=== PATIENT | female | born 1970 | race African-American/Black ===

== ENCOUNTER 2018-07-12 20:06 | Inpatient (IN) | payer MEDICAID ==
--- NOTE | 2018-07-12 20:43 | ED Physician Chart ---
ED Chief Complaint/HPI - Patient Information Date Seen:: 07/12/18 Time Seen:: 20:20 Chief Complaint:: anasarca History of Present Illness:: 47 [place]asarca diffuse swelling hx of htn ESRD ON HEMODIALYSIS mwf hx of seizure disorder multiple medical problems here for increased fluid overload and sob and hypoxia Allergies:: Allergies Allergy/AdvReac Type Severity Reaction Status Date / Time No Known Allergies Allergy Verified 07/12/18 20:15 Vitals:: Vital Signs - 8 hr 07/12/18 20:06 Temp 98.4 F HR 94 RR 18 BP 165/87 O2 Sat % 100 ED Review of Systems - Review of Systems General/Constitutional: No fever Skin: Skin lesions (cocyx lt lateral leg ulcer) Cardio Vascular: No chest pain Pulmonary: SOB GI: No vomiting, No diarrhea Endocrine: No polyuria Neurological: No syncope ED Past Medical History - Past Medical History Past Medical History: HTN, CAD, ESRD, Seizures Family Medical History - Family Member Mother History Unknown: Yes ED Physical Exam - Physical Examination Other Gen/Cons comments:: pt with eyes closed not too verbal Head: Atraumatic Other Skin comments:: decubiti coccyx and lt lower leg ulcer Respiratory: Nl effort/Exclusion Cardio Vascular: RRR Other Neuro/Psych comments:: aphasia and quadraplegianot toomany responses she is trying to look squint and squeeze rt hand ED Assessment - Assessment General Assessment: ESRD ON DIALYSIS WITH WOSENING ANASARCA SOB AND HYPOXIA REPORTED TO SAT 80'S IN [facility] HERE 100 PERCENT ON O2 ED Septic Shock - . Is Septic Shock (SBP<90, OR Lactate>4 mmol\L) present?: No - <6hrs of presentation: Vital Signs: Vital Signs - 8 hr 07/12/18 20:06 Temp 98.4 F HR 94 RR 18 BP 165/87 O2 Sat % 100 ED Reassessment (Disposition) - Reassessment Reassessment Condition:: Improved - Diagnosis Diagnosis:: ANASARCA ESRD SOB HYPOXIA - Patient Disposition Admitted to:: Telemetry Condition at Disposition:: Improved
[2018-07-12 21:10] LABS: % EOSINOPHILS 0.4 % (0.0-5.0); % LYMPHOCYTES 24.1 % (20.0-50.0); % MONOCYTES 7.2 % (2.0-10.0); % NEUTROPHILS 68.3 % (40.0-80.0); HEMATOCRIT 33.3 % (41.0-60); HEMOGLOBIN 11.2 gm/dL (12-16); MEAN CELL VOLUME 88.5 fl (81-100); MEAN CORPUSCULAR HEMOGLOBIN 29.6 pg (27.0-31.0); MEAN CORPUSCULAR HGB CONC 33.5 pg (28.0-36.0); MONOCYTE ABSOLUTE 0.6 Th/cmm (0.3-1.0); NEUTROPHILE ABSOLUTE 5.5 Th/cmm (1.8-8.0); PLATELET COUNT 143 Th/cmm (150-400); RED BLOOD COUNT 3.76 Mil/cmm (3.80-5.10); WHITE BLOOD COUNT 8.1 Th/cmm (4.8-10.8)
[2018-07-12 21:23] LABS: URINE SOURCE FOLEY PORT
[2018-07-12 21:33] LABS: ALB/GLOB RATIO 0.7 (1.0-1.8); BILIRUBIN,TOTAL 0.2 mg/dL (0.3-1.0); CALCIUM SERUM 8.7 mg/dL (8.6-10.3); CARBON DIOXIDE 26.4 mEq/L (21.0-31.0); CREATININE - SERUM 2.8 mg/dL (0.6-1.2); GFR AFRICAN-AMERICAN 23.1 ml/min (>90); GFR NON AFRICAN-AMERICAN 19.1 ml/min; POTASSIUM SERUM 4.4 mEq/L (3.5-5.1); TOTAL PROTEIN,SERUM 5.1 gm/dL (6.0-8.3)
[2018-07-12 21:34] LABS: TROP I 0.61 ng/mL (0.01-0.05)
[2018-07-12 21:42] LABS: URINE BILIRUBIN NEGATIVE (NEGATIVE); URINE BLOOD TRACE (NEGATIVE); URINE GLUCOSE (UA) NEGATIVE (NEGATIVE); URINE KETONE NEGATIVE (NEGATIVE); URINE LEUKOCYTE ESTERASE LARGE (NEGATIVE); URINE MICROSCOPIC INDICATED? YES; URINE NITRATE NEGATIVE (NEGATIVE); URINE PH 8.5 (4.6 - 8.0); URINE PROTEIN 100 mg/dL (NEGATIVE); URINE UROBILINOGEN 0.2 E.U./dL (0.2 - 1.0)
[2018-07-12 21:44] LABS: URINE CLARITY CLOUDY (CLEAR); URINE COLOR YELLOW
[2018-07-12 21:46] LABS: URINE BACTERIA MANY /hpf (NONE SEEN); URINE EPITHELIAL CELLS MODERATE /lpf (FEW); URINE WBC >100 /hpf (0-5)
[2018-07-12] MEDS ORDERED: Piperacillin Sodium/Tazobact 3.375 gm Vial IV ONE (21:49)
[2018-07-13] MEDS ORDERED: Dextrose 50% 50 mL Abboject IVP ONE (03:41)
[2018-07-13] MEDS: D5-0.45NS 1,000 ML IV SCH (04:03)
[2018-07-13] MEDS ORDERED: Dextrose 50% 50 mL Abboject IVP PRN (04:11)
[2018-07-13] MEDS ORDERED: GLUCAGON HCl 1 MG KIT IM PRN (04:11)
[2018-07-13 04:42] LABS: EOSINOPHILE ABSOLUTE 0.1 Th/cmm (0.1-0.4); HEMOGLOBIN 9.2 gm/dL (12-16); NEUTROPHILE ABSOLUTE 5.1 Th/cmm (1.8-8.0); WHITE BLOOD COUNT 7.8 Th/cmm (4.8-10.8)
[2018-07-13 04:49] LABS: % EOSINOPHILS 1.3 % (0.0-5.0); % LYMPHOCYTES 23.8 % (20.0-50.0); % MONOCYTES 9.4 % (2.0-10.0); % NEUTROPHILS 65.5 % (40.0-80.0); LYMPHOCYTE ABSOLUTE 1.9 Th/cmm (1.5-3.0); MEAN CELL VOLUME 88.1 fl (81-100); MEAN CORPUSCULAR HEMOGLOBIN 29.7 pg (27.0-31.0); MEAN CORPUSCULAR HGB CONC 33.8 pg (28.0-36.0); MEAN PLATELET VOLUME 8.1 fl; MONOCYTE ABSOLUTE 0.7 Th/cmm (0.3-1.0); PLATELET COUNT 133 Th/cmm (150-400); RED BLOOD COUNT 3.08 Mil/cmm (3.80-5.10); RED CELL DISTRIBUTION WIDTH 17.5 % (11.5-20.0)
[2018-07-13 04:53] LABS: HEMATOCRIT 27.2 % (41.0-60)
[2018-07-13 05:40] LABS: ANION GAP 8.5 (7.0-16.0); CALCIUM SERUM 8.2 mg/dL (8.6-10.3); CARBON DIOXIDE 27.8 mEq/L (21.0-31.0); CREATININE - SERUM 2.9 mg/dL (0.6-1.2); GFR AFRICAN-AMERICAN 22.2 ml/min (>90); GFR NON AFRICAN-AMERICAN 18.3 ml/min; POTASSIUM SERUM 4.3 mEq/L (3.5-5.1)
[2018-07-13] MEDS ORDERED: Piperacillin Sodium/Tazobact 2.25 gm Vial IV ONE (05:50)
[2018-07-13] MEDS: INSULIN ASPART SLIDING SCALE 100 UNITS/ML UNIT SUBQ SCH ×3 (06:09→19:09)
--- NOTE | 2018-07-13 08:37 | Diagnostic Imaging Report ---
Portable chest x-ray HISTORY: Shortness of breath The heart size appears generous. Density seen in the right lower hemithorax consistent with small to moderate right pleural effusion. IMPRESSION: 1. Findings consistent with a small to moderate right pleural effusion.
[2018-07-13] MEDS ORDERED: Albuterol/Ipratropium Neb 3 ML AERS HHN PRN (15:15)
[2018-07-13] MEDS: Docusate Sodium 100 mg/10 mL UD PO SCH (16:46)
--- NOTE | 2018-07-13 16:51 | History & Physical ---
ADMIT DATE: 07/12/2018 HISTORY OF PRESENT ILLNESS: The patient came to the Emergency Room from [facility]. Apparently, the patient was having severe facial swelling, extremity swelling, and decreased saturation. The patient was given glucagon in the ER. The patient's glucose came up with the patient known to have history of diabetes, was on insulin long acting. The patient known to have history of end-stage renal disease, on dialysis; history of hepatitis C; history of GERD, history of Parkinson; history of ____, history of seizures, and has functional quadriparesis. PHYSICAL EXAMINATION: GENERAL: The patient on examination was alert with generalized anasarca. HEAD: Normal. ENT: Normal. NECK: Supple, nontender. LUNGS: Bilateral rales. CARDIOVASCULAR SYSTEM: S1, S2 heard. ABDOMEN: Soft. CENTRAL NERVOUS SYSTEM: The patient is aphasic, quadriplegic. LABORATORY DATA: Reviewed. DIAGNOSES: Generalized anasarca, increasing renal failure, end-stage renal disease, shortness of breath, hypoxemia, history of diabetes, history of hypertension, history of anemia, quadriparesis, history of hepatitis, history of Parkinson, and history of seizures. PLAN: The patient is being admitted. We will go ahead and start on D5-1/2 at 50 mL an hour. A low insulin coverage and D50 if necessary. Nephrology will see the patient. The patient was also given antibiotics for infection, UTI. Dr. Ar Vásquez will see the patient as well. JOB# [id number]
--- NOTE | 2018-07-13 19:48 | Consultation ---
DATE OF CONSULTATION: 07/13/2018 PER REQUEST OF: Dr. Parkinson. HISTORY OF PRESENT ILLNESS: This patient was brought in from the [facility] "because of the fact some decrease in O2 saturation", how long or much more details are not known. The patient is aphasic, does not talk verbally, just looks at you. On direct questioning, she cannot tell us anything whatsoever. Most of the information is obtained from the chart. Tried to call the [facility], there is nobody on the telephone station to answer any questions at present time. TIME OF DICTATION: 7:00 p.m. The patient is a 47-year-old female black lady who is obese, whose blood pressure is 94/66, temperature 96.1, heart rate 96 per minute, respiratory rate 18 per minute, O2 saturation 100%. Neurologic examination is difficult to do because cannot communicate and does not follow any commands. Oropharynx could not be examined. Chest examination reveals reasonable air entry bilaterally. Heart sounds S1, S2 normally heard. No S3 or S4 noticed. The patient does have multiple scars and wounds on the legs. The patient also has a decubitus ulcer on the back. As per the nursing, the patient was not turned over. The patient has a dialysis catheter in the right groin. No other significant findings noticed for any other problem, but the history is significant and the pictures taken of the previous scars and injuries. History reveals the patient has hypothyroidism, chronic hypotension, Parkinson's disease. The patient is on hemodialysis, complete reasons not known with end-stage renal disease, but calculated GFR is 22%, which comes into chronic kidney disease 3. The patient also has a history of "functional quadriplegia," history of hepatitis C, hepatitis B, hiatal hernia, GERD, obesity and schizophrenia. The patient is on multiple medications, some of them may not be correct, so therefore I am not going to name the medications, but diagnosis remains same as what has been stated above. LABORATORY DATA: At present, the patient's biochemical data reveals hemoglobin 9.2 grams percent, WBC count 7.8 thousand, platelet count 133. TSH 1.21, sodium 134, potassium 4.3, chloride 102, CO2 content 27.8, anion gap 9.5, glucose 137, BUN 48 and creatinine 2.9. Calculated GFR for her is 22.2, which is pretty good. Considering that I think patient does not need dialysis today, need to evaluate and see if the BUN and creatinine goes up further and then maybe done accordingly. The fluid overload is a problem which is not so at present time. As a medication effect the patient is hypotensive. The patient may require more fluid or mineralocorticoid and need to be evaluated further. Other problems persist, which are being treated medically. Would discuss with Dr. Parkinson and need to be evaluated further. JOB# [id number]
[2018-07-13] MEDS: Atorvastatin Calcium 10 MG TAB PO SCH (21:05)
[2018-07-14] MEDS ORDERED: Albumin 25% 25gm/100mL 25 GM/100 ML BTL IV PRN
[2018-07-14] MEDS: INSULIN ASPART SLIDING SCALE 100 UNITS/ML UNIT SUBQ SCH ×5 (00:35→23:31)
[2018-07-14] MEDS: Levothyroxine 0.025 Mg Tab PO SCH (06:35)
[2018-07-14 07:49] LABS: HEMOGLOBIN 10.7 gm/dL (12-16); WHITE BLOOD COUNT 6.8 Th/cmm (4.8-10.8)
[2018-07-14 07:59] LABS: ALB/GLOB RATIO 0.6 (1.0-1.8); ALBUMIN 1.8 gm/dL (3.7-5.3); ANION GAP 13.2 (7.0-16.0); BILIRUBIN,TOTAL 0.3 mg/dL (0.3-1.0); CALCIUM SERUM 8.4 mg/dL (8.6-10.3); CARBON DIOXIDE 23.4 mEq/L (21.0-31.0); CREATININE - SERUM 3.2 mg/dL (0.6-1.2); GFR AFRICAN-AMERICAN 19.8 ml/min (>90); GFR NON AFRICAN-AMERICAN 16.4 ml/min; POTASSIUM SERUM 4.6 mEq/L (3.5-5.1); TOTAL PROTEIN,SERUM 4.9 gm/dL (6.0-8.3)
[2018-07-14 08:04] LABS: PLATELET COUNT 127 Th/cmm (150-400); RED BLOOD COUNT 3.64 Mil/cmm (3.80-5.10)
[2018-07-14 08:05] LABS: MEAN CORPUSCULAR HEMOGLOBIN 29.4 pg (27.0-31.0); MEAN CORPUSCULAR HGB CONC 33.4 pg (28.0-36.0); RED CELL DISTRIBUTION WIDTH 17.3 % (11.5-20.0)
[2018-07-14 08:24] LABS: BAND NEUTROPHILE 2 % (0-10); BASOPHIL 0 % (0-3); EOSINOPHIL 0 % (0-5); LYMPHOCYTE 26 % (20-50); MONOCYTE 10 % (2-10); NEUTROPHILS 62 % (40-80)
[2018-07-14] MEDS: Vitamin B Complex w/Vitamin C Tab PO SCH (08:27)
[2018-07-14] MEDS: Docusate Sodium 100 mg/10 mL UD PO SCH ×2 (08:27→17:33)
--- NOTE | 2018-07-14 12:04 | General Progress Note ---
Subjective - Review of Systems Service Date: 07/14/18 Subjective: awake, comfortable Objective - Results Result Diagrams: 07/14/18 05:00 07/14/18 05:00 Recent Labs: Laboratory Last Values WBC 6.8 Th/cmm (4.8-10.8) 07/14/18 05:00 RBC 3.64 Mil/cmm (3.80-5.10) L 07/14/18 05:00 Hgb 10.7 gm/dL (12-16) L 07/14/18 05:00 Hct 32.0 % (41.0-60) L 07/14/18 05:00 MCV 88.0 fl (81-100) 07/14/18 05:00 MCH 29.4 pg (27.0-31.0) 07/14/18 05:00 MCHC Differential 33.4 pg (28.0-36.0) 07/14/18 05:00 RDW 17.3 % (11.5-20.0) 07/14/18 05:00 Plt Count 127 Th/cmm (150-400) L 07/14/18 05:00 MPV 8.0 fl 07/14/18 05:00 Add Manual Diff YES 07/14/18 05:00 Neutrophils % 65.5 % (40.0-80.0) 07/13/18 04:00 Band Neutrophils % 2 % (0-10) 07/14/18 05:00 Lymphocytes % 23.8 % (20.0-50.0) 07/13/18 04:00 Monocytes % 9.4 % (2.0-10.0) 07/13/18 04:00 Eosinophils % 1.3 % (0.0-5.0) 07/13/18 04:00 Basophils % 0.0 % (0.0-2.0) 07/13/18 04:00 Neutrophils (Manual) 62 % (40-80) 07/14/18 05:00 Lymphocytes 26 % (20-50) 07/14/18 05:00 Monocytes 10 % (2-10) 07/14/18 05:00 Eosinophils 0 % (0-5) 07/14/18 05:00 Basophils 0 % (0-3) 07/14/18 05:00 Sodium 132 mEq/L (136-145) L 07/14/18 05:00 Potassium 4.6 mEq/L (3.5-5.1) 07/14/18 05:00 Chloride 100 mEq/L (98-107) 07/14/18 05:00 Carbon Dioxide 23.4 mEq/L (21.0-31.0) 07/14/18 05:00 Anion Gap 13.2 (7.0-16.0) 07/14/18 05:00 BUN 53 mg/dL (7-25) H 07/14/18 05:00 Creatinine 3.2 mg/dL (0.6-1.2) H 07/14/18 05:00 Est GFR ( Amer) 19.8 ml/min (>90) 07/14/18 05:00 Est GFR (Non-Af Amer) 16.4 ml/min 07/14/18 05:00 BUN/Creatinine Ratio 16.6 07/14/18 05:00 Glucose 163 mg/dL (70-105) H 07/14/18 05:00 POC Glucose 194 MG/DL (70 - 105) H 07/14/18 11:02 Whole Bld Lactic Acid 1.29 mmol/L (0.60-1.99) 07/12/18 20:50 Calcium 8.4 mg/dL (8.6-10.3) L 07/14/18 05:00 Total Bilirubin 0.3 mg/dL (0.3-1.0) 07/14/18 05:00 AST 14 U/L (13-39) 07/14/18 05:00 ALT 5 U/L (7-52) L 07/14/18 05:00 Alkaline Phosphatase 113 U/L (34-104) H 07/14/18 05:00 Creatine Kinase 20 U/L (30-223) L 07/12/18 20:50 Troponin I 0.49 ng/mL (0.01-0.05) H* 07/13/18 15:20 B-Natriuretic Peptide 515.0 pg/mL (5.0-100.0) H 07/13/18 04:00 Total Protein 4.9 gm/dL (6.0-8.3) L 07/14/18 05:00 Albumin 1.8 gm/dL (3.7-5.3) L 07/14/18 05:00 Globulin 3.1 gm/dL 07/14/18 05:00 Albumin/Globulin Ratio 0.6 (1.0-1.8) L 07/14/18 05:00 Triglycerides 53 mg/dL (<150) 07/13/18 04:00 Cholesterol 41 mg/dL (<200) 07/13/18 04:00 LDL Cholesterol Direct 11 mg/dL (75-193) L 07/13/18 04:00 HDL Cholesterol 24 mg/dL (23-92) 07/13/18 04:00 TSH 1.21 uIU/ml (0.34-5.60) 07/13/18 04:00 Urine Source S[place] 07/12/18 20:50 Urine Color YELLOW 07/12/18 20:50 Urine Clarity CLOUDY (CLEAR) H 07/12/18 20:50 Urine pH 8.5 (4.6 - 8.0) 07/12/18 20:50 Ur Specific [place] 1.015 (1.005-1.030) 07/12/18 20:50 Urine Protein 100 mg/dL (NEGATIVE) H 07/12/18 20:50 Urine Glucose (UA) NEGATIVE mg/dL (NEGATIVE) 07/12/18 20:50 Urine Ketones NEGATIVE mg/dL (NEGATIVE) 07/12/18 20:50 Urine Blood TRACE (NEGATIVE) 07/12/18 20:50 Urine Nitrate NEGATIVE (NEGATIVE) 07/12/18 20:50 Urine Bilirubin NEGATIVE (NEGATIVE) 07/12/18 20:50 Urine Urobilinogen 0.2 E.U./dL (0.2 - 1.0) 07/12/18 20:50 Ur Leukocyte Esterase LARGE (NEGATIVE) H 07/12/18 20:50 Urine RBC 2-5 /hpf (0-5) 07/12/18 20:50 Urine WBC >100 /hpf (0-5) H 07/12/18 20:50 Ur Epithelial Cells MODERATE /lpf (FEW) 07/12/18 20:50 Urine Bacteria MANY /hpf (NONE SEEN) H 07/12/18 20:50 Random Vancomycin 11.0 ug/mL (5.0-40.0) 07/14/18 05:00 - Physical Exam Vitals and I&O: Vital Signs Temp 96.2 F 07/14/18 11:54 Pulse 90 07/14/18 11:54 Resp 18 07/14/18 11:54 BP 130/25 07/14/18 11:54 Pulse Ox 100 07/14/18 11:54 Intake & Output 07/13/18 07/14/18 07/14/18 18:59 06:59 18:59 Intake Total 100 250 Output Total 50 Balance 100 200 Weight (lbs) 113.852 kg Intake: Intake, IV Amount 100 Piperacillin Sodium/ 100 Tazobact 2.25 gm In Sodium Chloride 0.9% 50 ml @ 100 mls/hr IV Q6H [facility] Rx#:[id number] Oral 250 Output: Urine 50 Other: # Bowel Movements 1 Stool Characteristics Soft Soft Weight Source Bedscale Active Medications: Current Medications Acetaminophen (Tylenol) 650 mg PO Q6H PRN PRN Reason: Pain or Fever >101 Stop: 09/11/18 15:14 Acetaminophen/Hydrocodone Bitart ([place] 5mg/325mg) 1 tab PO Q6H PRN PRN Reason: Pain (Severe) Stop: 09/11/18 15:14 Albuterol/Ipratropium (Duoneb Neb) 3 ml HHN Q4HRT PRN PRN Reason: Shortness of Breath or Wheeze Stop: 09/11/18 15:14 Ascorbic Acid (Vitamin C) 500 mg PO DAILY [facility] Stop: 09/12/18 08:59 Last Admin: 07/14/18 08:27 Dose: 500 mg Atorvastatin Calcium (Lipitor) 20 mg PO HS [facility] Stop: 09/11/18 20:59 Last Admin: 07/13/18 21:05 Dose: 20 mg Dextrose (D50w) 50 ml IVP PRN PRN PRN Reason: Blood Glucose less than 70 Stop: 09/11/18 04:10 Dextrose (Glutose 40%) 18.75 gm PO PRN PRN PRN Reason: Blood Glucose less than 70 Stop: 09/11/18 04:10 Docusate Sodium (Colace) 100 mg PO BID [facility] Stop: 09/11/18 16:59 Last Admin: 07/14/18 08:27 Dose: 100 mg Famotidine (Pepcid) 20 mg PO DAILY [facility] Stop: 09/12/18 08:59 Last Admin: 07/14/18 08:27 Dose: 20 mg Folic Acid (Folate) 1 mg PO DAILY [facility] Stop: 09/12/18 08:59 Last Admin: 07/14/18 08:27 Dose: 1 mg Glucagon (Glucagen) 1 mg IM PRN PRN PRN Reason: Blood Glucose less than 70 Stop: 09/11/18 04:10 Piperacillin Sod/Tazobactam (Sod 2.25 gm/ Sodium Chloride) 50 mls @ 100 mls/hr IV Q6H [facility] Stop: 09/11/18 05:59 Last Admin: 07/14/18 06:05 Dose: Not Given Dextrose/Sodium Chloride (D5-0.45ns) 1,000 mls @ 50 mls/hr IV .Q20H [facility] Stop: 09/11/18 02:29 Last Admin: 07/13/18 04:03 Dose: 50 mls/hr Insulin Aspart (Novolog Insulin Sliding Scale) 0 units SUBQ Q6HR [facility]; Protocol Stop: 09/11/18 05:59 Last Admin: 07/14/18 06:05 Dose: Not Given Levothyroxine Sodium (Synthroid) 0.025 mg PO QDAC [facility] Stop: 09/12/18 07:29 Last Admin: 07/14/18 06:35 Dose: 0.025 mg Miscellaneous (Vancomycin Iv Per Pharmacy) 1 ea MC PRN PRN PRN Reason: PROTOCOL Stop: 09/10/18 23:40 Oxcarbazepine (Trileptal) 600 mg PO BID [facility] Stop: 09/11/18 16:59 Last Admin: 07/14/18 08:27 Dose: 600 mg Risperidone (Risperdal) 2 mg PO HS [facility] Stop: 09/11/18 20:59 Last Admin: 07/13/18 21:05 Dose: 2 mg Senna (Senna) 17.2 mg PO BID [facility] Stop: 09/11/18 16:59 Last Admin: 07/14/18 08:27 Dose: 17.2 mg Sevelamer Carbonate (Renvela) 800 mg PO TIDWM [facility] Stop: 09/11/18 16:59 Last Admin: 07/14/18 08:27 Dose: 800 mg Temazepam (Restoril) 15 mg PO HS PRN; Protocol PRN Reason: Insomnia Stop: 09/11/18 15:14 Vitamin B Complex/Vit C/Folic Acid (Vitamin B Complex W/Vitamin C) 1 tab PO DAILY [facility] Stop: 09/12/18 08:59 Last Admin: 07/14/18 08:27 Dose: 1 tab Zinc Sulfate (Zinc Sulfate) 220 mg PO DAILY [facility] Stop: 09/12/18 08:59 Last Admin: 07/14/18 08:27 Dose: 220 mg General: Alert, Mild distress HEENT: Atraumatic, EOMI Neck: Supple, +2 carotid pulse wo bruit Cardiovascular: Regular rate, Normal S1, Normal S2 Lungs: Clear to auscultation Abdomen: Bowel sounds, Soft Extremities: Edema, Other (mild) Neurological: Sensation intact Skin: no Rash Psych/Mental Status: Mood NL Assessment/Plan - Assessment Assessment: ESRD on HD Hypothyroid Parkinson Ds. Fnc Quad Hep B,C GERD Left Calf ulcer Sacral Decub ulcer - Plan Plan: Lab - Result Diagrams 07/14/18 05:00 07/14/18 05:00 Current Medications Acetaminophen (Tylenol) 650 mg PO Q6H PRN PRN Reason: Pain or Fever >101 Stop: 09/11/18 15:14 Acetaminophen/Hydrocodone Bitart ([place] 5mg/325mg) 1 tab PO Q6H PRN PRN Reason: Pain (Severe) Stop: 09/11/18 15:14 Albuterol/Ipratropium (Duoneb Neb) 3 ml HHN Q4HRT PRN PRN Reason: Shortness of Breath or Wheeze Stop: 09/11/18 15:14 Ascorbic Acid (Vitamin C) 500 mg PO DAILY [facility] Stop: 09/12/18 08:59 Last Admin: 07/14/18 08:27 Dose: 500 mg Atorvastatin Calcium (Lipitor) 20 mg PO HS [facility] Stop: 09/11/18 20:59 Last Admin: 07/13/18 21:05 Dose: 20 mg Dextrose (D50w) 50 ml IVP PRN PRN PRN Reason: Blood Glucose less than 70 Stop: 09/11/18 04:10 Dextrose (Glutose 40%) 18.75 gm PO PRN PRN PRN Reason: Blood Glucose less than 70 Stop: 09/11/18 04:10 Docusate Sodium (Colace) 100 mg PO BID [facility] Stop: 09/11/18 16:59 Last Admin: 07/14/18 08:27 Dose: 100 mg Famotidine (Pepcid) 20 mg PO DAILY [facility] Stop: 09/12/18 08:59 Last Admin: 07/14/18 08:27 Dose: 20 mg Folic Acid (Folate) 1 mg PO DAILY [facility] Stop: 09/12/18 08:59 Last Admin: 07/14/18 08:27 Dose: 1 mg Glucagon (Glucagen) 1 mg IM PRN PRN PRN Reason: Blood Glucose less than 70 Stop: 09/11/18 04:10 Piperacillin Sod/Tazobactam (Sod 2.25 gm/ Sodium Chloride) 50 mls @ 100 mls/hr IV Q6H [facility] Stop: 09/11/18 05:59 Last Admin: 07/14/18 06:05 Dose: Not Given Dextrose/Sodium Chloride (D5-0.45ns) 1,000 mls @ 50 mls/hr IV .Q20H [facility] Stop: 09/11/18 02:29 Last Admin: 07/13/18 04:03 Dose: 50 mls/hr Insulin Aspart (Novolog Insulin Sliding Scale) 0 units SUBQ Q6HR [facility]; Protocol Stop: 09/11/18 05:59 Last Admin: 07/14/18 06:05 Dose: Not Given Levothyroxine Sodium (Synthroid) 0.025 mg PO QDAC [facility] Stop: 09/12/18 07:29 Last Admin: 07/14/18 06:35 Dose: 0.025 mg Miscellaneous (Vancomycin Iv Per Pharmacy) 1 ea MC PRN PRN PRN Reason: PROTOCOL Stop: 09/10/18 23:40 Oxcarbazepine (Trileptal) 600 mg PO BID [facility] Stop: 09/11/18 16:59 Last Admin: 07/14/18 08:27 Dose: 600 mg Risperidone (Risperdal) 2 mg PO HS [facility] Stop: 09/11/18 20:59 Last Admin: 07/13/18 21:05 Dose: 2 mg Senna (Senna) 17.2 mg PO BID [facility] Stop: 09/11/18 16:59 Last Admin: 07/14/18 08:27 Dose: 17.2 mg Sevelamer Carbonate (Renvela) 800 mg PO TIDWM [facility] Stop: 09/11/18 16:59 Last Admin: 07/14/18 08:27 Dose: 800 mg Temazepam (Restoril) 15 mg PO HS PRN; Protocol PRN Reason: Insomnia Stop: 09/11/18 15:14 Vitamin B Complex/Vit C/Folic Acid (Vitamin B Complex W/Vitamin C) 1 tab PO DAILY [facility] Stop: 09/12/18 08:59 Last Admin: 07/14/18 08:27 Dose: 1 tab Zinc Sulfate (Zinc Sulfate) 220 mg PO DAILY [facility] Stop: 09/12/18 08:59 Last Admin: 07/14/18 08:27 Dose: 220 mg Lab - Result Diagrams 07/14/18 05:00 07/14/18 05:00 scheduled for HD today Cr. more elevated w/ peripheral edema continue wound care Nutritional Asmnt/Malnutr-PDOC - Dietary Evaluation Malnutrition Findings (Please click <Entered> for more info): Nutritional Asmnt/Malnutrition Start: 07/13/18 13: 54 Text: Status: Complete Freq: Protocol: Document 07/13/18 13:56 MMULHERN (Rec: 07/13/18 14:10 [email or web address] [id number]) Nutritional Asmnt/Malnutrition Patient General Information Nutritional Screening Consult Diagnosis ESRD, anasarca Pertinent Medical Hx/Surgical Hx Seizure, hep C, diabetes, CAD, HTN, CVA, quadreplegia, Parkinsons, ESRD Subjective Information Consult received for "Diabetic ". Per nursing notes, patient receives hemodialysis MWF and patient is non-verbal. Patient with 2+ pitting edema. Current Diet Order/ Nutrition Support Renal diet Patient / S.O Not Indicated Pertinent Medications D50W, D5-0.45NS @50 ml/hr, Glucagon, Novolog Pertinent Labs (07/13) Na 134, BUN 48, Cr 2.9, glucose 41-137, Ca 8.2, BNP 515, albumin 2 Nutritional Hx/Data Height 1.73 m Height (Calculated Centimeters) 172.7 Current Weight (lbs) 113.852 kg Weight (Calculated Kilograms) 113.9 Weight (Calculated Grams) 501287.7 [place] Body Weight 140 % [place] Body Weight 179 Body Mass Index (BMI) 38.1 Recent Weight Change No Weight Status Morbidly Obese GI Symptoms GI Symptoms None Last BM 07/13 x 1 Difficult in: Chewing Food Allergies No Cultural/Ethnic/Yazidi Belief none indicated Usual diet at home unknown Skin Integrity/Comment: Arian 10, ulceration on sacrum, left lower leg, abrasion on L heel, scar on right leg. Current %PO Good (75-100%) Estimated Nutritional Goals BEE in Kcals: Adj wt of IBW Calories/Kcals/Kg 27-32 kcal/kg (using 76.2kg ADj wt) Kcals Calculated ~9181-4288 kcal/day Protein g/k.2-1.5 gm/kg using Adj wt Protein Calculated ~90-115 gm/day Fluid: ml Per MD due to HD Nutritional Problem 2. Problem Problem Altered nutrition related lab values related to Etiology episodes of hypoglycemia, electrolyte imbalance aeb Signs/Symptoms: Na 134, glucose 41-137, Ca 8.2 1. Problem Problem Increased nutrient needs related to Etiology hypermetabolic state, impaired skin integrity aeb Signs/Symptoms: Pt on Hemodialysis and with multiple ulcerations Intervention/Recommendation Comments 1. Continue Renal diet as tolerated by patient. No need for DM restriction at this time due to hypoglycemia. 2. Consider fluid restriction due to HD, hyponatremia and edema. 3. Consider adding Prosource 1 packet with each meal for an additional 45gm protein. Expected Outcomes/Goals Expected Outcomes/Goals Oral intake >75% of meals, weight stable or trend toward ideal body weight, nutrition related labs WNL
--- NOTE | 2018-07-14 13:34 | Consultation ---
Consult Note - Consult Note Service Date: 07/14/18 Referring Physician: Brittney Parkinson Consult Note: PHYSICIAN Consultation Note: Date of Admission: 07/12/18 Purpose of Consultation: Chief Complaint: Patient MONTEZ HERNANDEZ was admitted to [facility] with ESRD, [facility]. 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 Patient was found to be hypotensive so glucagon was given in the ER. Glucose was also given. On initial evaluation, her temperature was 98.4F and the WBC count was 8100. Urinalysis showed pyuria and bacteriuria. Vancomycin IV and Zosyn was started. ID consult was called. 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 Diagnoses TYPE 2 DIABETES MELLITUS WITHOUT COMPLICATIONS (07/12/18) PARKINSON'S DISEASE (07/12/18) QUADRIPLEGIA, UNSPECIFIED (07/12/18) ESSENTIAL (PRIMARY) HYPERTENSION (07/12/18) END STAGE RENAL DISEASE (07/12/18) HYPOXEMIA (07/12/18) WEAKNESS (07/12/18) GENERALIZED EDEMA (07/12/18) DEPENDENCE ON RENAL DIALYSIS (07/12/18) Allergies Allergy/AdvReac Type Severity Reaction Status Date / Time No Known Allergies Allergy Verified 07/12/18 20:15 Vital Signs Temp 96.2 F 07/14/18 11:54 Pulse 90 07/14/18 11:54 Resp 18 07/14/18 11:54 BP 130/25 07/14/18 11:54 Pulse Ox 100 07/14/18 11:54 Intake & Output 07/13/18 07/14/18 07/14/18 18:59 06:59 18:59 Intake Total 100 250 Output Total 50 Balance 100 200 Weight (lbs) 113.852 kg Intake: Intake, IV Amount 100 Piperacillin Sodium/ 100 Tazobact 2.25 gm In Sodium Chloride 0.9% 50 ml @ 100 mls/hr IV Q6H [facility] Rx#:[id number] Oral 250 Output: Urine 50 Other: # Bowel Movements 1 Stool Characteristics Soft Soft Weight Source Bedscale Laboratory Results - last 24 hr 07/13/18 07/13/18 07/13/18 03:36 15:20 16:29 WBC RBC Hgb Hct MCV MCH MCHC Differential RDW Plt Count MPV Add Manual Diff Band Neutrophils % Neutrophils (Manual) Lymphocytes Monocytes Eosinophils Basophils Sodium Potassium Chloride Carbon Dioxide Anion Gap BUN Creatinine Est GFR ( Amer) Est GFR (Non-Af Amer) BUN/Creatinine Ratio Glucose POC Glucose 38 L* 136 H Calcium Total Bilirubin AST ALT Alkaline Phosphatase Troponin I 0.49 H* Total Protein Albumin Globulin Albumin/Globulin Ratio Random Vancomycin 07/14/18 07/14/18 07/14/18 00:15 05:00 05:00 WBC RBC Hgb Hct MCV MCH MCHC Differential RDW Plt Count MPV Add Manual Diff Band Neutrophils % Neutrophils (Manual) Lymphocytes Monocytes Eosinophils Basophils Sodium 132 L Potassium 4.6 Chloride 100 Carbon Dioxide 23.4 Anion Gap 13.2 BUN 53 H Creatinine 3.2 H Est GFR ( Amer) 19.8 Est GFR (Non-Af Amer) 16.4 BUN/Creatinine Ratio 16.6 Glucose 163 H POC Glucose 168 H Calcium 8.4 L Total Bilirubin 0.3 AST 14 ALT 5 L Alkaline Phosphatase 113 H Troponin I Total Protein 4.9 L Albumin 1.8 L Globulin 3.1 Albumin/Globulin Ratio 0.6 L Random Vancomycin 11.0 07/14/18 07/14/18 07/14/18 05:00 06:04 11:02 WBC 6.8 RBC 3.64 L Hgb 10.7 L Hct 32.0 L MCV 88.0 MCH 29.4 MCHC Differential 33.4 RDW 17.3 Plt Count 127 L MPV 8.0 Add Manual Diff YES Band Neutrophils % 2 Neutrophils (Manual) 62 Lymphocytes 26 Monocytes 10 Eosinophils 0 Basophils 0 Sodium Potassium Chloride Carbon Dioxide Anion Gap BUN Creatinine Est GFR ( Amer) Est GFR (Non-Af Amer) BUN/Creatinine Ratio Glucose POC Glucose 149 H 194 H Calcium Total Bilirubin AST ALT Alkaline Phosphatase Troponin I Total Protein Albumin Globulin Albumin/Globulin Ratio Random Vancomycin Home Medication Medication Instructions Recorded Type Acetaminophen [Tylenol] 650 mg PO Q6HR PRN 07/12/18 History Albuterol/Ipratropium Neb [Duoneb 3 ml HHN Q4HR PRN 07/12/18 History Neb] Ascorbic Acid [Vitamin C] 500 mg PO DAILY 07/12/18 History Atorvastatin Calcium [Lipitor] 20 mg PO HS 07/12/18 History Docusate Sodium [Colace] 100 mg PO BID 07/12/18 History Famotidine 20 mg PO BID 07/12/18 History Folic Acid [Folate*] 1 mg PO DAILY 07/12/18 History Hydrocodone/Acetaminophen [Medina 1 tab PO Q6HR PRN 07/12/18 History 325 mg-5 mg*] Insulin Aspart Sliding Scale See Protocol SUBQ ACHS 07/12/18 History [NovoLOG INSULIN SLIDING SCALE] Insulin Glargine,Hum.rec.anlog 25 unit SUBQ DAILY 07/12/18 History [Lantus Solostar] Insulin Lispro [Humalog] 5 unit SUBQ TID 07/12/18 History Levothyroxine [Synthroid] 0.025 mg PO QDAC 07/12/18 History Midodrine [Proamatine] 10 mg PO BID 07/12/18 History Oxcarbazepine [Trileptal*] 600 mg PO BID 07/12/18 History Risperidone [Risperdal] 2 mg PO HS 07/12/18 History Sennosides [Senokot] 2 tab PO BID 07/12/18 History Sevelamer Carbonate [Renvela] 800 mg PO TID 07/12/18 History Temazepam [Restoril*] 15 mg PO HS PRN 07/12/18 History Vit B Comp No.3/Folic/C/Biotin 1 tab PO DAILY 07/12/18 History [Nephro-Farzad Rx Tablet] Zinc Sulfate 220 mg PO DAILY 07/12/18 History Current Medications Generic Name Dose Route Start Last Admin Trade Name Freq PRN Reason Stop Dose Admin Acetaminophen 650 mg 07/13/18 15:15 Tylenol PO 09/11/18 15:14 Q6H PRN Pain or Fever >101 Acetaminophen/Hydrocodone Bitart 1 tab 07/13/18 15:15 Medina 5mg/325mg PO 09/11/18 15:14 Q6H PRN Pain (Severe) Albuterol/Ipratropium 3 ml 07/13/18 15:15 Duoneb Neb HHN 09/11/18 15:14 Q4HRT PRN Shortness of Breath or Wheeze Ascorbic Acid 500 mg 07/14/18 09:00 07/14/18 08:27 Vitamin C PO 09/12/18 08:59 500 mg DAILY VIKTORIA Administration Atorvastatin Calcium 20 mg 07/13/18 21:00 07/13/18 21:05 Lipitor PO 09/11/18 20:59 20 mg HS VIKTORIA Administration Dextrose 50 ml 07/13/18 04:11 D50w IVP 09/11/18 04:10 PRN PRN Blood Glucose less than 70 Dextrose 18.75 gm 07/13/18 04:11 Glutose 40% PO 09/11/18 04:10 PRN PRN Blood Glucose less than 70 Docusate Sodium 100 mg 07/13/18 17:00 07/14/18 08:27 Colace PO 09/11/18 16:59 100 mg BID VIKTORIA Administration Famotidine 20 mg 07/14/18 09:00 07/14/18 08:27 Pepcid PO 09/12/18 08:59 20 mg DAILY VIKTORIA Administration Folic Acid 1 mg 07/14/18 09:00 07/14/18 08:27 Folate PO 09/12/18 08:59 1 mg DAILY VIKTORIA Administration Glucagon 1 mg 07/13/18 04:11 Glucagen IM 09/11/18 04:10 PRN PRN Blood Glucose less than 70 Heparin Sodium (Porcine) 5,000 units 07/14/18 00:00 Heparin HD 07/15/18 00:00 UD VIKTORIA Piperacillin Sod/Tazobactam 50 mls @ 100 mls/hr 07/13/18 06:00 07/14/18 13:01 Sod 2.25 gm/ Sodium Chloride IV 09/11/18 05:59 100 mls/hr Q6H VIKTORIA Administration Dextrose/Sodium Chloride 1,000 mls @ 50 mls/hr 07/13/18 02:30 07/13/18 04:03 D5-0.45ns IV 09/11/18 02:29 50 mls/hr .Q20H VIKTORIA Administration Albumin Human 25 gm in 100 mls @ 50 mls/hr 07/14/18 00:00 Albuminar 25% IV 07/14/18 23:59 UD PRN BP Support During HD Insulin Aspart 0 units 07/13/18 06:00 07/14/18 12:17 Novolog Insulin Sliding Scale SUBQ 09/11/18 05:59 Not Given Q6HR VIKTORIA Protocol Levothyroxine Sodium 0.025 mg 07/14/18 07:30 07/14/18 06:35 Synthroid PO 09/12/18 07:29 0.025 mg QDAC VIKTORIA Administration Miscellaneous 1 ea 07/12/18 23:41 Vancomycin Iv Per Pharmacy 09/10/18 23:40 PRN PRN PROTOCOL Oxcarbazepine 600 mg 07/13/18 17:00 07/14/18 08:27 Trileptal PO 09/11/18 16:59 600 mg BID VIKTORIA Administration Risperidone 2 mg 07/13/18 21:00 07/13/18 21:05 Risperdal PO 09/11/18 20:59 2 mg HS VIKTORIA Administration Senna 17.2 mg 07/13/18 17:00 07/14/18 08:27 Senna PO 09/11/18 16:59 17.2 mg BID VIKTORIA Administration Sevelamer Carbonate 800 mg 07/13/18 17:00 07/14/18 13:03 Renvela PO 09/11/18 16:59 Not Given TIDWM VIKTORIA Temazepam 15 mg 07/13/18 15:15 Restoril PO 09/11/18 15:14 HS PRN Insomnia Protocol Vitamin B Complex/Vit C/Folic Acid 1 tab 07/14/18 09:00 07/14/18 08:27 Vitamin B Complex W/Vitamin C PO 09/12/18 08:59 1 tab DAILY VIKTORIA Administration Zinc Sulfate 220 mg 07/14/18 09:00 07/14/18 08:27 Zinc Sulfate PO 09/12/18 08:59 220 mg DAILY VIKTORIA Administration Review of Systems: A 12 point ROS was reviewed with the pertinent positive and negatives noted in the HPI. General/Constitutional: No fever, no chills. Has generalized weakness. Skin: Skin lesions (cocyx lt lateral leg ulcer) Cardio Vascular: No chest pain, no palpitations. The patient is swelling of the legs and face Pulmonary: Complains of SOB, no cough GI: No vomiting, No diarrhea, no abdominal pain. patient. Endocrine: No polyuria Neurological: No syncope Social History Smoking Status Unknown if ever smoked Drug Use No Alcohol Use No Family Medical History Unknown. Physical Exam: General: Comfortable, not in acute distress. HEENT: Head: Normocytic, atraumatic. Oral cavity: Moist, pink tongue eyes: Pallor is present icterus. Pupil PERRLA. EOMI. Neck: Supple, no JVD to be. Cardio: S1 and S2 within normal limits regular rhythm no murmur or gallop. Respiratory: Vesicular sounds, no crackles. Abdominal: Soft, nontender, nondistended bowel sounds present. Genital/Urinary: Extremities: No sinus no clubbing no edema. Right-sided femoral tunneled catheter for hemodialysis Neurological: Alert, awake. Assessment: 1. Staph bacteremia. Suspect line Sepsis. 2. CK D stage V on hemodialysis 3. Hypoglycemia. 4. Diabetes mellitus type 1 with episodes of hypoglycemia. 5. Hypertension. 6. Anemia of chronic disease. 7. Coronary artery disease, 8. CHF.. 9. Anasarca Plan: Repeat blood cultures. Continue vancomycin and Zosyn. CT scan abdomen pelvis and chest. Echocardiogram. Thank you, Dr. Parkinson for involving me in taking care of this patient. Brady, Ar Vásquez M.D. [id number]
[2018-07-14] MEDS ORDERED: Heparin Sod 1,000 Units/mL 10ml HD ONE (14:35)
--- NOTE | 2018-07-14 16:28 | Consultation ---
DATE OF CONSULTATION: 07/13/[address] Parkinson. HISTORY AND PHYSICAL: This is a 47-year-old morbidly obese -[place] female patient who has expressive aphasia. The patient was brought to the Emergency Room, history available from the chart. The patient is hard to give any history. The patient has swollen legs, face and atypical chest pain. PAST MEDICAL HISTORY: Hepatitis B and C, iron deficiency anemia, diabetes mellitus type 2, diabetic CKD stage 5, end-stage renal disease, on dialysis, Parkinson's disease, seizure disorder, hypothyroid, quadriplegia. FAMILY HISTORY: Unremarkable. SOCIAL HISTORY: No history of smoking, alcohol abuse. ALLERGIES: No known allergies. PHYSICAL EXAMINATION: VITAL SIGNS: Blood pressure 150/80, pulse 70, respirations 20. HEAD: Normocephalic. No lumps or bumps. EYES: Pupils equal, reactive to light. Fundi show AV nicking, sclerae white, conjunctivae pink. NECK: Carotid 2+. Normal upstroke. JVD 10 cm above sternal angle. Thyroid not palpable. Lymph nodes not palpable. CHEST: Shows increased AP diameter. No kyphosis, scoliosis. LUNGS: Bilateral rales. Decreased breath sounds both the bases. HEART: PMI sixth intercostal space with lateral to midclavicular line. S1, S2, S3, S4, soft systolic murmur. ABDOMEN: Soft. Liver, spleen not palpable. No organomegaly. Bowel sounds active. NEUROLOGIC: Difficult to evaluate. EXTREMITIES: Peripheral pulses 2+. No pedal edema. The patient has slightly elevated BNP level, probably secondary to chronic kidney disease stage 5. PLAN: Admit the patient. We will get a BNP level, echocardiogram. Continue dialysis with ultrafiltration and IV antibiotics for urinary tract infection. JOB# [id number]
[2018-07-14] MEDS: Atorvastatin Calcium 10 MG TAB PO SCH (21:07)
[2018-07-14] MEDS: D5-0.45NS 1,000 ML IV SCH (23:19)
[2018-07-15] MEDS: Levothyroxine 0.025 Mg Tab PO SCH (06:34)
[2018-07-15] MEDS: INSULIN ASPART SLIDING SCALE 100 UNITS/ML UNIT SUBQ SCH ×3 (06:55→18:07)
[2018-07-15] MEDS: Docusate Sodium 100 mg/10 mL UD PO SCH ×2 (08:35→18:08)
--- NOTE | 2018-07-15 08:43 | Diagnostic Imaging Report ---
Exam: CT examination of chest. HISTORY sepsis. Total DLP equals 966 CTDI equals 17.5. Findings: Multiple contiguous thin section of the chest were obtained from thoracic outlet to the upper abdomen without administration of contrast material, no prior studies available comparison. The study demonstrates a normal appearance of right vessels of the neck. Adenopathy is difficult to exclude due lack of the contrast material Vascular calcification, aortic calcifications noted. There is evidence of extensive bilateral pneumonia with superimposed effusions. Bony thorax is intact. Mediastinal structures midline the heart is not enlarged. IMPRESSION: Bilateral pneumonia superimposed effusions. Clinical correlation follow-up exam might be helpful.
--- NOTE | 2018-07-15 08:48 | Diagnostic Imaging Report ---
Exam: CT examination of the pelvis. HISTORY: Sepsis. Total DLP equals 966 CTDI equals 17.5 Findings: Multiple contiguous thin section of the abdomen pelvis obtained from lower thorax to pubic symphysis without the administration of oral or intravenous contrast material therefore the study is somewhat limited. No prior studies available comparison. The study demonstrates bilateral pneumonia effusions. Right femoral catheter line terminates in superior vena cava. The liver and spleen are intact. The kidneys demonstrate multiple bilateral cysts. There is no evidence of obstructive uropathy or nephrolithiasis Aortic is calcified. The visualized pancreas is intact. The gallbladder demonstrates small calcification in the most dependent portion of gallbladder or origin the common bile duct. Clinical correlation and ultrasound examination would be helpful. No free fluid is noted. There is no evidence of diverticular disease diverticulitis. Moderate fecal content is noted throughout the colon. Rectal wall thickening is noted clinical correlation to visualization recommended. Urinary bladder is contracted with for catheter There is evidence for mild anasarca. There is no evidence of diverticular disease of diverticulitis. Bony structures demonstrate no evidence for lytic or blastic changes. IMPRESSION: Bilateral renal cysts. Cholelithiasis, question of calculus in the common bile duct, ultrasound exam may be helpful. Right femoral line terminates in superior vena cava. Rectal wall thickening clinical correlation recommended. Anasarca.
[2018-07-15] MEDS: Vitamin B Complex w/Vitamin C Tab PO SCH (09:00)
[2018-07-15] MEDS ORDERED: Probiotic Screen MC PRN (11:45)
--- NOTE | 2018-07-15 13:58 | General Progress Note ---
Subjective - Review of Systems Service Date: 07/15/18 Subjective: more awake, comfortable, verbal Objective - Results Result Diagrams: 07/14/18 05:00 07/14/18 05:00 Recent Labs: Laboratory Last Values WBC 6.8 Th/cmm (4.8-10.8) 07/14/18 05:00 RBC 3.64 Mil/cmm (3.80-5.10) L 07/14/18 05:00 Hgb 10.7 gm/dL (12-16) L 07/14/18 05:00 Hct 32.0 % (41.0-60) L 07/14/18 05:00 MCV 88.0 fl (81-100) 07/14/18 05:00 MCH 29.4 pg (27.0-31.0) 07/14/18 05:00 MCHC Differential 33.4 pg (28.0-36.0) 07/14/18 05:00 RDW 17.3 % (11.5-20.0) 07/14/18 05:00 Plt Count 127 Th/cmm (150-400) L 07/14/18 05:00 MPV 8.0 fl 07/14/18 05:00 Add Manual Diff YES 07/14/18 05:00 Neutrophils % 65.5 % (40.0-80.0) 07/13/18 04:00 Band Neutrophils % 2 % (0-10) 07/14/18 05:00 Lymphocytes % 23.8 % (20.0-50.0) 07/13/18 04:00 Monocytes % 9.4 % (2.0-10.0) 07/13/18 04:00 Eosinophils % 1.3 % (0.0-5.0) 07/13/18 04:00 Basophils % 0.0 % (0.0-2.0) 07/13/18 04:00 Neutrophils (Manual) 62 % (40-80) 07/14/18 05:00 Lymphocytes 26 % (20-50) 07/14/18 05:00 Monocytes 10 % (2-10) 07/14/18 05:00 Eosinophils 0 % (0-5) 07/14/18 05:00 Basophils 0 % (0-3) 07/14/18 05:00 Sodium 132 mEq/L (136-145) L 07/14/18 05:00 Potassium 4.6 mEq/L (3.5-5.1) 07/14/18 05:00 Chloride 100 mEq/L (98-107) 07/14/18 05:00 Carbon Dioxide 23.4 mEq/L (21.0-31.0) 07/14/18 05:00 Anion Gap 13.2 (7.0-16.0) 07/14/18 05:00 BUN 53 mg/dL (7-25) H 07/14/18 05:00 Creatinine 3.2 mg/dL (0.6-1.2) H 07/14/18 05:00 Est GFR ( Amer) 19.8 ml/min (>90) 07/14/18 05:00 Est GFR (Non-Af Amer) 16.4 ml/min 07/14/18 05:00 BUN/Creatinine Ratio 16.6 07/14/18 05:00 Glucose 163 mg/dL (70-105) H 07/14/18 05:00 POC Glucose 208 MG/DL (70 - 105) H 07/15/18 11:28 Whole Bld Lactic Acid 1.29 mmol/L (0.60-1.99) 07/12/18 20:50 Calcium 8.4 mg/dL (8.6-10.3) L 07/14/18 05:00 Total Bilirubin 0.3 mg/dL (0.3-1.0) 07/14/18 05:00 AST 14 U/L (13-39) 07/14/18 05:00 ALT 5 U/L (7-52) L 07/14/18 05:00 Alkaline Phosphatase 113 U/L (34-104) H 07/14/18 05:00 Creatine Kinase 20 U/L (30-223) L 07/12/18 20:50 Troponin I 0.49 ng/mL (0.01-0.05) H* 07/13/18 15:20 B-Natriuretic Peptide 515.0 pg/mL (5.0-100.0) H 07/13/18 04:00 Total Protein 4.9 gm/dL (6.0-8.3) L 07/14/18 05:00 Albumin 1.8 gm/dL (3.7-5.3) L 07/14/18 05:00 Globulin 3.1 gm/dL 07/14/18 05:00 Albumin/Globulin Ratio 0.6 (1.0-1.8) L 07/14/18 05:00 Triglycerides 53 mg/dL (<150) 07/13/18 04:00 Cholesterol 41 mg/dL (<200) 07/13/18 04:00 LDL Cholesterol Direct 11 mg/dL (75-193) L 07/13/18 04:00 HDL Cholesterol 24 mg/dL (23-92) 07/13/18 04:00 TSH 1.21 uIU/ml (0.34-5.60) 07/13/18 04:00 Urine Source [place] 07/12/18 20:50 Urine Color YELLOW 07/12/18 20:50 Urine Clarity CLOUDY (CLEAR) H 07/12/18 20:50 Urine pH 8.5 (4.6 - 8.0) 07/12/18 20:50 Ur Specific [place] 1.015 (1.005-1.030) 07/12/18 20:50 Urine Protein 100 mg/dL (NEGATIVE) H 07/12/18 20:50 Urine Glucose (UA) NEGATIVE mg/dL (NEGATIVE) 07/12/18 20:50 Urine Ketones NEGATIVE mg/dL (NEGATIVE) 07/12/18 20:50 Urine Blood TRACE (NEGATIVE) 07/12/18 20:50 Urine Nitrate NEGATIVE (NEGATIVE) 07/12/18 20:50 Urine Bilirubin NEGATIVE (NEGATIVE) 07/12/18 20:50 Urine Urobilinogen 0.2 E.U./dL (0.2 - 1.0) 07/12/18 20:50 Ur Leukocyte Esterase LARGE (NEGATIVE) H 07/12/18 20:50 Urine RBC 2-5 /hpf (0-5) 07/12/18 20:50 Urine WBC >100 /hpf (0-5) H 07/12/18 20:50 Ur Epithelial Cells MODERATE /lpf (FEW) 07/12/18 20:50 Urine Bacteria MANY /hpf (NONE SEEN) H 07/12/18 20:50 Random Vancomycin 20.0 ug/mL (5.0-40.0) 07/15/18 10:15 - Physical Exam Vitals and I&O: Vital Signs Temp 96.9 F 07/15/18 11:57 Pulse 99 07/15/18 11:57 Resp 18 07/15/18 11:57 BP 152/59 07/15/18 11:57 Pulse Ox 100 07/15/18 11:57 Intake & Output 07/14/18 07/15/18 07/15/18 18:59 06:59 18:59 Intake Total 350 50 50 Output Total 25 50 Balance 325 0 50 Weight (lbs) 113.852 kg 113.852 kg Intake: Intake, IV Amount 350 50 50 Piperacillin Sodium/ 100 50 50 Tazobact 2.25 gm In Sodium Chloride 0.9% 50 ml @ 100 mls/hr IV Q6H [facility] Rx#:[id number] Vancomycin HCl 1 gm In 250 Sodium Chloride 0.9% 250 ml @ 165 mls/hr IV Q1H [facility] Rx#:[id number] Output: Urine 25 50 Other: # Bowel Movements 1 1 Stool Characteristics Formed Formed Brown Brown Weight Source Estimated Bedscale Active Medications: Current Medications Acetaminophen (Tylenol) 650 mg PO Q6H PRN PRN Reason: Pain or Fever >101 Stop: 09/11/18 15:14 Acetaminophen/Hydrocodone Bitart ([place] 5mg/325mg) 1 tab PO Q6H PRN PRN Reason: Pain (Severe) Stop: 09/11/18 15:14 Albuterol/Ipratropium (Duoneb Neb) 3 ml HHN Q4HRT PRN PRN Reason: Shortness of Breath or Wheeze Stop: 09/11/18 15:14 Ascorbic Acid (Vitamin C) 500 mg PO DAILY [facility] Stop: 09/12/18 08:59 Last Admin: 07/15/18 08:33 Dose: 500 mg Atorvastatin Calcium (Lipitor) 20 mg PO [facility] Stop: 09/11/18 20:59 Last Admin: 07/14/18 21:07 Dose: 20 mg [place] Oil/Brazilian Balsam/Trypsin (Venelex) 1 appl TP DAILY [facility] Stop: 09/13/18 08:59 Dextrose (D50w) 50 ml IVP PRN PRN PRN Reason: Blood Glucose less than 70 Stop: 09/11/18 04:10 Dextrose (Glutose 40%) 18.75 gm PO PRN PRN PRN Reason: Blood Glucose less than 70 Stop: 09/11/18 04:10 Docusate Sodium (Colace) 100 mg PO BID [facility] Stop: 09/11/18 16:59 Last Admin: 07/15/18 08:35 Dose: 100 mg Famotidine (Pepcid) 20 mg PO DAILY [facility] Stop: 09/12/18 08:59 Last Admin: 07/15/18 08:33 Dose: 20 mg Folic Acid (Folate) 1 mg PO DAILY [facility] Stop: 09/12/18 08:59 Last Admin: 07/15/18 08:33 Dose: 1 mg Glucagon (Glucagen) 1 mg IM PRN PRN PRN Reason: Blood Glucose less than 70 Stop: 09/11/18 04:10 Piperacillin Sod/Tazobactam (Sod 2.25 gm/ Sodium Chloride) 50 mls @ 100 mls/hr IV Q6H [facility] Stop: 09/11/18 05:59 Last Admin: 07/15/18 11:17 Dose: 100 mls/hr Dextrose/Sodium Chloride (D5-0.45ns) 1,000 mls @ 50 mls/hr IV .Q20H [facility] Stop: 09/11/18 02:29 Last Admin: 07/14/18 23:19 Dose: 50 mls/hr Insulin Aspart (Novolog Insulin Sliding Scale) 0 units SUBQ Q6HR [facility]; Protocol Stop: 09/11/18 05:59 Last Admin: 07/15/18 12:16 Dose: 4 units Lactobacillus Rhamnosus (Culturelle 15b) 1 each PO DAILY [facility] Stop: 09/13/18 13:59 Levothyroxine Sodium (Synthroid) 0.025 mg PO QDAC [facility] Stop: 09/12/18 07:29 Last Admin: 07/15/18 06:34 Dose: 0.025 mg Miscellaneous (Vancomycin Iv Per Pharmacy) 1 ea [facility] PRN PRN PRN Reason: PROTOCOL Stop: 09/10/18 23:40 Miscellaneous (Probiotic Screen) 1 ea MC PRN PRN PRN Reason: PROTOCOL Stop: 09/13/18 11:44 Oxcarbazepine (Trileptal) 600 mg PO BID [facility] Stop: 09/11/18 16:59 Last Admin: 07/15/18 08:34 Dose: 600 mg Risperidone (Risperdal) 2 mg PO HS [facility] Stop: 09/11/18 20:59 Last Admin: 09/04/18 21:07 Dose: 2 mg Senna (Senna) 17.2 mg PO BID [facility] Stop: 09/11/18 16:59 Last Admin: 07/15/18 08:30 Dose: 17.2 mg Sevelamer Carbonate (Renvela) 800 mg PO TIDWM [facility] Stop: 09/11/18 16:59 Last Admin: 07/15/18 12:00 Dose: 800 mg Temazepam (Restoril) 15 mg PO HS PRN; Protocol PRN Reason: Insomnia Stop: 09/11/18 15:14 Vitamin B Complex/Vit C/Folic Acid (Vitamin B Complex W/Vitamin C) 1 tab PO DAILY [facility] Stop: 09/12/18 08:59 Last Admin: 07/15/18 09:00 Dose: 1 tab Zinc Sulfate (Zinc Sulfate) 220 mg PO DAILY [facility] Stop: 09/12/18 08:59 Last Admin: 07/15/18 09:00 Dose: 220 mg General: Alert, Mild distress HEENT: Atraumatic, EOMI Neck: Supple, +2 carotid pulse wo bruit Cardiovascular: Regular rate, Normal S1, Normal S2 Lungs: Other (scattered rales) Abdomen: Bowel sounds, Soft Extremities: Edema, Other (mild) Neurological: Sensation intact Skin: no Rash Psych/Mental Status: Mood NL Assessment/Plan - Assessment Assessment: ESRD on HD Hypothyroid Parkinson Ds. Fnc Quad Hep B,C GERD Left Calf ulcer Sacral Decub ulcer Cholelithiasis B/L HAP w/ effusions - Plan Plan: Lab - Result Diagrams 07/14/18 05:00 07/14/18 05:00 Current Medications Acetaminophen (Tylenol) 650 mg PO Q6H PRN PRN Reason: Pain or Fever >101 Stop: 09/11/18 15:14 Acetaminophen/Hydrocodone Bitart ([place] 5mg/325mg) 1 tab PO Q6H PRN PRN Reason: Pain (Severe) Stop: 09/11/18 15:14 Albuterol/Ipratropium (Duoneb Neb) 3 ml HHN Q4HRT PRN PRN Reason: Shortness of Breath or Wheeze Stop: 09/11/18 15:14 Ascorbic Acid (Vitamin C) 500 mg PO DAILY [facility] Stop: 09/12/18 08:59 Last Admin: 07/14/18 08:27 Dose: 500 mg Atorvastatin Calcium (Lipitor) 20 mg PO HS [facility] Stop: 09/11/18 20:59 Last Admin: 07/13/18 21:05 Dose: 20 mg Dextrose (D50w) 50 ml IVP PRN PRN PRN Reason: Blood Glucose less than 70 Stop: 09/11/18 04:10 Dextrose (Glutose 40%) 18.75 gm PO PRN PRN PRN Reason: Blood Glucose less than 70 Stop: 09/11/18 04:10 Docusate Sodium (Colace) 100 mg PO BID [facility] Stop: 09/11/18 16:59 Last Admin: 07/14/18 08:27 Dose: 100 mg Famotidine (Pepcid) 20 mg PO DAILY [facility] Stop: 09/12/18 08:59 Last Admin: 07/14/18 08:27 Dose: 20 mg Folic Acid (Folate) 1 mg PO DAILY [facility] Stop: 09/12/18 08:59 Last Admin: 07/14/18 08:27 Dose: 1 mg Glucagon (Glucagen) 1 mg IM PRN PRN PRN Reason: Blood Glucose less than 70 Stop: 09/11/18 04:10 Piperacillin Sod/Tazobactam (Sod 2.25 gm/ Sodium Chloride) 50 mls @ 100 mls/hr IV Q6H [facility] Stop: 09/11/18 05:59 Last Admin: 07/14/18 06:05 Dose: Not Given Dextrose/Sodium Chloride (D5-0.45ns) 1,000 mls @ 50 mls/hr IV .Q20H [facility] Stop: 09/11/18 02:29 Last Admin: 07/13/18 04:03 Dose: 50 mls/hr Insulin Aspart (Novolog Insulin Sliding Scale) 0 units SUBQ Q6HR [facility]; Protocol Stop: 09/11/18 05:59 Last Admin: 07/14/18 06:05 Dose: Not Given Levothyroxine Sodium (Synthroid) 0.025 mg PO QDAC [facility] Stop: 09/12/18 07:29 Last Admin: 07/14/18 06:35 Dose: 0.025 mg Miscellaneous (Vancomycin Iv Per Pharmacy) 1 ea MC PRN PRN PRN Reason: PROTOCOL Stop: 09/10/18 23:40 Oxcarbazepine (Trileptal) 600 mg PO BID [facility] Stop: 09/11/18 16:59 Last Admin: 07/14/18 08:27 Dose: 600 mg Risperidone (Risperdal) 2 mg PO HS [facility] Stop: 09/11/18 20:59 Last Admin: 07/13/18 21:05 Dose: 2 mg Senna (Senna) 17.2 mg PO BID [facility] Stop: 09/11/18 16:59 Last Admin: 07/14/18 08:27 Dose: 17.2 mg Sevelamer Carbonate (Renvela) 800 mg PO TIDWM [facility] Stop: 09/11/18 16:59 Last Admin: 07/14/18 08:27 Dose: 800 mg Temazepam (Restoril) 15 mg PO HS PRN; Protocol PRN Reason: Insomnia Stop: 09/11/18 15:14 Vitamin B Complex/Vit C/Folic Acid (Vitamin B Complex W/Vitamin C) 1 tab PO DAILY [facility] Stop: 09/12/18 08:59 Last Admin: 07/14/18 08:27 Dose: 1 tab Zinc Sulfate (Zinc Sulfate) 220 mg PO DAILY [facility] Stop: 09/12/18 08:59 Last Admin: 07/14/18 08:27 Dose: 220 mg Lab - Result Diagrams 07/14/18 05:00 07/14/18 05:00 scheduled for HD tomorrow Cr. more elevated w/ peripheral edema continue wound care Nutritional Asmnt/Malnutr-PDOC - Dietary Evaluation Malnutrition Findings (Please click <Entered> for more info): Nutritional Asmnt/Malnutrition Start: 07/13/18 13: 54 Text: Status: Complete Freq: Protocol: Document 07/13/18 13:56 ALDAIR (Rec: 07/13/18 14:10 ALDAIR NASH- [id number]) Nutritional Asmnt/Malnutrition Patient General Information Nutritional Screening Consult Diagnosis ESRD, anasarca Pertinent Medical Hx/Surgical Hx Seizure, hep C, diabetes, CAD, HTN, CVA, quadreplegia, Parkinsons, ESRD Subjective Information Consult received for "Diabetic ". Per nursing notes, patient receives hemodialysis MWF and patient is non-verbal. Patient with 2+ pitting edema. Current Diet Order/ Nutrition Support Renal diet Patient / S.O Not Indicated Pertinent Medications D50W, D5-0.45NS @50 ml/hr, Glucagon, Novolog Pertinent Labs (07/13) Na 134, BUN 48, Cr 2.9, glucose 41-137, Ca 8.2, BNP 515, albumin 2 Nutritional Hx/Data Height 1.73 m Height (Calculated Centimeters) 172.7 Current Weight (lbs) 113.852 kg Weight (Calculated Kilograms) 113.9 Weight (Calculated Grams) 129037.7 [place] Body Weight 140 % [place] Body Weight 179 Body Mass Index (BMI) 38.1 Recent Weight Change No Weight Status Morbidly Obese GI Symptoms GI Symptoms None Last BM 9/3 x 1 Difficult in: Chewing Food Allergies No Cultural/Ethnic/Mandaeism Belief none indicated Usual diet at home unknown Skin Integrity/Comment: Arian 10, ulceration on sacrum, left lower leg, abrasion on L heel, scar on right leg. Current %PO Good (75-100%) Estimated Nutritional Goals BEE in Kcals: Adj wt of IBW Calories/Kcals/Kg 27-32 kcal/kg (using 76.2kg ADj wt) Kcals Calculated ~3916-1884 kcal/day Protein g/k.2-1.5 gm/kg using Adj wt Protein Calculated ~90-115 gm/day Fluid: ml Per MD due to HD Nutritional Problem 2. Problem Problem Altered nutrition related lab values related to Etiology episodes of hypoglycemia, electrolyte imbalance aeb Signs/Symptoms: Na 134, glucose 41-137, Ca 8.2 1. Problem Problem Increased nutrient needs related to Etiology hypermetabolic state, impaired skin integrity aeb Signs/Symptoms: Pt on Hemodialysis and with multiple ulcerations Intervention/Recommendation Comments 1. Continue Renal diet as tolerated by patient. No need for DM restriction at this time due to hypoglycemia. 2. Consider fluid restriction due to HD, hyponatremia and edema. 3. Consider adding Prosource 1 packet with each meal for an additional 45gm protein. Expected Outcomes/Goals Expected Outcomes/Goals Oral intake >75% of meals, weight stable or trend toward ideal body weight, nutrition related labs WNL
[2018-07-15] MEDS: Venelex 60gm Tube TP SCH (14:00)
--- NOTE | 2018-07-15 14:26 | Cardiology ---
07/14/2018 PATIENT OF: Dr. Parkinson. M-MODE ECHOCARDIOGRAM: Mitral valve, anterior leaflet of mitral valve shows normal excursion, EF velocity. Posterior leaflet of mitral valve shows normal excursion. Left ventricular posterior wall shows increased thickness, normal excursion. Interventricular septum shows increased thickness, normal excursion, hypertrophy of the left ventricle, ejection fraction 67%. Left atrium normal. Aortic root shows normal dimension, normal excursion of aortic leaflets. CONCLUSION: Hypertrophy of the left ventricle, ejection fraction 67%. 2D ECHO: Long axis view showed normal sized left ventricle with hypertrophy of the left ventricle. Left atrium normal. Right ventricular cavity, right atrium normal. No pericardial effusion. CONCLUSION: Hypertrophy of the left ventricle, ejection fraction 67%. Doppler study showed trace mitral regurgitation, trace tricuspid regurgitation. CONCLUSION: Hypertrophy of the left ventricle, trace mitral regurgitation, trace tricuspid regurgitation, ejection fraction 67%. JOB# [id number]
--- NOTE | 2018-07-15 15:48 | General Progress Note ---
Subjective - Review of Systems Events since last encounter: awake and comfortable Objective - Results Result Diagrams: 07/14/18 05:00 07/14/18 05:00 Recent Labs: Laboratory Last Values WBC 6.8 Th/cmm (4.8-10.8) 07/14/18 05:00 RBC 3.64 Mil/cmm (3.80-5.10) L 07/14/18 05:00 Hgb 10.7 gm/dL (12-16) L 07/14/18 05:00 Hct 32.0 % (41.0-60) L 07/14/18 05:00 MCV 88.0 fl (81-100) 07/14/18 05:00 MCH 29.4 pg (27.0-31.0) 07/14/18 05:00 MCHC Differential 33.4 pg (28.0-36.0) 07/14/18 05:00 RDW 17.3 % (11.5-20.0) 07/14/18 05:00 Plt Count 127 Th/cmm (150-400) L 07/14/18 05:00 MPV 8.0 fl 07/14/18 05:00 Add Manual Diff YES 07/14/18 05:00 Neutrophils % 65.5 % (40.0-80.0) 07/13/18 04:00 Band Neutrophils % 2 % (0-10) 07/14/18 05:00 Lymphocytes % 23.8 % (20.0-50.0) 07/13/18 04:00 Monocytes % 9.4 % (2.0-10.0) 07/13/18 04:00 Eosinophils % 1.3 % (0.0-5.0) 07/13/18 04:00 Basophils % 0.0 % (0.0-2.0) 07/13/18 04:00 Neutrophils (Manual) 62 % (40-80) 07/14/18 05:00 Lymphocytes 26 % (20-50) 07/14/18 05:00 Monocytes 10 % (2-10) 07/14/18 05:00 Eosinophils 0 % (0-5) 07/14/18 05:00 Basophils 0 % (0-3) 07/14/18 05:00 Sodium 132 mEq/L (136-145) L 07/14/18 05:00 Potassium 4.6 mEq/L (3.5-5.1) 07/14/18 05:00 Chloride 100 mEq/L (98-107) 07/14/18 05:00 Carbon Dioxide 23.4 mEq/L (21.0-31.0) 07/14/18 05:00 Anion Gap 13.2 (7.0-16.0) 07/14/18 05:00 BUN 53 mg/dL (7-25) H 07/14/18 05:00 Creatinine 3.2 mg/dL (0.6-1.2) H 07/14/18 05:00 Est GFR ( Amer) 19.8 ml/min (>90) 07/14/18 05:00 Est GFR (Non-Af Amer) 16.4 ml/min 07/14/18 05:00 BUN/Creatinine Ratio 16.6 07/14/18 05:00 Glucose 163 mg/dL (70-105) H 07/14/18 05:00 POC Glucose 208 MG/DL (70 - 105) H 07/15/18 11:28 Whole Bld Lactic Acid 1.29 mmol/L (0.60-1.99) 07/12/18 20:50 Calcium 8.4 mg/dL (8.6-10.3) L 07/14/18 05:00 Total Bilirubin 0.3 mg/dL (0.3-1.0) 07/14/18 05:00 AST 14 U/L (13-39) 07/14/18 05:00 ALT 5 U/L (7-52) L 07/14/18 05:00 Alkaline Phosphatase 113 U/L (34-104) H 07/14/18 05:00 Creatine Kinase 20 U/L (30-223) L 07/12/18 20:50 Troponin I 0.49 ng/mL (0.01-0.05) H* 07/13/18 15:20 B-Natriuretic Peptide 515.0 pg/mL (5.0-100.0) H 07/13/18 04:00 Total Protein 4.9 gm/dL (6.0-8.3) L 07/14/18 05:00 Albumin 1.8 gm/dL (3.7-5.3) L 07/14/18 05:00 Globulin 3.1 gm/dL 07/14/18 05:00 Albumin/Globulin Ratio 0.6 (1.0-1.8) L 07/14/18 05:00 Triglycerides 53 mg/dL (<150) 07/13/18 04:00 Cholesterol 41 mg/dL (<200) 07/13/18 04:00 LDL Cholesterol Direct 11 mg/dL (75-193) L 07/13/18 04:00 HDL Cholesterol 24 mg/dL (23-92) 07/13/18 04:00 TSH 1.21 uIU/ml (0.34-5.60) 07/13/18 04:00 Urine Source [place] 07/12/18 20:50 Urine Color YELLOW 07/12/18 20:50 Urine Clarity CLOUDY (CLEAR) H 07/12/18 20:50 Urine pH 8.5 (4.6 - 8.0) 07/12/18 20:50 Ur Specific [place] 1.015 (1.005-1.030) 07/12/18 20:50 Urine Protein 100 mg/dL (NEGATIVE) H 07/12/18 20:50 Urine Glucose (UA) NEGATIVE mg/dL (NEGATIVE) 07/12/18 20:50 Urine Ketones NEGATIVE mg/dL (NEGATIVE) 07/12/18 20:50 Urine Blood TRACE (NEGATIVE) 07/12/18 20:50 Urine Nitrate NEGATIVE (NEGATIVE) 07/12/18 20:50 Urine Bilirubin NEGATIVE (NEGATIVE) 07/12/18 20:50 Urine Urobilinogen 0.2 E.U./dL (0.2 - 1.0) 07/12/18 20:50 Ur Leukocyte Esterase LARGE (NEGATIVE) H 07/12/18 20:50 Urine RBC 2-5 /hpf (0-5) 07/12/18 20:50 Urine WBC >100 /hpf (0-5) H 07/12/18 20:50 Ur Epithelial Cells MODERATE /lpf (FEW) 07/12/18 20:50 Urine Bacteria MANY /hpf (NONE SEEN) H 07/12/18 20:50 Random Vancomycin 20.0 ug/mL (5.0-40.0) 07/15/18 10:15 - Physical Exam Vitals and I&O: Vital Signs Temp 96.9 F 07/15/18 11:57 Pulse 99 07/15/18 11:57 Resp 18 07/15/18 11:57 BP 152/59 07/15/18 11:57 Pulse Ox 100 07/15/18 11:57 Intake & Output 07/14/18 07/15/18 07/15/18 18:59 06:59 18:59 Intake Total 350 50 50 Output Total 25 50 Balance 325 0 50 Weight (lbs) 113.852 kg 113.852 kg Intake: Intake, IV Amount 350 50 50 Piperacillin Sodium/ 100 50 50 Tazobact 2.25 gm In Sodium Chloride 0.9% 50 ml @ 100 mls/hr IV Q6H [facility] [place] Rx#:[id number] Vancomycin HCl 1 gm In 250 Sodium Chloride 0.9% 250 ml @ 165 mls/hr IV Q1H [facility] [place] Rx#:[id number] Output: Urine 25 50 Other: # Bowel Movements 1 1 Stool Characteristics Formed Formed Brown Brown Weight Source Estimated Bedscale Active Medications: Current Medications Acetaminophen (Tylenol) 650 mg PO Q6H PRN PRN Reason: Pain or Fever >101 Stop: 09/11/18 15:14 Acetaminophen/Hydrocodone Bitart ([place] 5mg/325mg) 1 tab PO Q6H PRN PRN Reason: Pain (Severe) Stop: 09/11/18 15:14 Albuterol/Ipratropium (Duoneb Neb) 3 ml HHN Q4HRT PRN PRN Reason: Shortness of Breath or Wheeze Stop: 09/11/18 15:14 Ascorbic Acid (Vitamin C) 500 mg PO DAILY [facility] [place] Stop: 09/12/18 08:59 Last Admin: 07/15/18 08:33 Dose: 500 mg Atorvastatin Calcium (Lipitor) 20 mg PO HS [facility] [place] Stop: 09/11/18 20:59 Last Admin: 07/14/18 21:07 Dose: 20 mg [place] Oil/[place] Balsam/Trypsin (Venelex) 1 appl TP DAILY [facility] [place] Stop: 09/13/18 08:59 Dextrose (D50w) 50 ml IVP PRN PRN PRN Reason: Blood Glucose less than 70 Stop: 09/11/18 04:10 Dextrose (Glutose 40%) 18.75 gm PO PRN PRN PRN Reason: Blood Glucose less than 70 Stop: 09/11/18 04:10 Docusate Sodium (Colace) 100 mg PO BID [facility] [place] Stop: 09/11/18 16:59 Last Admin: 07/15/18 08:35 Dose: 100 mg Famotidine (Pepcid) 20 mg PO DAILY [facility] Stop: 09/12/18 08:59 Last Admin: 07/15/18 08:33 Dose: 20 mg Folic Acid (Folate) 1 mg PO DAILY [facility] Stop: 09/12/18 08:59 Last Admin: 07/15/18 08:33 Dose: 1 mg Glucagon (Glucagen) 1 mg IM PRN PRN PRN Reason: Blood Glucose less than 70 Stop: 09/11/18 04:10 Piperacillin Sod/Tazobactam (Sod 2.25 gm/ Sodium Chloride) 50 mls @ 100 mls/hr IV Q6H [facility] Stop: 09/11/18 05:59 Last Admin: 07/15/18 11:17 Dose: 100 mls/hr Dextrose/Sodium Chloride (D5-0.45ns) 1,000 mls @ 50 mls/hr IV .Q20H [facility] [place] Stop: 09/11/18 02:29 Last Admin: 07/14/18 23:19 Dose: 50 mls/hr Vancomycin HCl 1.25 gm/ Sodium (Chloride) 250 mls @ 165 mls/hr IV ONCE ONE Stop: 07/15/18 17:30 Insulin Aspart (Novolog Insulin Sliding Scale) 0 units SUBQ Q6HR [facility] [place]; Protocol Stop: 09/11/18 05:59 Last Admin: 07/15/18 12:16 Dose: 4 units Lactobacillus Rhamnosus (Culturelle 15b) 1 each PO DAILY [facility] [place] Stop: 09/13/18 13:59 Levothyroxine Sodium (Synthroid) 0.025 mg PO QDAC [facility] Stop: 09/12/18 07:29 Last Admin: 07/15/18 06:34 Dose: 0.025 mg Miscellaneous (Vancomycin Iv Per Pharmacy) 1 ea MC PRN PRN PRN Reason: PROTOCOL Stop: 09/10/18 23:40 Miscellaneous (Probiotic Screen) 1 ea MC PRN PRN PRN Reason: PROTOCOL Stop: 09/13/18 11:44 Oxcarbazepine (Trileptal) 600 mg PO BID [facility] [place] Stop: 09/11/18 16:59 Last Admin: 07/15/18 08:34 Dose: 600 mg Risperidone (Risperdal) 2 mg PO HS [facility] [place] Stop: 09/11/18 20:59 Last Admin: 07/14/18 21:07 Dose: 2 mg Senna (Senna) 17.2 mg PO BID [facility] Stop: 09/11/18 16:59 Last Admin: 07/15/18 08:30 Dose: 17.2 mg Sevelamer Carbonate (Renvela) 800 mg PO TIDWM [facility] Stop: 09/11/18 16:59 Last Admin: 07/15/18 12:00 Dose: 800 mg Temazepam (Restoril) 15 mg PO HS PRN; Protocol PRN Reason: Insomnia Stop: 09/11/18 15:14 Vitamin B Complex/Vit C/Folic Acid (Vitamin B Complex W/Vitamin C) 1 tab PO DAILY [facility] Stop: 09/12/18 08:59 Last Admin: 07/15/18 09:00 Dose: 1 tab Zinc Sulfate (Zinc Sulfate) 220 mg PO DAILY [facility] Stop: 09/12/18 08:59 Last Admin: 07/15/18 09:00 Dose: 220 mg General: Alert, Mild distress HEENT: Atraumatic, EOMI Neck: Supple, +2 carotid pulse wo bruit Cardiovascular: Regular rate, Normal S1, Normal S2 Lungs: Other (scattered rales) Abdomen: Bowel sounds, Soft Extremities: Edema, Other (mild) Neurological: Sensation intact Skin: no Rash Psych/Mental Status: Mood NL Nutritional Asmnt/Malnutr-PDOC - Dietary Evaluation Malnutrition Findings (Please click <Entered> for more info): Nutritional Asmnt/Malnutrition Start: 07/13/18 13: 54 Text: Status: Complete Freq: Protocol: Document 07/13/18 13:56 ALDAIR (Rec: 07/13/18 14:10 [id number] NASH- FNS1) Nutritional Asmnt/Malnutrition Patient General Information Nutritional Screening Consult Diagnosis ESRD, anasarca Pertinent Medical Hx/Surgical Hx Seizure, hep C, diabetes, CAD, HTN, CVA, quadreplegia, Parkinsons, ESRD Subjective Information Consult received for "Diabetic ". Per nursing notes, patient receives hemodialysis MWF and patient is non-verbal. Patient with 2+ pitting edema. Current Diet Order/ Nutrition Support Renal diet Patient / S.O Not Indicated Pertinent Medications D50W, D5-0.45NS @50 ml/hr, Glucagon, Novolog Pertinent Labs (07/13) Na 134, BUN 48, Cr 2.9, glucose 41-137, Ca 8.2, BNP 515, albumin 2 Nutritional Hx/Data Height 1.73 m Height (Calculated Centimeters) 172.7 Current Weight (lbs) 113.852 kg Weight (Calculated Kilograms) 113.9 Weight (Calculated Grams) 757798.7 [place] Body Weight 140 % [place] Body Weight 179 Body Mass Index (BMI) 38.1 Recent Weight Change No Weight Status Morbidly Obese GI Symptoms GI Symptoms None Last BM 07/13 x 1 Difficult in: Chewing Food Allergies No Cultural/Ethnic/Orthodoxy Belief none indicated Usual diet at home unknown Skin Integrity/Comment: Arian 10, ulceration on sacrum, left lower leg, abrasion on L heel, scar on right leg. Current %PO Good (75-100%) Estimated Nutritional Goals BEE in Kcals: Adj wt of IBW Calories/Kcals/Kg 27-32 kcal/kg (using 76.2kg ADj wt) Kcals Calculated ~2461-9597 kcal/day Protein g/k.2-1.5 gm/kg using Adj wt Protein Calculated ~90-115 gm/day Fluid: ml Per MD due to HD Nutritional Problem 2. Problem Problem Altered nutrition related lab values related to Etiology episodes of hypoglycemia, electrolyte imbalance aeb Signs/Symptoms: Na 134, glucose 41-137, Ca 8.2 1. Problem Problem Increased nutrient needs related to Etiology hypermetabolic state, impaired skin integrity aeb Signs/Symptoms: Pt on Hemodialysis and with multiple ulcerations Intervention/Recommendation Comments 1. Continue Renal diet as tolerated by patient. No need for DM restriction at this time due to hypoglycemia. 2. Consider fluid restriction due to HD, hyponatremia and edema. 3. Consider adding Prosource 1 packet with each meal for an additional 45gm protein. Expected Outcomes/Goals Expected Outcomes/Goals Oral intake >75% of meals, weight stable or trend toward ideal body weight, nutrition related labs WNL
--- NOTE | 2018-07-15 18:08 | Infectious Disease Prog Note ---
Infectious Disease Subjective - Review of Systems Service Date: 07/15/18 Subjective: There is no new change, no fever./ Infectious Disease Objective - Results Result Diagrams: 07/18/18 09:02 07/18/18 05:20 Recent Labs: Laboratory Last Values WBC 6.8 Th/cmm (4.8-10.8) 07/14/18 05:00 RBC 3.64 Mil/cmm (3.80-5.10) L 07/14/18 05:00 Hgb 10.7 gm/dL (12-16) L 07/14/18 05:00 Hct 32.0 % (41.0-60) L 07/14/18 05:00 MCV 88.0 fl (81-100) 07/14/18 05:00 MCH 29.4 pg (27.0-31.0) 07/14/18 05:00 MCHC Differential 33.4 pg (28.0-36.0) 07/14/18 05:00 RDW 17.3 % (11.5-20.0) 07/14/18 05:00 Plt Count 127 Th/cmm (150-400) L 07/14/18 05:00 MPV 8.0 fl 07/14/18 05:00 Add Manual Diff YES 07/14/18 05:00 Neutrophils % 65.5 % (40.0-80.0) 07/13/18 04:00 Band Neutrophils % 2 % (0-10) 07/14/18 05:00 Lymphocytes % 23.8 % (20.0-50.0) 07/13/18 04:00 Monocytes % 9.4 % (2.0-10.0) 07/13/18 04:00 Eosinophils % 1.3 % (0.0-5.0) 07/13/18 04:00 Basophils % 0.0 % (0.0-2.0) 07/13/18 04:00 Neutrophils (Manual) 62 % (40-80) 07/14/18 05:00 Lymphocytes 26 % (20-50) 07/14/18 05:00 Monocytes 10 % (2-10) 07/14/18 05:00 Eosinophils 0 % (0-5) 07/14/18 05:00 Basophils 0 % (0-3) 07/14/18 05:00 Sodium 132 mEq/L (136-145) L 07/14/18 05:00 Potassium 4.6 mEq/L (3.5-5.1) 07/14/18 05:00 Chloride 100 mEq/L (98-107) 07/14/18 05:00 Carbon Dioxide 23.4 mEq/L (21.0-31.0) 07/14/18 05:00 Anion Gap 13.2 (7.0-16.0) 07/14/18 05:00 BUN 53 mg/dL (7-25) H 07/14/18 05:00 Creatinine 3.2 mg/dL (0.6-1.2) H 07/14/18 05:00 Est GFR ( Amer) 19.8 ml/min (>90) 07/14/18 05:00 Est GFR (Non-Af Amer) 16.4 ml/min 07/14/18 05:00 BUN/Creatinine Ratio 16.6 07/14/18 05:00 Glucose 163 mg/dL (70-105) H 07/14/18 05:00 POC Glucose 118 MG/DL (70 - 105) H 07/15/18 17:58 Whole Bld Lactic Acid 1.29 mmol/L (0.60-1.99) 07/12/18 20:50 Calcium 8.4 mg/dL (8.6-10.3) L 07/14/18 05:00 Total Bilirubin 0.3 mg/dL (0.3-1.0) 07/14/18 05:00 AST 14 U/L (13-39) 07/14/18 05:00 ALT 5 U/L (7-52) L 07/14/18 05:00 Alkaline Phosphatase 113 U/L (34-104) H 07/14/18 05:00 Creatine Kinase 20 U/L (30-223) L 07/12/18 20:50 Troponin I 0.49 ng/mL (0.01-0.05) H* 07/13/18 15:20 B-Natriuretic Peptide 515.0 pg/mL (5.0-100.0) H 07/13/18 04:00 Total Protein 4.9 gm/dL (6.0-8.3) L 07/14/18 05:00 Albumin 1.8 gm/dL (3.7-5.3) L 07/14/18 05:00 Globulin 3.1 gm/dL 07/14/18 05:00 Albumin/Globulin Ratio 0.6 (1.0-1.8) L 07/14/18 05:00 Triglycerides 53 mg/dL (<150) 07/13/18 04:00 Cholesterol 41 mg/dL (<200) 07/13/18 04:00 LDL Cholesterol Direct 11 mg/dL (75-193) L 07/13/18 04:00 HDL Cholesterol 24 mg/dL (23-92) 07/13/18 04:00 TSH 1.21 uIU/ml (0.34-5.60) 07/13/18 04:00 Urine Source [place] 07/12/18 20:50 Urine Color YELLOW 07/12/18 20:50 Urine Clarity CLOUDY (CLEAR) H 07/12/18 20:50 Urine pH 8.5 (4.6 - 8.0) 07/12/18 20:50 Ur Specific [place] 1.015 (1.005-1.030) 07/12/18 20:50 Urine Protein 100 mg/dL (NEGATIVE) H 07/12/18 20:50 Urine Glucose (UA) NEGATIVE mg/dL (NEGATIVE) 07/12/18 20:50 Urine Ketones NEGATIVE mg/dL (NEGATIVE) 07/12/18 20:50 Urine Blood TRACE (NEGATIVE) 07/12/18 20:50 Urine Nitrate NEGATIVE (NEGATIVE) 07/12/18 20:50 Urine Bilirubin NEGATIVE (NEGATIVE) 07/12/18 20:50 Urine Urobilinogen 0.2 E.U./dL (0.2 - 1.0) 07/12/18 20:50 Ur Leukocyte Esterase LARGE (NEGATIVE) H 07/12/18 20:50 Urine RBC 2-5 /hpf (0-5) 07/12/18 20:50 Urine WBC >100 /hpf (0-5) H 07/12/18 20:50 Ur Epithelial Cells MODERATE /lpf (FEW) 07/12/18 20:50 Urine Bacteria MANY /hpf (NONE SEEN) H 07/12/18 20:50 Random Vancomycin 20.0 ug/mL (5.0-40.0) 07/15/18 10:15 - Physical Exam Vitals and I&O: Vital Signs Temp 97.2 F 07/15/18 16:06 Pulse 98 07/15/18 16:06 Resp 17 07/15/18 16:06 BP 134/60 07/15/18 16:06 Pulse Ox 98 07/15/18 16:06 Intake & Output 07/14/18 07/15/18 07/15/18 18:59 06:59 18:59 Intake Total 350 50 100 Output Total 25 50 Balance 325 0 100 Weight (lbs) 113.852 kg 113.852 kg Intake: Intake, IV Amount 350 50 100 Piperacillin Sodium/ 100 50 100 Tazobact 2.25 gm In Sodium Chloride 0.9% 50 ml @ 100 mls/hr IV Q6H [facility] Rx#:[id number] Vancomycin HCl 1 gm In 250 Sodium Chloride 0.9% 250 ml @ 165 mls/hr IV Q1H [facility] Rx#:[id number] Output: Urine 25 50 Other: # Bowel Movements 1 1 Stool Characteristics Formed Formed Brown Brown Weight Source Estimated Bedscale Active Medications: Current Medications Acetaminophen (Tylenol) 650 mg PO Q6H PRN PRN Reason: Pain or Fever >101 Stop: 09/11/18 15:14 Acetaminophen/Hydrocodone Bitart ([place] 5mg/325mg) 1 tab PO Q6H PRN PRN Reason: Pain (Severe) Stop: 09/11/18 15:14 Albuterol/Ipratropium (Duoneb Neb) 3 ml HHN Q4HRT PRN PRN Reason: Shortness of Breath or Wheeze Stop: 09/11/18 15:14 Ascorbic Acid (Vitamin C) 500 mg PO DAILY [facility] Stop: 09/12/18 08:59 Last Admin: 07/15/18 08:33 Dose: 500 mg Atorvastatin Calcium (Lipitor) 20 mg PO HS [facility] Stop: 09/11/18 20:59 Last Admin: 07/14/18 21:07 Dose: 20 mg [place] Oil/[place] Balsam/Trypsin (Venelex) 1 appl TP DAILY [facility] Stop: 09/13/18 08:59 Last Admin: 07/15/18 14:00 Dose: 1 appl Dextrose (D50w) 50 ml IVP PRN PRN PRN Reason: Blood Glucose less than 70 Stop: 09/11/18 04:10 Dextrose (Glutose 40%) 18.75 gm PO PRN PRN PRN Reason: Blood Glucose less than 70 Stop: 09/11/18 04:10 Docusate Sodium (Colace) 100 mg PO BID [facility] Stop: 09/11/18 16:59 Last Admin: 07/15/18 08:35 Dose: 100 mg Famotidine (Pepcid) 20 mg PO DAILY [facility] Stop: 09/12/18 08:59 Last Admin: 07/15/18 08:33 Dose: 20 mg Folic Acid (Folate) 1 mg PO DAILY [facility] Stop: 09/12/18 08:59 Last Admin: 07/15/18 08:33 Dose: 1 mg Glucagon (Glucagen) 1 mg IM PRN PRN PRN Reason: Blood Glucose less than 70 Stop: 09/11/18 04:10 Piperacillin Sod/Tazobactam (Sod 2.25 gm/ Sodium Chloride) 50 mls @ 100 mls/hr IV Q6H [facility] Stop: 09/11/18 05:59 Last Admin: 07/15/18 17:48 Dose: 100 mls/hr Dextrose/Sodium Chloride (D5-0.45ns) 1,000 mls @ 50 mls/hr IV .Q20H [facility] Stop: 09/11/18 02:29 Last Admin: 07/14/18 23:19 Dose: 50 mls/hr Insulin Aspart (Novolog Insulin Sliding Scale) 0 units SUBQ Q6HR [facility]; Protocol Stop: 09/11/18 05:59 Last Admin: 07/15/18 12:16 Dose: 4 units Lactobacillus Rhamnosus (Culturelle 15b) 1 each PO DAILY [facility] Stop: 09/13/18 13:59 Levothyroxine Sodium (Synthroid) 0.025 mg PO QDAC [facility] Stop: 09/12/18 07:29 Last Admin: 07/15/18 06:34 Dose: 0.025 mg Miscellaneous (Vancomycin Iv Per Pharmacy) 1 ea MC PRN PRN PRN Reason: PROTOCOL Stop: 09/10/18 23:40 Miscellaneous (Probiotic Screen) 1 ea MC PRN PRN PRN Reason: PROTOCOL Stop: 09/13/18 11:44 Oxcarbazepine (Trileptal) 600 mg PO BID [facility] Stop: 09/11/18 16:59 Last Admin: 07/15/18 17:50 Dose: 600 mg Risperidone (Risperdal) 2 mg PO HS [facility] Stop: 09/11/18 20:59 Last Admin: 07/14/18 21:07 Dose: 2 mg Senna (Senna) 17.2 mg PO BID [facility] Stop: 09/11/18 16:59 Last Admin: 07/15/18 17:49 Dose: 17.2 mg Sevelamer Carbonate (Renvela) 800 mg PO TIDWM [facility] Stop: 09/11/18 16:59 Last Admin: 07/15/18 17:49 Dose: 800 mg Temazepam (Restoril) 15 mg PO HS PRN; Protocol PRN Reason: Insomnia Stop: 09/11/18 15:14 Vitamin B Complex/Vit C/Folic Acid (Vitamin B Complex W/Vitamin C) 1 tab PO DAILY [facility] Stop: 09/12/18 08:59 Last Admin: 07/15/18 09:00 Dose: 1 tab Zinc Sulfate (Zinc Sulfate) 220 mg PO DAILY [facility] Stop: 09/12/18 08:59 Last Admin: 07/15/18 09:00 Dose: 220 mg General: no acute distress, well developed, well nourished HEENT: atraumatic, normocephalic, PERRLA Neck: supple, no thyromegaly Cardiovascular: S1S2, regular Lungs: clear to auscultation bilaterally, clear to percussion, other (decreased breath sounds.) Abdomen: soft, no tender, no distended Extremities: edema, no cyanosis, no clubbing Neurological: awake, alert, oriented Skin: other (sacral stage 4 wound. multi[l;e lower extremity wounds) Infectious Disease Assmt/Plan - Assessment Assessment: 1. UTI 2. Staph CN in blood contaminant. 3. Hypoglycemia. 4. Diabetes mellitus type 1 with episodes of hypoglycemia. 5. Hypertension. 6. Anemia of chronic disease. 7. Coronary artery disease, 8. CHF.. 9. Anasarca 10. 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 11. sacral stage 4 wound. - Plan Plan: start amikacin and dc other antibiotics. Nutritional Asmnt/Malnutr-PDOC - Dietary Evaluation Malnutrition Findings (Please click <Entered> for more info): Nutritional Asmnt/Malnutrition Start: 07/13/18 13: 54 Text: Status: Complete Freq: Protocol: Document 07/13/18 13:56 MMULHERN (Rec: 07/13/18 14:10 ALDAIR NASH- FNS1) Nutritional Asmnt/Malnutrition Patient General Information Nutritional Screening Consult Diagnosis ESRD, anasarca Pertinent Medical Hx/Surgical Hx Seizure, hep C, diabetes, CAD, HTN, CVA, quadreplegia, Parkinsons, ESRD Subjective Information Consult received for "Diabetic ". Per nursing notes, patient receives hemodialysis MWF and patient is non-verbal. Patient with 2+ pitting edema. Current Diet Order/ Nutrition Support Renal diet Patient / S.O Not Indicated Pertinent Medications D50W, D5-0.45NS @50 ml/hr, Glucagon, Novolog Pertinent Labs (07/13) Na 134, BUN 48, Cr 2.9, glucose 41-137, Ca 8.2, BNP 515, albumin 2 Nutritional Hx/Data Height 1.73 m Height (Calculated Centimeters) 172.7 Current Weight (lbs) 113.852 kg Weight (Calculated Kilograms) 113.9 Weight (Calculated Grams) 657301.7 [place] Body Weight 140 % [place] Body Weight 179 Body Mass Index (BMI) 38.1 Recent Weight Change No Weight Status Morbidly Obese GI Symptoms GI Symptoms None Last BM 07/13 x 1 Difficult in: Chewing Food Allergies No Cultural/Ethnic/Hoahaoism Belief none indicated Usual diet at home unknown Skin Integrity/Comment: Arian 10, ulceration on sacrum, left lower leg, abrasion on L heel, scar on right leg. Current %PO Good (75-100%) Estimated Nutritional Goals BEE in Kcals: Adj wt of IBW Calories/Kcals/Kg 27-32 kcal/kg (using 76.2kg ADj wt) Kcals Calculated ~2340-1328 kcal/day Protein g/k.2-1.5 gm/kg using Adj wt Protein Calculated ~90-115 gm/day Fluid: ml Per MD due to HD Nutritional Problem 2. Problem Problem Altered nutrition related lab values related to Etiology episodes of hypoglycemia, electrolyte imbalance aeb Signs/Symptoms: Na 134, glucose 41-137, Ca 8.2 1. Problem Problem Increased nutrient needs related to Etiology hypermetabolic state, impaired skin integrity aeb Signs/Symptoms: Pt on Hemodialysis and with multiple ulcerations Intervention/Recommendation Comments 1. Continue Renal diet as tolerated by patient. No need for DM restriction at this time due to hypoglycemia. 2. Consider fluid restriction due to HD, hyponatremia and edema. 3. Consider adding Prosource 1 packet with each meal for an additional 45gm protein. Expected Outcomes/Goals Expected Outcomes/Goals Oral intake >75% of meals, weight stable or trend toward ideal body weight, nutrition related labs WNL
[2018-07-15] MEDS: Lactobacillus Rhamnosus GG 15 Billion CFU CAP.SPRINK PO SCH (18:09)
[2018-07-15] MEDS ORDERED: Amikacin 250 mg/mL 2mL Vial IV ONE (20:22)
[2018-07-15] MEDS: Atorvastatin Calcium 10 MG TAB PO SCH (21:13)
[2018-07-16] MEDS: INSULIN ASPART SLIDING SCALE 100 UNITS/ML UNIT SUBQ SCH ×4 (00:17→18:06)
[2018-07-16] MEDS: D5-0.45NS 1,000 ML IV SCH ×2 (03:31→22:44)
[2018-07-16 05:36] LABS: HEMATOCRIT 30.8 % (41.0-60); HEMOGLOBIN 10.2 gm/dL (12-16); MEAN CELL VOLUME 88.6 fl (81-100); MEAN CORPUSCULAR HEMOGLOBIN 29.2 pg (27.0-31.0); MEAN PLATELET VOLUME 6.5 fl; PLATELET COUNT 82 Th/cmm (150-400); RED BLOOD COUNT 3.48 Mil/cmm (3.80-5.10); RED CELL DISTRIBUTION WIDTH 17.8 % (11.5-20.0); WHITE BLOOD COUNT 5.6 Th/cmm (4.8-10.8)
[2018-07-16 06:02] LABS: ANION GAP 11.1 (7.0-16.0); CALCIUM SERUM 8.1 mg/dL (8.6-10.3); CARBON DIOXIDE 26.3 mEq/L (21.0-31.0); CREATININE - SERUM 3.1 mg/dL (0.6-1.2); GFR AFRICAN-AMERICAN 20.5 ml/min (>90); POTASSIUM SERUM 4.4 mEq/L (3.5-5.1)
[2018-07-16] MEDS: Levothyroxine 0.025 Mg Tab PO SCH (06:39)
[2018-07-16 07:05] LABS: LYMPHOCYTE 52 % (20-50); MONOCYTE 15 % (2-10); NEUTROPHILS 33 % (40-80)
[2018-07-16 07:06] LABS: PLATELET ESTIMATE DECREASED PLATELETS (NORMAL)
[2018-07-16] MEDS: Hydrocodone/APAP 5mg/325mg Tab PO PRN ×2 (08:05→14:22)
[2018-07-16] MEDS: Lactobacillus Rhamnosus GG 15 Billion CFU CAP.SPRINK PO SCH (08:43)
[2018-07-16] MEDS: Vitamin B Complex w/Vitamin C Tab PO SCH (08:43)
[2018-07-16] MEDS: Docusate Sodium 100 mg/10 mL UD PO SCH ×2 (08:44→17:59)
[2018-07-16] MEDS: Venelex 60gm Tube TP SCH (10:35)
--- NOTE | 2018-07-16 11:46 | General Progress Note ---
Subjective - Review of Systems Events since last encounter: in no acute distress awake Objective - Results Result Diagrams: 07/16/18 04:50 07/16/18 04:50 Recent Labs: Laboratory Last Values WBC 5.6 Th/cmm (4.8-10.8) 07/16/18 04:50 RBC 3.48 Mil/cmm (3.80-5.10) L 07/16/18 04:50 Hgb 10.2 gm/dL (12-16) L 07/16/18 04:50 Hct 30.8 % (41.0-60) L 07/16/18 04:50 MCV 88.6 fl (81-100) 07/16/18 04:50 MCH 29.2 pg (27.0-31.0) 07/16/18 04:50 MCHC Differential 33.0 pg (28.0-36.0) 07/16/18 04:50 RDW 17.8 % (11.5-20.0) 07/16/18 04:50 Plt Count 82 Th/cmm (150-400) L 07/16/18 04:50 MPV 6.5 fl 07/16/18 04:50 Add Manual Diff YES 07/16/18 04:50 Neutrophils % BATH MIX OPERATOR 07/16/18 04:50 Band Neutrophils % 2 % (0-10) 07/14/18 05:00 Lymphocytes % BATH MIX OPERATOR 07/16/18 04:50 Monocytes % BATH MIX OPERATOR 07/16/18 04:50 Eosinophils % BATH MIX OPERATOR 07/16/18 04:50 Basophils % BATH MIX OPERATOR 07/16/18 04:50 Neutrophils (Manual) 33 % (40-80) L 07/16/18 04:50 Lymphocytes 52 % (20-50) H 07/16/18 04:50 Monocytes 15 % (2-10) H 07/16/18 04:50 Eosinophils 0 % (0-5) 07/14/18 05:00 Basophils 0 % (0-3) 07/14/18 05:00 Platelet Estimate DECREASED PLATELETS (NORMAL) 07/16/18 04:50 Sodium 136 mEq/L (136-145) 07/16/18 04:50 Potassium 4.4 mEq/L (3.5-5.1) 07/16/18 04:50 Chloride 103 mEq/L (98-107) 07/16/18 04:50 Carbon Dioxide 26.3 mEq/L (21.0-31.0) 07/16/18 04:50 Anion Gap 11.1 (7.0-16.0) 07/16/18 04:50 BUN 38 mg/dL (7-25) H 07/16/18 04:50 Creatinine 3.1 mg/dL (0.6-1.2) H 07/16/18 04:50 Est GFR ( Amer) 20.5 ml/min (>90) 07/16/18 04:50 Est GFR (Non-Af Amer) 17.0 ml/min 07/16/18 04:50 BUN/Creatinine Ratio 12.3 07/16/18 04:50 Glucose 107 mg/dL (70-105) H 07/16/18 04:50 POC Glucose 125 MG/DL (70 - 105) H 07/16/18 05:39 Whole Bld Lactic Acid 1.29 mmol/L (0.60-1.99) 07/12/18 20:50 Calcium 8.1 mg/dL (8.6-10.3) L 07/16/18 04:50 Total Bilirubin 0.3 mg/dL (0.3-1.0) 07/14/18 05:00 AST 14 U/L (13-39) 07/14/18 05:00 ALT 5 U/L (7-52) L 07/14/18 05:00 Alkaline Phosphatase 113 U/L (34-104) H 07/14/18 05:00 Creatine Kinase 20 U/L (30-223) L 07/12/18 20:50 Troponin I 0.49 ng/mL (0.01-0.05) H* 07/13/18 15:20 B-Natriuretic Peptide 515.0 pg/mL (5.0-100.0) H 07/13/18 04:00 Total Protein 4.9 gm/dL (6.0-8.3) L 07/14/18 05:00 Albumin 1.8 gm/dL (3.7-5.3) L 07/14/18 05:00 Globulin 3.1 gm/dL 07/14/18 05:00 Albumin/Globulin Ratio 0.6 (1.0-1.8) L 07/14/18 05:00 Triglycerides 53 mg/dL (<150) 07/13/18 04:00 Cholesterol 41 mg/dL (<200) 07/13/18 04:00 LDL Cholesterol Direct 11 mg/dL (75-193) L 07/13/18 04:00 HDL Cholesterol 24 mg/dL (23-92) 07/13/18 04:00 TSH 1.21 uIU/ml (0.34-5.60) 07/13/18 04:00 Urine Source [place] 07/12/18 20:50 Urine Color YELLOW 07/12/18 20:50 Urine Clarity CLOUDY (CLEAR) H 07/12/18 20:50 Urine pH 8.5 (4.6 - 8.0) 07/12/18 20:50 Ur Specific [place] 1.015 (1.005-1.030) 07/12/18 20:50 Urine Protein 100 mg/dL (NEGATIVE) H 07/12/18 20:50 Urine Glucose (UA) NEGATIVE mg/dL (NEGATIVE) 07/12/18 20:50 Urine Ketones NEGATIVE mg/dL (NEGATIVE) 07/12/18 20:50 Urine Blood TRACE (NEGATIVE) 07/12/18 20:50 Urine Nitrate NEGATIVE (NEGATIVE) 07/12/18 20:50 Urine Bilirubin NEGATIVE (NEGATIVE) 07/12/18 20:50 Urine Urobilinogen 0.2 E.U./dL (0.2 - 1.0) 07/12/18 20:50 Ur Leukocyte Esterase LARGE (NEGATIVE) H 07/12/18 20:50 Urine RBC 2-5 /hpf (0-5) 07/12/18 20:50 Urine WBC >100 /hpf (0-5) H 07/12/18 20:50 Ur Epithelial Cells MODERATE /lpf (FEW) 07/12/18 20:50 Urine Bacteria MANY /hpf (NONE SEEN) H 07/12/18 20:50 Random Vancomycin 29.7 ug/mL (5.0-40.0) 07/16/18 04:50 - Physical Exam Vitals and I&O: Vital Signs Temp 96.6 F 07/16/18 07:51 Pulse 103 07/16/18 07:51 Resp 18 07/16/18 07:51 BP 111/75 07/16/18 07:51 Pulse Ox 100 07/16/18 07:51 Intake & Output 07/15/18 07/16/18 07/16/18 18:59 06:59 18:59 Intake Total 150 1761 Output Total 300 Balance 150 1461 Weight (lbs) 106.866 kg Intake: Intake, IV Amount 150 1101 D5-0.45NS 1,000 ml @ 50 1000 mls/hr IV .Q20H [facility] Rx#: [id number] Piperacillin Sodium/ 150 Tazobact 2.25 gm In Sodium Chloride 0.9% 50 ml @ 100 mls/hr IV Q6H [facility] Rx#:[id number] Oral 310 Other 350 Output: Urine 300 Other: # Bowel Movements 1 Weight Source Bedscale Active Medications: Current Medications Acetaminophen (Tylenol) 650 mg PO Q6H PRN PRN Reason: Pain or Fever >101 Stop: 09/11/18 15:14 Acetaminophen/Hydrocodone Bitart ([place] 5mg/325mg) 1 tab PO Q6H PRN PRN Reason: Pain (Severe) Stop: 09/11/18 15:14 Last Admin: 07/16/18 08:05 Dose: 1 tab Albuterol/Ipratropium (Duoneb Neb) 3 ml HHN Q4HRT PRN PRN Reason: Shortness of Breath or Wheeze Stop: 09/11/18 15:14 Ascorbic Acid (Vitamin C) 500 mg PO DAILY [facility] Stop: 09/12/18 08:59 Last Admin: 07/16/18 08:43 Dose: 500 mg Atorvastatin Calcium (Lipitor) 20 mg PO HS [facility] Stop: 09/11/18 20:59 Last Admin: 07/15/18 21:13 Dose: 20 mg [place] Oil/[place] Balsam/Trypsin (Venelex) 1 appl TP DAILY [facility] Stop: 09/13/18 08:59 Last Admin: 07/16/18 10:35 Dose: 1 appl Dextrose (D50w) 50 ml IVP PRN PRN PRN Reason: Blood Glucose less than 70 Stop: 09/11/18 04:10 Dextrose (Glutose 40%) 18.75 gm PO PRN PRN PRN Reason: Blood Glucose less than 70 Stop: 09/11/18 04:10 Docusate Sodium (Colace) 100 mg PO BID [facility] Stop: 09/11/18 16:59 Last Admin: 07/16/18 08:44 Dose: 100 mg Famotidine (Pepcid) 20 mg PO DAILY [facility] Stop: 09/12/18 08:59 Last Admin: 07/16/18 08:43 Dose: 20 mg Folic Acid (Folate) 1 mg PO DAILY [facility] Stop: 09/12/18 08:59 Last Admin: 07/16/18 08:43 Dose: 1 mg Glucagon (Glucagen) 1 mg IM PRN PRN PRN Reason: Blood Glucose less than 70 Stop: 09/11/18 04:10 Dextrose/Sodium Chloride (D5-0.45ns) 1,000 mls @ 50 mls/hr IV .Q20H [facility] Stop: 09/11/18 02:29 Last Admin: 07/16/18 03:31 Dose: 50 mls/hr Amikacin Sulfate 500 mg/ (Dextrose) 102 mls @ 100 mls/hr IV ONCE ONE Stop: 07/16/18 15:01 Insulin Aspart (Novolog Insulin Sliding Scale) 0 units SUBQ Q6HR [facility]; Protocol Stop: 09/11/18 05:59 Last Admin: 07/16/18 05:45 Dose: Not Given Lactobacillus Rhamnosus (Culturelle 15b) 1 each PO DAILY [facility] Stop: 09/13/18 13:59 Last Admin: 07/16/18 08:43 Dose: 1 each Levothyroxine Sodium (Synthroid) 0.025 mg PO QDAC [facility] Stop: 09/12/18 07:29 Last Admin: 07/16/18 06:39 Dose: 0.025 mg Miscellaneous (Probiotic Screen) 1 ea PRN PRN PRN Reason: PROTOCOL Stop: 09/13/18 11:44 Miscellaneous (Amikacin Iv Per Pharmacy) 1 ea PRN PRN PRN Reason: PROTOCOL Stop: 09/13/18 18:08 Oxcarbazepine (Trileptal) 600 mg PO BID [facility] Stop: 09/11/18 16:59 Last Admin: 07/16/18 08:42 Dose: 600 mg Risperidone (Risperdal) 2 mg PO HS [facility] Stop: 09/11/18 20:59 Last Admin: 07/15/18 21:13 Dose: 2 mg Senna (Senna) 17.2 mg PO BID [facility] Stop: 09/11/18 16:59 Last Admin: 07/16/18 08:43 Dose: 17.2 mg Sevelamer Carbonate (Renvela) 800 mg PO TIDWM [facility] Stop: 09/11/18 16:59 Last Admin: 07/16/18 08:05 Dose: 800 mg Temazepam (Restoril) 15 mg PO HS PRN; Protocol PRN Reason: Insomnia Stop: 09/11/18 15:14 Vitamin B Complex/Vit C/Folic Acid (Vitamin B Complex W/Vitamin C) 1 tab PO DAILY [facility] Stop: 09/12/18 08:59 Last Admin: 07/16/18 08:43 Dose: 1 tab Zinc Sulfate (Zinc Sulfate) 220 mg PO DAILY [facility] Stop: 09/12/18 08:59 Last Admin: 07/16/18 08:43 Dose: 220 mg General: Alert, Mild distress HEENT: Atraumatic, EOMI Neck: Supple, +2 carotid pulse wo bruit Cardiovascular: Regular rate, Normal S1, Normal S2 Lungs: Other (scattered rales) Abdomen: Bowel sounds, Soft Extremities: Edema, Other (mild) Neurological: Sensation intact Skin: no Rash Psych/Mental Status: Mood NL Nutritional Asmnt/Malnutr-PDOC - Dietary Evaluation Malnutrition Findings (Please click <Entered> for more info): Nutritional Asmnt/Malnutrition Start: 07/13/18 13: 54 Text: Status: Complete Freq: Protocol: Document 07/13/18 13:56 ALDAIR (Rec: 07/13/18 14:10 ALDAIR NASH- [id number]) Nutritional Asmnt/Malnutrition Patient General Information Nutritional Screening Consult Diagnosis ESRD, anasarca Pertinent Medical Hx/Surgical Hx Seizure, hep C, diabetes, CAD, HTN, CVA, quadreplegia, Parkinsons, ESRD Subjective Information Consult received for "Diabetic ". Per nursing notes, patient receives hemodialysis MWF and patient is non-verbal. Patient with 2+ pitting edema. Current Diet Order/ Nutrition Support Renal diet Patient / S.O Not Indicated Pertinent Medications D50W, D5-0.45NS @50 ml/hr, Glucagon, Novolog Pertinent Labs (07/13) Na 134, BUN 48, Cr 2.9, glucose 41-137, Ca 8.2, BNP 515, albumin 2 Nutritional Hx/Data Height 1.73 m Height (Calculated Centimeters) 172.7 Current Weight (lbs) 113.852 kg Weight (Calculated Kilograms) 113.9 Weight (Calculated Grams) 459829.7 [place] Body Weight 140 % [place] Body Weight 179 Body Mass Index (BMI) 38.1 Recent Weight Change No Weight Status Morbidly Obese GI Symptoms GI Symptoms None Last BM 9/ x 1 Difficult in: Chewing Food Allergies No Cultural/Ethnic/Judaism Belief none indicated Usual diet at home unknown Skin Integrity/Comment: A[place] 10, ulceration on sacrum, left lower leg, abrasion on L heel, scar on right leg. Current %PO Good (75-100%) Estimated Nutritional Goals BEE in Kcals: Adj wt of IBW Calories/Kcals/Kg 27-32 kcal/kg (using 76.2kg ADj wt) Kcals Calculated ~4687-4905 kcal/day Protein g/k.2-1.5 gm/kg using Adj wt Protein Calculated ~90-115 gm/day Fluid: ml Per MD due to HD Nutritional Problem 2. Problem Problem Altered nutrition related lab values related to Etiology episodes of hypoglycemia, electrolyte imbalance aeb Signs/Symptoms: Na 134, glucose 41-137, Ca 8.2 1. Problem Problem Increased nutrient needs related to Etiology hypermetabolic state, impaired skin integrity aeb Signs/Symptoms: Pt on Hemodialysis and with multiple ulcerations Intervention/Recommendation Comments 1. Continue Renal diet as tolerated by patient. No need for DM restriction at this time due to hypoglycemia. 2. Consider fluid restriction due to HD, hyponatremia and edema. 3. Consider adding Prosource 1 packet with each meal for an additional 45gm protein. Expected Outcomes/Goals Expected Outcomes/Goals Oral intake >75% of meals, weight stable or trend toward ideal body weight, nutrition related labs WNL
[2018-07-16] MEDS ORDERED: Amikacin 500 mg in D5W 100mL (Q24HR) IV ONE (14:00)
--- NOTE | 2018-07-16 14:51 | General Progress Note ---
Subjective - Review of Systems Service Date: 07/16/18 Subjective: more awake, comfortable, verbal Objective - Results Result Diagrams: 07/16/18 04:50 07/16/18 04:50 Recent Labs: Laboratory Last Values WBC 5.6 Th/cmm (4.8-10.8) 07/16/18 04:50 RBC 3.48 Mil/cmm (3.80-5.10) L 07/16/18 04:50 Hgb 10.2 gm/dL (12-16) L 07/16/18 04:50 Hct 30.8 % (41.0-60) L 07/16/18 04:50 MCV 88.6 fl (81-100) 07/16/18 04:50 MCH 29.2 pg (27.0-31.0) 07/16/18 04:50 MCHC Differential 33.0 pg (28.0-36.0) 07/16/18 04:50 RDW 17.8 % (11.5-20.0) 07/16/18 04:50 Plt Count 82 Th/cmm (150-400) L 07/16/18 04:50 MPV 6.5 fl 07/16/18 04:50 Add Manual Diff YES 07/16/18 04:50 Neutrophils % ADMINISTRATIVE REPRESENTATIVE 07/16/18 04:50 Band Neutrophils % 2 % (0-10) 07/14/18 05:00 Lymphocytes % ADMINISTRATIVE REPRESENTATIVE 07/16/18 04:50 Monocytes % ADMINISTRATIVE REPRESENTATIVE 07/16/18 04:50 Eosinophils % ADMINISTRATIVE REPRESENTATIVE 07/16/18 04:50 Basophils % ADMINISTRATIVE REPRESENTATIVE 07/16/18 04:50 Neutrophils (Manual) 33 % (40-80) L 07/16/18 04:50 Lymphocytes 52 % (20-50) H 07/16/18 04:50 Monocytes 15 % (2-10) H 07/16/18 04:50 Eosinophils 0 % (0-5) 07/14/18 05:00 Basophils 0 % (0-3) 07/14/18 05:00 Platelet Estimate DECREASED PLATELETS (NORMAL) 07/16/18 04:50 Sodium 136 mEq/L (136-145) 07/16/18 04:50 Potassium 4.4 mEq/L (3.5-5.1) 07/16/18 04:50 Chloride 103 mEq/L (98-107) 07/16/18 04:50 Carbon Dioxide 26.3 mEq/L (21.0-31.0) 07/16/18 04:50 Anion Gap 11.1 (7.0-16.0) 07/16/18 04:50 BUN 38 mg/dL (7-25) H 07/16/18 04:50 Creatinine 3.1 mg/dL (0.6-1.2) H 07/16/18 04:50 Est GFR ( Amer) 20.5 ml/min (>90) 07/16/18 04:50 Est GFR (Non-Af Amer) 17.0 ml/min 07/16/18 04:50 BUN/Creatinine Ratio 12.3 07/16/18 04:50 Glucose 107 mg/dL (70-105) H 07/16/18 04:50 POC Glucose 174 MG/DL (70 - 105) H 07/16/18 12:01 Whole Bld Lactic Acid 1.29 mmol/L (0.60-1.99) 07/12/18 20:50 Calcium 8.1 mg/dL (8.6-10.3) L 07/16/18 04:50 Total Bilirubin 0.3 mg/dL (0.3-1.0) 07/14/18 05:00 AST 14 U/L (13-39) 07/14/18 05:00 ALT 5 U/L (7-52) L 07/14/18 05:00 Alkaline Phosphatase 113 U/L (34-104) H 07/14/18 05:00 Creatine Kinase 20 U/L (30-223) L 07/12/18 20:50 Troponin I 0.49 ng/mL (0.01-0.05) H* 07/13/18 15:20 B-Natriuretic Peptide 515.0 pg/mL (5.0-100.0) H 07/13/18 04:00 Total Protein 4.9 gm/dL (6.0-8.3) L 07/14/18 05:00 Albumin 1.8 gm/dL (3.7-5.3) L 07/14/18 05:00 Globulin 3.1 gm/dL 07/14/18 05:00 Albumin/Globulin Ratio 0.6 (1.0-1.8) L 07/14/18 05:00 Triglycerides 53 mg/dL (<150) 07/13/18 04:00 Cholesterol 41 mg/dL (<200) 07/13/18 04:00 LDL Cholesterol Direct 11 mg/dL (75-193) L 07/13/18 04:00 HDL Cholesterol 24 mg/dL (23-92) 07/13/18 04:00 TSH 1.21 uIU/ml (0.34-5.60) 07/13/18 04:00 Urine Source [place] 07/12/18 20:50 Urine Color YELLOW 07/12/18 20:50 Urine Clarity CLOUDY (CLEAR) H 07/12/18 20:50 Urine pH 8.5 (4.6 - 8.0) 07/12/18 20:50 Ur Specific [place] 1.015 (1.005-1.030) 07/12/18 20:50 Urine Protein 100 mg/dL (NEGATIVE) H 07/12/18 20:50 Urine Glucose (UA) NEGATIVE mg/dL (NEGATIVE) 07/12/18 20:50 Urine Ketones NEGATIVE mg/dL (NEGATIVE) 07/12/18 20:50 Urine Blood TRACE (NEGATIVE) 07/12/18 20:50 Urine Nitrate NEGATIVE (NEGATIVE) 07/12/18 20:50 Urine Bilirubin NEGATIVE (NEGATIVE) 07/12/18 20:50 Urine Urobilinogen 0.2 E.U./dL (0.2 - 1.0) 07/12/18 20:50 Ur Leukocyte Esterase LARGE (NEGATIVE) H 07/12/18 20:50 Urine RBC 2-5 /hpf (0-5) 07/12/18 20:50 Urine WBC >100 /hpf (0-5) H 07/12/18 20:50 Ur Epithelial Cells MODERATE /lpf (FEW) 07/12/18 20:50 Urine Bacteria MANY /hpf (NONE SEEN) H 07/12/18 20:50 Random Vancomycin 29.7 ug/mL (5.0-40.0) 07/16/18 04:50 - Physical Exam Vitals and I&O: Vital Signs Temp 96.9 F 07/16/18 12:04 Pulse 94 07/16/18 12:04 Resp 18 07/16/18 12:04 BP 114/59 07/16/18 12:04 Pulse Ox 100 07/16/18 12:04 Intake & Output 07/15/18 07/16/18 07/16/18 18:59 06:59 18:59 Intake Total 150 1761 Output Total 300 Balance 150 1461 Weight (lbs) 106.866 kg 106.503 kg Intake: Intake, IV Amount 150 1101 D5-0.45NS 1,000 ml @ 50 1000 mls/hr IV .Q20H [facility] Rx#: [id number] Piperacillin Sodium/ 150 Tazobact 2.25 gm In Sodium Chloride 0.9% 50 ml @ 100 mls/hr IV Q6H [facility] Rx#:[id number] Oral 310 Other 350 Output: Urine 300 Other: # Bowel Movements 1 Weight Source Bedscale Bedscale Active Medications: Current Medications Acetaminophen (Tylenol) 650 mg PO Q6H PRN PRN Reason: Pain or Fever >101 Stop: 09/11/18 15:14 Acetaminophen/Hydrocodone Bitart ([place] 5mg/325mg) 1 tab PO Q6H PRN PRN Reason: Pain (Severe) Stop: 09/11/18 15:14 Last Admin: 07/16/18 14:22 Dose: 1 tab Albuterol/Ipratropium (Duoneb Neb) 3 ml HHN Q4HRT PRN PRN Reason: Shortness of Breath or Wheeze Stop: 09/11/18 15:14 Ascorbic Acid (Vitamin C) 500 mg PO DAILY [facility] Stop: 09/12/18 08:59 Last Admin: 07/16/18 08:43 Dose: 500 mg Atorvastatin Calcium (Lipitor) 20 mg PO HS [facility] Stop: 09/11/18 20:59 Last Admin: 07/15/18 21:13 Dose: 20 mg [place] Oil/[place] Balsam/Trypsin (Venelex) 1 appl TP DAILY [facility] Stop: 09/13/18 08:59 Last Admin: 07/16/18 10:35 Dose: 1 appl Dextrose (D50w) 50 ml IVP PRN PRN PRN Reason: Blood Glucose less than 70 Stop: 09/11/18 04:10 Dextrose (Glutose 40%) 18.75 gm PO PRN PRN PRN Reason: Blood Glucose less than 70 Stop: 09/11/18 04:10 Docusate Sodium (Colace) 100 mg PO BID [facility] Stop: 09/11/18 16:59 Last Admin: 07/16/18 08:44 Dose: 100 mg Famotidine (Pepcid) 20 mg PO DAILY [facility] Stop: 09/12/18 08:59 Last Admin: 07/16/18 08:43 Dose: 20 mg Folic Acid (Folate) 1 mg PO DAILY [facility] Stop: 09/12/18 08:59 Last Admin: 07/16/18 08:43 Dose: 1 mg Glucagon (Glucagen) 1 mg IM PRN PRN PRN Reason: Blood Glucose less than 70 Stop: 09/11/18 04:10 Dextrose/Sodium Chloride (D5-0.45ns) 1,000 mls @ 50 mls/hr IV .Q20H [facility] Stop: 09/11/18 02:29 Last Admin: 07/16/18 03:31 Dose: 50 mls/hr Amikacin Sulfate 500 mg/ (Dextrose) 102 mls @ 100 mls/hr IV ONCE ONE Stop: 07/16/18 15:01 Last Admin: 07/16/18 13:01 Dose: 100 mls/hr Insulin Aspart (Novolog Insulin Sliding Scale) 0 units SUBQ Q6HR [facility]; Protocol Stop: 09/11/18 05:59 Last Admin: 07/16/18 05:45 Dose: Not Given Lactobacillus Rhamnosus (Culturelle 15b) 1 each PO DAILY [facility] Stop: 09/13/18 13:59 Last Admin: 07/16/18 08:43 Dose: 1 each Levothyroxine Sodium (Synthroid) 0.025 mg PO QDAC [facility] Stop: 09/12/18 07:29 Last Admin: 07/16/18 06:39 Dose: 0.025 mg Miscellaneous (Probiotic Screen) 1 ea MC PRN PRN PRN Reason: PROTOCOL Stop: 09/13/18 11:44 Miscellaneous (Amikacin Iv Per Pharmacy) 1 ea MC PRN PRN PRN Reason: PROTOCOL Stop: 09/13/18 18:08 Oxcarbazepine (Trileptal) 600 mg PO BID [facility] Stop: 09/11/18 16:59 Last Admin: 07/16/18 08:42 Dose: 600 mg Risperidone (Risperdal) 2 mg PO HS [facility] Stop: 09/11/18 20:59 Last Admin: 07/15/18 21:13 Dose: 2 mg Senna (Senna) 17.2 mg PO BID [facility] Stop: 09/11/18 16:59 Last Admin: 07/16/18 08:43 Dose: 17.2 mg Sevelamer Carbonate (Renvela) 800 mg PO TIDWM [facility] Stop: 09/11/18 16:59 Last Admin: 07/16/18 14:22 Dose: 800 mg Temazepam (Restoril) 15 mg PO HS PRN; Protocol PRN Reason: Insomnia Stop: 09/11/18 15:14 Vitamin B Complex/Vit C/Folic Acid (Vitamin B Complex W/Vitamin C) 1 tab PO DAILY [facility] Stop: 09/12/18 08:59 Last Admin: 07/16/18 08:43 Dose: 1 tab Zinc Sulfate (Zinc Sulfate) 220 mg PO DAILY [facility] Stop: 09/12/18 08:59 Last Admin: 07/16/18 08:43 Dose: 220 mg General: Alert, Mild distress HEENT: Atraumatic, EOMI Neck: Supple, +2 carotid pulse wo bruit Cardiovascular: Regular rate, Normal S1, Normal S2 Lungs: Other (scattered rales) Abdomen: Bowel sounds, Soft Extremities: Edema ((+) 2-3 edema), Other (mild) Neurological: Sensation intact Skin: no Rash Psych/Mental Status: Mood NL Assessment/Plan - Assessment Assessment: ESRD on HD Hypothyroid Parkinson Ds. Fnc Quad Hep B,C GERD Left Calf ulcer Sacral Decub ulcer Cholelithiasis B/L HAP w/ effusions Peripheral edema - Plan Plan: Lab - Result Diagrams 07/14/18 05:00 07/14/18 05:00 Current Medications Acetaminophen (Tylenol) 650 mg PO Q6H PRN PRN Reason: Pain or Fever >101 Stop: 09/11/18 15:14 Acetaminophen/Hydrocodone Bitart ([place] 5mg/325mg) 1 tab PO Q6H PRN PRN Reason: Pain (Severe) Stop: 09/11/18 15:14 Albuterol/Ipratropium (Duoneb Neb) 3 ml HHN Q4HRT PRN PRN Reason: Shortness of Breath or Wheeze Stop: 09/11/18 15:14 Ascorbic Acid (Vitamin C) 500 mg PO DAILY [facility] Stop: 09/12/18 08:59 Last Admin: 07/14/18 08:27 Dose: 500 mg Atorvastatin Calcium (Lipitor) 20 mg PO HS [facility] Stop: 09/11/18 20:59 Last Admin: 07/13/18 21:05 Dose: 20 mg Dextrose (D50w) 50 ml IVP PRN PRN PRN Reason: Blood Glucose less than 70 Stop: 09/11/18 04:10 Dextrose (Glutose 40%) 18.75 gm PO PRN PRN PRN Reason: Blood Glucose less than 70 Stop: 09/11/18 04:10 Docusate Sodium (Colace) 100 mg PO BID [facility] Stop: 09/11/18 16:59 Last Admin: 07/14/18 08:27 Dose: 100 mg Famotidine (Pepcid) 20 mg PO DAILY [facility] Stop: 09/12/18 08:59 Last Admin: 07/14/18 08:27 Dose: 20 mg Folic Acid (Folate) 1 mg PO DAILY [facility] Stop: 09/12/18 08:59 Last Admin: 07/14/18 08:27 Dose: 1 mg Glucagon (Glucagen) 1 mg IM PRN PRN PRN Reason: Blood Glucose less than 70 Stop: 09/11/18 04:10 Piperacillin Sod/Tazobactam (Sod 2.25 gm/ Sodium Chloride) 50 mls @ 100 mls/hr IV Q6H [facility] Stop: 09/11/18 05:59 Last Admin: 07/14/18 06:05 Dose: Not Given Dextrose/Sodium Chloride (D5-0.45ns) 1,000 mls @ 50 mls/hr IV .Q20H [facility] Stop: 09/11/18 02:29 Last Admin: 07/13/18 04:03 Dose: 50 mls/hr Insulin Aspart (Novolog Insulin Sliding Scale) 0 units SUBQ Q6HR [facility]; Protocol Stop: 09/11/18 05:59 Last Admin: 07/14/18 06:05 Dose: Not Given Levothyroxine Sodium (Synthroid) 0.025 mg PO QDAC [facility] Stop: 09/12/18 07:29 Last Admin: 07/14/18 06:35 Dose: 0.025 mg Miscellaneous (Vancomycin Iv Per Pharmacy) 1 ea MC PRN PRN PRN Reason: PROTOCOL Stop: 09/10/18 23:40 Oxcarbazepine (Trileptal) 600 mg PO BID [facility] Stop: 09/11/18 16:59 Last Admin: 07/14/18 08:27 Dose: 600 mg Risperidone (Risperdal) 2 mg PO HS [facility] Stop: 09/11/18 20:59 Last Admin: 07/13/18 21:05 Dose: 2 mg Senna (Senna) 17.2 mg PO BID [facility] Stop: 09/11/18 16:59 Last Admin: 07/14/18 08:27 Dose: 17.2 mg Sevelamer Carbonate (Renvela) 800 mg PO TIDWM [facility] Stop: 09/11/18 16:59 Last Admin: 07/14/18 08:27 Dose: 800 mg Temazepam (Restoril) 15 mg PO HS PRN; Protocol PRN Reason: Insomnia Stop: 09/11/18 15:14 Vitamin B Complex/Vit C/Folic Acid (Vitamin B Complex W/Vitamin C) 1 tab PO DAILY [facility] Stop: 09/12/18 08:59 Last Admin: 07/14/18 08:27 Dose: 1 tab Zinc Sulfate (Zinc Sulfate) 220 mg PO DAILY [facility] Stop: 09/12/18 08:59 Last Admin: 07/14/18 08:27 Dose: 220 mg Lab - Result Diagrams 07/14/18 05:00 07/14/18 05:00 scheduled for HD tomorrow Cr. more elevated w/ peripheral edema continue wound care Nutritional Asmnt/Malnutr-PDOC - Dietary Evaluation Malnutrition Findings (Please click <Entered> for more info): Nutritional Asmnt/Malnutrition Start: 07/13/18 13: 54 Text: Status: Complete Freq: Protocol: Document 07/13/18 13:56 ALDAIR (Rec: 07/13/18 14:10 ALDAIR NASH- [id number]) Nutritional Asmnt/Malnutrition Patient General Information Nutritional Screening Consult Diagnosis ESRD, anasarca Pertinent Medical Hx/Surgical Hx Seizure, hep C, diabetes, CAD, HTN, CVA, quadreplegia, Parkinsons, ESRD Subjective Information Consult received for "Diabetic ". Per nursing notes, patient receives hemodialysis MWF and patient is non-verbal. Patient with 2+ pitting edema. Current Diet Order/ Nutrition Support Renal diet Patient / S.O Not Indicated Pertinent Medications D50W, D5-0.45NS @50 ml/hr, Glucagon, Novolog Pertinent Labs (07/13) Na 134, BUN 48, Cr 2.9, glucose 41-137, Ca 8.2, BNP 515, albumin 2 Nutritional Hx/Data Height 1.73 m Height (Calculated Centimeters) 172.7 Current Weight (lbs) 113.852 kg Weight (Calculated Kilograms) 113.9 Weight (Calculated Grams) 450489.7 [place] Body Weight 140 % [place] Body Weight 179 Body Mass Index (BMI) 38.1 Recent Weight Change No Weight Status Morbidly Obese GI Symptoms GI Symptoms None Last BM 9/3 x 1 Difficult in: Chewing Food Allergies No Cultural/Ethnic/Mosque Belief none indicated Usual diet at home unknown Skin Integrity/Comment: Arian 10, ulceration on sacrum, left lower leg, abrasion on L heel, scar on right leg. Current %PO Good (75-100%) Estimated Nutritional Goals BEE in Kcals: Adj wt of IBW Calories/Kcals/Kg 27-32 kcal/kg (using 76.2kg ADj wt) Kcals Calculated ~5099-2378 kcal/day Protein g/k.2-1.5 gm/kg using Adj wt Protein Calculated ~90-115 gm/day Fluid: ml Per MD due to HD Nutritional Problem 2. Problem Problem Altered nutrition related lab values related to Etiology episodes of hypoglycemia, electrolyte imbalance aeb Signs/Symptoms: Na 134, glucose 41-137, Ca 8.2 1. Problem Problem Increased nutrient needs related to Etiology hypermetabolic state, impaired skin integrity aeb Signs/Symptoms: Pt on Hemodialysis and with multiple ulcerations Intervention/Recommendation Comments 1. Continue Renal diet as tolerated by patient. No need for DM restriction at this time due to hypoglycemia. 2. Consider fluid restriction due to HD, hyponatremia and edema. 3. Consider adding Prosource 1 packet with each meal for an additional 45gm protein. Expected Outcomes/Goals Expected Outcomes/Goals Oral intake >75% of meals, weight stable or trend toward ideal body weight, nutrition related labs WNL
--- NOTE | 2018-07-16 18:49 | Infectious Disease Prog Note ---
Infectious Disease Subjective - Review of Systems Service Date: 07/16/18 Events since last encounter: cc infected sacral decub esrd hpi- wound cx mrsa mdr ab ros no fevr o/e vs chaest claera bd soft ext anasarca Infectious Disease Objective - Results Result Diagrams: 07/16/18 04:50 07/16/18 04:50 Recent Labs: Laboratory Last Values WBC 5.6 Th/cmm (4.8-10.8) 07/16/18 04:50 RBC 3.48 Mil/cmm (3.80-5.10) L 07/16/18 04:50 Hgb 10.2 gm/dL (12-16) L 07/16/18 04:50 Hct 30.8 % (41.0-60) L 07/16/18 04:50 MCV 88.6 fl (81-100) 07/16/18 04:50 MCH 29.2 pg (27.0-31.0) 07/16/18 04:50 MCHC Differential 33.0 pg (28.0-36.0) 07/16/18 04:50 RDW 17.8 % (11.5-20.0) 07/16/18 04:50 Plt Count 82 Th/cmm (150-400) L 07/16/18 04:50 MPV 6.5 fl 07/16/18 04:50 Add Manual Diff YES 07/16/18 04:50 Neutrophils % ORE DIGGER 07/16/18 04:50 Band Neutrophils % 2 % (0-10) 07/14/18 05:00 Lymphocytes % ORE DIGGER 07/16/18 04:50 Monocytes % ORE DIGGER 07/16/18 04:50 Eosinophils % ORE DIGGER 07/16/18 04:50 Basophils % ORE DIGGER 07/16/18 04:50 Neutrophils (Manual) 33 % (40-80) L 07/16/18 04:50 Lymphocytes 52 % (20-50) H 07/16/18 04:50 Monocytes 15 % (2-10) H 07/16/18 04:50 Eosinophils 0 % (0-5) 07/14/18 05:00 Basophils 0 % (0-3) 07/14/18 05:00 Platelet Estimate DECREASED PLATELETS (NORMAL) 07/16/18 04:50 Sodium 136 mEq/L (136-145) 07/16/18 04:50 Potassium 4.4 mEq/L (3.5-5.1) 07/16/18 04:50 Chloride 103 mEq/L (98-107) 07/16/18 04:50 Carbon Dioxide 26.3 mEq/L (21.0-31.0) 07/16/18 04:50 Anion Gap 11.1 (7.0-16.0) 07/16/18 04:50 BUN 38 mg/dL (7-25) H 07/16/18 04:50 Creatinine 3.1 mg/dL (0.6-1.2) H 07/16/18 04:50 Est GFR ( Amer) 20.5 ml/min (>90) 07/16/18 04:50 Est GFR (Non-Af Amer) 17.0 ml/min 07/16/18 04:50 BUN/Creatinine Ratio 12.3 07/16/18 04:50 Glucose 107 mg/dL (70-105) H 07/16/18 04:50 POC Glucose 174 MG/DL (70 - 105) H 07/16/18 12:01 Whole Bld Lactic Acid 1.29 mmol/L (0.60-1.99) 07/12/18 20:50 Calcium 8.1 mg/dL (8.6-10.3) L 07/16/18 04:50 Total Bilirubin 0.3 mg/dL (0.3-1.0) 07/14/18 05:00 AST 14 U/L (13-39) 07/14/18 05:00 ALT 5 U/L (7-52) L 07/14/18 05:00 Alkaline Phosphatase 113 U/L (34-104) H 07/14/18 05:00 Creatine Kinase 20 U/L (30-223) L 07/12/18 20:50 Troponin I 0.49 ng/mL (0.01-0.05) H* 07/13/18 15:20 B-Natriuretic Peptide 515.0 pg/mL (5.0-100.0) H 07/13/18 04:00 Total Protein 4.9 gm/dL (6.0-8.3) L 07/14/18 05:00 Albumin 1.8 gm/dL (3.7-5.3) L 07/14/18 05:00 Globulin 3.1 gm/dL 07/14/18 05:00 Albumin/Globulin Ratio 0.6 (1.0-1.8) L 07/14/18 05:00 Triglycerides 53 mg/dL (<150) 07/13/18 04:00 Cholesterol 41 mg/dL (<200) 07/13/18 04:00 LDL Cholesterol Direct 11 mg/dL (75-193) L 07/13/18 04:00 HDL Cholesterol 24 mg/dL (23-92) 07/13/18 04:00 TSH 1.21 uIU/ml (0.34-5.60) 07/13/18 04:00 Urine Source [place] 07/12/18 20:50 Urine Color YELLOW 07/12/18 20:50 Urine Clarity CLOUDY (CLEAR) H 07/12/18 20:50 Urine pH 8.5 (4.6 - 8.0) 07/12/18 20:50 Ur Specific [place] 1.015 (1.005-1.030) 07/12/18 20:50 Urine Protein 100 mg/dL (NEGATIVE) H 07/12/18 20:50 Urine Glucose (UA) NEGATIVE mg/dL (NEGATIVE) 07/12/18 20:50 Urine Ketones NEGATIVE mg/dL (NEGATIVE) 07/12/18 20:50 Urine Blood TRACE (NEGATIVE) 07/12/18 20:50 Urine Nitrate NEGATIVE (NEGATIVE) 07/12/18 20:50 Urine Bilirubin NEGATIVE (NEGATIVE) 07/12/18 20:50 Urine Urobilinogen 0.2 E.U./dL (0.2 - 1.0) 07/12/18 20:50 Ur Leukocyte Esterase LARGE (NEGATIVE) H 07/12/18 20:50 Urine RBC 2-5 /hpf (0-5) 07/12/18 20:50 Urine WBC >100 /hpf (0-5) H 07/12/18 20:50 Ur Epithelial Cells MODERATE /lpf (FEW) 07/12/18 20:50 Urine Bacteria MANY /hpf (NONE SEEN) H 07/12/18 20:50 Random Vancomycin 29.7 ug/mL (5.0-40.0) 07/16/18 04:50 - Physical Exam Vitals and I&O: Vital Signs Temp 98.1 F 07/16/18 15:39 Pulse 105 09/06/18 15:39 Resp 20 07/16/18 15:39 BP 133/88 07/16/18 15:39 Pulse Ox 100 07/16/18 15:39 Intake & Output 07/15/18 07/16/18 07/16/18 18:59 06:59 18:59 Intake Total 150 1761 Output Total 300 Balance 150 1461 Weight (lbs) 106.866 kg 106.503 kg Intake: Intake, IV Amount 150 1101 D5-0.45NS 1,000 ml @ 50 1000 mls/hr IV .Q20H [facility] Rx#: [id number] Piperacillin Sodium/ 150 Tazobact 2.25 gm In Sodium Chloride 0.9% 50 ml @ 100 mls/hr IV Q6H [facility] Rx#:[id number] Oral 310 Other 350 Output: Urine 300 Other: # Bowel Movements 1 Weight Source Bedscale Bedscale Active Medications: Current Medications Acetaminophen (Tylenol) 650 mg PO Q6H PRN PRN Reason: Pain or Fever >101 Stop: 09/11/18 15:14 Acetaminophen/Hydrocodone Bitart ([place] 5mg/325mg) 1 tab PO Q6H PRN PRN Reason: Pain (Severe) Stop: 09/11/18 15:14 Last Admin: 07/16/18 14:22 Dose: 1 tab Albuterol/Ipratropium (Duoneb Neb) 3 ml HHN Q4HRT PRN PRN Reason: Shortness of Breath or Wheeze Stop: 09/11/18 15:14 Ascorbic Acid (Vitamin C) 500 mg PO DAILY [facility] Stop: 09/12/18 08:59 Last Admin: 07/16/18 08:43 Dose: 500 mg Atorvastatin Calcium (Lipitor) 20 mg PO HS [facility] Stop: 09/11/18 20:59 Last Admin: 07/15/18 21:13 Dose: 20 mg [place] Oil/[place] Balsam/Trypsin (Venelex) 1 appl TP DAILY [facility] Stop: 09/13/18 08:59 Last Admin: 07/16/18 10:35 Dose: 1 appl Dextrose (D50w) 50 ml IVP PRN PRN PRN Reason: Blood Glucose less than 70 Stop: 09/11/18 04:10 Dextrose (Glutose 40%) 18.75 gm PO PRN PRN PRN Reason: Blood Glucose less than 70 Stop: 09/11/18 04:10 Docusate Sodium (Colace) 100 mg PO BID [facility] Stop: 09/11/18 16:59 Last Admin: 07/16/18 17:59 Dose: 100 mg Famotidine (Pepcid) 20 mg PO DAILY [facility] Stop: 09/12/18 08:59 Last Admin: 07/16/18 08:43 Dose: 20 mg Folic Acid (Folate) 1 mg PO DAILY [facility] Stop: 09/12/18 08:59 Last Admin: 07/16/18 08:43 Dose: 1 mg Glucagon (Glucagen) 1 mg IM PRN PRN PRN Reason: Blood Glucose less than 70 Stop: 09/11/18 04:10 Dextrose/Sodium Chloride (D5-0.45ns) 1,000 mls @ 50 mls/hr IV .Q20H [facility] Stop: 09/11/18 02:29 Last Admin: 07/16/18 03:31 Dose: 50 mls/hr Insulin Aspart (Novolog Insulin Sliding Scale) 0 units SUBQ Q6HR [facility]; Protocol Stop: 09/11/18 05:59 Last Admin: 07/16/18 18:06 Dose: Not Given Lactobacillus Rhamnosus (Culturelle 15b) 1 each PO DAILY [facility] Stop: 09/13/18 13:59 Last Admin: 07/16/18 08:43 Dose: 1 each Levothyroxine Sodium (Synthroid) 0.025 mg PO QDAC [facility] Stop: 09/12/18 07:29 Last Admin: 07/16/18 06:39 Dose: 0.025 mg Miscellaneous (Probiotic Screen) 1 ea [facility] PRN PRN PRN Reason: PROTOCOL Stop: 09/13/18 11:44 Miscellaneous (Amikacin Iv Per Pharmacy) 1 ea [facility] PRN PRN PRN Reason: PROTOCOL Stop: 09/13/18 18:08 Miscellaneous (Vancomycin Iv Per Pharmacy) 1 ea MC PRN [facility] Stop: 09/14/18 18:59 Oxcarbazepine (Trileptal) 600 mg PO BID [facility] Stop: 09/11/18 16:59 Last Admin: 07/16/18 17:59 Dose: 600 mg Risperidone (Risperdal) 2 mg PO HS [facility] Stop: 09/11/18 20:59 Last Admin: 07/15/18 21:13 Dose: 2 mg Senna (Senna) 17.2 mg PO BID [facility] Stop: 09/11/18 16:59 Last Admin: 07/16/18 17:59 Dose: 17.2 mg Sevelamer Carbonate (Renvela) 800 mg PO TIDWM [facility] Stop: 09/11/18 16:59 Last Admin: 07/16/18 17:59 Dose: 800 mg Temazepam (Restoril) 15 mg PO HS PRN; Protocol PRN Reason: Insomnia Stop: 09/11/18 15:14 Vitamin B Complex/Vit C/Folic Acid (Vitamin B Complex W/Vitamin C) 1 tab PO DAILY [facility] Stop: 09/12/18 08:59 Last Admin: 07/16/18 08:43 Dose: 1 tab Zinc Sulfate (Zinc Sulfate) 220 mg PO DAILY [facility] Stop: 09/12/18 08:59 Last Admin: 07/16/18 08:43 Dose: 220 mg Nutritional Asmnt/Malnutr-PDOC - Dietary Evaluation Malnutrition Findings (Please click <Entered> for more info): Nutritional Asmnt/Malnutrition Start: 07/13/18 13: 54 Text: Status: Complete Freq: Protocol: Document 07/13/18 13:56 MMERIN (Rec: 07/13/18 14:10 [id number] [id number]- [id number]) Nutritional Asmnt/Malnutrition Patient General Information Nutritional Screening Consult Diagnosis ESRD, anasarca Pertinent Medical Hx/Surgical Hx Seizure, hep C, diabetes, CAD, HTN, CVA, quadreplegia, Parkinsons, ESRD Subjective Information Consult received for "Diabetic ". Per nursing notes, patient receives hemodialysis MWF and patient is non-verbal. Patient with 2+ pitting edema. Current Diet Order/ Nutrition Support Renal diet Patient / S.O Not Indicated Pertinent Medications D50W, D5-0.45NS @50 ml/hr, Glucagon, Novolog Pertinent Labs (07/13) Na 134, BUN 48, Cr 2.9, glucose 41-137, Ca 8.2, BNP 515, albumin 2 Nutritional Hx/Data Height 1.73 m Height (Calculated Centimeters) 172.7 Current Weight (lbs) 113.852 kg Weight (Calculated Kilograms) 113.9 Weight (Calculated Grams) 626952.7 [place] Body Weight 140 % [place] Body Weight 179 Body Mass Index (BMI) 38.1 Recent Weight Change No Weight Status Morbidly Obese GI Symptoms GI Symptoms None Last BM 9/ x 1 Difficult in: Chewing Food Allergies No Cultural/Ethnic/Sabianism Belief none indicated Usual diet at home unknown Skin Integrity/Comment: Arian 10, ulceration on sacrum, left lower leg, abrasion on L heel, scar on right leg. Current %PO Good (75-100%) Estimated Nutritional Goals BEE in Kcals: Adj wt of IBW Calories/Kcals/Kg 27-32 kcal/kg (using 76.2kg ADj wt) Kcals Calculated ~1528-5479 kcal/day Protein g/k.2-1.5 gm/kg using Adj wt Protein Calculated ~90-115 gm/day Fluid: ml Per MD due to HD Nutritional Problem 2. Problem Problem Altered nutrition related lab values related to Etiology episodes of hypoglycemia, electrolyte imbalance aeb Signs/Symptoms: Na 134, glucose 41-137, Ca 8.2 1. Problem Problem Increased nutrient needs related to Etiology hypermetabolic state, impaired skin integrity aeb Signs/Symptoms: Pt on Hemodialysis and with multiple ulcerations Intervention/Recommendation Comments 1. Continue Renal diet as tolerated by patient. No need for DM restriction at this time due to hypoglycemia. 2. Consider fluid restriction due to HD, hyponatremia and edema. 3. Consider adding Prosource 1 packet with each meal for an additional 45gm protein. Expected Outcomes/Goals Expected Outcomes/Goals Oral intake >75% of meals, weight stable or trend toward ideal body weight, nutrition related labs WNL
[2018-07-16] MEDS: Atorvastatin Calcium 10 MG TAB PO SCH (20:11)
[2018-07-17] MEDS: INSULIN ASPART SLIDING SCALE 100 UNITS/ML UNIT SUBQ SCH ×4 (00:21→17:33)
[2018-07-17] MEDS: Levothyroxine 0.025 Mg Tab PO SCH (06:48)
--- NOTE | 2018-07-17 07:46 | Diagnostic Imaging Report ---
CHEST X-RAY: AP view INDICATION: Pneumonia/CHF COMPARISON: 07/12/2018 FINDINGS: Persistent CHF is seen bilateral infiltrates and effusions. Mild cardiomegaly is noted. IMPRESSION: Persistent CHF with bilateral effusions and infiltrates.
[2018-07-17] MEDS: Vitamin B Complex w/Vitamin C Tab PO SCH (08:30)
[2018-07-17] MEDS: Lactobacillus Rhamnosus GG 15 Billion CFU CAP.SPRINK PO SCH (08:30)
[2018-07-17] MEDS: Docusate Sodium 100 mg/10 mL UD PO SCH ×2 (08:30→17:34)
[2018-07-17] MEDS: Venelex 60gm Tube TP SCH (08:32)
--- NOTE | 2018-07-17 14:04 | General Progress Note ---
Subjective - Review of Systems Service Date: 07/17/18 Subjective: more awake, mod SOB, verbal Objective - Results Result Diagrams: 07/16/18 04:50 07/16/18 04:50 Recent Labs: Laboratory Last Values WBC 5.6 Th/cmm (4.8-10.8) 07/16/18 04:50 RBC 3.48 Mil/cmm (3.80-5.10) L 07/16/18 04:50 Hgb 10.2 gm/dL (12-16) L 07/16/18 04:50 Hct 30.8 % (41.0-60) L 07/16/18 04:50 MCV 88.6 fl (81-100) 07/16/18 04:50 MCH 29.2 pg (27.0-31.0) 07/16/18 04:50 MCHC Differential 33.0 pg (28.0-36.0) 07/16/18 04:50 RDW 17.8 % (11.5-20.0) 07/16/18 04:50 Plt Count 82 Th/cmm (150-400) L 07/16/18 04:50 MPV 6.5 fl 07/16/18 04:50 Add Manual Diff YES 07/16/18 04:50 Neutrophils % BULK PLANT OPERATOR 07/16/18 04:50 Band Neutrophils % 2 % (0-10) 07/14/18 05:00 Lymphocytes % BULK PLANT OPERATOR 07/16/18 04:50 Monocytes % BULK PLANT OPERATOR 07/16/18 04:50 Eosinophils % BULK PLANT OPERATOR 07/16/18 04:50 Basophils % BULK PLANT OPERATOR 07/16/18 04:50 Neutrophils (Manual) 33 % (40-80) L 07/16/18 04:50 Lymphocytes 52 % (20-50) H 07/16/18 04:50 Monocytes 15 % (2-10) H 07/16/18 04:50 Eosinophils 0 % (0-5) 07/14/18 05:00 Basophils 0 % (0-3) 07/14/18 05:00 Platelet Estimate DECREASED PLATELETS (NORMAL) 07/16/18 04:50 Sodium 136 mEq/L (136-145) 07/16/18 04:50 Potassium 4.4 mEq/L (3.5-5.1) 07/16/18 04:50 Chloride 103 mEq/L (98-107) 07/16/18 04:50 Carbon Dioxide 26.3 mEq/L (21.0-31.0) 07/16/18 04:50 Anion Gap 11.1 (7.0-16.0) 07/16/18 04:50 BUN 38 mg/dL (7-25) H 07/16/18 04:50 Creatinine 3.1 mg/dL (0.6-1.2) H 07/16/18 04:50 Est GFR ( Amer) 20.5 ml/min (>90) 07/16/18 04:50 Est GFR (Non-Af Amer) 17.0 ml/min 07/16/18 04:50 BUN/Creatinine Ratio 12.3 07/16/18 04:50 Glucose 107 mg/dL (70-105) H 07/16/18 04:50 POC Glucose 169 MG/DL (70 - 105) H 07/17/18 11:32 Whole Bld Lactic Acid 1.29 mmol/L (0.60-1.99) 07/12/18 20:50 Calcium 8.1 mg/dL (8.6-10.3) L 07/16/18 04:50 Total Bilirubin 0.3 mg/dL (0.3-1.0) 07/14/18 05:00 AST 14 U/L (13-39) 07/14/18 05:00 ALT 5 U/L (7-52) L 07/14/18 05:00 Alkaline Phosphatase 113 U/L (34-104) H 07/14/18 05:00 Creatine Kinase 20 U/L (30-223) L 07/12/18 20:50 Troponin I 0.49 ng/mL (0.01-0.05) H* 07/13/18 15:20 B-Natriuretic Peptide 515.0 pg/mL (5.0-100.0) H 07/13/18 04:00 Total Protein 4.9 gm/dL (6.0-8.3) L 07/14/18 05:00 Albumin 1.8 gm/dL (3.7-5.3) L 07/14/18 05:00 Globulin 3.1 gm/dL 07/14/18 05:00 Albumin/Globulin Ratio 0.6 (1.0-1.8) L 07/14/18 05:00 Triglycerides 53 mg/dL (<150) 07/13/18 04:00 Cholesterol 41 mg/dL (<200) 07/13/18 04:00 LDL Cholesterol Direct 11 mg/dL (75-193) L 07/13/18 04:00 HDL Cholesterol 24 mg/dL (23-92) 07/13/18 04:00 TSH 1.21 uIU/ml (0.34-5.60) 07/13/18 04:00 Urine Source [place] 07/12/18 20:50 Urine Color YELLOW 07/12/18 20:50 Urine Clarity CLOUDY (CLEAR) H 07/12/18 20:50 Urine pH 8.5 (4.6 - 8.0) 07/12/18 20:50 Ur Specific [place] 1.015 (1.005-1.030) 07/12/18 20:50 Urine Protein 100 mg/dL (NEGATIVE) H 07/12/18 20:50 Urine Glucose (UA) NEGATIVE mg/dL (NEGATIVE) 07/12/18 20:50 Urine Ketones NEGATIVE mg/dL (NEGATIVE) 07/12/18 20:50 Urine Blood TRACE (NEGATIVE) 07/12/18 20:50 Urine Nitrate NEGATIVE (NEGATIVE) 07/12/18 20:50 Urine Bilirubin NEGATIVE (NEGATIVE) 07/12/18 20:50 Urine Urobilinogen 0.2 E.U./dL (0.2 - 1.0) 07/12/18 20:50 Ur Leukocyte Esterase LARGE (NEGATIVE) H 07/12/18 20:50 Urine RBC 2-5 /hpf (0-5) 07/12/18 20:50 Urine WBC >100 /hpf (0-5) H 07/12/18 20:50 Ur Epithelial Cells MODERATE /lpf (FEW) 07/12/18 20:50 Urine Bacteria MANY /hpf (NONE SEEN) H 07/12/18 20:50 Random Vancomycin 29.7 ug/mL (5.0-40.0) 07/16/18 04:50 - Physical Exam Vitals and I&O: Vital Signs Temp 97.5 F 07/17/18 11:48 Pulse 103 07/17/18 11:48 Resp 20 07/17/18 11:48 BP 148/71 07/17/18 11:48 Pulse Ox 100 07/17/18 11:48 Intake & Output 07/16/18 07/17/18 07/17/18 18:59 06:59 18:59 Intake Total 1260.833 Output Total 50 Balance 1210.833 Weight (lbs) 106.503 kg 106.594 kg Intake: Intake, IV Amount 1210.833 D5-0.45NS 1,000 ml @ 50 960.833 mls/hr IV .Q20H [facility] Rx#: [id number] Oral 50 Output: Urine 50 Other: Weight Source Bedscale Bedscale Active Medications: Current Medications Acetaminophen (Tylenol) 650 mg PO Q6H PRN PRN Reason: Pain or Fever >101 Stop: 09/11/18 15:14 Acetaminophen/Hydrocodone Bitart ([place] 5mg/325mg) 1 tab PO Q6H PRN PRN Reason: Pain (Severe) Stop: 09/11/18 15:14 Last Admin: 07/16/18 14:22 Dose: 1 tab Albuterol/Ipratropium (Duoneb Neb) 3 ml HHN Q4HRT PRN PRN Reason: Shortness of Breath or Wheeze Stop: 09/11/18 15:14 Ascorbic Acid (Vitamin C) 500 mg PO DAILY [facility] Stop: 09/12/18 08:59 Last Admin: 07/17/18 08:30 Dose: 500 mg Atorvastatin Calcium (Lipitor) 20 mg PO HS [facility] Stop: 09/11/18 20:59 Last Admin: 07/16/18 20:11 Dose: 20 mg [place] Oil/[place] Balsam/Trypsin (Venelex) 1 appl TP DAILY [facility] Stop: 09/13/18 08:59 Last Admin: 07/17/18 08:32 Dose: 1 appl Dextrose (Glutose 40%) 18.75 gm PO PRN PRN PRN Reason: Blood Glucose less than 70 Stop: 09/11/18 04:10 Docusate Sodium (Colace) 100 mg PO BID [facility] Stop: 09/11/18 16:59 Last Admin: 07/17/18 08:30 Dose: 100 mg Famotidine (Pepcid) 20 mg PO DAILY [facility] Stop: 09/12/18 08:59 Last Admin: 07/17/18 08:30 Dose: 20 mg Folic Acid (Folate) 1 mg PO DAILY [facility] Stop: 09/12/18 08:59 Last Admin: 07/17/18 08:30 Dose: 1 mg Glucagon (Glucagen) 1 mg IM PRN PRN PRN Reason: Blood Glucose less than 70 Stop: 09/11/18 04:10 Dextrose/Sodium Chloride (D5-0.45ns) 1,000 mls @ 50 mls/hr IV .Q20H [facility] Stop: 09/11/18 02:29 Last Admin: 07/16/18 22:44 Dose: 50 mls/hr Insulin Aspart (Novolog Insulin Sliding Scale) 0 units SUBQ Q6HR [facility]; Protocol Stop: 09/11/18 05:59 Last Admin: 07/17/18 12:10 Dose: 2 units Lactobacillus Rhamnosus (Culturelle 15b) 1 each PO DAILY [facility] Stop: 09/13/18 13:59 Last Admin: 07/17/18 08:30 Dose: 1 each Levothyroxine Sodium (Synthroid) 0.025 mg PO QDAC [facility] Stop: 09/12/18 07:29 Last Admin: 07/17/18 06:48 Dose: 0.025 mg Miscellaneous (Probiotic Screen) 1 ea PRN PRN PRN Reason: PROTOCOL Stop: 09/13/18 11:44 Miscellaneous (Amikacin Iv Per Pharmacy) 1 [facility] PRN PRN PRN Reason: PROTOCOL Stop: 09/13/18 18:08 Miscellaneous (Vancomycin Iv Per Pharmacy) 1 ea MC PRN [facility] Stop: 09/14/18 18:59 Oxcarbazepine (Trileptal) 600 mg PO BID [facility] Stop: 09/11/18 16:59 Last Admin: 07/17/18 08:30 Dose: 600 mg Risperidone (Risperdal) 2 mg PO HS [facility] Stop: 09/11/18 20:59 Last Admin: 07/16/18 20:11 Dose: 2 mg Senna (Senna) 17.2 mg PO BID [facility] Stop: 09/11/18 16:59 Last Admin: 07/17/18 08:30 Dose: 17.2 mg Sevelamer Carbonate (Renvela) 800 mg PO TIDWM [facility] Stop: 09/11/18 16:59 Last Admin: 07/17/18 12:10 Dose: 800 mg Temazepam (Restoril) 15 mg PO HS PRN; Protocol PRN Reason: Insomnia Stop: 09/11/18 15:14 Vitamin B Complex/Vit C/Folic Acid (Vitamin B Complex W/Vitamin C) 1 tab PO DAILY [facility] Stop: 09/12/18 08:59 Last Admin: 07/17/18 08:30 Dose: 1 tab Zinc Sulfate (Zinc Sulfate) 220 mg PO DAILY [facility] Stop: 09/12/18 08:59 Last Admin: 07/17/18 08:30 Dose: 220 mg General: Alert, Mild distress HEENT: Atraumatic, EOMI Neck: Supple, +2 carotid pulse wo bruit Cardiovascular: Regular rate, Normal S1, Normal S2 Lungs: Other (scattered rales) Abdomen: Bowel sounds, Soft Extremities: Edema ((+) 2-3 edema), Other ((+) 3 bipedal edema) Neurological: Sensation intact Skin: no Rash Psych/Mental Status: Mood NL Assessment/Plan - Assessment Assessment: ESRD on HD Hypothyroid Parkinson Ds. Fnc Quad Hep B,C GERD Left Calf ulcer Sacral Decub ulcer Cholelithiasis B/L HAP w/ effusions Peripheral edema - Plan Plan: Lab - Result Diagrams 07/14/18 05:00 07/14/18 05:00 Current Medications Acetaminophen (Tylenol) 650 mg PO Q6H PRN PRN Reason: Pain or Fever >101 Stop: 09/11/18 15:14 Acetaminophen/Hydrocodone Bitart ([place] 5mg/325mg) 1 tab PO Q6H PRN PRN Reason: Pain (Severe) Stop: 09/11/18 15:14 Albuterol/Ipratropium (Duoneb Neb) 3 ml HHN Q4HRT PRN PRN Reason: Shortness of Breath or Wheeze Stop: 09/11/18 15:14 Ascorbic Acid (Vitamin C) 500 mg PO DAILY [facility] Stop: 09/12/18 08:59 Last Admin: 07/14/18 08:27 Dose: 500 mg Atorvastatin Calcium (Lipitor) 20 mg PO HS [facility] Stop: 09/11/18 20:59 Last Admin: 07/13/18 21:05 Dose: 20 mg Dextrose (D50w) 50 ml IVP PRN PRN PRN Reason: Blood Glucose less than 70 Stop: 09/11/18 04:10 Dextrose (Glutose 40%) 18.75 gm PO PRN PRN PRN Reason: Blood Glucose less than 70 Stop: 09/11/18 04:10 Docusate Sodium (Colace) 100 mg PO BID [facility] Stop: 09/11/18 16:59 Last Admin: 07/14/18 08:27 Dose: 100 mg Famotidine (Pepcid) 20 mg PO DAILY [facility] Stop: 09/12/18 08:59 Last Admin: 07/14/18 08:27 Dose: 20 mg Folic Acid (Folate) 1 mg PO DAILY [facility] Stop: 09/12/18 08:59 Last Admin: 07/14/18 08:27 Dose: 1 mg Glucagon (Glucagen) 1 mg IM PRN PRN PRN Reason: Blood Glucose less than 70 Stop: 09/11/18 04:10 Piperacillin Sod/Tazobactam (Sod 2.25 gm/ Sodium Chloride) 50 mls @ 100 mls/hr IV Q6H [facility] Stop: 09/11/18 05:59 Last Admin: 07/14/18 06:05 Dose: Not Given Dextrose/Sodium Chloride (D5-0.45ns) 1,000 mls @ 50 mls/hr IV .Q20H [facility] Stop: 09/11/18 02:29 Last Admin: 07/13/18 04:03 Dose: 50 mls/hr Insulin Aspart (Novolog Insulin Sliding Scale) 0 units SUBQ Q6HR [facility]; Protocol Stop: 09/11/18 05:59 Last Admin: 07/14/18 06:05 Dose: Not Given Levothyroxine Sodium (Synthroid) 0.025 mg PO QDAC [facility] Stop: 09/12/18 07:29 Last Admin: 07/14/18 06:35 Dose: 0.025 mg Miscellaneous (Vancomycin Iv Per Pharmacy) 1 ea [facility] PRN PRN PRN Reason: PROTOCOL Stop: 09/10/18 23:40 Oxcarbazepine (Trileptal) 600 mg PO BID [facility] Stop: 09/11/18 16:59 Last Admin: 07/14/18 08:27 Dose: 600 mg Risperidone (Risperdal) 2 mg PO HS [facility] Stop: 09/11/18 20:59 Last Admin: 07/13/18 21:05 Dose: 2 mg Senna (Senna) 17.2 mg PO BID [facility] Stop: 09/11/18 16:59 Last Admin: 07/14/18 08:27 Dose: 17.2 mg Sevelamer Carbonate (Renvela) 800 mg PO TIDWM [facility] Stop: 09/11/18 16:59 Last Admin: 07/14/18 08:27 Dose: 800 mg Temazepam (Restoril) 15 mg PO HS PRN; Protocol PRN Reason: Insomnia Stop: 09/11/18 15:14 Vitamin B Complex/Vit C/Folic Acid (Vitamin B Complex W/Vitamin C) 1 tab PO DAILY [facility] Stop: 09/12/18 08:59 Last Admin: 07/14/18 08:27 Dose: 1 tab Zinc Sulfate (Zinc Sulfate) 220 mg PO DAILY [facility] Stop: 09/12/18 08:59 Last Admin: 07/14/18 08:27 Dose: 220 mg Lab - Result Diagrams 07/16/18 04:50 07/16/18 04:50 scheduled for HD today due to peripheral edema, persistent CHF on CXR Cr. more elevated w/ peripheral edema continue wound care Nutritional Asmnt/Malnutr-PDOC - Dietary Evaluation Malnutrition Findings (Please click <Entered> for more info): Nutritional Asmnt/Malnutrition Start: 07/13/18 13: 54 Text: Status: Complete Freq: Protocol: Document 07/13/18 13:56 MMERIN (Rec: 07/13/18 14:10 MMERIN NASH- [id number]) Nutritional Asmnt/Malnutrition Patient General Information Nutritional Screening Consult Diagnosis ESRD, anasarca Pertinent Medical Hx/Surgical Hx Seizure, hep C, diabetes, CAD, HTN, CVA, quadreplegia, Parkinsons, ESRD Subjective Information Consult received for "Diabetic ". Per nursing notes, patient receives hemodialysis MWF and patient is non-verbal. Patient with 2+ pitting edema. Current Diet Order/ Nutrition Support Renal diet Patient / S.O Not Indicated Pertinent Medications D50W, D5-0.45NS @50 ml/hr, Glucagon, Novolog Pertinent Labs (07/13) Na 134, BUN 48, Cr 2.9, glucose 41-137, Ca 8.2, BNP 515, albumin 2 Nutritional Hx/Data Height 1.73 m Height (Calculated Centimeters) 172.7 Current Weight (lbs) 113.852 kg Weight (Calculated Kilograms) 113.9 Weight (Calculated Grams) 036698.7 Talent Body Weight 140 % Talent Body Weight 179 Body Mass Index (BMI) 38.1 Recent Weight Change No Weight Status Morbidly Obese GI Symptoms GI Symptoms None Last BM 9/ x 1 Difficult in: Chewing Food Allergies No Cultural/Ethnic/Yazidi Belief none indicated Usual diet at home unknown Skin Integrity/Comment: Arian 10, ulceration on sacrum, left lower leg, abrasion on L heel, scar on right leg. Current %PO Good (75-100%) Estimated Nutritional Goals BEE in Kcals: Adj wt of IBW Calories/Kcals/Kg 27-32 kcal/kg (using 76.2kg ADj wt) Kcals Calculated ~0601-9802 kcal/day Protein g/k.2-1.5 gm/kg using Adj wt Protein Calculated ~90-115 gm/day Fluid: ml Per MD due to HD Nutritional Problem 2. Problem Problem Altered nutrition related lab values related to Etiology episodes of hypoglycemia, electrolyte imbalance aeb Signs/Symptoms: Na 134, glucose 41-137, Ca 8.2 1. Problem Problem Increased nutrient needs related to Etiology hypermetabolic state, impaired skin integrity aeb Signs/Symptoms: Pt on Hemodialysis and with multiple ulcerations Intervention/Recommendation Comments 1. Continue Renal diet as tolerated by patient. No need for DM restriction at this time due to hypoglycemia. 2. Consider fluid restriction due to HD, hyponatremia and edema. 3. Consider adding Prosource 1 packet with each meal for an additional 45gm protein. Expected Outcomes/Goals Expected Outcomes/Goals Oral intake >75% of meals, weight stable or trend toward ideal body weight, nutrition related labs WNL
[2018-07-17] MEDS: Atorvastatin Calcium 10 MG TAB PO SCH (21:53)
[2018-07-17] MEDS: D5-0.45NS 1,000 ML IV SCH (21:57)
--- NOTE | 2018-07-17 23:41 | Infectious Disease Prog Note ---
Infectious Disease Subjective - Review of Systems Service Date: 07/17/18 Subjective: There is no new change, no fever./ Infectious Disease Objective - Results Result Diagrams: 07/18/18 09:02 07/18/18 05:20 Recent Labs: Laboratory Last Values WBC 5.6 Th/cmm (4.8-10.8) 07/16/18 04:50 RBC 3.48 Mil/cmm (3.80-5.10) L 07/16/18 04:50 Hgb 10.2 gm/dL (12-16) L 07/16/18 04:50 Hct 30.8 % (41.0-60) L 07/16/18 04:50 MCV 88.6 fl (81-100) 07/16/18 04:50 MCH 29.2 pg (27.0-31.0) 07/16/18 04:50 MCHC Differential 33.0 pg (28.0-36.0) 07/16/18 04:50 RDW 17.8 % (11.5-20.0) 07/16/18 04:50 Plt Count 82 Th/cmm (150-400) L 07/16/18 04:50 MPV 6.5 fl 07/16/18 04:50 Add Manual Diff YES 07/16/18 04:50 Neutrophils % INSULATION SPRAYER 07/16/18 04:50 Band Neutrophils % 2 % (0-10) 07/14/18 05:00 Lymphocytes % INSULATION SPRAYER 07/16/18 04:50 Monocytes % INSULATION SPRAYER 07/16/18 04:50 Eosinophils % INSULATION SPRAYER 07/16/18 04:50 Basophils % INSULATION SPRAYER 07/16/18 04:50 Neutrophils (Manual) 33 % (40-80) L 07/16/18 04:50 Lymphocytes 52 % (20-50) H 07/16/18 04:50 Monocytes 15 % (2-10) H 07/16/18 04:50 Eosinophils 0 % (0-5) 07/14/18 05:00 Basophils 0 % (0-3) 07/14/18 05:00 Platelet Estimate DECREASED PLATELETS (NORMAL) 07/16/18 04:50 Sodium 136 mEq/L (136-145) 07/16/18 04:50 Potassium 4.4 mEq/L (3.5-5.1) 07/16/18 04:50 Chloride 103 mEq/L (98-107) 07/16/18 04:50 Carbon Dioxide 26.3 mEq/L (21.0-31.0) 07/16/18 04:50 Anion Gap 11.1 (7.0-16.0) 07/16/18 04:50 BUN 38 mg/dL (7-25) H 07/16/18 04:50 Creatinine 3.1 mg/dL (0.6-1.2) H 07/16/18 04:50 Est GFR ( Amer) 20.5 ml/min (>90) 07/16/18 04:50 Est GFR (Non-Af Amer) 17.0 ml/min 07/16/18 04:50 BUN/Creatinine Ratio 12.3 07/16/18 04:50 Glucose 107 mg/dL (70-105) H 07/16/18 04:50 POC Glucose 202 MG/DL (70 - 105) H 07/17/18 17:20 Whole Bld Lactic Acid 1.29 mmol/L (0.60-1.99) 07/12/18 20:50 Calcium 8.1 mg/dL (8.6-10.3) L 07/16/18 04:50 Total Bilirubin 0.3 mg/dL (0.3-1.0) 07/14/18 05:00 AST 14 U/L (13-39) 07/14/18 05:00 ALT 5 U/L (7-52) L 07/14/18 05:00 Alkaline Phosphatase 113 U/L (34-104) H 07/14/18 05:00 Creatine Kinase 20 U/L (30-223) L 07/12/18 20:50 Troponin I 0.49 ng/mL (0.01-0.05) H* 07/13/18 15:20 B-Natriuretic Peptide 515.0 pg/mL (5.0-100.0) H 07/13/18 04:00 Total Protein 4.9 gm/dL (6.0-8.3) L 07/14/18 05:00 Albumin 1.8 gm/dL (3.7-5.3) L 07/14/18 05:00 Globulin 3.1 gm/dL 07/14/18 05:00 Albumin/Globulin Ratio 0.6 (1.0-1.8) L 07/14/18 05:00 Triglycerides 53 mg/dL (<150) 07/13/18 04:00 Cholesterol 41 mg/dL (<200) 07/13/18 04:00 LDL Cholesterol Direct 11 mg/dL (75-193) L 07/13/18 04:00 HDL Cholesterol 24 mg/dL (23-92) 07/13/18 04:00 TSH 1.21 uIU/ml (0.34-5.60) 07/13/18 04:00 Urine Source [place] 07/12/18 20:50 Urine Color YELLOW 07/12/18 20:50 Urine Clarity CLOUDY (CLEAR) H 07/12/18 20:50 Urine pH 8.5 (4.6 - 8.0) 07/12/18 20:50 Ur Specific [place] 1.015 (1.005-1.030) 07/12/18 20:50 Urine Protein 100 mg/dL (NEGATIVE) H 07/12/18 20:50 Urine Glucose (UA) NEGATIVE mg/dL (NEGATIVE) 07/12/18 20:50 Urine Ketones NEGATIVE mg/dL (NEGATIVE) 07/12/18 20:50 Urine Blood TRACE (NEGATIVE) 07/12/18 20:50 Urine Nitrate NEGATIVE (NEGATIVE) 07/12/18 20:50 Urine Bilirubin NEGATIVE (NEGATIVE) 07/12/18 20:50 Urine Urobilinogen 0.2 E.U./dL (0.2 - 1.0) 07/12/18 20:50 Ur Leukocyte Esterase LARGE (NEGATIVE) H 07/12/18 20:50 Urine RBC 2-5 /hpf (0-5) 07/12/18 20:50 Urine WBC >100 /hpf (0-5) H 07/12/18 20:50 Ur Epithelial Cells MODERATE /lpf (FEW) 07/12/18 20:50 Urine Bacteria MANY /hpf (NONE SEEN) H 07/12/18 20:50 Random Vancomycin 29.7 ug/mL (5.0-40.0) 07/16/18 04:50 - Physical Exam Vitals and I&O: Vital Signs Temp 97.5 F 07/17/18 20:00 Pulse 104 07/17/18 20:00 Resp 19 07/17/18 20:00 BP 113/78 07/17/18 20:00 Pulse Ox 99 07/17/18 20:00 Intake & Output 07/17/18 07/17/18 07/18/18 06:59 18:59 06:59 Intake Total 3898.416 3401 Output Total 50 101 Balance 0240.547 8594 Weight (lbs) 106.594 kg 106.594 kg Intake: Intake, IV Amount 6139.919 6060 D5-0.45NS 1,000 ml @ 50 518.072 6418 mls/hr IV .Q20H [facility] Rx#: [id number] Oral 50 200 Output: Urine 50 100 Stool 1 Other: Weight Source Bedscale Bedscale Active Medications: Current Medications Acetaminophen (Tylenol) 650 mg PO Q6H PRN PRN Reason: Pain or Fever >101 Stop: 09/11/18 15:14 Acetaminophen/Hydrocodone Bitart ([place] 5mg/325mg) 1 tab PO Q6H PRN PRN Reason: Pain (Severe) Stop: 09/11/18 15:14 Last Admin: 07/16/18 14:22 Dose: 1 tab Albuterol/Ipratropium (Duoneb Neb) 3 ml HHN Q4HRT PRN PRN Reason: Shortness of Breath or Wheeze Stop: 09/11/18 15:14 Ascorbic Acid (Vitamin C) 500 mg PO DAILY [facility] Stop: 09/12/18 08:59 Last Admin: 07/17/18 08:30 Dose: 500 mg Atorvastatin Calcium (Lipitor) 20 mg PO HS [facility] Stop: 09/11/18 20:59 Last Admin: 07/17/18 21:53 Dose: 20 mg [place] Oil/[place] Balsam/Trypsin (Venelex) 1 appl TP DAILY [facility] Stop: 09/13/18 08:59 Last Admin: 07/17/18 08:32 Dose: 1 appl Dextrose (Glutose 40%) 18.75 gm PO PRN PRN PRN Reason: Blood Glucose less than 70 Stop: 09/11/18 04:10 Docusate Sodium (Colace) 100 mg PO BID [facility] Stop: 09/11/18 16:59 Last Admin: 07/17/18 17:34 Dose: 100 mg Famotidine (Pepcid) 20 mg PO DAILY [facility] Stop: 09/12/18 08:59 Last Admin: 07/17/18 08:30 Dose: 20 mg Folic Acid (Folate) 1 mg PO DAILY [facility] Stop: 09/12/18 08:59 Last Admin: 07/17/18 08:30 Dose: 1 mg Glucagon (Glucagen) 1 mg IM PRN PRN PRN Reason: Blood Glucose less than 70 Stop: 09/11/18 04:10 Dextrose/Sodium Chloride (D5-0.45ns) 1,000 mls @ 50 mls/hr IV .Q20H [facility] Stop: 09/11/18 02:29 Last Admin: 07/17/18 21:57 Dose: 50 mls/hr Insulin Aspart (Novolog Insulin Sliding Scale) 0 units SUBQ Q6HR [facility]; Protocol Stop: 09/11/18 05:59 Last Admin: 07/17/18 17:33 Dose: 4 units Lactobacillus Rhamnosus (Culturelle 15b) 1 each PO DAILY [facility] Stop: 09/13/18 13:59 Last Admin: 07/17/18 08:30 Dose: 1 each Levothyroxine Sodium (Synthroid) 0.025 mg PO QDAC [facility] Stop: 09/12/18 07:29 Last Admin: 07/17/18 06:48 Dose: 0.025 mg Miscellaneous (Probiotic Screen) 1 ea MC PRN PRN PRN Reason: PROTOCOL Stop: 09/13/18 11:44 Miscellaneous (Amikacin Iv Per Pharmacy) 1 ea PRN PRN PRN Reason: PROTOCOL Stop: 09/13/18 18:08 Miscellaneous (Vancomycin Iv Per Pharmacy) 1 ea MC PRN [facility] Stop: 09/14/18 18:59 Oxcarbazepine (Trileptal) 600 mg PO BID [facility] Stop: 09/11/18 16:59 Last Admin: 07/17/18 17:34 Dose: 600 mg Risperidone (Risperdal) 2 mg PO HS [facility] Stop: 09/11/18 20:59 Last Admin: 07/17/18 21:54 Dose: 2 mg Senna (Senna) 17.2 mg PO BID [facility] Stop: 09/11/18 16:59 Last Admin: 07/17/18 17:34 Dose: 17.2 mg Sevelamer Carbonate (Renvela) 800 mg PO TIDWM [facility] Stop: 09/11/18 16:59 Last Admin: 07/17/18 17:34 Dose: 800 mg Temazepam (Restoril) 15 mg PO HS PRN; Protocol PRN Reason: Insomnia Stop: 09/11/18 15:14 Vitamin B Complex/Vit C/Folic Acid (Vitamin B Complex W/Vitamin C) 1 tab PO DAILY [facility] Stop: 09/12/18 08:59 Last Admin: 07/17/18 08:30 Dose: 1 tab Zinc Sulfate (Zinc Sulfate) 220 mg PO DAILY [facility] Stop: 09/12/18 08:59 Last Admin: 07/17/18 08:30 Dose: 220 mg Infectious Disease Assmt/Plan - Assessment Assessment: 1. UTI 2. Staph CN in blood contaminant. 3. Hypoglycemia. 4. Diabetes mellitus type 1 with episodes of hypoglycemia. 5. Hypertension. 6. Anemia of chronic disease. 7. Coronary artery disease, 8. CHF.. 9. Anasarca 10. 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 11. sacral stage 4 wound - Plan Plan: start amikacin and dc other antibiotics. Nutritional Asmnt/Malnutr-PDOC - Dietary Evaluation Malnutrition Findings (Please click <Entered> for more info): Nutritional Asmnt/Malnutrition Start: 07/13/18 13: 54 Text: Status: Complete Freq: Protocol: Document 07/13/18 13:56 MMULNACHO (Rec: 07/13/18 14:10 MMULNACHO NASH- [id number]) Nutritional Asmnt/Malnutrition Patient General Information Nutritional Screening Consult Diagnosis ESRD, anasarca Pertinent Medical Hx/Surgical Hx Seizure, hep C, diabetes, CAD, HTN, CVA, quadreplegia, Parkinsons, ESRD Subjective Information Consult received for "Diabetic ". Per nursing notes, patient receives hemodialysis MWF and patient is non-verbal. Patient with 2+ pitting edema. Current Diet Order/ Nutrition Support Renal diet Patient / S.O Not Indicated Pertinent Medications D50W, D5-0.45NS @50 ml/hr, Glucagon, Novolog Pertinent Labs (07/13) Na 134, BUN 48, Cr 2.9, glucose 41-137, Ca 8.2, BNP 515, albumin 2 Nutritional Hx/Data Height 1.73 m Height (Calculated Centimeters) 172.7 Current Weight (lbs) 113.852 kg Weight (Calculated Kilograms) 113.9 Weight (Calculated Grams) 503254.7 [place] Body Weight 140 % [place] Body Weight 179 Body Mass Index (BMI) 38.1 Recent Weight Change No Weight Status Morbidly Obese GI Symptoms GI Symptoms None Last BM 9/ x 1 Difficult in: Chewing Food Allergies No Cultural/Ethnic/Gnosticist Belief none indicated Usual diet at home unknown Skin Integrity/Comment: Arian 10, ulceration on sacrum, left lower leg, abrasion on L heel, scar on right leg. Current %PO Good (75-100%) Estimated Nutritional Goals BEE in Kcals: Adj wt of IBW Calories/Kcals/Kg 27-32 kcal/kg (using 76.2kg ADj wt) Kcals Calculated ~9594-7245 kcal/day Protein g/k.2-1.5 gm/kg using Adj wt Protein Calculated ~90-115 gm/day Fluid: ml Per MD due to HD Nutritional Problem 2. Problem Problem Altered nutrition related lab values related to Etiology episodes of hypoglycemia, electrolyte imbalance aeb Signs/Symptoms: Na 134, glucose 41-137, Ca 8.2 1. Problem Problem Increased nutrient needs related to Etiology hypermetabolic state, impaired skin integrity aeb Signs/Symptoms: Pt on Hemodialysis and with multiple ulcerations Intervention/Recommendation Comments 1. Continue Renal diet as tolerated by patient. No need for DM restriction at this time due to hypoglycemia. 2. Consider fluid restriction due to HD, hyponatremia and edema. 3. Consider adding Prosource 1 packet with each meal for an additional 45gm protein. Expected Outcomes/Goals Expected Outcomes/Goals Oral intake >75% of meals, weight stable or trend toward ideal body weight, nutrition related labs WNL
[2018-07-18] MEDS: INSULIN ASPART SLIDING SCALE 100 UNITS/ML UNIT SUBQ SCH ×4 (00:11→18:12)
[2018-07-18] MEDS: Levothyroxine 0.025 Mg Tab PO SCH (06:41)
[2018-07-18 06:47] LABS: ALB/GLOB RATIO 0.6 (1.0-1.8); ALBUMIN < 1.5 gm/dL (3.7-5.3); ALKALINE PHOSPHATASE 80 U/L (34-104); ANION GAP 11.4 (7.0-16.0); BILIRUBIN,TOTAL 0.3 mg/dL (0.3-1.0); BUN - UREA NITROGEN 21 mg/dL (7-25); CALCIUM SERUM 7.6 mg/dL (8.6-10.3); CARBON DIOXIDE 22.5 mEq/L (21.0-31.0); CHLORIDE 105 mEq/L (98-107); CREATININE - SERUM 2.5 mg/dL (0.6-1.2); GFR AFRICAN-AMERICAN 26.3 ml/min (>90); GFR NON AFRICAN-AMERICAN 21.8 ml/min; GLUCOSE 199 mg/dL (70-105); POTASSIUM SERUM 3.9 mEq/L (3.5-5.1); SGOT 18 U/L (13-39); SGPT/ALT 7 U/L (7-52); SODIUM SERUM 135 mEq/L (136-145)
[2018-07-18] MEDS: Vitamin B Complex w/Vitamin C Tab PO SCH (08:42)
[2018-07-18] MEDS: Lactobacillus Rhamnosus GG 15 Billion CFU CAP.SPRINK PO SCH (08:42)
[2018-07-18] MEDS: Docusate Sodium 100 mg/10 mL UD PO SCH ×2 (08:42→17:29)
[2018-07-18 09:09] LABS: HEMOGLOBIN 9.5 gm/dL (12-16); MEAN CORPUSCULAR HEMOGLOBIN 28.8 pg (27.0-31.0); MEAN CORPUSCULAR HGB CONC 32.7 pg (28.0-36.0); MEAN PLATELET VOLUME 7.7 fl; PLATELET COUNT 75 Th/cmm (150-400); RED CELL DISTRIBUTION WIDTH 17.1 % (11.5-20.0); WHITE BLOOD COUNT 5.6 Th/cmm (4.8-10.8)
[2018-07-18 09:57] LABS: BAND NEUTROPHILE 1 % (0-10); LYMPHOCYTE 36 % (20-50); NEUTROPHILS 52 % (40-80)
[2018-07-18 09:58] LABS: BASOPHIL 0 % (0-3); EOSINOPHIL 0 % (0-5); MONOCYTE 11 % (2-10); PLATELET ESTIMATE DECREASED PLATELETS (NORMAL)
--- NOTE | 2018-07-18 10:08 | General Progress Note ---
Subjective - Review of Systems Service Date: 07/18/18 Events since last encounter: chart reviewed positive blood culture I did debridement of huge sacral decubitus ulcer on this bed bound patient at [facility] 2 weeks ago she is incontinent, aphasic, bedridden has no family who can sign consent for surgery I have recommended diverting colostomy at [facility], will need to document medical necessity by 2 MDs to proceed Objective - Results Result Diagrams: 07/18/18 09:02 07/18/18 05:20 Recent Labs: Laboratory Last Values WBC 5.6 Th/cmm (4.8-10.8) 07/18/18 09:02 RBC 3.30 Mil/cmm (3.80-5.10) L 07/18/18 09:02 Hgb 9.5 gm/dL (12-16) L 07/18/18 09:02 Hct 29.0 % (41.0-60) L 07/18/18 09:02 MCV 88.0 fl (81-100) 07/18/18 09:02 MCH 28.8 pg (27.0-31.0) 07/18/18 09:02 MCHC Differential 32.7 pg (28.0-36.0) 07/18/18 09:02 RDW 17.1 % (11.5-20.0) 07/18/18 09:02 Plt Count 75 Th/cmm (150-400) L 07/18/18 09:02 MPV 7.7 fl 07/18/18 09:02 Add Manual Diff YES 07/18/18 09:02 Neutrophils % BUSHLER 07/16/18 04:50 Band Neutrophils % 1 % (0-10) 07/18/18 09:02 Lymphocytes % BUSHLER 07/16/18 04:50 Monocytes % BUSHLER 07/16/18 04:50 Eosinophils % BUSHLER 07/16/18 04:50 Basophils % BUSHLER 07/16/18 04:50 Neutrophils (Manual) 52 % (40-80) 07/18/18 09:02 Lymphocytes 36 % (20-50) 07/18/18 09:02 Monocytes 11 % (2-10) H 07/18/18 09:02 Eosinophils 0 % (0-5) 07/18/18 09:02 Basophils 0 % (0-3) 07/18/18 09:02 Platelet Estimate DECREASED PLATELETS (NORMAL) 07/18/18 09:02 Sodium 135 mEq/L (136-145) L 07/18/18 05:20 Potassium 3.9 mEq/L (3.5-5.1) 07/18/18 05:20 Chloride 105 mEq/L (98-107) 07/18/18 05:20 Carbon Dioxide 22.5 mEq/L (21.0-31.0) 07/18/18 05:20 Anion Gap 11.4 (7.0-16.0) 07/18/18 05:20 BUN 21 mg/dL (7-25) 07/18/18 05:20 Creatinine 2.5 mg/dL (0.6-1.2) H 07/18/18 05:20 Est GFR ( Amer) 26.3 ml/min (>90) 07/18/18 05:20 Est GFR (Non-Af Amer) 21.8 ml/min 07/18/18 05:20 BUN/Creatinine Ratio 8.4 07/18/18 05:20 Glucose 199 mg/dL (70-105) H 07/18/18 05:20 POC Glucose 127 MG/DL (70 - 105) H 07/18/18 05:25 Whole Bld Lactic Acid 1.29 mmol/L (0.60-1.99) 07/12/18 20:50 Calcium 7.6 mg/dL (8.6-10.3) L 07/18/18 05:20 Total Bilirubin 0.3 mg/dL (0.3-1.0) 07/18/18 05:20 AST 18 U/L (13-39) 07/18/18 05:20 ALT 7 U/L (7-52) 07/18/18 05:20 Alkaline Phosphatase 80 U/L (34-104) 07/18/18 05:20 Creatine Kinase 20 U/L (30-223) L 07/12/18 20:50 Troponin I 0.49 ng/mL (0.01-0.05) H* 07/13/18 15:20 B-Natriuretic Peptide 515.0 pg/mL (5.0-100.0) H 07/13/18 04:00 Total Protein 4.0 gm/dL (6.0-8.3) L 07/18/18 05:20 Albumin < 1.5 gm/dL (3.7-5.3) L 07/18/18 05:20 Globulin 2.5 gm/dL 07/18/18 05:20 Albumin/Globulin Ratio 0.6 (1.0-1.8) L 07/18/18 05:20 Triglycerides 53 mg/dL (<150) 07/13/18 04:00 Cholesterol 41 mg/dL (<200) 07/13/18 04:00 LDL Cholesterol Direct 11 mg/dL (75-193) L 07/13/18 04:00 HDL Cholesterol 24 mg/dL (23-92) 07/13/18 04:00 TSH 1.21 uIU/ml (0.34-5.60) 07/13/18 04:00 Urine Source [place] 07/12/18 20:50 Urine Color YELLOW 07/12/18 20:50 Urine Clarity CLOUDY (CLEAR) H 07/12/18 20:50 Urine pH 8.5 (4.6 - 8.0) 07/12/18 20:50 Ur Specific [place] 1.015 (1.005-1.030) 07/12/18 20:50 Urine Protein 100 mg/dL (NEGATIVE) H 07/12/18 20:50 Urine Glucose (UA) NEGATIVE mg/dL (NEGATIVE) 07/12/18 20:50 Urine Ketones NEGATIVE mg/dL (NEGATIVE) 07/12/18 20:50 Urine Blood TRACE (NEGATIVE) 07/12/18 20:50 Urine Nitrate NEGATIVE (NEGATIVE) 07/12/18 20:50 Urine Bilirubin NEGATIVE (NEGATIVE) 07/12/18 20:50 Urine Urobilinogen 0.2 E.U./dL (0.2 - 1.0) 07/12/18 20:50 Ur Leukocyte Esterase LARGE (NEGATIVE) H 07/12/18 20:50 Urine RBC 2-5 /hpf (0-5) 07/12/18 20:50 Urine WBC >100 /hpf (0-5) H 07/12/18 20:50 Ur Epithelial Cells MODERATE /lpf (FEW) 07/12/18 20:50 Urine Bacteria MANY /hpf (NONE SEEN) H 07/12/18 20:50 Random Vancomycin 27.7 ug/mL (5.0-40.0) 07/18/18 09:02 - Physical Exam Vitals and I&O: Vital Signs Temp 97.1 F 07/18/18 08:00 Pulse 71 07/18/18 08:00 Resp 18 07/18/18 08:00 BP 112/80 07/18/18 08:00 Pulse Ox 99 07/18/18 08:00 Intake & Output 07/17/18 07/18/18 07/18/18 18:59 06:59 18:59 Intake Total 1200 120 Output Total 101 3700 Balance 1099 -3580 Weight (lbs) 106.594 kg 112.037 kg Intake: Intake, IV Amount 1000 D5-0.45NS 1,000 ml @ 50 1000 mls/hr IV .Q20H [facility] Rx#: [id number] Oral 200 120 Output: Urine 100 200 Stool 1 Other 3500 Other: # Bowel Movements 1 Weight Source Bedscale Bedscale Active Medications: Current Medications Acetaminophen (Tylenol) 650 mg PO Q6H PRN PRN Reason: Pain or Fever >101 Stop: 09/11/18 15:14 Acetaminophen/Hydrocodone Bitart ([place] 5mg/325mg) 1 tab PO Q6H PRN PRN Reason: Pain (Severe) Stop: 09/11/18 15:14 Last Admin: 07/16/18 14:22 Dose: 1 tab Albuterol/Ipratropium (Duoneb Neb) 3 ml HHN Q4HRT PRN PRN Reason: Shortness of Breath or Wheeze Stop: 09/11/18 15:14 Ascorbic Acid (Vitamin C) 500 mg PO DAILY [facility] Stop: 09/12/18 08:59 Last Admin: 07/18/18 08:42 Dose: 500 mg Atorvastatin Calcium (Lipitor) 20 mg PO HS [facility] Stop: 09/11/18 20:59 Last Admin: 07/17/18 21:53 Dose: 20 mg [place] Oil/[place] Balsam/Trypsin (Venelex) 1 appl TP DAILY [facility] Stop: 09/13/18 08:59 Last Admin: 07/17/18 08:32 Dose: 1 appl Dextrose (Glutose 40%) 18.75 gm PO PRN PRN PRN Reason: Blood Glucose less than 70 Stop: 09/11/18 04:10 Docusate Sodium (Colace) 100 mg PO BID [facility] Stop: 09/11/18 16:59 Last Admin: 07/18/18 08:42 Dose: 100 mg Famotidine (Pepcid) 20 mg PO DAILY [facility] Stop: 09/12/18 08:59 Last Admin: 07/18/18 08:42 Dose: 20 mg Folic Acid (Folate) 1 mg PO DAILY [facility] Stop: 09/12/18 08:59 Last Admin: 07/18/18 08:42 Dose: 1 mg Glucagon (Glucagen) 1 mg IM PRN PRN PRN Reason: Blood Glucose less than 70 Stop: 09/11/18 04:10 Dextrose/Sodium Chloride (D5-0.45ns) 1,000 mls @ 50 mls/hr IV .Q20H [facility] Stop: 09/11/18 02:29 Last Admin: 07/17/18 21:57 Dose: 50 mls/hr Amikacin Sulfate 500 mg/ (Dextrose) 102 mls @ 100 mls/hr IV 1730 [facility] Stop: 07/18/18 19:30 Insulin Aspart (Novolog Insulin Sliding Scale) 0 units SUBQ Q6HR [facility]; Protocol Stop: 09/11/18 05:59 Last Admin: 07/18/18 06:08 Dose: Not Given Lactobacillus Rhamnosus (Culturelle 15b) 1 each PO DAILY [facility] Stop: 09/13/18 13:59 Last Admin: 07/18/18 08:42 Dose: 1 each Levothyroxine Sodium (Synthroid) 0.025 mg PO QDAC [facility] Stop: 09/12/18 07:29 Last Admin: 07/18/18 06:41 Dose: 0.025 mg Miscellaneous (Probiotic Screen) 1 ea MC PRN PRN PRN Reason: PROTOCOL Stop: 09/13/18 11:44 Miscellaneous (Amikacin Iv Per Pharmacy) 1 ea MC PRN PRN PRN Reason: PROTOCOL Stop: 09/13/18 18:08 Miscellaneous (Vancomycin Iv Per Pharmacy) 1 ea MC PRN [facility] Stop: 09/14/18 18:59 Oxcarbazepine (Trileptal) 600 mg PO BID [facility] Stop: 09/11/18 16:59 Last Admin: 07/18/18 08:42 Dose: 600 mg Risperidone (Risperdal) 2 mg PO HS [facility] Stop: 09/11/18 20:59 Last Admin: 07/17/18 21:54 Dose: 2 mg Senna (Senna) 17.2 mg PO BID [facility] Stop: 09/11/18 16:59 Last Admin: 07/18/18 08:42 Dose: 17.2 mg Sevelamer Carbonate (Renvela) 800 mg PO TIDWM [facility] Stop: 09/11/18 16:59 Last Admin: 07/18/18 08:42 Dose: 800 mg Temazepam (Restoril) 15 mg PO HS PRN; Protocol PRN Reason: Insomnia Stop: 09/11/18 15:14 Vitamin B Complex/Vit C/Folic Acid (Vitamin B Complex W/Vitamin C) 1 tab PO DAILY [facility] Stop: 09/12/18 08:59 Last Admin: 07/18/18 08:42 Dose: 1 tab Zinc Sulfate (Zinc Sulfate) 220 mg PO DAILY [facility] Stop: 09/12/18 08:59 Last Admin: 07/18/18 08:42 Dose: 220 mg General: Alert, Mild distress HEENT: Atraumatic, EOMI Neck: Supple, +2 carotid pulse wo bruit Cardiovascular: Regular rate, Normal S1, Normal S2 Lungs: Other (scattered rales) Abdomen: Bowel sounds, Soft Extremities: Edema ((+) 2-3 edema), Other ((+) 3 bipedal edema) Neurological: Sensation intact Skin: no Rash Psych/Mental Status: Mood NL Nutritional Asmnt/Malnutr-PDOC - Dietary Evaluation Malnutrition Findings (Please click <Entered> for more info): Nutritional Asmnt/Malnutrition Start: 07/13/18 13: 54 Text: Status: Complete Freq: Protocol: Document 07/13/18 13:56 ALDAIR (Rec: 07/13/18 14:10 MMULNACHO NASH FN) Nutritional Asmnt/Malnutrition Patient General Information Nutritional Screening Consult Diagnosis ESRD, anasarca Pertinent Medical Hx/Surgical Hx Seizure, hep C, diabetes, CAD, HTN, CVA, quadreplegia, Parkinsons, ESRD Subjective Information Consult received for "Diabetic ". Per nursing notes, patient receives hemodialysis MWF and patient is non-verbal. Patient with 2+ pitting edema. Current Diet Order/ Nutrition Support Renal diet Patient / S.O Not Indicated Pertinent Medications D50W, D5-0.45NS @50 ml/hr, Glucagon, Novolog Pertinent Labs (07/13) Na 134, BUN 48, Cr 2.9, glucose 41-137, Ca 8.2, BNP 515, albumin 2 Nutritional Hx/Data Height 1.73 m Height (Calculated Centimeters) 172.7 Current Weight (lbs) 113.852 kg Weight (Calculated Kilograms) 113.9 Weight (Calculated Grams) 998563.7 [place] Body Weight 140 % [place] Body Weight 179 Body Mass Index (BMI) 38.1 Recent Weight Change No Weight Status Morbidly Obese GI Symptoms GI Symptoms None Last BM 9/3 x 1 Difficult in: Chewing Food Allergies No Cultural/Ethnic/Jew Belief none indicated Usual diet at home unknown Skin Integrity/Comment: Arian 10, ulceration on sacrum, left lower leg, abrasion on L heel, scar on right leg. Current %PO Good (75-100%) Estimated Nutritional Goals BEE in Kcals: Adj wt of IBW Calories/Kcals/Kg 27-32 kcal/kg (using 76.2kg ADj wt) Kcals Calculated ~9750-0231 kcal/day Protein g/k.2-1.5 gm/kg using Adj wt Protein Calculated ~90-115 gm/day Fluid: ml Per MD due to HD Nutritional Problem 2. Problem Problem Altered nutrition related lab values related to Etiology episodes of hypoglycemia, electrolyte imbalance aeb Signs/Symptoms: Na 134, glucose 41-137, Ca 8.2 1. Problem Problem Increased nutrient needs related to Etiology hypermetabolic state, impaired skin integrity aeb Signs/Symptoms: Pt on Hemodialysis and with multiple ulcerations Intervention/Recommendation Comments 1. Continue Renal diet as tolerated by patient. No need for DM restriction at this time due to hypoglycemia. 2. Consider fluid restriction due to HD, hyponatremia and edema. 3. Consider adding Prosource 1 packet with each meal for an additional 45gm protein. Expected Outcomes/Goals Expected Outcomes/Goals Oral intake >75% of meals, weight stable or trend toward ideal body weight, nutrition related labs WNL
[2018-07-18] MEDS: Venelex 60gm Tube TP SCH (13:06)
--- NOTE | 2018-07-18 14:30 | General Progress Note ---
Subjective - Review of Systems Service Date: 07/18/18 Subjective: more awake, mod SOB, verbal Objective - Results Result Diagrams: 07/18/18 09:02 07/18/18 05:20 Recent Labs: Laboratory Last Values WBC 5.6 Th/cmm (4.8-10.8) 07/18/18 09:02 RBC 3.30 Mil/cmm (3.80-5.10) L 07/18/18 09:02 Hgb 9.5 gm/dL (12-16) L 07/18/18 09:02 Hct 29.0 % (41.0-60) L 07/18/18 09:02 MCV 88.0 fl (81-100) 07/18/18 09:02 MCH 28.8 pg (27.0-31.0) 07/18/18 09:02 MCHC Differential 32.7 pg (28.0-36.0) 07/18/18 09:02 RDW 17.1 % (11.5-20.0) 07/18/18 09:02 Plt Count 75 Th/cmm (150-400) L 07/18/18 09:02 MPV 7.7 fl 07/18/18 09:02 Add Manual Diff YES 07/18/18 09:02 Neutrophils % CT SCAN TECH 07/16/18 04:50 Band Neutrophils % 1 % (0-10) 07/18/18 09:02 Lymphocytes % CT SCAN TECH 07/16/18 04:50 Monocytes % CT SCAN TECH 07/16/18 04:50 Eosinophils % CT SCAN TECH 07/16/18 04:50 Basophils % CT SCAN TECH 07/16/18 04:50 Neutrophils (Manual) 52 % (40-80) 07/18/18 09:02 Lymphocytes 36 % (20-50) 07/18/18 09:02 Monocytes 11 % (2-10) H 07/18/18 09:02 Eosinophils 0 % (0-5) 07/18/18 09:02 Basophils 0 % (0-3) 07/18/18 09:02 Platelet Estimate DECREASED PLATELETS (NORMAL) 07/18/18 09:02 Sodium 135 mEq/L (136-145) L 07/18/18 05:20 Potassium 3.9 mEq/L (3.5-5.1) 07/18/18 05:20 Chloride 105 mEq/L (98-107) 07/18/18 05:20 Carbon Dioxide 22.5 mEq/L (21.0-31.0) 07/18/18 05:20 Anion Gap 11.4 (7.0-16.0) 07/18/18 05:20 BUN 21 mg/dL (7-25) 07/18/18 05:20 Creatinine 2.5 mg/dL (0.6-1.2) H 07/18/18 05:20 Est GFR ( Amer) 26.3 ml/min (>90) 07/18/18 05:20 Est GFR (Non-Af Amer) 21.8 ml/min 07/18/18 05:20 BUN/Creatinine Ratio 8.4 07/18/18 05:20 Glucose 199 mg/dL (70-105) H 07/18/18 05:20 POC Glucose 173 MG/DL (70 - 105) H 07/18/18 11:30 Whole Bld Lactic Acid 1.29 mmol/L (0.60-1.99) 07/12/18 20:50 Calcium 7.6 mg/dL (8.6-10.3) L 07/18/18 05:20 Total Bilirubin 0.3 mg/dL (0.3-1.0) 07/18/18 05:20 AST 18 U/L (13-39) 07/18/18 05:20 ALT 7 U/L (7-52) 07/18/18 05:20 Alkaline Phosphatase 80 U/L (34-104) 07/18/18 05:20 Creatine Kinase 20 U/L (30-223) L 07/12/18 20:50 Troponin I 0.49 ng/mL (0.01-0.05) H* 07/13/18 15:20 B-Natriuretic Peptide 515.0 pg/mL (5.0-100.0) H 07/13/18 04:00 Total Protein 4.0 gm/dL (6.0-8.3) L 07/18/18 05:20 Albumin < 1.5 gm/dL (3.7-5.3) L 07/18/18 05:20 Globulin 2.5 gm/dL 07/18/18 05:20 Albumin/Globulin Ratio 0.6 (1.0-1.8) L 07/18/18 05:20 Triglycerides 53 mg/dL (<150) 07/13/18 04:00 Cholesterol 41 mg/dL (<200) 07/13/18 04:00 LDL Cholesterol Direct 11 mg/dL (75-193) L 07/13/18 04:00 HDL Cholesterol 24 mg/dL (23-92) 07/13/18 04:00 TSH 1.21 uIU/ml (0.34-5.60) 07/13/18 04:00 Urine Source [place] 07/12/18 20:50 Urine Color YELLOW 07/12/18 20:50 Urine Clarity CLOUDY (CLEAR) H 07/12/18 20:50 Urine pH 8.5 (4.6 - 8.0) 07/12/18 20:50 Ur Specific [place] 1.015 (1.005-1.030) 07/12/18 20:50 Urine Protein 100 mg/dL (NEGATIVE) H 07/12/18 20:50 Urine Glucose (UA) NEGATIVE mg/dL (NEGATIVE) 07/12/18 20:50 Urine Ketones NEGATIVE mg/dL (NEGATIVE) 07/12/18 20:50 Urine Blood TRACE (NEGATIVE) 07/12/18 20:50 Urine Nitrate NEGATIVE (NEGATIVE) 07/12/18 20:50 Urine Bilirubin NEGATIVE (NEGATIVE) 07/12/18 20:50 Urine Urobilinogen 0.2 E.U./dL (0.2 - 1.0) 07/12/18 20:50 Ur Leukocyte Esterase LARGE (NEGATIVE) H 07/12/18 20:50 Urine RBC 2-5 /hpf (0-5) 07/12/18 20:50 Urine WBC >100 /hpf (0-5) H 07/12/18 20:50 Ur Epithelial Cells MODERATE /lpf (FEW) 07/12/18 20:50 Urine Bacteria MANY /hpf (NONE SEEN) H 07/12/18 20:50 Random Vancomycin 27.7 ug/mL (5.0-40.0) 07/18/18 09:02 - Physical Exam Vitals and I&O: Vital Signs Temp 97.3 F 07/18/18 12:00 Pulse 78 07/18/18 12:00 Resp 18 07/18/18 12:00 BP 116/86 07/18/18 12:00 Pulse Ox 98 07/18/18 12:00 Intake & Output 07/17/18 07/18/18 07/18/18 18:59 06:59 18:59 Intake Total 1200 120 Output Total 101 3700 Balance 1099 -3580 Weight (lbs) 106.594 kg 112.037 kg Intake: Intake, IV Amount 1000 D5-0.45NS 1,000 ml @ 50 1000 mls/hr IV .Q20H VIKTORIA Rx#: [id number] Oral 200 120 Output: Urine 100 200 Stool 1 Other 3500 Other: # Bowel Movements 1 Weight Source Bedscale Bedscale Active Medications: Current Medications Acetaminophen (Tylenol) 650 mg PO Q6H PRN PRN Reason: Pain or Fever >101 Stop: 09/11/18 15:14 Acetaminophen/Hydrocodone Bitart ([place] 5mg/325mg) 1 tab PO Q6H PRN PRN Reason: Pain (Severe) Stop: 09/11/18 15:14 Last Admin: 07/16/18 14:22 Dose: 1 tab Albuterol/Ipratropium (Duoneb Neb) 3 ml HHN Q4HRT PRN PRN Reason: Shortness of Breath or Wheeze Stop: 09/11/18 15:14 Ascorbic Acid (Vitamin C) 500 mg PO DAILY COUNT INCLUDES THE [facility] Stop: 09/12/18 08:59 Last Admin: 07/18/18 08:42 Dose: 500 mg Atorvastatin Calcium (Lipitor) 20 mg PO HS COUNT INCLUDES THE [facility] Stop: 09/11/18 20:59 Last Admin: 07/17/18 21:53 Dose: 20 mg [place] Oil/Slovenian Balsam/Trypsin (Venelex) 1 appl TP DAILY COUNT INCLUDES THE [facility] Stop: 09/13/18 08:59 Last Admin: 07/18/18 13:06 Dose: 1 appl Dextrose (Glutose 40%) 18.75 gm PO PRN PRN PRN Reason: Blood Glucose less than 70 Stop: 09/11/18 04:10 Docusate Sodium (Colace) 100 mg PO BID COUNT INCLUDES THE [facility] Stop: 09/11/18 16:59 Last Admin: 07/18/18 08:42 Dose: 100 mg Famotidine (Pepcid) 20 mg PO DAILY VIKTORIA Stop: 09/12/18 08:59 Last Admin: 07/18/18 08:42 Dose: 20 mg Folic Acid (Folate) 1 mg PO DAILY VIKTORIA Stop: 09/12/18 08:59 Last Admin: 07/18/18 08:42 Dose: 1 mg Glucagon (Glucagen) 1 mg IM PRN PRN PRN Reason: Blood Glucose less than 70 Stop: 09/11/18 04:10 Amikacin Sulfate 500 mg/ (Dextrose) 102 mls @ 100 mls/hr IV 1730 VIKTORIA Stop: 07/18/18 19:30 Insulin Aspart (Novolog Insulin Sliding Scale) 0 units SUBQ Q6HR VIKTORIA; Protocol Stop: 09/11/18 05:59 Last Admin: 07/18/18 11:45 Dose: 2 units Lactobacillus Rhamnosus (Culturelle 15b) 1 each PO DAILY VIKTORIA Stop: 09/13/18 13:59 Last Admin: 07/18/18 08:42 Dose: 1 each Levothyroxine Sodium (Synthroid) 0.025 mg PO QDAC VIKTORIA Stop: 09/12/18 07:29 Last Admin: 07/18/18 06:41 Dose: 0.025 mg Miscellaneous (Probiotic Screen) 1 ea PRN PRN PRN Reason: PROTOCOL Stop: 09/13/18 11:44 Miscellaneous (Amikacin Iv Per Pharmacy) 1 ea PRN PRN PRN Reason: PROTOCOL Stop: 09/13/18 18:08 Miscellaneous (Vancomycin Iv Per Pharmacy) 1 ea MC PRN VIKTORIA Stop: 09/14/18 18:59 Oxcarbazepine (Trileptal) 600 mg PO BID VIKTORIA Stop: 09/11/18 16:59 Last Admin: 07/18/18 08:42 Dose: 600 mg Risperidone (Risperdal) 2 mg PO HS VIKTORIA Stop: 09/11/18 20:59 Last Admin: 07/17/18 21:54 Dose: 2 mg Senna (Senna) 17.2 mg PO BID VIKTORIA Stop: 09/11/18 16:59 Last Admin: 07/18/18 08:42 Dose: 17.2 mg Sevelamer Carbonate (Renvela) 800 mg PO TIDWM VIKTORIA Stop: 09/11/18 16:59 Last Admin: 07/18/18 13:04 Dose: 800 mg Temazepam (Restoril) 15 mg PO HS PRN; Protocol PRN Reason: Insomnia Stop: 09/11/18 15:14 Vitamin B Complex/Vit C/Folic Acid (Vitamin B Complex W/Vitamin C) 1 tab PO DAILY VIKTORIA Stop: 09/12/18 08:59 Last Admin: 07/18/18 08:42 Dose: 1 tab Warfarin Sodium (Coumadin Per Pharmacy) 1 ea MC PRN VIKTORIA; Protocol Stop: 09/16/18 14:29 Zinc Sulfate (Zinc Sulfate) 220 mg PO DAILY VIKTORIA Stop: 09/12/18 08:59 Last Admin: 07/18/18 08:42 Dose: 220 mg General: Alert, Mild distress HEENT: Atraumatic, EOMI Neck: Supple, +2 carotid pulse wo bruit Cardiovascular: Regular rate, Normal S1, Normal S2 Lungs: Other (scattered rales) Abdomen: Bowel sounds, Soft Extremities: Edema ((+) 2-3 edema), Other ((+) 3 bipedal edema) Neurological: Sensation intact Skin: no Rash Psych/Mental Status: Mood NL Assessment/Plan - Assessment Assessment: ESRD on HD Hypothyroid Parkinson Ds. Fnc Quad Hep B,C GERD Left Calf ulcer Sacral Decub ulcer Cholelithiasis B/L HAP w/ effusions Peripheral edema Left SFV DVT - Plan Plan: Lab - Result Diagrams 07/14/18 05:00 07/14/18 05:00 Current Medications Acetaminophen (Tylenol) 650 mg PO Q6H PRN PRN Reason: Pain or Fever >101 Stop: 09/11/18 15:14 Acetaminophen/Hydrocodone Bitart ([place] 5mg/325mg) 1 tab PO Q6H PRN PRN Reason: Pain (Severe) Stop: 09/11/18 15:14 Albuterol/Ipratropium (Duoneb Neb) 3 ml HHN Q4HRT PRN PRN Reason: Shortness of Breath or Wheeze Stop: 09/11/18 15:14 Ascorbic Acid (Vitamin C) 500 mg PO DAILY VIKTORIA Stop: 09/12/18 08:59 Last Admin: 07/14/18 08:27 Dose: 500 mg Atorvastatin Calcium (Lipitor) 20 mg PO HS VIKTORIA Stop: 09/11/18 20:59 Last Admin: 07/13/18 21:05 Dose: 20 mg Dextrose (D50w) 50 ml IVP PRN PRN PRN Reason: Blood Glucose less than 70 Stop: 09/11/18 04:10 Dextrose (Glutose 40%) 18.75 gm PO PRN PRN PRN Reason: Blood Glucose less than 70 Stop: 09/11/18 04:10 Docusate Sodium (Colace) 100 mg PO BID COUNT INCLUDES THE [facility] Stop: 09/11/18 16:59 Last Admin: 07/14/18 08:27 Dose: 100 mg Famotidine (Pepcid) 20 mg PO DAILY COUNT INCLUDES THE [facility] Stop: 09/12/18 08:59 Last Admin: 07/14/18 08:27 Dose: 20 mg Folic Acid (Folate) 1 mg PO DAILY COUNT INCLUDES THE [facility] Stop: 09/12/18 08:59 Last Admin: 07/14/18 08:27 Dose: 1 mg Glucagon (Glucagen) 1 mg IM PRN PRN PRN Reason: Blood Glucose less than 70 Stop: 09/11/18 04:10 Piperacillin Sod/Tazobactam (Sod 2.25 gm/ Sodium Chloride) 50 mls @ 100 mls/hr IV Q6H COUNT INCLUDES THE [facility] Stop: 09/11/18 05:59 Last Admin: 07/14/18 06:05 Dose: Not Given Dextrose/Sodium Chloride (D5-0.45ns) 1,000 mls @ 50 mls/hr IV .Q20H COUNT INCLUDES THE [facility] Stop: 09/11/18 02:29 Last Admin: 07/13/18 04:03 Dose: 50 mls/hr Insulin Aspart (Novolog Insulin Sliding Scale) 0 units SUBQ Q6HR COUNT INCLUDES THE [facility]; Protocol Stop: 09/11/18 05:59 Last Admin: 07/14/18 06:05 Dose: Not Given Levothyroxine Sodium (Synthroid) 0.025 mg PO QDAC COUNT INCLUDES THE [facility] Stop: 09/12/18 07:29 Last Admin: 07/14/18 06:35 Dose: 0.025 mg Miscellaneous (Vancomycin Iv Per Pharmacy) 1 ea MC PRN PRN PRN Reason: PROTOCOL Stop: 09/10/18 23:40 Oxcarbazepine (Trileptal) 600 mg PO BID COUNT INCLUDES THE [facility] Stop: 09/11/18 16:59 Last Admin: 07/14/18 08:27 Dose: 600 mg Risperidone (Risperdal) 2 mg PO HS COUNT INCLUDES THE [facility] Stop: 09/11/18 20:59 Last Admin: 07/13/18 21:05 Dose: 2 mg Senna (Senna) 17.2 mg PO BID COUNT INCLUDES THE [facility] Stop: 09/11/18 16:59 Last Admin: 07/14/18 08:27 Dose: 17.2 mg Sevelamer Carbonate (Renvela) 800 mg PO TIDWM VIKTORIA Stop: 09/11/18 16:59 Last Admin: 07/14/18 08:27 Dose: 800 mg Temazepam (Restoril) 15 mg PO HS PRN; Protocol PRN Reason: Insomnia Stop: 09/11/18 15:14 Vitamin B Complex/Vit C/Folic Acid (Vitamin B Complex W/Vitamin C) 1 tab PO DAILY VIKTORIA Stop: 09/12/18 08:59 Last Admin: 07/14/18 08:27 Dose: 1 tab Zinc Sulfate (Zinc Sulfate) 220 mg PO DAILY VIKTORIA Stop: 09/12/18 08:59 Last Admin: 07/14/18 08:27 Dose: 220 mg Lab - Result Diagrams 07/16/18 04:50 07/16/18 04:50 currently being dialyzed Cr. more elevated w/ peripheral edema continue wound care Pt. will need diverting colostomy due to nonheal stage 4 sacral decubitus ulcer f/u CXR start Coumadin for left leg DVT Nutritional Asmnt/Malnutr-PDOC - Dietary Evaluation Malnutrition Findings (Please click <Entered> for more info): Nutritional Asmnt/Malnutrition Start: 07/13/18 13: 54 Text: Status: Complete Freq: Protocol: Document 07/13/18 13:56 ALDAIR (Rec: 07/13/18 14:10 ALDAIR NASH- [id number]) Nutritional Asmnt/Malnutrition Patient General Information Nutritional Screening Consult Diagnosis ESRD, anasarca Pertinent Medical Hx/Surgical Hx Seizure, hep C, diabetes, CAD, HTN, CVA, quadreplegia, Parkinsons, ESRD Subjective Information Consult received for "Diabetic ". Per nursing notes, patient receives hemodialysis MWF and patient is non-verbal. Patient with 2+ pitting edema. Current Diet Order/ Nutrition Support Renal diet Patient / S.O Not Indicated Pertinent Medications D50W, D5-0.45NS @50 ml/hr, Glucagon, Novolog Pertinent Labs (07/13) Na 134, BUN 48, Cr 2.9, glucose 41-137, Ca 8.2, BNP 515, albumin 2 Nutritional Hx/Data Height 1.73 m Height (Calculated Centimeters) 172.7 Current Weight (lbs) 113.852 kg Weight (Calculated Kilograms) 113.9 Weight (Calculated Grams) 922014.7 [place] Body Weight 140 % [place] Body Weight 179 Body Mass Index (BMI) 38.1 Recent Weight Change No Weight Status Morbidly Obese GI Symptoms GI Symptoms None Last BM 9/ x 1 Difficult in: Chewing Food Allergies No Cultural/Ethnic/Denominational Belief none indicated Usual diet at home unknown Skin Integrity/Comment: Arian 10, ulceration on sacrum, left lower leg, abrasion on L heel, scar on right leg. Current %PO Good (75-100%) Estimated Nutritional Goals BEE in Kcals: Adj wt of IBW Calories/Kcals/Kg 27-32 kcal/kg (using 76.2kg ADj wt) Kcals Calculated ~7787-9962 kcal/day Protein g/k.2-1.5 gm/kg using Adj wt Protein Calculated ~90-115 gm/day Fluid: ml Per MD due to HD Nutritional Problem 2. Problem Problem Altered nutrition related lab values related to Etiology episodes of hypoglycemia, electrolyte imbalance aeb Signs/Symptoms: Na 134, glucose 41-137, Ca 8.2 1. Problem Problem Increased nutrient needs related to Etiology hypermetabolic state, impaired skin integrity aeb Signs/Symptoms: Pt on Hemodialysis and with multiple ulcerations Intervention/Recommendation Comments 1. Continue Renal diet as tolerated by patient. No need for DM restriction at this time due to hypoglycemia. 2. Consider fluid restriction due to HD, hyponatremia and edema. 3. Consider adding Prosource 1 packet with each meal for an additional 45gm protein. Expected Outcomes/Goals Expected Outcomes/Goals Oral intake >75% of meals, weight stable or trend toward ideal body weight, nutrition related labs WNL
[2018-07-18 15:50] LABS: INR 1.06 (0.5-1.4)
[2018-07-18] MEDS ORDERED: Amikacin 500 mg in D5W 100mL (Q24HR) IV SCH (17:30)
[2018-07-18] MEDS: Atorvastatin Calcium 10 MG TAB PO SCH (20:06)
--- NOTE | 2018-07-18 23:04 | Progress Notes ---
DATE: 07/18/2018 SUBJECTIVE: The patient was seen in her room. The patient is a poor historian. Otherwise, the patient appears to be in no acute distress. OBJECTIVE: VITAL SIGNS: Temperature 97.1, heart rate 71, blood pressure 112/80, respirations of 18, 99% on room air. HEENT: Head is atraumatic and normocephalic. Eyes: Bilateral conjunctivae are clear. Bilateral pupils are equally round and reactive. NECK: Supple. No JVD. CARDIOVASCULAR: S1 and S2, without murmur. PULMONARY: Clear to auscultation. GASTROINTESTINAL: Soft and nontender without guarding. Positive bowel sounds. MUSCULOSKELETAL: No clubbing. No cyanosis. There is some edema of bilateral lower extremities. ASSESSMENT: 1. Urinary tract infection. 2. End-stage renal disease. 3. Coronary artery disease. 4. Sacral decubitus ulcer. 5. Hypertension. 6. Diabetes. PLAN: We will continue current treatment. We will continue current antibiotics and we will continue dialysis as scheduled. Per her surgeon's recommendation, patient might be needing a diverting colostomy secondary to incontinence. They are also going to discontinue IV fluids. According to nurses, the patient has been eating well. Treatment plans were discussed with the patient's nurse. Treatment plans were discussed with Dr. Parkinson. JOB# [id number]
--- NOTE | 2018-07-18 23:36 | Infectious Disease Prog Note ---
Infectious Disease Subjective - Review of Systems Service Date: 07/18/18 Subjective: There is no new change, no fever./ Infectious Disease Objective - Results Result Diagrams: 07/18/18 09:02 07/18/18 05:20 Recent Labs: Laboratory Last Values WBC 5.6 Th/cmm (4.8-10.8) 07/18/18 09:02 RBC 3.30 Mil/cmm (3.80-5.10) L 07/18/18 09:02 Hgb 9.5 gm/dL (12-16) L 07/18/18 09:02 Hct 29.0 % (41.0-60) L 07/18/18 09:02 MCV 88.0 fl (81-100) 07/18/18 09:02 MCH 28.8 pg (27.0-31.0) 07/18/18 09:02 MCHC Differential 32.7 pg (28.0-36.0) 07/18/18 09:02 RDW 17.1 % (11.5-20.0) 07/18/18 09:02 Plt Count 75 Th/cmm (150-400) L 07/18/18 09:02 MPV 7.7 fl 07/18/18 09:02 Add Manual Diff YES 07/18/18 09:02 Neutrophils % [employer]LEGE OR [employer]IV[employer]ITY [employer] MEMBER 07/16/18 04:50 Band Neutrophils % 1 % (0-10) 07/18/18 09:02 Lymphocytes % COLLEGE OR [employer]IVERSITY [employer] MEMBER 07/16/18 04:50 Monocytes % COLLEGE OR [employer]IVERSITY [employer]ACULT[employer] MEMBER 07/16/18 04:50 Eosinophils % COLLEGE OR [employer]IVERSITY [employer]AC[employer] MEMBER 07/16/18 04:50 Basophils % COLLEGE OR [employer]IVERSITY [employer]AC[employer] MEMBER 07/16/18 04:50 Neutrophils (Manual) 52 % (40-80) 07/18/18 09:02 Lymphocytes 36 % (20-50) 07/18/18 09:02 Monocytes 11 % (2-10) H 07/18/18 09:02 Eosinophils 0 % (0-5) 07/18/18 09:02 Basophils 0 % (0-3) 07/18/18 09:02 Platelet Estimate DECREASED PLATELETS (NORMAL) 07/18/18 09:02 PT 11.0 SECONDS (9.5-11.5) 07/18/18 15:30 INR 1.06 (0.5-1.4) 07/18/18 15:30 Sodium 135 mEq/L (136-145) L 07/18/18 05:20 Potassium 3.9 mEq/L (3.5-5.1) 07/18/18 05:20 Chloride 105 mEq/L (98-107) 07/18/18 05:20 Carbon Dioxide 22.5 mEq/L (21.0-31.0) 07/18/18 05:20 Anion Gap 11.4 (7.0-16.0) 07/18/18 05:20 BUN 21 mg/dL (7-25) 07/18/18 05:20 Creatinine 2.5 mg/dL (0.6-1.2) H 07/18/18 05:20 Est GFR ( Amer) 26.3 ml/min (>90) 07/18/18 05:20 Est GFR (Non-Af Amer) 21.8 ml/min 07/18/18 05:20 BUN/Creatinine Ratio 8.4 07/18/18 05:20 Glucose 199 mg/dL (70-105) H 07/18/18 05:20 POC Glucose 163 MG/DL (70 - 105) H 07/18/18 17:43 Whole Bld Lactic Acid 1.29 mmol/L (0.60-1.99) 07/12/18 20:50 Calcium 7.6 mg/dL (8.6-10.3) L 07/18/18 05:20 Total Bilirubin 0.3 mg/dL (0.3-1.0) 07/18/18 05:20 AST 18 U/L (13-39) 07/18/18 05:20 ALT 7 U/L (7-52) 07/18/18 05:20 Alkaline Phosphatase 80 U/L (34-104) 07/18/18 05:20 Creatine Kinase 20 U/L (30-223) L 07/12/18 20:50 Troponin I 0.49 ng/mL (0.01-0.05) H* 07/13/18 15:20 B-Natriuretic Peptide 515.0 pg/mL (5.0-100.0) H 07/13/18 04:00 Total Protein 4.0 gm/dL (6.0-8.3) L 07/18/18 05:20 Albumin < 1.5 gm/dL (3.7-5.3) L 07/18/18 05:20 Globulin 2.5 gm/dL 07/18/18 05:20 Albumin/Globulin Ratio 0.6 (1.0-1.8) L 07/18/18 05:20 Triglycerides 53 mg/dL (<150) 07/13/18 04:00 Cholesterol 41 mg/dL (<200) 07/13/18 04:00 LDL Cholesterol Direct 11 mg/dL (75-193) L 07/13/18 04:00 HDL Cholesterol 24 mg/dL (23-92) 07/13/18 04:00 TSH 1.21 uIU/ml (0.34-5.60) 07/13/18 04:00 Urine Source [place] 07/12/18 20:50 Urine Color YELLOW 07/12/18 20:50 Urine Clarity CLOUDY (CLEAR) H 07/12/18 20:50 Urine pH 8.5 (4.6 - 8.0) 07/12/18 20:50 Ur Specific [place] 1.015 (1.005-1.030) 07/12/18 20:50 Urine Protein 100 mg/dL (NEGATIVE) H 07/12/18 20:50 Urine Glucose (UA) NEGATIVE mg/dL (NEGATIVE) 07/12/18 20:50 Urine Ketones NEGATIVE mg/dL (NEGATIVE) 07/12/18 20:50 Urine Blood TRACE (NEGATIVE) 07/12/18 20:50 Urine Nitrate NEGATIVE (NEGATIVE) 07/12/18 20:50 Urine Bilirubin NEGATIVE (NEGATIVE) 07/12/18 20:50 Urine Urobilinogen 0.2 E.U./dL (0.2 - 1.0) 07/12/18 20:50 Ur Leukocyte Esterase LARGE (NEGATIVE) H 07/12/18 20:50 Urine RBC 2-5 /hpf (0-5) 07/12/18 20:50 Urine WBC >100 /hpf (0-5) H 07/12/18 20:50 Ur Epithelial Cells MODERATE /lpf (FEW) 07/12/18 20:50 Urine Bacteria MANY /hpf (NONE SEEN) H 07/12/18 20:50 Random Vancomycin 27.7 ug/mL (5.0-40.0) 07/18/18 09:02 - Physical Exam Vitals and I&O: Vital Signs Temp 97.0 F 07/18/18 20:00 Pulse 110 07/18/18 20:00 Resp 18 07/18/18 20:00 BP 161/88 07/18/18 20:00 Pulse Ox 100 07/18/18 20:00 Intake & Output 07/18/18 07/18/18 07/19/18 06:59 18:59 06:59 Intake Total 120 500 Output Total 3700 50 Balance -3580 450 Weight (lbs) 112.037 kg 112.037 kg Intake: Oral 120 500 Output: Urine 200 50 Other 3500 Other: # Bowel Movements 1 1 Weight Source Bedscale Bedscale Active Medications: Current Medications Acetaminophen (Tylenol) 650 mg PO Q6H PRN PRN Reason: Pain or Fever >101 Stop: 09/11/18 15:14 Acetaminophen/Hydrocodone Bitart ([place] 5mg/325mg) 1 tab PO Q6H PRN PRN Reason: Pain (Severe) Stop: 09/11/18 15:14 Last Admin: 07/16/18 14:22 Dose: 1 tab Albuterol/Ipratropium (Duoneb Neb) 3 ml HHN Q4HRT PRN PRN Reason: Shortness of Breath or Wheeze Stop: 09/11/18 15:14 Ascorbic Acid (Vitamin C) 500 mg PO DAILY [facility] Stop: 09/12/18 08:59 Last Admin: 07/18/18 08:42 Dose: 500 mg Atorvastatin Calcium (Lipitor) 20 mg PO HS [facility] Stop: 09/11/18 20:59 Last Admin: 07/18/18 20:06 Dose: 20 mg [place] Oil/[place] Balsam/Trypsin (Venelex) 1 appl TP DAILY [facility] Stop: 09/13/18 08:59 Last Admin: 07/18/18 13:06 Dose: 1 appl Dextrose (Glutose 40%) 18.75 gm PO PRN PRN PRN Reason: Blood Glucose less than 70 Stop: 09/11/18 04:10 Docusate Sodium (Colace) 100 mg PO BID [facility] Stop: 09/11/18 16:59 Last Admin: 07/18/18 17:29 Dose: 100 mg Famotidine (Pepcid) 20 mg PO DAILY [facility] Stop: 09/12/18 08:59 Last Admin: 07/18/18 08:42 Dose: 20 mg Folic Acid (Folate) 1 mg PO DAILY [facility] Stop: 09/12/18 08:59 Last Admin: 07/18/18 08:42 Dose: 1 mg Glucagon (Glucagen) 1 mg IM PRN PRN PRN Reason: Blood Glucose less than 70 Stop: 09/11/18 04:10 Insulin Aspart (Novolog Insulin Sliding Scale) 0 units SUBQ Q6HR [facility]; Protocol Stop: 09/11/18 05:59 Last Admin: 07/18/18 18:12 Dose: 2 units Lactobacillus Rhamnosus (Culturelle 15b) 1 each PO DAILY [facility] Stop: 09/13/18 13:59 Last Admin: 07/18/18 08:42 Dose: 1 each Levothyroxine Sodium (Synthroid) 0.025 mg PO QDAC [facility] Stop: 09/12/18 07:29 Last Admin: 07/18/18 06:41 Dose: 0.025 mg Miscellaneous (Probiotic Screen) 1 ea PRN PRN PRN Reason: PROTOCOL Stop: 09/13/18 11:44 Miscellaneous (Amikacin Iv Per Pharmacy) 1 [facility] PRN PRN PRN Reason: PROTOCOL Stop: 09/13/18 18:08 Miscellaneous (Vancomycin Iv Per Pharmacy) 1 ea PRN [facility] Stop: 09/14/18 18:59 Oxcarbazepine (Trileptal) 600 mg PO BID [facility] Stop: 09/11/18 16:59 Last Admin: 07/18/18 17:29 Dose: 600 mg Risperidone (Risperdal) 2 mg PO HS [facility] Stop: 09/11/18 20:59 Last Admin: 07/18/18 20:06 Dose: 2 mg Senna (Senna) 17.2 mg PO BID [facility] Stop: 09/11/18 16:59 Last Admin: 07/18/18 17:29 Dose: 17.2 mg Sevelamer Carbonate (Renvela) 800 mg PO TIDWM [facility] Stop: 09/11/18 16:59 Last Admin: 07/18/18 17:29 Dose: 800 mg Temazepam (Restoril) 15 mg PO HS PRN; Protocol PRN Reason: Insomnia Stop: 09/11/18 15:14 Vitamin B Complex/Vit C/Folic Acid (Vitamin B Complex W/Vitamin C) 1 tab PO DAILY [facility] Stop: 09/12/18 08:59 Last Admin: 07/18/18 08:42 Dose: 1 tab Warfarin Sodium (Coumadin Per Pharmacy) 1 ea PRN [facility]; Protocol Stop: 09/16/18 14:29 Zinc Sulfate (Zinc Sulfate) 220 mg PO DAILY [facility] Stop: 09/12/18 08:59 Last Admin: 07/18/18 08:42 Dose: 220 mg General: no acute distress, well developed, well nourished HEENT: atraumatic, normocephalic, PERRLA, EOMI Neck: supple, no thyromegaly Cardiovascular: S1S2, regular, systolic murmur Lungs: clear to auscultation bilaterally, clear to percussion Abdomen: soft, no tender, no distended, no hepatomegaly Extremities: no cyanosis, no clubbing, no edema Neurological: awake, alert, oriented Skin: other (stage 4 sacral wound) Infectious Disease Assmt/Plan - Assessment Assessment: 1. UTI 2. Staph CN in blood contaminant. 3. Hypoglycemia. 4. Diabetes mellitus type 1 with episodes of hypoglycemia. 5. Hypertension. 6. Anemia of chronic disease. 7. Coronary artery disease, 8. CHF.. 9. Anasarca 10. 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 11. sacral stage 4 wound. - Plan Plan: Continue amikacin. wound care. Nutritional Asmnt/Malnutr-PDOC - Dietary Evaluation Malnutrition Findings (Please click <Entered> for more info): Nutritional Asmnt/Malnutrition Start: 07/13/18 13: 54 Text: Status: Complete Freq: Protocol: Document 07/13/18 13:56 ALDAIR (Rec: 07/13/18 14:10 MMERIN NASH [email or web address]) Nutritional Asmnt/Malnutrition Patient General Information Nutritional Screening Consult Diagnosis ESRD, anasarca Pertinent Medical Hx/Surgical Hx Seizure, hep C, diabetes, CAD, HTN, CVA, quadreplegia, Parkinsons, ESRD Subjective Information Consult received for "Diabetic ". Per nursing notes, patient receives hemodialysis MWF and patient is non-verbal. Patient with 2+ pitting edema. Current Diet Order/ Nutrition Support Renal diet Patient / S.O Not Indicated Pertinent Medications D50W, D5-0.45NS @50 ml/hr, Glucagon, Novolog Pertinent Labs (07/13) Na 134, BUN 48, Cr 2.9, glucose 41-137, Ca 8.2, BNP 515, albumin 2 Nutritional Hx/Data Height 1.73 m Height (Calculated Centimeters) 172.7 Current Weight (lbs) 113.852 kg Weight (Calculated Kilograms) 113.9 Weight (Calculated Grams) 230004.7 [place] Body Weight 140 % [place] Body Weight 179 Body Mass Index (BMI) 38.1 Recent Weight Change No Weight Status Morbidly Obese GI Symptoms GI Symptoms None Last BM 9/3 x 1 Difficult in: Chewing Food Allergies No Cultural/Ethnic/Mormonism Belief none indicated Usual diet at home unknown Skin Integrity/Comment: Arian 10, ulceration on sacrum, left lower leg, abrasion on L heel, scar on right leg. Current %PO Good (75-100%) Estimated Nutritional Goals BEE in Kcals: Adj wt of IBW Calories/Kcals/Kg 27-32 kcal/kg (using 76.2kg ADj wt) Kcals Calculated ~6333-2878 kcal/day Protein g/k.2-1.5 gm/kg using Adj wt Protein Calculated ~90-115 gm/day Fluid: ml Per MD due to HD Nutritional Problem 2. Problem Problem Altered nutrition related lab values related to Etiology episodes of hypoglycemia, electrolyte imbalance aeb Signs/Symptoms: Na 134, glucose 41-137, Ca 8.2 1. Problem Problem Increased nutrient needs related to Etiology hypermetabolic state, impaired skin integrity aeb Signs/Symptoms: Pt on Hemodialysis and with multiple ulcerations Intervention/Recommendation Comments 1. Continue Renal diet as tolerated by patient. No need for DM restriction at this time due to hypoglycemia. 2. Consider fluid restriction due to HD, hyponatremia and edema. 3. Consider adding Prosource 1 packet with each meal for an additional 45gm protein. Expected Outcomes/Goals Expected Outcomes/Goals Oral intake >75% of meals, weight stable or trend toward ideal body weight, nutrition related labs WNL
[2018-07-19] MEDS: INSULIN ASPART SLIDING SCALE 100 UNITS/ML UNIT SUBQ SCH ×4 (01:05→17:37)
[2018-07-19] MEDS: Levothyroxine 0.025 Mg Tab PO SCH (06:35)
[2018-07-19] MEDS ORDERED: Amikacin 500 mg in D5W 100mL (Q24HR) IV SCH (08:00)
[2018-07-19 08:23] LABS: INR 1.34 (0.5-1.4); PROTHROMBIN TIME (TEST) 13.7 SECONDS (9.5-11.5)
[2018-07-19] MEDS: Docusate Sodium 100 mg/10 mL UD PO SCH ×2 (09:02→16:45)
[2018-07-19] MEDS: Lactobacillus Rhamnosus GG 15 Billion CFU CAP.SPRINK PO SCH (09:03)
[2018-07-19] MEDS: Vitamin B Complex w/Vitamin C Tab PO SCH (09:03)
--- NOTE | 2018-07-19 09:29 | Diagnostic Imaging Report ---
Bilateral lower extremity DVT study HISTORY: Edema and pain COMPARISON: None Technique: Longitudinal and transverse sonographic images of the bilateral lower extremity veins were obtained with doppler analysis. FINDINGS: There is normal compressibility, augmentation and phasicity of the right common femoral, superficial femoral, popliteal, and posterior tibial veins. No thrombus is visualized. Exam of the left side demonstrates questionable nonocclusive thrombus however repeat assessment of the left side is limited due to limitations in body habitus and technical factors. IMPRESSION: Questionable nonocclusive thrombus within the left proximal superficial femoral vein. As exam was limited due to body habitus and technical factors, repeat assessment of the left side is recommended for further assessment.
--- NOTE | 2018-07-19 09:32 | Diagnostic Imaging Report ---
CHEST X-RAY: AP view INDICATION: CHF COMPARISON: 07/17/2018 FINDINGS: Findings of CHF are seen bilateral effusions and infiltrates. Cardiomegaly is noted. IMPRESSION: Persistent CHF with bilateral effusions and infiltrates. Cardiomegaly.
--- NOTE | 2018-07-19 09:59 | General Progress Note ---
Subjective - Review of Systems Service Date: 07/19/18 Events since last encounter: incontinent, needs diverting colostomy will need 2 MDs to certify medical necessity, Psych consult as well Objective - Results Result Diagrams: 07/18/18 09:02 07/18/18 05:20 Recent Labs: Laboratory Last Values WBC 5.6 Th/cmm (4.8-10.8) 07/18/18 09:02 RBC 3.30 Mil/cmm (3.80-5.10) L 07/18/18 09:02 Hgb 9.5 gm/dL (12-16) L 07/18/18 09:02 Hct 29.0 % (41.0-60) L 07/18/18 09:02 MCV 88.0 fl (81-100) 07/18/18 09:02 MCH 28.8 pg (27.0-31.0) 07/18/18 09:02 MCHC Differential 32.7 pg (28.0-36.0) 07/18/18 09:02 RDW 17.1 % (11.5-20.0) 07/18/18 09:02 Plt Count 75 Th/cmm (150-400) L 07/18/18 09:02 MPV 7.7 fl 07/18/18 09:02 Add Manual Diff YES 07/18/18 09:02 Neutrophils % [employer]SEMBLER 07/16/18 04:50 Band Neutrophils % 1 % (0-10) 07/18/18 09:02 Lymphocytes % [employer]SEMBLER 07/16/18 04:50 Monocytes % [employer] ASSEMBLER 07/16/18 04:50 Eosinophils % [employer] ASSEMBLER 07/16/18 04:50 Basophils % [employer] ASSEMBLER 07/16/18 04:50 Neutrophils (Manual) 52 % (40-80) 07/18/18 09:02 Lymphocytes 36 % (20-50) 07/18/18 09:02 Monocytes 11 % (2-10) H 07/18/18 09:02 Eosinophils 0 % (0-5) 07/18/18 09:02 Basophils 0 % (0-3) 07/18/18 09:02 Platelet Estimate DECREASED PLATELETS (NORMAL) 07/18/18 09:02 PT 13.7 SECONDS (9.5-11.5) H 07/19/18 05:56 INR 1.34 (0.5-1.4) 07/19/18 05:56 Sodium 135 mEq/L (136-145) L 07/18/18 05:20 Potassium 3.9 mEq/L (3.5-5.1) 07/18/18 05:20 Chloride 105 mEq/L (98-107) 07/18/18 05:20 Carbon Dioxide 22.5 mEq/L (21.0-31.0) 07/18/18 05:20 Anion Gap 11.4 (7.0-16.0) 07/18/18 05:20 BUN 21 mg/dL (7-25) 07/18/18 05:20 Creatinine 2.5 mg/dL (0.6-1.2) H 07/18/18 05:20 Est GFR ( Amer) 26.3 ml/min (>90) 07/18/18 05:20 Est GFR (Non-Af Amer) 21.8 ml/min 07/18/18 05:20 BUN/Creatinine Ratio 8.4 07/18/18 05:20 Glucose 199 mg/dL (70-105) H 07/18/18 05:20 POC Glucose 133 MG/DL (70 - 105) H 07/19/18 05:43 Whole Bld Lactic Acid 1.29 mmol/L (0.60-1.99) 07/12/18 20:50 Calcium 7.6 mg/dL (8.6-10.3) L 07/18/18 05:20 Total Bilirubin 0.3 mg/dL (0.3-1.0) 07/18/18 05:20 AST 18 U/L (13-39) 07/18/18 05:20 ALT 7 U/L (7-52) 07/18/18 05:20 Alkaline Phosphatase 80 U/L (34-104) 07/18/18 05:20 Creatine Kinase 20 U/L (30-223) L 07/12/18 20:50 Troponin I 0.49 ng/mL (0.01-0.05) H* 07/13/18 15:20 B-Natriuretic Peptide 515.0 pg/mL (5.0-100.0) H 07/13/18 04:00 Total Protein 4.0 gm/dL (6.0-8.3) L 07/18/18 05:20 Albumin < 1.5 gm/dL (3.7-5.3) L 07/18/18 05:20 Globulin 2.5 gm/dL 07/18/18 05:20 Albumin/Globulin Ratio 0.6 (1.0-1.8) L 07/18/18 05:20 Triglycerides 53 mg/dL (<150) 07/13/18 04:00 Cholesterol 41 mg/dL (<200) 07/13/18 04:00 LDL Cholesterol Direct 11 mg/dL (75-193) L 07/13/18 04:00 HDL Cholesterol 24 mg/dL (23-92) 07/13/18 04:00 TSH 1.21 uIU/ml (0.34-5.60) 07/13/18 04:00 Urine Source [place] 07/12/18 20:50 Urine Color YELLOW 07/12/18 20:50 Urine Clarity CLOUDY (CLEAR) H 07/12/18 20:50 Urine pH 8.5 (4.6 - 8.0) 07/12/18 20:50 Ur Specific [place] 1.015 (1.005-1.030) 07/12/18 20:50 Urine Protein 100 mg/dL (NEGATIVE) H 07/12/18 20:50 Urine Glucose (UA) NEGATIVE mg/dL (NEGATIVE) 07/12/18 20:50 Urine Ketones NEGATIVE mg/dL (NEGATIVE) 07/12/18 20:50 Urine Blood TRACE (NEGATIVE) 07/12/18 20:50 Urine Nitrate NEGATIVE (NEGATIVE) 07/12/18 20:50 Urine Bilirubin NEGATIVE (NEGATIVE) 07/12/18 20:50 Urine Urobilinogen 0.2 E.U./dL (0.2 - 1.0) 07/12/18 20:50 Ur Leukocyte Esterase LARGE (NEGATIVE) H 07/12/18 20:50 Urine RBC 2-5 /hpf (0-5) 07/12/18 20:50 Urine WBC >100 /hpf (0-5) H 07/12/18 20:50 Ur Epithelial Cells MODERATE /lpf (FEW) 07/12/18 20:50 Urine Bacteria MANY /hpf (NONE SEEN) H 07/12/18 20:50 Random Vancomycin 24.8 ug/mL (5.0-40.0) 07/19/18 05:56 - Physical Exam Vitals and I&O: Vital Signs Temp 97.4 F 07/19/18 07:59 Pulse 109 07/19/18 07:59 Resp 17 07/19/18 07:59 BP 138/48 07/19/18 07:59 Pulse Ox 100 07/19/18 07:59 Intake & Output 07/18/18 07/19/18 07/19/18 18:59 06:59 18:59 Intake Total 550 Output Total 50 Balance 500 Weight (lbs) 114.396 kg Intake: Oral 550 Output: Urine 50 Other: # Bowel Movements 1 Weight Source Bedscale Active Medications: Current Medications Acetaminophen (Tylenol) 650 mg PO Q6H PRN PRN Reason: Pain or Fever >101 Stop: 09/11/18 15:14 Acetaminophen/Hydrocodone Bitart ([place] 5mg/325mg) 1 tab PO Q6H PRN PRN Reason: Pain (Severe) Stop: 09/11/18 15:14 Last Admin: 07/16/18 14:22 Dose: 1 tab Albuterol/Ipratropium (Duoneb Neb) 3 ml HHN Q4HRT PRN PRN Reason: Shortness of Breath or Wheeze Stop: 09/11/18 15:14 Ascorbic Acid (Vitamin C) 500 mg PO DAILY [facility] Stop: 09/12/18 08:59 Last Admin: 07/19/18 09:03 Dose: 500 mg Atorvastatin Calcium (Lipitor) 20 mg PO HS [facility] Stop: 09/11/18 20:59 Last Admin: 07/18/18 20:06 Dose: 20 mg [place] Oil/[place] Balsam/Trypsin (Venelex) 1 appl TP DAILY [facility] Stop: 09/13/18 08:59 Last Admin: 07/18/18 13:06 Dose: 1 appl Dextrose (Glutose 40%) 18.75 gm PO PRN PRN PRN Reason: Blood Glucose less than 70 Stop: 09/11/18 04:10 Docusate Sodium (Colace) 100 mg PO BID [facility] Stop: 09/11/18 16:59 Last Admin: 07/19/18 09:02 Dose: 100 mg Famotidine (Pepcid) 20 mg PO DAILY [facility] Stop: 09/12/18 08:59 Last Admin: 07/19/18 09:03 Dose: 20 mg Folic Acid (Folate) 1 mg PO DAILY [facility] Stop: 09/12/18 08:59 Last Admin: 07/19/18 09:03 Dose: 1 mg Glucagon (Glucagen) 1 mg IM PRN PRN PRN Reason: Blood Glucose less than 70 Stop: 09/11/18 04:10 Heparin Sodium (Porcine) (Heparin) 5,000 units SUBQ Q12HR [facility] Stop: 09/17/18 20:59 Amikacin Sulfate 500 mg/ (Dextrose) 102 mls @ 100 mls/hr IV 0800 [facility] Stop: 07/19/18 12:00 Last Admin: 07/19/18 08:08 Dose: 100 mls/hr Insulin Aspart (Novolog Insulin Sliding Scale) 0 units SUBQ Q6HR [facility]; Protocol Stop: 09/11/18 05:59 Last Admin: 07/19/18 05:44 Dose: Not Given Lactobacillus Rhamnosus (Culturelle 15b) 1 each PO DAILY [facility] Stop: 09/13/18 13:59 Last Admin: 07/19/18 09:03 Dose: 1 each Levothyroxine Sodium (Synthroid) 0.025 mg PO QDAC [facility] Stop: 09/12/18 07:29 Last Admin: 07/19/18 06:35 Dose: 0.025 mg Miscellaneous (Probiotic Screen) 1 ea PRN PRN PRN Reason: PROTOCOL Stop: 09/13/18 11:44 Miscellaneous (Amikacin Iv Per Pharmacy) 1 ea PRN PRN PRN Reason: PROTOCOL Stop: 09/13/18 18:08 Miscellaneous (Vancomycin Iv Per Pharmacy) 1 ea PRN [facility] Stop: 09/14/18 18:59 Oxcarbazepine (Trileptal) 600 mg PO BID [facility] Stop: 09/11/18 16:59 Last Admin: 07/19/18 09:03 Dose: 600 mg Risperidone (Risperdal) 2 mg PO HS [facility] Stop: 09/11/18 20:59 Last Admin: 07/18/18 20:06 Dose: 2 mg Senna (Senna) 17.2 mg PO BID [facility] Stop: 09/11/18 16:59 Last Admin: 07/19/18 09:02 Dose: 17.2 mg Sevelamer Carbonate (Renvela) 800 mg PO TIDWM [facility] Stop: 09/11/18 16:59 Last Admin: 07/18/18 17:29 Dose: 800 mg Temazepam (Restoril) 15 mg PO HS PRN; Protocol PRN Reason: Insomnia Stop: 09/11/18 15:14 Vitamin B Complex/Vit C/Folic Acid (Vitamin B Complex W/Vitamin C) 1 tab PO DAILY [facility] Stop: 09/12/18 08:59 Last Admin: 07/19/18 09:03 Dose: 1 tab Warfarin Sodium (Coumadin Per Pharmacy) 1 ea PRN [facility]; Protocol Stop: 09/16/18 14:29 Warfarin Sodium (Coumadin) 5 mg PO C [facility] Stop: 07/19/18 17:00 Zinc Sulfate (Zinc Sulfate) 220 mg PO DAILY [facility] Stop: 09/12/18 08:59 Last Admin: 07/19/18 09:02 Dose: 220 mg General: Alert, Mild distress HEENT: Atraumatic, EOMI Neck: Supple, +2 carotid pulse wo bruit Cardiovascular: Regular rate, Normal S1, Normal S2 Lungs: Other (scattered rales) Abdomen: Bowel sounds, Soft Extremities: Edema ((+) 2-3 edema), Other ((+) 3 bipedal edema) Neurological: Sensation intact Skin: no Rash Psych/Mental Status: Mood NL Nutritional Asmnt/Malnutr-PDOC - Dietary Evaluation Malnutrition Findings (Please click <Entered> for more info): Nutritional Asmnt/Malnutrition Start: 07/13/18 13: 54 Text: Status: Complete Freq: Protocol: Document 07/13/18 13:56 MMULN (Rec: 07/13/18 14:10 MMULNACHO NASH- [email or web address]) Nutritional Asmnt/Malnutrition Patient General Information Nutritional Screening Consult Diagnosis ESRD, anasarca Pertinent Medical Hx/Surgical Hx Seizure, hep C, diabetes, CAD, HTN, CVA, quadreplegia, Parkinsons, ESRD Subjective Information Consult received for "Diabetic ". Per nursing notes, patient receives hemodialysis MWF and patient is non-verbal. Patient with 2+ pitting edema. Current Diet Order/ Nutrition Support Renal diet Patient / S.O Not Indicated Pertinent Medications D50W, D5-0.45NS @50 ml/hr, Glucagon, Novolog Pertinent Labs (07/13) Na 134, BUN 48, Cr 2.9, glucose 41-137, Ca 8.2, BNP 515, albumin 2 Nutritional Hx/Data Height 1.73 m Height (Calculated Centimeters) 172.7 Current Weight (lbs) 113.852 kg Weight (Calculated Kilograms) 113.9 Weight (Calculated Grams) 271770.7 [place] Body Weight 140 % [place] Body Weight 179 Body Mass Index (BMI) 38.1 Recent Weight Change No Weight Status Morbidly Obese GI Symptoms GI Symptoms None Last BM 9/3 x 1 Difficult in: Chewing Food Allergies No Cultural/Ethnic/Yarsani Belief none indicated Usual diet at home unknown Skin Integrity/Comment: Arian 10, ulceration on sacrum, left lower leg, abrasion on L heel, scar on right leg. Current %PO Good (75-100%) Estimated Nutritional Goals BEE in Kcals: Adj wt of IBW Calories/Kcals/Kg 27-32 kcal/kg (using 76.2kg ADj wt) Kcals Calculated ~0112-6476 kcal/day Protein g/k.2-1.5 gm/kg using Adj wt Protein Calculated ~90-115 gm/day Fluid: ml Per MD due to HD Nutritional Problem 2. Problem Problem Altered nutrition related lab values related to Etiology episodes of hypoglycemia, electrolyte imbalance aeb Signs/Symptoms: Na 134, glucose 41-137, Ca 8.2 1. Problem Problem Increased nutrient needs related to Etiology hypermetabolic state, impaired skin integrity aeb Signs/Symptoms: Pt on Hemodialysis and with multiple ulcerations Intervention/Recommendation Comments 1. Continue Renal diet as tolerated by patient. No need for DM restriction at this time due to hypoglycemia. 2. Consider fluid restriction due to HD, hyponatremia and edema. 3. Consider adding Prosource 1 packet with each meal for an additional 45gm protein. Expected Outcomes/Goals Expected Outcomes/Goals Oral intake >75% of meals, weight stable or trend toward ideal body weight, nutrition related labs WNL
--- NOTE | 2018-07-19 11:23 | General Progress Note ---
Subjective - Review of Systems Events since last encounter: patient in no acute distress denies pain Objective - Results Result Diagrams: 07/18/18 09:02 07/18/18 05:20 Recent Labs: Laboratory Last Values WBC 5.6 Th/cmm (4.8-10.8) 07/18/18 09:02 RBC 3.30 Mil/cmm (3.80-5.10) L 07/18/18 09:02 Hgb 9.5 gm/dL (12-16) L 07/18/18 09:02 Hct 29.0 % (41.0-60) L 07/18/18 09:02 MCV 88.0 fl (81-100) 07/18/18 09:02 MCH 28.8 pg (27.0-31.0) 07/18/18 09:02 MCHC Differential 32.7 pg (28.0-36.0) 07/18/18 09:02 RDW 17.1 % (11.5-20.0) 07/18/18 09:02 Plt Count 75 Th/cmm (150-400) L 07/18/18 09:02 MPV 7.7 fl 07/18/18 09:02 Add Manual Diff YES 07/18/18 09:02 Neutrophils % AMPHIBIOUS OPERATIONS OFFICER 07/16/18 04:50 Band Neutrophils % 1 % (0-10) 07/18/18 09:02 Lymphocytes % AMPHIBIOUS OPERATIONS OFFICER 07/16/18 04:50 Monocytes % AMPHIBIOUS OPERATIONS OFFICER 07/16/18 04:50 Eosinophils % AMPHIBIOUS OPERATIONS OFFICER 07/16/18 04:50 Basophils % AMPHIBIOUS OPERATIONS OFFICER 07/16/18 04:50 Neutrophils (Manual) 52 % (40-80) 07/18/18 09:02 Lymphocytes 36 % (20-50) 07/18/18 09:02 Monocytes 11 % (2-10) H 07/18/18 09:02 Eosinophils 0 % (0-5) 07/18/18 09:02 Basophils 0 % (0-3) 07/18/18 09:02 Platelet Estimate DECREASED PLATELETS (NORMAL) 07/18/18 09:02 PT 13.7 SECONDS (9.5-11.5) H 07/19/18 05:56 INR 1.34 (0.5-1.4) 07/19/18 05:56 Sodium 135 mEq/L (136-145) L 07/18/18 05:20 Potassium 3.9 mEq/L (3.5-5.1) 07/18/18 05:20 Chloride 105 mEq/L (98-107) 07/18/18 05:20 Carbon Dioxide 22.5 mEq/L (21.0-31.0) 07/18/18 05:20 Anion Gap 11.4 (7.0-16.0) 07/18/18 05:20 BUN 21 mg/dL (7-25) 07/18/18 05:20 Creatinine 2.5 mg/dL (0.6-1.2) H 07/18/18 05:20 Est GFR ( Amer) 26.3 ml/min (>90) 07/18/18 05:20 Est GFR (Non-Af Amer) 21.8 ml/min 07/18/18 05:20 BUN/Creatinine Ratio 8.4 07/18/18 05:20 Glucose 199 mg/dL (70-105) H 07/18/18 05:20 POC Glucose 133 MG/DL (70 - 105) H 07/19/18 05:43 Whole Bld Lactic Acid 1.29 mmol/L (0.60-1.99) 07/12/18 20:50 Calcium 7.6 mg/dL (8.6-10.3) L 07/18/18 05:20 Total Bilirubin 0.3 mg/dL (0.3-1.0) 07/18/18 05:20 AST 18 U/L (13-39) 07/18/18 05:20 ALT 7 U/L (7-52) 07/18/18 05:20 Alkaline Phosphatase 80 U/L (34-104) 07/18/18 05:20 Creatine Kinase 20 U/L (30-223) L 07/12/18 20:50 Troponin I 0.49 ng/mL (0.01-0.05) H* 07/13/18 15:20 B-Natriuretic Peptide 515.0 pg/mL (5.0-100.0) H 07/13/18 04:00 Total Protein 4.0 gm/dL (6.0-8.3) L 07/18/18 05:20 Albumin < 1.5 gm/dL (3.7-5.3) L 07/18/18 05:20 Globulin 2.5 gm/dL 07/18/18 05:20 Albumin/Globulin Ratio 0.6 (1.0-1.8) L 07/18/18 05:20 Triglycerides 53 mg/dL (<150) 07/13/18 04:00 Cholesterol 41 mg/dL (<200) 07/13/18 04:00 LDL Cholesterol Direct 11 mg/dL (75-193) L 07/13/18 04:00 HDL Cholesterol 24 mg/dL (23-92) 07/13/18 04:00 TSH 1.21 uIU/ml (0.34-5.60) 07/13/18 04:00 Urine Source [place] 07/12/18 20:50 Urine Color YELLOW 07/12/18 20:50 Urine Clarity CLOUDY (CLEAR) H 07/12/18 20:50 Urine pH 8.5 (4.6 - 8.0) 07/12/18 20:50 Ur Specific [place] 1.015 (1.005-1.030) 07/12/18 20:50 Urine Protein 100 mg/dL (NEGATIVE) H 07/12/18 20:50 Urine Glucose (UA) NEGATIVE mg/dL (NEGATIVE) 07/12/18 20:50 Urine Ketones NEGATIVE mg/dL (NEGATIVE) 07/12/18 20:50 Urine Blood TRACE (NEGATIVE) 07/12/18 20:50 Urine Nitrate NEGATIVE (NEGATIVE) 07/12/18 20:50 Urine Bilirubin NEGATIVE (NEGATIVE) 07/12/18 20:50 Urine Urobilinogen 0.2 E.U./dL (0.2 - 1.0) 07/12/18 20:50 Ur Leukocyte Esterase LARGE (NEGATIVE) H 07/12/18 20:50 Urine RBC 2-5 /hpf (0-5) 07/12/18 20:50 Urine WBC >100 /hpf (0-5) H 07/12/18 20:50 Ur Epithelial Cells MODERATE /lpf (FEW) 07/12/18 20:50 Urine Bacteria MANY /hpf (NONE SEEN) H 07/12/18 20:50 Random Vancomycin 24.8 ug/mL (5.0-40.0) 07/19/18 05:56 - Physical Exam Vitals and I&O: Vital Signs Temp 97.4 F 07/19/18 07:59 Pulse 109 07/19/18 07:59 Resp 17 07/19/18 07:59 BP 138/48 07/19/18 07:59 Pulse Ox 100 07/19/18 07:59 Intake & Output 07/18/18 07/19/18 07/19/18 18:59 06:59 18:59 Intake Total 550 Output Total 50 Balance 500 Weight (lbs) 114.396 kg Intake: Oral 550 Output: Urine 50 Other: # Bowel Movements 1 Weight Source Bedscale Active Medications: Current Medications Acetaminophen (Tylenol) 650 mg PO Q6H PRN PRN Reason: Pain or Fever >101 Stop: 09/11/18 15:14 Acetaminophen/Hydrocodone Bitart ([place] 5mg/325mg) 1 tab PO Q6H PRN PRN Reason: Pain (Severe) Stop: 09/11/18 15:14 Last Admin: 07/16/18 14:22 Dose: 1 tab Albuterol/Ipratropium (Duoneb Neb) 3 ml HHN Q4HRT PRN PRN Reason: Shortness of Breath or Wheeze Stop: 09/11/18 15:14 Ascorbic Acid (Vitamin C) 500 mg PO DAILY [facility] Stop: 09/12/18 08:59 Last Admin: 07/19/18 09:03 Dose: 500 mg Atorvastatin Calcium (Lipitor) 20 mg PO HS [facility] Stop: 09/11/18 20:59 Last Admin: 07/18/18 20:06 Dose: 20 mg [place] Oil/Syrian Balsam/Trypsin (Venelex) 1 appl TP DAILY [facility] Stop: 09/13/18 08:59 Last Admin: 07/18/18 13:06 Dose: 1 appl Dextrose (Glutose 40%) 18.75 gm PO PRN PRN PRN Reason: Blood Glucose less than 70 Stop: 09/11/18 04:10 Docusate Sodium (Colace) 100 mg PO BID [facility] Stop: 09/11/18 16:59 Last Admin: 07/19/18 09:02 Dose: 100 mg Famotidine (Pepcid) 20 mg PO DAILY [facility] Stop: 09/12/18 08:59 Last Admin: 07/19/18 09:03 Dose: 20 mg Folic Acid (Folate) 1 mg PO DAILY [facility] Stop: 09/12/18 08:59 Last Admin: 07/19/18 09:03 Dose: 1 mg Glucagon (Glucagen) 1 mg IM PRN PRN PRN Reason: Blood Glucose less than 70 Stop: 09/11/18 04:10 Heparin Sodium (Porcine) (Heparin) 5,000 units SUBQ Q12HR [facility] Stop: 09/17/18 20:59 Amikacin Sulfate 500 mg/ (Dextrose) 102 mls @ 100 mls/hr IV 0800 [facility] Stop: 07/19/18 12:00 Last Admin: 07/19/18 08:08 Dose: 100 mls/hr Insulin Aspart (Novolog Insulin Sliding Scale) 0 units SUBQ Q6HR [facility]; Protocol Stop: 09/11/18 05:59 Last Admin: 07/19/18 05:44 Dose: Not Given Lactobacillus Rhamnosus (Culturelle 15b) 1 each PO DAILY [facility] Stop: 09/13/18 13:59 Last Admin: 07/19/18 09:03 Dose: 1 each Levothyroxine Sodium (Synthroid) 0.025 mg PO QDAC [facility] Stop: 09/12/18 07:29 Last Admin: 07/19/18 06:35 Dose: 0.025 mg Miscellaneous (Probiotic Screen) 1 ea [facility] PRN PRN PRN Reason: PROTOCOL Stop: 09/13/18 11:44 Miscellaneous (Amikacin Iv Per Pharmacy) 1 ea PRN PRN PRN Reason: PROTOCOL Stop: 09/13/18 18:08 Miscellaneous (Vancomycin Iv Per Pharmacy) 1 ea [facility] PRN [facility] Stop: 09/14/18 18:59 Oxcarbazepine (Trileptal) 600 mg PO BID [facility] Stop: 09/11/18 16:59 Last Admin: 07/19/18 09:03 Dose: 600 mg Risperidone (Risperdal) 2 mg PO HS [facility] Stop: 09/11/18 20:59 Last Admin: 07/18/18 20:06 Dose: 2 mg Senna (Senna) 17.2 mg PO BID [facility] Stop: 09/11/18 16:59 Last Admin: 07/19/18 09:02 Dose: 17.2 mg Sevelamer Carbonate (Renvela) 800 mg PO TIDWM [facility] Stop: 09/11/18 16:59 Last Admin: 07/18/18 17:29 Dose: 800 mg Temazepam (Restoril) 15 mg PO HS PRN; Protocol PRN Reason: Insomnia Stop: 09/11/18 15:14 Vitamin B Complex/Vit C/Folic Acid (Vitamin B Complex W/Vitamin C) 1 tab PO DAILY [facility] Stop: 09/12/18 08:59 Last Admin: 07/19/18 09:03 Dose: 1 tab Warfarin Sodium (Coumadin Per Pharmacy) 1 [facility] PRN [facility]; Protocol Stop: 09/16/18 14:29 Warfarin Sodium (Coumadin) 5 mg PO C [facility] Stop: 07/19/18 17:00 Zinc Sulfate (Zinc Sulfate) 220 mg PO DAILY [facility] Stop: 09/12/18 08:59 Last Admin: 07/19/18 09:02 Dose: 220 mg General: Alert, Mild distress HEENT: Atraumatic, EOMI Neck: Supple, +2 carotid pulse wo bruit Cardiovascular: Regular rate, Normal S1, Normal S2 Lungs: Other (scattered rales) Abdomen: Bowel sounds, Soft Extremities: Edema ((+) 2-3 edema), Other ((+) 3 bipedal edema) Neurological: Sensation intact Skin: no Rash Psych/Mental Status: Mood NL Nutritional Asmnt/Malnutr-PDOC - Dietary Evaluation Malnutrition Findings (Please click <Entered> for more info): Nutritional Asmnt/Malnutrition Start: 07/13/18 13: 54 Text: Status: Complete Freq: Protocol: Document 07/13/18 13:56 MMERIN (Rec: 07/13/18 14:10 MMERIN NASH- [id number]) Nutritional Asmnt/Malnutrition Patient General Information Nutritional Screening Consult Diagnosis ESRD, anasarca Pertinent Medical Hx/Surgical Hx Seizure, hep C, diabetes, CAD, HTN, CVA, quadreplegia, Parkinsons, ESRD Subjective Information Consult received for "Diabetic ". Per nursing notes, patient receives hemodialysis MWF and patient is non-verbal. Patient with 2+ pitting edema. Current Diet Order/ Nutrition Support Renal diet Patient / S.O Not Indicated Pertinent Medications D50W, D5-0.45NS @50 ml/hr, Glucagon, Novolog Pertinent Labs (07/13) Na 134, BUN 48, Cr 2.9, glucose 41-137, Ca 8.2, BNP 515, albumin 2 Nutritional Hx/Data Height 1.73 m Height (Calculated Centimeters) 172.7 Current Weight (lbs) 113.852 kg Weight (Calculated Kilograms) 113.9 Weight (Calculated Grams) 339025.7 [place] Body Weight 140 % [place] Body Weight 179 Body Mass Index (BMI) 38.1 Recent Weight Change No Weight Status Morbidly Obese GI Symptoms GI Symptoms None Last BM 9/3 x 1 Difficult in: Chewing Food Allergies No Cultural/Ethnic/Jewish Belief none indicated Usual diet at home unknown Skin Integrity/Comment: Arian 10, ulceration on sacrum, left lower leg, abrasion on L heel, scar on right leg. Current %PO Good (75-100%) Estimated Nutritional Goals BEE in Kcals: Adj wt of IBW Calories/Kcals/Kg 27-32 kcal/kg (using 76.2kg ADj wt) Kcals Calculated ~1781-1893 kcal/day Protein g/k.2-1.5 gm/kg using Adj wt Protein Calculated ~90-115 gm/day Fluid: ml Per MD due to HD Nutritional Problem 2. Problem Problem Altered nutrition related lab values related to Etiology episodes of hypoglycemia, electrolyte imbalance aeb Signs/Symptoms: Na 134, glucose 41-137, Ca 8.2 1. Problem Problem Increased nutrient needs related to Etiology hypermetabolic state, impaired skin integrity aeb Signs/Symptoms: Pt on Hemodialysis and with multiple ulcerations Intervention/Recommendation Comments 1. Continue Renal diet as tolerated by patient. No need for DM restriction at this time due to hypoglycemia. 2. Consider fluid restriction due to HD, hyponatremia and edema. 3. Consider adding Prosource 1 packet with each meal for an additional 45gm protein. Expected Outcomes/Goals Expected Outcomes/Goals Oral intake >75% of meals, weight stable or trend toward ideal body weight, nutrition related labs WNL
--- NOTE | 2018-07-19 12:14 | General Progress Note ---
Subjective - Review of Systems Service Date: 07/19/18 Subjective: more awake, mod SOB, verbal Objective - Results Result Diagrams: 07/18/18 09:02 07/18/18 05:20 Recent Labs: Laboratory Last Values WBC 5.6 Th/cmm (4.8-10.8) 07/18/18 09:02 RBC 3.30 Mil/cmm (3.80-5.10) L 07/18/18 09:02 Hgb 9.5 gm/dL (12-16) L 07/18/18 09:02 Hct 29.0 % (41.0-60) L 07/18/18 09:02 MCV 88.0 fl (81-100) 07/18/18 09:02 MCH 28.8 pg (27.0-31.0) 07/18/18 09:02 MCHC Differential 32.7 pg (28.0-36.0) 07/18/18 09:02 RDW 17.1 % (11.5-20.0) 07/18/18 09:02 Plt Count 75 Th/cmm (150-400) L 07/18/18 09:02 MPV 7.7 fl 07/18/18 09:02 Add Manual Diff YES 07/18/18 09:02 Neutrophils % EXPERIMENTAL PLASTICS FABRICATOR 07/16/18 04:50 Band Neutrophils % 1 % (0-10) 07/18/18 09:02 Lymphocytes % EXPERIMENTAL PLASTICS FABRICATOR 07/16/18 04:50 Monocytes % EXPERIMENTAL PLASTICS FABRICATOR 07/16/18 04:50 Eosinophils % EXPERIMENTAL PLASTICS FABRICATOR 07/16/18 04:50 Basophils % EXPERIMENTAL PLASTICS FABRICATOR 07/16/18 04:50 Neutrophils (Manual) 52 % (40-80) 07/18/18 09:02 Lymphocytes 36 % (20-50) 07/18/18 09:02 Monocytes 11 % (2-10) H 07/18/18 09:02 Eosinophils 0 % (0-5) 07/18/18 09:02 Basophils 0 % (0-3) 07/18/18 09:02 Platelet Estimate DECREASED PLATELETS (NORMAL) 07/18/18 09:02 PT 13.7 SECONDS (9.5-11.5) H 07/19/18 05:56 INR 1.34 (0.5-1.4) 07/19/18 05:56 Sodium 135 mEq/L (136-145) L 07/18/18 05:20 Potassium 3.9 mEq/L (3.5-5.1) 07/18/18 05:20 Chloride 105 mEq/L (98-107) 07/18/18 05:20 Carbon Dioxide 22.5 mEq/L (21.0-31.0) 07/18/18 05:20 Anion Gap 11.4 (7.0-16.0) 07/18/18 05:20 BUN 21 mg/dL (7-25) 07/18/18 05:20 Creatinine 2.5 mg/dL (0.6-1.2) H 07/18/18 05:20 Est GFR ( Amer) 26.3 ml/min (>90) 07/18/18 05:20 Est GFR (Non-Af Amer) 21.8 ml/min 07/18/18 05:20 BUN/Creatinine Ratio 8.4 07/18/18 05:20 Glucose 199 mg/dL (70-105) H 07/18/18 05:20 POC Glucose 118 MG/DL (70 - 105) H 07/19/18 11:22 Whole Bld Lactic Acid 1.29 mmol/L (0.60-1.99) 07/12/18 20:50 Calcium 7.6 mg/dL (8.6-10.3) L 07/18/18 05:20 Total Bilirubin 0.3 mg/dL (0.3-1.0) 07/18/18 05:20 AST 18 U/L (13-39) 07/18/18 05:20 ALT 7 U/L (7-52) 07/18/18 05:20 Alkaline Phosphatase 80 U/L (34-104) 07/18/18 05:20 Creatine Kinase 20 U/L (30-223) L 07/12/18 20:50 Troponin I 0.49 ng/mL (0.01-0.05) H* 07/13/18 15:20 B-Natriuretic Peptide 515.0 pg/mL (5.0-100.0) H 07/13/18 04:00 Total Protein 4.0 gm/dL (6.0-8.3) L 07/18/18 05:20 Albumin < 1.5 gm/dL (3.7-5.3) L 07/18/18 05:20 Globulin 2.5 gm/dL 07/18/18 05:20 Albumin/Globulin Ratio 0.6 (1.0-1.8) L 07/18/18 05:20 Triglycerides 53 mg/dL (<150) 07/13/18 04:00 Cholesterol 41 mg/dL (<200) 07/13/18 04:00 LDL Cholesterol Direct 11 mg/dL (75-193) L 07/13/18 04:00 HDL Cholesterol 24 mg/dL (23-92) 07/13/18 04:00 TSH 1.21 uIU/ml (0.34-5.60) 07/13/18 04:00 Urine Source [place] 07/12/18 20:50 Urine Color YELLOW 07/12/18 20:50 Urine Clarity CLOUDY (CLEAR) H 07/12/18 20:50 Urine pH 8.5 (4.6 - 8.0) 07/12/18 20:50 Ur Specific [place] 1.015 (1.005-1.030) 07/12/18 20:50 Urine Protein 100 mg/dL (NEGATIVE) H 07/12/18 20:50 Urine Glucose (UA) NEGATIVE mg/dL (NEGATIVE) 07/12/18 20:50 Urine Ketones NEGATIVE mg/dL (NEGATIVE) 07/12/18 20:50 Urine Blood TRACE (NEGATIVE) 07/12/18 20:50 Urine Nitrate NEGATIVE (NEGATIVE) 07/12/18 20:50 Urine Bilirubin NEGATIVE (NEGATIVE) 07/12/18 20:50 Urine Urobilinogen 0.2 E.U./dL (0.2 - 1.0) 07/12/18 20:50 Ur Leukocyte Esterase LARGE (NEGATIVE) H 07/12/18 20:50 Urine RBC 2-5 /hpf (0-5) 07/12/18 20:50 Urine WBC >100 /hpf (0-5) H 07/12/18 20:50 Ur Epithelial Cells MODERATE /lpf (FEW) 07/12/18 20:50 Urine Bacteria MANY /hpf (NONE SEEN) H 07/12/18 20:50 Random Vancomycin 24.8 ug/mL (5.0-40.0) 07/19/18 05:56 - Physical Exam Vitals and I&O: Vital Signs Temp 97.7 F 07/19/18 11:45 Pulse 98 07/19/18 11:45 Resp 18 07/19/18 11:45 BP 134/52 07/19/18 11:45 Pulse Ox 99 07/19/18 11:45 Intake & Output 07/18/18 07/19/18 07/19/18 18:59 06:59 18:59 Intake Total 550 Output Total 50 Balance 500 Weight (lbs) 114.396 kg Intake: Oral 550 Output: Urine 50 Other: # Bowel Movements 1 Weight Source Bedscale Active Medications: Current Medications Acetaminophen (Tylenol) 650 mg PO Q6H PRN PRN Reason: Pain or Fever >101 Stop: 09/11/18 15:14 Acetaminophen/Hydrocodone Bitart ([place] 5mg/325mg) 1 tab PO Q6H PRN PRN Reason: Pain (Severe) Stop: 09/11/18 15:14 Last Admin: 07/16/18 14:22 Dose: 1 tab Albuterol/Ipratropium (Duoneb Neb) 3 ml HHN Q4HRT PRN PRN Reason: Shortness of Breath or Wheeze Stop: 09/11/18 15:14 Ascorbic Acid (Vitamin C) 500 mg PO DAILY [facility] Stop: 09/12/18 08:59 Last Admin: 07/19/18 09:03 Dose: 500 mg Atorvastatin Calcium (Lipitor) 20 mg PO HS [facility] Stop: 09/11/18 20:59 Last Admin: 07/18/18 20:06 Dose: 20 mg [place] Oil/Swedish Balsam/Trypsin (Venelex) 1 appl TP DAILY [facility] Stop: 09/13/18 08:59 Last Admin: 07/18/18 13:06 Dose: 1 appl Dextrose (Glutose 40%) 18.75 gm PO PRN PRN PRN Reason: Blood Glucose less than 70 Stop: 09/11/18 04:10 Docusate Sodium (Colace) 100 mg PO BID [facility] Stop: 09/11/18 16:59 Last Admin: 07/19/18 09:02 Dose: 100 mg Famotidine (Pepcid) 20 mg PO DAILY [facility] Stop: 09/12/18 08:59 Last Admin: 07/19/18 09:03 Dose: 20 mg Folic Acid (Folate) 1 mg PO DAILY [facility] Stop: 09/12/18 08:59 Last Admin: 07/19/18 09:03 Dose: 1 mg Glucagon (Glucagen) 1 mg IM PRN PRN PRN Reason: Blood Glucose less than 70 Stop: 09/11/18 04:10 Heparin Sodium (Porcine) (Heparin) 5,000 units SUBQ Q12HR [facility] Stop: 09/17/18 20:59 Insulin Aspart (Novolog Insulin Sliding Scale) 0 units SUBQ Q6HR [facility]; Protocol Stop: 09/11/18 05:59 Last Admin: 07/19/18 11:44 Dose: Not Given Lactobacillus Rhamnosus (Culturelle 15b) 1 each PO DAILY [facility] Stop: 09/13/18 13:59 Last Admin: 07/19/18 09:03 Dose: 1 each Levothyroxine Sodium (Synthroid) 0.025 mg PO QDAC [facility] Stop: 09/12/18 07:29 Last Admin: 07/19/18 06:35 Dose: 0.025 mg Miscellaneous (Probiotic Screen) 1 ea PRN PRN PRN Reason: PROTOCOL Stop: 09/13/18 11:44 Miscellaneous (Amikacin Iv Per Pharmacy) 1 [facility] PRN PRN PRN Reason: PROTOCOL Stop: 09/13/18 18:08 Miscellaneous (Vancomycin Iv Per Pharmacy) 1 [facility] PRN [facility] Stop: 09/14/18 18:59 Oxcarbazepine (Trileptal) 600 mg PO BID [facility] Stop: 09/11/18 16:59 Last Admin: 07/19/18 09:03 Dose: 600 mg Risperidone (Risperdal) 2 mg PO HS [facility] Stop: 09/11/18 20:59 Last Admin: 07/18/18 20:06 Dose: 2 mg Senna (Senna) 17.2 mg PO BID [facility] Stop: 09/11/18 16:59 Last Admin: 07/19/18 09:02 Dose: 17.2 mg Sevelamer Carbonate (Renvela) 800 mg PO TIDWM [facility] Stop: 09/11/18 16:59 Last Admin: 07/19/18 08:30 Dose: Not Given Temazepam (Restoril) 15 mg PO HS PRN; Protocol PRN Reason: Insomnia Stop: 09/11/18 15:14 Vitamin B Complex/Vit C/Folic Acid (Vitamin B Complex W/Vitamin C) 1 tab PO DAILY [facility] Stop: 09/12/18 08:59 Last Admin: 07/19/18 09:03 Dose: 1 tab Warfarin Sodium (Coumadin Per Pharmacy) 1 ea [facility] PRN [facility]; Protocol Stop: 09/16/18 14:29 Warfarin Sodium (Coumadin) 5 mg PO C [facility] Stop: 07/19/18 17:00 Zinc Sulfate (Zinc Sulfate) 220 mg PO DAILY [facility] Stop: 09/12/18 08:59 Last Admin: 07/19/18 09:02 Dose: 220 mg General: Alert, Mild distress HEENT: Atraumatic, EOMI Neck: Supple, +2 carotid pulse wo bruit Cardiovascular: Regular rate, Normal S1, Normal S2 Lungs: Other (scattered rales) Abdomen: Bowel sounds, Soft Extremities: Edema ((+) 2-3 edema), Other ((+) 3 bipedal edema) Neurological: Sensation intact Skin: no Rash Psych/Mental Status: Mood NL Assessment/Plan - Assessment Assessment: ESRD on HD Hypothyroid Parkinson Ds. Fnc Quad Hep B,C GERD Left Calf ulcer Sacral Decub ulcer Cholelithiasis B/L HAP w/ effusions Peripheral edema Left SFV DVT - Plan Plan: Lab - Result Diagrams 07/14/18 05:00 07/14/18 05:00 Current Medications Acetaminophen (Tylenol) 650 mg PO Q6H PRN PRN Reason: Pain or Fever >101 Stop: 09/11/18 15:14 Acetaminophen/Hydrocodone Bitart ([place] 5mg/325mg) 1 tab PO Q6H PRN PRN Reason: Pain (Severe) Stop: 09/11/18 15:14 Albuterol/Ipratropium (Duoneb Neb) 3 ml HHN Q4HRT PRN PRN Reason: Shortness of Breath or Wheeze Stop: 09/11/18 15:14 Ascorbic Acid (Vitamin C) 500 mg PO DAILY [facility] Stop: 09/12/18 08:59 Last Admin: 07/14/18 08:27 Dose: 500 mg Atorvastatin Calcium (Lipitor) 20 mg PO HS [facility] Stop: 09/11/18 20:59 Last Admin: 07/13/18 21:05 Dose: 20 mg Dextrose (D50w) 50 ml IVP PRN PRN PRN Reason: Blood Glucose less than 70 Stop: 09/11/18 04:10 Dextrose (Glutose 40%) 18.75 gm PO PRN PRN PRN Reason: Blood Glucose less than 70 Stop: 09/11/18 04:10 Docusate Sodium (Colace) 100 mg PO BID [facility] Stop: 09/11/18 16:59 Last Admin: 07/14/18 08:27 Dose: 100 mg Famotidine (Pepcid) 20 mg PO DAILY [facility] Stop: 09/12/18 08:59 Last Admin: 07/14/18 08:27 Dose: 20 mg Folic Acid (Folate) 1 mg PO DAILY [facility] Stop: 09/12/18 08:59 Last Admin: 07/14/18 08:27 Dose: 1 mg Glucagon (Glucagen) 1 mg IM PRN PRN PRN Reason: Blood Glucose less than 70 Stop: 09/11/18 04:10 Piperacillin Sod/Tazobactam (Sod 2.25 gm/ Sodium Chloride) 50 mls @ 100 mls/hr IV Q6H [facility] Stop: 09/11/18 05:59 Last Admin: 07/14/18 06:05 Dose: Not Given Dextrose/Sodium Chloride (D5-0.45ns) 1,000 mls @ 50 mls/hr IV .Q20H [facility] Stop: 09/11/18 02:29 Last Admin: 07/13/18 04:03 Dose: 50 mls/hr Insulin Aspart (Novolog Insulin Sliding Scale) 0 units SUBQ Q6HR [facility]; Protocol Stop: 09/11/18 05:59 Last Admin: 07/14/18 06:05 Dose: Not Given Levothyroxine Sodium (Synthroid) 0.025 mg PO QDAC [facility] Stop: 09/12/18 07:29 Last Admin: 07/14/18 06:35 Dose: 0.025 mg Miscellaneous (Vancomycin Iv Per Pharmacy) 1 ea [facility] PRN PRN PRN Reason: PROTOCOL Stop: 09/10/18 23:40 Oxcarbazepine (Trileptal) 600 mg PO BID [facility] Stop: 09/11/18 16:59 Last Admin: 07/14/18 08:27 Dose: 600 mg Risperidone (Risperdal) 2 mg PO HS [facility] Stop: 09/11/18 20:59 Last Admin: 07/13/18 21:05 Dose: 2 mg Senna (Senna) 17.2 mg PO BID [facility] Stop: 09/11/18 16:59 Last Admin: 07/14/18 08:27 Dose: 17.2 mg Sevelamer Carbonate (Renvela) 800 mg PO TIDWM [facility] Stop: 09/11/18 16:59 Last Admin: 07/14/18 08:27 Dose: 800 mg Temazepam (Restoril) 15 mg PO HS PRN; Protocol PRN Reason: Insomnia Stop: 09/11/18 15:14 Vitamin B Complex/Vit C/Folic Acid (Vitamin B Complex W/Vitamin C) 1 tab PO DAILY [facility] Stop: 09/12/18 08:59 Last Admin: 07/14/18 08:27 Dose: 1 tab Zinc Sulfate (Zinc Sulfate) 220 mg PO DAILY [facility] Stop: 09/12/18 08:59 Last Admin: 07/14/18 08:27 Dose: 220 mg Lab - Result Diagrams 07/18/18 09:02 07/18/18 05:20 Cr. more elevated w/ peripheral edema continue wound care Pt. will need diverting colostomy to avoid irritation & promote healing of stage 4 sacral decubitus ulcer CXR still w/ persistent CHF, congestion schedule for HD again in am start Coumadin for left leg DVT Nutritional Asmnt/Malnutr-PDOC - Dietary Evaluation Malnutrition Findings (Please click <Entered> for more info): Nutritional Asmnt/Malnutrition Start: 07/13/18 13: 54 Text: Status: Complete Freq: Protocol: Document 07/13/18 13:56 MMULHERN (Rec: 07/13/18 14:10 [email or web address] NASH- [id number]) Nutritional Asmnt/Malnutrition Patient General Information Nutritional Screening Consult Diagnosis ESRD, anasarca Pertinent Medical Hx/Surgical Hx Seizure, hep C, diabetes, CAD, HTN, CVA, quadreplegia, Parkinsons, ESRD Subjective Information Consult received for "Diabetic ". Per nursing notes, patient receives hemodialysis MWF and patient is non-verbal. Patient with 2+ pitting edema. Current Diet Order/ Nutrition Support Renal diet Patient / S.O Not Indicated Pertinent Medications D50W, D5-0.45NS @50 ml/hr, Glucagon, Novolog Pertinent Labs (07/13) Na 134, BUN 48, Cr 2.9, glucose 41-137, Ca 8.2, BNP 515, albumin 2 Nutritional Hx/Data Height 1.73 m Height (Calculated Centimeters) 172.7 Current Weight (lbs) 113.852 kg Weight (Calculated Kilograms) 113.9 Weight (Calculated Grams) 955325.7 [place] Body Weight 140 % [place] Body Weight 179 Body Mass Index (BMI) 38.1 Recent Weight Change No Weight Status Morbidly Obese GI Symptoms GI Symptoms None Last BM 9/3 x 1 Difficult in: Chewing Food Allergies No Cultural/Ethnic/Anglican Belief none indicated Usual diet at home unknown Skin Integrity/Comment: Arian 10, ulceration on sacrum, left lower leg, abrasion on L heel, scar on right leg. Current %PO Good (75-100%) Estimated Nutritional Goals BEE in Kcals: Adj wt of IBW Calories/Kcals/Kg 27-32 kcal/kg (using 76.2kg ADj wt) Kcals Calculated ~5083-4776 kcal/day Protein g/k.2-1.5 gm/kg using Adj wt Protein Calculated ~90-115 gm/day Fluid: ml Per MD due to HD Nutritional Problem 2. Problem Problem Altered nutrition related lab values related to Etiology episodes of hypoglycemia, electrolyte imbalance aeb Signs/Symptoms: Na 134, glucose 41-137, Ca 8.2 1. Problem Problem Increased nutrient needs related to Etiology hypermetabolic state, impaired skin integrity aeb Signs/Symptoms: Pt on Hemodialysis and with multiple ulcerations Intervention/Recommendation Comments 1. Continue Renal diet as tolerated by patient. No need for DM restriction at this time due to hypoglycemia. 2. Consider fluid restriction due to HD, hyponatremia and edema. 3. Consider adding Prosource 1 packet with each meal for an additional 45gm protein. Expected Outcomes/Goals Expected Outcomes/Goals Oral intake >75% of meals, weight stable or trend toward ideal body weight, nutrition related labs WNL
[2018-07-19] MEDS: Venelex 60gm Tube TP SCH (13:52)
[2018-07-19] MEDS: Hydrocodone/APAP 5mg/325mg Tab PO PRN (16:45)
--- NOTE | 2018-07-19 19:35 | Infectious Disease Prog Note ---
Infectious Disease Subjective - Review of Systems Service Date: 07/19/18 Subjective: There is no new change, no fever./ Infectious Disease Objective - Results Result Diagrams: 07/18/18 09:02 07/18/18 05:20 Recent Labs: Laboratory Last Values WBC 5.6 Th/cmm (4.8-10.8) 07/18/18 09:02 RBC 3.30 Mil/cmm (3.80-5.10) L 07/18/18 09:02 Hgb 9.5 gm/dL (12-16) L 07/18/18 09:02 Hct 29.0 % (41.0-60) L 07/18/18 09:02 MCV 88.0 fl (81-100) 07/18/18 09:02 MCH 28.8 pg (27.0-31.0) 07/18/18 09:02 MCHC Differential 32.7 pg (28.0-36.0) 07/18/18 09:02 RDW 17.1 % (11.5-20.0) 07/18/18 09:02 Plt Count 75 Th/cmm (150-400) L 07/18/18 09:02 MPV 7.7 fl 07/18/18 09:02 Add Manual Diff YES 07/18/18 09:02 Neutrophils % NURSE PRACTITIONER PHYSICIAN ASSISTANT 07/16/18 04:50 Band Neutrophils % 1 % (0-10) 07/18/18 09:02 Lymphocytes % NURSE PRACTITIONER PHYSICIAN ASSISTANT 07/16/18 04:50 Monocytes % NURSE PRACTITIONER PHYSICIAN ASSISTANT 07/16/18 04:50 Eosinophils % NURSE PRACTITIONER PHYSICIAN ASSISTANT 07/16/18 04:50 Basophils % NURSE PRACTITIONER PHYSICIAN ASSISTANT 07/16/18 04:50 Neutrophils (Manual) 52 % (40-80) 07/18/18 09:02 Lymphocytes 36 % (20-50) 07/18/18 09:02 Monocytes 11 % (2-10) H 07/18/18 09:02 Eosinophils 0 % (0-5) 07/18/18 09:02 Basophils 0 % (0-3) 07/18/18 09:02 Platelet Estimate DECREASED PLATELETS (NORMAL) 07/18/18 09:02 PT 13.7 SECONDS (9.5-11.5) H 07/19/18 05:56 INR 1.34 (0.5-1.4) 07/19/18 05:56 Sodium 135 mEq/L (136-145) L 07/18/18 05:20 Potassium 3.9 mEq/L (3.5-5.1) 07/18/18 05:20 Chloride 105 mEq/L (98-107) 07/18/18 05:20 Carbon Dioxide 22.5 mEq/L (21.0-31.0) 07/18/18 05:20 Anion Gap 11.4 (7.0-16.0) 07/18/18 05:20 BUN 21 mg/dL (7-25) 07/18/18 05:20 Creatinine 2.5 mg/dL (0.6-1.2) H 07/18/18 05:20 Est GFR ( Amer) 26.3 ml/min (>90) 07/18/18 05:20 Est GFR (Non-Af Amer) 21.8 ml/min 07/18/18 05:20 BUN/Creatinine Ratio 8.4 07/18/18 05:20 Glucose 199 mg/dL (70-105) H 07/18/18 05:20 POC Glucose 171 MG/DL (70 - 105) H 07/19/18 17:08 Whole Bld Lactic Acid 1.29 mmol/L (0.60-1.99) 07/12/18 20:50 Calcium 7.6 mg/dL (8.6-10.3) L 07/18/18 05:20 Total Bilirubin 0.3 mg/dL (0.3-1.0) 07/18/18 05:20 AST 18 U/L (13-39) 07/18/18 05:20 ALT 7 U/L (7-52) 07/18/18 05:20 Alkaline Phosphatase 80 U/L (34-104) 07/18/18 05:20 Creatine Kinase 20 U/L (30-223) L 07/12/18 20:50 Troponin I 0.49 ng/mL (0.01-0.05) H* 07/13/18 15:20 B-Natriuretic Peptide 515.0 pg/mL (5.0-100.0) H 07/13/18 04:00 Total Protein 4.0 gm/dL (6.0-8.3) L 07/18/18 05:20 Albumin < 1.5 gm/dL (3.7-5.3) L 07/18/18 05:20 Globulin 2.5 gm/dL 07/18/18 05:20 Albumin/Globulin Ratio 0.6 (1.0-1.8) L 07/18/18 05:20 Triglycerides 53 mg/dL (<150) 07/13/18 04:00 Cholesterol 41 mg/dL (<200) 07/13/18 04:00 LDL Cholesterol Direct 11 mg/dL (75-193) L 07/13/18 04:00 HDL Cholesterol 24 mg/dL (23-92) 07/13/18 04:00 TSH 1.21 uIU/ml (0.34-5.60) 07/13/18 04:00 Urine Source [place] 07/12/18 20:50 Urine Color YELLOW 07/12/18 20:50 Urine Clarity CLOUDY (CLEAR) H 07/12/18 20:50 Urine pH 8.5 (4.6 - 8.0) 07/12/18 20:50 Ur Specific [place] 1.015 (1.005-1.030) 07/12/18 20:50 Urine Protein 100 mg/dL (NEGATIVE) H 07/12/18 20:50 Urine Glucose (UA) NEGATIVE mg/dL (NEGATIVE) 07/12/18 20:50 Urine Ketones NEGATIVE mg/dL (NEGATIVE) 07/12/18 20:50 Urine Blood TRACE (NEGATIVE) 07/12/18 20:50 Urine Nitrate NEGATIVE (NEGATIVE) 07/12/18 20:50 Urine Bilirubin NEGATIVE (NEGATIVE) 07/12/18 20:50 Urine Urobilinogen 0.2 E.U./dL (0.2 - 1.0) 07/12/18 20:50 Ur Leukocyte Esterase LARGE (NEGATIVE) H 07/12/18 20:50 Urine RBC 2-5 /hpf (0-5) 07/12/18 20:50 Urine WBC >100 /hpf (0-5) H 07/12/18 20:50 Ur Epithelial Cells MODERATE /lpf (FEW) 07/12/18 20:50 Urine Bacteria MANY /hpf (NONE SEEN) H 07/12/18 20:50 Random Vancomycin 24.8 ug/mL (5.0-40.0) 07/19/18 05:56 - Physical Exam Vitals and I&O: Vital Signs Temp 97.8 F 07/19/18 16:14 Pulse 90 07/19/18 16:14 Resp 18 07/19/18 16:14 BP 127/64 07/19/18 16:14 Pulse Ox 99 07/19/18 16:14 Intake & Output 07/19/18 07/19/18 07/20/18 06:59 18:59 06:59 Intake Total 550 Output Total 50 Balance 500 Weight (lbs) 114.396 kg Intake: Oral 550 Output: Urine 50 Other: # Bowel Movements 1 Weight Source Bedscale Active Medications: Current Medications Acetaminophen (Tylenol) 650 mg PO Q6H PRN PRN Reason: Pain or Fever >101 Stop: 09/11/18 15:14 Acetaminophen/Hydrocodone Bitart ([place] 5mg/325mg) 1 tab PO Q6H PRN PRN Reason: Pain (Severe) Stop: 09/11/18 15:14 Last Admin: 07/19/18 16:45 Dose: 1 tab Albuterol/Ipratropium (Duoneb Neb) 3 ml HHN Q4HRT PRN PRN Reason: Shortness of Breath or Wheeze Stop: 09/11/18 15:14 Ascorbic Acid (Vitamin C) 500 mg PO DAILY [facility]KTORIA Stop: 09/12/18 08:59 Last Admin: 07/19/18 09:03 Dose: 500 mg Atorvastatin Calcium (Lipitor) 20 mg PO HS [facility] Stop: 09/11/18 20:59 Last Admin: 07/18/18 20:06 Dose: 20 mg [place] Oil/[place] Balsam/Trypsin (Venelex) 1 appl TP DAILY [facility]KTORIA Stop: 09/13/18 08:59 Last Admin: 07/19/18 13:52 Dose: 1 appl Dextrose (Glutose 40%) 18.75 gm PO PRN PRN PRN Reason: Blood Glucose less than 70 Stop: 09/11/18 04:10 Docusate Sodium (Colace) 100 mg PO BID [facility] Stop: 09/11/18 16:59 Last Admin: 07/19/18 16:45 Dose: 100 mg Famotidine (Pepcid) 20 mg PO DAILY [facility] Stop: 09/12/18 08:59 Last Admin: 07/19/18 09:03 Dose: 20 mg Folic Acid (Folate) 1 mg PO DAILY [facility] Stop: 09/12/18 08:59 Last Admin: 07/19/18 09:03 Dose: 1 mg Glucagon (Glucagen) 1 mg IM PRN PRN PRN Reason: Blood Glucose less than 70 Stop: 09/11/18 04:10 Heparin Sodium (Porcine) (Heparin) 5,000 units SUBQ Q12HR [facility] Stop: 09/17/18 20:59 Insulin Aspart (Novolog Insulin Sliding Scale) 0 units SUBQ Q6HR VIKTORIA; Protocol Stop: 09/11/18 05:59 Last Admin: 07/19/18 17:37 Dose: 2 units Lactobacillus Rhamnosus (Culturelle 15b) 1 each PO DAILY [facility]KTORIA Stop: 09/13/18 13:59 Last Admin: 07/19/18 09:03 Dose: 1 each Levothyroxine Sodium (Synthroid) 0.025 mg PO QDAC [facility] Stop: 09/12/18 07:29 Last Admin: 07/19/18 06:35 Dose: 0.025 mg Miscellaneous (Probiotic Screen) 1 ea PRN PRN PRN Reason: PROTOCOL Stop: 09/13/18 11:44 Miscellaneous (Amikacin Iv Per Pharmacy) 1 [facility] PRN PRN PRN Reason: PROTOCOL Stop: 09/13/18 18:08 Miscellaneous (Vancomycin Iv Per Pharmacy) 1 [facility] PRN VIKTORIA Stop: 09/14/18 18:59 Oxcarbazepine (Trileptal) 600 mg PO BID [facility] Stop: 09/11/18 16:59 Last Admin: 07/19/18 16:45 Dose: 600 mg Risperidone (Risperdal) 2 mg PO HS VIKTORIA Stop: 09/11/18 20:59 Last Admin: 07/18/18 20:06 Dose: 2 mg Senna (Senna) 17.2 mg PO BID [facility]IA Stop: 09/11/18 16:59 Last Admin: 07/19/18 16:45 Dose: 17.2 mg Sevelamer Carbonate (Renvela) 800 mg PO TIDWM [facility] Stop: 09/11/18 16:59 Last Admin: 07/19/18 16:45 Dose: 800 mg Temazepam (Restoril) 15 mg PO HS PRN; Protocol PRN Reason: Insomnia Stop: 09/11/18 15:14 Vitamin B Complex/Vit C/Folic Acid (Vitamin B Complex W/Vitamin C) 1 tab PO DAILY VIKTORIA Stop: 09/12/18 08:59 Last Admin: 07/19/18 09:03 Dose: 1 tab Warfarin Sodium (Coumadin Per Pharmacy) 1 ea [facility] PRN VIKTORIA; Protocol Stop: 09/16/18 14:29 Zinc Sulfate (Zinc Sulfate) 220 mg PO DAILY VIKTORIA Stop: 09/12/18 08:59 Last Admin: 07/19/18 09:02 Dose: 220 mg General: no acute distress, well developed, well nourished HEENT: atraumatic, normocephalic, PERRLA Neck: supple, no thyromegaly Cardiovascular: S1S2, regular, systolic murmur Lungs: clear to auscultation bilaterally, clear to percussion Abdomen: soft, no tender, no distended, no hepatomegaly Extremities: no cyanosis, no clubbing, no edema Neurological: awake, alert, oriented Skin: other (sacral stage 4 wound) Infectious Disease Assmt/Plan - Assessment Assessment: 1. UTI 2. Staph CN in blood contaminant. 3. Hypoglycemia. 4. Diabetes mellitus type 1 with episodes of hypoglycemia. 5. Hypertension. 6. Anemia of chronic disease. 7. Coronary artery disease, 8. CHF.. 9. Anasarca 10. 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 11. sacral stage 4 wound. - Plan Plan: Continue amikacin. add tygacil. wound care. Nutritional Asmnt/Malnutr-PDOC - Dietary Evaluation Malnutrition Findings (Please click <Entered> for more info): Nutritional Asmnt/Malnutrition Start: 07/13/18 13: 54 Text: Status: Complete Freq: Protocol: Document 07/13/18 13:56 ALDAIR (Rec: 07/13/18 14:10 ALDAIR NASH- [id number]) Nutritional Asmnt/Malnutrition Patient General Information Nutritional Screening Consult Diagnosis ESRD, anasarca Pertinent Medical Hx/Surgical Hx Seizure, hep C, diabetes, CAD, HTN, CVA, quadreplegia, Parkinsons, ESRD Subjective Information Consult received for "Diabetic ". Per nursing notes, patient receives hemodialysis MWF and patient is non-verbal. Patient with 2+ pitting edema. Current Diet Order/ Nutrition Support Renal diet Patient / S.O Not Indicated Pertinent Medications D50W, D5-0.45NS @50 ml/hr, Glucagon, Novolog Pertinent Labs (07/13) Na 134, BUN 48, Cr 2.9, glucose 41-137, Ca 8.2, BNP 515, albumin 2 Nutritional Hx/Data Height 1.73 m Height (Calculated Centimeters) 172.7 Current Weight (lbs) 113.852 kg Weight (Calculated Kilograms) 113.9 Weight (Calculated Grams) 759705.7 [place] Body Weight 140 % [place] Body Weight 179 Body Mass Index (BMI) 38.1 Recent Weight Change No Weight Status Morbidly Obese GI Symptoms GI Symptoms None Last BM 9/ x 1 Difficult in: Chewing Food Allergies No Cultural/Ethnic/[employer]ist Belief none indicated Usual diet at home unknown Skin Integrity/Comment: Arian 10, ulceration on sacrum, left lower leg, abrasion on L heel, scar on right leg. Current %PO Good (75-100%) Estimated Nutritional Goals BEE in Kcals: Adj wt of IBW Calories/Kcals/Kg 27-32 kcal/kg (using 76.2kg ADj wt) Kcals Calculated ~5710-1911 kcal/day Protein g/k.2-1.5 gm/kg using Adj wt Protein Calculated ~90-115 gm/day Fluid: ml Per MD due to HD Nutritional Problem 2. Problem Problem Altered nutrition related lab values related to Etiology episodes of hypoglycemia, electrolyte imbalance aeb Signs/Symptoms: Na 134, glucose 41-137, Ca 8.2 1. Problem Problem Increased nutrient needs related to Etiology hypermetabolic state, impaired skin integrity aeb Signs/Symptoms: Pt on Hemodialysis and with multiple ulcerations Intervention/Recommendation Comments 1. Continue Renal diet as tolerated by patient. No need for DM restriction at this time due to hypoglycemia. 2. Consider fluid restriction due to HD, hyponatremia and edema. 3. Consider adding Prosource 1 packet with each meal for an additional 45gm protein. Expected Outcomes/Goals Expected Outcomes/Goals Oral intake >75% of meals, weight stable or trend toward ideal body weight, nutrition related labs WNL
[2018-07-19] MEDS: Atorvastatin Calcium 10 MG TAB PO SCH (20:23)
[2018-07-20] MEDS: INSULIN ASPART SLIDING SCALE 100 UNITS/ML UNIT SUBQ SCH ×4 (00:04→18:08)
[2018-07-20 05:37] LABS: % BASOPHILS 0.2 % (0.0-2.0); % EOSINOPHILS 1.7 % (0.0-5.0); % LYMPHOCYTES 38.9 % (20.0-50.0); % MONOCYTES 11.7 % (2.0-10.0); % NEUTROPHILS 47.5 % (40.0-80.0); EOSINOPHILE ABSOLUTE 0.1 Th/cmm (0.1-0.4); HEMATOCRIT 24.2 % (41.0-60); LYMPHOCYTE ABSOLUTE 1.8 Th/cmm (1.5-3.0); MEAN CELL VOLUME 88.4 fl (81-100); MEAN CORPUSCULAR HEMOGLOBIN 29.1 pg (27.0-31.0); MEAN CORPUSCULAR HGB CONC 32.9 pg (28.0-36.0); MEAN PLATELET VOLUME 8.5 fl; MONOCYTE ABSOLUTE 0.5 Th/cmm (0.3-1.0); NEUTROPHILE ABSOLUTE 2.3 Th/cmm (1.8-8.0); PLATELET COUNT 98 Th/cmm (150-400); RED BLOOD COUNT 2.74 Mil/cmm (3.80-5.10); RED CELL DISTRIBUTION WIDTH 17.1 % (11.5-20.0); WHITE BLOOD COUNT 4.7 Th/cmm (4.8-10.8)
[2018-07-20 05:50] LABS: ANION GAP 9.8 (7.0-16.0); CALCIUM SERUM 8.2 mg/dL (8.6-10.3); CARBON DIOXIDE 24.6 mEq/L (21.0-31.0); CREATININE - SERUM 2.6 mg/dL (0.6-1.2); GFR AFRICAN-AMERICAN 25.2 ml/min (>90); GFR NON AFRICAN-AMERICAN 20.8 ml/min; POTASSIUM SERUM 3.4 mEq/L (3.5-5.1)
[2018-07-20] MEDS: Levothyroxine 0.025 Mg Tab PO SCH (06:47)
[2018-07-20 08:34] LABS: INR 2.47 (0.5-1.4); PROTHROMBIN TIME (TEST) 24.6 SECONDS (9.5-11.5)
[2018-07-20] MEDS: Venelex 60gm Tube TP SCH (10:52)
[2018-07-20] MEDS: Docusate Sodium 100 mg/10 mL UD PO SCH ×2 (10:52→17:26)
[2018-07-20] MEDS: Hydrocodone/APAP 5mg/325mg Tab PO PRN (10:52)
[2018-07-20] MEDS: Lactobacillus Rhamnosus GG 15 Billion CFU CAP.SPRINK PO SCH (10:53)
[2018-07-20] MEDS: Vitamin B Complex w/Vitamin C Tab PO SCH (10:54)
--- NOTE | 2018-07-20 12:14 | Infectious Disease Prog Note ---
Infectious Disease Subjective - Review of Systems Service Date: 07/20/18 Subjective: There is no new change, no fever./ Infectious Disease Objective - Results Result Diagrams: 07/21/18 05:00 07/21/18 05:00 Recent Labs: Laboratory Last Values WBC 4.7 Th/cmm (4.8-10.8) L 07/20/18 04:45 RBC 2.74 Mil/cmm (3.80-5.10) L 07/20/18 04:45 Hgb 8.0 gm/dL (12-16) L 07/20/18 04:45 Hct 24.2 % (41.0-60) L 07/20/18 04:45 MCV 88.4 fl (81-100) 07/20/18 04:45 MCH 29.1 pg (27.0-31.0) 07/20/18 04:45 MCHC Differential 32.9 pg (28.0-36.0) 07/20/18 04:45 RDW 17.1 % (11.5-20.0) 07/20/18 04:45 Plt Count 98 Th/cmm (150-400) L 07/20/18 04:45 MPV 8.5 fl 07/20/18 04:45 Add Manual Diff YES 07/18/18 09:02 Neutrophils % 47.5 % (40.0-80.0) 07/20/18 04:45 Band Neutrophils % 1 % (0-10) 07/18/18 09:02 Lymphocytes % 38.9 % (20.0-50.0) 07/20/18 04:45 Monocytes % 11.7 % (2.0-10.0) H 07/20/18 04:45 Eosinophils % 1.7 % (0.0-5.0) 07/20/18 04:45 Basophils % 0.2 % (0.0-2.0) 07/20/18 04:45 Neutrophils (Manual) 52 % (40-80) 07/18/18 09:02 Lymphocytes 36 % (20-50) 07/18/18 09:02 Monocytes 11 % (2-10) H 07/18/18 09:02 Eosinophils 0 % (0-5) 07/18/18 09:02 Basophils 0 % (0-3) 07/18/18 09:02 Platelet Estimate DECREASED PLATELETS (NORMAL) 07/18/18 09:02 PT 24.6 SECONDS (9.5-11.5) H 07/20/18 08:08 INR 2.47 (0.5-1.4) H 07/20/18 08:08 PTT (Actin FS) 43.0 SECONDS (26.0-38.0) H 07/20/18 08:08 Sodium 136 mEq/L (136-145) 07/20/18 04:45 Potassium 3.4 mEq/L (3.5-5.1) L 07/20/18 04:45 Chloride 105 mEq/L (98-107) 07/20/18 04:45 Carbon Dioxide 24.6 mEq/L (21.0-31.0) 07/20/18 04:45 Anion Gap 9.8 (7.0-16.0) 07/20/18 04:45 BUN 15 mg/dL (7-25) 07/20/18 04:45 Creatinine 2.6 mg/dL (0.6-1.2) H 07/20/18 04:45 Est GFR ( Amer) 25.2 ml/min (>90) 07/20/18 04:45 Est GFR (Non-Af Amer) 20.8 ml/min 07/20/18 04:45 BUN/Creatinine Ratio 5.8 07/20/18 04:45 Glucose 155 mg/dL (70-105) H 07/20/18 04:45 POC Glucose 171 MG/DL (70 - 105) H 07/19/18 17:08 Whole Bld Lactic Acid 1.29 mmol/L (0.60-1.99) 07/12/18 20:50 Calcium 8.2 mg/dL (8.6-10.3) L 07/20/18 04:45 Total Bilirubin 0.3 mg/dL (0.3-1.0) 07/18/18 05:20 AST 18 U/L (13-39) 07/18/18 05:20 ALT 7 U/L (7-52) 07/18/18 05:20 Alkaline Phosphatase 80 U/L (34-104) 07/18/18 05:20 Creatine Kinase 20 U/L (30-223) L 07/12/18 20:50 Troponin I 0.49 ng/mL (0.01-0.05) H* 07/13/18 15:20 B-Natriuretic Peptide 515.0 pg/mL (5.0-100.0) H 07/13/18 04:00 Total Protein 4.0 gm/dL (6.0-8.3) L 07/18/18 05:20 Albumin < 1.5 gm/dL (3.7-5.3) L 07/18/18 05:20 Globulin 2.5 gm/dL 07/18/18 05:20 Albumin/Globulin Ratio 0.6 (1.0-1.8) L 07/18/18 05:20 Triglycerides 53 mg/dL (<150) 07/13/18 04:00 Cholesterol 41 mg/dL (<200) 07/13/18 04:00 LDL Cholesterol Direct 11 mg/dL (75-193) L 07/13/18 04:00 HDL Cholesterol 24 mg/dL (23-92) 07/13/18 04:00 TSH 1.21 uIU/ml (0.34-5.60) 07/13/18 04:00 Urine Source [place] 07/12/18 20:50 Urine Color YELLOW 07/12/18 20:50 Urine Clarity CLOUDY (CLEAR) H 07/12/18 20:50 Urine pH 8.5 (4.6 - 8.0) 07/12/18 20:50 Ur Specific [place] 1.015 (1.005-1.030) 07/12/18 20:50 Urine Protein 100 mg/dL (NEGATIVE) H 07/12/18 20:50 Urine Glucose (UA) NEGATIVE mg/dL (NEGATIVE) 07/12/18 20:50 Urine Ketones NEGATIVE mg/dL (NEGATIVE) 07/12/18 20:50 Urine Blood TRACE (NEGATIVE) 07/12/18 20:50 Urine Nitrate NEGATIVE (NEGATIVE) 07/12/18 20:50 Urine Bilirubin NEGATIVE (NEGATIVE) 07/12/18 20:50 Urine Urobilinogen 0.2 E.U./dL (0.2 - 1.0) 07/12/18 20:50 Ur Leukocyte Esterase LARGE (NEGATIVE) H 07/12/18 20:50 Urine RBC 2-5 /hpf (0-5) 07/12/18 20:50 Urine WBC >100 /hpf (0-5) H 07/12/18 20:50 Ur Epithelial Cells MODERATE /lpf (FEW) 07/12/18 20:50 Urine Bacteria MANY /hpf (NONE SEEN) H 07/12/18 20:50 Amikacin Peak 16.9 ug/mL (20.0-30.0) L 07/19/18 10:15 Amikacin Trough 5.5 ug/mL (1.0-8.0) 07/18/18 18:30 Random Vancomycin 20.7 ug/mL (5.0-40.0) 07/20/18 04:45 - Physical Exam Vitals and I&O: Vital Signs Temp 97.6 F 07/20/18 11:44 Pulse 83 07/20/18 11:44 Resp 18 07/20/18 11:44 BP 139/67 07/20/18 11:44 Pulse Ox 98 07/20/18 11:44 Intake & Output 07/19/18 07/20/18 07/20/18 18:59 06:59 18:59 Intake Total 100 360 Balance 100 360 Weight (lbs) 114.305 kg Intake: Intake, IV Amount 100 Oral 360 Other: Stool Characteristics Soft Brown Weight Source Bedscale Active Medications: Current Medications Acetaminophen (Tylenol) 650 mg PO Q6H PRN PRN Reason: Pain or Fever >101 Stop: 09/11/18 15:14 Acetaminophen/Hydrocodone Bitart ([place] 5mg/325mg) 1 tab PO Q6H PRN PRN Reason: Pain (Severe) Stop: 09/11/18 15:14 Last Admin: 07/20/18 10:52 Dose: 1 tab Albuterol/Ipratropium (Duoneb Neb) 3 ml HHN Q4HRT PRN PRN Reason: Shortness of Breath or Wheeze Stop: 09/11/18 15:14 Ascorbic Acid (Vitamin C) 500 mg PO DAILY VIKTORIA Stop: 09/12/18 08:59 Last Admin: 07/20/18 10:52 Dose: 500 mg Atorvastatin Calcium (Lipitor) 20 mg PO HS VIKTORIA Stop: 09/11/18 20:59 Last Admin: 07/19/18 20:23 Dose: 20 mg [place] Oil/[place] Balsam/Trypsin (Venelex) 1 appl TP DAILY VIKTORIA Stop: 09/13/18 08:59 Last Admin: 07/20/18 10:52 Dose: 1 appl Dextrose (Glutose 40%) 18.75 gm PO PRN PRN PRN Reason: Blood Glucose less than 70 Stop: 09/11/18 04:10 Docusate Sodium (Colace) 100 mg PO BID [facility] Stop: 09/11/18 16:59 Last Admin: 07/20/18 10:52 Dose: 100 mg Famotidine (Pepcid) 20 mg PO DAILY VIKTORIA Stop: 09/12/18 08:59 Last Admin: 07/20/18 10:52 Dose: 20 mg Folic Acid (Folate) 1 mg PO DAILY VIKTORIA Stop: 09/12/18 08:59 Last Admin: 07/20/18 10:52 Dose: 1 mg Glucagon (Glucagen) 1 mg IM PRN PRN PRN Reason: Blood Glucose less than 70 Stop: 09/11/18 04:10 Heparin Sodium (Porcine) (Heparin) 5,000 units SUBQ Q12HR [facility] Stop: 09/17/18 20:59 Last Admin: 07/20/18 10:53 Dose: Not Given Tigecycline 50 mg/ Sodium (Chloride) 100 mls @ 100 mls/hr IV Q12HR [facility] Stop: 07/26/18 08:59 Last Admin: 07/20/18 10:54 Dose: 100 mls/hr Vancomycin HCl 1 gm/ Sodium (Chloride) 250 mls @ 165 mls/hr IV ONCE ONE Stop: 07/20/18 15:30 Amikacin Sulfate 750 mg/ (Dextrose) 103 mls @ 100 mls/hr IV ONCE ONE Stop: 07/20/18 17:01 Insulin Aspart (Novolog Insulin Sliding Scale) 0 units SUBQ Q6HR [facility]; Protocol Stop: 09/11/18 05:59 Last Admin: 07/20/18 06:12 Dose: Not Given Lactobacillus Rhamnosus (Culturelle 15b) 1 each PO DAILY [facility] Stop: 09/13/18 13:59 Last Admin: 07/20/18 10:53 Dose: 1 each Levothyroxine Sodium (Synthroid) 0.025 mg PO QDAC [facility] Stop: 09/12/18 07:29 Last Admin: 07/20/18 06:47 Dose: Not Given Miscellaneous (Probiotic Screen) 1 ea [facility] PRN PRN PRN Reason: PROTOCOL Stop: 09/13/18 11:44 Miscellaneous (Amikacin Iv Per Pharmacy) 1 [facility] PRN PRN PRN Reason: PROTOCOL Stop: 09/13/18 18:08 Miscellaneous (Vancomycin Iv Per Pharmacy) 1 [facility] PRN VIKTORIA Stop: 09/14/18 18:59 Oxcarbazepine (Trileptal) 600 mg PO BID [facility] Stop: 09/11/18 16:59 Last Admin: 07/20/18 10:53 Dose: 600 mg Risperidone (Risperdal) 2 mg PO HS [facility] Stop: 09/11/18 20:59 Last Admin: 07/19/18 20:23 Dose: 2 mg Senna (Senna) 17.2 mg PO BID [facility] Stop: 09/11/18 16:59 Last Admin: 07/20/18 10:53 Dose: 17.2 mg Sevelamer Carbonate (Renvela) 800 mg PO TIDWM [facility] Stop: 09/11/18 16:59 Last Admin: 07/20/18 10:52 Dose: 800 mg Temazepam (Restoril) 15 mg PO HS PRN; Protocol PRN Reason: Insomnia Stop: 09/11/18 15:14 Last Admin: 07/20/18 02:05 Dose: 15 mg Vitamin B Complex/Vit C/Folic Acid (Vitamin B Complex W/Vitamin C) 1 tab PO DAILY [facility]KTORIA Stop: 09/12/18 08:59 Last Admin: 07/20/18 10:54 Dose: 1 tab Warfarin Sodium (Coumadin Per Pharmacy) 1 [facility] PRN VIKTORIA; Protocol Stop: 09/16/18 14:29 Warfarin Sodium (Coumadin) 0.5 mg PO ONCE ONE Stop: 07/20/18 13:01 Zinc Sulfate (Zinc Sulfate) 220 mg PO DAILY VIKTORIA Stop: 09/12/18 08:59 Last Admin: 07/20/18 10:54 Dose: 220 mg General: no acute distress, well developed, well nourished HEENT: atraumatic, normocephalic, PERRLA, EOMI Neck: supple, no thyromegaly, no lymphadenopathy, no rigid Cardiovascular: S1S2, regular Lungs: clear to auscultation bilaterally, clear to percussion Abdomen: soft, no tender, no distended Extremities: no cyanosis, no clubbing, no edema Neurological: awake, alert, oriented Skin: intact Infectious Disease Assmt/Plan - Assessment Assessment: 1. UTI 2. Staph CN in blood contaminant. 3. Hypoglycemia. 4. Diabetes mellitus type 1 with episodes of hypoglycemia. 5. Hypertension. 6. Anemia of chronic disease. 7. Coronary artery disease, 8. CHF.. 9. Anasarca 10. 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 11. sacral stage 4 wound. - Plan Plan: Continue amikacin and tygacil. wound care. Nutritional Asmnt/Malnutr-PDOC - Dietary Evaluation Malnutrition Findings (Please click <Entered> for more info): Nutritional Asmnt/Malnutrition Start: 07/13/18 13: 54 Text: Status: Complete Freq: Protocol: Document 07/13/18 13:56 MMULNACHO (Rec: 07/13/18 14:10 MMULNACHO NASH- FNS1) Nutritional Asmnt/Malnutrition Patient General Information Nutritional Screening Consult Diagnosis ESRD, anasarca Pertinent Medical Hx/Surgical Hx Seizure, hep C, diabetes, CAD, HTN, CVA, quadreplegia, Parkinsons, ESRD Subjective Information Consult received for "Diabetic ". Per nursing notes, patient receives hemodialysis MWF and patient is non-verbal. Patient with 2+ pitting edema. Current Diet Order/ Nutrition Support Renal diet Patient / S.O Not Indicated Pertinent Medications D50W, D5-0.45NS @50 ml/hr, Glucagon, Novolog Pertinent Labs (07/13) Na 134, BUN 48, Cr 2.9, glucose 41-137, Ca 8.2, BNP 515, albumin 2 Nutritional Hx/Data Height 1.73 m Height (Calculated Centimeters) 172.7 Current Weight (lbs) 113.852 kg Weight (Calculated Kilograms) 113.9 Weight (Calculated Grams) 405424.7 [place] Body Weight 140 % [place] Body Weight 179 Body Mass Index (BMI) 38.1 Recent Weight Change No Weight Status Morbidly Obese GI Symptoms GI Symptoms None Last BM 07/13 x 1 Difficult in: Chewing Food Allergies No Cultural/Ethnic/[employer] Belief none indicated Usual diet at home unknown Skin Integrity/Comment: Arian 10, ulceration on sacrum, left lower leg, abrasion on L heel, scar on right leg. Current %PO Good (75-100%) Estimated Nutritional Goals BEE in Kcals: Adj wt of IBW Calories/Kcals/Kg 27-32 kcal/kg (using 76.2kg ADj wt) Kcals Calculated ~7680-9576 kcal/day Protein g/k.2-1.5 gm/kg using Adj wt Protein Calculated ~90-115 gm/day Fluid: ml Per MD due to HD Nutritional Problem 2. Problem Problem Altered nutrition related lab values related to Etiology episodes of hypoglycemia, electrolyte imbalance aeb Signs/Symptoms: Na 134, glucose 41-137, Ca 8.2 1. Problem Problem Increased nutrient needs related to Etiology hypermetabolic state, impaired skin integrity aeb Signs/Symptoms: Pt on Hemodialysis and with multiple ulcerations Intervention/Recommendation Comments 1. Continue Renal diet as tolerated by patient. No need for DM restriction at this time due to hypoglycemia. 2. Consider fluid restriction due to HD, hyponatremia and edema. 3. Consider adding Prosource 1 packet with each meal for an additional 45gm protein. Expected Outcomes/Goals Expected Outcomes/Goals Oral intake >75% of meals, weight stable or trend toward ideal body weight, nutrition related labs WNL
[2018-07-20] MEDS ORDERED: Potassium Chloride Elixir 20 mEq /15 mL UDC GT ONE (13:15)
--- NOTE | 2018-07-20 13:21 | General Progress Note ---
Subjective - Review of Systems Service Date: 07/20/18 Subjective: more awake, mod SOB, verbal Objective - Results Result Diagrams: 07/20/18 04:45 07/20/18 04:45 Recent Labs: Laboratory Last Values WBC 4.7 Th/cmm (4.8-10.8) L 07/20/18 04:45 RBC 2.74 Mil/cmm (3.80-5.10) L 07/20/18 04:45 Hgb 8.0 gm/dL (12-16) L 07/20/18 04:45 Hct 24.2 % (41.0-60) L 07/20/18 04:45 MCV 88.4 fl (81-100) 07/20/18 04:45 MCH 29.1 pg (27.0-31.0) 07/20/18 04:45 MCHC Differential 32.9 pg (28.0-36.0) 07/20/18 04:45 RDW 17.1 % (11.5-20.0) 07/20/18 04:45 Plt Count 98 Th/cmm (150-400) L 07/20/18 04:45 MPV 8.5 fl 07/20/18 04:45 Add Manual Diff YES 07/18/18 09:02 Neutrophils % 47.5 % (40.0-80.0) 07/20/18 04:45 Band Neutrophils % 1 % (0-10) 07/18/18 09:02 Lymphocytes % 38.9 % (20.0-50.0) 07/20/18 04:45 Monocytes % 11.7 % (2.0-10.0) H 07/20/18 04:45 Eosinophils % 1.7 % (0.0-5.0) 07/20/18 04:45 Basophils % 0.2 % (0.0-2.0) 07/20/18 04:45 Neutrophils (Manual) 52 % (40-80) 07/18/18 09:02 Lymphocytes 36 % (20-50) 07/18/18 09:02 Monocytes 11 % (2-10) H 07/18/18 09:02 Eosinophils 0 % (0-5) 07/18/18 09:02 Basophils 0 % (0-3) 07/18/18 09:02 Platelet Estimate DECREASED PLATELETS (NORMAL) 07/18/18 09:02 PT 24.6 SECONDS (9.5-11.5) H 07/20/18 08:08 INR 2.47 (0.5-1.4) H 07/20/18 08:08 PTT (Actin FS) 43.0 SECONDS (26.0-38.0) H 07/20/18 08:08 Sodium 136 mEq/L (136-145) 07/20/18 04:45 Potassium 3.4 mEq/L (3.5-5.1) L 07/20/18 04:45 Chloride 105 mEq/L (98-107) 07/20/18 04:45 Carbon Dioxide 24.6 mEq/L (21.0-31.0) 07/20/18 04:45 Anion Gap 9.8 (7.0-16.0) 07/20/18 04:45 BUN 15 mg/dL (7-25) 07/20/18 04:45 Creatinine 2.6 mg/dL (0.6-1.2) H 07/20/18 04:45 Est GFR ( Amer) 25.2 ml/min (>90) 07/20/18 04:45 Est GFR (Non-Af Amer) 20.8 ml/min 07/20/18 04:45 BUN/Creatinine Ratio 5.8 07/20/18 04:45 Glucose 155 mg/dL (70-105) H 07/20/18 04:45 POC Glucose 171 MG/DL (70 - 105) H 07/19/18 17:08 Whole Bld Lactic Acid 1.29 mmol/L (0.60-1.99) 07/12/18 20:50 Calcium 8.2 mg/dL (8.6-10.3) L 07/20/18 04:45 Total Bilirubin 0.3 mg/dL (0.3-1.0) 07/18/18 05:20 AST 18 U/L (13-39) 07/18/18 05:20 ALT 7 U/L (7-52) 07/18/18 05:20 Alkaline Phosphatase 80 U/L (34-104) 07/18/18 05:20 Creatine Kinase 20 U/L (30-223) L 07/12/18 20:50 Troponin I 0.49 ng/mL (0.01-0.05) H* 07/13/18 15:20 B-Natriuretic Peptide 515.0 pg/mL (5.0-100.0) H 07/13/18 04:00 Total Protein 4.0 gm/dL (6.0-8.3) L 07/18/18 05:20 Albumin < 1.5 gm/dL (3.7-5.3) L 07/18/18 05:20 Globulin 2.5 gm/dL 07/18/18 05:20 Albumin/Globulin Ratio 0.6 (1.0-1.8) L 07/18/18 05:20 Triglycerides 53 mg/dL (<150) 07/13/18 04:00 Cholesterol 41 mg/dL (<200) 07/13/18 04:00 LDL Cholesterol Direct 11 mg/dL (75-193) L 07/13/18 04:00 HDL Cholesterol 24 mg/dL (23-92) 07/13/18 04:00 TSH 1.21 uIU/ml (0.34-5.60) 07/13/18 04:00 Urine Source [place] 07/12/18 20:50 Urine Color YELLOW 07/12/18 20:50 Urine Clarity CLOUDY (CLEAR) H 07/12/18 20:50 Urine pH 8.5 (4.6 - 8.0) 07/12/18 20:50 Ur Specific [place] 1.015 (1.005-1.030) 07/12/18 20:50 Urine Protein 100 mg/dL (NEGATIVE) H 07/12/18 20:50 Urine Glucose (UA) NEGATIVE mg/dL (NEGATIVE) 07/12/18 20:50 Urine Ketones NEGATIVE mg/dL (NEGATIVE) 07/12/18 20:50 Urine Blood TRACE (NEGATIVE) 07/12/18 20:50 Urine Nitrate NEGATIVE (NEGATIVE) 07/12/18 20:50 Urine Bilirubin NEGATIVE (NEGATIVE) 07/12/18 20:50 Urine Urobilinogen 0.2 E.U./dL (0.2 - 1.0) 07/12/18 20:50 Ur Leukocyte Esterase LARGE (NEGATIVE) H 07/12/18 20:50 Urine RBC 2-5 /hpf (0-5) 07/12/18 20:50 Urine WBC >100 /hpf (0-5) H 07/12/18 20:50 Ur Epithelial Cells MODERATE /lpf (FEW) 07/12/18 20:50 Urine Bacteria MANY /hpf (NONE SEEN) H 07/12/18 20:50 Amikacin Peak 16.9 ug/mL (20.0-30.0) L 07/19/18 10:15 Amikacin Trough 5.5 ug/mL (1.0-8.0) 07/18/18 18:30 Random Vancomycin 20.7 ug/mL (5.0-40.0) 07/20/18 04:45 - Physical Exam Vitals and I&O: Vital Signs Temp 97.6 F 07/20/18 11:44 Pulse 83 07/20/18 11:44 Resp 18 07/20/18 11:44 BP 139/67 07/20/18 11:44 Pulse Ox 98 07/20/18 11:44 Intake & Output 07/19/18 07/20/18 07/20/18 18:59 06:59 18:59 Intake Total 100 360 Balance 100 360 Weight (lbs) 114.305 kg Intake: Intake, IV Amount 100 Oral 360 Other: Stool Characteristics Soft Brown Weight Source Bedscale Active Medications: Current Medications Acetaminophen (Tylenol) 650 mg PO Q6H PRN PRN Reason: Pain or Fever >101 Stop: 09/11/18 15:14 Acetaminophen/Hydrocodone Bitart ([place] 5mg/325mg) 1 tab PO Q6H PRN PRN Reason: Pain (Severe) Stop: 09/11/18 15:14 Last Admin: 07/20/18 10:52 Dose: 1 tab Albuterol/Ipratropium (Duoneb Neb) 3 ml HHN Q4HRT PRN PRN Reason: Shortness of Breath or Wheeze Stop: 09/11/18 15:14 Ascorbic Acid (Vitamin C) 500 mg PO DAILY [facility] Stop: 09/12/18 08:59 Last Admin: 07/20/18 10:52 Dose: 500 mg Atorvastatin Calcium (Lipitor) 20 mg PO HS [facility] Stop: 09/11/18 20:59 Last Admin: 07/19/18 20:23 Dose: 20 mg Ethan Oil/Liberian Balsam/Trypsin (Venelex) 1 appl TP DAILY [facility] Stop: 09/13/18 08:59 Last Admin: 07/20/18 10:52 Dose: 1 appl Dextrose (Glutose 40%) 18.75 gm PO PRN PRN PRN Reason: Blood Glucose less than 70 Stop: 09/11/18 04:10 Docusate Sodium (Colace) 100 mg PO BID [facility] Stop: 09/11/18 16:59 Last Admin: 07/20/18 10:52 Dose: 100 mg Famotidine (Pepcid) 20 mg PO DAILY [facility] Stop: 09/12/18 08:59 Last Admin: 07/20/18 10:52 Dose: 20 mg Folic Acid (Folate) 1 mg PO DAILY [facility] Stop: 09/12/18 08:59 Last Admin: 07/20/18 10:52 Dose: 1 mg Glucagon (Glucagen) 1 mg IM PRN PRN PRN Reason: Blood Glucose less than 70 Stop: 09/11/18 04:10 Heparin Sodium (Porcine) (Heparin) 5,000 units SUBQ Q12HR [facility] Stop: 09/17/18 20:59 Last Admin: 07/20/18 10:53 Dose: Not Given Tigecycline 50 mg/ Sodium (Chloride) 100 mls @ 100 mls/hr IV Q12HR [facility] Stop: 07/26/18 08:59 Last Admin: 07/20/18 10:54 Dose: 100 mls/hr Vancomycin HCl 1 gm/ Sodium (Chloride) 250 mls @ 165 mls/hr IV ONCE ONE Stop: 07/20/18 15:30 Amikacin Sulfate 750 mg/ (Dextrose) 103 mls @ 100 mls/hr IV ONCE ONE Stop: 07/20/18 17:01 Insulin Aspart (Novolog Insulin Sliding Scale) 0 units SUBQ Q6HR [facility]; Protocol Stop: 09/11/18 05:59 Last Admin: 07/20/18 06:12 Dose: Not Given Lactobacillus Rhamnosus (Culturelle 15b) 1 each PO DAILY [facility] Stop: 09/13/18 13:59 Last Admin: 07/20/18 10:53 Dose: 1 each Levothyroxine Sodium (Synthroid) 0.025 mg PO QDAC [facility] Stop: 09/12/18 07:29 Last Admin: 07/20/18 06:47 Dose: Not Given Miscellaneous (Probiotic Screen) 1 ea MC PRN PRN PRN Reason: PROTOCOL Stop: 09/13/18 11:44 Miscellaneous (Amikacin Iv Per Pharmacy) 1 [facility] PRN PRN PRN Reason: PROTOCOL Stop: 09/13/18 18:08 Miscellaneous (Vancomycin Iv Per Pharmacy) 1 [facility] PRN [facility] Stop: 09/14/18 18:59 Oxcarbazepine (Trileptal) 600 mg PO BID [facility] Stop: 09/11/18 16:59 Last Admin: 07/20/18 10:53 Dose: 600 mg Risperidone (Risperdal) 2 mg PO HS [facility] Stop: 09/11/18 20:59 Last Admin: 07/19/18 20:23 Dose: 2 mg Senna (Senna) 17.2 mg PO BID [facility] Stop: 09/11/18 16:59 Last Admin: 07/20/18 10:53 Dose: 17.2 mg Sevelamer Carbonate (Renvela) 800 mg PO TIDWM [facility] Stop: 09/11/18 16:59 Last Admin: 07/20/18 10:52 Dose: 800 mg Temazepam (Restoril) 15 mg PO HS PRN; Protocol PRN Reason: Insomnia Stop: 09/11/18 15:14 Last Admin: 07/20/18 02:05 Dose: 15 mg Vitamin B Complex/Vit C/Folic Acid (Vitamin B Complex W/Vitamin C) 1 tab PO DAILY [facility] Stop: 09/12/18 08:59 Last Admin: 07/20/18 10:54 Dose: 1 tab Warfarin Sodium (Coumadin Per Pharmacy) 1 [facility] PRN [facility]; Protocol Stop: 09/16/18 14:29 Zinc Sulfate (Zinc Sulfate) 220 mg PO DAILY [facility] Stop: 09/12/18 08:59 Last Admin: 07/20/18 10:54 Dose: 220 mg General: Alert, Mild distress HEENT: Atraumatic, EOMI Neck: Supple, +2 carotid pulse wo bruit Cardiovascular: Regular rate, Normal S1, Normal S2 Lungs: Other (scattered rales) Abdomen: Bowel sounds, Soft Extremities: Edema ((+) 2-3 edema), Other ((+) 3 bipedal edema) Neurological: Sensation intact Skin: no Rash Psych/Mental Status: Mood NL Assessment/Plan - Assessment Assessment: ESRD on HD Hypothyroid Parkinson Ds. Fnc Quad Hep B,C GERD Left Calf ulcer Sacral Decub ulcer Cholelithiasis B/L HAP w/ effusions Peripheral edema Left SFV DVT - Plan Plan: Lab - Result Diagrams 07/14/18 05:00 07/14/18 05:00 Current Medications Acetaminophen (Tylenol) 650 mg PO Q6H PRN PRN Reason: Pain or Fever >101 Stop: 09/11/18 15:14 Acetaminophen/Hydrocodone Bitart ([place] 5mg/325mg) 1 tab PO Q6H PRN PRN Reason: Pain (Severe) Stop: 09/11/18 15:14 Albuterol/Ipratropium (Duoneb Neb) 3 ml HHN Q4HRT PRN PRN Reason: Shortness of Breath or Wheeze Stop: 09/11/18 15:14 Ascorbic Acid (Vitamin C) 500 mg PO DAILY [facility] Stop: 09/12/18 08:59 Last Admin: 07/14/18 08:27 Dose: 500 mg Atorvastatin Calcium (Lipitor) 20 mg PO HS [facility] Stop: 09/11/18 20:59 Last Admin: 07/13/18 21:05 Dose: 20 mg Dextrose (D50w) 50 ml IVP PRN PRN PRN Reason: Blood Glucose less than 70 Stop: 09/11/18 04:10 Dextrose (Glutose 40%) 18.75 gm PO PRN PRN PRN Reason: Blood Glucose less than 70 Stop: 09/11/18 04:10 Docusate Sodium (Colace) 100 mg PO BID [facility] Stop: 09/11/18 16:59 Last Admin: 07/14/18 08:27 Dose: 100 mg Famotidine (Pepcid) 20 mg PO DAILY [facility] Stop: 09/12/18 08:59 Last Admin: 07/14/18 08:27 Dose: 20 mg Folic Acid (Folate) 1 mg PO DAILY [facility] Stop: 09/12/18 08:59 Last Admin: 07/14/18 08:27 Dose: 1 mg Glucagon (Glucagen) 1 mg IM PRN PRN PRN Reason: Blood Glucose less than 70 Stop: 09/11/18 04:10 Piperacillin Sod/Tazobactam (Sod 2.25 gm/ Sodium Chloride) 50 mls @ 100 mls/hr IV Q6H [facility] Stop: 09/11/18 05:59 Last Admin: 07/14/18 06:05 Dose: Not Given Dextrose/Sodium Chloride (D5-0.45ns) 1,000 mls @ 50 mls/hr IV .Q20H [facility] Stop: 09/11/18 02:29 Last Admin: 07/13/18 04:03 Dose: 50 mls/hr Insulin Aspart (Novolog Insulin Sliding Scale) 0 units SUBQ Q6HR [facility]; Protocol Stop: 09/11/18 05:59 Last Admin: 07/14/18 06:05 Dose: Not Given Levothyroxine Sodium (Synthroid) 0.025 mg PO QDAC [facility] Stop: 09/12/18 07:29 Last Admin: 07/14/18 06:35 Dose: 0.025 mg Miscellaneous (Vancomycin Iv Per Pharmacy) 1 ea PRN PRN PRN Reason: PROTOCOL Stop: 09/10/18 23:40 Oxcarbazepine (Trileptal) 600 mg PO BID [facility] Stop: 09/11/18 16:59 Last Admin: 07/14/18 08:27 Dose: 600 mg Risperidone (Risperdal) 2 mg PO HS [facility] Stop: 09/11/18 20:59 Last Admin: 07/13/18 21:05 Dose: 2 mg Senna (Senna) 17.2 mg PO BID [facility] Stop: 09/11/18 16:59 Last Admin: 07/14/18 08:27 Dose: 17.2 mg Sevelamer Carbonate (Renvela) 800 mg PO TIDWM [facility] Stop: 09/11/18 16:59 Last Admin: 07/14/18 08:27 Dose: 800 mg Temazepam (Restoril) 15 mg PO HS PRN; Protocol PRN Reason: Insomnia Stop: 09/11/18 15:14 Vitamin B Complex/Vit C/Folic Acid (Vitamin B Complex W/Vitamin C) 1 tab PO DAILY [facility] Stop: 09/12/18 08:59 Last Admin: 07/14/18 08:27 Dose: 1 tab Zinc Sulfate (Zinc Sulfate) 220 mg PO DAILY [facility] Stop: 09/12/18 08:59 Last Admin: 07/14/18 08:27 Dose: 220 mg Lab - Result Diagrams 07/20/18 04:45 07/20/18 04:45 Cr. more elevated w/ peripheral edema continue wound care Pt. will need diverting colostomy to avoid irritation & promote healing of stage 4 sacral decubitus ulcer CXR still w/ persistent CHF, congestion schedule for HD again today & in am hold Coumadin for possible surgery in am replace K Nutritional Asmnt/Malnutr-PDOC - Dietary Evaluation Malnutrition Findings (Please click <Entered> for more info): Nutritional Asmnt/Malnutrition Start: 07/13/18 13: 54 Text: Status: Complete Freq: Protocol: Document 07/13/18 13:56 MMERIN (Rec: 07/13/18 14:10 MMERIN [id number]) Nutritional Asmnt/Malnutrition Patient General Information Nutritional Screening Consult Diagnosis ESRD, anasarca Pertinent Medical Hx/Surgical Hx Seizure, hep C, diabetes, CAD, HTN, CVA, quadreplegia, Parkinsons, ESRD Subjective Information Consult received for "Diabetic ". Per nursing notes, patient receives hemodialysis MWF and patient is non-verbal. Patient with 2+ pitting edema. Current Diet Order/ Nutrition Support Renal diet Patient / S.O Not Indicated Pertinent Medications D50W, D5-0.45NS @50 ml/hr, Glucagon, Novolog Pertinent Labs (07/13) Na 134, BUN 48, Cr 2.9, glucose 41-137, Ca 8.2, BNP 515, albumin 2 Nutritional Hx/Data Height 1.73 m Height (Calculated Centimeters) 172.7 Current Weight (lbs) 113.852 kg Weight (Calculated Kilograms) 113.9 Weight (Calculated Grams) 138467.7 [place] Body Weight 140 % [place] Body Weight 179 Body Mass Index (BMI) 38.1 Recent Weight Change No Weight Status Morbidly Obese GI Symptoms GI Symptoms None Last BM 07/13 x 1 Difficult in: Chewing Food Allergies No Cultural/Ethnic/Restorationist Belief none indicated Usual diet at home unknown Skin Integrity/Comment: Arian 10, ulceration on sacrum, left lower leg, abrasion on L heel, scar on right leg. Current %PO Good (75-100%) Estimated Nutritional Goals BEE in Kcals: Adj wt of IBW Calories/Kcals/Kg 27-32 kcal/kg (using 76.2kg ADj wt) Kcals Calculated ~5749-2881 kcal/day Protein g/k.2-1.5 gm/kg using Adj wt Protein Calculated ~90-115 gm/day Fluid: ml Per MD due to HD Nutritional Problem 2. Problem Problem Altered nutrition related lab values related to Etiology episodes of hypoglycemia, electrolyte imbalance aeb Signs/Symptoms: Na 134, glucose 41-137, Ca 8.2 1. Problem Problem Increased nutrient needs related to Etiology hypermetabolic state, impaired skin integrity aeb Signs/Symptoms: Pt on Hemodialysis and with multiple ulcerations Intervention/Recommendation Comments 1. Continue Renal diet as tolerated by patient. No need for DM restriction at this time due to hypoglycemia. 2. Consider fluid restriction due to HD, hyponatremia and edema. 3. Consider adding Prosource 1 packet with each meal for an additional 45gm protein. Expected Outcomes/Goals Expected Outcomes/Goals Oral intake >75% of meals, weight stable or trend toward ideal body weight, nutrition related labs WNL
[2018-07-20] MEDS ORDERED: Venelex 60gm Tube TP ONE (15:08)
[2018-07-20] MEDS ORDERED: Sodium Chloride 0.45% 1,000 ML IV ONE (15:08)
--- NOTE | 2018-07-20 15:25 | General Progress Note ---
Subjective - Review of Systems Events since last encounter: patient awake still some sob o fever Objective - Results Result Diagrams: 07/20/18 04:45 07/20/18 04:45 Recent Labs: Laboratory Last Values WBC 4.7 Th/cmm (4.8-10.8) L 07/20/18 04:45 RBC 2.74 Mil/cmm (3.80-5.10) L 07/20/18 04:45 Hgb 8.0 gm/dL (12-16) L 07/20/18 04:45 Hct 24.2 % (41.0-60) L 07/20/18 04:45 MCV 88.4 fl (81-100) 07/20/18 04:45 MCH 29.1 pg (27.0-31.0) 07/20/18 04:45 MCHC Differential 32.9 pg (28.0-36.0) 07/20/18 04:45 RDW 17.1 % (11.5-20.0) 07/20/18 04:45 Plt Count 98 Th/cmm (150-400) L 07/20/18 04:45 MPV 8.5 fl 07/20/18 04:45 Add Manual Diff YES 07/18/18 09:02 Neutrophils % 47.5 % (40.0-80.0) 07/20/18 04:45 Band Neutrophils % 1 % (0-10) 07/18/18 09:02 Lymphocytes % 38.9 % (20.0-50.0) 07/20/18 04:45 Monocytes % 11.7 % (2.0-10.0) H 07/20/18 04:45 Eosinophils % 1.7 % (0.0-5.0) 07/20/18 04:45 Basophils % 0.2 % (0.0-2.0) 07/20/18 04:45 Neutrophils (Manual) 52 % (40-80) 07/18/18 09:02 Lymphocytes 36 % (20-50) 07/18/18 09:02 Monocytes 11 % (2-10) H 07/18/18 09:02 Eosinophils 0 % (0-5) 07/18/18 09:02 Basophils 0 % (0-3) 07/18/18 09:02 Platelet Estimate DECREASED PLATELETS (NORMAL) 07/18/18 09:02 PT 24.6 SECONDS (9.5-11.5) H 07/20/18 08:08 INR 2.47 (0.5-1.4) H 07/20/18 08:08 PTT (Actin FS) 43.0 SECONDS (26.0-38.0) H 07/20/18 08:08 Sodium 136 mEq/L (136-145) 07/20/18 04:45 Potassium 3.4 mEq/L (3.5-5.1) L 07/20/18 04:45 Chloride 105 mEq/L (98-107) 07/20/18 04:45 Carbon Dioxide 24.6 mEq/L (21.0-31.0) 07/20/18 04:45 Anion Gap 9.8 (7.0-16.0) 07/20/18 04:45 BUN 15 mg/dL (7-25) 07/20/18 04:45 Creatinine 2.6 mg/dL (0.6-1.2) H 07/20/18 04:45 Est GFR ( Amer) 25.2 ml/min (>90) 07/20/18 04:45 Est GFR (Non-Af Amer) 20.8 ml/min 07/20/18 04:45 BUN/Creatinine Ratio 5.8 07/20/18 04:45 Glucose 155 mg/dL (70-105) H 07/20/18 04:45 POC Glucose 171 MG/DL (70 - 105) H 07/19/18 17:08 Whole Bld Lactic Acid 1.29 mmol/L (0.60-1.99) 07/12/18 20:50 Calcium 8.2 mg/dL (8.6-10.3) L 07/20/18 04:45 Total Bilirubin 0.3 mg/dL (0.3-1.0) 07/18/18 05:20 AST 18 U/L (13-39) 07/18/18 05:20 ALT 7 U/L (7-52) 07/18/18 05:20 Alkaline Phosphatase 80 U/L (34-104) 07/18/18 05:20 Creatine Kinase 20 U/L (30-223) L 07/12/18 20:50 Troponin I 0.49 ng/mL (0.01-0.05) H* 07/13/18 15:20 B-Natriuretic Peptide 515.0 pg/mL (5.0-100.0) H 07/13/18 04:00 Total Protein 4.0 gm/dL (6.0-8.3) L 07/18/18 05:20 Albumin < 1.5 gm/dL (3.7-5.3) L 07/18/18 05:20 Globulin 2.5 gm/dL 07/18/18 05:20 Albumin/Globulin Ratio 0.6 (1.0-1.8) L 07/18/18 05:20 Triglycerides 53 mg/dL (<150) 07/13/18 04:00 Cholesterol 41 mg/dL (<200) 07/13/18 04:00 LDL Cholesterol Direct 11 mg/dL (75-193) L 07/13/18 04:00 HDL Cholesterol 24 mg/dL (23-92) 07/13/18 04:00 TSH 1.21 uIU/ml (0.34-5.60) 07/13/18 04:00 Urine Source [place] 07/12/18 20:50 Urine Color YELLOW 07/12/18 20:50 Urine Clarity CLOUDY (CLEAR) H 07/12/18 20:50 Urine pH 8.5 (4.6 - 8.0) 07/12/18 20:50 Ur Specific [place] 1.015 (1.005-1.030) 07/12/18 20:50 Urine Protein 100 mg/dL (NEGATIVE) H 07/12/18 20:50 Urine Glucose (UA) NEGATIVE mg/dL (NEGATIVE) 07/12/18 20:50 Urine Ketones NEGATIVE mg/dL (NEGATIVE) 07/12/18 20:50 Urine Blood TRACE (NEGATIVE) 07/12/18 20:50 Urine Nitrate NEGATIVE (NEGATIVE) 07/12/18 20:50 Urine Bilirubin NEGATIVE (NEGATIVE) 07/12/18 20:50 Urine Urobilinogen 0.2 E.U./dL (0.2 - 1.0) 07/12/18 20:50 Ur Leukocyte Esterase LARGE (NEGATIVE) H 07/12/18 20:50 Urine RBC 2-5 /hpf (0-5) 07/12/18 20:50 Urine WBC >100 /hpf (0-5) H 07/12/18 20:50 Ur Epithelial Cells MODERATE /lpf (FEW) 07/12/18 20:50 Urine Bacteria MANY /hpf (NONE SEEN) H 07/12/18 20:50 Amikacin Peak 16.9 ug/mL (20.0-30.0) L 07/19/18 10:15 Amikacin Trough 5.5 ug/mL (1.0-8.0) 07/18/18 18:30 Random Vancomycin 20.7 ug/mL (5.0-40.0) 07/20/18 04:45 - Physical Exam Vitals and I&O: Vital Signs Temp 97.6 F 07/20/18 11:44 Pulse 83 07/20/18 11:44 Resp 18 07/20/18 12:00 BP 139/67 07/20/18 11:44 Pulse Ox 98 07/20/18 11:44 Intake & Output 07/19/18 07/20/18 07/20/18 18:59 06:59 18:59 Intake Total 100 600 Balance 100 600 Weight (lbs) 114.305 kg Intake: Intake, IV Amount 100 Oral 600 Other: Stool Characteristics Soft Brown Weight Source Bedscale Active Medications: Current Medications Acetaminophen (Tylenol) 650 mg PO Q6H PRN PRN Reason: Pain or Fever >101 Stop: 09/11/18 15:14 Acetaminophen/Hydrocodone Bitart ([place] 5mg/325mg) 1 tab PO Q6H PRN PRN Reason: Pain (Severe) Stop: 09/11/18 15:14 Last Admin: 07/20/18 10:52 Dose: 1 tab Albuterol/Ipratropium (Duoneb Neb) 3 ml HHN Q4HRT PRN PRN Reason: Shortness of Breath or Wheeze Stop: 09/11/18 15:14 Ascorbic Acid (Vitamin C) 500 mg PO DAILY [facility] Stop: 09/12/18 08:59 Last Admin: 07/20/18 10:52 Dose: 500 mg Atorvastatin Calcium (Lipitor) 20 mg PO HS [facility] Stop: 09/11/18 20:59 Last Admin: 07/19/18 20:23 Dose: 20 mg [place] Oil/[place] Balsam/Trypsin (Venelex) 1 appl TP DAILY [facility] Stop: 09/13/18 08:59 Last Admin: 07/20/18 10:52 Dose: 1 appl Dextrose (Glutose 40%) 18.75 gm PO PRN PRN PRN Reason: Blood Glucose less than 70 Stop: 09/11/18 04:10 Docusate Sodium (Colace) 100 mg PO BID [facility] Stop: 09/11/18 16:59 Last Admin: 07/20/18 10:52 Dose: 100 mg Famotidine (Pepcid) 20 mg PO DAILY [facility] Stop: 09/12/18 08:59 Last Admin: 07/20/18 10:52 Dose: 20 mg Folic Acid (Folate) 1 mg PO DAILY [facility] [place] Stop: 09/12/18 08:59 Last Admin: 07/20/18 10:52 Dose: 1 mg Glucagon (Glucagen) 1 mg IM PRN PRN PRN Reason: Blood Glucose less than 70 Stop: 09/11/18 04:10 Heparin Sodium (Porcine) (Heparin) 5,000 units SUBQ Q12HR [facility] Stop: 09/17/18 20:59 Last Admin: 07/20/18 10:53 Dose: Not Given Tigecycline 50 mg/ Sodium (Chloride) 100 mls @ 100 mls/hr IV Q12HR [facility] Stop: 07/26/18 08:59 Last Admin: 07/20/18 10:54 Dose: 100 mls/hr Vancomycin HCl 1 gm/ Sodium (Chloride) 250 mls @ 165 mls/hr IV ONCE ONE Stop: 07/20/18 15:30 Amikacin Sulfate 750 mg/ (Dextrose) 103 mls @ 100 mls/hr IV ONCE ONE Stop: 07/20/18 17:01 Insulin Aspart (Novolog Insulin Sliding Scale) 0 units SUBQ Q6HR [facility] [place]; Protocol Stop: 09/11/18 05:59 Last Admin: 07/20/18 13:00 Dose: Not Given Lactobacillus Rhamnosus (Culturelle 15b) 1 each PO DAILY [facility] [place] Stop: 09/13/18 13:59 Last Admin: 07/20/18 10:53 Dose: 1 each Levothyroxine Sodium (Synthroid) 0.025 mg PO QDAC [facility] [place] Stop: 09/12/18 07:29 Last Admin: 07/20/18 06:47 Dose: Not Given Miscellaneous (Probiotic Screen) 1 ea PRN PRN PRN Reason: PROTOCOL Stop: 09/13/18 11:44 Miscellaneous (Amikacin Iv Per Pharmacy) 1 ea PRN PRN PRN Reason: PROTOCOL Stop: 09/13/18 18:08 Miscellaneous (Vancomycin Iv Per Pharmacy) 1 ea PRN [facility] Stop: 09/14/18 18:59 Oxcarbazepine (Trileptal) 600 mg PO BID [facility] Stop: 09/11/18 16:59 Last Admin: 07/20/18 10:53 Dose: 600 mg Risperidone (Risperdal) 2 mg PO HS [facility] Stop: 09/11/18 20:59 Last Admin: 07/19/18 20:23 Dose: 2 mg Senna (Senna) 17.2 mg PO BID [facility] Stop: 09/11/18 16:59 Last Admin: 07/20/18 10:53 Dose: 17.2 mg Sevelamer Carbonate (Renvela) 800 mg PO TIDWM [facility] Stop: 09/11/18 16:59 Last Admin: 07/20/18 10:52 Dose: 800 mg Temazepam (Restoril) 15 mg PO HS PRN; Protocol PRN Reason: Insomnia Stop: 09/11/18 15:14 Last Admin: 07/20/18 02:05 Dose: 15 mg Vitamin B Complex/Vit C/Folic Acid (Vitamin B Complex W/Vitamin C) 1 tab PO DAILY [facility] Stop: 09/12/18 08:59 Last Admin: 07/20/18 10:54 Dose: 1 tab Zinc Sulfate (Zinc Sulfate) 220 mg PO DAILY [facility] [place] Stop: 09/12/18 08:59 Last Admin: 07/20/18 10:54 Dose: 220 mg General: Alert, Mild distress HEENT: Atraumatic, EOMI Neck: Supple, +2 carotid pulse wo bruit Cardiovascular: Regular rate, Normal S1, Normal S2 Lungs: Other (scattered rales) Abdomen: Bowel sounds, Soft Extremities: Edema ((+) 2-3 edema), Other ((+) 3 bipedal edema) Neurological: Sensation intact Skin: no Rash Psych/Mental Status: Mood NL Nutritional Asmnt/Malnutr-PDOC - Dietary Evaluation Malnutrition Findings (Please click <Entered> for more info): Nutritional Asmnt/Malnutrition Start: 07/13/18 13: 54 Text: Status: Complete Freq: Protocol: Document 07/13/18 13:56 ALDAIR (Rec: 07/13/18 14:10 ALDAIR [email or web address]- [id number]) Nutritional Asmnt/Malnutrition Patient General Information Nutritional Screening Consult Diagnosis ESRD, anasarca Pertinent Medical Hx/Surgical Hx Seizure, hep C, diabetes, CAD, HTN, CVA, quadreplegia, Parkinsons, ESRD Subjective Information Consult received for "Diabetic ". Per nursing notes, patient receives hemodialysis MWF and patient is non-verbal. Patient with 2+ pitting edema. Current Diet Order/ Nutrition Support Renal diet Patient / S.O Not Indicated Pertinent Medications D50W, D5-0.45NS @50 ml/hr, Glucagon, Novolog Pertinent Labs (07/13) Na 134, BUN 48, Cr 2.9, glucose 41-137, Ca 8.2, BNP 515, albumin 2 Nutritional Hx/Data Height 1.73 m Height (Calculated Centimeters) 172.7 Current Weight (lbs) 113.852 kg Weight (Calculated Kilograms) 113.9 Weight (Calculated Grams) 017851.7 [place] Body Weight 140 % [place] Body Weight 179 Body Mass Index (BMI) 38.1 Recent Weight Change No Weight Status Morbidly Obese GI Symptoms GI Symptoms None Last BM 07/13 x 1 Difficult in: Chewing Food Allergies No Cultural/Ethnic/Restorationist Belief none indicated Usual diet at home unknown Skin Integrity/Comment: Arian 10, ulceration on sacrum, left lower leg, abrasion on L heel, scar on right leg. Current %PO Good (75-100%) Estimated Nutritional Goals BEE in Kcals: Adj wt of IBW Calories/Kcals/Kg 27-32 kcal/kg (using 76.2kg ADj wt) Kcals Calculated ~6290-6410 kcal/day Protein g/k.2-1.5 gm/kg using Adj wt Protein Calculated ~90-115 gm/day Fluid: ml Per MD due to HD Nutritional Problem 2. Problem Problem Altered nutrition related lab values related to Etiology episodes of hypoglycemia, electrolyte imbalance aeb Signs/Symptoms: Na 134, glucose 41-137, Ca 8.2 1. Problem Problem Increased nutrient needs related to Etiology hypermetabolic state, impaired skin integrity aeb Signs/Symptoms: Pt on Hemodialysis and with multiple ulcerations Intervention/Recommendation Comments 1. Continue Renal diet as tolerated by patient. No need for DM restriction at this time due to hypoglycemia. 2. Consider fluid restriction due to HD, hyponatremia and edema. 3. Consider adding Prosource 1 packet with each meal for an additional 45gm protein. Expected Outcomes/Goals Expected Outcomes/Goals Oral intake >75% of meals, weight stable or trend toward ideal body weight, nutrition related labs WNL
[2018-07-20] MEDS: Atorvastatin Calcium 10 MG TAB PO SCH (22:00)
[2018-07-21] MEDS: INSULIN ASPART SLIDING SCALE 100 UNITS/ML UNIT SUBQ SCH ×5 (00:29→23:56)
[2018-07-21 05:14] LABS: % BASOPHILS 0.3 % (0.0-2.0); % EOSINOPHILS 0.3 % (0.0-5.0); % LYMPHOCYTES 34.6 % (20.0-50.0); % MONOCYTES 11.9 % (2.0-10.0); % NEUTROPHILS 52.9 % (40.0-80.0); HEMATOCRIT 26.8 % (41.0-60); HEMOGLOBIN 8.8 gm/dL (12-16); LYMPHOCYTE ABSOLUTE 1.7 Th/cmm (1.5-3.0); MEAN CORPUSCULAR HEMOGLOBIN 28.7 pg (27.0-31.0); MEAN CORPUSCULAR HGB CONC 32.6 pg (28.0-36.0); MEAN PLATELET VOLUME 7.4 fl; MONOCYTE ABSOLUTE 0.6 Th/cmm (0.3-1.0); NEUTROPHILE ABSOLUTE 2.7 Th/cmm (1.8-8.0); PLATELET COUNT 124 Th/cmm (150-400); RED BLOOD COUNT 3.05 Mil/cmm (3.80-5.10); RED CELL DISTRIBUTION WIDTH 16.7 % (11.5-20.0)
[2018-07-21 05:35] LABS: INR 3.87 (0.5-1.4); PROTHROMBIN TIME (TEST) 37.7 SECONDS (9.5-11.5)
[2018-07-21 05:44] LABS: ANION GAP 9.8 (7.0-16.0); CALCIUM SERUM 8.1 mg/dL (8.6-10.3); CARBON DIOXIDE 27.8 mEq/L (21.0-31.0); CREATININE - SERUM 2.3 mg/dL (0.6-1.2); MAGNESIUM 1.6 mg/dL (1.9-2.7); POTASSIUM SERUM 3.6 mEq/L (3.5-5.1)
[2018-07-21] MEDS: Levothyroxine 0.025 Mg Tab PO SCH (06:35)
[2018-07-21] MEDS ORDERED: Magnesium Citrate 1.75 GM/300 mL Bottle PO ONE (08:43)
--- NOTE | 2018-07-21 08:43 | General Progress Note ---
Subjective - Review of Systems Service Date: 07/21/18 Events since last encounter: 2 MDs signed medical necessity for diverting colostomy need Psych eval will schedule for surgery tomorrow Objective - Results Result Diagrams: 07/21/18 05:00 07/21/18 05:00 Recent Labs: Laboratory Last Values WBC 5.0 Th/cmm (4.8-10.8) 07/21/18 05:00 RBC 3.05 Mil/cmm (3.80-5.10) L 07/21/18 05:00 Hgb 8.8 gm/dL (12-16) L 07/21/18 05:00 Hct 26.8 % (41.0-60) L 07/21/18 05:00 MCV 88.0 fl (81-100) 07/21/18 05:00 MCH 28.7 pg (27.0-31.0) 07/21/18 05:00 MCHC Differential 32.6 pg (28.0-36.0) 07/21/18 05:00 RDW 16.7 % (11.5-20.0) 07/21/18 05:00 Plt Count 124 Th/cmm (150-400) L 07/21/18 05:00 MPV 7.4 fl 07/21/18 05:00 Add Manual Diff YES 07/18/18 09:02 Neutrophils % 52.9 % (40.0-80.0) 07/21/18 05:00 Band Neutrophils % 1 % (0-10) 07/18/18 09:02 Lymphocytes % 34.6 % (20.0-50.0) 07/21/18 05:00 Monocytes % 11.9 % (2.0-10.0) H 07/21/18 05:00 Eosinophils % 0.3 % (0.0-5.0) 07/21/18 05:00 Basophils % 0.3 % (0.0-2.0) 07/21/18 05:00 Neutrophils (Manual) 52 % (40-80) 07/18/18 09:02 Lymphocytes 36 % (20-50) 07/18/18 09:02 Monocytes 11 % (2-10) H 07/18/18 09:02 Eosinophils 0 % (0-5) 07/18/18 09:02 Basophils 0 % (0-3) 07/18/18 09:02 Platelet Estimate DECREASED PLATELETS (NORMAL) 07/18/18 09:02 PT 37.7 SECONDS (9.5-11.5) H 07/21/18 05:00 INR 3.87 (0.5-1.4) H 07/21/18 05:00 PTT (Actin FS) 43.0 SECONDS (26.0-38.0) H 07/20/18 08:08 Sodium 139 mEq/L (136-145) 07/21/18 05:00 Potassium 3.6 mEq/L (3.5-5.1) 07/21/18 05:00 Chloride 105 mEq/L (98-107) 07/21/18 05:00 Carbon Dioxide 27.8 mEq/L (21.0-31.0) 07/21/18 05:00 Anion Gap 9.8 (7.0-16.0) 07/21/18 05:00 BUN 11 mg/dL (7-25) 07/21/18 05:00 Creatinine 2.3 mg/dL (0.6-1.2) H 07/21/18 05:00 Est GFR ( Amer) 29.0 ml/min (>90) 07/21/18 05:00 Est GFR (Non-Af Amer) 24.0 ml/min 07/21/18 05:00 BUN/Creatinine Ratio 4.8 07/21/18 05:00 Glucose 139 mg/dL (70-105) H 07/21/18 05:00 POC Glucose 130 MG/DL (70 - 105) H 07/20/18 18:02 Whole Bld Lactic Acid 1.29 mmol/L (0.60-1.99) 07/12/18 20:50 Calcium 8.1 mg/dL (8.6-10.3) L 07/21/18 05:00 Magnesium 1.6 mg/dL (1.9-2.7) L 07/21/18 05:00 Total Bilirubin 0.3 mg/dL (0.3-1.0) 07/18/18 05:20 AST 18 U/L (13-39) 07/18/18 05:20 ALT 7 U/L (7-52) 07/18/18 05:20 Alkaline Phosphatase 80 U/L (34-104) 07/18/18 05:20 Creatine Kinase 20 U/L (30-223) L 07/12/18 20:50 Troponin I 0.49 ng/mL (0.01-0.05) H* 07/13/18 15:20 B-Natriuretic Peptide 515.0 pg/mL (5.0-100.0) H 07/13/18 04:00 Total Protein 4.0 gm/dL (6.0-8.3) L 07/18/18 05:20 Albumin < 1.5 gm/dL (3.7-5.3) L 07/18/18 05:20 Globulin 2.5 gm/dL 07/18/18 05:20 Albumin/Globulin Ratio 0.6 (1.0-1.8) L 07/18/18 05:20 Triglycerides 53 mg/dL (<150) 07/13/18 04:00 Cholesterol 41 mg/dL (<200) 07/13/18 04:00 LDL Cholesterol Direct 11 mg/dL (75-193) L 07/13/18 04:00 HDL Cholesterol 24 mg/dL (23-92) 07/13/18 04:00 TSH 1.21 uIU/ml (0.34-5.60) 07/13/18 04:00 Urine Source [place] 07/12/18 20:50 Urine Color YELLOW 07/12/18 20:50 Urine Clarity CLOUDY (CLEAR) H 07/12/18 20:50 Urine pH 8.5 (4.6 - 8.0) 07/12/18 20:50 Ur Specific [place] 1.015 (1.005-1.030) 07/12/18 20:50 Urine Protein 100 mg/dL (NEGATIVE) H 07/12/18 20:50 Urine Glucose (UA) NEGATIVE mg/dL (NEGATIVE) 07/12/18 20:50 Urine Ketones NEGATIVE mg/dL (NEGATIVE) 07/12/18 20:50 Urine Blood TRACE (NEGATIVE) 07/12/18 20:50 Urine Nitrate NEGATIVE (NEGATIVE) 07/12/18 20:50 Urine Bilirubin NEGATIVE (NEGATIVE) 07/12/18 20:50 Urine Urobilinogen 0.2 E.U./dL (0.2 - 1.0) 07/12/18 20:50 Ur Leukocyte Esterase LARGE (NEGATIVE) H 07/12/18 20:50 Urine RBC 2-5 /hpf (0-5) 07/12/18 20:50 Urine WBC >100 /hpf (0-5) H 07/12/18 20:50 Ur Epithelial Cells MODERATE /lpf (FEW) 07/12/18 20:50 Urine Bacteria MANY /hpf (NONE SEEN) H 07/12/18 20:50 Amikacin Peak 16.9 ug/mL (20.0-30.0) L 07/19/18 10:15 Amikacin Trough 5.5 ug/mL (1.0-8.0) 07/18/18 18:30 Random Vancomycin 20.7 ug/mL (5.0-40.0) 07/20/18 04:45 - Physical Exam Vitals and I&O: Vital Signs Temp 97.8 F 07/21/18 04:00 Pulse 123 07/21/18 07:48 Resp 20 07/21/18 07:48 BP 121/84 07/21/18 04:00 Pulse Ox 94 07/21/18 07:48 Intake & Output 07/20/18 07/21/18 07/21/18 18:59 06:59 18:59 Intake Total 950 220 Output Total 3550 Balance 950 -3330 Weight (lbs) 114.305 kg 112.037 kg Intake: Intake, IV Amount 350 Tigecycline 50 mg In 100 Sodium Chloride 0.9% 100 ml @ 100 mls/hr IV Q12HR [facility] Rx#:[id number] Vancomycin HCl 1 gm In 250 Sodium Chloride 0.9% 250 ml @ 165 mls/hr IV ONCE ONE Rx#:[id number] Oral 600 120 Other 100 Output: Urine 50 Hemodialysis 3500 Other: # Bowel Movements 1 Stool Characteristics Soft Formed Brown Weight Source Bedscale Bedscale Active Medications: Current Medications Acetaminophen (Tylenol) 650 mg PO Q6H PRN PRN Reason: Pain or Fever >101 Stop: 09/11/18 15:14 Albuterol/Ipratropium (Duoneb Neb) 3 ml HHN Q4HRT PRN PRN Reason: Shortness of Breath or Wheeze Stop: 09/11/18 15:14 Ascorbic Acid (Vitamin C) 500 mg PO DAILY [facility] Stop: 09/12/18 08:59 Last Admin: 07/20/18 10:52 Dose: 500 mg Atorvastatin Calcium (Lipitor) 20 mg PO HS [facility] Stop: 09/11/18 20:59 Last Admin: 07/20/18 22:00 Dose: 20 mg [place] Oil/[place] Balsam/Trypsin (Venelex) 1 appl TP DAILY [facility] Stop: 09/13/18 08:59 Last Admin: 07/20/18 10:52 Dose: 1 appl Dextrose (Glutose 40%) 18.75 gm PO PRN PRN PRN Reason: Blood Glucose less than 70 Stop: 09/11/18 04:10 Docusate Sodium (Colace) 100 mg PO BID [facility] Stop: 09/11/18 16:59 Last Admin: 07/20/18 17:26 Dose: 100 mg Famotidine (Pepcid) 20 mg PO DAILY [facility] Stop: 09/12/18 08:59 Last Admin: 07/20/18 10:52 Dose: 20 mg Folic Acid (Folate) 1 mg PO DAILY [facility] Stop: 09/12/18 08:59 Last Admin: 07/20/18 10:52 Dose: 1 mg Glucagon (Glucagen) 1 mg IM PRN PRN PRN Reason: Blood Glucose less than 70 Stop: 09/11/18 04:10 Heparin Sodium (Porcine) (Heparin) 5,000 units SUBQ Q12HR [facility] Stop: 09/17/18 20:59 Last Admin: 07/20/18 22:01 Dose: 5,000 units Tigecycline 50 mg/ Sodium (Chloride) 100 mls @ 100 mls/hr IV Q12HR [facility] Stop: 07/26/18 08:59 Last Admin: 07/20/18 22:01 Dose: 100 mls/hr Insulin Aspart (Novolog Insulin Sliding Scale) 0 units SUBQ Q6HR [facility]; Protocol Stop: 09/11/18 05:59 Last Admin: 07/21/18 06:36 Dose: Not Given Lactobacillus Rhamnosus (Culturelle 15b) 1 each PO DAILY [facility] Stop: 09/13/18 13:59 Last Admin: 07/20/18 10:53 Dose: 1 each Levothyroxine Sodium (Synthroid) 0.025 mg PO QDAC [facility] Stop: 09/12/18 07:29 Last Admin: 07/21/18 06:35 Dose: 0.025 mg Miscellaneous (Probiotic Screen) 1 ea [facility] PRN PRN PRN Reason: PROTOCOL Stop: 09/13/18 11:44 Miscellaneous (Amikacin Iv Per Pharmacy) 1 ea PRN PRN PRN Reason: PROTOCOL Stop: 09/13/18 18:08 Miscellaneous (Vancomycin Iv Per Pharmacy) 1 [facility] PRN [facility] Stop: 09/14/18 18:59 Oxcarbazepine (Trileptal) 600 mg PO BID [facility] Stop: 09/11/18 16:59 Last Admin: 07/20/18 17:26 Dose: 600 mg Risperidone (Risperdal) 2 mg PO HS [facility] Stop: 09/11/18 20:59 Last Admin: 07/20/18 22:00 Dose: 2 mg Senna (Senna) 17.2 mg PO BID [facility] Stop: 09/11/18 16:59 Last Admin: 07/20/18 17:26 Dose: Not Given Sevelamer Carbonate (Renvela) 800 mg PO TIDWM [facility] Stop: 09/11/18 16:59 Last Admin: 07/20/18 17:26 Dose: 800 mg Vitamin B Complex/Vit C/Folic Acid (Vitamin B Complex W/Vitamin C) 1 tab PO DAILY [facility] Stop: 09/12/18 08:59 Last Admin: 07/20/18 10:54 Dose: 1 tab Zinc Sulfate (Zinc Sulfate) 220 mg PO DAILY [facility] Stop: 09/12/18 08:59 Last Admin: 07/20/18 10:54 Dose: 220 mg General: Alert, Mild distress HEENT: Atraumatic, EOMI Neck: Supple, +2 carotid pulse wo bruit Cardiovascular: Regular rate, Normal S1, Normal S2 Lungs: Other (scattered rales) Abdomen: Bowel sounds, Soft Extremities: Edema ((+) 2-3 edema), Other ((+) 3 bipedal edema) Neurological: Sensation intact Skin: no Rash Psych/Mental Status: Mood NL Nutritional Asmnt/Malnutr-PDOC - Dietary Evaluation Malnutrition Findings (Please click <Entered> for more info): Nutritional Asmnt/Malnutrition Start: 07/13/18 13: 54 Text: Status: Complete Freq: Protocol: Document 07/13/18 13:56 MMULN (Rec: 07/13/18 14:10 [email or web address]- [id number]) Nutritional Asmnt/Malnutrition Patient General Information Nutritional Screening Consult Diagnosis ESRD, anasarca Pertinent Medical Hx/Surgical Hx Seizure, hep C, diabetes, CAD, HTN, CVA, quadreplegia, Parkinsons, ESRD Subjective Information Consult received for "Diabetic ". Per nursing notes, patient receives hemodialysis MWF and patient is non-verbal. Patient with 2+ pitting edema. Current Diet Order/ Nutrition Support Renal diet Patient / S.O Not Indicated Pertinent Medications D50W, D5-0.45NS @50 ml/hr, Glucagon, Novolog Pertinent Labs (07/13) Na 134, BUN 48, Cr 2.9, glucose 41-137, Ca 8.2, BNP 515, albumin 2 Nutritional Hx/Data Height 1.73 m Height (Calculated Centimeters) 172.7 Current Weight (lbs) 113.852 kg Weight (Calculated Kilograms) 113.9 Weight (Calculated Grams) 616426.7 [place] Body Weight 140 % [place] Body Weight 179 Body Mass Index (BMI) 38.1 Recent Weight Change No Weight Status Morbidly Obese GI Symptoms GI Symptoms None Last BM 07/13 x 1 Difficult in: Chewing Food Allergies No Cultural/Ethnic/Scientologist Belief none indicated Usual diet at home unknown Skin Integrity/Comment: Arian 10, ulceration on sacrum, left lower leg, abrasion on L heel, scar on right leg. Current %PO Good (75-100%) Estimated Nutritional Goals BEE in Kcals: Adj wt of IBW Calories/Kcals/Kg 27-32 kcal/kg (using 76.2kg ADj wt) Kcals Calculated ~7259-6228 kcal/day Protein g/k.2-1.5 gm/kg using Adj wt Protein Calculated ~90-115 gm/day Fluid: ml Per MD due to HD Nutritional Problem 2. Problem Problem Altered nutrition related lab values related to Etiology episodes of hypoglycemia, electrolyte imbalance aeb Signs/Symptoms: Na 134, glucose 41-137, Ca 8.2 1. Problem Problem Increased nutrient needs related to Etiology hypermetabolic state, impaired skin integrity aeb Signs/Symptoms: Pt on Hemodialysis and with multiple ulcerations Intervention/Recommendation Comments 1. Continue Renal diet as tolerated by patient. No need for DM restriction at this time due to hypoglycemia. 2. Consider fluid restriction due to HD, hyponatremia and edema. 3. Consider adding Prosource 1 packet with each meal for an additional 45gm protein. Expected Outcomes/Goals Expected Outcomes/Goals Oral intake >75% of meals, weight stable or trend toward ideal body weight, nutrition related labs WNL
[2018-07-21] MEDS: Lactobacillus Rhamnosus GG 15 Billion CFU CAP.SPRINK PO SCH (09:23)
[2018-07-21] MEDS: Vitamin B Complex w/Vitamin C Tab PO SCH (09:23)
[2018-07-21] MEDS: Docusate Sodium 100 mg/10 mL UD PO SCH ×2 (09:24→16:09)
[2018-07-21] MEDS: Venelex 60gm Tube TP SCH (09:24)
--- NOTE | 2018-07-21 14:05 | General Progress Note ---
Subjective - Review of Systems Service Date: 07/21/18 Subjective: sleeping, min SOB Objective - Results Result Diagrams: 07/21/18 05:00 07/21/18 05:00 Recent Labs: Laboratory Last Values WBC 5.0 Th/cmm (4.8-10.8) 07/21/18 05:00 RBC 3.05 Mil/cmm (3.80-5.10) L 07/21/18 05:00 Hgb 8.8 gm/dL (12-16) L 07/21/18 05:00 Hct 26.8 % (41.0-60) L 07/21/18 05:00 MCV 88.0 fl (81-100) 07/21/18 05:00 MCH 28.7 pg (27.0-31.0) 07/21/18 05:00 MCHC Differential 32.6 pg (28.0-36.0) 07/21/18 05:00 RDW 16.7 % (11.5-20.0) 07/21/18 05:00 Plt Count 124 Th/cmm (150-400) L 07/21/18 05:00 MPV 7.4 fl 07/21/18 05:00 Add Manual Diff YES 07/18/18 09:02 Neutrophils % 52.9 % (40.0-80.0) 07/21/18 05:00 Band Neutrophils % 1 % (0-10) 07/18/18 09:02 Lymphocytes % 34.6 % (20.0-50.0) 07/21/18 05:00 Monocytes % 11.9 % (2.0-10.0) H 07/21/18 05:00 Eosinophils % 0.3 % (0.0-5.0) 07/21/18 05:00 Basophils % 0.3 % (0.0-2.0) 07/21/18 05:00 Neutrophils (Manual) 52 % (40-80) 07/18/18 09:02 Lymphocytes 36 % (20-50) 07/18/18 09:02 Monocytes 11 % (2-10) H 07/18/18 09:02 Eosinophils 0 % (0-5) 07/18/18 09:02 Basophils 0 % (0-3) 07/18/18 09:02 Platelet Estimate DECREASED PLATELETS (NORMAL) 07/18/18 09:02 PT 37.7 SECONDS (9.5-11.5) H 07/21/18 05:00 INR 3.87 (0.5-1.4) H 07/21/18 05:00 PTT (Actin FS) 43.0 SECONDS (26.0-38.0) H 07/20/18 08:08 Sodium 139 mEq/L (136-145) 07/21/18 05:00 Potassium 3.6 mEq/L (3.5-5.1) 07/21/18 05:00 Chloride 105 mEq/L (98-107) 07/21/18 05:00 Carbon Dioxide 27.8 mEq/L (21.0-31.0) 07/21/18 05:00 Anion Gap 9.8 (7.0-16.0) 07/21/18 05:00 BUN 11 mg/dL (7-25) 07/21/18 05:00 Creatinine 2.3 mg/dL (0.6-1.2) H 07/21/18 05:00 Est GFR ( Amer) 29.0 ml/min (>90) 07/21/18 05:00 Est GFR (Non-Af Amer) 24.0 ml/min 07/21/18 05:00 BUN/Creatinine Ratio 4.8 07/21/18 05:00 Glucose 139 mg/dL (70-105) H 07/21/18 05:00 POC Glucose 144 MG/DL (70 - 105) H 07/21/18 11:51 Whole Bld Lactic Acid 1.29 mmol/L (0.60-1.99) 07/12/18 20:50 Calcium 8.1 mg/dL (8.6-10.3) L 07/21/18 05:00 Magnesium 1.6 mg/dL (1.9-2.7) L 07/21/18 05:00 Total Bilirubin 0.3 mg/dL (0.3-1.0) 07/18/18 05:20 AST 18 U/L (13-39) 07/18/18 05:20 ALT 7 U/L (7-52) 07/18/18 05:20 Alkaline Phosphatase 80 U/L (34-104) 07/18/18 05:20 Creatine Kinase 20 U/L (30-223) L 07/12/18 20:50 Troponin I 0.49 ng/mL (0.01-0.05) H* 07/13/18 15:20 B-Natriuretic Peptide 515.0 pg/mL (5.0-100.0) H 07/13/18 04:00 Total Protein 4.0 gm/dL (6.0-8.3) L 07/18/18 05:20 Albumin < 1.5 gm/dL (3.7-5.3) L 07/18/18 05:20 Globulin 2.5 gm/dL 07/18/18 05:20 Albumin/Globulin Ratio 0.6 (1.0-1.8) L 07/18/18 05:20 Triglycerides 53 mg/dL (<150) 07/13/18 04:00 Cholesterol 41 mg/dL (<200) 07/13/18 04:00 LDL Cholesterol Direct 11 mg/dL (75-193) L 07/13/18 04:00 HDL Cholesterol 24 mg/dL (23-92) 07/13/18 04:00 TSH 1.21 uIU/ml (0.34-5.60) 07/13/18 04:00 Urine Source [place] 07/12/18 20:50 Urine Color YELLOW 07/12/18 20:50 Urine Clarity CLOUDY (CLEAR) H 07/12/18 20:50 Urine pH 8.5 (4.6 - 8.0) 07/12/18 20:50 Ur Specific [place] 1.015 (1.005-1.030) 07/12/18 20:50 Urine Protein 100 mg/dL (NEGATIVE) H 07/12/18 20:50 Urine Glucose (UA) NEGATIVE mg/dL (NEGATIVE) 07/12/18 20:50 Urine Ketones NEGATIVE mg/dL (NEGATIVE) 07/12/18 20:50 Urine Blood TRACE (NEGATIVE) 07/12/18 20:50 Urine Nitrate NEGATIVE (NEGATIVE) 07/12/18 20:50 Urine Bilirubin NEGATIVE (NEGATIVE) 07/12/18 20:50 Urine Urobilinogen 0.2 E.U./dL (0.2 - 1.0) 07/12/18 20:50 Ur Leukocyte Esterase LARGE (NEGATIVE) H 07/12/18 20:50 Urine RBC 2-5 /hpf (0-5) 07/12/18 20:50 Urine WBC >100 /hpf (0-5) H 07/12/18 20:50 Ur Epithelial Cells MODERATE /lpf (FEW) 07/12/18 20:50 Urine Bacteria MANY /hpf (NONE SEEN) H 07/12/18 20:50 Amikacin Peak 16.9 ug/mL (20.0-30.0) L 07/19/18 10:15 Amikacin Trough 5.5 ug/mL (1.0-8.0) 07/18/18 18:30 Random Vancomycin 20.7 ug/mL (5.0-40.0) 07/20/18 04:45 - Physical Exam Vitals and I&O: Vital Signs Temp 97.0 F 07/21/18 12:12 Pulse 101 07/21/18 12:12 Resp 18 07/21/18 12:12 BP 110/56 07/21/18 12:12 Pulse Ox 100 07/21/18 12:12 Intake & Output 07/20/18 07/21/18 07/21/18 18:59 06:59 18:59 Intake Total 950 320 Output Total 3550 Balance 950 -3230 Weight (lbs) 114.305 kg 112.037 kg Intake: Intake, IV Amount 350 100 Tigecycline 50 mg In 100 100 Sodium Chloride 0.9% 100 ml @ 100 mls/hr IV Q12HR [facility] Rx#:[id number] Vancomycin HCl 1 gm In 250 Sodium Chloride 0.9% 250 ml @ 165 mls/hr IV ONCE ONE Rx#:[id number] Oral 600 120 Other 100 Output: Urine 50 Hemodialysis 3500 Other: # Bowel Movements 1 Stool Characteristics Soft Soft Formed Brown Brown Weight Source Bedscale Bedscale Active Medications: Current Medications Acetaminophen (Tylenol) 650 mg PO Q6H PRN PRN Reason: Pain or Fever >101 Stop: 09/11/18 15:14 Albuterol/Ipratropium (Duoneb Neb) 3 ml HHN Q4HRT PRN PRN Reason: Shortness of Breath or Wheeze Stop: 09/11/18 15:14 Ascorbic Acid (Vitamin C) 500 mg PO DAILY [facility] Stop: 09/12/18 08:59 Last Admin: 07/21/18 09:23 Dose: 500 mg Atorvastatin Calcium (Lipitor) 20 mg PO HS [facility] Stop: 09/11/18 20:59 Last Admin: 07/20/18 22:00 Dose: 20 mg [place] Oil/[place] Balsam/Trypsin (Venelex) 1 appl TP DAILY [facility] Stop: 09/13/18 08:59 Last Admin: 07/21/18 09:24 Dose: 1 appl Dextrose (Glutose 40%) 18.75 gm PO PRN PRN PRN Reason: Blood Glucose less than 70 Stop: 09/11/18 04:10 Docusate Sodium (Colace) 100 mg PO BID [facility] Stop: 09/11/18 16:59 Last Admin: 07/21/18 09:24 Dose: 100 mg Famotidine (Pepcid) 20 mg PO DAILY [facility] Stop: 09/12/18 08:59 Last Admin: 07/21/18 09:23 Dose: 20 mg Folic Acid (Folate) 1 mg PO DAILY [facility] Stop: 09/12/18 08:59 Last Admin: 07/21/18 09:23 Dose: 1 mg Glucagon (Glucagen) 1 mg IM PRN PRN PRN Reason: Blood Glucose less than 70 Stop: 09/11/18 04:10 Heparin Sodium (Porcine) (Heparin) 5,000 units SUBQ Q12HR [facility] Stop: 09/17/18 20:59 Last Admin: 07/21/18 09:33 Dose: Not Given Tigecycline 50 mg/ Sodium (Chloride) 100 mls @ 100 mls/hr IV Q12HR [facility] Stop: 07/26/18 08:59 Last Admin: 07/21/18 09:24 Dose: 100 mls/hr Insulin Aspart (Novolog Insulin Sliding Scale) 0 units SUBQ Q6HR [facility]; Protocol Stop: 09/11/18 05:59 Last Admin: 07/21/18 11:56 Dose: Not Given Lactobacillus Rhamnosus (Culturelle 15b) 1 each PO DAILY [facility] Stop: 09/13/18 13:59 Last Admin: 07/21/18 09:23 Dose: 1 each Levothyroxine Sodium (Synthroid) 0.025 mg PO QDAC [facility] Stop: 09/12/18 07:29 Last Admin: 07/21/18 06:35 Dose: 0.025 mg Miscellaneous (Probiotic Screen) 1 ea PRN PRN PRN Reason: PROTOCOL Stop: 09/13/18 11:44 Miscellaneous (Amikacin Iv Per Pharmacy) 1 ea PRN PRN PRN Reason: PROTOCOL Stop: 09/13/18 18:08 Miscellaneous (Vancomycin Iv Per Pharmacy) 1 ea PRN [facility] Stop: 09/14/18 18:59 Oxcarbazepine (Trileptal) 600 mg PO BID [facility] Stop: 09/11/18 16:59 Last Admin: 07/21/18 09:22 Dose: 600 mg Risperidone (Risperdal) 2 mg PO HS [facility] Stop: 09/11/18 20:59 Last Admin: 07/20/18 22:00 Dose: 2 mg Senna (Senna) 17.2 mg PO BID [facility] Stop: 09/11/18 16:59 Last Admin: 07/21/18 09:23 Dose: 17.2 mg Sevelamer Carbonate (Renvela) 800 mg PO TIDWM [facility] Stop: 09/11/18 16:59 Last Admin: 07/21/18 12:16 Dose: 800 mg Vitamin B Complex/Vit C/Folic Acid (Vitamin B Complex W/Vitamin C) 1 tab PO DAILY [facility] Stop: 09/12/18 08:59 Last Admin: 07/21/18 09:23 Dose: 1 tab Zinc Sulfate (Zinc Sulfate) 220 mg PO DAILY [facility] Stop: 09/12/18 08:59 Last Admin: 07/21/18 09:22 Dose: 220 mg General: Alert, Mild distress HEENT: Atraumatic, EOMI Neck: Supple, +2 carotid pulse wo bruit Cardiovascular: Regular rate, Normal S1, Normal S2 Lungs: Other (scattered rales) Abdomen: Bowel sounds, Soft Extremities: Edema ((+) 2-3 edema), Other ((+) 2 bipedal edema) Neurological: Sensation intact Skin: no Rash Psych/Mental Status: Mood NL Assessment/Plan - Assessment Assessment: ESRD on HD Hypothyroid Parkinson Ds. Fnc Quad Hep B,C GERD Left Calf ulcer Sacral Decub ulcer Cholelithiasis B/L HAP w/ effusions Peripheral edema Left SFV DVT - Plan Plan: Lab - Result Diagrams 07/14/18 05:00 07/14/18 05:00 Current Medications Acetaminophen (Tylenol) 650 mg PO Q6H PRN PRN Reason: Pain or Fever >101 Stop: 09/11/18 15:14 Acetaminophen/Hydrocodone Bitart ([place] 5mg/325mg) 1 tab PO Q6H PRN PRN Reason: Pain (Severe) Stop: 09/11/18 15:14 Albuterol/Ipratropium (Duoneb Neb) 3 ml HHN Q4HRT PRN PRN Reason: Shortness of Breath or Wheeze Stop: 09/11/18 15:14 Ascorbic Acid (Vitamin C) 500 mg PO DAILY [facility] Stop: 09/12/18 08:59 Last Admin: 07/14/18 08:27 Dose: 500 mg Atorvastatin Calcium (Lipitor) 20 mg PO HS [facility] Stop: 09/11/18 20:59 Last Admin: 07/13/18 21:05 Dose: 20 mg Dextrose (D50w) 50 ml IVP PRN PRN PRN Reason: Blood Glucose less than 70 Stop: 09/11/18 04:10 Dextrose (Glutose 40%) 18.75 gm PO PRN PRN PRN Reason: Blood Glucose less than 70 Stop: 09/11/18 04:10 Docusate Sodium (Colace) 100 mg PO BID [facility] Stop: 09/11/18 16:59 Last Admin: 07/14/18 08:27 Dose: 100 mg Famotidine (Pepcid) 20 mg PO DAILY [facility] Stop: 09/12/18 08:59 Last Admin: 07/14/18 08:27 Dose: 20 mg Folic Acid (Folate) 1 mg PO DAILY [facility] Stop: 09/12/18 08:59 Last Admin: 07/14/18 08:27 Dose: 1 mg Glucagon (Glucagen) 1 mg IM PRN PRN PRN Reason: Blood Glucose less than 70 Stop: 09/11/18 04:10 Piperacillin Sod/Tazobactam (Sod 2.25 gm/ Sodium Chloride) 50 mls @ 100 mls/hr IV Q6H [facility] Stop: 09/11/18 05:59 Last Admin: 07/14/18 06:05 Dose: Not Given Dextrose/Sodium Chloride (D5-0.45ns) 1,000 mls @ 50 mls/hr IV .Q20H [facility] Stop: 09/11/18 02:29 Last Admin: 07/13/18 04:03 Dose: 50 mls/hr Insulin Aspart (Novolog Insulin Sliding Scale) 0 units SUBQ Q6HR [facility]; Protocol Stop: 09/11/18 05:59 Last Admin: 07/14/18 06:05 Dose: Not Given Levothyroxine Sodium (Synthroid) 0.025 mg PO QDAC [facility] Stop: 09/12/18 07:29 Last Admin: 07/14/18 06:35 Dose: 0.025 mg Miscellaneous (Vancomycin Iv Per Pharmacy) 1 ea PRN PRN PRN Reason: PROTOCOL Stop: 09/10/18 23:40 Oxcarbazepine (Trileptal) 600 mg PO BID [facility] Stop: 09/11/18 16:59 Last Admin: 07/14/18 08:27 Dose: 600 mg Risperidone (Risperdal) 2 mg PO HS [facility] Stop: 09/11/18 20:59 Last Admin: 07/13/18 21:05 Dose: 2 mg Senna (Senna) 17.2 mg PO BID [facility] Stop: 09/11/18 16:59 Last Admin: 07/14/18 08:27 Dose: 17.2 mg Sevelamer Carbonate (Renvela) 800 mg PO TIDWM [facility] Stop: 09/11/18 16:59 Last Admin: 07/14/18 08:27 Dose: 800 mg Temazepam (Restoril) 15 mg PO HS PRN; Protocol PRN Reason: Insomnia Stop: 09/11/18 15:14 Vitamin B Complex/Vit C/Folic Acid (Vitamin B Complex W/Vitamin C) 1 tab PO DAILY [facility] Stop: 09/12/18 08:59 Last Admin: 07/14/18 08:27 Dose: 1 tab Zinc Sulfate (Zinc Sulfate) 220 mg PO DAILY [facility] Stop: 09/12/18 08:59 Last Admin: 07/14/18 08:27 Dose: 220 mg Lab - Result Diagrams 07/21/18 05:00 07/21/18 05:00 Cr. more elevated w/ peripheral edema continue wound care Pt. will need diverting colostomy to avoid irritation & promote healing of stage 4 sacral decubitus ulcer CXR still w/ persistent CHF, congestion: f/u CXR schedule for HD again today hold Coumadin for possible surgery in am Nutritional Asmnt/Malnutr-PDOC - Dietary Evaluation Malnutrition Findings (Please click <Entered> for more info): Nutritional Asmnt/Malnutrition Start: 07/13/18 13: 54 Text: Status: Complete Freq: Protocol: Document 07/13/18 13:56 MMULHERN (Rec: 07/13/18 14:10 ALDAIR NASH- [id number]) Nutritional Asmnt/Malnutrition Patient General Information Nutritional Screening Consult Diagnosis ESRD, anasarca Pertinent Medical Hx/Surgical Hx Seizure, hep C, diabetes, CAD, HTN, CVA, quadreplegia, Parkinsons, ESRD Subjective Information Consult received for "Diabetic ". Per nursing notes, patient receives hemodialysis MWF and patient is non-verbal. Patient with 2+ pitting edema. Current Diet Order/ Nutrition Support Renal diet Patient / S.O Not Indicated Pertinent Medications D50W, D5-0.45NS @50 ml/hr, Glucagon, Novolog Pertinent Labs (07/13) Na 134, BUN 48, Cr 2.9, glucose 41-137, Ca 8.2, BNP 515, albumin 2 Nutritional Hx/Data Height 1.73 m Height (Calculated Centimeters) 172.7 Current Weight (lbs) 113.852 kg Weight (Calculated Kilograms) 113.9 Weight (Calculated Grams) 761398.7 [place] Body Weight 140 % [place] Body Weight 179 Body Mass Index (BMI) 38.1 Recent Weight Change No Weight Status Morbidly Obese GI Symptoms GI Symptoms None Last BM 07/13 x 1 Difficult in: Chewing Food Allergies No Cultural/Ethnic/Holiness Belief none indicated Usual diet at home unknown Skin Integrity/Comment: Arian 10, ulceration on sacrum, left lower leg, abrasion on L heel, scar on right leg. Current %PO Good (75-100%) Estimated Nutritional Goals BEE in Kcals: Adj wt of IBW Calories/Kcals/Kg 27-32 kcal/kg (using 76.2kg ADj wt) Kcals Calculated ~8939-0659 kcal/day Protein g/k.2-1.5 gm/kg using Adj wt Protein Calculated ~90-115 gm/day Fluid: ml Per MD due to HD Nutritional Problem 2. Problem Problem Altered nutrition related lab values related to Etiology episodes of hypoglycemia, electrolyte imbalance aeb Signs/Symptoms: Na 134, glucose 41-137, Ca 8.2 1. Problem Problem Increased nutrient needs related to Etiology hypermetabolic state, impaired skin integrity aeb Signs/Symptoms: Pt on Hemodialysis and with multiple ulcerations Intervention/Recommendation Comments 1. Continue Renal diet as tolerated by patient. No need for DM restriction at this time due to hypoglycemia. 2. Consider fluid restriction due to HD, hyponatremia and edema. 3. Consider adding Prosource 1 packet with each meal for an additional 45gm protein. Expected Outcomes/Goals Expected Outcomes/Goals Oral intake >75% of meals, weight stable or trend toward ideal body weight, nutrition related labs WNL
--- NOTE | 2018-07-21 16:09 | Consultation ---
DATE OF CONSULTATION: 07/21/2018 HISTORY OF PRESENT ILLNESS: A 47-year-old female coming in from [facility] with severe facial swelling, extremity swelling, decreased saturation, given glucagon. On [id number], the patient slow to respond. She does not know where she is. She feels the year is 1999, not quite sure about the month. Denying any sadness. Denying any anxiety. States that she is sleeping okay. Denying any distress, very slow to respond, not a good historian. PAST MEDICAL HISTORY: Functional quadriparesis and Parkinson's. PAST PSYCHIATRIC HISTORY: Denies any suicide attempts in the past. SOCIAL HISTORY: States that she was born in [place], not , no kids, no drugs, no alcohol, no tobacco. MENTAL STATUS EXAMINATION: -[place] female, appearing older than her stated age. Speech monotone, whispering at times. His mood "okay." Affect flat. Thought processes were grossly linear, just slow to respond, and somewhat disoriented. No SI, no HI, no overt psychotic symptoms. Insight and judgment seemingly diminished. PROVISIONAL DIAGNOSIS: Concerns are cognitive decline and impairment, mood unspecified. MEDICAL: Please see full H and P. RECOMMENDATIONS AND PLAN: No behaviors noted at this time. The patient is currently on Risperdal. It is unclear if she has an underlying psychiatric disorder, rule out schizophrenia. We will monitor and follow up. [facility]# [id number]
--- NOTE | 2018-07-21 19:57 | Internal Medicine Prog Note ---
Internal Medicine Subjective - Subjective Service Date: 07/21/18 Patient seen and examined:: with staff Patient is:: awake Per staff patient has:: tolerating meds Internal Medicine Objective - Results Result Diagrams: 07/21/18 05:00 07/21/18 05:00 Recent Labs: Laboratory Last Values WBC 5.0 Th/cmm (4.8-10.8) 07/21/18 05:00 RBC 3.05 Mil/cmm (3.80-5.10) L 07/21/18 05:00 Hgb 8.8 gm/dL (12-16) L 07/21/18 05:00 Hct 26.8 % (41.0-60) L 07/21/18 05:00 MCV 88.0 fl (81-100) 07/21/18 05:00 MCH 28.7 pg (27.0-31.0) 07/21/18 05:00 MCHC Differential 32.6 pg (28.0-36.0) 07/21/18 05:00 RDW 16.7 % (11.5-20.0) 07/21/18 05:00 Plt Count 124 Th/cmm (150-400) L 07/21/18 05:00 MPV 7.4 fl 07/21/18 05:00 Add Manual Diff YES 07/18/18 09:02 Neutrophils % 52.9 % (40.0-80.0) 07/21/18 05:00 Band Neutrophils % 1 % (0-10) 07/18/18 09:02 Lymphocytes % 34.6 % (20.0-50.0) 07/21/18 05:00 Monocytes % 11.9 % (2.0-10.0) H 07/21/18 05:00 Eosinophils % 0.3 % (0.0-5.0) 07/21/18 05:00 Basophils % 0.3 % (0.0-2.0) 07/21/18 05:00 Neutrophils (Manual) 52 % (40-80) 07/18/18 09:02 Lymphocytes 36 % (20-50) 07/18/18 09:02 Monocytes 11 % (2-10) H 07/18/18 09:02 Eosinophils 0 % (0-5) 07/18/18 09:02 Basophils 0 % (0-3) 09/08/18 09:02 Platelet Estimate DECREASED PLATELETS (NORMAL) 07/18/18 09:02 PT 37.7 SECONDS (9.5-11.5) H 07/21/18 05:00 INR 3.87 (0.5-1.4) H 07/21/18 05:00 PTT (Actin FS) 43.0 SECONDS (26.0-38.0) H 07/20/18 08:08 Sodium 139 mEq/L (136-145) 07/21/18 05:00 Potassium 3.6 mEq/L (3.5-5.1) 07/21/18 05:00 Chloride 105 mEq/L (98-107) 07/21/18 05:00 Carbon Dioxide 27.8 mEq/L (21.0-31.0) 07/21/18 05:00 Anion Gap 9.8 (7.0-16.0) 07/21/18 05:00 BUN 11 mg/dL (7-25) 07/21/18 05:00 Creatinine 2.3 mg/dL (0.6-1.2) H 07/21/18 05:00 Est GFR ( Amer) 29.0 ml/min (>90) 07/21/18 05:00 Est GFR (Non-Af Amer) 24.0 ml/min 07/21/18 05:00 BUN/Creatinine Ratio 4.8 07/21/18 05:00 Glucose 139 mg/dL (70-105) H 07/21/18 05:00 POC Glucose 136 MG/DL (70 - 105) H 07/21/18 17:12 Whole Bld Lactic Acid 1.29 mmol/L (0.60-1.99) 07/12/18 20:50 Calcium 8.1 mg/dL (8.6-10.3) L 07/21/18 05:00 Magnesium 1.6 mg/dL (1.9-2.7) L 07/21/18 05:00 Total Bilirubin 0.3 mg/dL (0.3-1.0) 07/18/18 05:20 AST 18 U/L (13-39) 07/18/18 05:20 ALT 7 U/L (7-52) 07/18/18 05:20 Alkaline Phosphatase 80 U/L (34-104) 07/18/18 05:20 Creatine Kinase 20 U/L (30-223) L 07/12/18 20:50 Troponin I 0.49 ng/mL (0.01-0.05) H* 07/13/18 15:20 B-Natriuretic Peptide 515.0 pg/mL (5.0-100.0) H 07/13/18 04:00 Total Protein 4.0 gm/dL (6.0-8.3) L 07/18/18 05:20 Albumin < 1.5 gm/dL (3.7-5.3) L 07/18/18 05:20 Globulin 2.5 gm/dL 07/18/18 05:20 Albumin/Globulin Ratio 0.6 (1.0-1.8) L 07/18/18 05:20 Triglycerides 53 mg/dL (<150) 07/13/18 04:00 Cholesterol 41 mg/dL (<200) 07/13/18 04:00 LDL Cholesterol Direct 11 mg/dL (75-193) L 07/13/18 04:00 HDL Cholesterol 24 mg/dL (23-92) 07/13/18 04:00 TSH 1.21 uIU/ml (0.34-5.60) 07/13/18 04:00 Urine Source [place] 07/12/18 20:50 Urine Color YELLOW 07/12/18 20:50 Urine Clarity CLOUDY (CLEAR) H 07/12/18 20:50 Urine pH 8.5 (4.6 - 8.0) 07/12/18 20:50 Ur Specific [place] 1.015 (1.005-1.030) 07/12/18 20:50 Urine Protein 100 mg/dL (NEGATIVE) H 07/12/18 20:50 Urine Glucose (UA) NEGATIVE mg/dL (NEGATIVE) 07/12/18 20:50 Urine Ketones NEGATIVE mg/dL (NEGATIVE) 07/12/18 20:50 Urine Blood TRACE (NEGATIVE) 07/12/18 20:50 Urine Nitrate NEGATIVE (NEGATIVE) 07/12/18 20:50 Urine Bilirubin NEGATIVE (NEGATIVE) 07/12/18 20:50 Urine Urobilinogen 0.2 E.U./dL (0.2 - 1.0) 07/12/18 20:50 Ur Leukocyte Esterase LARGE (NEGATIVE) H 07/12/18 20:50 Urine RBC 2-5 /hpf (0-5) 07/12/18 20:50 Urine WBC >100 /hpf (0-5) H 07/12/18 20:50 Ur Epithelial Cells MODERATE /lpf (FEW) 07/12/18 20:50 Urine Bacteria MANY /hpf (NONE SEEN) H 07/12/18 20:50 Amikacin Peak 16.9 ug/mL (20.0-30.0) L 07/19/18 10:15 Amikacin Trough 5.5 ug/mL (1.0-8.0) 07/18/18 18:30 Random Vancomycin 20.7 ug/mL (5.0-40.0) 07/20/18 04:45 - Physical Exam Vitals and I&O: Vital Signs Temp 96.7 F 07/21/18 16:00 Pulse 95 07/21/18 16:00 Resp 18 07/21/18 16:00 BP 111/40 07/21/18 16:00 Pulse Ox 98 07/21/18 16:00 Intake & Output 07/21/18 07/21/18 07/22/18 06:59 18:59 06:59 Intake Total 320 500 Output Total 3550 40 Balance -3230 460 Weight (lbs) 247 lb 247 lb Intake: Intake, IV Amount 100 Tigecycline 50 mg In 100 Sodium Chloride 0.9% 100 ml @ 100 mls/hr IV Q12HR [facility] Rx#:[id number] Oral 120 500 Other 100 Output: Urine 50 40 Hemodialysis 3500 Other: # Bowel Movements 1 0 Stool Characteristics Soft Soft Formed Brown Brown Weight Source Bedscale Bedscale Active Medications: Current Medications Acetaminophen (Tylenol) 650 mg PO Q6H PRN PRN Reason: Pain or Fever >101 Stop: 09/11/18 15:14 Albuterol/Ipratropium (Duoneb Neb) 3 ml HHN Q4HRT PRN PRN Reason: Shortness of Breath or Wheeze Stop: 09/11/18 15:14 Ascorbic Acid (Vitamin C) 500 mg PO DAILY [facility] Stop: 09/12/18 08:59 Last Admin: 07/21/18 09:23 Dose: 500 mg Atorvastatin Calcium (Lipitor) 20 mg PO HS [facility] Stop: 09/11/18 20:59 Last Admin: 07/20/18 22:00 Dose: 20 mg [place] Oil/[place] Balsam/Trypsin (Venelex) 1 appl TP DAILY [facility] Stop: 09/13/18 08:59 Last Admin: 07/21/18 09:24 Dose: 1 appl Dextrose (Glutose 40%) 18.75 gm PO PRN PRN PRN Reason: Blood Glucose less than 70 Stop: 09/11/18 04:10 Docusate Sodium (Colace) 100 mg PO BID [facility] Stop: 09/11/18 16:59 Last Admin: 07/21/18 16:09 Dose: 100 mg Famotidine (Pepcid) 20 mg PO DAILY [facility] Stop: 09/12/18 08:59 Last Admin: 07/21/18 09:23 Dose: 20 mg Folic Acid (Folate) 1 mg PO DAILY [facility] Stop: 09/12/18 08:59 Last Admin: 07/21/18 09:23 Dose: 1 mg Glucagon (Glucagen) 1 mg IM PRN PRN PRN Reason: Blood Glucose less than 70 Stop: 09/11/18 04:10 Heparin Sodium (Porcine) (Heparin) 5,000 units SUBQ Q12HR [facility] Stop: 09/17/18 20:59 Last Admin: 07/21/18 09:33 Dose: Not Given Tigecycline 50 mg/ Sodium (Chloride) 100 mls @ 100 mls/hr IV Q12HR [facility] Stop: 07/26/18 08:59 Last Admin: 07/21/18 09:24 Dose: 100 mls/hr Insulin Aspart (Novolog Insulin Sliding Scale) 0 units SUBQ Q6HR [facility]; Protocol Stop: 09/11/18 05:59 Last Admin: 07/21/18 17:15 Dose: Not Given Lactobacillus Rhamnosus (Culturelle 15b) 1 each PO DAILY [facility] Stop: 09/13/18 13:59 Last Admin: 07/21/18 09:23 Dose: 1 each Levothyroxine Sodium (Synthroid) 0.025 mg PO QDAC [facility] Stop: 09/12/18 07:29 Last Admin: 07/21/18 06:35 Dose: 0.025 mg Miscellaneous (Probiotic Screen) 1 ea PRN PRN PRN Reason: PROTOCOL Stop: 09/13/18 11:44 Miscellaneous (Amikacin Iv Per Pharmacy) 1 ea PRN PRN PRN Reason: PROTOCOL Stop: 09/13/18 18:08 Miscellaneous (Vancomycin Iv Per Pharmacy) 1 ea MC PRN [facility] Stop: 09/14/18 18:59 Oxcarbazepine (Trileptal) 600 mg PO BID [facility] Stop: 09/11/18 16:59 Last Admin: 07/21/18 16:09 Dose: 600 mg Risperidone (Risperdal) 2 mg PO HS [facility] Stop: 09/11/18 20:59 Last Admin: 07/20/18 22:00 Dose: 2 mg Senna (Senna) 17.2 mg PO BID [facility] Stop: 09/11/18 16:59 Last Admin: 07/21/18 16:09 Dose: 17.2 mg Sevelamer Carbonate (Renvela) 800 mg PO TIDWM [facility] Stop: 09/11/18 16:59 Last Admin: 07/21/18 16:09 Dose: 800 mg Vitamin B Complex/Vit C/Folic Acid (Vitamin B Complex W/Vitamin C) 1 tab PO DAILY [facility] Stop: 09/12/18 08:59 Last Admin: 07/21/18 09:23 Dose: 1 tab Zinc Sulfate (Zinc Sulfate) 220 mg PO DAILY [facility] Stop: 09/12/18 08:59 Last Admin: 07/21/18 09:22 Dose: 220 mg General: weak, alert HEENT: NC/AT, PERRLA Neck: Supple Lungs: CTAB Abdomen: soft, non-tender, non-distended Extremities: other (sacrum ulcer) Neurological: alert Internal Medicine Assmt/Plan - Assessment Assessment: Sacral wound stage 4 acute uti dm 1 anemia cad chf anasarca ckd stage 5 on hd - Plan Plan: continue ivabx as per id wound care to continue hd as per renal continue current plan of care Nutritional Asmnt/Malnutr-PDOC - Dietary Evaluation Malnutrition Findings (Please click <Entered> for more info): Nutritional Asmnt/Malnutrition Start: 07/13/18 13: 54 Text: Status: Complete Freq: Protocol: Document 07/13/18 13:56 MMERIN (Rec: 07/13/18 14:10 ALDAIR NASH- FNS1) Nutritional Asmnt/Malnutrition Patient General Information Nutritional Screening Consult Diagnosis ESRD, anasarca Pertinent Medical Hx/Surgical Hx Seizure, hep C, diabetes, CAD, HTN, CVA, quadreplegia, Parkinsons, ESRD Subjective Information Consult received for "Diabetic ". Per nursing notes, patient receives hemodialysis MWF and patient is non-verbal. Patient with 2+ pitting edema. Current Diet Order/ Nutrition Support Renal diet Patient / S.O Not Indicated Pertinent Medications D50W, D5-0.45NS @50 ml/hr, Glucagon, Novolog Pertinent Labs (07/13) Na 134, BUN 48, Cr 2.9, glucose 41-137, Ca 8.2, BNP 515, albumin 2 Nutritional Hx/Data Height 5 ft 8 in Height (Calculated Centimeters) 172.7 Current Weight (lbs) 251 lb Weight (Calculated Kilograms) 113.9 Weight (Calculated Grams) 869929.7 [place] Body Weight 140 % [place] Body Weight 179 Body Mass Index (BMI) 38.1 Recent Weight Change No Weight Status Morbidly Obese GI Symptoms GI Symptoms None Last BM 07/13 x 1 Difficult in: Chewing Food Allergies No Cultural/Ethnic/Sikhism Belief none indicated Usual diet at home unknown Skin Integrity/Comment: Arian 10, ulceration on sacrum, left lower leg, abrasion on L heel, scar on right leg. Current %PO Good (75-100%) Estimated Nutritional Goals BEE in Kcals: Adj wt of IBW Calories/Kcals/Kg 27-32 kcal/kg (using 76.2kg ADj wt) Kcals Calculated ~8045-4751 kcal/day Protein g/k.2-1.5 gm/kg using Adj wt Protein Calculated ~90-115 gm/day Fluid: ml Per MD due to HD Nutritional Problem 2. Problem Problem Altered nutrition related lab values related to Etiology episodes of hypoglycemia, electrolyte imbalance aeb Signs/Symptoms: Na 134, glucose 41-137, Ca 8.2 1. Problem Problem Increased nutrient needs related to Etiology hypermetabolic state, impaired skin integrity aeb Signs/Symptoms: Pt on Hemodialysis and with multiple ulcerations Intervention/Recommendation Comments 1. Continue Renal diet as tolerated by patient. No need for DM restriction at this time due to hypoglycemia. 2. Consider fluid restriction due to HD, hyponatremia and edema. 3. Consider adding Prosource 1 packet with each meal for an additional 45gm protein. Expected Outcomes/Goals Expected Outcomes/Goals Oral intake >75% of meals, weight stable or trend toward ideal body weight, nutrition related labs WNL
[2018-07-21] MEDS: Atorvastatin Calcium 10 MG TAB PO SCH (20:38)
--- NOTE | 2018-07-21 23:43 | Infectious Disease Prog Note ---
Infectious Disease Subjective - Review of Systems Service Date: 07/21/18 Subjective: There is no new change, no fever./ Infectious Disease Objective - Results Result Diagrams: 07/21/18 05:00 07/21/18 05:00 Recent Labs: Laboratory Last Values WBC 5.0 Th/cmm (4.8-10.8) 07/21/18 05:00 RBC 3.05 Mil/cmm (3.80-5.10) L 07/21/18 05:00 Hgb 8.8 gm/dL (12-16) L 07/21/18 05:00 Hct 26.8 % (41.0-60) L 07/21/18 05:00 MCV 88.0 fl (81-100) 07/21/18 05:00 MCH 28.7 pg (27.0-31.0) 07/21/18 05:00 MCHC Differential 32.6 pg (28.0-36.0) 07/21/18 05:00 RDW 16.7 % (11.5-20.0) 07/21/18 05:00 Plt Count 124 Th/cmm (150-400) L 07/21/18 05:00 MPV 7.4 fl 07/21/18 05:00 Add Manual Diff YES 07/18/18 09:02 Neutrophils % 52.9 % (40.0-80.0) 07/21/18 05:00 Band Neutrophils % 1 % (0-10) 07/18/18 09:02 Lymphocytes % 34.6 % (20.0-50.0) 07/21/18 05:00 Monocytes % 11.9 % (2.0-10.0) H 07/21/18 05:00 Eosinophils % 0.3 % (0.0-5.0) 07/21/18 05:00 Basophils % 0.3 % (0.0-2.0) 07/21/18 05:00 Neutrophils (Manual) 52 % (40-80) 07/18/18 09:02 Lymphocytes 36 % (20-50) 07/18/18 09:02 Monocytes 11 % (2-10) H 07/18/18 09:02 Eosinophils 0 % (0-5) 07/18/18 09:02 Basophils 0 % (0-3) 07/18/18 09:02 Platelet Estimate DECREASED PLATELETS (NORMAL) 07/18/18 09:02 PT 37.7 SECONDS (9.5-11.5) H 07/21/18 05:00 INR 3.87 (0.5-1.4) H 07/21/18 05:00 PTT (Actin FS) 43.0 SECONDS (26.0-38.0) H 07/20/18 08:08 Sodium 139 mEq/L (136-145) 07/21/18 05:00 Potassium 3.6 mEq/L (3.5-5.1) 07/21/18 05:00 Chloride 105 mEq/L (98-107) 07/21/18 05:00 Carbon Dioxide 27.8 mEq/L (21.0-31.0) 07/21/18 05:00 Anion Gap 9.8 (7.0-16.0) 07/21/18 05:00 BUN 11 mg/dL (7-25) 07/21/18 05:00 Creatinine 2.3 mg/dL (0.6-1.2) H 07/21/18 05:00 Est GFR ( Amer) 29.0 ml/min (>90) 07/21/18 05:00 Est GFR (Non-Af Amer) 24.0 ml/min 07/21/18 05:00 BUN/Creatinine Ratio 4.8 07/21/18 05:00 Glucose 139 mg/dL (70-105) H 07/21/18 05:00 POC Glucose 136 MG/DL (70 - 105) H 07/21/18 17:12 Whole Bld Lactic Acid 1.29 mmol/L (0.60-1.99) 07/12/18 20:50 Calcium 8.1 mg/dL (8.6-10.3) L 07/21/18 05:00 Magnesium 1.6 mg/dL (1.9-2.7) L 07/21/18 05:00 Total Bilirubin 0.3 mg/dL (0.3-1.0) 07/18/18 05:20 AST 18 U/L (13-39) 07/18/18 05:20 ALT 7 U/L (7-52) 07/18/18 05:20 Alkaline Phosphatase 80 U/L (34-104) 07/18/18 05:20 Creatine Kinase 20 U/L (30-223) L 07/12/18 20:50 Troponin I 0.49 ng/mL (0.01-0.05) H* 07/13/18 15:20 B-Natriuretic Peptide 515.0 pg/mL (5.0-100.0) H 07/13/18 04:00 Total Protein 4.0 gm/dL (6.0-8.3) L 07/18/18 05:20 Albumin < 1.5 gm/dL (3.7-5.3) L 07/18/18 05:20 Globulin 2.5 gm/dL 07/18/18 05:20 Albumin/Globulin Ratio 0.6 (1.0-1.8) L 07/18/18 05:20 Triglycerides 53 mg/dL (<150) 07/13/18 04:00 Cholesterol 41 mg/dL (<200) 07/13/18 04:00 LDL Cholesterol Direct 11 mg/dL (75-193) L 07/13/18 04:00 HDL Cholesterol 24 mg/dL (23-92) 07/13/18 04:00 TSH 1.21 uIU/ml (0.34-5.60) 07/13/18 04:00 Urine Source [place] 07/12/18 20:50 Urine Color YELLOW 07/12/18 20:50 Urine Clarity CLOUDY (CLEAR) H 07/12/18 20:50 Urine pH 8.5 (4.6 - 8.0) 07/12/18 20:50 Ur Specific [place] 1.015 (1.005-1.030) 07/12/18 20:50 Urine Protein 100 mg/dL (NEGATIVE) H 07/12/18 20:50 Urine Glucose (UA) NEGATIVE mg/dL (NEGATIVE) 07/12/18 20:50 Urine Ketones NEGATIVE mg/dL (NEGATIVE) 07/12/18 20:50 Urine Blood TRACE (NEGATIVE) 07/12/18 20:50 Urine Nitrate NEGATIVE (NEGATIVE) 07/12/18 20:50 Urine Bilirubin NEGATIVE (NEGATIVE) 07/12/18 20:50 Urine Urobilinogen 0.2 E.U./dL (0.2 - 1.0) 07/12/18 20:50 Ur Leukocyte Esterase LARGE (NEGATIVE) H 07/12/18 20:50 Urine RBC 2-5 /hpf (0-5) 07/12/18 20:50 Urine WBC >100 /hpf (0-5) H 07/12/18 20:50 Ur Epithelial Cells MODERATE /lpf (FEW) 07/12/18 20:50 Urine Bacteria MANY /hpf (NONE SEEN) H 07/12/18 20:50 Amikacin Peak 16.9 ug/mL (20.0-30.0) L 07/19/18 10:15 Amikacin Trough 5.5 ug/mL (1.0-8.0) 07/18/18 18:30 Random Vancomycin 20.7 ug/mL (5.0-40.0) 07/20/18 04:45 - Physical Exam Vitals and I&O: Vital Signs Temp 98.1 F 07/21/18 20:00 Pulse 99 07/21/18 20:00 Resp 18 07/21/18 20:00 BP 118/54 07/21/18 20:00 Pulse Ox 100 07/21/18 20:00 Intake & Output 07/21/18 07/21/18 07/22/18 06:59 18:59 06:59 Intake Total 320 600 Output Total 3550 40 Balance -3230 560 Weight (lbs) 112.037 kg 112.037 kg Intake: Intake, IV Amount 100 100 Tigecycline 50 mg In 100 100 Sodium Chloride 0.9% 100 ml @ 100 mls/hr IV Q12HR [facility] Rx#:[id number] Oral 120 500 Other 100 Output: Urine 50 40 Hemodialysis 3500 Other: # Bowel Movements 1 0 Stool Characteristics Soft Soft Soft Formed Brown Brown Brown Weight Source Bedscale Bedscale Active Medications: Current Medications Acetaminophen (Tylenol) 650 mg PO Q6H PRN PRN Reason: Pain or Fever >101 Stop: 09/11/18 15:14 Albuterol/Ipratropium (Duoneb Neb) 3 ml HHN Q4HRT PRN PRN Reason: Shortness of Breath or Wheeze Stop: 09/11/18 15:14 Ascorbic Acid (Vitamin C) 500 mg PO DAILY [facility] Stop: 09/12/18 08:59 Last Admin: 07/21/18 09:23 Dose: 500 mg Atorvastatin Calcium (Lipitor) 20 mg PO HS [facility] Stop: 09/11/18 20:59 Last Admin: 07/21/18 20:38 Dose: 20 mg [place] Oil/[place] Balsam/Trypsin (Venelex) 1 appl TP DAILY [facility] Stop: 09/13/18 08:59 Last Admin: 07/21/18 09:24 Dose: 1 appl Dextrose (Glutose 40%) 18.75 gm PO PRN PRN PRN Reason: Blood Glucose less than 70 Stop: 09/11/18 04:10 Docusate Sodium (Colace) 100 mg PO BID [facility] Stop: 09/11/18 16:59 Last Admin: 07/21/18 16:09 Dose: 100 mg Famotidine (Pepcid) 20 mg PO DAILY [facility] Stop: 09/12/18 08:59 Last Admin: 07/21/18 09:23 Dose: 20 mg Folic Acid (Folate) 1 mg PO DAILY [facility] Stop: 09/12/18 08:59 Last Admin: 07/21/18 09:23 Dose: 1 mg Glucagon (Glucagen) 1 mg IM PRN PRN PRN Reason: Blood Glucose less than 70 Stop: 09/11/18 04:10 Heparin Sodium (Porcine) (Heparin) 5,000 units SUBQ Q12HR [facility] Stop: 09/17/18 20:59 Last Admin: 07/21/18 21:06 Dose: Not Given Tigecycline 50 mg/ Sodium (Chloride) 100 mls @ 100 mls/hr IV Q12HR [facility] Stop: 07/26/18 08:59 Last Admin: 07/21/18 20:38 Dose: 100 mls/hr Insulin Aspart (Novolog Insulin Sliding Scale) 0 units SUBQ Q6HR [facility]; Protocol Stop: 09/11/18 05:59 Last Admin: 07/21/18 17:15 Dose: Not Given Lactobacillus Rhamnosus (Culturelle 15b) 1 each PO DAILY [facility] Stop: 09/13/18 13:59 Last Admin: 07/21/18 09:23 Dose: 1 each Levothyroxine Sodium (Synthroid) 0.025 mg PO QDAC [facility] Stop: 09/12/18 07:29 Last Admin: 07/21/18 06:35 Dose: 0.025 mg Miscellaneous (Probiotic Screen) 1 ea PRN PRN PRN Reason: PROTOCOL Stop: 09/13/18 11:44 Miscellaneous (Amikacin Iv Per Pharmacy) 1 ea PRN PRN PRN Reason: PROTOCOL Stop: 09/13/18 18:08 Miscellaneous (Vancomycin Iv Per Pharmacy) 1 ea MC PRN [facility] Stop: 09/14/18 18:59 Oxcarbazepine (Trileptal) 600 mg PO BID [facility] Stop: 09/11/18 16:59 Last Admin: 07/21/18 16:09 Dose: 600 mg Risperidone (Risperdal) 2 mg PO HS [facility] Stop: 09/11/18 20:59 Last Admin: 07/21/18 20:38 Dose: 2 mg Senna (Senna) 17.2 mg PO BID [facility] Stop: 09/11/18 16:59 Last Admin: 07/21/18 16:09 Dose: 17.2 mg Sevelamer Carbonate (Renvela) 800 mg PO TIDWM [facility] Stop: 09/11/18 16:59 Last Admin: 07/21/18 16:09 Dose: 800 mg Vitamin B Complex/Vit C/Folic Acid (Vitamin B Complex W/Vitamin C) 1 tab PO DAILY [facility] Stop: 09/12/18 08:59 Last Admin: 07/21/18 09:23 Dose: 1 tab Zinc Sulfate (Zinc Sulfate) 220 mg PO DAILY [facility] Stop: 09/12/18 08:59 Last Admin: 07/21/18 09:22 Dose: 220 mg General: no acute distress, well developed, well nourished HEENT: atraumatic, normocephalic Neck: supple, no thyromegaly Cardiovascular: S1S2, regular Lungs: clear to auscultation bilaterally, clear to percussion Abdomen: soft, no tender, no distended Extremities: no cyanosis, no clubbing, no edema Neurological: awake, alert, oriented Infectious Disease Assmt/Plan - Assessment Assessment: 1. UTI 2. Staph CN in blood contaminant. 3. Hypoglycemia. 4. Diabetes mellitus type 1 with episodes of hypoglycemia. 5. Hypertension. 6. Anemia of chronic disease. 7. Coronary artery disease, 8. CHF.. 9. Anasarca 10. 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 11. sacral stage 4 wound. - Plan Plan: Continue amikacin and tygacil. wound care. Nutritional Asmnt/Malnutr-PDOC - Dietary Evaluation Malnutrition Findings (Please click <Entered> for more info): Nutritional Asmnt/Malnutrition Start: 07/13/18 13: 54 Text: Status: Complete Freq: Protocol: Document 07/13/18 13:56 ALDAIR (Rec: 07/13/18 14:10 ALDAIR NASH- FNS1) Nutritional Asmnt/Malnutrition Patient General Information Nutritional Screening Consult Diagnosis ESRD, anasarca Pertinent Medical Hx/Surgical Hx Seizure, hep C, diabetes, CAD, HTN, CVA, quadreplegia, Parkinsons, ESRD Subjective Information Consult received for "Diabetic ". Per nursing notes, patient receives hemodialysis MWF and patient is non-verbal. Patient with 2+ pitting edema. Current Diet Order/ Nutrition Support Renal diet Patient / S.O Not Indicated Pertinent Medications D50W, D5-0.45NS @50 ml/hr, Glucagon, Novolog Pertinent Labs (07/13) Na 134, BUN 48, Cr 2.9, glucose 41-137, Ca 8.2, BNP 515, albumin 2 Nutritional Hx/Data Height 1.73 m Height (Calculated Centimeters) 172.7 Current Weight (lbs) 113.852 kg Weight (Calculated Kilograms) 113.9 Weight (Calculated Grams) 301926.7 [place] Body Weight 140 % [place] Body Weight 179 Body Mass Index (BMI) 38.1 Recent Weight Change No Weight Status Morbidly Obese GI Symptoms GI Symptoms None Last BM 07/13 x 1 Difficult in: Chewing Food Allergies No Cultural/Ethnic/Confucianist Belief none indicated Usual diet at home unknown Skin Integrity/Comment: Arian 10, ulceration on sacrum, left lower leg, abrasion on L heel, scar on right leg. Current %PO Good (75-100%) Estimated Nutritional Goals BEE in Kcals: Adj wt of IBW Calories/Kcals/Kg 27-32 kcal/kg (using 76.2kg ADj wt) Kcals Calculated ~4574-3052 kcal/day Protein g/k.2-1.5 gm/kg using Adj wt Protein Calculated ~90-115 gm/day Fluid: ml Per MD due to HD Nutritional Problem 2. Problem Problem Altered nutrition related lab values related to Etiology episodes of hypoglycemia, electrolyte imbalance aeb Signs/Symptoms: Na 134, glucose 41-137, Ca 8.2 1. Problem Problem Increased nutrient needs related to Etiology hypermetabolic state, impaired skin integrity aeb Signs/Symptoms: Pt on Hemodialysis and with multiple ulcerations Intervention/Recommendation Comments 1. Continue Renal diet as tolerated by patient. No need for DM restriction at this time due to hypoglycemia. 2. Consider fluid restriction due to HD, hyponatremia and edema. 3. Consider adding Prosource 1 packet with each meal for an additional 45gm protein. Expected Outcomes/Goals Expected Outcomes/Goals Oral intake >75% of meals, weight stable or trend toward ideal body weight, nutrition related labs WNL
[2018-07-22] MEDS: INSULIN ASPART SLIDING SCALE 100 UNITS/ML UNIT SUBQ SCH ×3 (05:51→18:39)
[2018-07-22 06:57] LABS: % BASOPHILS 0.2 % (0.0-2.0); % LYMPHOCYTES 45.6 % (20.0-50.0); % MONOCYTES 13.8 % (2.0-10.0); % NEUTROPHILS 40.4 % (40.0-80.0); HEMATOCRIT 29.2 % (41.0-60); HEMOGLOBIN 9.7 gm/dL (12-16); LYMPHOCYTE ABSOLUTE 2.9 Th/cmm (1.5-3.0); MEAN CELL VOLUME 87.9 fl (81-100); MEAN CORPUSCULAR HEMOGLOBIN 29.1 pg (27.0-31.0); MEAN CORPUSCULAR HGB CONC 33.2 pg (28.0-36.0); MEAN PLATELET VOLUME 7.4 fl; MONOCYTE ABSOLUTE 0.9 Th/cmm (0.3-1.0); NEUTROPHILE ABSOLUTE 2.6 Th/cmm (1.8-8.0); PLATELET COUNT 119 Th/cmm (150-400); RED BLOOD COUNT 3.32 Mil/cmm (3.80-5.10); RED CELL DISTRIBUTION WIDTH 16.8 % (11.5-20.0); WHITE BLOOD COUNT 6.4 Th/cmm (4.8-10.8)
[2018-07-22 07:06] LABS: INR 3.15 (0.5-1.4)
[2018-07-22] MEDS: Levothyroxine 0.025 Mg Tab PO SCH (07:06)
[2018-07-22] MEDS: Docusate Sodium 100 mg/10 mL UD PO SCH ×2 (08:50→18:39)
[2018-07-22] MEDS: Lactobacillus Rhamnosus GG 15 Billion CFU CAP.SPRINK PO SCH (08:51)
[2018-07-22] MEDS: Vitamin B Complex w/Vitamin C Tab PO SCH (08:51)
[2018-07-22] MEDS: Venelex 60gm Tube TP SCH (08:55)
--- NOTE | 2018-07-22 10:40 | Diagnostic Imaging Report ---
Portable chest x-ray HISTORY: Shortness of breath Compared with prior exam of July 19, 2018, the heart is enlarged. Persistent bilateral pleural effusions. Findings may be associated with congestive heart failure. Clinical correlation is needed. IMPRESSION: 1. Persistent cardiomegaly with bilateral pleural effusions. The findings may be associated with congestive heart failure. Clinical correlation is needed.
[2018-07-22] MEDS ORDERED: SODIUM CHLORIDE 0.9% IV ONE (11:00)
[2018-07-22] MEDS ORDERED: VANCOMYCIN HCL IV ONE (11:00)
--- NOTE | 2018-07-22 12:15 | General Progress Note ---
Subjective - Review of Systems Events since last encounter: no fever no distress Objective - Results Result Diagrams: 07/22/18 05:55 07/21/18 05:00 Recent Labs: Laboratory Last Values WBC 6.4 Th/cmm (4.8-10.8) 07/22/18 05:55 RBC 3.32 Mil/cmm (3.80-5.10) L 07/22/18 05:55 Hgb 9.7 gm/dL (12-16) L 07/22/18 05:55 Hct 29.2 % (41.0-60) L 07/22/18 05:55 MCV 87.9 fl (81-100) 07/22/18 05:55 MCH 29.1 pg (27.0-31.0) 07/22/18 05:55 MCHC Differential 33.2 pg (28.0-36.0) 07/22/18 05:55 RDW 16.8 % (11.5-20.0) 07/22/18 05:55 Plt Count 119 Th/cmm (150-400) L 07/22/18 05:55 MPV 7.4 fl 07/22/18 05:55 Add Manual Diff YES 07/18/18 09:02 Neutrophils % 40.4 % (40.0-80.0) 07/22/18 05:55 Band Neutrophils % 1 % (0-10) 07/18/18 09:02 Lymphocytes % 45.6 % (20.0-50.0) 07/22/18 05:55 Monocytes % 13.8 % (2.0-10.0) H 07/22/18 05:55 Eosinophils % 0.0 % (0.0-5.0) 07/22/18 05:55 Basophils % 0.2 % (0.0-2.0) 07/22/18 05:55 Neutrophils (Manual) 52 % (40-80) 07/18/18 09:02 Lymphocytes 36 % (20-50) 07/18/18 09:02 Monocytes 11 % (2-10) H 07/18/18 09:02 Eosinophils 0 % (0-5) 07/18/18 09:02 Basophils 0 % (0-3) 07/18/18 09:02 Platelet Estimate DECREASED PLATELETS (NORMAL) 07/18/18 09:02 PT 31.0 SECONDS (9.5-11.5) H 07/22/18 05:55 INR 3.15 (0.5-1.4) H 07/22/18 05:55 PTT (Actin FS) 43.0 SECONDS (26.0-38.0) H 07/20/18 08:08 Sodium 139 mEq/L (136-145) 07/21/18 05:00 Potassium 3.6 mEq/L (3.5-5.1) 07/21/18 05:00 Chloride 105 mEq/L (98-107) 07/21/18 05:00 Carbon Dioxide 27.8 mEq/L (21.0-31.0) 07/21/18 05:00 Anion Gap 9.8 (7.0-16.0) 07/21/18 05:00 BUN 11 mg/dL (7-25) 07/21/18 05:00 Creatinine 2.3 mg/dL (0.6-1.2) H 07/21/18 05:00 Est GFR ( Amer) 29.0 ml/min (>90) 07/21/18 05:00 Est GFR (Non-Af Amer) 24.0 ml/min 07/21/18 05:00 BUN/Creatinine Ratio 4.8 07/21/18 05:00 Glucose 139 mg/dL (70-105) H 07/21/18 05:00 POC Glucose 96 MG/DL (70 - 105) 07/22/18 11:50 Whole Bld Lactic Acid 1.29 mmol/L (0.60-1.99) 07/12/18 20:50 Calcium 8.1 mg/dL (8.6-10.3) L 07/21/18 05:00 Magnesium 1.6 mg/dL (1.9-2.7) L 07/21/18 05:00 Total Bilirubin 0.3 mg/dL (0.3-1.0) 07/18/18 05:20 AST 18 U/L (13-39) 07/18/18 05:20 ALT 7 U/L (7-52) 07/18/18 05:20 Alkaline Phosphatase 80 U/L (34-104) 07/18/18 05:20 Creatine Kinase 20 U/L (30-223) L 09/02/18 20:50 Troponin I 0.49 ng/mL (0.01-0.05) H* 07/13/18 15:20 B-Natriuretic Peptide 515.0 pg/mL (5.0-100.0) H 07/13/18 04:00 Total Protein 4.0 gm/dL (6.0-8.3) L 07/18/18 05:20 Albumin < 1.5 gm/dL (3.7-5.3) L 07/18/18 05:20 Globulin 2.5 gm/dL 07/18/18 05:20 Albumin/Globulin Ratio 0.6 (1.0-1.8) L 07/18/18 05:20 Triglycerides 53 mg/dL (<150) 07/13/18 04:00 Cholesterol 41 mg/dL (<200) 07/13/18 04:00 LDL Cholesterol Direct 11 mg/dL (75-193) L 07/13/18 04:00 HDL Cholesterol 24 mg/dL (23-92) 07/13/18 04:00 TSH 1.21 uIU/ml (0.34-5.60) 07/13/18 04:00 Urine Source SANC[place] 07/12/18 20:50 Urine Color YELLOW 07/12/18 20:50 Urine Clarity CLOUDY (CLEAR) H 07/12/18 20:50 Urine pH 8.5 (4.6 - 8.0) 07/12/18 20:50 Ur Specific [place] 1.015 (1.005-1.030) 07/12/18 20:50 Urine Protein 100 mg/dL (NEGATIVE) H 07/12/18 20:50 Urine Glucose (UA) NEGATIVE mg/dL (NEGATIVE) 07/12/18 20:50 Urine Ketones NEGATIVE mg/dL (NEGATIVE) 07/12/18 20:50 Urine Blood TRACE (NEGATIVE) 07/12/18 20:50 Urine Nitrate NEGATIVE (NEGATIVE) 07/12/18 20:50 Urine Bilirubin NEGATIVE (NEGATIVE) 07/12/18 20:50 Urine Urobilinogen 0.2 E.U./dL (0.2 - 1.0) 07/12/18 20:50 Ur Leukocyte Esterase LARGE (NEGATIVE) H 07/12/18 20:50 Urine RBC 2-5 /hpf (0-5) 07/12/18 20:50 Urine WBC >100 /hpf (0-5) H 07/12/18 20:50 Ur Epithelial Cells MODERATE /lpf (FEW) 07/12/18 20:50 Urine Bacteria MANY /hpf (NONE SEEN) H 07/12/18 20:50 Amikacin Peak 16.9 ug/mL (20.0-30.0) L 07/19/18 10:15 Amikacin Trough 5.5 ug/mL (1.0-8.0) 07/18/18 18:30 Random Vancomycin 21.5 ug/mL (5.0-40.0) 07/22/18 05:55 - Physical Exam Vitals and I&O: Vital Signs Temp 98.3 F 07/22/18 11:46 Pulse 83 07/22/18 11:46 Resp 18 07/22/18 11:46 BP 121/61 07/22/18 11:46 Pulse Ox 100 07/22/18 11:46 Intake & Output 07/21/18 07/22/18 07/22/18 18:59 06:59 18:59 Intake Total 600 280 Output Total 40 3000 Balance 560 -2720 Weight (lbs) 112.037 kg 107.728 kg Intake: Intake, IV Amount 100 100 Tigecycline 50 mg In 100 100 Sodium Chloride 0.9% 100 ml @ 100 mls/hr IV Q12HR [facility] Rx#:[id number] Oral 500 180 Output: Urine 40 0 Hemodialysis 3000 Other: # Bowel Movements 0 2 Stool Characteristics Soft Soft Soft Brown Formed Formed Brown Brown Weight Source Bedscale Bedscale Active Medications: Current Medications Acetaminophen (Tylenol) 650 mg PO Q6H PRN PRN Reason: Pain or Fever >101 Stop: 09/11/18 15:14 Albuterol/Ipratropium (Duoneb Neb) 3 ml HHN Q4HRT PRN PRN Reason: Shortness of Breath or Wheeze Stop: 09/11/18 15:14 Ascorbic Acid (Vitamin C) 500 mg PO DAILY [facility] Stop: 09/12/18 08:59 Last Admin: 07/22/18 08:50 Dose: Not Given Atorvastatin Calcium (Lipitor) 20 mg PO HS [facility] Stop: 09/11/18 20:59 Last Admin: 07/21/18 20:38 Dose: 20 mg [place] Oil/Swiss Balsam/Trypsin (Venelex) 1 appl TP DAILY [facility] Stop: 09/13/18 08:59 Last Admin: 07/22/18 08:55 Dose: 1 appl Dextrose (Glutose 40%) 18.75 gm PO PRN PRN PRN Reason: Blood Glucose less than 70 Stop: 09/11/18 04:10 Docusate Sodium (Colace) 100 mg PO BID [facility] Stop: 09/11/18 16:59 Last Admin: 07/22/18 08:50 Dose: Not Given Famotidine (Pepcid) 20 mg PO DAILY [facility] Stop: 09/12/18 08:59 Last Admin: 07/22/18 08:50 Dose: Not Given Folic Acid (Folate) 1 mg PO DAILY [facility] Stop: 09/12/18 08:59 Last Admin: 07/22/18 08:50 Dose: Not Given Glucagon (Glucagen) 1 mg IM PRN PRN PRN Reason: Blood Glucose less than 70 Stop: 09/11/18 04:10 Heparin Sodium (Porcine) (Heparin) 5,000 units SUBQ Q12HR [facility] Stop: 09/17/18 20:59 Last Admin: 07/22/18 08:52 Dose: Not Given Tigecycline 50 mg/ Sodium (Chloride) 100 mls @ 100 mls/hr IV Q12HR [facility] Stop: 07/26/18 08:59 Last Admin: 07/22/18 08:56 Dose: 100 mls/hr Vancomycin HCl 1.25 gm/ Sodium (Chloride) 400 mls @ 200 mls/hr IV ONCE ONE Stop: 07/22/18 12:59 Last Admin: 07/22/18 10:54 Dose: 200 mls/hr Insulin Aspart (Novolog Insulin Sliding Scale) 0 units SUBQ Q6HR [facility]; Protocol Stop: 09/11/18 05:59 Last Admin: 07/22/18 11:57 Dose: Not Given Lactobacillus Rhamnosus (Culturelle 15b) 1 each PO DAILY [facility] Stop: 09/13/18 13:59 Last Admin: 07/22/18 08:51 Dose: Not Given Levothyroxine Sodium (Synthroid) 0.025 mg PO QDAC [facility] Stop: 09/12/18 07:29 Last Admin: 07/22/18 07:06 Dose: Not Given Miscellaneous (Probiotic Screen) 1 ea [facility] PRN PRN PRN Reason: PROTOCOL Stop: 09/13/18 11:44 Miscellaneous (Amikacin Iv Per Pharmacy) 1 [facility] PRN PRN PRN Reason: PROTOCOL Stop: 09/13/18 18:08 Miscellaneous (Vancomycin Iv Per Pharmacy) 1 [facility] PRN [facility] Stop: 09/14/18 18:59 Oxcarbazepine (Trileptal) 600 mg PO BID [facility] Stop: 09/11/18 16:59 Last Admin: 07/22/18 08:51 Dose: Not Given Risperidone (Risperdal) 2 mg PO HS [facility] Stop: 09/11/18 20:59 Last Admin: 07/21/18 20:38 Dose: 2 mg Senna (Senna) 17.2 mg PO BID [facility] Stop: 09/11/18 16:59 Last Admin: 07/22/18 08:51 Dose: Not Given Sevelamer Carbonate (Renvela) 800 mg PO TIDWM [facility] Stop: 09/11/18 16:59 Last Admin: 07/22/18 11:14 Dose: Not Given Vitamin B Complex/Vit C/Folic Acid (Vitamin B Complex W/Vitamin C) 1 tab PO DAILY [facility] Stop: 09/12/18 08:59 Last Admin: 07/22/18 08:51 Dose: Not Given Zinc Sulfate (Zinc Sulfate) 220 mg PO DAILY [facility] Stop: 09/12/18 08:59 Last Admin: 07/22/18 08:51 Dose: Not Given General: Alert, Mild distress HEENT: Atraumatic, EOMI Neck: Supple, +2 carotid pulse wo bruit Cardiovascular: Regular rate, Normal S1, Normal S2 Lungs: Other (scattered rales) Abdomen: Bowel sounds, Soft Extremities: Edema ((+) 2-3 edema), Other ((+) 2 bipedal edema) Neurological: Sensation intact Skin: no Rash Psych/Mental Status: Mood NL Assessment/Plan - Problem List Patient Problems: All Active Problems Diabetes mellitus (Active) E11.9 Anasarca (Acute) R60.1 Anemia (Acute) D64.9 CAD (coronary artery disease) (Acute) I25.10 CHF (congestive heart failure) (Acute) I50.9 CKD (chronic kidney disease) (Acute) N18.9 HTN (hypertension) (Acute) I10 UTI (urinary tract infection) (Acute) sacral stage 4 wound (Acute) - Plan Plan: as per order sheet Nutritional Asmnt/Malnutr-PDOC - Dietary Evaluation Malnutrition Findings (Please click <Entered> for more info): Nutritional Asmnt/Malnutrition Start: 07/13/18 13: 54 Text: Status: Complete Freq: Protocol: Document 07/13/18 13:56 HUNTERMac (Rec: 07/13/18 14:10 ALDAIR SAAD- [id number]) Nutritional Asmnt/Malnutrition Patient General Information Nutritional Screening Consult Diagnosis ESRD, anasarca Pertinent Medical Hx/Surgical Hx Seizure, hep C, diabetes, CAD, HTN, CVA, quadreplegia, Parkinsons, ESRD Subjective Information Consult received for "Diabetic ". Per nursing notes, patient receives hemodialysis MWF and patient is non-verbal. Patient with 2+ pitting edema. Current Diet Order/ Nutrition Support Renal diet Patient / S.O Not Indicated Pertinent Medications D50W, D5-0.45NS @50 ml/hr, Glucagon, Novolog Pertinent Labs (07/13) Na 134, BUN 48, Cr 2.9, glucose 41-137, Ca 8.2, BNP 515, albumin 2 Nutritional Hx/Data Height 1.73 m Height (Calculated Centimeters) 172.7 Current Weight (lbs) 113.852 kg Weight (Calculated Kilograms) 113.9 Weight (Calculated Grams) 071155.7 [place] Body Weight 140 % [place] Body Weight 179 Body Mass Index (BMI) 38.1 Recent Weight Change No Weight Status Morbidly Obese GI Symptoms GI Symptoms None Last BM 07/13 x 1 Difficult in: Chewing Food Allergies No Cultural/Ethnic/Confucianism Belief none indicated Usual diet at home unknown Skin Integrity/Comment: Arian 10, ulceration on sacrum, left lower leg, abrasion on L heel, scar on right leg. Current %PO Good (75-100%) Estimated Nutritional Goals BEE in Kcals: Adj wt of IBW Calories/Kcals/Kg 27-32 kcal/kg (using 76.2kg ADj wt) Kcals Calculated ~0409-0890 kcal/day Protein g/k.2-1.5 gm/kg using Adj wt Protein Calculated ~90-115 gm/day Fluid: ml Per MD due to HD Nutritional Problem 2. Problem Problem Altered nutrition related lab values related to Etiology episodes of hypoglycemia, electrolyte imbalance aeb Signs/Symptoms: Na 134, glucose 41-137, Ca 8.2 1. Problem Problem Increased nutrient needs related to Etiology hypermetabolic state, impaired skin integrity aeb Signs/Symptoms: Pt on Hemodialysis and with multiple ulcerations Intervention/Recommendation Comments 1. Continue Renal diet as tolerated by patient. No need for DM restriction at this time due to hypoglycemia. 2. Consider fluid restriction due to HD, hyponatremia and edema. 3. Consider adding Prosource 1 packet with each meal for an additional 45gm protein. Expected Outcomes/Goals Expected Outcomes/Goals Oral intake >75% of meals, weight stable or trend toward ideal body weight, nutrition related labs WNL
--- NOTE | 2018-07-22 12:19 | Diagnostic Imaging Report ---
Radionuclide 3 phase bone scan, sacrum HISTORY: Cellulitis, question osteomyelitis 25.5 mCi technetium MDP was using the exam. Initial perfusion/bloodflow and subsequent blood pool and delayed images obtained. The exam is somewhat compromised and limited due to difficulty in patient positioning and mobility. No significant focal increased activity is noted on initial perfusion images over the sacral area. No significant abnormal focal increased bony activity identified on delayed images. IMPRESSION: 1. No definite scintigraphic evidence of osteomyelitis
--- NOTE | 2018-07-22 13:27 | General Progress Note ---
Subjective - Review of Systems Service Date: 07/22/18 Subjective: sleeping, min SOB Objective - Results Result Diagrams: 07/22/18 05:55 07/21/18 05:00 Recent Labs: Laboratory Last Values WBC 6.4 Th/cmm (4.8-10.8) 07/22/18 05:55 RBC 3.32 Mil/cmm (3.80-5.10) L 07/22/18 05:55 Hgb 9.7 gm/dL (12-16) L 07/22/18 05:55 Hct 29.2 % (41.0-60) L 07/22/18 05:55 MCV 87.9 fl (81-100) 07/22/18 05:55 MCH 29.1 pg (27.0-31.0) 07/22/18 05:55 MCHC Differential 33.2 pg (28.0-36.0) 07/22/18 05:55 RDW 16.8 % (11.5-20.0) 07/22/18 05:55 Plt Count 119 Th/cmm (150-400) L 07/22/18 05:55 MPV 7.4 fl 07/22/18 05:55 Add Manual Diff YES 07/18/18 09:02 Neutrophils % 40.4 % (40.0-80.0) 07/22/18 05:55 Band Neutrophils % 1 % (0-10) 07/18/18 09:02 Lymphocytes % 45.6 % (20.0-50.0) 07/22/18 05:55 Monocytes % 13.8 % (2.0-10.0) H 07/22/18 05:55 Eosinophils % 0.0 % (0.0-5.0) 07/22/18 05:55 Basophils % 0.2 % (0.0-2.0) 07/22/18 05:55 Neutrophils (Manual) 52 % (40-80) 07/18/18 09:02 Lymphocytes 36 % (20-50) 07/18/18 09:02 Monocytes 11 % (2-10) H 07/18/18 09:02 Eosinophils 0 % (0-5) 07/18/18 09:02 Basophils 0 % (0-3) 07/18/18 09:02 Platelet Estimate DECREASED PLATELETS (NORMAL) 07/18/18 09:02 PT 31.0 SECONDS (9.5-11.5) H 07/22/18 05:55 INR 3.15 (0.5-1.4) H 07/22/18 05:55 PTT (Actin FS) 43.0 SECONDS (26.0-38.0) H 07/20/18 08:08 Sodium 139 mEq/L (136-145) 07/21/18 05:00 Potassium 3.6 mEq/L (3.5-5.1) 07/21/18 05:00 Chloride 105 mEq/L (98-107) 07/21/18 05:00 Carbon Dioxide 27.8 mEq/L (21.0-31.0) 07/21/18 05:00 Anion Gap 9.8 (7.0-16.0) 07/21/18 05:00 BUN 11 mg/dL (7-25) 07/21/18 05:00 Creatinine 2.3 mg/dL (0.6-1.2) H 07/21/18 05:00 Est GFR ( Amer) 29.0 ml/min (>90) 07/21/18 05:00 Est GFR (Non-Af Amer) 24.0 ml/min 07/21/18 05:00 BUN/Creatinine Ratio 4.8 07/21/18 05:00 Glucose 139 mg/dL (70-105) H 07/21/18 05:00 POC Glucose 129 MG/DL (70 - 105) H 07/22/18 12:54 Whole Bld Lactic Acid 1.29 mmol/L (0.60-1.99) 07/12/18 20:50 Calcium 8.1 mg/dL (8.6-10.3) L 07/21/18 05:00 Magnesium 1.6 mg/dL (1.9-2.7) L 07/21/18 05:00 Total Bilirubin 0.3 mg/dL (0.3-1.0) 07/18/18 05:20 AST 18 U/L (13-39) 07/18/18 05:20 ALT 7 U/L (7-52) 07/18/18 05:20 Alkaline Phosphatase 80 U/L (34-104) 07/18/18 05:20 Creatine Kinase 20 U/L (30-223) L 07/12/18 20:50 Troponin I 0.49 ng/mL (0.01-0.05) H* 07/13/18 15:20 B-Natriuretic Peptide 515.0 pg/mL (5.0-100.0) H 07/13/18 04:00 Total Protein 4.0 gm/dL (6.0-8.3) L 07/18/18 05:20 Albumin < 1.5 gm/dL (3.7-5.3) L 07/18/18 05:20 Globulin 2.5 gm/dL 07/18/18 05:20 Albumin/Globulin Ratio 0.6 (1.0-1.8) L 07/18/18 05:20 Triglycerides 53 mg/dL (<150) 07/13/18 04:00 Cholesterol 41 mg/dL (<200) 07/13/18 04:00 LDL Cholesterol Direct 11 mg/dL (75-193) L 07/13/18 04:00 HDL Cholesterol 24 mg/dL (23-92) 07/13/18 04:00 TSH 1.21 uIU/ml (0.34-5.60) 07/13/18 04:00 Urine Source [place] 07/12/18 20:50 Urine Color YELLOW 07/12/18 20:50 Urine Clarity CLOUDY (CLEAR) H 07/12/18 20:50 Urine pH 8.5 (4.6 - 8.0) 07/12/18 20:50 Ur Specific [place] 1.015 (1.005-1.030) 07/12/18 20:50 Urine Protein 100 mg/dL (NEGATIVE) H 07/12/18 20:50 Urine Glucose (UA) NEGATIVE mg/dL (NEGATIVE) 07/12/18 20:50 Urine Ketones NEGATIVE mg/dL (NEGATIVE) 07/12/18 20:50 Urine Blood TRACE (NEGATIVE) 07/12/18 20:50 Urine Nitrate NEGATIVE (NEGATIVE) 07/12/18 20:50 Urine Bilirubin NEGATIVE (NEGATIVE) 07/12/18 20:50 Urine Urobilinogen 0.2 E.U./dL (0.2 - 1.0) 07/12/18 20:50 Ur Leukocyte Esterase LARGE (NEGATIVE) H 07/12/18 20:50 Urine RBC 2-5 /hpf (0-5) 07/12/18 20:50 Urine WBC >100 /hpf (0-5) H 07/12/18 20:50 Ur Epithelial Cells MODERATE /lpf (FEW) 07/12/18 20:50 Urine Bacteria MANY /hpf (NONE SEEN) H 07/12/18 20:50 Amikacin Peak 16.9 ug/mL (20.0-30.0) L 07/19/18 10:15 Amikacin Trough 5.5 ug/mL (1.0-8.0) 07/18/18 18:30 Random Vancomycin 21.5 ug/mL (5.0-40.0) 07/22/18 05:55 - Physical Exam Vitals and I&O: Vital Signs Temp 98.3 F 07/22/18 11:46 Pulse 83 07/22/18 11:46 Resp 18 07/22/18 11:46 BP 121/61 07/22/18 11:46 Pulse Ox 100 07/22/18 11:46 Intake & Output 07/21/18 07/22/18 07/22/18 18:59 06:59 18:59 Intake Total 600 280 Output Total 40 3000 Balance 560 -2720 Weight (lbs) 112.037 kg 107.728 kg Intake: Intake, IV Amount 100 100 Tigecycline 50 mg In 100 100 Sodium Chloride 0.9% 100 ml @ 100 mls/hr IV Q12HR [facility] Rx#:[id number] Oral 500 180 Output: Urine 40 0 Hemodialysis 3000 Other: # Bowel Movements 0 2 Stool Characteristics Soft Soft Soft Brown Formed Formed Brown Brown Weight Source Bedscale Bedscale Active Medications: Current Medications Acetaminophen (Tylenol) 650 mg PO Q6H PRN PRN Reason: Pain or Fever >101 Stop: 09/11/18 15:14 Albuterol/Ipratropium (Duoneb Neb) 3 ml HHN Q4HRT PRN PRN Reason: Shortness of Breath or Wheeze Stop: 09/11/18 15:14 Ascorbic Acid (Vitamin C) 500 mg PO DAILY [facility] Stop: 09/12/18 08:59 Last Admin: 07/22/18 08:50 Dose: Not Given Atorvastatin Calcium (Lipitor) 20 mg PO HS [facility] Stop: 09/11/18 20:59 Last Admin: 07/21/18 20:38 Dose: 20 mg [place] Oil/Tunisian Balsam/Trypsin (Venelex) 1 appl TP DAILY [facility] Stop: 09/13/18 08:59 Last Admin: 07/22/18 08:55 Dose: 1 appl Dextrose (Glutose 40%) 18.75 gm PO PRN PRN PRN Reason: Blood Glucose less than 70 Stop: 09/11/18 04:10 Docusate Sodium (Colace) 100 mg PO BID [facility] Stop: 09/11/18 16:59 Last Admin: 07/22/18 08:50 Dose: Not Given Famotidine (Pepcid) 20 mg PO DAILY [facility] Stop: 09/12/18 08:59 Last Admin: 07/22/18 08:50 Dose: Not Given Folic Acid (Folate) 1 mg PO DAILY [facility] Stop: 09/12/18 08:59 Last Admin: 07/22/18 08:50 Dose: Not Given Glucagon (Glucagen) 1 mg IM PRN PRN PRN Reason: Blood Glucose less than 70 Stop: 09/11/18 04:10 Heparin Sodium (Porcine) (Heparin) 5,000 units SUBQ Q12HR [facility] Stop: 09/17/18 20:59 Last Admin: 07/22/18 08:52 Dose: Not Given Tigecycline 50 mg/ Sodium (Chloride) 100 mls @ 100 mls/hr IV Q12HR [facility] Stop: 07/26/18 08:59 Last Admin: 07/22/18 08:56 Dose: 100 mls/hr Insulin Aspart (Novolog Insulin Sliding Scale) 0 units SUBQ Q6HR [facility]; Protocol Stop: 09/11/18 05:59 Last Admin: 07/22/18 11:57 Dose: Not Given Lactobacillus Rhamnosus (Culturelle 15b) 1 each PO DAILY [facility] Stop: 09/13/18 13:59 Last Admin: 07/22/18 08:51 Dose: Not Given Levothyroxine Sodium (Synthroid) 0.025 mg PO QDAC [facility] Stop: 09/12/18 07:29 Last Admin: 07/22/18 07:06 Dose: Not Given Miscellaneous (Probiotic Screen) 1 ea PRN PRN PRN Reason: PROTOCOL Stop: 09/13/18 11:44 Miscellaneous (Amikacin Iv Per Pharmacy) 1 ea PRN PRN PRN Reason: PROTOCOL Stop: 09/13/18 18:08 Miscellaneous (Vancomycin Iv Per Pharmacy) 1 ea MC PRN [facility] Stop: 09/14/18 18:59 Oxcarbazepine (Trileptal) 600 mg PO BID [facility] Stop: 09/11/18 16:59 Last Admin: 07/22/18 08:51 Dose: Not Given Risperidone (Risperdal) 2 mg PO HS [facility] Stop: 09/11/18 20:59 Last Admin: 07/21/18 20:38 Dose: 2 mg Senna (Senna) 17.2 mg PO BID [facility] Stop: 09/11/18 16:59 Last Admin: 07/22/18 08:51 Dose: Not Given Sevelamer Carbonate (Renvela) 800 mg PO TIDWM [facility] Stop: 09/11/18 16:59 Last Admin: 07/22/18 11:14 Dose: Not Given Vitamin B Complex/Vit C/Folic Acid (Vitamin B Complex W/Vitamin C) 1 tab PO DAILY [facility] Stop: 09/12/18 08:59 Last Admin: 07/22/18 08:51 Dose: Not Given Zinc Sulfate (Zinc Sulfate) 220 mg PO DAILY [facility] Stop: 09/12/18 08:59 Last Admin: 07/22/18 08:51 Dose: Not Given General: Alert, Mild distress HEENT: Atraumatic, EOMI Neck: Supple, +2 carotid pulse wo bruit Cardiovascular: Regular rate, Normal S1, Normal S2 Lungs: Other (scattered rales) Abdomen: Bowel sounds, Soft Extremities: Edema ((+) 2-3 edema), Other ((+) 2 bipedal edema) Neurological: Sensation intact Skin: no Rash Psych/Mental Status: Mood NL Assessment/Plan - Problem List Patient Problems: All Active Problems Diabetes mellitus (Active) E11.9 Anasarca (Acute) R60.1 Anemia (Acute) D64.9 CAD (coronary artery disease) (Acute) I25.10 CHF (congestive heart failure) (Acute) I50.9 CKD (chronic kidney disease) (Acute) N18.9 HTN (hypertension) (Acute) I10 UTI (urinary tract infection) (Acute) sacral stage 4 wound (Acute) - Assessment Assessment: ESRD on HD Hypothyroid Parkinson Ds. Fnc Quad Hep B,C GERD Left Calf ulcer Sacral Decub ulcer stage 4 Cholelithiasis B/L HAP w/ effusions Peripheral edema Left SFV DVT - Plan Plan: Lab - Result Diagrams 07/14/18 05:00 07/14/18 05:00 Current Medications Acetaminophen (Tylenol) 650 mg PO Q6H PRN PRN Reason: Pain or Fever >101 Stop: 09/11/18 15:14 Acetaminophen/Hydrocodone Bitart ([place]iley 5mg/325mg) 1 tab PO Q6H PRN PRN Reason: Pain (Severe) Stop: 09/11/18 15:14 Albuterol/Ipratropium (Duoneb Neb) 3 ml HHN Q4HRT PRN PRN Reason: Shortness of Breath or Wheeze Stop: 09/11/18 15:14 Ascorbic Acid (Vitamin C) 500 mg PO DAILY [facility] Stop: 09/12/18 08:59 Last Admin: 07/14/18 08:27 Dose: 500 mg Atorvastatin Calcium (Lipitor) 20 mg PO HS [facility] Stop: 09/11/18 20:59 Last Admin: 07/13/18 21:05 Dose: 20 mg Dextrose (D50w) 50 ml IVP PRN PRN PRN Reason: Blood Glucose less than 70 Stop: 09/11/18 04:10 Dextrose (Glutose 40%) 18.75 gm PO PRN PRN PRN Reason: Blood Glucose less than 70 Stop: 09/11/18 04:10 Docusate Sodium (Colace) 100 mg PO BID [facility] Stop: 09/11/18 16:59 Last Admin: 07/14/18 08:27 Dose: 100 mg Famotidine (Pepcid) 20 mg PO DAILY [facility] Stop: 09/12/18 08:59 Last Admin: 07/14/18 08:27 Dose: 20 mg Folic Acid (Folate) 1 mg PO DAILY [facility] Stop: 09/12/18 08:59 Last Admin: 07/14/18 08:27 Dose: 1 mg Glucagon (Glucagen) 1 mg IM PRN PRN PRN Reason: Blood Glucose less than 70 Stop: 09/11/18 04:10 Piperacillin Sod/Tazobactam (Sod 2.25 gm/ Sodium Chloride) 50 mls @ 100 mls/hr IV Q6H [facility] Stop: 09/11/18 05:59 Last Admin: 07/14/18 06:05 Dose: Not Given Dextrose/Sodium Chloride (D5-0.45ns) 1,000 mls @ 50 mls/hr IV .Q20H [facility] Stop: 09/11/18 02:29 Last Admin: 07/13/18 04:03 Dose: 50 mls/hr Insulin Aspart (Novolog Insulin Sliding Scale) 0 units SUBQ Q6HR [facility]; Protocol Stop: 09/11/18 05:59 Last Admin: 07/14/18 06:05 Dose: Not Given Levothyroxine Sodium (Synthroid) 0.025 mg PO QDAC [facility] Stop: 09/12/18 07:29 Last Admin: 07/14/18 06:35 Dose: 0.025 mg Miscellaneous (Vancomycin Iv Per Pharmacy) 1 ea PRN PRN PRN Reason: PROTOCOL Stop: 09/10/18 23:40 Oxcarbazepine (Trileptal) 600 mg PO BID [facility] Stop: 09/11/18 16:59 Last Admin: 07/14/18 08:27 Dose: 600 mg Risperidone (Risperdal) 2 mg PO HS [facility] Stop: 09/11/18 20:59 Last Admin: 07/13/18 21:05 Dose: 2 mg Senna (Senna) 17.2 mg PO BID [facility] Stop: 09/11/18 16:59 Last Admin: 07/14/18 08:27 Dose: 17.2 mg Sevelamer Carbonate (Renvela) 800 mg PO TIDWM [facility] Stop: 09/11/18 16:59 Last Admin: 07/14/18 08:27 Dose: 800 mg Temazepam (Restoril) 15 mg PO HS PRN; Protocol PRN Reason: Insomnia Stop: 09/11/18 15:14 Vitamin B Complex/Vit C/Folic Acid (Vitamin B Complex W/Vitamin C) 1 tab PO DAILY [facility] Stop: 09/12/18 08:59 Last Admin: 07/14/18 08:27 Dose: 1 tab Zinc Sulfate (Zinc Sulfate) 220 mg PO DAILY [facility] Stop: 09/12/18 08:59 Last Admin: 07/14/18 08:27 Dose: 220 mg Lab - Result Diagrams 07/21/18 05:00 07/21/18 05:00 Cr. more elevated w/ peripheral edema continue wound care Pt. will need diverting colostomy to avoid irritation & promote healing of stage 4 sacral decubitus ulcer CXR still w/ persistent CHF, congestion: f/u CXR schedule for HD again tomorrow hold Coumadin for possible surgery today Nutritional Asmnt/Malnutr-PDOC - Dietary Evaluation Malnutrition Findings (Please click <Entered> for more info): Nutritional Asmnt/Malnutrition Start: 07/13/18 13: 54 Text: Status: Complete Freq: Protocol: Document 07/13/18 13:56 MMERIN (Rec: 07/13/18 14:10 MMERIN [id number]) Nutritional Asmnt/Malnutrition Patient General Information Nutritional Screening Consult Diagnosis ESRD, anasarca Pertinent Medical Hx/Surgical Hx Seizure, hep C, diabetes, CAD, HTN, CVA, quadreplegia, Parkinsons, ESRD Subjective Information Consult received for "Diabetic ". Per nursing notes, patient receives hemodialysis MWF and patient is non-verbal. Patient with 2+ pitting edema. Current Diet Order/ Nutrition Support Renal diet Patient / S.O Not Indicated Pertinent Medications D50W, D5-0.45NS @50 ml/hr, Glucagon, Novolog Pertinent Labs (07/13) Na 134, BUN 48, Cr 2.9, glucose 41-137, Ca 8.2, BNP 515, albumin 2 Nutritional Hx/Data Height 1.73 m Height (Calculated Centimeters) 172.7 Current Weight (lbs) 113.852 kg Weight (Calculated Kilograms) 113.9 Weight (Calculated Grams) 663901.7 Corry Body Weight 140 % Corry Body Weight 179 Body Mass Index (BMI) 38.1 Recent Weight Change No Weight Status Morbidly Obese GI Symptoms GI Symptoms None Last BM 07/13 x 1 Difficult in: Chewing Food Allergies No Cultural/Ethnic/[employer]y[place]eterian Belief none indicated Usual diet at home unknown Skin Integrity/Comment: Arian 10, ulceration on sacrum, left lower leg, abrasion on L heel, scar on right leg. Current %PO Good (75-100%) Estimated Nutritional Goals BEE in Kcals: Adj wt of IBW Calories/Kcals/Kg 27-32 kcal/kg (using 76.2kg ADj wt) Kcals Calculated ~4499-5185 kcal/day Protein g/k.2-1.5 gm/kg using Adj wt Protein Calculated ~90-115 gm/day Fluid: ml Per MD due to HD Nutritional Problem 2. Problem Problem Altered nutrition related lab values related to Etiology episodes of hypoglycemia, electrolyte imbalance aeb Signs/Symptoms: Na 134, glucose 41-137, Ca 8.2 1. Problem Problem Increased nutrient needs related to Etiology hypermetabolic state, impaired skin integrity aeb Signs/Symptoms: Pt on Hemodialysis and with multiple ulcerations Intervention/Recommendation Comments 1. Continue Renal diet as tolerated by patient. No need for DM restriction at this time due to hypoglycemia. 2. Consider fluid restriction due to HD, hyponatremia and edema. 3. Consider adding Prosource 1 packet with each meal for an additional 45gm protein. Expected Outcomes/Goals Expected Outcomes/Goals Oral intake >75% of meals, weight stable or trend toward ideal body weight, nutrition related labs WNL
[2018-07-22] MEDS ORDERED: fentaNYL Citrate 100 mcg/2mL Vial ONE (15:06)
[2018-07-22] MEDS ORDERED: Neostigmine 10mg/10mL Vial ONE (15:07)
[2018-07-22] MEDS ORDERED: Propofol **SURGERY USE ONLY** 20 ML IV ONE (15:07)
[2018-07-22] MEDS ORDERED: Venelex 60gm Tube TP ONE (16:40)
[2018-07-22] MEDS ORDERED: Meperidine 50 mg/mL 1mL Syr ONE ×2 (16:47→16:48)
--- NOTE | 2018-07-22 17:45 | Operative Report ---
DATE OF SURGERY: 07/22/2018 PREOPERATIVE DIAGNOSES: 1. Stage IV huge sacral decubitus ulcer, size 15 x 10 cm depth to the bone. 2. Left lateral leg ulcer, size 8 x 20 cm depth to the muscles. 3. Incontinence. 4. End-stage renal dialysis, on hemodialysis. 5. Parkinson's disease. 6. Functional quadriplegia. 7. Hepatitis C. POSTOPERATIVE DIAGNOSES: 1. Stage IV huge sacral decubitus ulcer, size 15 x 10 cm depth to the bone. 2. Left lateral leg ulcer, size 8 x 20 cm depth to the muscles. 3. Incontinence. 4. End-stage renal dialysis, on hemodialysis. 5. Parkinson's disease. 6. Functional quadriplegia. 7. Hepatitis C. OPERATION DONE: 1. Diverting colostomy. 2. Partial colectomy. 3. Excisional debridement of sacral decubitus ulcer with application of wound VAC. 4. Excisional debridement of the left leg ulcer. SURGEON: Luzmaria. ANESTHESIA: General anesthesia. ANESTHESIOLOGIST: Dr. Mata. MARKETING ADMINISTRATOR: Dr. Villalba. ESTIMATED BLOOD LOSS: 30 mL. INDICATIONS FOR SURGERY: The patient with huge sacral decubitus ulcer, previously debrided at the [facility] about 3 weeks ago. The patient needs diverting colostomy because of persistent effluent of stool into the ulcer. DESCRIPTION OF PROCEDURE: The patient was given general anesthesia. The abdomen was prepped with ChloraPrep and draped in appropriate manner. A midline incision was made below the umbilicus. Bleeders were coagulated. The abdominal cavity was entered. The exploration was carried out. The descending colon was markedly elongated and because of this, it was decided to remove about a foot of the sigmoid colon to prevent chronic constipation. The distal sigmoid was transected with the GI instrument and the staple line was closed with running suture of 3-0 silk. Approximately a foot of large bowel was then removed with the use of an impact device and another SANTIAGO instrument was used to transect the descending colon, it was brought out as end diverting colostomy in the left lower quadrant of the abdomen. A piece of skin was excised all the way to subcutaneous tissues and the fascia was divided vertically. The end of the descending colon was brought out as a colostomy through the incision. Under the abdominal wall, the descending colon was sutured to the anterior abdominal wall utilizing interrupted sutures of 3-0 silk including closure of the mesentery to prevent internal herniation. The abdominal incision was closed with running suture of #1 PDS. The subcutaneous tissue closed with a running suture of 3-0 Vicryl and the skin was closed with 4-0 Vicryl subcuticularly. Sterile dressing was placed over this. The colostomy was matured utilizing everting suture of 4-0 Vicryl. Colostomy bag was placed over this. The patient was then turned on the right lateral decubitus position. A photograph was taken of the toe ulcers. Debridement was carried out minimally because there was a fairly good granulation tissue present including that directly over the sacral bone. A silver sponge was then applied and connected to wound VAC. The left leg ulcer was debrided and Venelex was applied, Xeroform, 4 x 4 and a Con wrap. The patient tolerated the procedure well. JOB# [id number] ORQUIDEA
[2018-07-22] MEDS ORDERED: Meperidine 25 mg/mL 1mL Syr IVP PRN (17:50)
[2018-07-22] MEDS: Atorvastatin Calcium 10 MG TAB PO SCH (20:01)
[2018-07-22] MEDS: D5-0.9%NS 1,000 ML IV SCH (20:30)
[2018-07-22] MEDS: HYDROmorphone 1 mg/mL 1mL Syr IVP PRN (20:37)
[2018-07-23] MEDS: INSULIN ASPART SLIDING SCALE 100 UNITS/ML UNIT SUBQ SCH ×4 (01:01→18:42)
--- NOTE | 2018-07-23 02:22 | Infectious Disease Prog Note ---
Infectious Disease Subjective - Review of Systems Service Date: 07/23/18 Subjective: Debridement of sacral wound and diverting colostomy were performed. Intubated orally, post op. no fever./ Infectious Disease Objective - Results Result Diagrams: 07/22/18 05:55 07/21/18 05:00 Recent Labs: Laboratory Last Values WBC 6.4 Th/cmm (4.8-10.8) 07/22/18 05:55 RBC 3.32 Mil/cmm (3.80-5.10) L 07/22/18 05:55 Hgb 9.7 gm/dL (12-16) L 07/22/18 05:55 Hct 29.2 % (41.0-60) L 07/22/18 05:55 MCV 87.9 fl (81-100) 07/22/18 05:55 MCH 29.1 pg (27.0-31.0) 07/22/18 05:55 MCHC Differential 33.2 pg (28.0-36.0) 07/22/18 05:55 RDW 16.8 % (11.5-20.0) 07/22/18 05:55 Plt Count 119 Th/cmm (150-400) L 07/22/18 05:55 MPV 7.4 fl 07/22/18 05:55 Add Manual Diff YES 07/18/18 09:02 Neutrophils % 40.4 % (40.0-80.0) 07/22/18 05:55 Band Neutrophils % 1 % (0-10) 07/18/18 09:02 Lymphocytes % 45.6 % (20.0-50.0) 07/22/18 05:55 Monocytes % 13.8 % (2.0-10.0) H 07/22/18 05:55 Eosinophils % 0.0 % (0.0-5.0) 07/22/18 05:55 Basophils % 0.2 % (0.0-2.0) 07/22/18 05:55 Neutrophils (Manual) 52 % (40-80) 07/18/18 09:02 Lymphocytes 36 % (20-50) 07/18/18 09:02 Monocytes 11 % (2-10) H 07/18/18 09:02 Eosinophils 0 % (0-5) 07/18/18 09:02 Basophils 0 % (0-3) 07/18/18 09:02 Platelet Estimate DECREASED PLATELETS (NORMAL) 07/18/18 09:02 PT 31.0 SECONDS (9.5-11.5) H 07/22/18 05:55 INR 3.15 (0.5-1.4) H 07/22/18 05:55 PTT (Actin FS) 43.0 SECONDS (26.0-38.0) H 07/20/18 08:08 Sodium 139 mEq/L (136-145) 07/21/18 05:00 Potassium 3.6 mEq/L (3.5-5.1) 07/21/18 05:00 Chloride 105 mEq/L (98-107) 07/21/18 05:00 Carbon Dioxide 27.8 mEq/L (21.0-31.0) 07/21/18 05:00 Anion Gap 9.8 (7.0-16.0) 07/21/18 05:00 BUN 11 mg/dL (7-25) 07/21/18 05:00 Creatinine 2.3 mg/dL (0.6-1.2) H 07/21/18 05:00 Est GFR ( Amer) 29.0 ml/min (>90) 07/21/18 05:00 Est GFR (Non-Af Amer) 24.0 ml/min 07/21/18 05:00 BUN/Creatinine Ratio 4.8 07/21/18 05:00 Glucose 139 mg/dL (70-105) H 07/21/18 05:00 POC Glucose 128 MG/DL (70 - 105) H 07/22/18 18:12 Whole Bld Lactic Acid 1.29 mmol/L (0.60-1.99) 07/12/18 20:50 Calcium 8.1 mg/dL (8.6-10.3) L 07/21/18 05:00 Magnesium 1.6 mg/dL (1.9-2.7) L 07/21/18 05:00 Total Bilirubin 0.3 mg/dL (0.3-1.0) 07/18/18 05:20 AST 18 U/L (13-39) 07/18/18 05:20 ALT 7 U/L (7-52) 07/18/18 05:20 Alkaline Phosphatase 80 U/L (34-104) 07/18/18 05:20 Creatine Kinase 20 U/L (30-223) L 07/12/18 20:50 Troponin I 0.49 ng/mL (0.01-0.05) H* 07/13/18 15:20 B-Natriuretic Peptide 515.0 pg/mL (5.0-100.0) H 07/13/18 04:00 Total Protein 4.0 gm/dL (6.0-8.3) L 07/18/18 05:20 Albumin < 1.5 gm/dL (3.7-5.3) L 07/18/18 05:20 Globulin 2.5 gm/dL 07/18/18 05:20 Albumin/Globulin Ratio 0.6 (1.0-1.8) L 07/18/18 05:20 Triglycerides 53 mg/dL (<150) 07/13/18 04:00 Cholesterol 41 mg/dL (<200) 07/13/18 04:00 LDL Cholesterol Direct 11 mg/dL (75-193) L 07/13/18 04:00 HDL Cholesterol 24 mg/dL (23-92) 07/13/18 04:00 TSH 1.21 uIU/ml (0.34-5.60) 07/13/18 04:00 Urine Source [place] 07/12/18 20:50 Urine Color YELLOW 07/12/18 20:50 Urine Clarity CLOUDY (CLEAR) H 07/12/18 20:50 Urine pH 8.5 (4.6 - 8.0) 07/12/18 20:50 Ur Specific [place] 1.015 (1.005-1.030) 07/12/18 20:50 Urine Protein 100 mg/dL (NEGATIVE) H 07/12/18 20:50 Urine Glucose (UA) NEGATIVE mg/dL (NEGATIVE) 07/12/18 20:50 Urine Ketones NEGATIVE mg/dL (NEGATIVE) 07/12/18 20:50 Urine Blood TRACE (NEGATIVE) 07/12/18 20:50 Urine Nitrate NEGATIVE (NEGATIVE) 07/12/18 20:50 Urine Bilirubin NEGATIVE (NEGATIVE) 07/12/18 20:50 Urine Urobilinogen 0.2 E.U./dL (0.2 - 1.0) 07/12/18 20:50 Ur Leukocyte Esterase LARGE (NEGATIVE) H 07/12/18 20:50 Urine RBC 2-5 /hpf (0-5) 07/12/18 20:50 Urine WBC >100 /hpf (0-5) H 07/12/18 20:50 Ur Epithelial Cells MODERATE /lpf (FEW) 07/12/18 20:50 Urine Bacteria MANY /hpf (NONE SEEN) H 07/12/18 20:50 Amikacin Peak 16.9 ug/mL (20.0-30.0) L 07/19/18 10:15 Amikacin Trough 5.5 ug/mL (1.0-8.0) 07/18/18 18:30 Random Vancomycin 21.5 ug/mL (5.0-40.0) 07/22/18 05:55 - Physical Exam Vitals and I&O: Vital Signs Temp 96.9 F 07/23/18 02:00 Pulse 106 07/23/18 02:00 Resp 12 07/23/18 02:00 BP 157/73 07/23/18 02:00 Pulse Ox 100 07/23/18 02:00 Intake & Output 07/22/18 07/22/18 07/23/18 06:59 18:59 06:59 Intake Total 280 100 100 Output Total 3000 Balance -2720 100 100 Weight (lbs) 107.728 kg Intake: Intake, IV Amount 100 100 100 Tigecycline 50 mg In 100 100 100 Sodium Chloride 0.9% 100 ml @ 100 mls/hr IV Q12HR [facility] Rx#:[id number] Oral 180 Output: Urine 0 Hemodialysis 3000 Other: # Bowel Movements 2 Stool Characteristics Soft Soft Formed Formed Brown Brown Weight Source Bedscale Active Medications: Current Medications Acetaminophen (Tylenol) 650 mg PO Q6H PRN PRN Reason: Pain or Fever >101 Stop: 09/11/18 15:14 Albuterol/Ipratropium (Duoneb Neb) 3 ml HHN Q4HRT PRN PRN Reason: Shortness of Breath or Wheeze Stop: 09/11/18 15:14 Ascorbic Acid (Vitamin C) 500 mg PO DAILY [facility] Stop: 09/12/18 08:59 Last Admin: 07/22/18 08:50 Dose: Not Given Atorvastatin Calcium (Lipitor) 20 mg PO [facility] Stop: 09/11/18 20:59 Last Admin: 07/22/18 20:01 Dose: Not Given [place] Oil/[place] Balsam/Trypsin (Venelex) 1 appl TP DAILY [facility] Stop: 09/13/18 08:59 Last Admin: 07/22/18 08:55 Dose: 1 appl Dextrose (Glutose 40%) 18.75 gm PO PRN PRN PRN Reason: Blood Glucose less than 70 Stop: 09/11/18 04:10 Docusate Sodium (Colace) 100 mg PO BID [facility] Stop: 09/11/18 16:59 Last Admin: 07/22/18 18:39 Dose: Not Given Famotidine (Pepcid) 20 mg PO DAILY [facility] Stop: 09/12/18 08:59 Last Admin: 07/22/18 08:50 Dose: Not Given Folic Acid (Folate) 1 mg PO DAILY [facility] Stop: 09/12/18 08:59 Last Admin: 07/22/18 08:50 Dose: Not Given Glucagon (Glucagen) 1 mg IM PRN PRN PRN Reason: Blood Glucose less than 70 Stop: 09/11/18 04:10 Heparin Sodium (Porcine) (Heparin) 5,000 units SUBQ Q12HR [facility] Stop: 09/17/18 20:59 Last Admin: 07/22/18 20:38 Dose: 5,000 units Hydromorphone HCl (Dilaudid) 1 mg IVP Q4HR PRN PRN Reason: Pain (Severe) Stop: 09/20/18 20:12 Last Admin: 07/22/18 20:37 Dose: 1 mg Tigecycline 50 mg/ Sodium (Chloride) 100 mls @ 100 mls/hr IV Q12HR [facility] Stop: 07/26/18 08:59 Last Infusion: 07/22/18 21:40 Dose: Infused Dextrose/Sodium Chloride (D5-0.9%Ns) 1,000 mls @ 100 mls/hr IV .Q10H [facility] Stop: 09/20/18 20:13 Insulin Aspart (Novolog Insulin Sliding Scale) 0 units SUBQ Q6HR [facility]; Protocol Stop: 09/11/18 05:59 Last Admin: 07/23/18 01:01 Dose: Not Given Lactobacillus Rhamnosus (Culturelle 15b) 1 each PO DAILY [facility] Stop: 09/13/18 13:59 Last Admin: 07/22/18 08:51 Dose: Not Given Levothyroxine Sodium (Synthroid) 0.025 mg PO QDAC [facility] Stop: 09/12/18 07:29 Last Admin: 07/22/18 07:06 Dose: Not Given Meperidine HCl (Demerol) 25 mg IVP Q10M PRN PRN Reason: Pain (Severe) Stop: 07/23/18 18:00 Miscellaneous (Probiotic Screen) 1 [facility] PRN PRN PRN Reason: PROTOCOL Stop: 09/13/18 11:44 Miscellaneous (Amikacin Iv Per Pharmacy) 1 [facility] PRN PRN PRN Reason: PROTOCOL Stop: 09/13/18 18:08 Miscellaneous (Vancomycin Iv Per Pharmacy) 1 [facility] PRN [facility] Stop: 09/14/18 18:59 Oxcarbazepine (Trileptal) 600 mg PO BID [facility] Stop: 09/11/18 16:59 Last Admin: 07/22/18 18:39 Dose: Not Given Risperidone (Risperdal) 2 mg PO HS [facility] Stop: 09/11/18 20:59 Last Admin: 07/22/18 20:01 Dose: Not Given Senna (Senna) 17.2 mg PO BID [facility] Stop: 09/11/18 16:59 Last Admin: 07/22/18 18:39 Dose: Not Given Sevelamer Carbonate (Renvela) 800 mg PO TIDWM [facility] Stop: 09/11/18 16:59 Last Admin: 07/22/18 18:39 Dose: Not Given Vitamin B Complex/Vit C/Folic Acid (Vitamin B Complex W/Vitamin C) 1 tab PO DAILY [facility] Stop: 09/12/18 08:59 Last Admin: 07/22/18 08:51 Dose: Not Given Zinc Sulfate (Zinc Sulfate) 220 mg PO DAILY [facility] Stop: 09/12/18 08:59 Last Admin: 07/22/18 08:51 Dose: Not Given General: no acute distress, well developed, well nourished HEENT: atraumatic, normocephalic, PERRLA Neck: supple, no thyromegaly Cardiovascular: S1S2, regular Lungs: clear to auscultation bilaterally, clear to percussion Abdomen: soft, other (colostomy.), no tender, no distended, no rebound Extremities: no cyanosis, no clubbing, no edema Neurological: awake, alert, oriented Skin: other (sacral wound) Infectious Disease Assmt/Plan - Problem List Patient Problems: All Active Problems Anasarca (Acute) R60.1 Anemia (Acute) D64.9 CAD (coronary artery disease) (Acute) I25.10 CHF (congestive heart failure) (Acute) I50.9 CKD (chronic kidney disease) (Acute) N18.9 HTN (hypertension) (Acute) I10 UTI (urinary tract infection) (Acute) sacral stage 4 wound (Acute) - Assessment Assessment: 1. UTI 2. Staph CN in blood contaminant. 3. Hypoglycemia. 4. Diabetes mellitus type 1 with episodes of hypoglycemia. 5. Hypertension. 6. Anemia of chronic disease. 7. Coronary artery disease, 8. CHF.. 9. Anasarca 10. 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 11. sacral stage 4 wound. No evidence of osteimyelitis, 12. S/p Diverting colostomy. - Plan Plan: Continue amikacin and tygacil for 7 days. wound care. Nutritional Asmnt/Malnutr-PDOC - Dietary Evaluation Malnutrition Findings (Please click <Entered> for more info): Nutritional Asmnt/Malnutrition Start: 07/13/18 13: 54 Text: Status: Complete Freq: Protocol: Document 07/13/18 13:56 ALDAIR (Rec: 07/13/18 14:10 MMERIN NASH- [id number]) Nutritional Asmnt/Malnutrition Patient General Information Nutritional Screening Consult Diagnosis ESRD, anasarca Pertinent Medical Hx/Surgical Hx Seizure, hep C, diabetes, CAD, HTN, CVA, quadreplegia, Parkinsons, ESRD Subjective Information Consult received for "Diabetic ". Per nursing notes, patient receives hemodialysis MWF and patient is non-verbal. Patient with 2+ pitting edema. Current Diet Order/ Nutrition Support Renal diet Patient / S.O Not Indicated Pertinent Medications D50W, D5-0.45NS @50 ml/hr, Glucagon, Novolog Pertinent Labs (07/13) Na 134, BUN 48, Cr 2.9, glucose 41-137, Ca 8.2, BNP 515, albumin 2 Nutritional Hx/Data Height 1.73 m Height (Calculated Centimeters) 172.7 Current Weight (lbs) 113.852 kg Weight (Calculated Kilograms) 113.9 Weight (Calculated Grams) 176288.7 [place] Body Weight 140 % Matthews Body Weight 179 Body Mass Index (BMI) 38.1 Recent Weight Change No Weight Status Morbidly Obese GI Symptoms GI Symptoms None Last BM 9/3 x 1 Difficult in: Chewing Food Allergies No Cultural/Ethnic/B[employer]ism Belief none indicated Usual diet at home unknown Skin Integrity/Comment: Arian 10, ulceration on sacrum, left lower leg, abrasion on L heel, scar on right leg. Current %PO Good (75-100%) Estimated Nutritional Goals BEE in Kcals: Adj wt of IBW Calories/Kcals/Kg 27-32 kcal/kg (using 76.2kg ADj wt) Kcals Calculated ~7685-2202 kcal/day Protein g/k.2-1.5 gm/kg using Adj wt Protein Calculated ~90-115 gm/day Fluid: ml Per MD due to HD Nutritional Problem 2. Problem Problem Altered nutrition related lab values related to Etiology episodes of hypoglycemia, electrolyte imbalance aeb Signs/Symptoms: Na 134, glucose 41-137, Ca 8.2 1. Problem Problem Increased nutrient needs related to Etiology hypermetabolic state, impaired skin integrity aeb Signs/Symptoms: Pt on Hemodialysis and with multiple ulcerations Intervention/Recommendation Comments 1. Continue Renal diet as tolerated by patient. No need for DM restriction at this time due to hypoglycemia. 2. Consider fluid restriction due to HD, hyponatremia and edema. 3. Consider adding Prosource 1 packet with each meal for an additional 45gm protein. Expected Outcomes/Goals Expected Outcomes/Goals Oral intake >75% of meals, weight stable or trend toward ideal body weight, nutrition related labs WNL
[2018-07-23] MEDS: HYDROmorphone 1 mg/mL 1mL Syr IVP PRN (02:36)
[2018-07-23 05:19] LABS: % BASOPHILS 0.7 % (0.0-2.0); % EOSINOPHILS 0.1 % (0.0-5.0); % LYMPHOCYTES 26.4 % (20.0-50.0); % NEUTROPHILS 65.8 % (40.0-80.0); BASOPHILE ABSOLUTE 0.1 Th/cumm (0-0.2); HEMATOCRIT 28.8 % (41.0-60); HEMOGLOBIN 9.5 gm/dL (12-16); MEAN CELL VOLUME 88.3 fl (81-100); MEAN CORPUSCULAR HGB CONC 32.8 pg (28.0-36.0); MONOCYTE ABSOLUTE 0.5 Th/cmm (0.3-1.0); PLATELET COUNT 88 Th/cmm (150-400); RED BLOOD COUNT 3.26 Mil/cmm (3.80-5.10); RED CELL DISTRIBUTION WIDTH 17.7 % (11.5-20.0); WHITE BLOOD COUNT 7.6 Th/cmm (4.8-10.8)
[2018-07-23 05:36] LABS: ANION GAP 13.7 (7.0-16.0); CALCIUM SERUM 8.2 mg/dL (8.6-10.3); CARBON DIOXIDE 20.1 mEq/L (21.0-31.0); CREATININE - SERUM 2.3 mg/dL (0.6-1.2); POTASSIUM SERUM 3.8 mEq/L (3.5-5.1)
[2018-07-23] MEDS: Levothyroxine 0.025 Mg Tab PO SCH (07:22)
--- NOTE | 2018-07-23 07:56 | Diagnostic Imaging Report ---
Portable chest x-ray HISTORY: Increased shortness of breath, endotracheal tube placement Compared with the prior exam of 07/22/2018, there is evidence of pleural fluid within the right and left upper hemithoracic regions. An endotracheal tube has been inserted. The tip is approximately 5.0 cm above the maxime. This may be advanced approximately 2.0 cm. IMPRESSION: 1. Endotracheal tube tip approximate 5.0 cm above the maxime. This may be advanced approximately 2.0 cm 2. Evidence of bilateral pleural effusions
--- NOTE | 2018-07-23 08:43 | General Progress Note ---
Subjective - Review of Systems Service Date: 07/23/18 Events since last encounter: labs ok ABG if ok extubate Objective - Results Result Diagrams: 07/23/18 04:45 07/23/18 04:45 Recent Labs: Laboratory Last Values WBC 7.6 Th/cmm (4.8-10.8) 07/23/18 04:45 RBC 3.26 Mil/cmm (3.80-5.10) L 07/23/18 04:45 Hgb 9.5 gm/dL (12-16) L 07/23/18 04:45 Hct 28.8 % (41.0-60) L 07/23/18 04:45 MCV 88.3 fl (81-100) 07/23/18 04:45 MCH 29.0 pg (27.0-31.0) 07/23/18 04:45 MCHC Differential 32.8 pg (28.0-36.0) 07/23/18 04:45 RDW 17.7 % (11.5-20.0) 07/23/18 04:45 Plt Count 88 Th/cmm (150-400) L 07/23/18 04:45 MPV 8.0 fl 07/23/18 04:45 Add Manual Diff YES 07/18/18 09:02 Neutrophils % 65.8 % (40.0-80.0) 07/23/18 04:45 Band Neutrophils % 1 % (0-10) 07/18/18 09:02 Lymphocytes % 26.4 % (20.0-50.0) 07/23/18 04:45 Monocytes % 7.0 % (2.0-10.0) 07/23/18 04:45 Eosinophils % 0.1 % (0.0-5.0) 07/23/18 04:45 Basophils % 0.7 % (0.0-2.0) 07/23/18 04:45 Neutrophils (Manual) 52 % (40-80) 07/18/18 09:02 Lymphocytes 36 % (20-50) 07/18/18 09:02 Monocytes 11 % (2-10) H 07/18/18 09:02 Eosinophils 0 % (0-5) 07/18/18 09:02 Basophils 0 % (0-3) 07/18/18 09:02 Platelet Estimate DECREASED PLATELETS (NORMAL) 07/18/18 09:02 PT 31.0 SECONDS (9.5-11.5) H 07/22/18 05:55 INR 3.15 (0.5-1.4) H 07/22/18 05:55 PTT (Actin FS) 43.0 SECONDS (26.0-38.0) H 07/20/18 08:08 Sodium 137 mEq/L (136-145) 07/23/18 04:45 Potassium 3.8 mEq/L (3.5-5.1) 07/23/18 04:45 Chloride 107 mEq/L (98-107) 07/23/18 04:45 Carbon Dioxide 20.1 mEq/L (21.0-31.0) L 07/23/18 04:45 Anion Gap 13.7 (7.0-16.0) 07/23/18 04:45 BUN 11 mg/dL (7-25) 07/23/18 04:45 Creatinine 2.3 mg/dL (0.6-1.2) H 07/23/18 04:45 Est GFR ( Amer) 29.0 ml/min (>90) 07/23/18 04:45 Est GFR (Non-Af Amer) 24.0 ml/min 07/23/18 04:45 BUN/Creatinine Ratio 4.8 07/23/18 04:45 Glucose 219 mg/dL (70-105) H 07/23/18 04:45 POC Glucose 211 MG/DL (70 - 105) H 07/23/18 05:42 Whole Bld Lactic Acid 1.29 mmol/L (0.60-1.99) 07/12/18 20:50 Calcium 8.2 mg/dL (8.6-10.3) L 07/23/18 04:45 Magnesium 1.6 mg/dL (1.9-2.7) L 07/21/18 05:00 Total Bilirubin 0.3 mg/dL (0.3-1.0) 07/18/18 05:20 AST 18 U/L (13-39) 07/18/18 05:20 ALT 7 U/L (7-52) 07/18/18 05:20 Alkaline Phosphatase 80 U/L (34-104) 07/18/18 05:20 Creatine Kinase 20 U/L (30-223) L 07/12/18 20:50 Troponin I 0.49 ng/mL (0.01-0.05) H* 07/13/18 15:20 B-Natriuretic Peptide 515.0 pg/mL (5.0-100.0) H 07/13/18 04:00 Total Protein 4.0 gm/dL (6.0-8.3) L 07/18/18 05:20 Albumin < 1.5 gm/dL (3.7-5.3) L 07/18/18 05:20 Globulin 2.5 gm/dL 07/18/18 05:20 Albumin/Globulin Ratio 0.6 (1.0-1.8) L 07/18/18 05:20 Triglycerides 53 mg/dL (<150) 07/13/18 04:00 Cholesterol 41 mg/dL (<200) 07/13/18 04:00 LDL Cholesterol Direct 11 mg/dL (75-193) L 07/13/18 04:00 HDL Cholesterol 24 mg/dL (23-92) 07/13/18 04:00 TSH 1.21 uIU/ml (0.34-5.60) 07/13/18 04:00 Urine Source [place] 07/12/18 20:50 Urine Color YELLOW 07/12/18 20:50 Urine Clarity CLOUDY (CLEAR) H 07/12/18 20:50 Urine pH 8.5 (4.6 - 8.0) 07/12/18 20:50 Ur Specific [place] 1.015 (1.005-1.030) 07/12/18 20:50 Urine Protein 100 mg/dL (NEGATIVE) H 07/12/18 20:50 Urine Glucose (UA) NEGATIVE mg/dL (NEGATIVE) 07/12/18 20:50 Urine Ketones NEGATIVE mg/dL (NEGATIVE) 07/12/18 20:50 Urine Blood TRACE (NEGATIVE) 07/12/18 20:50 Urine Nitrate NEGATIVE (NEGATIVE) 07/12/18 20:50 Urine Bilirubin NEGATIVE (NEGATIVE) 07/12/18 20:50 Urine Urobilinogen 0.2 E.U./dL (0.2 - 1.0) 07/12/18 20:50 Ur Leukocyte Esterase LARGE (NEGATIVE) H 07/12/18 20:50 Urine RBC 2-5 /hpf (0-5) 07/12/18 20:50 Urine WBC >100 /hpf (0-5) H 07/12/18 20:50 Ur Epithelial Cells MODERATE /lpf (FEW) 07/12/18 20:50 Urine Bacteria MANY /hpf (NONE SEEN) H 07/12/18 20:50 Amikacin Peak 16.9 ug/mL (20.0-30.0) L 07/19/18 10:15 Amikacin Trough 5.5 ug/mL (1.0-8.0) 07/18/18 18:30 Random Vancomycin 21.5 ug/mL (5.0-40.0) 07/22/18 05:55 - Physical Exam Vitals and I&O: Vital Signs Temp 96.9 F 07/23/18 06:00 Pulse 122 07/23/18 07:54 Resp 12 07/23/18 06:00 BP 128/66 07/23/18 06:00 Pulse Ox 100 07/23/18 07:54 Intake & Output 07/22/18 07/23/18 07/23/18 18:59 06:59 18:59 Intake Total 100 100 Output Total 280 Balance 100 -180 Weight (lbs) 107.501 kg Intake: Intake, IV Amount 100 100 Tigecycline 50 mg In 100 100 Sodium Chloride 0.9% 100 ml @ 100 mls/hr IV Q12HR [facility] Rx#:[id number] Output: Drainage 200 Sacrum 100 colostomy 100 Urine 80 Other: # Bowel Movements 0 Stool Characteristics Soft Formed Brown Weight Source Bedscale Active Medications: Current Medications Acetaminophen (Tylenol) 650 mg PO Q6H PRN PRN Reason: Pain or Fever >101 Stop: 09/11/18 15:14 Albuterol/Ipratropium (Duoneb Neb) 3 ml HHN Q4HRT PRN PRN Reason: Shortness of Breath or Wheeze Stop: 09/11/18 15:14 Ascorbic Acid (Vitamin C) 500 mg PO DAILY [facility] Stop: 09/12/18 08:59 Last Admin: 07/22/18 08:50 Dose: Not Given Atorvastatin Calcium (Lipitor) 20 mg PO HS [facility] Stop: 09/11/18 20:59 Last Admin: 07/22/18 20:01 Dose: Not Given [place] Oil/[place] Balsam/Trypsin (Venelex) 1 appl TP DAILY [facility] Stop: 09/13/18 08:59 Last Admin: 07/22/18 08:55 Dose: 1 appl Dextrose (Glutose 40%) 18.75 gm PO PRN PRN PRN Reason: Blood Glucose less than 70 Stop: 09/11/18 04:10 Docusate Sodium (Colace) 100 mg PO BID [facility] Stop: 09/11/18 16:59 Last Admin: 07/22/18 18:39 Dose: Not Given Famotidine (Pepcid) 20 mg PO DAILY [facility] Stop: 09/12/18 08:59 Last Admin: 07/22/18 08:50 Dose: Not Given Folic Acid (Folate) 1 mg PO DAILY [facility] Stop: 09/12/18 08:59 Last Admin: 07/22/18 08:50 Dose: Not Given Glucagon (Glucagen) 1 mg IM PRN PRN PRN Reason: Blood Glucose less than 70 Stop: 09/11/18 04:10 Heparin Sodium (Porcine) (Heparin) 5,000 units SUBQ Q12HR [facility] Stop: 09/17/18 20:59 Last Admin: 07/22/18 20:38 Dose: 5,000 units Hydromorphone HCl (Dilaudid) 1 mg IVP Q4HR PRN PRN Reason: Pain (Severe) Stop: 09/20/18 20:12 Last Admin: 07/23/18 02:36 Dose: 1 mg Tigecycline 50 mg/ Sodium (Chloride) 100 mls @ 100 mls/hr IV Q12HR [facility] Stop: 07/26/18 08:59 Last Infusion: 07/22/18 21:40 Dose: Infused Dextrose/Sodium Chloride (D5-0.9%Ns) 1,000 mls @ 100 mls/hr IV .Q10H [facility] Stop: 09/20/18 20:13 Last Admin: 07/22/18 20:30 Dose: 100 mls/hr Insulin Aspart (Novolog Insulin Sliding Scale) 0 units SUBQ Q6HR [facility]; Protocol Stop: 09/11/18 05:59 Last Admin: 07/23/18 07:05 Dose: 4 units Lactobacillus Rhamnosus (Culturelle 15b) 1 each PO DAILY [facility] Stop: 09/13/18 13:59 Last Admin: 07/22/18 08:51 Dose: Not Given Levothyroxine Sodium (Synthroid) 0.025 mg PO QDAC [facility] Stop: 09/12/18 07:29 Last Admin: 07/23/18 07:22 Dose: Not Given Meperidine HCl (Demerol) 25 mg IVP Q10M PRN PRN Reason: Pain (Severe) Stop: 07/23/18 18:00 Miscellaneous (Probiotic Screen) 1 [facility] PRN PRN PRN Reason: PROTOCOL Stop: 09/13/18 11:44 Miscellaneous (Amikacin Iv Per Pharmacy) 1 [facility] PRN PRN PRN Reason: PROTOCOL Stop: 09/13/18 18:08 Miscellaneous (Vancomycin Iv Per Pharmacy) 1 [facility] PRN [facility] Stop: 09/14/18 18:59 Oxcarbazepine (Trileptal) 600 mg PO BID [facility] Stop: 09/11/18 16:59 Last Admin: 07/22/18 18:39 Dose: Not Given Risperidone (Risperdal) 2 mg PO HS [facility] Stop: 09/11/18 20:59 Last Admin: 07/22/18 20:01 Dose: Not Given Senna (Senna) 17.2 mg PO BID [facility] Stop: 09/11/18 16:59 Last Admin: 07/22/18 18:39 Dose: Not Given Sevelamer Carbonate (Renvela) 800 mg PO TIDWM [facility] Stop: 09/11/18 16:59 Last Admin: 07/23/18 08:03 Dose: Not Given Vitamin B Complex/Vit C/Folic Acid (Vitamin B Complex W/Vitamin C) 1 tab PO DAILY [facility] Stop: 09/12/18 08:59 Last Admin: 07/22/18 08:51 Dose: Not Given Zinc Sulfate (Zinc Sulfate) 220 mg PO DAILY [facility] Stop: 09/12/18 08:59 Last Admin: 07/22/18 08:51 Dose: Not Given General: Alert, Mild distress HEENT: Atraumatic, EOMI Neck: Supple, +2 carotid pulse wo bruit Cardiovascular: Regular rate, Normal S1, Normal S2 Lungs: Other (scattered rales) Abdomen: Bowel sounds, Soft Extremities: Edema ((+) 2-3 edema), Other ((+) 2 bipedal edema) Neurological: Sensation intact Skin: no Rash Psych/Mental Status: Mood NL Assessment/Plan - Problem List Patient Problems: All Active Problems Anasarca (Acute) R60.1 Anemia (Acute) D64.9 CAD (coronary artery disease) (Acute) I25.10 CHF (congestive heart failure) (Acute) I50.9 CKD (chronic kidney disease) (Acute) N18.9 HTN (hypertension) (Acute) I10 UTI (urinary tract infection) (Acute) sacral stage 4 wound (Acute) Nutritional Asmnt/Malnutr-PDOC - Dietary Evaluation Malnutrition Findings (Please click <Entered> for more info): Nutritional Asmnt/Malnutrition Start: 07/13/18 13: 54 Text: Status: Complete Freq: Protocol: Document 07/13/18 13:56 MMERIN (Rec: 07/13/18 14:10 ALDAIR NASH- [id number]) Nutritional Asmnt/Malnutrition Patient General Information Nutritional Screening Consult Diagnosis ESRD, anasarca Pertinent Medical Hx/Surgical Hx Seizure, hep C, diabetes, CAD, HTN, CVA, quadreplegia, Parkinsons, ESRD Subjective Information Consult received for "Diabetic ". Per nursing notes, patient receives hemodialysis MWF and patient is non-verbal. Patient with 2+ pitting edema. Current Diet Order/ Nutrition Support Renal diet Patient / S.O Not Indicated Pertinent Medications D50W, D5-0.45NS @50 ml/hr, Glucagon, Novolog Pertinent Labs (07/13) Na 134, BUN 48, Cr 2.9, glucose 41-137, Ca 8.2, BNP 515, albumin 2 Nutritional Hx/Data Height 1.73 m Height (Calculated Centimeters) 172.7 Current Weight (lbs) 113.852 kg Weight (Calculated Kilograms) 113.9 Weight (Calculated Grams) 765858.7 [place] Body Weight 140 % [place] Body Weight 179 Body Mass Index (BMI) 38.1 Recent Weight Change No Weight Status Morbidly Obese GI Symptoms GI Symptoms None Last BM 07/13 x 1 Difficult in: Chewing Food Allergies No Cultural/Ethnic/Gnosticist Belief none indicated Usual diet at home unknown Skin Integrity/Comment: Arian 10, ulceration on sacrum, left lower leg, abrasion on L heel, scar on right leg. Current %PO Good (75-100%) Estimated Nutritional Goals BEE in Kcals: Adj wt of IBW Calories/Kcals/Kg 27-32 kcal/kg (using 76.2kg ADj wt) Kcals Calculated ~0024-6142 kcal/day Protein g/k.2-1.5 gm/kg using Adj wt Protein Calculated ~90-115 gm/day Fluid: ml Per MD due to HD Nutritional Problem 2. Problem Problem Altered nutrition related lab values related to Etiology episodes of hypoglycemia, electrolyte imbalance aeb Signs/Symptoms: Na 134, glucose 41-137, Ca 8.2 1. Problem Problem Increased nutrient needs related to Etiology hypermetabolic state, impaired skin integrity aeb Signs/Symptoms: Pt on Hemodialysis and with multiple ulcerations Intervention/Recommendation Comments 1. Continue Renal diet as tolerated by patient. No need for DM restriction at this time due to hypoglycemia. 2. Consider fluid restriction due to HD, hyponatremia and edema. 3. Consider adding Prosource 1 packet with each meal for an additional 45gm protein. Expected Outcomes/Goals Expected Outcomes/Goals Oral intake >75% of meals, weight stable or trend toward ideal body weight, nutrition related labs WNL
[2018-07-23] MEDS: Docusate Sodium 100 mg/10 mL UD PO SCH ×2 (08:50→16:49)
[2018-07-23] MEDS: Lactobacillus Rhamnosus GG 15 Billion CFU CAP.SPRINK PO SCH (08:50)
[2018-07-23] MEDS: Vitamin B Complex w/Vitamin C Tab PO SCH (08:52)
[2018-07-23] MEDS: Venelex 60gm Tube TP SCH (08:54)
[2018-07-23 09:14] LABS: INR 2.29 (0.5-1.4); PROTHROMBIN TIME (TEST) 22.9 SECONDS (9.5-11.5)
[2018-07-23 09:27] LABS: pH 7.48 (7.35-7.45)
[2018-07-23] MEDS: D5-0.9%NS 1,000 ML IV SCH ×2 (09:54→18:34)
--- NOTE | 2018-07-23 09:59 | General Progress Note ---
Subjective - Review of Systems Events since last encounter: in no acute distress Objective - Results Result Diagrams: 07/23/18 04:45 07/23/18 04:45 Recent Labs: Laboratory Last Values WBC 7.6 Th/cmm (4.8-10.8) 07/23/18 04:45 RBC 3.26 Mil/cmm (3.80-5.10) L 07/23/18 04:45 Hgb 9.5 gm/dL (12-16) L 07/23/18 04:45 Hct 28.8 % (41.0-60) L 07/23/18 04:45 MCV 88.3 fl (81-100) 07/23/18 04:45 MCH 29.0 pg (27.0-31.0) 07/23/18 04:45 MCHC Differential 32.8 pg (28.0-36.0) 07/23/18 04:45 RDW 17.7 % (11.5-20.0) 07/23/18 04:45 Plt Count 88 Th/cmm (150-400) L 07/23/18 04:45 MPV 8.0 fl 07/23/18 04:45 Add Manual Diff YES 07/18/18 09:02 Neutrophils % 65.8 % (40.0-80.0) 07/23/18 04:45 Band Neutrophils % 1 % (0-10) 07/18/18 09:02 Lymphocytes % 26.4 % (20.0-50.0) 07/23/18 04:45 Monocytes % 7.0 % (2.0-10.0) 07/23/18 04:45 Eosinophils % 0.1 % (0.0-5.0) 07/23/18 04:45 Basophils % 0.7 % (0.0-2.0) 07/23/18 04:45 Neutrophils (Manual) 52 % (40-80) 07/18/18 09:02 Lymphocytes 36 % (20-50) 07/18/18 09:02 Monocytes 11 % (2-10) H 07/18/18 09:02 Eosinophils 0 % (0-5) 07/18/18 09:02 Basophils 0 % (0-3) 07/18/18 09:02 Platelet Estimate DECREASED PLATELETS (NORMAL) 07/18/18 09:02 PT 31.0 SECONDS (9.5-11.5) H 07/22/18 05:55 INR 3.15 (0.5-1.4) H 07/22/18 05:55 PTT (Actin FS) 43.0 SECONDS (26.0-38.0) H 07/20/18 08:08 Specimen Source Arterial 07/23/18 09:15 Sample Site LB 07/23/18 09:15 pH 7.48 (7.35-7.45) H 07/23/18 09:15 pCO2 33.0 mmHg (35.0-45.0) L 07/23/18 09:15 pO2 79.0 mmHg (80.0-100.0) L 07/23/18 09:15 HCO3 26.1 mEq/L (20.0-26.0) H 07/23/18 09:15 Base Excess 1.5 mEq/L (-3.0-3.0) 07/23/18 09:15 O2 Saturation 96.0 % (92.0-100.0) 07/23/18 09:15 [place] Test NA 07/23/18 09:15 Vent Rate 10 07/23/18 09:15 Inspired O2 35 07/23/18 09:15 Tidal Volume 800 07/23/18 09:15 PEEP 0 07/23/18 09:15 Pressure (ins/psv/peep) 10 07/23/18 09:15 Critical Value E.QUINTEROS 07/23/18 09:15 Sodium 137 mEq/L (136-145) 07/23/18 04:45 Potassium 3.8 mEq/L (3.5-5.1) 07/23/18 04:45 Chloride 107 mEq/L (98-107) 07/23/18 04:45 Carbon Dioxide 20.1 mEq/L (21.0-31.0) L 07/23/18 04:45 Anion Gap 13.7 (7.0-16.0) 07/23/18 04:45 BUN 11 mg/dL (7-25) 07/23/18 04:45 Creatinine 2.3 mg/dL (0.6-1.2) H 07/23/18 04:45 Est GFR ( Amer) 29.0 ml/min (>90) 07/23/18 04:45 Est GFR (Non-Af Amer) 24.0 ml/min 07/23/18 04:45 BUN/Creatinine Ratio 4.8 07/23/18 04:45 Glucose 219 mg/dL (70-105) H 07/23/18 04:45 POC Glucose 211 MG/DL (70 - 105) H 07/23/18 05:42 Whole Bld Lactic Acid 1.29 mmol/L (0.60-1.99) 07/12/18 20:50 Calcium 8.2 mg/dL (8.6-10.3) L 07/23/18 04:45 Magnesium 1.6 mg/dL (1.9-2.7) L 07/21/18 05:00 Total Bilirubin 0.3 mg/dL (0.3-1.0) 07/18/18 05:20 AST 18 U/L (13-39) 07/18/18 05:20 ALT 7 U/L (7-52) 07/18/18 05:20 Alkaline Phosphatase 80 U/L (34-104) 07/18/18 05:20 Creatine Kinase 20 U/L (30-223) L 07/12/18 20:50 Troponin I 0.49 ng/mL (0.01-0.05) H* 07/13/18 15:20 B-Natriuretic Peptide 515.0 pg/mL (5.0-100.0) H 07/13/18 04:00 Total Protein 4.0 gm/dL (6.0-8.3) L 07/18/18 05:20 Albumin < 1.5 gm/dL (3.7-5.3) L 07/18/18 05:20 Globulin 2.5 gm/dL 07/18/18 05:20 Albumin/Globulin Ratio 0.6 (1.0-1.8) L 07/18/18 05:20 Triglycerides 53 mg/dL (<150) 07/13/18 04:00 Cholesterol 41 mg/dL (<200) 07/13/18 04:00 LDL Cholesterol Direct 11 mg/dL (75-193) L 07/13/18 04:00 HDL Cholesterol 24 mg/dL (23-92) 07/13/18 04:00 TSH 1.21 uIU/ml (0.34-5.60) 07/13/18 04:00 Urine Source SANC[place] 07/12/18 20:50 Urine Color YELLOW 07/12/18 20:50 Urine Clarity CLOUDY (CLEAR) H 07/12/18 20:50 Urine pH 8.5 (4.6 - 8.0) 07/12/18 20:50 Ur Specific [place] 1.015 (1.005-1.030) 07/12/18 20:50 Urine Protein 100 mg/dL (NEGATIVE) H 07/12/18 20:50 Urine Glucose (UA) NEGATIVE mg/dL (NEGATIVE) 07/12/18 20:50 Urine Ketones NEGATIVE mg/dL (NEGATIVE) 07/12/18 20:50 Urine Blood TRACE (NEGATIVE) 07/12/18 20:50 Urine Nitrate NEGATIVE (NEGATIVE) 07/12/18 20:50 Urine Bilirubin NEGATIVE (NEGATIVE) 07/12/18 20:50 Urine Urobilinogen 0.2 E.U./dL (0.2 - 1.0) 07/12/18 20:50 Ur Leukocyte Esterase LARGE (NEGATIVE) H 07/12/18 20:50 Urine RBC 2-5 /hpf (0-5) 07/12/18 20:50 Urine WBC >100 /hpf (0-5) H 07/12/18 20:50 Ur Epithelial Cells MODERATE /lpf (FEW) 07/12/18 20:50 Urine Bacteria MANY /hpf (NONE SEEN) H 07/12/18 20:50 Amikacin Peak 16.9 ug/mL (20.0-30.0) L 07/19/18 10:15 Amikacin Trough 5.5 ug/mL (1.0-8.0) 07/18/18 18:30 Random Vancomycin 21.5 ug/mL (5.0-40.0) 07/22/18 05:55 - Physical Exam Vitals and I&O: Vital Signs Temp 96.9 F 07/23/18 06:00 Pulse 109 07/23/18 09:47 Resp 12 07/23/18 06:00 BP 128/66 07/23/18 06:00 Pulse Ox 100 07/23/18 09:47 Intake & Output 07/22/18 07/23/18 07/23/18 18:59 06:59 18:59 Intake Total 100 1100 Output Total 280 Balance 100 820 Weight (lbs) 107.501 kg Intake: Intake, IV Amount 100 1100 D5-0.9%Ns 1,000 ml @ 100 1000 mls/hr IV .Q10H [facility] Rx#: [id number] Tigecycline 50 mg In 100 100 Sodium Chloride 0.9% 100 ml @ 100 mls/hr IV Q12HR [facility] Rx#:[id number] Output: Drainage 200 Sacrum 100 colostomy 100 Urine 80 Other: # Bowel Movements 0 Stool Characteristics Soft Formed Brown Weight Source Bedscale Active Medications: Current Medications Acetaminophen (Tylenol) 650 mg PO Q6H PRN PRN Reason: Pain or Fever >101 Stop: 09/11/18 15:14 Albuterol/Ipratropium (Duoneb Neb) 3 ml HHN Q4HRT PRN PRN Reason: Shortness of Breath or Wheeze Stop: 09/11/18 15:14 Ascorbic Acid (Vitamin C) 500 mg PO DAILY [facility] Stop: 09/12/18 08:59 Last Admin: 07/23/18 08:49 Dose: Not Given Atorvastatin Calcium (Lipitor) 20 mg PO HS [facility] Stop: 09/11/18 20:59 Last Admin: 07/22/18 20:01 Dose: Not Given [place] Oil/[place] Balsam/Trypsin (Venelex) 1 appl TP DAILY [facility] Stop: 09/13/18 08:59 Last Admin: 07/23/18 08:54 Dose: Not Given Dextrose (Glutose 40%) 18.75 gm PO PRN PRN PRN Reason: Blood Glucose less than 70 Stop: 09/11/18 04:10 Docusate Sodium (Colace) 100 mg PO BID [facility] Stop: 09/11/18 16:59 Last Admin: 07/23/18 08:50 Dose: Not Given Famotidine (Pepcid) 20 mg PO DAILY [facility] Stop: 09/12/18 08:59 Last Admin: 07/23/18 08:50 Dose: Not Given Folic Acid (Folate) 1 mg PO DAILY [facility] Stop: 09/12/18 08:59 Last Admin: 07/23/18 08:50 Dose: Not Given Glucagon (Glucagen) 1 mg IM PRN PRN PRN Reason: Blood Glucose less than 70 Stop: 09/11/18 04:10 Heparin Sodium (Porcine) (Heparin) 5,000 units SUBQ Q12HR [facility] Stop: 09/17/18 20:59 Last Admin: 07/23/18 09:52 Dose: 5,000 units Hydromorphone HCl (Dilaudid) 1 mg IVP Q4HR PRN PRN Reason: Pain (Severe) Stop: 09/20/18 20:12 Last Admin: 07/23/18 02:36 Dose: 1 mg Tigecycline 50 mg/ Sodium (Chloride) 100 mls @ 100 mls/hr IV Q12HR [facility] Stop: 07/26/18 08:59 Last Admin: 07/23/18 09:52 Dose: 100 mls/hr Dextrose/Sodium Chloride (D5-0.9%Ns) 1,000 mls @ 100 mls/hr IV .Q10H [facility] Stop: 09/20/18 20:13 Last Admin: 07/23/18 09:54 Dose: 100 mls/hr Insulin Aspart (Novolog Insulin Sliding Scale) 0 units SUBQ Q6HR [facility]; Protocol Stop: 09/11/18 05:59 Last Admin: 07/23/18 07:05 Dose: 4 units Lactobacillus Rhamnosus (Culturelle 15b) 1 each PO DAILY [facility] Stop: 09/13/18 13:59 Last Admin: 07/23/18 08:50 Dose: Not Given Levothyroxine Sodium (Synthroid) 0.025 mg PO QDAC [facility] Stop: 09/12/18 07:29 Last Admin: 07/23/18 07:22 Dose: Not Given Meperidine HCl (Demerol) 25 mg IVP Q10M PRN PRN Reason: Pain (Severe) Stop: 07/23/18 18:00 Miscellaneous (Probiotic Screen) 1 ea MC PRN PRN PRN Reason: PROTOCOL Stop: 09/13/18 11:44 Miscellaneous (Amikacin Iv Per Pharmacy) 1 ea MC PRN PRN PRN Reason: PROTOCOL Stop: 09/13/18 18:08 Miscellaneous (Vancomycin Iv Per Pharmacy) 1 ea MC PRN [facility] Stop: 09/14/18 18:59 Oxcarbazepine (Trileptal) 600 mg PO BID [facility] Stop: 09/11/18 16:59 Last Admin: 07/23/18 08:51 Dose: Not Given Risperidone (Risperdal) 2 mg PO HS [facility] Stop: 09/11/18 20:59 Last Admin: 07/22/18 20:01 Dose: Not Given Senna (Senna) 17.2 mg PO BID [facility] Stop: 09/11/18 16:59 Last Admin: 07/23/18 08:51 Dose: Not Given Sevelamer Carbonate (Renvela) 800 mg PO TIDWM [facility] Stop: 09/11/18 16:59 Last Admin: 07/23/18 08:03 Dose: Not Given Vitamin B Complex/Vit C/Folic Acid (Vitamin B Complex W/Vitamin C) 1 tab PO DAILY [facility] Stop: 09/12/18 08:59 Last Admin: 07/23/18 08:52 Dose: Not Given Zinc Sulfate (Zinc Sulfate) 220 mg PO DAILY [facility] Stop: 09/12/18 08:59 Last Admin: 07/23/18 08:54 Dose: Not Given General: Alert, Mild distress HEENT: Atraumatic, EOMI Neck: Supple, +2 carotid pulse wo bruit Cardiovascular: Regular rate, Normal S1, Normal S2 Lungs: Other (scattered rales) Abdomen: Bowel sounds, Soft Extremities: Edema ((+) 2-3 edema), Other ((+) 2 bipedal edema) Neurological: Sensation intact Skin: no Rash Psych/Mental Status: Mood NL - Procedures Procedures: Procedures Procedure Code Date BYPASS DESCENDING COLON TO CUTANEOUS, OPEN APPROACH [id number] 07/12/18 EXCISION OF L LOW LEG SUBCU/FASCIA, OPEN APPROACH [id number] 07/12/18 EXCISION OF SACRUM, OPEN APPROACH [id number] 07/12/18 EXCISION OF SIGMOID COLON, OPEN APPROACH [id number] 07/12/18 Assessment/Plan - Problem List Patient Problems: All Active Problems Anasarca (Acute) R60.1 Anemia (Acute) D64.9 CAD (coronary artery disease) (Acute) I25.10 CHF (congestive heart failure) (Acute) I50.9 CKD (chronic kidney disease) (Acute) N18.9 HTN (hypertension) (Acute) I10 UTI (urinary tract infection) (Acute) sacral stage 4 wound (Acute) - Plan Plan: as per order sheet Nutritional Asmnt/Malnutr-PDOC - Dietary Evaluation Malnutrition Findings (Please click <Entered> for more info): Nutritional Asmnt/Malnutrition Start: 07/13/18 13: 54 Text: Status: Complete Freq: Protocol: Document 07/13/18 13:56 ALDAIR (Rec: 07/13/18 14:10 ALDAIR [id number]) Nutritional Asmnt/Malnutrition Patient General Information Nutritional Screening Consult Diagnosis ESRD, anasarca Pertinent Medical Hx/Surgical Hx Seizure, hep C, diabetes, CAD, HTN, CVA, quadreplegia, Parkinsons, ESRD Subjective Information Consult received for "Diabetic ". Per nursing notes, patient receives hemodialysis MWF and patient is non-verbal. Patient with 2+ pitting edema. Current Diet Order/ Nutrition Support Renal diet Patient / S.O Not Indicated Pertinent Medications D50W, D5-0.45NS @50 ml/hr, Glucagon, Novolog Pertinent Labs (07/13) Na 134, BUN 48, Cr 2.9, glucose 41-137, Ca 8.2, BNP 515, albumin 2 Nutritional Hx/Data Height 1.73 m Height (Calculated Centimeters) 172.7 Current Weight (lbs) 113.852 kg Weight (Calculated Kilograms) 113.9 Weight (Calculated Grams) 016051.7 [place] Body Weight 140 % [place] Body Weight 179 Body Mass Index (BMI) 38.1 Recent Weight Change No Weight Status Morbidly Obese GI Symptoms GI Symptoms None Last BM 07/13 x 1 Difficult in: Chewing Food Allergies No Cultural/Ethnic/Taoist Belief none indicated Usual diet at home unknown Skin Integrity/Comment: Arian 10, ulceration on sacrum, left lower leg, abrasion on L heel, scar on right leg. Current %PO Good (75-100%) Estimated Nutritional Goals BEE in Kcals: Adj wt of IBW Calories/Kcals/Kg 27-32 kcal/kg (using 76.2kg ADj wt) Kcals Calculated ~5335-3671 kcal/day Protein g/k.2-1.5 gm/kg using Adj wt Protein Calculated ~90-115 gm/day Fluid: ml Per MD due to HD Nutritional Problem 2. Problem Problem Altered nutrition related lab values related to Etiology episodes of hypoglycemia, electrolyte imbalance aeb Signs/Symptoms: Na 134, glucose 41-137, Ca 8.2 1. Problem Problem Increased nutrient needs related to Etiology hypermetabolic state, impaired skin integrity aeb Signs/Symptoms: Pt on Hemodialysis and with multiple ulcerations Intervention/Recommendation Comments 1. Continue Renal diet as tolerated by patient. No need for DM restriction at this time due to hypoglycemia. 2. Consider fluid restriction due to HD, hyponatremia and edema. 3. Consider adding Prosource 1 packet with each meal for an additional 45gm protein. Expected Outcomes/Goals Expected Outcomes/Goals Oral intake >75% of meals, weight stable or trend toward ideal body weight, nutrition related labs WNL
--- NOTE | 2018-07-23 13:09 | General Progress Note ---
Subjective - Review of Systems Service Date: 07/23/18 Subjective: alert, on vent, comfortable Objective - Results Result Diagrams: 07/23/18 04:45 07/23/18 04:45 Recent Labs: Laboratory Last Values WBC 7.6 Th/cmm (4.8-10.8) 07/23/18 04:45 RBC 3.26 Mil/cmm (3.80-5.10) L 07/23/18 04:45 Hgb 9.5 gm/dL (12-16) L 07/23/18 04:45 Hct 28.8 % (41.0-60) L 07/23/18 04:45 MCV 88.3 fl (81-100) 07/23/18 04:45 MCH 29.0 pg (27.0-31.0) 07/23/18 04:45 MCHC Differential 32.8 pg (28.0-36.0) 07/23/18 04:45 RDW 17.7 % (11.5-20.0) 07/23/18 04:45 Plt Count 88 Th/cmm (150-400) L 07/23/18 04:45 MPV 8.0 fl 07/23/18 04:45 Add Manual Diff YES 07/18/18 09:02 Neutrophils % 65.8 % (40.0-80.0) 07/23/18 04:45 Band Neutrophils % 1 % (0-10) 07/18/18 09:02 Lymphocytes % 26.4 % (20.0-50.0) 07/23/18 04:45 Monocytes % 7.0 % (2.0-10.0) 07/23/18 04:45 Eosinophils % 0.1 % (0.0-5.0) 07/23/18 04:45 Basophils % 0.7 % (0.0-2.0) 07/23/18 04:45 Neutrophils (Manual) 52 % (40-80) 07/18/18 09:02 Lymphocytes 36 % (20-50) 07/18/18 09:02 Monocytes 11 % (2-10) H 07/18/18 09:02 Eosinophils 0 % (0-5) 07/18/18 09:02 Basophils 0 % (0-3) 07/18/18 09:02 Platelet Estimate DECREASED PLATELETS (NORMAL) 07/18/18 09:02 PT 31.0 SECONDS (9.5-11.5) H 07/22/18 05:55 INR 3.15 (0.5-1.4) H 07/22/18 05:55 PTT (Actin FS) 43.0 SECONDS (26.0-38.0) H 07/20/18 08:08 Specimen Source Arterial 07/23/18 09:15 Sample Site LB 07/23/18 09:15 pH 7.48 (7.35-7.45) H 07/23/18 09:15 pCO2 33.0 mmHg (35.0-45.0) L 07/23/18 09:15 pO2 79.0 mmHg (80.0-100.0) L 07/23/18 09:15 HCO3 26.1 mEq/L (20.0-26.0) H 07/23/18 09:15 Base Excess 1.5 mEq/L (-3.0-3.0) 07/23/18 09:15 O2 Saturation 96.0 % (92.0-100.0) 07/23/18 09:15 [place] Test NA 07/23/18 09:15 Vent Rate 10 07/23/18 09:15 Inspired O2 35 07/23/18 09:15 Tidal Volume 800 07/23/18 09:15 PEEP 0 07/23/18 09:15 Pressure (ins/psv/peep) 10 07/23/18 09:15 Critical Value E.QUINTEROS 07/23/18 09:15 Sodium 137 mEq/L (136-145) 07/23/18 04:45 Potassium 3.8 mEq/L (3.5-5.1) 07/23/18 04:45 Chloride 107 mEq/L (98-107) 07/23/18 04:45 Carbon Dioxide 20.1 mEq/L (21.0-31.0) L 07/23/18 04:45 Anion Gap 13.7 (7.0-16.0) 07/23/18 04:45 BUN 11 mg/dL (7-25) 07/23/18 04:45 Creatinine 2.3 mg/dL (0.6-1.2) H 07/23/18 04:45 Est GFR ( Amer) 29.0 ml/min (>90) 07/23/18 04:45 Est GFR (Non-Af Amer) 24.0 ml/min 07/23/18 04:45 BUN/Creatinine Ratio 4.8 07/23/18 04:45 Glucose 219 mg/dL (70-105) H 07/23/18 04:45 POC Glucose 162 MG/DL (70 - 105) H 07/23/18 11:45 Whole Bld Lactic Acid 1.29 mmol/L (0.60-1.99) 07/12/18 20:50 Calcium 8.2 mg/dL (8.6-10.3) L 07/23/18 04:45 Magnesium 1.6 mg/dL (1.9-2.7) L 07/21/18 05:00 Total Bilirubin 0.3 mg/dL (0.3-1.0) 07/18/18 05:20 AST 18 U/L (13-39) 07/18/18 05:20 ALT 7 U/L (7-52) 07/18/18 05:20 Alkaline Phosphatase 80 U/L (34-104) 07/18/18 05:20 Creatine Kinase 20 U/L (30-223) L 07/12/18 20:50 Troponin I 0.49 ng/mL (0.01-0.05) H* 07/13/18 15:20 B-Natriuretic Peptide 515.0 pg/mL (5.0-100.0) H 07/13/18 04:00 Total Protein 4.0 gm/dL (6.0-8.3) L 07/18/18 05:20 Albumin < 1.5 gm/dL (3.7-5.3) L 07/18/18 05:20 Globulin 2.5 gm/dL 07/18/18 05:20 Albumin/Globulin Ratio 0.6 (1.0-1.8) L 07/18/18 05:20 Triglycerides 53 mg/dL (<150) 07/13/18 04:00 Cholesterol 41 mg/dL (<200) 07/13/18 04:00 LDL Cholesterol Direct 11 mg/dL (75-193) L 07/13/18 04:00 HDL Cholesterol 24 mg/dL (23-92) 07/13/18 04:00 TSH 1.21 uIU/ml (0.34-5.60) 07/13/18 04:00 Urine Source [place] 07/12/18 20:50 Urine Color YELLOW 07/12/18 20:50 Urine Clarity CLOUDY (CLEAR) H 07/12/18 20:50 Urine pH 8.5 (4.6 - 8.0) 07/12/18 20:50 Ur Specific [place] 1.015 (1.005-1.030) 07/12/18 20:50 Urine Protein 100 mg/dL (NEGATIVE) H 07/12/18 20:50 Urine Glucose (UA) NEGATIVE mg/dL (NEGATIVE) 07/12/18 20:50 Urine Ketones NEGATIVE mg/dL (NEGATIVE) 07/12/18 20:50 Urine Blood TRACE (NEGATIVE) 07/12/18 20:50 Urine Nitrate NEGATIVE (NEGATIVE) 07/12/18 20:50 Urine Bilirubin NEGATIVE (NEGATIVE) 07/12/18 20:50 Urine Urobilinogen 0.2 E.U./dL (0.2 - 1.0) 07/12/18 20:50 Ur Leukocyte Esterase LARGE (NEGATIVE) H 07/12/18 20:50 Urine RBC 2-5 /hpf (0-5) 07/12/18 20:50 Urine WBC >100 /hpf (0-5) H 07/12/18 20:50 Ur Epithelial Cells MODERATE /lpf (FEW) 07/12/18 20:50 Urine Bacteria MANY /hpf (NONE SEEN) H 07/12/18 20:50 Amikacin Peak 16.9 ug/mL (20.0-30.0) L 07/19/18 10:15 Amikacin Trough 5.5 ug/mL (1.0-8.0) 07/18/18 18:30 Random Amikacin 12.7 ug/ml (1.0-30.0) 07/22/18 05:55 Random Vancomycin 21.5 ug/mL (5.0-40.0) 07/22/18 05:55 - Physical Exam Vitals and I&O: Vital Signs Temp 98.4 F 07/23/18 12:00 Pulse 83 07/23/18 12:00 Resp 18 07/23/18 12:00 BP 97/62 07/23/18 12:00 Pulse Ox 100 07/23/18 12:00 Intake & Output 07/22/18 07/23/18 07/23/18 18:59 06:59 18:59 Intake Total 100 1100 Output Total 280 Balance 100 820 Weight (lbs) 107.501 kg Intake: Intake, IV Amount 100 1100 D5-0.9%Ns 1,000 ml @ 100 1000 mls/hr IV .Q10H [facility] Rx#: [id number] Tigecycline 50 mg In 100 100 Sodium Chloride 0.9% 100 ml @ 100 mls/hr IV Q12HR [facility] Rx#:[id number] Output: Drainage 200 Sacrum 100 colostomy 100 Urine 80 Other: # Bowel Movements 0 Stool Characteristics Soft Formed Brown Weight Source Bedscale Active Medications: Current Medications Acetaminophen (Tylenol) 650 mg PO Q6H PRN PRN Reason: Pain or Fever >101 Stop: 09/11/18 15:14 Albuterol/Ipratropium (Duoneb Neb) 3 ml HHN Q4HRT PRN PRN Reason: Shortness of Breath or Wheeze Stop: 09/11/18 15:14 Ascorbic Acid (Vitamin C) 500 mg PO DAILY [facility] Stop: 09/12/18 08:59 Last Admin: 07/23/18 08:49 Dose: Not Given Atorvastatin Calcium (Lipitor) 20 mg PO HS [facility] Stop: 09/11/18 20:59 Last Admin: 07/22/18 20:01 Dose: Not Given [place] Oil/[place] Balsam/Trypsin (Venelex) 1 appl TP DAILY [facility] Stop: 09/13/18 08:59 Last Admin: 07/23/18 08:54 Dose: Not Given Dextrose (Glutose 40%) 18.75 gm PO PRN PRN PRN Reason: Blood Glucose less than 70 Stop: 09/11/18 04:10 Docusate Sodium (Colace) 100 mg PO BID [facility] Stop: 09/11/18 16:59 Last Admin: 07/23/18 08:50 Dose: Not Given Famotidine (Pepcid) 20 mg PO DAILY [facility] Stop: 09/12/18 08:59 Last Admin: 07/23/18 08:50 Dose: Not Given Folic Acid (Folate) 1 mg PO DAILY [facility] Stop: 09/12/18 08:59 Last Admin: 07/23/18 08:50 Dose: Not Given Glucagon (Glucagen) 1 mg IM PRN PRN PRN Reason: Blood Glucose less than 70 Stop: 09/11/18 04:10 Heparin Sodium (Porcine) (Heparin) 5,000 units SUBQ Q12HR [facility] Stop: 09/17/18 20:59 Last Admin: 07/23/18 09:52 Dose: 5,000 units Hydromorphone HCl (Dilaudid) 1 mg IVP Q4HR PRN PRN Reason: Pain (Severe) Stop: 09/20/18 20:12 Last Admin: 07/23/18 02:36 Dose: 1 mg Tigecycline 50 mg/ Sodium (Chloride) 100 mls @ 100 mls/hr IV Q12HR [facility] Stop: 07/26/18 08:59 Last Admin: 07/23/18 09:52 Dose: 100 mls/hr Dextrose/Sodium Chloride (D5-0.9%Ns) 1,000 mls @ 100 mls/hr IV .Q10H [facility] Stop: 09/20/18 20:13 Last Admin: 07/23/18 09:54 Dose: 100 mls/hr Amikacin Sulfate 750 mg/ (Dextrose) 103 mls @ 100 mls/hr IV Q24HR [facility] Stop: 09/21/18 17:29 Insulin Aspart (Novolog Insulin Sliding Scale) 0 units SUBQ Q6HR [facility]; Protocol Stop: 09/11/18 05:59 Last Admin: 07/23/18 12:12 Dose: Not Given Lactobacillus Rhamnosus (Culturelle 15b) 1 each PO DAILY [facility] Stop: 09/13/18 13:59 Last Admin: 07/23/18 08:50 Dose: Not Given Levothyroxine Sodium (Synthroid) 0.025 mg PO QDAC [facility] Stop: 09/12/18 07:29 Last Admin: 07/23/18 07:22 Dose: Not Given Meperidine HCl (Demerol) 25 mg IVP Q10M PRN PRN Reason: Pain (Severe) Stop: 07/23/18 18:00 Miscellaneous (Probiotic Screen) 1 ea PRN PRN PRN Reason: PROTOCOL Stop: 09/13/18 11:44 Miscellaneous (Amikacin Iv Per Pharmacy) 1 ea PRN PRN PRN Reason: PROTOCOL Stop: 09/13/18 18:08 Miscellaneous (Vancomycin Iv Per Pharmacy) 1 ea PRN [facility] Stop: 09/14/18 18:59 Oxcarbazepine (Trileptal) 600 mg PO BID [facility] Stop: 09/11/18 16:59 Last Admin: 07/23/18 08:51 Dose: Not Given Risperidone (Risperdal) 2 mg PO HS [facility] Stop: 09/11/18 20:59 Last Admin: 07/22/18 20:01 Dose: Not Given Senna (Senna) 17.2 mg PO BID [facility] Stop: 09/11/18 16:59 Last Admin: 07/23/18 08:51 Dose: Not Given Sevelamer Carbonate (Renvela) 800 mg PO TIDWM [facility] Stop: 09/11/18 16:59 Last Admin: 07/23/18 12:11 Dose: Not Given Vitamin B Complex/Vit C/Folic Acid (Vitamin B Complex W/Vitamin C) 1 tab PO DAILY [facility] Stop: 09/12/18 08:59 Last Admin: 07/23/18 08:52 Dose: Not Given Zinc Sulfate (Zinc Sulfate) 220 mg PO DAILY [facility] Stop: 09/12/18 08:59 Last Admin: 07/23/18 08:54 Dose: Not Given General: Alert, Mild distress HEENT: Atraumatic, EOMI Neck: Supple, +2 carotid pulse wo bruit Cardiovascular: Regular rate, Normal S1, Normal S2 Lungs: Other (scattered rales) Abdomen: Bowel sounds, Soft Extremities: Edema ((+) 2-3 edema), Other ((+) 2 bipedal edema) Neurological: Sensation intact Skin: no Rash Psych/Mental Status: Mood NL - Procedures Procedures: Procedures Procedure Code Date BYPASS DESCENDING COLON TO CUTANEOUS, OPEN APPROACH [id number] 07/12/18 EXCISION OF L LOW LEG SUBCU/FASCIA, OPEN APPROACH [id number] 07/12/18 EXCISION OF SACRUM, OPEN APPROACH [id number] 07/12/18 EXCISION OF SIGMOID COLON, OPEN APPROACH [id number] 07/12/18 RESPIRATORY VENTILATION, LESS THAN 24 CONSECUTIVE HOURS [id number] 07/12/18 Assessment/Plan - Problem List Patient Problems: All Active Problems Anasarca (Acute) R60.1 Anemia (Acute) D64.9 CAD (coronary artery disease) (Acute) I25.10 CHF (congestive heart failure) (Acute) I50.9 CKD (chronic kidney disease) (Acute) N18.9 HTN (hypertension) (Acute) I10 UTI (urinary tract infection) (Acute) sacral stage 4 wound (Acute) - Assessment Assessment: ESRD on HD Hypothyroid Parkinson Ds. Fnc Quad Hep B,C GERD Left Calf ulcer Sacral Decub ulcer stage 4, w/ wound vacuum Cholelithiasis B/L HAP w/ effusions Peripheral edema Left SFV DVT S/P Diverting Colostomy - Plan Plan: Lab - Result Diagrams 07/14/18 05:00 07/14/18 05:00 Current Medications Acetaminophen (Tylenol) 650 mg PO Q6H PRN PRN Reason: Pain or Fever >101 Stop: 09/11/18 15:14 Acetaminophen/Hydrocodone Bitart ([place] 5mg/325mg) 1 tab PO Q6H PRN PRN Reason: Pain (Severe) Stop: 09/11/18 15:14 Albuterol/Ipratropium (Duoneb Neb) 3 ml HHN Q4HRT PRN PRN Reason: Shortness of Breath or Wheeze Stop: 09/11/18 15:14 Ascorbic Acid (Vitamin C) 500 mg PO DAILY [facility] Stop: 09/12/18 08:59 Last Admin: 07/14/18 08:27 Dose: 500 mg Atorvastatin Calcium (Lipitor) 20 mg PO HS [facility] Stop: 09/11/18 20:59 Last Admin: 07/13/18 21:05 Dose: 20 mg Dextrose (D50w) 50 ml IVP PRN PRN PRN Reason: Blood Glucose less than 70 Stop: 09/11/18 04:10 Dextrose (Glutose 40%) 18.75 gm PO PRN PRN PRN Reason: Blood Glucose less than 70 Stop: 09/11/18 04:10 Docusate Sodium (Colace) 100 mg PO BID [facility] Stop: 09/11/18 16:59 Last Admin: 07/14/18 08:27 Dose: 100 mg Famotidine (Pepcid) 20 mg PO DAILY [facility] Stop: 09/12/18 08:59 Last Admin: 07/14/18 08:27 Dose: 20 mg Folic Acid (Folate) 1 mg PO DAILY [facility] Stop: 09/12/18 08:59 Last Admin: 07/14/18 08:27 Dose: 1 mg Glucagon (Glucagen) 1 mg IM PRN PRN PRN Reason: Blood Glucose less than 70 Stop: 09/11/18 04:10 Piperacillin Sod/Tazobactam (Sod 2.25 gm/ Sodium Chloride) 50 mls @ 100 mls/hr IV Q6H [facility] Stop: 09/11/18 05:59 Last Admin: 07/14/18 06:05 Dose: Not Given Dextrose/Sodium Chloride (D5-0.45ns) 1,000 mls @ 50 mls/hr IV .Q20H [facility] Stop: 09/11/18 02:29 Last Admin: 07/13/18 04:03 Dose: 50 mls/hr Insulin Aspart (Novolog Insulin Sliding Scale) 0 units SUBQ Q6HR [facility]; Protocol Stop: 09/11/18 05:59 Last Admin: 07/14/18 06:05 Dose: Not Given Levothyroxine Sodium (Synthroid) 0.025 mg PO QDAC [facility] Stop: 09/12/18 07:29 Last Admin: 07/14/18 06:35 Dose: 0.025 mg Miscellaneous (Vancomycin Iv Per Pharmacy) 1 [facility] PRN PRN PRN Reason: PROTOCOL Stop: 09/10/18 23:40 Oxcarbazepine (Trileptal) 600 mg PO BID [facility] Stop: 09/11/18 16:59 Last Admin: 07/14/18 08:27 Dose: 600 mg Risperidone (Risperdal) 2 mg PO HS [facility] Stop: 09/11/18 20:59 Last Admin: 07/13/18 21:05 Dose: 2 mg Senna (Senna) 17.2 mg PO BID [facility] Stop: 09/11/18 16:59 Last Admin: 07/14/18 08:27 Dose: 17.2 mg Sevelamer Carbonate (Renvela) 800 mg PO TIDWM [facility] Stop: 09/11/18 16:59 Last Admin: 07/14/18 08:27 Dose: 800 mg Temazepam (Restoril) 15 mg PO HS PRN; Protocol PRN Reason: Insomnia Stop: 09/11/18 15:14 Vitamin B Complex/Vit C/Folic Acid (Vitamin B Complex W/Vitamin C) 1 tab PO DAILY [facility] Stop: 09/12/18 08:59 Last Admin: 07/14/18 08:27 Dose: 1 tab Zinc Sulfate (Zinc Sulfate) 220 mg PO DAILY [facility] Stop: 09/12/18 08:59 Last Admin: 07/14/18 08:27 Dose: 220 mg Lab - Result Diagrams 07/23/18 04:45 07/23/18 04:45 Cr. more elevated w/ peripheral edema continue wound care Pt. had diverting colostomy CXR still w/ persistent CHF, congestion: f/u CXR schedule for HD again today Nutritional Asmnt/Malnutr-PDOC - Dietary Evaluation Malnutrition Findings (Please click <Entered> for more info): Nutritional Asmnt/Malnutrition Start: 07/13/18 13: 54 Text: Status: Complete Freq: Protocol: Document 07/13/18 13:56 MMULHERN (Rec: 07/13/18 14:10 [email or web address] [email or web address]- [id number]) Nutritional Asmnt/Malnutrition Patient General Information Nutritional Screening Consult Diagnosis ESRD, anasarca Pertinent Medical Hx/Surgical Hx Seizure, hep C, diabetes, CAD, HTN, CVA, quadreplegia, Parkinsons, ESRD Subjective Information Consult received for "Diabetic ". Per nursing notes, patient receives hemodialysis MWF and patient is non-verbal. Patient with 2+ pitting edema. Current Diet Order/ Nutrition Support Renal diet Patient / S.O Not Indicated Pertinent Medications D50W, D5-0.45NS @50 ml/hr, Glucagon, Novolog Pertinent Labs (07/13) Na 134, BUN 48, Cr 2.9, glucose 41-137, Ca 8.2, BNP 515, albumin 2 Nutritional Hx/Data Height 1.73 m Height (Calculated Centimeters) 172.7 Current Weight (lbs) 113.852 kg Weight (Calculated Kilograms) 113.9 Weight (Calculated Grams) 377232.7 [place] Body Weight 140 % [place] Body Weight 179 Body Mass Index (BMI) 38.1 Recent Weight Change No Weight Status Morbidly Obese GI Symptoms GI Symptoms None Last BM 07/13 x 1 Difficult in: Chewing Food Allergies No Cultural/Ethnic/Church Belief none indicated Usual diet at home unknown Skin Integrity/Comment: Arian 10, ulceration on sacrum, left lower leg, abrasion on L heel, scar on right leg. Current %PO Good (75-100%) Estimated Nutritional Goals BEE in Kcals: Adj wt of IBW Calories/Kcals/Kg 27-32 kcal/kg (using 76.2kg ADj wt) Kcals Calculated ~0655-2372 kcal/day Protein g/k.2-1.5 gm/kg using Adj wt Protein Calculated ~90-115 gm/day Fluid: ml Per MD due to HD Nutritional Problem 2. Problem Problem Altered nutrition related lab values related to Etiology episodes of hypoglycemia, electrolyte imbalance aeb Signs/Symptoms: Na 134, glucose 41-137, Ca 8.2 1. Problem Problem Increased nutrient needs related to Etiology hypermetabolic state, impaired skin integrity aeb Signs/Symptoms: Pt on Hemodialysis and with multiple ulcerations Intervention/Recommendation Comments 1. Continue Renal diet as tolerated by patient. No need for DM restriction at this time due to hypoglycemia. 2. Consider fluid restriction due to HD, hyponatremia and edema. 3. Consider adding Prosource 1 packet with each meal for an additional 45gm protein. Expected Outcomes/Goals Expected Outcomes/Goals Oral intake >75% of meals, weight stable or trend toward ideal body weight, nutrition related labs WNL
[2018-07-23] MEDS ORDERED: Amikacin 1000 mg in D5W 100 mL IV ONE (13:30)
[2018-07-23] MEDS: Albumin 25% 25gm/100mL 25 GM/100 ML BTL IV PRN ×2 (13:44→16:03)
[2018-07-23 13:46] LABS: pH 7.49 (7.35-7.45)
--- NOTE | 2018-07-23 16:30 | Consultation ---
DATE OF CONSULTATION: 07/23/[address] Parkinson. Thank you Dr. Parkinson for this consultation. HISTORY OF PRESENT ILLNESS: This is a 47-year-old female who underwent a debridement surgery, was kept on the ventilator postoperatively. The patient has history of renal failure, long-term resident on dialysis. The patient now is awake, alert. We put her on SIMV earlier that she seems to be tolerating it well. No distress. She denies any history of lung problems. Denies history of smoking. REVIEW OF SYSTEMS: Unable to obtain because of the patient's condition. PAST MEDICAL HISTORY: Hepatitis C, seizures noted, Parkinson's. PHYSICAL EXAMINATION GENERAL: Awake, alert, not in acute distress. VITAL SIGNS: Temperature 98.4, pulse 100, respirations 13, blood pressure is 127/55, and saturation is 100%. HEENT: Atraumatic, normocephalic. Pupils react to light and accommodation. Ears, nose and throat normal. NECK: Supple. No JVD. CHEST: There are good breath sounds bilaterally. No wheezing or crackles. HEART: Regular rate. ABDOMEN: Soft. EXTREMITIES: No edema. LABORATORY DATA AND DIAGNOSTIC DATA: Chest x-ray clear, no infiltrate or congestion. ABGs: pH 7.49, pCO2 of 33, pO2 83, bicarbonate 26, and saturation 97%. WBC 7.6, hemoglobin 9.5, hematocrit 28.8, and platelets is 88. Sodium 137, potassium 3.8, BUN is 11, creatinine 2.3. IMPRESSION: 1. This is a 47-year-old female with respiratory failure, on ventilator postoperatively. Awake, alert, tolerating weaning so far. 2. History of end-stage renal disease, on dialysis. 3. T-BAR trial, extubate if tolerated. 4. We will add nebulized treatment. Thank you very much for this consultation. JOB# [id number] [place]
[2018-07-23 17:10] LABS: pH 7.44 (7.35-7.45)
[2018-07-23] MEDS: Albuterol/Ipratropium Neb 3 ML AERS HHN SCH (19:16)
[2018-07-23] MEDS: Atorvastatin Calcium 10 MG TAB PO SCH (20:34)
[2018-07-24] MEDS: INSULIN ASPART SLIDING SCALE 100 UNITS/ML UNIT SUBQ SCH ×4 (00:25→17:39)
[2018-07-24] MEDS: Albuterol/Ipratropium Neb 3 ML AERS HHN SCH ×4 (00:45→18:58)
[2018-07-24 06:07] LABS: % BASOPHILS 0.2 % (0.0-2.0); LYMPHOCYTE ABSOLUTE 3.1 Th/cmm (1.5-3.0); MEAN CORPUSCULAR HEMOGLOBIN 29.1 pg (27.0-31.0)
[2018-07-24 06:11] LABS: % LYMPHOCYTES 41.9 % (20.0-50.0); % MONOCYTES 13.3 % (2.0-10.0); % NEUTROPHILS 44.6 % (40.0-80.0); HEMATOCRIT 26.4 % (41.0-60); HEMOGLOBIN 8.7 gm/dL (12-16); MEAN CELL VOLUME 88.5 fl (81-100); MEAN CORPUSCULAR HGB CONC 32.9 pg (28.0-36.0); MEAN PLATELET VOLUME 7.2 fl; NEUTROPHILE ABSOLUTE 3.3 Th/cmm (1.8-8.0); PLATELET COUNT 130 Th/cmm (150-400); RED BLOOD COUNT 2.99 Mil/cmm (3.80-5.10); RED CELL DISTRIBUTION WIDTH 16.8 % (11.5-20.0); WHITE BLOOD COUNT 7.4 Th/cmm (4.8-10.8)
[2018-07-24 06:20] LABS: INR 3.01 (0.5-1.4); PROTHROMBIN TIME (TEST) 29.7 SECONDS (9.5-11.5)
[2018-07-24] MEDS: Levothyroxine 0.025 Mg Tab PO SCH (06:34)
--- NOTE | 2018-07-24 08:16 | Infectious Disease Prog Note ---
Infectious Disease Subjective - Review of Systems Service Date: 07/24/18 Subjective: Debridement of sacral wound and diverting colostomy were performed. extubated yesterday. no fever./ Infectious Disease Objective - Results Result Diagrams: 07/24/18 05:50 07/23/18 04:45 Recent Labs: Laboratory Last Values WBC 7.4 Th/cmm (4.8-10.8) 07/24/18 05:50 RBC 2.99 Mil/cmm (3.80-5.10) L 07/24/18 05:50 Hgb 8.7 gm/dL (12-16) L 07/24/18 05:50 Hct 26.4 % (41.0-60) L 07/24/18 05:50 MCV 88.5 fl (81-100) 07/24/18 05:50 MCH 29.1 pg (27.0-31.0) 07/24/18 05:50 MCHC Differential 32.9 pg (28.0-36.0) 07/24/18 05:50 RDW 16.8 % (11.5-20.0) 07/24/18 05:50 Plt Count 130 Th/cmm (150-400) L 07/24/18 05:50 MPV 7.2 fl 07/24/18 05:50 Add Manual Diff YES 07/18/18 09:02 Neutrophils % 44.6 % (40.0-80.0) 07/24/18 05:50 Band Neutrophils % 1 % (0-10) 07/18/18 09:02 Lymphocytes % 41.9 % (20.0-50.0) 07/24/18 05:50 Monocytes % 13.3 % (2.0-10.0) H 07/24/18 05:50 Eosinophils % 0.0 % (0.0-5.0) 07/24/18 05:50 Basophils % 0.2 % (0.0-2.0) 07/24/18 05:50 Neutrophils (Manual) 52 % (40-80) 07/18/18 09:02 Lymphocytes 36 % (20-50) 07/18/18 09:02 Monocytes 11 % (2-10) H 07/18/18 09:02 Eosinophils 0 % (0-5) 07/18/18 09:02 Basophils 0 % (0-3) 07/18/18 09:02 Platelet Estimate DECREASED PLATELETS (NORMAL) 07/18/18 09:02 PT 29.7 SECONDS (9.5-11.5) H 07/24/18 05:50 INR 3.01 (0.5-1.4) H 07/24/18 05:50 PTT (Actin FS) 43.0 SECONDS (26.0-38.0) H 07/20/18 08:08 Specimen Source Arterial 07/23/18 17:00 Sample Site LB 07/23/18 17:00 pH 7.44 (7.35-7.45) 07/23/18 17:00 pCO2 44.0 mmHg (35.0-45.0) 07/23/18 17:00 pO2 86.0 mmHg (80.0-100.0) 07/23/18 17:00 HCO3 28.9 mEq/L (20.0-26.0) H 07/23/18 17:00 Base Excess 5.1 mEq/L (-3.0-3.0) H 07/23/18 17:00 O2 Saturation 97.0 % (92.0-100.0) 07/23/18 17:00 [place] Test NA 07/23/18 17:00 Vent Rate NA 07/23/18 17:00 Inspired O2 40 07/23/18 17:00 Tidal Volume NA 07/23/18 17:00 PEEP NA 07/23/18 17:00 Pressure (ins/psv/peep) NA 07/23/18 17:00 Critical Value E.QUINTEROS 07/23/18 17:00 Sodium 137 mEq/L (136-145) 07/23/18 04:45 Potassium 3.8 mEq/L (3.5-5.1) 07/23/18 04:45 Chloride 107 mEq/L (98-107) 07/23/18 04:45 Carbon Dioxide 20.1 mEq/L (21.0-31.0) L 07/23/18 04:45 Anion Gap 13.7 (7.0-16.0) 07/23/18 04:45 BUN 11 mg/dL (7-25) 07/23/18 04:45 Creatinine 2.3 mg/dL (0.6-1.2) H 07/23/18 04:45 Est GFR ( Amer) 29.0 ml/min (>90) 07/23/18 04:45 Est GFR (Non-Af Amer) 24.0 ml/min 07/23/18 04:45 BUN/Creatinine Ratio 4.8 07/23/18 04:45 Glucose 219 mg/dL (70-105) H 07/23/18 04:45 POC Glucose 190 MG/DL (70 - 105) H 07/24/18 05:25 Whole Bld Lactic Acid 1.29 mmol/L (0.60-1.99) 07/12/18 20:50 Calcium 8.2 mg/dL (8.6-10.3) L 07/23/18 04:45 Magnesium 1.6 mg/dL (1.9-2.7) L 07/21/18 05:00 Total Bilirubin 0.3 mg/dL (0.3-1.0) 07/18/18 05:20 AST 18 U/L (13-39) 07/18/18 05:20 ALT 7 U/L (7-52) 07/18/18 05:20 Alkaline Phosphatase 80 U/L (34-104) 07/18/18 05:20 Creatine Kinase 20 U/L (30-223) L 07/12/18 20:50 Troponin I 0.49 ng/mL (0.01-0.05) H* 07/13/18 15:20 B-Natriuretic Peptide 515.0 pg/mL (5.0-100.0) H 07/13/18 04:00 Total Protein 4.0 gm/dL (6.0-8.3) L 07/18/18 05:20 Albumin < 1.5 gm/dL (3.7-5.3) L 07/18/18 05:20 Globulin 2.5 gm/dL 07/18/18 05:20 Albumin/Globulin Ratio 0.6 (1.0-1.8) L 07/18/18 05:20 Triglycerides 53 mg/dL (<150) 07/13/18 04:00 Cholesterol 41 mg/dL (<200) 07/13/18 04:00 LDL Cholesterol Direct 11 mg/dL (75-193) L 07/13/18 04:00 HDL Cholesterol 24 mg/dL (23-92) 07/13/18 04:00 TSH 1.21 uIU/ml (0.34-5.60) 07/13/18 04:00 Urine Source [place] 07/12/18 20:50 Urine Color YELLOW 07/12/18 20:50 Urine Clarity CLOUDY (CLEAR) H 07/12/18 20:50 Urine pH 8.5 (4.6 - 8.0) 07/12/18 20:50 Ur Specific [place] 1.015 (1.005-1.030) 07/12/18 20:50 Urine Protein 100 mg/dL (NEGATIVE) H 07/12/18 20:50 Urine Glucose (UA) NEGATIVE mg/dL (NEGATIVE) 07/12/18 20:50 Urine Ketones NEGATIVE mg/dL (NEGATIVE) 07/12/18 20:50 Urine Blood TRACE (NEGATIVE) 07/12/18 20:50 Urine Nitrate NEGATIVE (NEGATIVE) 07/12/18 20:50 Urine Bilirubin NEGATIVE (NEGATIVE) 07/12/18 20:50 Urine Urobilinogen 0.2 E.U./dL (0.2 - 1.0) 07/12/18 20:50 Ur Leukocyte Esterase LARGE (NEGATIVE) H 07/12/18 20:50 Urine RBC 2-5 /hpf (0-5) 07/12/18 20:50 Urine WBC >100 /hpf (0-5) H 07/12/18 20:50 Ur Epithelial Cells MODERATE /lpf (FEW) 07/12/18 20:50 Urine Bacteria MANY /hpf (NONE SEEN) H 07/12/18 20:50 Amikacin Peak 16.9 ug/mL (20.0-30.0) L 07/19/18 10:15 Amikacin Trough 5.5 ug/mL (1.0-8.0) 07/18/18 18:30 Random Amikacin 12.7 ug/ml (1.0-30.0) 07/22/18 05:55 Random Vancomycin 25.5 ug/mL (5.0-40.0) 07/24/18 05:50 - Physical Exam Vitals and I&O: Vital Signs Temp 98.3 F 07/24/18 06:00 Pulse 95 07/24/18 07:00 Resp 13 07/24/18 07:00 BP 134/38 07/24/18 07:00 Pulse Ox 100 07/24/18 07:00 Intake & Output 07/23/18 07/24/18 07/24/18 18:59 06:59 18:59 Intake Total 1177.335 347.145 Output Total 3270 170 Balance -2092.665 177.145 Weight (lbs) 64.773 kg 109.769 kg Intake: Intake, IV Amount 1177.335 347.145 Albumin 25% 25gm/100mL 25 200 gm In 100 ml @ 50 mls/hr IV PRN PRN Rx#:[id number] Amikacin 750 mg In 103 Dextrose 5% 100 ml @ 100 mls/hr IV ONCE ONE Rx#: [id number] D5-0.9%Ns 1,000 ml @ 100 866.667 mls/hr IV .Q10H VIKTORIA Rx#: [id number] Norepinephrine 4 mg In 10.668 144.145 Dextrose 5% 250 ml @ 10 MCG/MIN 38.1 mls/hr IV TITR PRN Rx#:[id number] Tigecycline 50 mg In 100 100 Sodium Chloride 0.9% 100 ml @ 100 mls/hr IV Q12HR VIKTORIA Rx#:[id number] Output: Drainage 170 150 Sacrum 50 100 colostomy 120 50 Urine 100 20 Hemodialysis 3000 Other: # Bowel Movements 0 Weight Source Bedscale Bedscale Active Medications: Current Medications Acetaminophen (Tylenol) 650 mg PO Q6H PRN PRN Reason: Pain or Fever >101 Stop: 09/11/18 15:14 Albuterol/Ipratropium (Duoneb Neb) 3 ml HHN Q4HRT PRN PRN Reason: Shortness of Breath or Wheeze Stop: 09/11/18 15:14 Albuterol/Ipratropium (Duoneb Neb) 3 ml HHN Q6HRT VIKTORIA Stop: 09/21/18 18:59 Last Admin: 07/24/18 06:58 Dose: 3 ml Ascorbic Acid (Vitamin C) 500 mg PO DAILY VIKTORIA Stop: 09/12/18 08:59 Last Admin: 07/23/18 08:49 Dose: Not Given Atorvastatin Calcium (Lipitor) 20 mg PO HS VIKTORIA Stop: 09/11/18 20:59 Last Admin: 07/23/18 20:34 Dose: Not Given [place] Oil/[place] Balsam/Trypsin (Venelex) 1 appl TP DAILY VIKTORIA Stop: 09/13/18 08:59 Last Admin: 07/23/18 08:54 Dose: Not Given Dextrose (Glutose 40%) 18.75 gm PO PRN PRN PRN Reason: Blood Glucose less than 70 Stop: 09/11/18 04:10 Docusate Sodium (Colace) 100 mg PO BID [facility] Stop: 09/11/18 16:59 Last Admin: 07/23/18 16:49 Dose: Not Given Famotidine (Pepcid) 20 mg PO DAILY [facility] Stop: 09/12/18 08:59 Last Admin: 07/23/18 08:50 Dose: Not Given Folic Acid (Folate) 1 mg PO DAILY [facility] Stop: 09/12/18 08:59 Last Admin: 07/23/18 08:50 Dose: Not Given Glucagon (Glucagen) 1 mg IM PRN PRN PRN Reason: Blood Glucose less than 70 Stop: 09/11/18 04:10 Heparin Sodium (Porcine) (Heparin) 5,000 units SUBQ Q12HR [facility] Stop: 09/17/18 20:59 Last Admin: 07/23/18 21:31 Dose: 5,000 units Hydromorphone HCl (Dilaudid) 1 mg IVP Q4HR PRN PRN Reason: Pain (Severe) Stop: 09/20/18 20:12 Last Admin: 07/23/18 02:36 Dose: 1 mg Tigecycline 50 mg/ Sodium (Chloride) 100 mls @ 100 mls/hr IV Q12HR [facility] Stop: 07/26/18 08:59 Last Infusion: 07/23/18 22:35 Dose: Infused Dextrose/Sodium Chloride (D5-0.9%Ns) 1,000 mls @ 100 mls/hr IV .Q10H [facility] Stop: 09/20/18 20:13 Last Admin: 07/23/18 18:34 Dose: 100 mls/hr Norepinephrine Bitartrate 4 mg (/ Dextrose) 254 mls @ 38.1 mls/hr IV TITR PRN; Protocol PRN Reason: BP MAINTENANCE (PER PROTOCOL) Stop: 09/21/18 14:18 Last Titration: 07/24/18 04:10 Dose: 0 mcg/min, 0 mls/hr Insulin Aspart (Novolog Insulin Sliding Scale) 0 units SUBQ Q6HR [facility]; Protocol Stop: 09/11/18 05:59 Last Admin: 07/24/18 06:32 Dose: 2 units Lactobacillus Rhamnosus (Culturelle 15b) 1 each PO DAILY VIKTORIA Stop: 09/13/18 13:59 Last Admin: 07/23/18 08:50 Dose: Not Given Levothyroxine Sodium (Synthroid) 0.025 mg PO QDAC VIKTORIA Stop: 09/12/18 07:29 Last Admin: 07/24/18 06:34 Dose: Not Given Miscellaneous (Probiotic Screen) 1 ea PRN PRN PRN Reason: PROTOCOL Stop: 09/13/18 11:44 Miscellaneous (Amikacin Iv Per Pharmacy) 1 [facility] PRN PRN PRN Reason: PROTOCOL Stop: 09/13/18 18:08 Oxcarbazepine (Trileptal) 600 mg PO BID VIKTORIA Stop: 09/11/18 16:59 Last Admin: 07/23/18 16:49 Dose: Not Given Risperidone (Risperdal) 2 mg PO HS VIKTORIA Stop: 09/11/18 20:59 Last Admin: 07/23/18 20:34 Dose: Not Given Senna (Senna) 17.2 mg PO BID VIKTORIA Stop: 09/11/18 16:59 Last Admin: 07/23/18 16:49 Dose: Not Given Sevelamer Carbonate (Renvela) 800 mg PO TIDWM VIKTORIA Stop: 09/11/18 16:59 Last Admin: 07/23/18 16:49 Dose: Not Given Vitamin B Complex/Vit C/Folic Acid (Vitamin B Complex W/Vitamin C) 1 tab PO DAILY VIKTORIA Stop: 09/12/18 08:59 Last Admin: 07/23/18 08:52 Dose: Not Given Zinc Sulfate (Zinc Sulfate) 220 mg PO DAILY VIKTORIA Stop: 09/12/18 08:59 Last Admin: 07/23/18 08:54 Dose: Not Given General: no acute distress, well developed, well nourished HEENT: atraumatic, normocephalic, PERRLA, EOMI Neck: supple, no thyromegaly Cardiovascular: S1S2, regular Lungs: clear to auscultation bilaterally, clear to percussion Abdomen: soft, no tender, no distended, no mass Extremities: other (Colostomy), no cyanosis, no clubbing, no edema Neurological: awake, alert, oriented Skin: no other (sacral wound, ) - Procedures Procedures: Procedures Procedure Code Date BYPASS DESCENDING COLON TO CUTANEOUS, OPEN APPROACH [id number] 07/12/18 EXCISION OF L LOW LEG SUBCU/FASCIA, OPEN APPROACH [id number] 07/12/18 EXCISION OF SACRUM, OPEN APPROACH [id number] 07/12/18 EXCISION OF SIGMOID COLON, OPEN APPROACH [id number] 07/12/18 RESPIRATORY VENTILATION, LESS THAN 24 CONSECUTIVE HOURS [id number] 07/12/18 Infectious Disease Assmt/Plan - Problem List Patient Problems: All Active Problems Anasarca (Acute) R60.1 Anemia (Acute) D64.9 CAD (coronary artery disease) (Acute) I25.10 CHF (congestive heart failure) (Acute) I50.9 CKD (chronic kidney disease) (Acute) N18.9 HTN (hypertension) (Acute) I10 UTI (urinary tract infection) (Acute) sacral stage 4 wound (Acute) - Assessment Assessment: 1. UTI 2. Staph CN in blood contaminant. 3. Hypoglycemia. 4. Diabetes mellitus type 1 with episodes of hypoglycemia. 5. Hypertension. 6. Anemia of chronic disease. 7. Coronary artery disease, 8. CHF.. 9. Anasarca 10. 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 11. sacral stage 4 wound. No evidence of osteimyelitis, 12. S/p Diverting colostomy. - Plan Plan: Continue amikacin and tygacil for 7 days. wound care. Nutritional Asmnt/Malnutr-PDOC - Dietary Evaluation Malnutrition Findings (Please click <Entered> for more info): Nutritional Asmnt/Malnutrition Start: 07/13/18 13: 54 Text: Status: Complete Freq: Protocol: Document 07/13/18 13:56 MMULHERN (Rec: 07/13/18 14:10 SRIULNACHO NASH- [id number]) Nutritional Asmnt/Malnutrition Patient General Information Nutritional Screening Consult Diagnosis ESRD, anasarca Pertinent Medical Hx/Surgical Hx Seizure, hep C, diabetes, CAD, HTN, CVA, quadreplegia, Parkinsons, ESRD Subjective Information Consult received for "Diabetic ". Per nursing notes, patient receives hemodialysis MWF and patient is non-verbal. Patient with 2+ pitting edema. Current Diet Order/ Nutrition Support Renal diet Patient / S.O Not Indicated Pertinent Medications D50W, D5-0.45NS @50 ml/hr, Glucagon, Novolog Pertinent Labs (07/13) Na 134, BUN 48, Cr 2.9, glucose 41-137, Ca 8.2, BNP 515, albumin 2 Nutritional Hx/Data Height 1.73 m Height (Calculated Centimeters) 172.7 Current Weight (lbs) 113.852 kg Weight (Calculated Kilograms) 113.9 Weight (Calculated Grams) 696403.7 [place] Body Weight 140 % [place] Body Weight 179 Body Mass Index (BMI) 38.1 Recent Weight Change No Weight Status Morbidly Obese GI Symptoms GI Symptoms None Last BM 07/13 x 1 Difficult in: Chewing Food Allergies No Cultural/Ethnic/Gnosticist Belief none indicated Usual diet at home unknown Skin Integrity/Comment: Arian 10, ulceration on sacrum, left lower leg, abrasion on L heel, scar on right leg. Current %PO Good (75-100%) Estimated Nutritional Goals BEE in Kcals: Adj wt of IBW Calories/Kcals/Kg 27-32 kcal/kg (using 76.2kg ADj wt) Kcals Calculated ~8715-9730 kcal/day Protein g/k.2-1.5 gm/kg using Adj wt Protein Calculated ~90-115 gm/day Fluid: ml Per MD due to HD Nutritional Problem 2. Problem Problem Altered nutrition related lab values related to Etiology episodes of hypoglycemia, electrolyte imbalance aeb Signs/Symptoms: Na 134, glucose 41-137, Ca 8.2 1. Problem Problem Increased nutrient needs related to Etiology hypermetabolic state, impaired skin integrity aeb Signs/Symptoms: Pt on Hemodialysis and with multiple ulcerations Intervention/Recommendation Comments 1. Continue Renal diet as tolerated by patient. No need for DM restriction at this time due to hypoglycemia. 2. Consider fluid restriction due to HD, hyponatremia and edema. 3. Consider adding Prosource 1 packet with each meal for an additional 45gm protein. Expected Outcomes/Goals Expected Outcomes/Goals Oral intake >75% of meals, weight stable or trend toward ideal body weight, nutrition related labs WNL
--- NOTE | 2018-07-24 08:54 | General Progress Note ---
Subjective - Review of Systems Service Date: 07/24/18 Events since last encounter: start clear liquids, Ensure bid Objective - Results Result Diagrams: 07/24/18 05:50 07/23/18 04:45 Recent Labs: Laboratory Last Values WBC 7.4 Th/cmm (4.8-10.8) 07/24/18 05:50 RBC 2.99 Mil/cmm (3.80-5.10) L 07/24/18 05:50 Hgb 8.7 gm/dL (12-16) L 07/24/18 05:50 Hct 26.4 % (41.0-60) L 07/24/18 05:50 MCV 88.5 fl (81-100) 07/24/18 05:50 MCH 29.1 pg (27.0-31.0) 07/24/18 05:50 MCHC Differential 32.9 pg (28.0-36.0) 07/24/18 05:50 RDW 16.8 % (11.5-20.0) 07/24/18 05:50 Plt Count 130 Th/cmm (150-400) L 07/24/18 05:50 MPV 7.2 fl 07/24/18 05:50 Add Manual Diff YES 07/18/18 09:02 Neutrophils % 44.6 % (40.0-80.0) 07/24/18 05:50 Band Neutrophils % 1 % (0-10) 07/18/18 09:02 Lymphocytes % 41.9 % (20.0-50.0) 07/24/18 05:50 Monocytes % 13.3 % (2.0-10.0) H 07/24/18 05:50 Eosinophils % 0.0 % (0.0-5.0) 07/24/18 05:50 Basophils % 0.2 % (0.0-2.0) 07/24/18 05:50 Neutrophils (Manual) 52 % (40-80) 07/18/18 09:02 Lymphocytes 36 % (20-50) 07/18/18 09:02 Monocytes 11 % (2-10) H 07/18/18 09:02 Eosinophils 0 % (0-5) 07/18/18 09:02 Basophils 0 % (0-3) 07/18/18 09:02 Platelet Estimate DECREASED PLATELETS (NORMAL) 07/18/18 09:02 PT 29.7 SECONDS (9.5-11.5) H 07/24/18 05:50 INR 3.01 (0.5-1.4) H 07/24/18 05:50 PTT (Actin FS) 43.0 SECONDS (26.0-38.0) H 07/20/18 08:08 Specimen Source Arterial 07/23/18 17:00 Sample Site LB 07/23/18 17:00 pH 7.44 (7.35-7.45) 07/23/18 17:00 pCO2 44.0 mmHg (35.0-45.0) 07/23/18 17:00 pO2 86.0 mmHg (80.0-100.0) 07/23/18 17:00 HCO3 28.9 mEq/L (20.0-26.0) H 07/23/18 17:00 Base Excess 5.1 mEq/L (-3.0-3.0) H 07/23/18 17:00 O2 Saturation 97.0 % (92.0-100.0) 07/23/18 17:00 [place] Test NA 07/23/18 17:00 Vent Rate NA 07/23/18 17:00 Inspired O2 40 07/23/18 17:00 Tidal Volume NA 07/23/18 17:00 PEEP NA 07/23/18 17:00 Pressure (ins/psv/peep) NA 07/23/18 17:00 Critical Value E.QUINTEROS 07/23/18 17:00 Sodium 137 mEq/L (136-145) 07/23/18 04:45 Potassium 3.8 mEq/L (3.5-5.1) 07/23/18 04:45 Chloride 107 mEq/L (98-107) 07/23/18 04:45 Carbon Dioxide 20.1 mEq/L (21.0-31.0) L 07/23/18 04:45 Anion Gap 13.7 (7.0-16.0) 07/23/18 04:45 BUN 11 mg/dL (7-25) 07/23/18 04:45 Creatinine 2.3 mg/dL (0.6-1.2) H 07/23/18 04:45 Est GFR ( Amer) 29.0 ml/min (>90) 07/23/18 04:45 Est GFR (Non-Af Amer) 24.0 ml/min 07/23/18 04:45 BUN/Creatinine Ratio 4.8 07/23/18 04:45 Glucose 219 mg/dL (70-105) H 07/23/18 04:45 POC Glucose 190 MG/DL (70 - 105) H 07/24/18 05:25 Whole Bld Lactic Acid 1.29 mmol/L (0.60-1.99) 07/12/18 20:50 Calcium 8.2 mg/dL (8.6-10.3) L 07/23/18 04:45 Magnesium 1.6 mg/dL (1.9-2.7) L 07/21/18 05:00 Total Bilirubin 0.3 mg/dL (0.3-1.0) 07/18/18 05:20 AST 18 U/L (13-39) 07/18/18 05:20 ALT 7 U/L (7-52) 07/18/18 05:20 Alkaline Phosphatase 80 U/L (34-104) 07/18/18 05:20 Creatine Kinase 20 U/L (30-223) L 07/12/18 20:50 Troponin I 0.49 ng/mL (0.01-0.05) H* 07/13/18 15:20 B-Natriuretic Peptide 515.0 pg/mL (5.0-100.0) H 07/13/18 04:00 Total Protein 4.0 gm/dL (6.0-8.3) L 07/18/18 05:20 Albumin < 1.5 gm/dL (3.7-5.3) L 07/18/18 05:20 Globulin 2.5 gm/dL 07/18/18 05:20 Albumin/Globulin Ratio 0.6 (1.0-1.8) L 07/18/18 05:20 Triglycerides 53 mg/dL (<150) 07/13/18 04:00 Cholesterol 41 mg/dL (<200) 07/13/18 04:00 LDL Cholesterol Direct 11 mg/dL (75-193) L 07/13/18 04:00 HDL Cholesterol 24 mg/dL (23-92) 07/13/18 04:00 TSH 1.21 uIU/ml (0.34-5.60) 07/13/18 04:00 Urine Source SANCHEZ [place] 07/12/18 20:50 Urine Color YELLOW 07/12/18 20:50 Urine Clarity CLOUDY (CLEAR) H 07/12/18 20:50 Urine pH 8.5 (4.6 - 8.0) 07/12/18 20:50 Ur Specific Hume 1.015 (1.005-1.030) 07/12/18 20:50 Urine Protein 100 mg/dL (NEGATIVE) H 07/12/18 20:50 Urine Glucose (UA) NEGATIVE mg/dL (NEGATIVE) 07/12/18 20:50 Urine Ketones NEGATIVE mg/dL (NEGATIVE) 07/12/18 20:50 Urine Blood TRACE (NEGATIVE) 07/12/18 20:50 Urine Nitrate NEGATIVE (NEGATIVE) 07/12/18 20:50 Urine Bilirubin NEGATIVE (NEGATIVE) 07/12/18 20:50 Urine Urobilinogen 0.2 E.U./dL (0.2 - 1.0) 07/12/18 20:50 Ur Leukocyte Esterase LARGE (NEGATIVE) H 07/12/18 20:50 Urine RBC 2-5 /hpf (0-5) 07/12/18 20:50 Urine WBC >100 /hpf (0-5) H 07/12/18 20:50 Ur Epithelial Cells MODERATE /lpf (FEW) 07/12/18 20:50 Urine Bacteria MANY /hpf (NONE SEEN) H 07/12/18 20:50 Amikacin Peak 16.9 ug/mL (20.0-30.0) L 07/19/18 10:15 Amikacin Trough 5.5 ug/mL (1.0-8.0) 07/18/18 18:30 Random Amikacin 12.7 ug/ml (1.0-30.0) 07/22/18 05:55 Random Vancomycin 25.5 ug/mL (5.0-40.0) 07/24/18 05:50 - Physical Exam Vitals and I&O: Vital Signs Temp 98.3 F 07/24/18 06:00 Pulse 95 07/24/18 07:00 Resp 13 07/24/18 07:00 BP 134/38 07/24/18 07:00 Pulse Ox 100 07/24/18 07:00 Intake & Output 07/23/18 07/24/18 07/24/18 18:59 06:59 18:59 Intake Total 1177.335 347.145 Output Total 3270 170 Balance -2092.665 177.145 Weight (lbs) 64.773 kg 109.769 kg Intake: Intake, IV Amount 1177.335 347.145 Albumin 25% 25gm/100mL 25 200 gm In 100 ml @ 50 mls/hr IV PRN PRN Rx#:[id number] Amikacin 750 mg In 103 Dextrose 5% 100 ml @ 100 mls/hr IV ONCE ONE Rx#: [id number] D5-0.9%Ns 1,000 ml @ 100 866.667 mls/hr IV .Q10H VIKTORIA Rx#: [id number] Norepinephrine 4 mg In 10.668 144.145 Dextrose 5% 250 ml @ 10 MCG/MIN 38.1 mls/hr IV TITR PRN Rx#:[id number] Tigecycline 50 mg In 100 100 Sodium Chloride 0.9% 100 ml @ 100 mls/hr IV Q12HR VIKTORIA Rx#:[id number] Output: Drainage 170 150 Sacrum 50 100 colostomy 120 50 Urine 100 20 Hemodialysis 3000 Other: # Bowel Movements 0 Weight Source Bedscale Bedscale Active Medications: Current Medications Acetaminophen (Tylenol) 650 mg PO Q6H PRN PRN Reason: Pain or Fever >101 Stop: 09/11/18 15:14 Albuterol/Ipratropium (Duoneb Neb) 3 ml HHN Q4HRT PRN PRN Reason: Shortness of Breath or Wheeze Stop: 09/11/18 15:14 Albuterol/Ipratropium (Duoneb Neb) 3 ml HHN Q6HRT VIKTORIA Stop: 09/21/18 18:59 Last Admin: 07/24/18 06:58 Dose: 3 ml Ascorbic Acid (Vitamin C) 500 mg PO DAILY VIKTORIA Stop: 09/12/18 08:59 Last Admin: 07/23/18 08:49 Dose: Not Given Atorvastatin Calcium (Lipitor) 20 mg PO HS VIKTORIA Stop: 09/11/18 20:59 Last Admin: 07/23/18 20:34 Dose: Not Given Baldwin Oil/Mosotho Balsam/Trypsin (Venelex) 1 appl TP DAILY VIKTORIA Stop: 09/13/18 08:59 Last Admin: 07/23/18 08:54 Dose: Not Given Dextrose (Glutose 40%) 18.75 gm PO PRN PRN PRN Reason: Blood Glucose less than 70 Stop: 09/11/18 04:10 Docusate Sodium (Colace) 100 mg PO BID [facility] Stop: 09/11/18 16:59 Last Admin: 07/23/18 16:49 Dose: Not Given Famotidine (Pepcid) 20 mg PO DAILY [facility] Stop: 09/12/18 08:59 Last Admin: 07/23/18 08:50 Dose: Not Given Folic Acid (Folate) 1 mg PO DAILY [facility] Stop: 09/12/18 08:59 Last Admin: 07/23/18 08:50 Dose: Not Given Glucagon (Glucagen) 1 mg IM PRN PRN PRN Reason: Blood Glucose less than 70 Stop: 09/11/18 04:10 Heparin Sodium (Porcine) (Heparin) 5,000 units SUBQ Q12HR [facility] Stop: 09/17/18 20:59 Last Admin: 07/23/18 21:31 Dose: 5,000 units Hydromorphone HCl (Dilaudid) 1 mg IVP Q4HR PRN PRN Reason: Pain (Severe) Stop: 09/20/18 20:12 Last Admin: 07/23/18 02:36 Dose: 1 mg Tigecycline 50 mg/ Sodium (Chloride) 100 mls @ 100 mls/hr IV Q12HR [facility] Stop: 07/26/18 08:59 Last Infusion: 07/23/18 22:35 Dose: Infused Dextrose/Sodium Chloride (D5-0.9%Ns) 1,000 mls @ 100 mls/hr IV .Q10H [facility] Stop: 09/20/18 20:13 Last Admin: 07/23/18 18:34 Dose: 100 mls/hr Norepinephrine Bitartrate 4 mg (/ Dextrose) 254 mls @ 38.1 mls/hr IV TITR PRN; Protocol PRN Reason: BP MAINTENANCE (PER PROTOCOL) Stop: 09/21/18 14:18 Last Titration: 07/24/18 04:10 Dose: 0 mcg/min, 0 mls/hr Insulin Aspart (Novolog Insulin Sliding Scale) 0 units SUBQ Q6HR [facility]; Protocol Stop: 09/11/18 05:59 Last Admin: 07/24/18 06:32 Dose: 2 units Lactobacillus Rhamnosus (Culturelle 15b) 1 each PO DAILY [facility] Stop: 09/13/18 13:59 Last Admin: 07/23/18 08:50 Dose: Not Given Levothyroxine Sodium (Synthroid) 0.025 mg PO QDAC [facility] Stop: 09/12/18 07:29 Last Admin: 07/24/18 06:34 Dose: Not Given Miscellaneous (Probiotic Screen) 1 [facility] PRN PRN PRN Reason: PROTOCOL Stop: 09/13/18 11:44 Miscellaneous (Amikacin Iv Per Pharmacy) 1 [facility] PRN PRN PRN Reason: PROTOCOL Stop: 09/13/18 18:08 Oxcarbazepine (Trileptal) 600 mg PO BID [facility] Stop: 09/11/18 16:59 Last Admin: 07/23/18 16:49 Dose: Not Given Risperidone (Risperdal) 2 mg PO HS [facility] Stop: 09/11/18 20:59 Last Admin: 07/23/18 20:34 Dose: Not Given Senna (Senna) 17.2 mg PO BID [facility] Stop: 09/11/18 16:59 Last Admin: 07/23/18 16:49 Dose: Not Given Sevelamer Carbonate (Renvela) 800 mg PO TIDWM [facility] Stop: 09/11/18 16:59 Last Admin: 07/23/18 16:49 Dose: Not Given Vitamin B Complex/Vit C/Folic Acid (Vitamin B Complex W/Vitamin C) 1 tab PO DAILY [facility] Stop: 09/12/18 08:59 Last Admin: 07/23/18 08:52 Dose: Not Given Zinc Sulfate (Zinc Sulfate) 220 mg PO DAILY [facility] Stop: 09/12/18 08:59 Last Admin: 07/23/18 08:54 Dose: Not Given General: Alert, Mild distress HEENT: Atraumatic, EOMI Neck: Supple, +2 carotid pulse wo bruit Cardiovascular: Regular rate, Normal S1, Normal S2 Lungs: Other (scattered rales) Abdomen: Bowel sounds, Soft Extremities: Edema ((+) 2-3 edema), Other ((+) 2 bipedal edema) Neurological: Sensation intact Skin: no Rash Psych/Mental Status: Mood NL - Procedures Procedures: Procedures Procedure Code Date BYPASS DESCENDING COLON TO CUTANEOUS, OPEN APPROACH [id number] 07/12/18 EXCISION OF L LOW LEG SUBCU/FASCIA, OPEN APPROACH [id number] 07/12/18 EXCISION OF SACRUM, OPEN APPROACH [id number] 07/12/18 EXCISION OF SIGMOID COLON, OPEN APPROACH [id number] 07/12/18 RESPIRATORY VENTILATION, LESS THAN 24 CONSECUTIVE HOURS [id number] 07/12/18 Assessment/Plan - Problem List Patient Problems: All Active Problems Anasarca (Acute) R60.1 Anemia (Acute) D64.9 CAD (coronary artery disease) (Acute) I25.10 CHF (congestive heart failure) (Acute) I50.9 CKD (chronic kidney disease) (Acute) N18.9 HTN (hypertension) (Acute) I10 UTI (urinary tract infection) (Acute) sacral stage 4 wound (Acute) Nutritional Asmnt/Malnutr-PDOC - Dietary Evaluation Malnutrition Findings (Please click <Entered> for more info): Nutritional Asmnt/Malnutrition Start: 07/13/18 13: 54 Text: Status: Complete Freq: Protocol: Document 07/13/18 13:56 MMULHERN (Rec: 07/13/18 14:10 MMULHERN [id number]) Nutritional Asmnt/Malnutrition Patient General Information Nutritional Screening Consult Diagnosis ESRD, anasarca Pertinent Medical Hx/Surgical Hx Seizure, hep C, diabetes, CAD, HTN, CVA, quadreplegia, Parkinsons, ESRD Subjective Information Consult received for "Diabetic ". Per nursing notes, patient receives hemodialysis MWF and patient is non-verbal. Patient with 2+ pitting edema. Current Diet Order/ Nutrition Support Renal diet Patient / S.O Not Indicated Pertinent Medications D50W, D5-0.45NS @50 ml/hr, Glucagon, Novolog Pertinent Labs (07/13) Na 134, BUN 48, Cr 2.9, glucose 41-137, Ca 8.2, BNP 515, albumin 2 Nutritional Hx/Data Height 1.73 m Height (Calculated Centimeters) 172.7 Current Weight (lbs) 113.852 kg Weight (Calculated Kilograms) 113.9 Weight (Calculated Grams) 961502.7 Taylor Body Weight 140 % Taylor Body Weight 179 Body Mass Index (BMI) 38.1 Recent Weight Change No Weight Status Morbidly Obese GI Symptoms GI Symptoms None Last BM 07/13 x 1 Difficult in: Chewing Food Allergies No Cultural/Ethnic/Zoroastrianism Belief none indicated Usual diet at home unknown Skin Integrity/Comment: Arian 10, ulceration on sacrum, left lower leg, abrasion on L heel, scar on right leg. Current %PO Good (75-100%) Estimated Nutritional Goals BEE in Kcals: Adj wt of IBW Calories/Kcals/Kg 27-32 kcal/kg (using 76.2kg ADj wt) Kcals Calculated ~7278-3587 kcal/day Protein g/k.2-1.5 gm/kg using Adj wt Protein Calculated ~90-115 gm/day Fluid: ml Per MD due to HD Nutritional Problem 2. Problem Problem Altered nutrition related lab values related to Etiology episodes of hypoglycemia, electrolyte imbalance aeb Signs/Symptoms: Na 134, glucose 41-137, Ca 8.2 1. Problem Problem Increased nutrient needs related to Etiology hypermetabolic state, impaired skin integrity aeb Signs/Symptoms: Pt on Hemodialysis and with multiple ulcerations Intervention/Recommendation Comments 1. Continue Renal diet as tolerated by patient. No need for DM restriction at this time due to hypoglycemia. 2. Consider fluid restriction due to HD, hyponatremia and edema. 3. Consider adding Prosource 1 packet with each meal for an additional 45gm protein. Expected Outcomes/Goals Expected Outcomes/Goals Oral intake >75% of meals, weight stable or trend toward ideal body weight, nutrition related labs WNL
[2018-07-24] MEDS: Docusate Sodium 100 mg/10 mL UD PO SCH ×2 (09:54→17:33)
[2018-07-24] MEDS: Lactobacillus Rhamnosus GG 15 Billion CFU CAP.SPRINK PO SCH (09:55)
[2018-07-24] MEDS: Vitamin B Complex w/Vitamin C Tab PO SCH (09:56)
--- NOTE | 2018-07-24 14:46 | General Progress Note ---
Subjective - Review of Systems Service Date: 07/24/18 Subjective: alert, comfortable, on clear liquid Objective - Results Result Diagrams: 07/24/18 05:50 07/23/18 04:45 Recent Labs: Laboratory Last Values WBC 7.4 Th/cmm (4.8-10.8) 07/24/18 05:50 RBC 2.99 Mil/cmm (3.80-5.10) L 07/24/18 05:50 Hgb 8.7 gm/dL (12-16) L 07/24/18 05:50 Hct 26.4 % (41.0-60) L 07/24/18 05:50 MCV 88.5 fl (81-100) 07/24/18 05:50 MCH 29.1 pg (27.0-31.0) 07/24/18 05:50 MCHC Differential 32.9 pg (28.0-36.0) 07/24/18 05:50 RDW 16.8 % (11.5-20.0) 07/24/18 05:50 Plt Count 130 Th/cmm (150-400) L 07/24/18 05:50 MPV 7.2 fl 07/24/18 05:50 Add Manual Diff YES 07/18/18 09:02 Neutrophils % 44.6 % (40.0-80.0) 07/24/18 05:50 Band Neutrophils % 1 % (0-10) 07/18/18 09:02 Lymphocytes % 41.9 % (20.0-50.0) 07/24/18 05:50 Monocytes % 13.3 % (2.0-10.0) H 07/24/18 05:50 Eosinophils % 0.0 % (0.0-5.0) 07/24/18 05:50 Basophils % 0.2 % (0.0-2.0) 07/24/18 05:50 Neutrophils (Manual) 52 % (40-80) 07/18/18 09:02 Lymphocytes 36 % (20-50) 07/18/18 09:02 Monocytes 11 % (2-10) H 07/18/18 09:02 Eosinophils 0 % (0-5) 07/18/18 09:02 Basophils 0 % (0-3) 07/18/18 09:02 Platelet Estimate DECREASED PLATELETS (NORMAL) 07/18/18 09:02 PT 29.7 SECONDS (9.5-11.5) H 07/24/18 05:50 INR 3.01 (0.5-1.4) H 07/24/18 05:50 PTT (Actin FS) 43.0 SECONDS (26.0-38.0) H 07/20/18 08:08 Specimen Source Arterial 07/23/18 17:00 Sample Site LB 07/23/18 17:00 pH 7.44 (7.35-7.45) 07/23/18 17:00 pCO2 44.0 mmHg (35.0-45.0) 07/23/18 17:00 pO2 86.0 mmHg (80.0-100.0) 07/23/18 17:00 HCO3 28.9 mEq/L (20.0-26.0) H 07/23/18 17:00 Base Excess 5.1 mEq/L (-3.0-3.0) H 07/23/18 17:00 O2 Saturation 97.0 % (92.0-100.0) 07/23/18 17:00 [place] Test NA 07/23/18 17:00 Vent Rate NA 07/23/18 17:00 Inspired O2 40 07/23/18 17:00 Tidal Volume NA 07/23/18 17:00 PEEP NA 07/23/18 17:00 Pressure (ins/psv/peep) NA 07/23/18 17:00 Critical Value E.QUINTEROS 07/23/18 17:00 Sodium 137 mEq/L (136-145) 07/23/18 04:45 Potassium 3.8 mEq/L (3.5-5.1) 07/23/18 04:45 Chloride 107 mEq/L (98-107) 07/23/18 04:45 Carbon Dioxide 20.1 mEq/L (21.0-31.0) L 07/23/18 04:45 Anion Gap 13.7 (7.0-16.0) 07/23/18 04:45 BUN 11 mg/dL (7-25) 07/23/18 04:45 Creatinine 2.3 mg/dL (0.6-1.2) H 07/23/18 04:45 Est GFR ( Amer) 29.0 ml/min (>90) 07/23/18 04:45 Est GFR (Non-Af Amer) 24.0 ml/min 07/23/18 04:45 BUN/Creatinine Ratio 4.8 07/23/18 04:45 Glucose 219 mg/dL (70-105) H 07/23/18 04:45 POC Glucose 161 MG/DL (70 - 105) H 07/24/18 12:05 Whole Bld Lactic Acid 1.29 mmol/L (0.60-1.99) 07/12/18 20:50 Calcium 8.2 mg/dL (8.6-10.3) L 07/23/18 04:45 Magnesium 1.6 mg/dL (1.9-2.7) L 07/21/18 05:00 Total Bilirubin 0.3 mg/dL (0.3-1.0) 07/18/18 05:20 AST 18 U/L (13-39) 07/18/18 05:20 ALT 7 U/L (7-52) 07/18/18 05:20 Alkaline Phosphatase 80 U/L (34-104) 07/18/18 05:20 Creatine Kinase 20 U/L (30-223) L 07/12/18 20:50 Troponin I 0.49 ng/mL (0.01-0.05) H* 07/13/18 15:20 B-Natriuretic Peptide 515.0 pg/mL (5.0-100.0) H 07/13/18 04:00 Total Protein 4.0 gm/dL (6.0-8.3) L 07/18/18 05:20 Albumin < 1.5 gm/dL (3.7-5.3) L 07/18/18 05:20 Globulin 2.5 gm/dL 07/18/18 05:20 Albumin/Globulin Ratio 0.6 (1.0-1.8) L 07/18/18 05:20 Triglycerides 53 mg/dL (<150) 07/13/18 04:00 Cholesterol 41 mg/dL (<200) 07/13/18 04:00 LDL Cholesterol Direct 11 mg/dL (75-193) L 07/13/18 04:00 HDL Cholesterol 24 mg/dL (23-92) 07/13/18 04:00 TSH 1.21 uIU/ml (0.34-5.60) 07/13/18 04:00 Urine Source [place] 07/12/18 20:50 Urine Color YELLOW 07/12/18 20:50 Urine Clarity CLOUDY (CLEAR) H 07/12/18 20:50 Urine pH 8.5 (4.6 - 8.0) 07/12/18 20:50 Ur Specific [place] 1.015 (1.005-1.030) 07/12/18 20:50 Urine Protein 100 mg/dL (NEGATIVE) H 07/12/18 20:50 Urine Glucose (UA) NEGATIVE mg/dL (NEGATIVE) 07/12/18 20:50 Urine Ketones NEGATIVE mg/dL (NEGATIVE) 07/12/18 20:50 Urine Blood TRACE (NEGATIVE) 07/12/18 20:50 Urine Nitrate NEGATIVE (NEGATIVE) 07/12/18 20:50 Urine Bilirubin NEGATIVE (NEGATIVE) 07/12/18 20:50 Urine Urobilinogen 0.2 E.U./dL (0.2 - 1.0) 07/12/18 20:50 Ur Leukocyte Esterase LARGE (NEGATIVE) H 07/12/18 20:50 Urine RBC 2-5 /hpf (0-5) 07/12/18 20:50 Urine WBC >100 /hpf (0-5) H 07/12/18 20:50 Ur Epithelial Cells MODERATE /lpf (FEW) 07/12/18 20:50 Urine Bacteria MANY /hpf (NONE SEEN) H 07/12/18 20:50 Amikacin Peak 17.8 ug/mL (20.0-30.0) L 07/23/18 20:25 Amikacin Trough 6.9 ug/mL (1.0-8.0) 07/23/18 18:00 Random Amikacin 12.7 ug/ml (1.0-30.0) 07/22/18 05:55 Random Vancomycin 25.5 ug/mL (5.0-40.0) 07/24/18 05:50 - Physical Exam Vitals and I&O: Vital Signs Temp 97.6 F 07/24/18 12:00 Pulse 92 07/24/18 14:08 Resp 18 07/24/18 14:08 BP 128/34 07/24/18 12:00 Pulse Ox 100 07/24/18 14:08 Intake & Output 07/23/18 07/24/18 07/24/18 18:59 06:59 18:59 Intake Total 1177.335 347.145 100 Output Total 3270 170 Balance -2092.665 177.145 100 Weight (lbs) 64.773 kg 109.769 kg Intake: Intake, IV Amount 1177.335 347.145 100 Albumin 25% 25gm/100mL 25 200 gm In 100 ml @ 50 mls/hr IV PRN PRN Rx#:[id number] Amikacin 750 mg In 103 Dextrose 5% 100 ml @ 100 mls/hr IV ONCE ONE Rx#: [id number] D5-0.9%Ns 1,000 ml @ 100 866.667 mls/hr IV .Q10H [facility] Rx#: [id number] Norepinephrine 4 mg In 10.668 144.145 Dextrose 5% 250 ml @ 10 MCG/MIN 38.1 mls/hr IV TITR PRN Rx#:[id number] Tigecycline 50 mg In 100 100 100 Sodium Chloride 0.9% 100 ml @ 100 mls/hr IV Q12HR [facility] Rx#:[id number] Output: Drainage 170 150 Sacrum 50 100 colostomy 120 50 Urine 100 20 Hemodialysis 3000 Other: # Bowel Movements 0 Weight Source Bedscale Bedscale Active Medications: Current Medications Acetaminophen (Tylenol) 650 mg PO Q6H PRN PRN Reason: Pain or Fever >101 Stop: 09/11/18 15:14 Albuterol/Ipratropium (Duoneb Neb) 3 ml HHN Q4HRT PRN PRN Reason: Shortness of Breath or Wheeze Stop: 09/11/18 15:14 Albuterol/Ipratropium (Duoneb Neb) 3 ml HHN Q6HRT [facility] Stop: 09/21/18 18:59 Last Admin: 07/24/18 14:08 Dose: 3 ml Ascorbic Acid (Vitamin C) 500 mg PO DAILY [facility] Stop: 09/12/18 08:59 Last Admin: 07/24/18 09:54 Dose: Not Given Atorvastatin Calcium (Lipitor) 20 mg PO HS [facility] Stop: 09/11/18 20:59 Last Admin: 07/23/18 20:34 Dose: Not Given [place] Oil/[place] Balsam/Trypsin (Venelex) 1 appl TP DAILY [facility] Stop: 09/13/18 08:59 Last Admin: 07/23/18 08:54 Dose: Not Given Dextrose (Glutose 40%) 18.75 gm PO PRN PRN PRN Reason: Blood Glucose less than 70 Stop: 09/11/18 04:10 Docusate Sodium (Colace) 100 mg PO BID [facility] Stop: 09/11/18 16:59 Last Admin: 07/24/18 09:54 Dose: Not Given Famotidine (Pepcid) 20 mg PO DAILY [facility] Stop: 09/12/18 08:59 Last Admin: 07/24/18 09:55 Dose: Not Given Folic Acid (Folate) 1 mg PO DAILY [facility] Stop: 09/12/18 08:59 Last Admin: 07/24/18 09:55 Dose: Not Given Glucagon (Glucagen) 1 mg IM PRN PRN PRN Reason: Blood Glucose less than 70 Stop: 09/11/18 04:10 Heparin Sodium (Porcine) (Heparin) 5,000 units SUBQ Q12HR [facility] Stop: 09/17/18 20:59 Last Admin: 07/24/18 09:56 Dose: 5,000 units Hydromorphone HCl (Dilaudid) 1 mg IVP Q4HR PRN PRN Reason: Pain (Severe) Stop: 09/20/18 20:12 Last Admin: 07/23/18 02:36 Dose: 1 mg Tigecycline 50 mg/ Sodium (Chloride) 100 mls @ 100 mls/hr IV Q12HR [facility] Stop: 07/26/18 08:59 Last Infusion: 07/24/18 12:14 Dose: Infused Norepinephrine Bitartrate 4 mg (/ Dextrose) 254 mls @ 38.1 mls/hr IV TITR PRN; Protocol PRN Reason: BP MAINTENANCE (PER PROTOCOL) Stop: 09/21/18 14:18 Last Titration: 07/24/18 04:10 Dose: 0 mcg/min, 0 mls/hr Insulin Aspart (Novolog Insulin Sliding Scale) 0 units SUBQ Q6HR [facility]; Protocol Stop: 09/11/18 05:59 Last Admin: 07/24/18 12:10 Dose: 2 units Lactobacillus Rhamnosus (Culturelle 15b) 1 each PO DAILY [facility] Stop: 09/13/18 13:59 Last Admin: 07/24/18 09:55 Dose: Not Given Levothyroxine Sodium (Synthroid) 0.025 mg PO QDAC [facility] Stop: 09/12/18 07:29 Last Admin: 07/24/18 06:34 Dose: Not Given Miscellaneous (Probiotic Screen) 1 ea PRN PRN PRN Reason: PROTOCOL Stop: 09/13/18 11:44 Miscellaneous (Amikacin Iv Per Pharmacy) 1 ea PRN PRN PRN Reason: PROTOCOL Stop: 09/13/18 18:08 Oxcarbazepine (Trileptal) 600 mg PO BID [facility] Stop: 09/11/18 16:59 Last Admin: 07/24/18 09:55 Dose: Not Given Risperidone (Risperdal) 2 mg PO HS [facility] Stop: 09/11/18 20:59 Last Admin: 07/23/18 20:34 Dose: Not Given Senna (Senna) 17.2 mg PO BID [facility] Stop: 09/11/18 16:59 Last Admin: 07/24/18 09:55 Dose: Not Given Sevelamer Carbonate (Renvela) 800 mg PO TIDWM [facility] Stop: 09/11/18 16:59 Last Admin: 07/24/18 13:37 Dose: 800 mg Vitamin B Complex/Vit C/Folic Acid (Vitamin B Complex W/Vitamin C) 1 tab PO DAILY [facility] Stop: 09/12/18 08:59 Last Admin: 07/24/18 09:56 Dose: Not Given Zinc Sulfate (Zinc Sulfate) 220 mg PO DAILY [facility] Stop: 09/12/18 08:59 Last Admin: 07/24/18 09:56 Dose: Not Given General: Alert, Mild distress HEENT: Atraumatic, EOMI Neck: Supple, +2 carotid pulse wo bruit Cardiovascular: Regular rate, Normal S1, Normal S2 Lungs: Other (scattered rales) Abdomen: Bowel sounds, Soft Extremities: Edema ((+) 2-3 edema), Other ((+) 2 bipedal edema) Neurological: Sensation intact Skin: no Rash Psych/Mental Status: Mood NL - Procedures Procedures: Procedures Procedure Code Date BYPASS DESCENDING COLON TO CUTANEOUS, OPEN APPROACH [id number] 07/12/18 EXCISION OF L LOW LEG SUBCU/FASCIA, OPEN APPROACH [id number] 07/12/18 EXCISION OF SACRUM, OPEN APPROACH [id number] 07/12/18 EXCISION OF SIGMOID COLON, OPEN APPROACH [id number] 07/12/18 RESPIRATORY VENTILATION, LESS THAN 24 CONSECUTIVE HOURS [id number] 07/12/18 Assessment/Plan - Problem List Patient Problems: All Active Problems Anasarca (Acute) R60.1 Anemia (Acute) D64.9 CAD (coronary artery disease) (Acute) I25.10 CHF (congestive heart failure) (Acute) I50.9 CKD (chronic kidney disease) (Acute) N18.9 HTN (hypertension) (Acute) I10 UTI (urinary tract infection) (Acute) sacral stage 4 wound (Acute) - Assessment Assessment: ESRD on HD Hypothyroid Parkinson Ds. Fnc Quad Hep B,C GERD Left Calf ulcer Sacral Decub ulcer stage 4, w/ wound vacuum Cholelithiasis B/L HAP w/ effusions Peripheral edema Left SFV DVT S/P Diverting Colostomy - Plan Plan: Lab - Result Diagrams 07/14/18 05:00 07/14/18 05:00 Current Medications Acetaminophen (Tylenol) 650 mg PO Q6H PRN PRN Reason: Pain or Fever >101 Stop: 09/11/18 15:14 Acetaminophen/Hydrocodone Bitart ([place] 5mg/325mg) 1 tab PO Q6H PRN PRN Reason: Pain (Severe) Stop: 09/11/18 15:14 Albuterol/Ipratropium (Duoneb Neb) 3 ml HHN Q4HRT PRN PRN Reason: Shortness of Breath or Wheeze Stop: 09/11/18 15:14 Ascorbic Acid (Vitamin C) 500 mg PO DAILY [facility] Stop: 09/12/18 08:59 Last Admin: 07/14/18 08:27 Dose: 500 mg Atorvastatin Calcium (Lipitor) 20 mg PO HS [facility] Stop: 09/11/18 20:59 Last Admin: 07/13/18 21:05 Dose: 20 mg Dextrose (D50w) 50 ml IVP PRN PRN PRN Reason: Blood Glucose less than 70 Stop: 09/11/18 04:10 Dextrose (Glutose 40%) 18.75 gm PO PRN PRN PRN Reason: Blood Glucose less than 70 Stop: 09/11/18 04:10 Docusate Sodium (Colace) 100 mg PO BID [facility] Stop: 09/11/18 16:59 Last Admin: 07/14/18 08:27 Dose: 100 mg Famotidine (Pepcid) 20 mg PO DAILY [facility] Stop: 09/12/18 08:59 Last Admin: 07/14/18 08:27 Dose: 20 mg Folic Acid (Folate) 1 mg PO DAILY [facility] Stop: 09/12/18 08:59 Last Admin: 07/14/18 08:27 Dose: 1 mg Glucagon (Glucagen) 1 mg IM PRN PRN PRN Reason: Blood Glucose less than 70 Stop: 09/11/18 04:10 Piperacillin Sod/Tazobactam (Sod 2.25 gm/ Sodium Chloride) 50 mls @ 100 mls/hr IV Q6H [facility] Stop: 09/11/18 05:59 Last Admin: 07/14/18 06:05 Dose: Not Given Dextrose/Sodium Chloride (D5-0.45ns) 1,000 mls @ 50 mls/hr IV .Q20H [facility] Stop: 09/11/18 02:29 Last Admin: 07/13/18 04:03 Dose: 50 mls/hr Insulin Aspart (Novolog Insulin Sliding Scale) 0 units SUBQ Q6HR [facility]; Protocol Stop: 09/11/18 05:59 Last Admin: 07/14/18 06:05 Dose: Not Given Levothyroxine Sodium (Synthroid) 0.025 mg PO QDAC [facility] Stop: 09/12/18 07:29 Last Admin: 07/14/18 06:35 Dose: 0.025 mg Miscellaneous (Vancomycin Iv Per Pharmacy) 1 ea MC PRN PRN PRN Reason: PROTOCOL Stop: 09/10/18 23:40 Oxcarbazepine (Trileptal) 600 mg PO BID [facility] Stop: 09/11/18 16:59 Last Admin: 07/14/18 08:27 Dose: 600 mg Risperidone (Risperdal) 2 mg PO HS [facility] Stop: 09/11/18 20:59 Last Admin: 07/13/18 21:05 Dose: 2 mg Senna (Senna) 17.2 mg PO BID [facility] Stop: 09/11/18 16:59 Last Admin: 07/14/18 08:27 Dose: 17.2 mg Sevelamer Carbonate (Renvela) 800 mg PO TIDWM [facility] Stop: 09/11/18 16:59 Last Admin: 07/14/18 08:27 Dose: 800 mg Temazepam (Restoril) 15 mg PO HS PRN; Protocol PRN Reason: Insomnia Stop: 09/11/18 15:14 Vitamin B Complex/Vit C/Folic Acid (Vitamin B Complex W/Vitamin C) 1 tab PO DAILY [facility] Stop: 09/12/18 08:59 Last Admin: 07/14/18 08:27 Dose: 1 tab Zinc Sulfate (Zinc Sulfate) 220 mg PO DAILY [facility] Stop: 09/12/18 08:59 Last Admin: 07/14/18 08:27 Dose: 220 mg Lab - Result Diagrams 07/24/18 05:50 07/23/18 04:45 extubated Cr. more elevated w/ peripheral edema continue wound care Pt. had diverting colostomy CXR still w/ persistent CHF, congestion: f/u CXR schedule for HD in am Nutritional Asmnt/Malnutr-PDOC - Dietary Evaluation Malnutrition Findings (Please click <Entered> for more info): Nutritional Asmnt/Malnutrition Start: 07/13/18 13: 54 Text: Status: Complete Freq: Protocol: Document 07/13/18 13:56 ALDAIR (Rec: 07/13/18 14:10 MMERIN NASH- [id number]) Nutritional Asmnt/Malnutrition Patient General Information Nutritional Screening Consult Diagnosis ESRD, anasarca Pertinent Medical Hx/Surgical Hx Seizure, hep C, diabetes, CAD, HTN, CVA, quadreplegia, Parkinsons, ESRD Subjective Information Consult received for "Diabetic ". Per nursing notes, patient receives hemodialysis MWF and patient is non-verbal. Patient with 2+ pitting edema. Current Diet Order/ Nutrition Support Renal diet Patient / S.O Not Indicated Pertinent Medications D50W, D5-0.45NS @50 ml/hr, Glucagon, Novolog Pertinent Labs (07/13) Na 134, BUN 48, Cr 2.9, glucose 41-137, Ca 8.2, BNP 515, albumin 2 Nutritional Hx/Data Height 1.73 m Height (Calculated Centimeters) 172.7 Current Weight (lbs) 113.852 kg Weight (Calculated Kilograms) 113.9 Weight (Calculated Grams) 362888.7 [place] Body Weight 140 % [place] Body Weight 179 Body Mass Index (BMI) 38.1 Recent Weight Change No Weight Status Morbidly Obese GI Symptoms GI Symptoms None Last BM 07/13 x 1 Difficult in: Chewing Food Allergies No Cultural/Ethnic/Jainism Belief none indicated Usual diet at home unknown Skin Integrity/Comment: Arian 10, ulceration on sacrum, left lower leg, abrasion on L heel, scar on right leg. Current %PO Good (75-100%) Estimated Nutritional Goals BEE in Kcals: Adj wt of IBW Calories/Kcals/Kg 27-32 kcal/kg (using 76.2kg ADj wt) Kcals Calculated ~7697-5746 kcal/day Protein g/k.2-1.5 gm/kg using Adj wt Protein Calculated ~90-115 gm/day Fluid: ml Per MD due to HD Nutritional Problem 2. Problem Problem Altered nutrition related lab values related to Etiology episodes of hypoglycemia, electrolyte imbalance aeb Signs/Symptoms: Na 134, glucose 41-137, Ca 8.2 1. Problem Problem Increased nutrient needs related to Etiology hypermetabolic state, impaired skin integrity aeb Signs/Symptoms: Pt on Hemodialysis and with multiple ulcerations Intervention/Recommendation Comments 1. Continue Renal diet as tolerated by patient. No need for DM restriction at this time due to hypoglycemia. 2. Consider fluid restriction due to HD, hyponatremia and edema. 3. Consider adding Prosource 1 packet with each meal for an additional 45gm protein. Expected Outcomes/Goals Expected Outcomes/Goals Oral intake >75% of meals, weight stable or trend toward ideal body weight, nutrition related labs WNL
--- NOTE | 2018-07-24 15:58 | Pathology Report ---
[id number] Collection Date: 07/22/2018 Surgeon: Dr. Gianfranco Dutta Specimen Description: Sigmoid colon Gross Description: Received in formalin is an 18 cm in length x 5.8 cm in outer diameter segment of sigmoid colon with a smooth, glistening, [place]-pink outer serosal surface. A 4 x 3 cm portion of yellow fatty tissue is also identified. Opening the colon shows a normal folded mucosa with no focal lesions appreciated. Protective Signal Superintendent sections are submitted in one cassette. Microscopic Description: The histologic sections show portions of colon with an intact mucosa and muscular wall. Diagnosis: Portion of sigmoid colon showing no significant abnormalities, consistent with redundant colon (diverting colostomy). [facility]# [id number] [place]
[2018-07-24] MEDS: Venelex 60gm Tube TP SCH (16:00)
[2018-07-24] MEDS: HYDROmorphone 1 mg/mL 1mL Syr IVP PRN ×2 (17:34→21:28)
[2018-07-24] MEDS: Atorvastatin Calcium 10 MG TAB PO SCH (20:59)
[2018-07-25] MEDS: INSULIN ASPART SLIDING SCALE 100 UNITS/ML UNIT SUBQ SCH ×5 (00:22→23:38)
[2018-07-25] MEDS: Albuterol/Ipratropium Neb 3 ML AERS HHN SCH ×4 (01:02→19:56)
[2018-07-25] MEDS: HYDROmorphone 1 mg/mL 1mL Syr IVP PRN ×2 (05:03→12:00)
[2018-07-25 06:21] LABS: INR 3.3 (0.5-1.4); PROTHROMBIN TIME (TEST) 32.4 SECONDS (9.5-11.5)
[2018-07-25] MEDS: Lactobacillus Rhamnosus GG 15 Billion CFU CAP.SPRINK PO SCH (08:46)
[2018-07-25] MEDS: Docusate Sodium 100 mg/10 mL UD PO SCH ×2 (08:46→17:18)
[2018-07-25] MEDS: Levothyroxine 0.025 Mg Tab PO SCH (08:46)
[2018-07-25] MEDS: Vitamin B Complex w/Vitamin C Tab PO SCH (08:48)
[2018-07-25] MEDS: Venelex 60gm Tube TP SCH (09:00)
--- NOTE | 2018-07-25 09:29 | Diagnostic Imaging Report ---
Bilateral lower extremity Doppler venous ultrasound exam HISTORY: Pain/swelling Sonographic sector images were obtained through the deep venous systems of both legs. Associated Doppler data was obtained. Evaluation of the paranasal vein region Limited due to patient body habitus and overlying bandages on the left leg. The exam demonstrates patency of the common femoral, superficial femoral, popliteal, and posterior tibial veins bilaterally. Specifically, no thrombus is seen. There are normal compressibility and augmentation responses. IMPRESSION: No definite evidence of deep vein thrombophlebitis
--- NOTE | 2018-07-25 14:53 | General Progress Note ---
Subjective - Review of Systems Service Date: 07/25/18 Subjective: alert, comfortable, on puree diet Objective - Results Result Diagrams: 07/24/18 05:50 07/23/18 04:45 Recent Labs: Laboratory Last Values WBC 7.4 Th/cmm (4.8-10.8) 07/24/18 05:50 RBC 2.99 Mil/cmm (3.80-5.10) L 07/24/18 05:50 Hgb 8.7 gm/dL (12-16) L 07/24/18 05:50 Hct 26.4 % (41.0-60) L 07/24/18 05:50 MCV 88.5 fl (81-100) 07/24/18 05:50 MCH 29.1 pg (27.0-31.0) 07/24/18 05:50 MCHC Differential 32.9 pg (28.0-36.0) 07/24/18 05:50 RDW 16.8 % (11.5-20.0) 07/24/18 05:50 Plt Count 130 Th/cmm (150-400) L 07/24/18 05:50 MPV 7.2 fl 07/24/18 05:50 Add Manual Diff YES 07/18/18 09:02 Neutrophils % 44.6 % (40.0-80.0) 07/24/18 05:50 Band Neutrophils % 1 % (0-10) 07/18/18 09:02 Lymphocytes % 41.9 % (20.0-50.0) 07/24/18 05:50 Monocytes % 13.3 % (2.0-10.0) H 07/24/18 05:50 Eosinophils % 0.0 % (0.0-5.0) 07/24/18 05:50 Basophils % 0.2 % (0.0-2.0) 07/24/18 05:50 Neutrophils (Manual) 52 % (40-80) 07/18/18 09:02 Lymphocytes 36 % (20-50) 07/18/18 09:02 Monocytes 11 % (2-10) H 07/18/18 09:02 Eosinophils 0 % (0-5) 07/18/18 09:02 Basophils 0 % (0-3) 07/18/18 09:02 Platelet Estimate DECREASED PLATELETS (NORMAL) 07/18/18 09:02 PT 32.4 SECONDS (9.5-11.5) H 07/25/18 05:20 INR 3.30 (0.5-1.4) H 07/25/18 05:20 PTT (Actin FS) 43.0 SECONDS (26.0-38.0) H 07/20/18 08:08 Specimen Source Arterial 07/23/18 17:00 Sample Site LB 07/23/18 17:00 pH 7.44 (7.35-7.45) 07/23/18 17:00 pCO2 44.0 mmHg (35.0-45.0) 07/23/18 17:00 pO2 86.0 mmHg (80.0-100.0) 07/23/18 17:00 HCO3 28.9 mEq/L (20.0-26.0) H 07/23/18 17:00 Base Excess 5.1 mEq/L (-3.0-3.0) H 07/23/18 17:00 O2 Saturation 97.0 % (92.0-100.0) 07/23/18 17:00 [place] Test NA 07/23/18 17:00 Vent Rate NA 07/23/18 17:00 Inspired O2 40 07/23/18 17:00 Tidal Volume NA 07/23/18 17:00 PEEP NA 07/23/18 17:00 Pressure (ins/psv/peep) NA 07/23/18 17:00 Critical Value E.QUINTEROS 07/23/18 17:00 Sodium 137 mEq/L (136-145) 07/23/18 04:45 Potassium 3.8 mEq/L (3.5-5.1) 07/23/18 04:45 Chloride 107 mEq/L (98-107) 07/23/18 04:45 Carbon Dioxide 20.1 mEq/L (21.0-31.0) L 07/23/18 04:45 Anion Gap 13.7 (7.0-16.0) 07/23/18 04:45 BUN 11 mg/dL (7-25) 07/23/18 04:45 Creatinine 2.3 mg/dL (0.6-1.2) H 07/23/18 04:45 Est GFR ( Amer) 29.0 ml/min (>90) 07/23/18 04:45 Est GFR (Non-Af Amer) 24.0 ml/min 07/23/18 04:45 BUN/Creatinine Ratio 4.8 07/23/18 04:45 Glucose 219 mg/dL (70-105) H 07/23/18 04:45 POC Glucose 201 MG/DL (70 - 105) H 07/25/18 12:09 Whole Bld Lactic Acid 1.29 mmol/L (0.60-1.99) 07/12/18 20:50 Calcium 8.2 mg/dL (8.6-10.3) L 07/23/18 04:45 Magnesium 1.6 mg/dL (1.9-2.7) L 07/21/18 05:00 Total Bilirubin 0.3 mg/dL (0.3-1.0) 07/18/18 05:20 AST 18 U/L (13-39) 07/18/18 05:20 ALT 7 U/L (7-52) 07/18/18 05:20 Alkaline Phosphatase 80 U/L (34-104) 07/18/18 05:20 Creatine Kinase 20 U/L (30-223) L 07/12/18 20:50 Troponin I 0.49 ng/mL (0.01-0.05) H* 07/13/18 15:20 B-Natriuretic Peptide 515.0 pg/mL (5.0-100.0) H 07/13/18 04:00 Total Protein 4.0 gm/dL (6.0-8.3) L 07/18/18 05:20 Albumin < 1.5 gm/dL (3.7-5.3) L 07/18/18 05:20 Globulin 2.5 gm/dL 07/18/18 05:20 Albumin/Globulin Ratio 0.6 (1.0-1.8) L 07/18/18 05:20 Triglycerides 53 mg/dL (<150) 07/13/18 04:00 Cholesterol 41 mg/dL (<200) 07/13/18 04:00 LDL Cholesterol Direct 11 mg/dL (75-193) L 07/13/18 04:00 HDL Cholesterol 24 mg/dL (23-92) 07/13/18 04:00 TSH 1.21 uIU/ml (0.34-5.60) 07/13/18 04:00 Urine Source [place] 07/12/18 20:50 Urine Color YELLOW 07/12/18 20:50 Urine Clarity CLOUDY (CLEAR) H 07/12/18 20:50 Urine pH 8.5 (4.6 - 8.0) 07/12/18 20:50 Ur Specific [place] 1.015 (1.005-1.030) 07/12/18 20:50 Urine Protein 100 mg/dL (NEGATIVE) H 07/12/18 20:50 Urine Glucose (UA) NEGATIVE mg/dL (NEGATIVE) 07/12/18 20:50 Urine Ketones NEGATIVE mg/dL (NEGATIVE) 07/12/18 20:50 Urine Blood TRACE (NEGATIVE) 07/12/18 20:50 Urine Nitrate NEGATIVE (NEGATIVE) 07/12/18 20:50 Urine Bilirubin NEGATIVE (NEGATIVE) 07/12/18 20:50 Urine Urobilinogen 0.2 E.U./dL (0.2 - 1.0) 07/12/18 20:50 Ur Leukocyte Esterase LARGE (NEGATIVE) H 07/12/18 20:50 Urine RBC 2-5 /hpf (0-5) 07/12/18 20:50 Urine WBC >100 /hpf (0-5) H 07/12/18 20:50 Ur Epithelial Cells MODERATE /lpf (FEW) 07/12/18 20:50 Urine Bacteria MANY /hpf (NONE SEEN) H 07/12/18 20:50 Amikacin Peak 17.8 ug/mL (20.0-30.0) L 07/23/18 20:25 Amikacin Trough 6.9 ug/mL (1.0-8.0) 07/23/18 18:00 Random Amikacin 12.7 ug/ml (1.0-30.0) 07/22/18 05:55 Random Vancomycin 25.5 ug/mL (5.0-40.0) 07/24/18 05:50 - Physical Exam Vitals and I&O: Vital Signs Temp 97 F 07/25/18 12:00 Pulse 95 07/25/18 13:51 Resp 18 07/25/18 13:51 BP 119/60 07/25/18 12:00 Pulse Ox 100 07/25/18 13:51 Intake & Output 07/24/18 07/25/18 07/25/18 18:59 06:59 18:59 Intake Total 700 150 Output Total 145 105 Balance 555 45 Weight (lbs) 109.769 kg 109.769 kg Intake: Intake, IV Amount 100 100 Tigecycline 50 mg In 100 100 Sodium Chloride 0.9% 100 ml @ 100 mls/hr IV Q12HR [facility] Rx#:[id number] Oral 600 50 Output: Drainage 125 95 Sacrum 125 75 colostomy 20 Urine 20 10 Other: Weight Source Bedscale Bedscale Active Medications: Current Medications Acetaminophen (Tylenol) 650 mg PO Q6H PRN PRN Reason: Pain or Fever >101 Stop: 09/11/18 15:14 Albuterol/Ipratropium (Duoneb Neb) 3 ml HHN Q4HRT PRN PRN Reason: Shortness of Breath or Wheeze Stop: 09/11/18 15:14 Albuterol/Ipratropium (Duoneb Neb) 3 ml HHN Q6HRT [facility] Stop: 09/21/18 18:59 Last Admin: 07/25/18 13:51 Dose: 3 ml Ascorbic Acid (Vitamin C) 500 mg PO DAILY [facility] Stop: 09/12/18 08:59 Last Admin: 07/25/18 08:47 Dose: 500 mg Atorvastatin Calcium (Lipitor) 20 mg PO HS [facility] Stop: 09/11/18 20:59 Last Admin: 07/24/18 20:59 Dose: 20 mg [place] Oil/[place] Balsam/Trypsin (Venelex) 1 appl TP DAILY [facility] Stop: 09/13/18 08:59 Last Admin: 07/25/18 09:00 Dose: Not Given Dextrose (Glutose 40%) 18.75 gm PO PRN PRN PRN Reason: Blood Glucose less than 70 Stop: 09/11/18 04:10 Docusate Sodium (Colace) 100 mg PO BID [facility] Stop: 09/11/18 16:59 Last Admin: 07/25/18 08:46 Dose: 100 mg Famotidine (Pepcid) 20 mg PO DAILY [facility] Stop: 09/12/18 08:59 Last Admin: 07/25/18 08:48 Dose: 20 mg Folic Acid (Folate) 1 mg PO DAILY [facility] Stop: 09/12/18 08:59 Last Admin: 07/25/18 08:48 Dose: 1 mg Glucagon (Glucagen) 1 mg IM PRN PRN PRN Reason: Blood Glucose less than 70 Stop: 09/11/18 04:10 Heparin Sodium (Porcine) (Heparin) 5,000 units SUBQ Q12HR [facility] Stop: 09/17/18 20:59 Last Admin: 07/25/18 08:48 Dose: 5,000 units Hydromorphone HCl (Dilaudid) 1 mg IVP Q4HR PRN PRN Reason: Pain (Severe) Stop: 09/20/18 20:12 Last Admin: 07/25/18 12:00 Dose: 1 mg Tigecycline 50 mg/ Sodium (Chloride) 100 mls @ 100 mls/hr IV Q12HR [facility] Stop: 09/17/18 19:44 Last Admin: 07/25/18 08:48 Dose: 100 mls/hr Norepinephrine Bitartrate 4 mg (/ Dextrose) 254 mls @ 38.1 mls/hr IV TITR PRN; Protocol PRN Reason: BP MAINTENANCE (PER PROTOCOL) Stop: 09/21/18 14:18 Last Titration: 07/24/18 04:10 Dose: 0 mcg/min, 0 mls/hr Amikacin Sulfate 750 mg/ (Dextrose) 103 mls @ 100 mls/hr IV ONCE ONE Stop: 07/25/18 17:01 Insulin Aspart (Novolog Insulin Sliding Scale) 0 units SUBQ Q6HR [facility]; Protocol Stop: 09/11/18 05:59 Last Admin: 07/25/18 12:20 Dose: 2 units Lactobacillus Rhamnosus (Culturelle 15b) 1 each PO DAILY [facility] Stop: 09/13/18 13:59 Last Admin: 07/25/18 08:46 Dose: 1 each Levothyroxine Sodium (Synthroid) 0.025 mg PO QDAC [facility] Stop: 09/12/18 07:29 Last Admin: 07/25/18 08:46 Dose: 0.025 mg Miscellaneous (Probiotic Screen) 1 ea PRN PRN PRN Reason: PROTOCOL Stop: 09/13/18 11:44 Miscellaneous (Amikacin Iv Per Pharmacy) 1 ea PRN PRN PRN Reason: PROTOCOL Stop: 09/13/18 18:08 Oxcarbazepine (Trileptal) 600 mg PO BID [facility] Stop: 09/11/18 16:59 Last Admin: 07/25/18 08:46 Dose: 600 mg Risperidone (Risperdal) 2 mg PO HS [facility] Stop: 09/11/18 20:59 Last Admin: 07/24/18 20:59 Dose: 2 mg Senna (Senna) 17.2 mg PO BID [facility] Stop: 09/11/18 16:59 Last Admin: 07/25/18 08:46 Dose: 17.2 mg Sevelamer Carbonate (Renvela) 800 mg PO TIDWM [facility] Stop: 09/11/18 16:59 Last Admin: 07/25/18 12:00 Dose: 800 mg Vitamin B Complex/Vit C/Folic Acid (Vitamin B Complex W/Vitamin C) 1 tab PO DAILY [facility] Stop: 09/12/18 08:59 Last Admin: 07/25/18 08:48 Dose: 1 tab Zinc Sulfate (Zinc Sulfate) 220 mg PO DAILY [facility] Stop: 09/12/18 08:59 Last Admin: 07/25/18 08:47 Dose: 220 mg General: Alert, Mild distress HEENT: Atraumatic, EOMI Neck: Supple, +2 carotid pulse wo bruit Cardiovascular: Regular rate, Normal S1, Normal S2 Lungs: Other (scattered rhonchi) Abdomen: Bowel sounds, Soft Extremities: Edema ((+) 2-3 edema), Other ((+) 2 bipedal edema) Neurological: Sensation intact Skin: no Rash Psych/Mental Status: Mood NL - Procedures Procedures: Procedures Procedure Code Date BYPASS DESCENDING COLON TO CUTANEOUS, OPEN APPROACH [id number] 07/12/18 EXCISION OF L LOW LEG SUBCU/FASCIA, OPEN APPROACH [id number] 07/12/18 EXCISION OF SACRUM, OPEN APPROACH [id number] 07/12/18 EXCISION OF SIGMOID COLON, OPEN APPROACH [id number] 07/12/18 RESPIRATORY VENTILATION, LESS THAN 24 CONSECUTIVE HOURS [id number] 07/12/18 Assessment/Plan - Problem List Patient Problems: All Active Problems Anasarca (Acute) R60.1 Anemia (Acute) D64.9 CAD (coronary artery disease) (Acute) I25.10 CHF (congestive heart failure) (Acute) I50.9 CKD (chronic kidney disease) (Acute) N18.9 HTN (hypertension) (Acute) I10 UTI (urinary tract infection) (Acute) sacral stage 4 wound (Acute) - Assessment Assessment: ESRD on HD Hypothyroid Parkinson Ds. Fnc Quad Hep B,C GERD Left Calf ulcer Sacral Decub ulcer stage 4, w/ wound vacuum Cholelithiasis B/L HAP w/ effusions Peripheral edema Left SFV DVT S/P Diverting Colostomy - Plan Plan: Lab - Result Diagrams 07/14/18 05:00 07/14/18 05:00 Current Medications Acetaminophen (Tylenol) 650 mg PO Q6H PRN PRN Reason: Pain or Fever >101 Stop: 09/11/18 15:14 Acetaminophen/Hydrocodone Bitart ([place] 5mg/325mg) 1 tab PO Q6H PRN PRN Reason: Pain (Severe) Stop: 09/11/18 15:14 Albuterol/Ipratropium (Duoneb Neb) 3 ml HHN Q4HRT PRN PRN Reason: Shortness of Breath or Wheeze Stop: 09/11/18 15:14 Ascorbic Acid (Vitamin C) 500 mg PO DAILY [facility] Stop: 09/12/18 08:59 Last Admin: 07/14/18 08:27 Dose: 500 mg Atorvastatin Calcium (Lipitor) 20 mg PO HS [facility] Stop: 09/11/18 20:59 Last Admin: 07/13/18 21:05 Dose: 20 mg Dextrose (D50w) 50 ml IVP PRN PRN PRN Reason: Blood Glucose less than 70 Stop: 09/11/18 04:10 Dextrose (Glutose 40%) 18.75 gm PO PRN PRN PRN Reason: Blood Glucose less than 70 Stop: 09/11/18 04:10 Docusate Sodium (Colace) 100 mg PO BID [facility] Stop: 09/11/18 16:59 Last Admin: 07/14/18 08:27 Dose: 100 mg Famotidine (Pepcid) 20 mg PO DAILY [facility] Stop: 09/12/18 08:59 Last Admin: 07/14/18 08:27 Dose: 20 mg Folic Acid (Folate) 1 mg PO DAILY [facility] Stop: 09/12/18 08:59 Last Admin: 07/14/18 08:27 Dose: 1 mg Glucagon (Glucagen) 1 mg IM PRN PRN PRN Reason: Blood Glucose less than 70 Stop: 09/11/18 04:10 Piperacillin Sod/Tazobactam (Sod 2.25 gm/ Sodium Chloride) 50 mls @ 100 mls/hr IV Q6H [facility] Stop: 09/11/18 05:59 Last Admin: 07/14/18 06:05 Dose: Not Given Dextrose/Sodium Chloride (D5-0.45ns) 1,000 mls @ 50 mls/hr IV .Q20H [facility] Stop: 09/11/18 02:29 Last Admin: 07/13/18 04:03 Dose: 50 mls/hr Insulin Aspart (Novolog Insulin Sliding Scale) 0 units SUBQ Q6HR [facility]; Protocol Stop: 09/11/18 05:59 Last Admin: 07/14/18 06:05 Dose: Not Given Levothyroxine Sodium (Synthroid) 0.025 mg PO QDAC [facility] Stop: 09/12/18 07:29 Last Admin: 07/14/18 06:35 Dose: 0.025 mg Miscellaneous (Vancomycin Iv Per Pharmacy) 1 ea MC PRN PRN PRN Reason: PROTOCOL Stop: 09/10/18 23:40 Oxcarbazepine (Trileptal) 600 mg PO BID [facility] Stop: 09/11/18 16:59 Last Admin: 07/14/18 08:27 Dose: 600 mg Risperidone (Risperdal) 2 mg PO HS [facility] Stop: 09/11/18 20:59 Last Admin: 07/13/18 21:05 Dose: 2 mg Senna (Senna) 17.2 mg PO BID [facility] Stop: 09/11/18 16:59 Last Admin: 07/14/18 08:27 Dose: 17.2 mg Sevelamer Carbonate (Renvela) 800 mg PO TIDWM [facility] Stop: 09/11/18 16:59 Last Admin: 07/14/18 08:27 Dose: 800 mg Temazepam (Restoril) 15 mg PO HS PRN; Protocol PRN Reason: Insomnia Stop: 09/11/18 15:14 Vitamin B Complex/Vit C/Folic Acid (Vitamin B Complex W/Vitamin C) 1 tab PO DAILY [facility] Stop: 09/12/18 08:59 Last Admin: 07/14/18 08:27 Dose: 1 tab Zinc Sulfate (Zinc Sulfate) 220 mg PO DAILY [facility] Stop: 09/12/18 08:59 Last Admin: 07/14/18 08:27 Dose: 220 mg Lab - Result Diagrams 07/24/18 05:50 09/13/18 04:45 extubated Cr. more elevated w/ peripheral edema continue wound care Pt. had diverting colostomy CXR still w/ persistent CHF, congestion: f/u CXR schedule for HD today started on Puree diet Nutritional Asmnt/Malnutr-PDOC - Dietary Evaluation Malnutrition Findings (Please click <Entered> for more info): Nutritional Asmnt/Malnutrition Start: 07/13/18 13: 54 Text: Status: Complete Freq: Protocol: Document 07/13/18 13:56 MMULHERN (Rec: 07/13/18 14:10 MMULHERN [id number]) Nutritional Asmnt/Malnutrition Patient General Information Nutritional Screening Consult Diagnosis ESRD, anasarca Pertinent Medical Hx/Surgical Hx Seizure, hep C, diabetes, CAD, HTN, CVA, quadreplegia, Parkinsons, ESRD Subjective Information Consult received for "Diabetic ". Per nursing notes, patient receives hemodialysis MWF and patient is non-verbal. Patient with 2+ pitting edema. Current Diet Order/ Nutrition Support Renal diet Patient / S.O Not Indicated Pertinent Medications D50W, D5-0.45NS @50 ml/hr, Glucagon, Novolog Pertinent Labs (07/13) Na 134, BUN 48, Cr 2.9, glucose 41-137, Ca 8.2, BNP 515, albumin 2 Nutritional Hx/Data Height 1.73 m Height (Calculated Centimeters) 172.7 Current Weight (lbs) 113.852 kg Weight (Calculated Kilograms) 113.9 Weight (Calculated Grams) 052570.7 [place] Body Weight 140 % [place] Body Weight 179 Body Mass Index (BMI) 38.1 Recent Weight Change No Weight Status Morbidly Obese GI Symptoms GI Symptoms None Last BM 07/13 x 1 Difficult in: Chewing Food Allergies No Cultural/Ethnic/Sikhism Belief none indicated Usual diet at home unknown Skin Integrity/Comment: Arian 10, ulceration on sacrum, left lower leg, abrasion on L heel, scar on right leg. Current %PO Good (75-100%) Estimated Nutritional Goals BEE in Kcals: Adj wt of IBW Calories/Kcals/Kg 27-32 kcal/kg (using 76.2kg ADj wt) Kcals Calculated ~9561-8859 kcal/day Protein g/k.2-1.5 gm/kg using Adj wt Protein Calculated ~90-115 gm/day Fluid: ml Per MD due to HD Nutritional Problem 2. Problem Problem Altered nutrition related lab values related to Etiology episodes of hypoglycemia, electrolyte imbalance aeb Signs/Symptoms: Na 134, glucose 41-137, Ca 8.2 1. Problem Problem Increased nutrient needs related to Etiology hypermetabolic state, impaired skin integrity aeb Signs/Symptoms: Pt on Hemodialysis and with multiple ulcerations Intervention/Recommendation Comments 1. Continue Renal diet as tolerated by patient. No need for DM restriction at this time due to hypoglycemia. 2. Consider fluid restriction due to HD, hyponatremia and edema. 3. Consider adding Prosource 1 packet with each meal for an additional 45gm protein. Expected Outcomes/Goals Expected Outcomes/Goals Oral intake >75% of meals, weight stable or trend toward ideal body weight, nutrition related labs WNL
--- NOTE | 2018-07-25 18:45 | Infectious Disease Prog Note ---
Infectious Disease Subjective - Review of Systems Service Date: 07/25/18 Subjective: Debridement of sacral wound and diverting colostomy were performed. Intubated orally, post op. no fever./ Infectious Disease Objective - Results Result Diagrams: 07/24/18 05:50 07/23/18 04:45 Recent Labs: Laboratory Last Values WBC 7.4 Th/cmm (4.8-10.8) 07/24/18 05:50 RBC 2.99 Mil/cmm (3.80-5.10) L 07/24/18 05:50 Hgb 8.7 gm/dL (12-16) L 07/24/18 05:50 Hct 26.4 % (41.0-60) L 07/24/18 05:50 MCV 88.5 fl (81-100) 07/24/18 05:50 MCH 29.1 pg (27.0-31.0) 07/24/18 05:50 MCHC Differential 32.9 pg (28.0-36.0) 07/24/18 05:50 RDW 16.8 % (11.5-20.0) 07/24/18 05:50 Plt Count 130 Th/cmm (150-400) L 07/24/18 05:50 MPV 7.2 fl 07/24/18 05:50 Add Manual Diff YES 07/18/18 09:02 Neutrophils % 44.6 % (40.0-80.0) 07/24/18 05:50 Band Neutrophils % 1 % (0-10) 07/18/18 09:02 Lymphocytes % 41.9 % (20.0-50.0) 07/24/18 05:50 Monocytes % 13.3 % (2.0-10.0) H 07/24/18 05:50 Eosinophils % 0.0 % (0.0-5.0) 07/24/18 05:50 Basophils % 0.2 % (0.0-2.0) 07/24/18 05:50 Neutrophils (Manual) 52 % (40-80) 07/18/18 09:02 Lymphocytes 36 % (20-50) 07/18/18 09:02 Monocytes 11 % (2-10) H 07/18/18 09:02 Eosinophils 0 % (0-5) 07/18/18 09:02 Basophils 0 % (0-3) 07/18/18 09:02 Platelet Estimate DECREASED PLATELETS (NORMAL) 07/18/18 09:02 PT 32.4 SECONDS (9.5-11.5) H 07/25/18 05:20 INR 3.30 (0.5-1.4) H 07/25/18 05:20 PTT (Actin FS) 43.0 SECONDS (26.0-38.0) H 07/20/18 08:08 Specimen Source Arterial 07/23/18 17:00 Sample Site LB 07/23/18 17:00 pH 7.44 (7.35-7.45) 07/23/18 17:00 pCO2 44.0 mmHg (35.0-45.0) 07/23/18 17:00 pO2 86.0 mmHg (80.0-100.0) 07/23/18 17:00 HCO3 28.9 mEq/L (20.0-26.0) H 07/23/18 17:00 Base Excess 5.1 mEq/L (-3.0-3.0) H 07/23/18 17:00 O2 Saturation 97.0 % (92.0-100.0) 07/23/18 17:00 [place] Test NA 07/23/18 17:00 Vent Rate NA 07/23/18 17:00 Inspired O2 40 07/23/18 17:00 Tidal Volume NA 07/23/18 17:00 PEEP NA 07/23/18 17:00 Pressure (ins/psv/peep) NA 07/23/18 17:00 Critical Value E.QUINTEROS 07/23/18 17:00 Sodium 137 mEq/L (136-145) 07/23/18 04:45 Potassium 3.8 mEq/L (3.5-5.1) 07/23/18 04:45 Chloride 107 mEq/L (98-107) 07/23/18 04:45 Carbon Dioxide 20.1 mEq/L (21.0-31.0) L 07/23/18 04:45 Anion Gap 13.7 (7.0-16.0) 07/23/18 04:45 BUN 11 mg/dL (7-25) 07/23/18 04:45 Creatinine 2.3 mg/dL (0.6-1.2) H 07/23/18 04:45 Est GFR ( Amer) 29.0 ml/min (>90) 07/23/18 04:45 Est GFR (Non-Af Amer) 24.0 ml/min 07/23/18 04:45 BUN/Creatinine Ratio 4.8 07/23/18 04:45 Glucose 219 mg/dL (70-105) H 07/23/18 04:45 POC Glucose 222 MG/DL (70 - 105) H 07/25/18 17:08 Whole Bld Lactic Acid 1.29 mmol/L (0.60-1.99) 07/12/18 20:50 Calcium 8.2 mg/dL (8.6-10.3) L 07/23/18 04:45 Magnesium 1.6 mg/dL (1.9-2.7) L 07/21/18 05:00 Total Bilirubin 0.3 mg/dL (0.3-1.0) 07/18/18 05:20 AST 18 U/L (13-39) 07/18/18 05:20 ALT 7 U/L (7-52) 07/18/18 05:20 Alkaline Phosphatase 80 U/L (34-104) 07/18/18 05:20 Creatine Kinase 20 U/L (30-223) L 07/12/18 20:50 Troponin I 0.49 ng/mL (0.01-0.05) H* 07/13/18 15:20 B-Natriuretic Peptide 515.0 pg/mL (5.0-100.0) H 07/13/18 04:00 Total Protein 4.0 gm/dL (6.0-8.3) L 07/18/18 05:20 Albumin < 1.5 gm/dL (3.7-5.3) L 07/18/18 05:20 Globulin 2.5 gm/dL 07/18/18 05:20 Albumin/Globulin Ratio 0.6 (1.0-1.8) L 07/18/18 05:20 Triglycerides 53 mg/dL (<150) 07/13/18 04:00 Cholesterol 41 mg/dL (<200) 07/13/18 04:00 LDL Cholesterol Direct 11 mg/dL (75-193) L 07/13/18 04:00 HDL Cholesterol 24 mg/dL (23-92) 07/13/18 04:00 TSH 1.21 uIU/ml (0.34-5.60) 07/13/18 04:00 Urine Source [place] 07/12/18 20:50 Urine Color YELLOW 07/12/18 20:50 Urine Clarity CLOUDY (CLEAR) H 07/12/18 20:50 Urine pH 8.5 (4.6 - 8.0) 07/12/18 20:50 Ur Specific [place] 1.015 (1.005-1.030) 07/12/18 20:50 Urine Protein 100 mg/dL (NEGATIVE) H 07/12/18 20:50 Urine Glucose (UA) NEGATIVE mg/dL (NEGATIVE) 07/12/18 20:50 Urine Ketones NEGATIVE mg/dL (NEGATIVE) 07/12/18 20:50 Urine Blood TRACE (NEGATIVE) 07/12/18 20:50 Urine Nitrate NEGATIVE (NEGATIVE) 07/12/18 20:50 Urine Bilirubin NEGATIVE (NEGATIVE) 07/12/18 20:50 Urine Urobilinogen 0.2 E.U./dL (0.2 - 1.0) 07/12/18 20:50 Ur Leukocyte Esterase LARGE (NEGATIVE) H 07/12/18 20:50 Urine RBC 2-5 /hpf (0-5) 07/12/18 20:50 Urine WBC >100 /hpf (0-5) H 07/12/18 20:50 Ur Epithelial Cells MODERATE /lpf (FEW) 07/12/18 20:50 Urine Bacteria MANY /hpf (NONE SEEN) H 07/12/18 20:50 Amikacin Peak 17.8 ug/mL (20.0-30.0) L 07/23/18 20:25 Amikacin Trough 6.9 ug/mL (1.0-8.0) 07/23/18 18:00 Random Amikacin 12.7 ug/ml (1.0-30.0) 07/22/18 05:55 Random Vancomycin 25.5 ug/mL (5.0-40.0) 07/24/18 05:50 - Physical Exam Vitals and I&O: Vital Signs Temp 97.5 F 07/25/18 16:00 Pulse 111 07/25/18 16:00 Resp 13 07/25/18 16:00 BP 125/49 07/25/18 16:00 Pulse Ox 100 07/25/18 16:00 Intake & Output 07/24/18 07/25/18 07/25/18 18:59 06:59 18:59 Intake Total 700 150 600 Output Total 145 105 105 Balance 555 45 495 Weight (lbs) 109.769 kg 109.769 kg 109.769 kg Intake: Intake, IV Amount 100 100 Tigecycline 50 mg In 100 100 Sodium Chloride 0.9% 100 ml @ 100 mls/hr IV Q12HR [facility] Rx#:[id number] Oral 600 50 600 Output: Drainage 125 95 100 Sacrum 125 75 colostomy 20 100 Urine 20 10 5 Other: Weight Source Bedscale Bedscale Bedscale Active Medications: Current Medications Acetaminophen (Tylenol) 650 mg PO Q6H PRN PRN Reason: Pain or Fever >101 Stop: 09/11/18 15:14 Albuterol/Ipratropium (Duoneb Neb) 3 ml HHN Q4HRT PRN PRN Reason: Shortness of Breath or Wheeze Stop: 09/11/18 15:14 Albuterol/Ipratropium (Duoneb Neb) 3 ml HHN Q6HRT [facility] Stop: 09/21/18 18:59 Last Admin: 07/25/18 13:51 Dose: 3 ml Ascorbic Acid (Vitamin C) 500 mg PO DAILY [facility] Stop: 09/12/18 08:59 Last Admin: 07/25/18 08:47 Dose: 500 mg Atorvastatin Calcium (Lipitor) 20 mg PO HS [facility] Stop: 09/11/18 20:59 Last Admin: 07/24/18 20:59 Dose: 20 mg [place] Oil/Maldivian Balsam/Trypsin (Venelex) 1 appl TP DAILY [facility] Stop: 09/13/18 08:59 Last Admin: 07/25/18 09:00 Dose: Not Given Dextrose (Glutose 40%) 18.75 gm PO PRN PRN PRN Reason: Blood Glucose less than 70 Stop: 09/11/18 04:10 Docusate Sodium (Colace) 100 mg PO BID [facility] Stop: 09/11/18 16:59 Last Admin: 07/25/18 17:18 Dose: 100 mg Famotidine (Pepcid) 20 mg PO DAILY [facility] Stop: 09/12/18 08:59 Last Admin: 07/25/18 08:48 Dose: 20 mg Folic Acid (Folate) 1 mg PO DAILY [facility] Stop: 09/12/18 08:59 Last Admin: 07/25/18 08:48 Dose: 1 mg Glucagon (Glucagen) 1 mg IM PRN PRN PRN Reason: Blood Glucose less than 70 Stop: 09/11/18 04:10 Heparin Sodium (Porcine) (Heparin) 5,000 units SUBQ Q12HR [facility] Stop: 09/17/18 20:59 Last Admin: 07/25/18 08:48 Dose: 5,000 units Hydromorphone HCl (Dilaudid) 1 mg IVP Q4HR PRN PRN Reason: Pain (Severe) Stop: 09/20/18 20:12 Last Admin: 07/25/18 12:00 Dose: 1 mg Tigecycline 50 mg/ Sodium (Chloride) 100 mls @ 100 mls/hr IV Q12HR [facility] Stop: 09/17/18 19:44 Last Admin: 07/25/18 08:48 Dose: 100 mls/hr Norepinephrine Bitartrate 4 mg (/ Dextrose) 254 mls @ 38.1 mls/hr IV TITR PRN; Protocol PRN Reason: BP MAINTENANCE (PER PROTOCOL) Stop: 09/21/18 14:18 Last Titration: 07/24/18 04:10 Dose: 0 mcg/min, 0 mls/hr Insulin Aspart (Novolog Insulin Sliding Scale) 0 units SUBQ Q6HR [facility]; Protocol Stop: 09/11/18 05:59 Last Admin: 07/25/18 17:18 Dose: 4 units Lactobacillus Rhamnosus (Culturelle 15b) 1 each PO DAILY [facility] Stop: 09/13/18 13:59 Last Admin: 07/25/18 08:46 Dose: 1 each Levothyroxine Sodium (Synthroid) 0.025 mg PO QDAC [facility] Stop: 09/12/18 07:29 Last Admin: 07/25/18 08:46 Dose: 0.025 mg Miscellaneous (Probiotic Screen) 1 ea MC PRN PRN PRN Reason: PROTOCOL Stop: 09/13/18 11:44 Miscellaneous (Amikacin Iv Per Pharmacy) 1 ea PRN PRN PRN Reason: PROTOCOL Stop: 09/13/18 18:08 Oxcarbazepine (Trileptal) 600 mg PO BID [facility] Stop: 09/11/18 16:59 Last Admin: 07/25/18 17:18 Dose: 600 mg Risperidone (Risperdal) 2 mg PO HS [facility] Stop: 09/11/18 20:59 Last Admin: 07/24/18 20:59 Dose: 2 mg Senna (Senna) 17.2 mg PO BID [facility] Stop: 09/11/18 16:59 Last Admin: 07/25/18 17:18 Dose: 17.2 mg Sevelamer Carbonate (Renvela) 800 mg PO TIDWM [facility] Stop: 09/11/18 16:59 Last Admin: 07/25/18 17:18 Dose: 800 mg Vitamin B Complex/Vit C/Folic Acid (Vitamin B Complex W/Vitamin C) 1 tab PO DAILY [facility] Stop: 09/12/18 08:59 Last Admin: 07/25/18 08:48 Dose: 1 tab Zinc Sulfate (Zinc Sulfate) 220 mg PO DAILY [facility] Stop: 09/12/18 08:59 Last Admin: 07/25/18 08:47 Dose: 220 mg General: no acute distress, well developed, well nourished HEENT: atraumatic, normocephalic, PERRLA Neck: supple, no thyromegaly Cardiovascular: S1S2, regular Lungs: clear to auscultation bilaterally, clear to percussion Abdomen: soft, other (colostomy ok), no tender, no distended Extremities: no cyanosis, no clubbing, no edema Neurological: awake, alert, oriented Skin: other (sacral wound) - Procedures Procedures: Procedures Procedure Code Date BYPASS DESCENDING COLON TO CUTANEOUS, OPEN APPROACH [id number] 07/12/18 EXCISION OF L LOW LEG SUBCU/FASCIA, OPEN APPROACH [id number] 07/12/18 EXCISION OF SACRUM, OPEN APPROACH [id number] 07/12/18 EXCISION OF SIGMOID COLON, OPEN APPROACH [id number] 07/12/18 RESPIRATORY VENTILATION, LESS THAN 24 CONSECUTIVE HOURS [id number] 07/12/18 Infectious Disease Assmt/Plan - Problem List Patient Problems: All Active Problems Anasarca (Acute) R60.1 Anemia (Acute) D64.9 CAD (coronary artery disease) (Acute) I25.10 CHF (congestive heart failure) (Acute) I50.9 CKD (chronic kidney disease) (Acute) N18.9 HTN (hypertension) (Acute) I10 UTI (urinary tract infection) (Acute) sacral stage 4 wound (Acute) - Assessment Assessment: 1. UTI 2. Staph CN in blood contaminant. 3. Hypoglycemia. 4. Diabetes mellitus type 1 with episodes of hypoglycemia. 5. Hypertension. 6. Anemia of chronic disease. 7. Coronary artery disease, 8. CHF.. 9. Anasarca 10. 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 11. sacral stage 4 wound. No evidence of osteimyelitis, 12. S/p Diverting colostomy. - Plan Plan: Continue amikacin and tygacil for 5 days. wound care. Nutritional Asmnt/Malnutr-PDOC - Dietary Evaluation Malnutrition Findings (Please click <Entered> for more info): Nutritional Asmnt/Malnutrition Start: 07/13/18 13: 54 Text: Status: Complete Freq: Protocol: Document 07/13/18 13:56 MMULHERN (Rec: 07/13/18 14:10 [email or web address] [id number]) Nutritional Asmnt/Malnutrition Patient General Information Nutritional Screening Consult Diagnosis ESRD, anasarca Pertinent Medical Hx/Surgical Hx Seizure, hep C, diabetes, CAD, HTN, CVA, quadreplegia, Parkinsons, ESRD Subjective Information Consult received for "Diabetic ". Per nursing notes, patient receives hemodialysis MWF and patient is non-verbal. Patient with 2+ pitting edema. Current Diet Order/ Nutrition Support Renal diet Patient / S.O Not Indicated Pertinent Medications D50W, D5-0.45NS @50 ml/hr, Glucagon, Novolog Pertinent Labs (07/13) Na 134, BUN 48, Cr 2.9, glucose 41-137, Ca 8.2, BNP 515, albumin 2 Nutritional Hx/Data Height 1.73 m Height (Calculated Centimeters) 172.7 Current Weight (lbs) 113.852 kg Weight (Calculated Kilograms) 113.9 Weight (Calculated Grams) 652189.7 [place] Body Weight 140 % [place] Body Weight 179 Body Mass Index (BMI) 38.1 Recent Weight Change No Weight Status Morbidly Obese GI Symptoms GI Symptoms None Last BM 07/13 x 1 Difficult in: Chewing Food Allergies No Cultural/Ethnic/Lutheran Belief none indicated Usual diet at home unknown Skin Integrity/Comment: Arian 10, ulceration on sacrum, left lower leg, abrasion on L heel, scar on right leg. Current %PO Good (75-100%) Estimated Nutritional Goals BEE in Kcals: Adj wt of IBW Calories/Kcals/Kg 27-32 kcal/kg (using 76.2kg ADj wt) Kcals Calculated ~7515-8387 kcal/day Protein g/k.2-1.5 gm/kg using Adj wt Protein Calculated ~90-115 gm/day Fluid: ml Per MD due to HD Nutritional Problem 2. Problem Problem Altered nutrition related lab values related to Etiology episodes of hypoglycemia, electrolyte imbalance aeb Signs/Symptoms: Na 134, glucose 41-137, Ca 8.2 1. Problem Problem Increased nutrient needs related to Etiology hypermetabolic state, impaired skin integrity aeb Signs/Symptoms: Pt on Hemodialysis and with multiple ulcerations Intervention/Recommendation Comments 1. Continue Renal diet as tolerated by patient. No need for DM restriction at this time due to hypoglycemia. 2. Consider fluid restriction due to HD, hyponatremia and edema. 3. Consider adding Prosource 1 packet with each meal for an additional 45gm protein. Expected Outcomes/Goals Expected Outcomes/Goals Oral intake >75% of meals, weight stable or trend toward ideal body weight, nutrition related labs WNL
--- NOTE | 2018-07-25 19:21 | Progress Notes ---
DATE: 07/25/2018 SUBJECTIVE: The patient was seen in ICU. The patient is more awake and alert, episodes of forgetful. Denies any pain or discomfort, able to tolerate medications and current diet. Episodic pain on the sacral area. Otherwise, the patient appears to be in no acute distress. OBJECTIVE: VITAL SIGNS: Temperature 97.2, heart rate of 78, blood pressure 135/58, respiration of 18 and 100% on 3 liters via nasal cannula. HEENT: Head is atraumatic and normocephalic. Eyes: Bilateral conjunctivae are clear. Bilateral pupils are equally round and reactive. NECK: Supple. No JVD. CARDIOVASCULAR: S1 and S2, without murmur, sinus rhythm on the monitor. PULMONARY: Decreased breath sounds bilaterally. GASTROINTESTINAL: Soft and nontender without guarding. Positive bowel sounds. MUSCULOSKELETAL: Bilateral lower extremities edema noted. No clubbing. No cyanosis. ASSESSMENT: 1. Congestive heart failure. 2. End-stage renal disease, hemodialysis dependent. 3. Status post diverting colostomy. 4. Status post sacral wound debridement. PLAN: We will keep the patient inpatient. We will continue hemodialysis as scheduled. We will continue current antibiotics and we will provide pain management as needed. Treatment plans were discussed with the patient's nurse. Treatment plans were discussed with Dr. Parkinson. JOB# [id number]
[2018-07-25] MEDS: Atorvastatin Calcium 10 MG TAB PO SCH (20:57)
[2018-07-26] MEDS: Albuterol/Ipratropium Neb 3 ML AERS HHN SCH ×4 (01:15→19:11)
[2018-07-26] MEDS: HYDROmorphone 1 mg/mL 1mL Syr IVP PRN (04:44)
[2018-07-26] MEDS: INSULIN ASPART SLIDING SCALE 100 UNITS/ML UNIT SUBQ SCH ×3 (06:33→17:09)
[2018-07-26] MEDS: Levothyroxine 0.025 Mg Tab PO SCH (07:47)
[2018-07-26] MEDS: Docusate Sodium 100 mg/10 mL UD PO SCH ×2 (08:54→17:09)
[2018-07-26] MEDS: Lactobacillus Rhamnosus GG 15 Billion CFU CAP.SPRINK PO SCH (08:55)
[2018-07-26] MEDS: Vitamin B Complex w/Vitamin C Tab PO SCH (08:55)
[2018-07-26] MEDS: Venelex 60gm Tube TP SCH (08:58)
--- NOTE | 2018-07-26 09:34 | Diagnostic Imaging Report ---
Portable chest x-ray HISTORY: Shortness of breath Compared with the prior exam of 07/22/2018, patient is rotated. Heart size difficult to assess. There has developed density in the left lower hemithorax consistent with a pleural effusion. IMPRESSION: 1. Findings consistent with development of a new left pleural effusion 2. Status post removal endotracheal tube
--- NOTE | 2018-07-26 12:23 | General Progress Note ---
Subjective - Review of Systems Events since last encounter: s/p Debridement of sacral wound s/p diverting colostomy performed patient is Intubated orally in no distress Objective - Results Result Diagrams: 07/24/18 05:50 07/23/18 04:45 Recent Labs: Laboratory Last Values WBC 7.4 Th/cmm (4.8-10.8) 07/24/18 05:50 RBC 2.99 Mil/cmm (3.80-5.10) L 07/24/18 05:50 Hgb 8.7 gm/dL (12-16) L 07/24/18 05:50 Hct 26.4 % (41.0-60) L 07/24/18 05:50 MCV 88.5 fl (81-100) 07/24/18 05:50 MCH 29.1 pg (27.0-31.0) 07/24/18 05:50 MCHC Differential 32.9 pg (28.0-36.0) 07/24/18 05:50 RDW 16.8 % (11.5-20.0) 07/24/18 05:50 Plt Count 130 Th/cmm (150-400) L 07/24/18 05:50 MPV 7.2 fl 07/24/18 05:50 Add Manual Diff YES 07/18/18 09:02 Neutrophils % 44.6 % (40.0-80.0) 07/24/18 05:50 Band Neutrophils % 1 % (0-10) 07/18/18 09:02 Lymphocytes % 41.9 % (20.0-50.0) 07/24/18 05:50 Monocytes % 13.3 % (2.0-10.0) H 07/24/18 05:50 Eosinophils % 0.0 % (0.0-5.0) 07/24/18 05:50 Basophils % 0.2 % (0.0-2.0) 07/24/18 05:50 Neutrophils (Manual) 52 % (40-80) 07/18/18 09:02 Lymphocytes 36 % (20-50) 07/18/18 09:02 Monocytes 11 % (2-10) H 07/18/18 09:02 Eosinophils 0 % (0-5) 07/18/18 09:02 Basophils 0 % (0-3) 07/18/18 09:02 Platelet Estimate DECREASED PLATELETS (NORMAL) 07/18/18 09:02 PT 32.4 SECONDS (9.5-11.5) H 07/25/18 05:20 INR 3.30 (0.5-1.4) H 07/25/18 05:20 PTT (Actin FS) 43.0 SECONDS (26.0-38.0) H 07/20/18 08:08 Specimen Source Arterial 07/23/18 17:00 Sample Site LB 07/23/18 17:00 pH 7.44 (7.35-7.45) 07/23/18 17:00 pCO2 44.0 mmHg (35.0-45.0) 07/23/18 17:00 pO2 86.0 mmHg (80.0-100.0) 07/23/18 17:00 HCO3 28.9 mEq/L (20.0-26.0) H 07/23/18 17:00 Base Excess 5.1 mEq/L (-3.0-3.0) H 07/23/18 17:00 O2 Saturation 97.0 % (92.0-100.0) 07/23/18 17:00 [place] Test NA 07/23/18 17:00 Vent Rate NA 07/23/18 17:00 Inspired O2 40 07/23/18 17:00 Tidal Volume NA 07/23/18 17:00 PEEP NA 07/23/18 17:00 Pressure (ins/psv/peep) NA 07/23/18 17:00 Critical Value E.QUINTEROS 07/23/18 17:00 Sodium 137 mEq/L (136-145) 07/23/18 04:45 Potassium 3.8 mEq/L (3.5-5.1) 07/23/18 04:45 Chloride 107 mEq/L (98-107) 07/23/18 04:45 Carbon Dioxide 20.1 mEq/L (21.0-31.0) L 07/23/18 04:45 Anion Gap 13.7 (7.0-16.0) 07/23/18 04:45 BUN 11 mg/dL (7-25) 07/23/18 04:45 Creatinine 2.3 mg/dL (0.6-1.2) H 07/23/18 04:45 Est GFR ( Amer) 29.0 ml/min (>90) 07/23/18 04:45 Est GFR (Non-Af Amer) 24.0 ml/min 07/23/18 04:45 BUN/Creatinine Ratio 4.8 07/23/18 04:45 Glucose 219 mg/dL (70-105) H 07/23/18 04:45 POC Glucose 214 MG/DL (70 - 105) H 07/26/18 11:50 Whole Bld Lactic Acid 1.29 mmol/L (0.60-1.99) 07/12/18 20:50 Calcium 8.2 mg/dL (8.6-10.3) L 07/23/18 04:45 Magnesium 1.6 mg/dL (1.9-2.7) L 07/21/18 05:00 Total Bilirubin 0.3 mg/dL (0.3-1.0) 07/18/18 05:20 AST 18 U/L (13-39) 07/18/18 05:20 ALT 7 U/L (7-52) 07/18/18 05:20 Alkaline Phosphatase 80 U/L (34-104) 07/18/18 05:20 Creatine Kinase 20 U/L (30-223) L 07/12/18 20:50 Troponin I 0.49 ng/mL (0.01-0.05) H* 07/13/18 15:20 B-Natriuretic Peptide 515.0 pg/mL (5.0-100.0) H 07/13/18 04:00 Total Protein 4.0 gm/dL (6.0-8.3) L 07/18/18 05:20 Albumin < 1.5 gm/dL (3.7-5.3) L 07/18/18 05:20 Globulin 2.5 gm/dL 07/18/18 05:20 Albumin/Globulin Ratio 0.6 (1.0-1.8) L 07/18/18 05:20 Triglycerides 53 mg/dL (<150) 07/13/18 04:00 Cholesterol 41 mg/dL (<200) 07/13/18 04:00 LDL Cholesterol Direct 11 mg/dL (75-193) L 07/13/18 04:00 HDL Cholesterol 24 mg/dL (23-92) 07/13/18 04:00 TSH 1.21 uIU/ml (0.34-5.60) 07/13/18 04:00 Urine Source [place] 07/12/18 20:50 Urine Color YELLOW 07/12/18 20:50 Urine Clarity CLOUDY (CLEAR) H 07/12/18 20:50 Urine pH 8.5 (4.6 - 8.0) 07/12/18 20:50 Ur Specific [place] 1.015 (1.005-1.030) 07/12/18 20:50 Urine Protein 100 mg/dL (NEGATIVE) H 07/12/18 20:50 Urine Glucose (UA) NEGATIVE mg/dL (NEGATIVE) 07/12/18 20:50 Urine Ketones NEGATIVE mg/dL (NEGATIVE) 07/12/18 20:50 Urine Blood TRACE (NEGATIVE) 07/12/18 20:50 Urine Nitrate NEGATIVE (NEGATIVE) 07/12/18 20:50 Urine Bilirubin NEGATIVE (NEGATIVE) 07/12/18 20:50 Urine Urobilinogen 0.2 E.U./dL (0.2 - 1.0) 07/12/18 20:50 Ur Leukocyte Esterase LARGE (NEGATIVE) H 07/12/18 20:50 Urine RBC 2-5 /hpf (0-5) 07/12/18 20:50 Urine WBC >100 /hpf (0-5) H 07/12/18 20:50 Ur Epithelial Cells MODERATE /lpf (FEW) 07/12/18 20:50 Urine Bacteria MANY /hpf (NONE SEEN) H 07/12/18 20:50 Amikacin Peak 17.8 ug/mL (20.0-30.0) L 07/23/18 20:25 Amikacin Trough 6.9 ug/mL (1.0-8.0) 07/23/18 18:00 Random Amikacin 14.8 ug/ml (1.0-30.0) 07/25/18 17:00 Random Vancomycin 25.5 ug/mL (5.0-40.0) 07/24/18 05:50 - Physical Exam Vitals and I&O: Vital Signs Temp 97.2 F 07/26/18 08:00 Pulse 109 07/26/18 08:00 Resp 13 07/26/18 08:00 BP 91/32 07/26/18 08:00 Pulse Ox 99 07/26/18 06:57 Intake & Output 07/25/18 07/26/18 07/26/18 18:59 06:59 18:59 Intake Total 600 600 100 Output Total 105 650 Balance 495 -50 100 Weight (lbs) 109.769 kg 109.769 kg Intake: Intake, IV Amount 200 100 Tigecycline 50 mg In 200 100 Sodium Chloride 0.9% 100 ml @ 100 mls/hr IV Q12HR [facility] Rx#:[id number] Oral 600 400 Output: Drainage 100 650 Sacrum 50 colostomy 100 600 Urine 5 0 Other: Weight Source Bedscale Bedscale Active Medications: Current Medications Acetaminophen (Tylenol) 650 mg PO Q6H PRN PRN Reason: Pain or Fever >101 Stop: 09/11/18 15:14 Albuterol/Ipratropium (Duoneb Neb) 3 ml HHN Q4HRT PRN PRN Reason: Shortness of Breath or Wheeze Stop: 09/11/18 15:14 Albuterol/Ipratropium (Duoneb Neb) 3 ml HHN Q6HRT [facility] Stop: 09/21/18 18:59 Last Admin: 07/26/18 06:56 Dose: 3 ml Ascorbic Acid (Vitamin C) 500 mg PO DAILY [facility] Stop: 09/12/18 08:59 Last Admin: 07/26/18 08:55 Dose: 500 mg Atorvastatin Calcium (Lipitor) 20 mg PO HS [facility] Stop: 09/11/18 20:59 Last Admin: 07/25/18 20:57 Dose: 20 mg [place] Oil/[place]izen [place] Balsam/Trypsin (Venelex) 1 appl TP DAILY [facility] Stop: 09/13/18 08:59 Last Admin: 07/26/18 08:58 Dose: 1 appl Dextrose (Glutose 40%) 18.75 gm PO PRN PRN PRN Reason: Blood Glucose less than 70 Stop: 09/11/18 04:10 Docusate Sodium (Colace) 100 mg PO BID [facility] Stop: 09/11/18 16:59 Last Admin: 07/26/18 08:54 Dose: 100 mg Famotidine (Pepcid) 20 mg PO DAILY [facility] Stop: 09/12/18 08:59 Last Admin: 07/26/18 08:55 Dose: 20 mg Folic Acid (Folate) 1 mg PO DAILY [facility] Stop: 09/12/18 08:59 Last Admin: 07/26/18 08:55 Dose: 1 mg Glucagon (Glucagen) 1 mg IM PRN PRN PRN Reason: Blood Glucose less than 70 Stop: 09/11/18 04:10 Heparin Sodium (Porcine) (Heparin) 5,000 units SUBQ Q12HR [facility] Stop: 09/17/18 20:59 Last Admin: 07/26/18 08:55 Dose: 5,000 units Hydromorphone HCl (Dilaudid) 1 mg IVP Q4HR PRN PRN Reason: Pain (Severe) Stop: 09/20/18 20:12 Last Admin: 07/26/18 04:44 Dose: 1 mg Tigecycline 50 mg/ Sodium (Chloride) 100 mls @ 100 mls/hr IV Q12HR [facility] Stop: 09/17/18 19:44 Last Infusion: 07/26/18 10:00 Dose: Infused Norepinephrine Bitartrate 4 mg (/ Dextrose) 254 mls @ 38.1 mls/hr IV TITR PRN; Protocol PRN Reason: BP MAINTENANCE (PER PROTOCOL) Stop: 09/21/18 14:18 Last Titration: 07/24/18 04:10 Dose: 0 mcg/min, 0 mls/hr Insulin Aspart (Novolog Insulin Sliding Scale) 0 units SUBQ Q6HR [facility]; Protocol Stop: 09/11/18 05:59 Last Admin: 07/26/18 06:33 Dose: 4 units Lactobacillus Rhamnosus (Culturelle 15b) 1 each PO DAILY [facility] Stop: 09/13/18 13:59 Last Admin: 07/26/18 08:55 Dose: 1 each Levothyroxine Sodium (Synthroid) 0.025 mg PO QDAC [facility] Stop: 09/12/18 07:29 Last Admin: 07/26/18 07:47 Dose: 0.025 mg Miscellaneous (Probiotic Screen) 1 ea MC PRN PRN PRN Reason: PROTOCOL Stop: 09/13/18 11:44 Miscellaneous (Amikacin Iv Per Pharmacy) 1 ea MC PRN PRN PRN Reason: PROTOCOL Stop: 09/13/18 18:08 Oxcarbazepine (Trileptal) 600 mg PO BID [facility] Stop: 09/11/18 16:59 Last Admin: 07/26/18 08:55 Dose: 600 mg Risperidone (Risperdal) 2 mg PO HS [facility] Stop: 09/11/18 20:59 Last Admin: 07/25/18 21:00 Dose: Not Given Senna (Senna) 17.2 mg PO BID [facility] Stop: 09/11/18 16:59 Last Admin: 07/26/18 08:54 Dose: 17.2 mg Sevelamer Carbonate (Renvela) 800 mg PO TIDWM [facility] Stop: 09/11/18 16:59 Last Admin: 07/26/18 08:55 Dose: 800 mg Vitamin B Complex/Vit C/Folic Acid (Vitamin B Complex W/Vitamin C) 1 tab PO DAILY [facility] Stop: 09/12/18 08:59 Last Admin: 07/26/18 08:55 Dose: 1 tab Zinc Sulfate (Zinc Sulfate) 220 mg PO DAILY [facility] Stop: 09/12/18 08:59 Last Admin: 07/26/18 08:55 Dose: 220 mg General: Alert, Mild distress HEENT: Atraumatic, EOMI Neck: Supple, +2 carotid pulse wo bruit Cardiovascular: Regular rate, Normal S1, Normal S2 Lungs: Other (scattered rhonchi) Abdomen: Bowel sounds, Soft Extremities: Edema ((+) 2-3 edema), Other ((+) 2 bipedal edema) Neurological: Sensation intact Skin: no Rash Psych/Mental Status: Mood NL - Procedures Procedures: Procedures Procedure Code Date BYPASS DESCENDING COLON TO CUTANEOUS, OPEN APPROACH [id number] 07/12/18 EXCISION OF L LOW LEG SUBCU/FASCIA, OPEN APPROACH [id number] 07/12/18 EXCISION OF SACRUM, OPEN APPROACH [id number] 07/12/18 EXCISION OF SIGMOID COLON, OPEN APPROACH [id number] 07/12/18 RESPIRATORY VENTILATION, LESS THAN 24 CONSECUTIVE HOURS [id number] 07/12/18 Assessment/Plan - Problem List Patient Problems: All Active Problems Anasarca (Acute) R60.1 Anemia (Acute) D64.9 CAD (coronary artery disease) (Acute) I25.10 CHF (congestive heart failure) (Acute) I50.9 CKD (chronic kidney disease) (Acute) N18.9 HTN (hypertension) (Acute) I10 UTI (urinary tract infection) (Acute) sacral stage 4 wound (Acute) - Plan Plan: as per order sheet Nutritional Asmnt/Malnutr-PDOC - Dietary Evaluation Malnutrition Findings (Please click <Entered> for more info): Nutritional Asmnt/Malnutrition Start: 07/13/18 13: 54 Text: Status: Complete Freq: Protocol: Document 07/13/18 13:56 ALDAIR (Rec: 07/13/18 14:10 ALDAIR [id number]) Nutritional Asmnt/Malnutrition Patient General Information Nutritional Screening Consult Diagnosis ESRD, anasarca Pertinent Medical Hx/Surgical Hx Seizure, hep C, diabetes, CAD, HTN, CVA, quadreplegia, Parkinsons, ESRD Subjective Information Consult received for "Diabetic ". Per nursing notes, patient receives hemodialysis MWF and patient is non-verbal. Patient with 2+ pitting edema. Current Diet Order/ Nutrition Support Renal diet Patient / S.O Not Indicated Pertinent Medications D50W, D5-0.45NS @50 ml/hr, Glucagon, Novolog Pertinent Labs (07/13) Na 134, BUN 48, Cr 2.9, glucose 41-137, Ca 8.2, BNP 515, albumin 2 Nutritional Hx/Data Height 1.73 m Height (Calculated Centimeters) 172.7 Current Weight (lbs) 113.852 kg Weight (Calculated Kilograms) 113.9 Weight (Calculated Grams) 336969.7 [place] Body Weight 140 % [place] Body Weight 179 Body Mass Index (BMI) 38.1 Recent Weight Change No Weight Status Morbidly Obese GI Symptoms GI Symptoms None Last BM 07/13 x 1 Difficult in: Chewing Food Allergies No Cultural/Ethnic/Mormon Belief none indicated Usual diet at home unknown Skin Integrity/Comment: Arian 10, ulceration on sacrum, left lower leg, abrasion on L heel, scar on right leg. Current %PO Good (75-100%) Estimated Nutritional Goals BEE in Kcals: Adj wt of IBW Calories/Kcals/Kg 27-32 kcal/kg (using 76.2kg ADj wt) Kcals Calculated ~4770-9601 kcal/day Protein g/k.2-1.5 gm/kg using Adj wt Protein Calculated ~90-115 gm/day Fluid: ml Per MD due to HD Nutritional Problem 2. Problem Problem Altered nutrition related lab values related to Etiology episodes of hypoglycemia, electrolyte imbalance aeb Signs/Symptoms: Na 134, glucose 41-137, Ca 8.2 1. Problem Problem Increased nutrient needs related to Etiology hypermetabolic state, impaired skin integrity aeb Signs/Symptoms: Pt on Hemodialysis and with multiple ulcerations Intervention/Recommendation Comments 1. Continue Renal diet as tolerated by patient. No need for DM restriction at this time due to hypoglycemia. 2. Consider fluid restriction due to HD, hyponatremia and edema. 3. Consider adding Prosource 1 packet with each meal for an additional 45gm protein. Expected Outcomes/Goals Expected Outcomes/Goals Oral intake >75% of meals, weight stable or trend toward ideal body weight, nutrition related labs WNL
--- NOTE | 2018-07-26 14:11 | General Progress Note ---
Subjective - Review of Systems Service Date: 07/26/18 Subjective: alert, comfortable, on puree diet, nods head Objective - Results Result Diagrams: 07/24/18 05:50 07/23/18 04:45 Recent Labs: Laboratory Last Values WBC 7.4 Th/cmm (4.8-10.8) 07/24/18 05:50 RBC 2.99 Mil/cmm (3.80-5.10) L 07/24/18 05:50 Hgb 8.7 gm/dL (12-16) L 07/24/18 05:50 Hct 26.4 % (41.0-60) L 07/24/18 05:50 MCV 88.5 fl (81-100) 07/24/18 05:50 MCH 29.1 pg (27.0-31.0) 07/24/18 05:50 MCHC Differential 32.9 pg (28.0-36.0) 07/24/18 05:50 RDW 16.8 % (11.5-20.0) 07/24/18 05:50 Plt Count 130 Th/cmm (150-400) L 07/24/18 05:50 MPV 7.2 fl 07/24/18 05:50 Add Manual Diff YES 07/18/18 09:02 Neutrophils % 44.6 % (40.0-80.0) 07/24/18 05:50 Band Neutrophils % 1 % (0-10) 07/18/18 09:02 Lymphocytes % 41.9 % (20.0-50.0) 07/24/18 05:50 Monocytes % 13.3 % (2.0-10.0) H 07/24/18 05:50 Eosinophils % 0.0 % (0.0-5.0) 07/24/18 05:50 Basophils % 0.2 % (0.0-2.0) 07/24/18 05:50 Neutrophils (Manual) 52 % (40-80) 07/18/18 09:02 Lymphocytes 36 % (20-50) 07/18/18 09:02 Monocytes 11 % (2-10) H 07/18/18 09:02 Eosinophils 0 % (0-5) 07/18/18 09:02 Basophils 0 % (0-3) 07/18/18 09:02 Platelet Estimate DECREASED PLATELETS (NORMAL) 07/18/18 09:02 PT 32.4 SECONDS (9.5-11.5) H 07/25/18 05:20 INR 3.30 (0.5-1.4) H 07/25/18 05:20 PTT (Actin FS) 43.0 SECONDS (26.0-38.0) H 07/20/18 08:08 Specimen Source Arterial 07/23/18 17:00 Sample Site LB 07/23/18 17:00 pH 7.44 (7.35-7.45) 07/23/18 17:00 pCO2 44.0 mmHg (35.0-45.0) 07/23/18 17:00 pO2 86.0 mmHg (80.0-100.0) 07/23/18 17:00 HCO3 28.9 mEq/L (20.0-26.0) H 07/23/18 17:00 Base Excess 5.1 mEq/L (-3.0-3.0) H 07/23/18 17:00 O2 Saturation 97.0 % (92.0-100.0) 07/23/18 17:00 [place] Test NA 07/23/18 17:00 Vent Rate NA 07/23/18 17:00 Inspired O2 40 07/23/18 17:00 Tidal Volume NA 07/23/18 17:00 PEEP NA 07/23/18 17:00 Pressure (ins/psv/peep) NA 07/23/18 17:00 Critical Value E.QUINTEROS 07/23/18 17:00 Sodium 137 mEq/L (136-145) 07/23/18 04:45 Potassium 3.8 mEq/L (3.5-5.1) 07/23/18 04:45 Chloride 107 mEq/L (98-107) 07/23/18 04:45 Carbon Dioxide 20.1 mEq/L (21.0-31.0) L 07/23/18 04:45 Anion Gap 13.7 (7.0-16.0) 07/23/18 04:45 BUN 11 mg/dL (7-25) 07/23/18 04:45 Creatinine 2.3 mg/dL (0.6-1.2) H 07/23/18 04:45 Est GFR ( Amer) 29.0 ml/min (>90) 07/23/18 04:45 Est GFR (Non-Af Amer) 24.0 ml/min 07/23/18 04:45 BUN/Creatinine Ratio 4.8 07/23/18 04:45 Glucose 219 mg/dL (70-105) H 07/23/18 04:45 POC Glucose 214 MG/DL (70 - 105) H 07/26/18 11:50 Whole Bld Lactic Acid 1.29 mmol/L (0.60-1.99) 07/12/18 20:50 Calcium 8.2 mg/dL (8.6-10.3) L 07/23/18 04:45 Magnesium 1.6 mg/dL (1.9-2.7) L 07/21/18 05:00 Total Bilirubin 0.3 mg/dL (0.3-1.0) 07/18/18 05:20 AST 18 U/L (13-39) 07/18/18 05:20 ALT 7 U/L (7-52) 07/18/18 05:20 Alkaline Phosphatase 80 U/L (34-104) 07/18/18 05:20 Creatine Kinase 20 U/L (30-223) L 07/12/18 20:50 Troponin I 0.49 ng/mL (0.01-0.05) H* 07/13/18 15:20 B-Natriuretic Peptide 515.0 pg/mL (5.0-100.0) H 07/13/18 04:00 Total Protein 4.0 gm/dL (6.0-8.3) L 07/18/18 05:20 Albumin < 1.5 gm/dL (3.7-5.3) L 07/18/18 05:20 Globulin 2.5 gm/dL 07/18/18 05:20 Albumin/Globulin Ratio 0.6 (1.0-1.8) L 07/18/18 05:20 Triglycerides 53 mg/dL (<150) 07/13/18 04:00 Cholesterol 41 mg/dL (<200) 07/13/18 04:00 LDL Cholesterol Direct 11 mg/dL (75-193) L 07/13/18 04:00 HDL Cholesterol 24 mg/dL (23-92) 07/13/18 04:00 TSH 1.21 uIU/ml (0.34-5.60) 07/13/18 04:00 Urine Source [place] 07/12/18 20:50 Urine Color YELLOW 07/12/18 20:50 Urine Clarity CLOUDY (CLEAR) H 07/12/18 20:50 Urine pH 8.5 (4.6 - 8.0) 07/12/18 20:50 Ur Specific [place] 1.015 (1.005-1.030) 07/12/18 20:50 Urine Protein 100 mg/dL (NEGATIVE) H 07/12/18 20:50 Urine Glucose (UA) NEGATIVE mg/dL (NEGATIVE) 07/12/18 20:50 Urine Ketones NEGATIVE mg/dL (NEGATIVE) 07/12/18 20:50 Urine Blood TRACE (NEGATIVE) 07/12/18 20:50 Urine Nitrate NEGATIVE (NEGATIVE) 07/12/18 20:50 Urine Bilirubin NEGATIVE (NEGATIVE) 07/12/18 20:50 Urine Urobilinogen 0.2 E.U./dL (0.2 - 1.0) 07/12/18 20:50 Ur Leukocyte Esterase LARGE (NEGATIVE) H 07/12/18 20:50 Urine RBC 2-5 /hpf (0-5) 07/12/18 20:50 Urine WBC >100 /hpf (0-5) H 07/12/18 20:50 Ur Epithelial Cells MODERATE /lpf (FEW) 07/12/18 20:50 Urine Bacteria MANY /hpf (NONE SEEN) H 07/12/18 20:50 Amikacin Peak 17.8 ug/mL (20.0-30.0) L 07/23/18 20:25 Amikacin Trough 6.9 ug/mL (1.0-8.0) 07/23/18 18:00 Random Amikacin 14.8 ug/ml (1.0-30.0) 07/25/18 17:00 Random Vancomycin 25.5 ug/mL (5.0-40.0) 07/24/18 05:50 - Physical Exam Vitals and I&O: Vital Signs Temp 97.2 F 07/26/18 08:00 Pulse 104 07/26/18 13:53 Resp 18 07/26/18 13:53 BP 91/32 07/26/18 08:00 Pulse Ox 100 07/26/18 13:53 Intake & Output 09/07/26/18 07/26/18 18:59 06:59 18:59 Intake Total 600 600 100 Output Total 105 650 Balance 495 -50 100 Weight (lbs) 109.769 kg 109.769 kg Intake: Intake, IV Amount 200 100 Tigecycline 50 mg In 200 100 Sodium Chloride 0.9% 100 ml @ 100 mls/hr IV Q12HR [facility] Rx#:[id number] Oral 600 400 Output: Drainage 100 650 Sacrum 50 colostomy 100 600 Urine 5 0 Other: Weight Source Bedscale Bedscale Active Medications: Current Medications Acetaminophen (Tylenol) 650 mg PO Q6H PRN PRN Reason: Pain or Fever >101 Stop: 09/11/18 15:14 Albuterol/Ipratropium (Duoneb Neb) 3 ml HHN Q4HRT PRN PRN Reason: Shortness of Breath or Wheeze Stop: 09/11/18 15:14 Albuterol/Ipratropium (Duoneb Neb) 3 ml HHN Q6HRT [facility] Stop: 09/21/18 18:59 Last Admin: 07/26/18 13:53 Dose: 3 ml Ascorbic Acid (Vitamin C) 500 mg PO DAILY [facility] Stop: 09/12/18 08:59 Last Admin: 07/26/18 08:55 Dose: 500 mg Atorvastatin Calcium (Lipitor) 20 mg PO HS [facility] Stop: 09/11/18 20:59 Last Admin: 07/25/18 20:57 Dose: 20 mg [place] Oil/[place] Balsam/Trypsin (Venelex) 1 appl TP DAILY [facility] Stop: 09/13/18 08:59 Last Admin: 07/26/18 08:58 Dose: 1 appl Dextrose (Glutose 40%) 18.75 gm PO PRN PRN PRN Reason: Blood Glucose less than 70 Stop: 09/11/18 04:10 Docusate Sodium (Colace) 100 mg PO BID [facility] Stop: 09/11/18 16:59 Last Admin: 07/26/18 08:54 Dose: 100 mg Famotidine (Pepcid) 20 mg PO DAILY [facility] Stop: 09/12/18 08:59 Last Admin: 07/26/18 08:55 Dose: 20 mg Folic Acid (Folate) 1 mg PO DAILY [facility] Stop: 09/12/18 08:59 Last Admin: 07/26/18 08:55 Dose: 1 mg Glucagon (Glucagen) 1 mg IM PRN PRN PRN Reason: Blood Glucose less than 70 Stop: 09/11/18 04:10 Heparin Sodium (Porcine) (Heparin) 5,000 units SUBQ Q12HR [facility] Stop: 09/17/18 20:59 Last Admin: 07/26/18 08:55 Dose: 5,000 units Hydromorphone HCl (Dilaudid) 1 mg IVP Q4HR PRN PRN Reason: Pain (Severe) Stop: 09/20/18 20:12 Last Admin: 07/26/18 04:44 Dose: 1 mg Tigecycline 50 mg/ Sodium (Chloride) 100 mls @ 100 mls/hr IV Q12HR [facility] Stop: 09/17/18 19:44 Last Infusion: 07/26/18 10:00 Dose: Infused Norepinephrine Bitartrate 4 mg (/ Dextrose) 254 mls @ 38.1 mls/hr IV TITR PRN; Protocol PRN Reason: BP MAINTENANCE (PER PROTOCOL) Stop: 09/21/18 14:18 Last Titration: 07/24/18 04:10 Dose: 0 mcg/min, 0 mls/hr Insulin Aspart (Novolog Insulin Sliding Scale) 0 units SUBQ Q6HR [facility]; Protocol Stop: 09/11/18 05:59 Last Admin: 07/26/18 12:49 Dose: 4 units Lactobacillus Rhamnosus (Culturelle 15b) 1 each PO DAILY [facility] Stop: 09/13/18 13:59 Last Admin: 07/26/18 08:55 Dose: 1 each Levothyroxine Sodium (Synthroid) 0.025 mg PO QDAC [facility] Stop: 09/12/18 07:29 Last Admin: 07/26/18 07:47 Dose: 0.025 mg Miscellaneous (Probiotic Screen) 1 ea MC PRN PRN PRN Reason: PROTOCOL Stop: 09/13/18 11:44 Miscellaneous (Amikacin Iv Per Pharmacy) 1 ea MC PRN PRN PRN Reason: PROTOCOL Stop: 09/13/18 18:08 Oxcarbazepine (Trileptal) 600 mg PO BID [facility] Stop: 09/11/18 16:59 Last Admin: 07/26/18 08:55 Dose: 600 mg Risperidone (Risperdal) 2 mg PO HS [facility] Stop: 09/11/18 20:59 Last Admin: 07/25/18 21:00 Dose: Not Given Senna (Senna) 17.2 mg PO BID [facility] Stop: 09/11/18 16:59 Last Admin: 07/26/18 08:54 Dose: 17.2 mg Sevelamer Carbonate (Renvela) 800 mg PO TIDWM [facility] Stop: 09/11/18 16:59 Last Admin: 07/26/18 12:49 Dose: 800 mg Vitamin B Complex/Vit C/Folic Acid (Vitamin B Complex W/Vitamin C) 1 tab PO DAILY [facility] Stop: 09/12/18 08:59 Last Admin: 07/26/18 08:55 Dose: 1 tab Zinc Sulfate (Zinc Sulfate) 220 mg PO DAILY [facility] Stop: 09/12/18 08:59 Last Admin: 07/26/18 08:55 Dose: 220 mg General: Alert, Mild distress HEENT: Atraumatic, EOMI Neck: Supple, +2 carotid pulse wo bruit Cardiovascular: Regular rate, Normal S1, Normal S2 Lungs: Other (scattered rhonchi) Abdomen: Bowel sounds, Soft Extremities: Edema ((+) 2-3 edema), Other ((+) 2 bipedal edema) Neurological: Sensation intact Skin: no Rash Psych/Mental Status: Mood NL - Procedures Procedures: Procedures Procedure Code Date BYPASS DESCENDING COLON TO CUTANEOUS, OPEN APPROACH [id number] 07/12/18 EXCISION OF L LOW LEG SUBCU/FASCIA, OPEN APPROACH [id number] 07/12/18 EXCISION OF SACRUM, OPEN APPROACH [id number] 07/12/18 EXCISION OF SIGMOID COLON, OPEN APPROACH [id number] 07/12/18 RESPIRATORY VENTILATION, LESS THAN 24 CONSECUTIVE HOURS [id number] 07/12/18 Assessment/Plan - Problem List Patient Problems: All Active Problems Anasarca (Acute) R60.1 Anemia (Acute) D64.9 CAD (coronary artery disease) (Acute) I25.10 CHF (congestive heart failure) (Acute) I50.9 CKD (chronic kidney disease) (Acute) N18.9 HTN (hypertension) (Acute) I10 UTI (urinary tract infection) (Acute) sacral stage 4 wound (Acute) - Assessment Assessment: ESRD on HD Hypothyroid Parkinson Ds. Fnc Quad Hep B,C GERD Left Calf ulcer Sacral Decub ulcer stage 4, w/ wound vacuum Cholelithiasis B/L HAP w/ effusions Peripheral edema Left SFV DVT S/P Diverting Colostomy - Plan Plan: Lab - Result Diagrams 07/14/18 05:00 07/14/18 05:00 Current Medications Acetaminophen (Tylenol) 650 mg PO Q6H PRN PRN Reason: Pain or Fever >101 Stop: 09/11/18 15:14 Acetaminophen/Hydrocodone Bitart ([place] 5mg/325mg) 1 tab PO Q6H PRN PRN Reason: Pain (Severe) Stop: 09/11/18 15:14 Albuterol/Ipratropium (Duoneb Neb) 3 ml HHN Q4HRT PRN PRN Reason: Shortness of Breath or Wheeze Stop: 09/11/18 15:14 Ascorbic Acid (Vitamin C) 500 mg PO DAILY [facility] Stop: 09/12/18 08:59 Last Admin: 07/14/18 08:27 Dose: 500 mg Atorvastatin Calcium (Lipitor) 20 mg PO HS [facility] Stop: 09/11/18 20:59 Last Admin: 07/13/18 21:05 Dose: 20 mg Dextrose (D50w) 50 ml IVP PRN PRN PRN Reason: Blood Glucose less than 70 Stop: 09/11/18 04:10 Dextrose (Glutose 40%) 18.75 gm PO PRN PRN PRN Reason: Blood Glucose less than 70 Stop: 09/11/18 04:10 Docusate Sodium (Colace) 100 mg PO BID [facility] Stop: 09/11/18 16:59 Last Admin: 07/14/18 08:27 Dose: 100 mg Famotidine (Pepcid) 20 mg PO DAILY [facility] Stop: 09/12/18 08:59 Last Admin: 07/14/18 08:27 Dose: 20 mg Folic Acid (Folate) 1 mg PO DAILY [facility] Stop: 09/12/18 08:59 Last Admin: 07/14/18 08:27 Dose: 1 mg Glucagon (Glucagen) 1 mg IM PRN PRN PRN Reason: Blood Glucose less than 70 Stop: 09/11/18 04:10 Piperacillin Sod/Tazobactam (Sod 2.25 gm/ Sodium Chloride) 50 mls @ 100 mls/hr IV Q6H [facility] Stop: 09/11/18 05:59 Last Admin: 07/14/18 06:05 Dose: Not Given Dextrose/Sodium Chloride (D5-0.45ns) 1,000 mls @ 50 mls/hr IV .Q20H [facility] Stop: 09/11/18 02:29 Last Admin: 07/13/18 04:03 Dose: 50 mls/hr Insulin Aspart (Novolog Insulin Sliding Scale) 0 units SUBQ Q6HR [facility]; Protocol Stop: 09/11/18 05:59 Last Admin: 07/14/18 06:05 Dose: Not Given Levothyroxine Sodium (Synthroid) 0.025 mg PO QDAC [facility] Stop: 09/12/18 07:29 Last Admin: 07/14/18 06:35 Dose: 0.025 mg Miscellaneous (Vancomycin Iv Per Pharmacy) 1 [facility] PRN PRN PRN Reason: PROTOCOL Stop: 09/10/18 23:40 Oxcarbazepine (Trileptal) 600 mg PO BID [facility] Stop: 09/11/18 16:59 Last Admin: 07/14/18 08:27 Dose: 600 mg Risperidone (Risperdal) 2 mg PO HS [facility] Stop: 09/11/18 20:59 Last Admin: 07/13/18 21:05 Dose: 2 mg Senna (Senna) 17.2 mg PO BID [facility] Stop: 09/11/18 16:59 Last Admin: 07/14/18 08:27 Dose: 17.2 mg Sevelamer Carbonate (Renvela) 800 mg PO TIDWM [facility] Stop: 09/11/18 16:59 Last Admin: 07/14/18 08:27 Dose: 800 mg Temazepam (Restoril) 15 mg PO HS PRN; Protocol PRN Reason: Insomnia Stop: 09/11/18 15:14 Vitamin B Complex/Vit C/Folic Acid (Vitamin B Complex W/Vitamin C) 1 tab PO DAILY [facility] Stop: 09/12/18 08:59 Last Admin: 07/14/18 08:27 Dose: 1 tab Zinc Sulfate (Zinc Sulfate) 220 mg PO DAILY [facility] Stop: 09/12/18 08:59 Last Admin: 07/14/18 08:27 Dose: 220 mg Lab - Result Diagrams 07/24/18 05:50 07/23/18 04:45 continue wound care Pt. had diverting colostomy CXR still w/ persistent B/L effusion L>R schedule for HD in am due to persistent effusions & peripheral edema started on Puree diet Nutritional Asmnt/Malnutr-PDOC - Dietary Evaluation Malnutrition Findings (Please click <Entered> for more info): Nutritional Asmnt/Malnutrition Start: 07/13/18 13: 54 Text: Status: Complete Freq: Protocol: Document 07/13/18 13:56 MMERIN (Rec: 07/13/18 14:10 [id number]- [id number]) Nutritional Asmnt/Malnutrition Patient General Information Nutritional Screening Consult Diagnosis ESRD, anasarca Pertinent Medical Hx/Surgical Hx Seizure, hep C, diabetes, CAD, HTN, CVA, quadreplegia, Parkinsons, ESRD Subjective Information Consult received for "Diabetic ". Per nursing notes, patient receives hemodialysis MWF and patient is non-verbal. Patient with 2+ pitting edema. Current Diet Order/ Nutrition Support Renal diet Patient / S.O Not Indicated Pertinent Medications D50W, D5-0.45NS @50 ml/hr, Glucagon, Novolog Pertinent Labs (07/13) Na 134, BUN 48, Cr 2.9, glucose 41-137, Ca 8.2, BNP 515, albumin 2 Nutritional Hx/Data Height 1.73 m Height (Calculated Centimeters) 172.7 Current Weight (lbs) 113.852 kg Weight (Calculated Kilograms) 113.9 Weight (Calculated Grams) 890745.7 [place] Body Weight 140 % [place] Body Weight 179 Body Mass Index (BMI) 38.1 Recent Weight Change No Weight Status Morbidly Obese GI Symptoms GI Symptoms None Last BM 07/13 x 1 Difficult in: Chewing Food Allergies No Cultural/Ethnic/Mandaeism Belief none indicated Usual diet at home unknown Skin Integrity/Comment: Arian 10, ulceration on sacrum, left lower leg, abrasion on L heel, scar on right leg. Current %PO Good (75-100%) Estimated Nutritional Goals BEE in Kcals: Adj wt of IBW Calories/Kcals/Kg 27-32 kcal/kg (using 76.2kg ADj wt) Kcals Calculated ~7361-2775 kcal/day Protein g/k.2-1.5 gm/kg using Adj wt Protein Calculated ~90-115 gm/day Fluid: ml Per MD due to HD Nutritional Problem 2. Problem Problem Altered nutrition related lab values related to Etiology episodes of hypoglycemia, electrolyte imbalance aeb Signs/Symptoms: Na 134, glucose 41-137, Ca 8.2 1. Problem Problem Increased nutrient needs related to Etiology hypermetabolic state, impaired skin integrity aeb Signs/Symptoms: Pt on Hemodialysis and with multiple ulcerations Intervention/Recommendation Comments 1. Continue Renal diet as tolerated by patient. No need for DM restriction at this time due to hypoglycemia. 2. Consider fluid restriction due to HD, hyponatremia and edema. 3. Consider adding Prosource 1 packet with each meal for an additional 45gm protein. Expected Outcomes/Goals Expected Outcomes/Goals Oral intake >75% of meals, weight stable or trend toward ideal body weight, nutrition related labs WNL
--- NOTE | 2018-07-26 19:24 | Infectious Disease Prog Note ---
Infectious Disease Subjective - Review of Systems Service Date: 07/26/18 Subjective: Debridement of sacral wound and diverting colostomy were performed. Doing well. Infectious Disease Objective - Results Result Diagrams: 07/24/18 05:50 07/23/18 04:45 Recent Labs: Laboratory Last Values WBC 7.4 Th/cmm (4.8-10.8) 07/24/18 05:50 RBC 2.99 Mil/cmm (3.80-5.10) L 07/24/18 05:50 Hgb 8.7 gm/dL (12-16) L 07/24/18 05:50 Hct 26.4 % (41.0-60) L 07/24/18 05:50 MCV 88.5 fl (81-100) 07/24/18 05:50 MCH 29.1 pg (27.0-31.0) 07/24/18 05:50 MCHC Differential 32.9 pg (28.0-36.0) 07/24/18 05:50 RDW 16.8 % (11.5-20.0) 07/24/18 05:50 Plt Count 130 Th/cmm (150-400) L 07/24/18 05:50 MPV 7.2 fl 07/24/18 05:50 Add Manual Diff YES 07/18/18 09:02 Neutrophils % 44.6 % (40.0-80.0) 07/24/18 05:50 Band Neutrophils % 1 % (0-10) 07/18/18 09:02 Lymphocytes % 41.9 % (20.0-50.0) 07/24/18 05:50 Monocytes % 13.3 % (2.0-10.0) H 07/24/18 05:50 Eosinophils % 0.0 % (0.0-5.0) 07/24/18 05:50 Basophils % 0.2 % (0.0-2.0) 07/24/18 05:50 Neutrophils (Manual) 52 % (40-80) 07/18/18 09:02 Lymphocytes 36 % (20-50) 07/18/18 09:02 Monocytes 11 % (2-10) H 07/18/18 09:02 Eosinophils 0 % (0-5) 07/18/18 09:02 Basophils 0 % (0-3) 07/18/18 09:02 Platelet Estimate DECREASED PLATELETS (NORMAL) 07/18/18 09:02 PT 32.4 SECONDS (9.5-11.5) H 07/25/18 05:20 INR 3.30 (0.5-1.4) H 07/25/18 05:20 PTT (Actin FS) 43.0 SECONDS (26.0-38.0) H 07/20/18 08:08 Specimen Source Arterial 07/23/18 17:00 Sample Site LB 07/23/18 17:00 pH 7.44 (7.35-7.45) 07/23/18 17:00 pCO2 44.0 mmHg (35.0-45.0) 07/23/18 17:00 pO2 86.0 mmHg (80.0-100.0) 07/23/18 17:00 HCO3 28.9 mEq/L (20.0-26.0) H 07/23/18 17:00 Base Excess 5.1 mEq/L (-3.0-3.0) H 07/23/18 17:00 O2 Saturation 97.0 % (92.0-100.0) 07/23/18 17:00 [place] Test NA 07/23/18 17:00 Vent Rate NA 07/23/18 17:00 Inspired O2 40 07/23/18 17:00 Tidal Volume NA 07/23/18 17:00 PEEP NA 07/23/18 17:00 Pressure (ins/psv/peep) NA 07/23/18 17:00 Critical Value E.QUINTEROS 07/23/18 17:00 Sodium 137 mEq/L (136-145) 07/23/18 04:45 Potassium 3.8 mEq/L (3.5-5.1) 07/23/18 04:45 Chloride 107 mEq/L (98-107) 07/23/18 04:45 Carbon Dioxide 20.1 mEq/L (21.0-31.0) L 07/23/18 04:45 Anion Gap 13.7 (7.0-16.0) 07/23/18 04:45 BUN 11 mg/dL (7-25) 07/23/18 04:45 Creatinine 2.3 mg/dL (0.6-1.2) H 07/23/18 04:45 Est GFR ( Amer) 29.0 ml/min (>90) 07/23/18 04:45 Est GFR (Non-Af Amer) 24.0 ml/min 07/23/18 04:45 BUN/Creatinine Ratio 4.8 07/23/18 04:45 Glucose 219 mg/dL (70-105) H 07/23/18 04:45 POC Glucose 236 MG/DL (70 - 105) H 07/26/18 16:47 Whole Bld Lactic Acid 1.29 mmol/L (0.60-1.99) 07/12/18 20:50 Calcium 8.2 mg/dL (8.6-10.3) L 07/23/18 04:45 Magnesium 1.6 mg/dL (1.9-2.7) L 07/21/18 05:00 Total Bilirubin 0.3 mg/dL (0.3-1.0) 07/18/18 05:20 AST 18 U/L (13-39) 07/18/18 05:20 ALT 7 U/L (7-52) 07/18/18 05:20 Alkaline Phosphatase 80 U/L (34-104) 07/18/18 05:20 Creatine Kinase 20 U/L (30-223) L 07/12/18 20:50 Troponin I 0.49 ng/mL (0.01-0.05) H* 07/13/18 15:20 B-Natriuretic Peptide 515.0 pg/mL (5.0-100.0) H 07/13/18 04:00 Total Protein 4.0 gm/dL (6.0-8.3) L 07/18/18 05:20 Albumin < 1.5 gm/dL (3.7-5.3) L 07/18/18 05:20 Globulin 2.5 gm/dL 07/18/18 05:20 Albumin/Globulin Ratio 0.6 (1.0-1.8) L 07/18/18 05:20 Triglycerides 53 mg/dL (<150) 07/13/18 04:00 Cholesterol 41 mg/dL (<200) 07/13/18 04:00 LDL Cholesterol Direct 11 mg/dL (75-193) L 07/13/18 04:00 HDL Cholesterol 24 mg/dL (23-92) 07/13/18 04:00 TSH 1.21 uIU/ml (0.34-5.60) 07/13/18 04:00 Urine Source [place] 07/12/18 20:50 Urine Color YELLOW 07/12/18 20:50 Urine Clarity CLOUDY (CLEAR) H 07/12/18 20:50 Urine pH 8.5 (4.6 - 8.0) 07/12/18 20:50 Ur Specific [place] 1.015 (1.005-1.030) 07/12/18 20:50 Urine Protein 100 mg/dL (NEGATIVE) H 07/12/18 20:50 Urine Glucose (UA) NEGATIVE mg/dL (NEGATIVE) 07/12/18 20:50 Urine Ketones NEGATIVE mg/dL (NEGATIVE) 07/12/18 20:50 Urine Blood TRACE (NEGATIVE) 07/12/18 20:50 Urine Nitrate NEGATIVE (NEGATIVE) 07/12/18 20:50 Urine Bilirubin NEGATIVE (NEGATIVE) 07/12/18 20:50 Urine Urobilinogen 0.2 E.U./dL (0.2 - 1.0) 07/12/18 20:50 Ur Leukocyte Esterase LARGE (NEGATIVE) H 07/12/18 20:50 Urine RBC 2-5 /hpf (0-5) 07/12/18 20:50 Urine WBC >100 /hpf (0-5) H 07/12/18 20:50 Ur Epithelial Cells MODERATE /lpf (FEW) 07/12/18 20:50 Urine Bacteria MANY /hpf (NONE SEEN) H 07/12/18 20:50 Amikacin Peak 17.8 ug/mL (20.0-30.0) L 07/23/18 20:25 Amikacin Trough 6.9 ug/mL (1.0-8.0) 07/23/18 18:00 Random Amikacin 14.8 ug/ml (1.0-30.0) 07/25/18 17:00 Random Vancomycin 25.5 ug/mL (5.0-40.0) 07/24/18 05:50 - Physical Exam Vitals and I&O: Vital Signs Temp 98 F 07/26/18 16:00 Pulse 109 07/26/18 19:12 Resp 18 07/26/18 19:12 BP 126/63 07/26/18 16:00 Pulse Ox 100 07/26/18 19:12 Intake & Output 07/26/18 07/26/18 07/27/18 06:59 18:59 06:59 Intake Total 600 650 Output Total 650 650 Balance -50 0 Weight (lbs) 109.769 kg 109.769 kg Intake: Intake, IV Amount 200 100 Tigecycline 50 mg In 200 100 Sodium Chloride 0.9% 100 ml @ 100 mls/hr IV Q12HR COUNTS INCLUDE 234 BEDS AT THE [facility] Rx#:[id number] Oral 400 550 Output: Drainage 650 350 Sacrum 50 50 colostomy 600 300 Urine 0 Urine/Stool Mix 300 Other: Weight Source Bedscale Bedscale Active Medications: Current Medications Acetaminophen (Tylenol) 650 mg PO Q6H PRN PRN Reason: Pain or Fever >101 Stop: 09/11/18 15:14 Albuterol/Ipratropium (Duoneb Neb) 3 ml HHN Q4HRT PRN PRN Reason: Shortness of Breath or Wheeze Stop: 09/11/18 15:14 Albuterol/Ipratropium (Duoneb Neb) 3 ml HHN Q6HRT VIKTORIA Stop: 09/21/18 18:59 Last Admin: 07/26/18 19:11 Dose: 3 ml Ascorbic Acid (Vitamin C) 500 mg PO DAILY VIKTORIA Stop: 09/12/18 08:59 Last Admin: 07/26/18 08:55 Dose: 500 mg Atorvastatin Calcium (Lipitor) 20 mg PO HS COUNTS INCLUDE 234 BEDS AT THE [facility] Stop: 09/11/18 20:59 Last Admin: 07/25/18 20:57 Dose: 20 mg [place] Oil/French Balsam/Trypsin (Venelex) 1 appl TP DAILY COUNTS INCLUDE 234 BEDS AT THE [facility] Stop: 09/13/18 08:59 Last Admin: 07/26/18 08:58 Dose: 1 appl Dextrose (Glutose 40%) 18.75 gm PO PRN PRN PRN Reason: Blood Glucose less than 70 Stop: 09/11/18 04:10 Docusate Sodium (Colace) 100 mg PO BID COUNTS INCLUDE 234 BEDS AT THE [facility] Stop: 09/11/18 16:59 Last Admin: 07/26/18 17:09 Dose: 100 mg Famotidine (Pepcid) 20 mg PO DAILY VIKTORIA Stop: 09/12/18 08:59 Last Admin: 07/26/18 08:55 Dose: 20 mg Folic Acid (Folate) 1 mg PO DAILY COUNTS INCLUDE 234 BEDS AT THE [facility] Stop: 09/12/18 08:59 Last Admin: 07/26/18 08:55 Dose: 1 mg Glucagon (Glucagen) 1 mg IM PRN PRN PRN Reason: Blood Glucose less than 70 Stop: 09/11/18 04:10 Heparin Sodium (Porcine) (Heparin) 5,000 units SUBQ Q12HR VIKTORIA Stop: 09/17/18 20:59 Last Admin: 07/26/18 08:55 Dose: 5,000 units Hydromorphone HCl (Dilaudid) 1 mg IVP Q4HR PRN PRN Reason: Pain (Severe) Stop: 09/20/18 20:12 Last Admin: 07/26/18 04:44 Dose: 1 mg Tigecycline 50 mg/ Sodium (Chloride) 100 mls @ 100 mls/hr IV Q12HR VIKTORIA Stop: 09/17/18 19:44 Last Infusion: 07/26/18 10:00 Dose: Infused Norepinephrine Bitartrate 4 mg (/ Dextrose) 254 mls @ 38.1 mls/hr IV TITR PRN; Protocol PRN Reason: BP MAINTENANCE (PER PROTOCOL) Stop: 09/21/18 14:18 Last Titration: 07/24/18 04:10 Dose: 0 mcg/min, 0 mls/hr Insulin Aspart (Novolog Insulin Sliding Scale) 0 units SUBQ Q6HR VIKTORIA; Protocol Stop: 09/11/18 05:59 Last Admin: 07/26/18 17:09 Dose: 4 units Lactobacillus Rhamnosus (Culturelle 15b) 1 each PO DAILY VIKTORIA Stop: 09/13/18 13:59 Last Admin: 07/26/18 08:55 Dose: 1 each Levothyroxine Sodium (Synthroid) 0.025 mg PO QDAC VIKTORIA Stop: 09/12/18 07:29 Last Admin: 07/26/18 07:47 Dose: 0.025 mg Miscellaneous (Probiotic Screen) 1 ea MC PRN PRN PRN Reason: PROTOCOL Stop: 09/13/18 11:44 Miscellaneous (Amikacin Iv Per Pharmacy) 1 ea MC PRN PRN PRN Reason: PROTOCOL Stop: 09/13/18 18:08 Oxcarbazepine (Trileptal) 600 mg PO BID VIKTORIA Stop: 09/11/18 16:59 Last Admin: 07/26/18 17:08 Dose: 600 mg Risperidone (Risperdal) 2 mg PO HS VIKTORIA Stop: 09/11/18 20:59 Last Admin: 07/25/18 21:00 Dose: Not Given Senna (Senna) 17.2 mg PO BID VIKTORIA Stop: 09/11/18 16:59 Last Admin: 07/26/18 17:08 Dose: 17.2 mg Sevelamer Carbonate (Renvela) 800 mg PO TIDWM VIKTORIA Stop: 09/11/18 16:59 Last Admin: 07/26/18 17:08 Dose: 800 mg Vitamin B Complex/Vit C/Folic Acid (Vitamin B Complex W/Vitamin C) 1 tab PO DAILY VIKTORIA Stop: 09/12/18 08:59 Last Admin: 07/26/18 08:55 Dose: 1 tab Zinc Sulfate (Zinc Sulfate) 220 mg PO DAILY VIKTORIA Stop: 09/12/18 08:59 Last Admin: 07/26/18 08:55 Dose: 220 mg General: no acute distress, well developed, well nourished HEENT: atraumatic, normocephalic, PERRLA Neck: supple, no thyromegaly Cardiovascular: S1S2, regular Lungs: clear to auscultation bilaterally, clear to percussion, no rhonchi Abdomen: soft, other (colostomy), no tender, no distended Extremities: no cyanosis, no clubbing, no edema Neurological: awake, alert, oriented Skin: other (sacral wound wound vac) - Procedures Procedures: Procedures Procedure Code Date BYPASS DESCENDING COLON TO CUTANEOUS, OPEN APPROACH [id number] 07/12/18 EXCISION OF L LOW LEG SUBCU/FASCIA, OPEN APPROACH [id number] 07/12/18 EXCISION OF SACRUM, OPEN APPROACH [id number] 07/12/18 EXCISION OF SIGMOID COLON, OPEN APPROACH [id number] 07/12/18 RESPIRATORY VENTILATION, LESS THAN 24 CONSECUTIVE HOURS [id number] 07/12/18 Infectious Disease Assmt/Plan - Problem List Patient Problems: All Active Problems Anasarca (Acute) R60.1 Anemia (Acute) D64.9 CAD (coronary artery disease) (Acute) I25.10 CHF (congestive heart failure) (Acute) I50.9 CKD (chronic kidney disease) (Acute) N18.9 HTN (hypertension) (Acute) I10 UTI (urinary tract infection) (Acute) sacral stage 4 wound (Acute) - Assessment Assessment: 1. UTI 2. Staph CN in blood contaminant. 3. Hypoglycemia. 4. Diabetes mellitus type 1 with episodes of hypoglycemia. 5. Hypertension. 6. Anemia of chronic disease. 7. Coronary artery disease, 8. CHF.. 9. Anasarca 10. 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 11. sacral stage 4 wound. No evidence of osteimyelitis, 12. S/p Diverting colostomy. - Plan Plan: Continue amikacin and tygacil for 3 days. wound care. Nutritional Asmnt/Malnutr-PDOC - Dietary Evaluation Malnutrition Findings (Please click <Entered> for more info): Nutritional Asmnt/Malnutrition Start: 07/13/18 13: 54 Text: Status: Complete Freq: Protocol: Document 07/13/18 13:56 MMULHERN (Rec: 07/13/18 14:10 [email or web address] NASH- [id number]) Nutritional Asmnt/Malnutrition Patient General Information Nutritional Screening Consult Diagnosis ESRD, anasarca Pertinent Medical Hx/Surgical Hx Seizure, hep C, diabetes, CAD, HTN, CVA, quadreplegia, Parkinsons, ESRD Subjective Information Consult received for "Diabetic ". Per nursing notes, patient receives hemodialysis MWF and patient is non-verbal. Patient with 2+ pitting edema. Current Diet Order/ Nutrition Support Renal diet Patient / S.O Not Indicated Pertinent Medications D50W, D5-0.45NS @50 ml/hr, Glucagon, Novolog Pertinent Labs (07/13) Na 134, BUN 48, Cr 2.9, glucose 41-137, Ca 8.2, BNP 515, albumin 2 Nutritional Hx/Data Height 1.73 m Height (Calculated Centimeters) 172.7 Current Weight (lbs) 113.852 kg Weight (Calculated Kilograms) 113.9 Weight (Calculated Grams) 650960.7 Midnight Body Weight 140 % Midnight Body Weight 179 Body Mass Index (BMI) 38.1 Recent Weight Change No Weight Status Morbidly Obese GI Symptoms GI Symptoms None Last BM 07/13 x 1 Difficult in: Chewing Food Allergies No Cultural/Ethnic/Synagogue Belief none indicated Usual diet at home unknown Skin Integrity/Comment: Arian 10, ulceration on sacrum, left lower leg, abrasion on L heel, scar on right leg. Current %PO Good (75-100%) Estimated Nutritional Goals BEE in Kcals: Adj wt of IBW Calories/Kcals/Kg 27-32 kcal/kg (using 76.2kg ADj wt) Kcals Calculated ~6153-1399 kcal/day Protein g/k.2-1.5 gm/kg using Adj wt Protein Calculated ~90-115 gm/day Fluid: ml Per MD due to HD Nutritional Problem 2. Problem Problem Altered nutrition related lab values related to Etiology episodes of hypoglycemia, electrolyte imbalance aeb Signs/Symptoms: Na 134, glucose 41-137, Ca 8.2 1. Problem Problem Increased nutrient needs related to Etiology hypermetabolic state, impaired skin integrity aeb Signs/Symptoms: Pt on Hemodialysis and with multiple ulcerations Intervention/Recommendation Comments 1. Continue Renal diet as tolerated by patient. No need for DM restriction at this time due to hypoglycemia. 2. Consider fluid restriction due to HD, hyponatremia and edema. 3. Consider adding Prosource 1 packet with each meal for an additional 45gm protein. Expected Outcomes/Goals Expected Outcomes/Goals Oral intake >75% of meals, weight stable or trend toward ideal body weight, nutrition related labs WNL
[2018-07-26] MEDS: Atorvastatin Calcium 10 MG TAB PO SCH (23:27)
[2018-07-27] MEDS: INSULIN ASPART SLIDING SCALE 100 UNITS/ML UNIT SUBQ SCH ×4 (00:35→18:10)
[2018-07-27] MEDS: Albuterol/Ipratropium Neb 3 ML AERS HHN SCH ×4 (01:19→19:27)
[2018-07-27 04:23] LABS: % BASOPHILS 0.3 % (0.0-2.0); % EOSINOPHILS 0.2 % (0.0-5.0); % LYMPHOCYTES 25.2 % (20.0-50.0); % MONOCYTES 13.5 % (2.0-10.0); % NEUTROPHILS 60.8 % (40.0-80.0); HEMATOCRIT 24.5 % (41.0-60); LYMPHOCYTE ABSOLUTE 1.7 Th/cmm (1.5-3.0); MEAN CELL VOLUME 86.8 fl (81-100); MEAN CORPUSCULAR HEMOGLOBIN 28.3 pg (27.0-31.0); MEAN CORPUSCULAR HGB CONC 32.7 pg (28.0-36.0); MEAN PLATELET VOLUME 7.2 fl; MONOCYTE ABSOLUTE 0.9 Th/cmm (0.3-1.0); NEUTROPHILE ABSOLUTE 4.2 Th/cmm (1.8-8.0); PLATELET COUNT 133 Th/cmm (150-400); RED BLOOD COUNT 2.82 Mil/cmm (3.80-5.10); RED CELL DISTRIBUTION WIDTH 16.3 % (11.5-20.0); WHITE BLOOD COUNT 6.8 Th/cmm (4.8-10.8)
[2018-07-27 05:06] LABS: CALCIUM SERUM 8.6 mg/dL (8.6-10.3); CARBON DIOXIDE 26.9 mEq/L (21.0-31.0); CREATININE - SERUM 2.9 mg/dL (0.6-1.2); GFR AFRICAN-AMERICAN 22.1 ml/min (>90); GFR NON AFRICAN-AMERICAN 18.3 ml/min; POTASSIUM SERUM 3.9 mEq/L (3.5-5.1)
[2018-07-27] MEDS: Levothyroxine 0.025 Mg Tab PO SCH (07:01)
--- NOTE | 2018-07-27 08:54 | General Progress Note ---
Subjective - Review of Systems Service Date: 07/27/18 Events since last encounter: labs ok incision healing well lots of stool in colostomy bag on wound vac for huge sacral ulcer Objective - Results Result Diagrams: 07/27/18 04:10 07/27/18 04:10 Recent Labs: Laboratory Last Values WBC 6.8 Th/cmm (4.8-10.8) 07/27/18 04:10 RBC 2.82 Mil/cmm (3.80-5.10) L 07/27/18 04:10 Hgb 8.0 gm/dL (12-16) L 07/27/18 04:10 Hct 24.5 % (41.0-60) L 07/27/18 04:10 MCV 86.8 fl (81-100) 07/27/18 04:10 MCH 28.3 pg (27.0-31.0) 07/27/18 04:10 MCHC Differential 32.7 pg (28.0-36.0) 07/27/18 04:10 RDW 16.3 % (11.5-20.0) 07/27/18 04:10 Plt Count 133 Th/cmm (150-400) L 07/27/18 04:10 MPV 7.2 fl 07/27/18 04:10 Add Manual Diff YES 07/18/18 09:02 Neutrophils % 60.8 % (40.0-80.0) 07/27/18 04:10 Band Neutrophils % 1 % (0-10) 07/18/18 09:02 Lymphocytes % 25.2 % (20.0-50.0) 07/27/18 04:10 Monocytes % 13.5 % (2.0-10.0) H 07/27/18 04:10 Eosinophils % 0.2 % (0.0-5.0) 07/27/18 04:10 Basophils % 0.3 % (0.0-2.0) 07/27/18 04:10 Neutrophils (Manual) 52 % (40-80) 07/18/18 09:02 Lymphocytes 36 % (20-50) 07/18/18 09:02 Monocytes 11 % (2-10) H 07/18/18 09:02 Eosinophils 0 % (0-5) 07/18/18 09:02 Basophils 0 % (0-3) 07/18/18 09:02 Platelet Estimate DECREASED PLATELETS (NORMAL) 07/18/18 09:02 PT 32.4 SECONDS (9.5-11.5) H 07/25/18 05:20 INR 3.30 (0.5-1.4) H 07/25/18 05:20 PTT (Actin FS) 43.0 SECONDS (26.0-38.0) H 07/20/18 08:08 Specimen Source Arterial 07/23/18 17:00 Sample Site LB 07/23/18 17:00 pH 7.44 (7.35-7.45) 07/23/18 17:00 pCO2 44.0 mmHg (35.0-45.0) 07/23/18 17:00 pO2 86.0 mmHg (80.0-100.0) 07/23/18 17:00 HCO3 28.9 mEq/L (20.0-26.0) H 07/23/18 17:00 Base Excess 5.1 mEq/L (-3.0-3.0) H 07/23/18 17:00 O2 Saturation 97.0 % (92.0-100.0) 07/23/18 17:00 [place] Test NA 07/23/18 17:00 Vent Rate NA 07/23/18 17:00 Inspired O2 40 07/23/18 17:00 Tidal Volume NA 07/23/18 17:00 PEEP NA 07/23/18 17:00 Pressure (ins/psv/peep) NA 07/23/18 17:00 Critical Value E.QUINTEROS 07/23/18 17:00 Sodium 137 mEq/L (136-145) 07/27/18 04:10 Potassium 3.9 mEq/L (3.5-5.1) 07/27/18 04:10 Chloride 106 mEq/L (98-107) 07/27/18 04:10 Carbon Dioxide 26.9 mEq/L (21.0-31.0) 07/27/18 04:10 Anion Gap 8.0 (7.0-16.0) 07/27/18 04:10 BUN 13 mg/dL (7-25) 07/27/18 04:10 Creatinine 2.9 mg/dL (0.6-1.2) H 07/27/18 04:10 Est GFR ( Amer) 22.1 ml/min (>90) 07/27/18 04:10 Est GFR (Non-Af Amer) 18.3 ml/min 07/27/18 04:10 BUN/Creatinine Ratio 4.5 07/27/18 04:10 Glucose 199 mg/dL (70-105) H 07/27/18 04:10 POC Glucose 196 MG/DL (70 - 105) H 07/27/18 06:59 Whole Bld Lactic Acid 1.29 mmol/L (0.60-1.99) 07/12/18 20:50 Calcium 8.6 mg/dL (8.6-10.3) 07/27/18 04:10 Magnesium 1.6 mg/dL (1.9-2.7) L 07/21/18 05:00 Total Bilirubin 0.3 mg/dL (0.3-1.0) 07/18/18 05:20 AST 18 U/L (13-39) 07/18/18 05:20 ALT 7 U/L (7-52) 07/18/18 05:20 Alkaline Phosphatase 80 U/L (34-104) 07/18/18 05:20 Creatine Kinase 20 U/L (30-223) L 07/12/18 20:50 Troponin I 0.49 ng/mL (0.01-0.05) H* 07/13/18 15:20 B-Natriuretic Peptide 515.0 pg/mL (5.0-100.0) H 07/13/18 04:00 Total Protein 4.0 gm/dL (6.0-8.3) L 07/18/18 05:20 Albumin < 1.5 gm/dL (3.7-5.3) L 07/18/18 05:20 Globulin 2.5 gm/dL 07/18/18 05:20 Albumin/Globulin Ratio 0.6 (1.0-1.8) L 07/18/18 05:20 Triglycerides 53 mg/dL (<150) 07/13/18 04:00 Cholesterol 41 mg/dL (<200) 07/13/18 04:00 LDL Cholesterol Direct 11 mg/dL (75-193) L 07/13/18 04:00 HDL Cholesterol 24 mg/dL (23-92) 07/13/18 04:00 TSH 1.21 uIU/ml (0.34-5.60) 07/13/18 04:00 Urine Source [place] 07/12/18 20:50 Urine Color YELLOW 07/12/18 20:50 Urine Clarity CLOUDY (CLEAR) H 07/12/18 20:50 Urine pH 8.5 (4.6 - 8.0) 07/12/18 20:50 Ur Specific [place] 1.015 (1.005-1.030) 07/12/18 20:50 Urine Protein 100 mg/dL (NEGATIVE) H 07/12/18 20:50 Urine Glucose (UA) NEGATIVE mg/dL (NEGATIVE) 07/12/18 20:50 Urine Ketones NEGATIVE mg/dL (NEGATIVE) 07/12/18 20:50 Urine Blood TRACE (NEGATIVE) 07/12/18 20:50 Urine Nitrate NEGATIVE (NEGATIVE) 07/12/18 20:50 Urine Bilirubin NEGATIVE (NEGATIVE) 07/12/18 20:50 Urine Urobilinogen 0.2 E.U./dL (0.2 - 1.0) 07/12/18 20:50 Ur Leukocyte Esterase LARGE (NEGATIVE) H 07/12/18 20:50 Urine RBC 2-5 /hpf (0-5) 07/12/18 20:50 Urine WBC >100 /hpf (0-5) H 07/12/18 20:50 Ur Epithelial Cells MODERATE /lpf (FEW) 07/12/18 20:50 Urine Bacteria MANY /hpf (NONE SEEN) H 07/12/18 20:50 Amikacin Peak 17.8 ug/mL (20.0-30.0) L 07/23/18 20:25 Amikacin Trough 6.9 ug/mL (1.0-8.0) 07/23/18 18:00 Random Amikacin 14.8 ug/ml (1.0-30.0) 07/25/18 17:00 Random Vancomycin 25.5 ug/mL (5.0-40.0) 07/24/18 05:50 - Physical Exam Vitals and I&O: Vital Signs Temp 97.5 F 07/27/18 08:00 Pulse 109 07/27/18 08:00 Resp 18 07/27/18 08:00 BP 107/75 07/27/18 08:00 Pulse Ox 98 07/27/18 08:00 Intake & Output 07/26/18 07/27/18 07/27/18 18:59 06:59 18:59 Intake Total 650 100 Output Total 650 300 Balance 0 -200 Weight (lbs) 109.769 kg 109.769 kg Intake: Intake, IV Amount 100 100 Tigecycline 50 mg In 100 100 Sodium Chloride 0.9% 100 ml @ 100 mls/hr IV Q12HR [facility] Rx#:[id number] Oral 550 Output: Drainage 350 Sacrum 50 colostomy 300 Stool 300 Urine/Stool Mix 300 Other: Weight Source Bedscale Bedscale Active Medications: Current Medications Acetaminophen (Tylenol) 650 mg PO Q6H PRN PRN Reason: Pain or Fever >101 Stop: 09/11/18 15:14 Albuterol/Ipratropium (Duoneb Neb) 3 ml HHN Q4HRT PRN PRN Reason: Shortness of Breath or Wheeze Stop: 09/11/18 15:14 Albuterol/Ipratropium (Duoneb Neb) 3 ml HHN Q6HRT [facility] Stop: 09/21/18 18:59 Last Admin: 07/27/18 07:11 Dose: 3 ml Ascorbic Acid (Vitamin C) 500 mg PO DAILY [facility] Stop: 09/12/18 08:59 Last Admin: 07/26/18 08:55 Dose: 500 mg Atorvastatin Calcium (Lipitor) 20 mg PO HS [facility] Stop: 09/11/18 20:59 Last Admin: 07/26/18 23:27 Dose: 20 mg [place] Oil/Filipino Balsam/Trypsin (Venelex) 1 appl TP DAILY [facility] Stop: 09/13/18 08:59 Last Admin: 07/26/18 08:58 Dose: 1 appl Dextrose (Glutose 40%) 18.75 gm PO PRN PRN PRN Reason: Blood Glucose less than 70 Stop: 09/11/18 04:10 Docusate Sodium (Colace) 100 mg PO BID [facility] Stop: 09/11/18 16:59 Last Admin: 07/26/18 17:09 Dose: 100 mg Famotidine (Pepcid) 20 mg PO DAILY [facility] Stop: 09/12/18 08:59 Last Admin: 07/26/18 08:55 Dose: 20 mg Folic Acid (Folate) 1 mg PO DAILY [facility] Stop: 09/12/18 08:59 Last Admin: 07/26/18 08:55 Dose: 1 mg Glucagon (Glucagen) 1 mg IM PRN PRN PRN Reason: Blood Glucose less than 70 Stop: 09/11/18 04:10 Heparin Sodium (Porcine) (Heparin) 5,000 units SUBQ Q12HR [facility] Stop: 09/17/18 20:59 Last Admin: 07/26/18 23:25 Dose: 5,000 units Hydromorphone HCl (Dilaudid) 1 mg IVP Q4HR PRN PRN Reason: Pain (Severe) Stop: 09/20/18 20:12 Last Admin: 07/26/18 04:44 Dose: 1 mg Tigecycline 50 mg/ Sodium (Chloride) 100 mls @ 100 mls/hr IV Q12HR [facility] Stop: 09/17/18 19:44 Last Infusion: 07/27/18 00:26 Dose: Infused Norepinephrine Bitartrate 4 mg (/ Dextrose) 254 mls @ 38.1 mls/hr IV TITR PRN; Protocol PRN Reason: BP MAINTENANCE (PER PROTOCOL) Stop: 09/21/18 14:18 Last Titration: 07/24/18 04:10 Dose: 0 mcg/min, 0 mls/hr Insulin Aspart (Novolog Insulin Sliding Scale) 0 units SUBQ Q6HR [facility]; Protocol Stop: 09/11/18 05:59 Last Admin: 07/27/18 07:02 Dose: 2 units Lactobacillus Rhamnosus (Culturelle 15b) 1 each PO DAILY [facility] Stop: 09/13/18 13:59 Last Admin: 07/26/18 08:55 Dose: 1 each Levothyroxine Sodium (Synthroid) 0.025 mg PO QDAC [facility] Stop: 09/12/18 07:29 Last Admin: 07/27/18 07:01 Dose: 0.025 mg Miscellaneous (Probiotic Screen) 1 ea MC PRN PRN PRN Reason: PROTOCOL Stop: 09/13/18 11:44 Miscellaneous (Amikacin Iv Per Pharmacy) 1 ea MC PRN PRN PRN Reason: PROTOCOL Stop: 09/13/18 18:08 Oxcarbazepine (Trileptal) 600 mg PO BID [facility] Stop: 09/11/18 16:59 Last Admin: 07/26/18 17:08 Dose: 600 mg Risperidone (Risperdal) 2 mg PO HS [facility] Stop: 09/11/18 20:59 Last Admin: 07/26/18 23:27 Dose: 2 mg Senna (Senna) 17.2 mg PO BID [facility] Stop: 09/11/18 16:59 Last Admin: 07/26/18 17:08 Dose: 17.2 mg Sevelamer Carbonate (Renvela) 800 mg PO TIDWM [facility] Stop: 09/11/18 16:59 Last Admin: 07/26/18 17:08 Dose: 800 mg Vitamin B Complex/Vit C/Folic Acid (Vitamin B Complex W/Vitamin C) 1 tab PO DAILY [facility] Stop: 09/12/18 08:59 Last Admin: 07/26/18 08:55 Dose: 1 tab Zinc Sulfate (Zinc Sulfate) 220 mg PO DAILY [facility] Stop: 09/12/18 08:59 Last Admin: 07/26/18 08:55 Dose: 220 mg General: Alert, Mild distress HEENT: Atraumatic, EOMI Neck: Supple, +2 carotid pulse wo bruit Cardiovascular: Regular rate, Normal S1, Normal S2 Lungs: Other (scattered rhonchi) Abdomen: Bowel sounds, Soft Extremities: Edema ((+) 2-3 edema), Other ((+) 2 bipedal edema) Neurological: Sensation intact Skin: no Rash Psych/Mental Status: Mood NL - Procedures Procedures: Procedures Procedure Code Date BYPASS DESCENDING COLON TO CUTANEOUS, OPEN APPROACH [id number] 07/12/18 EXCISION OF L LOW LEG SUBCU/FASCIA, OPEN APPROACH [id number] 07/12/18 EXCISION OF SACRUM, OPEN APPROACH [id number] 07/12/18 EXCISION OF SIGMOID COLON, OPEN APPROACH [id number] 07/12/18 RESPIRATORY VENTILATION, LESS THAN 24 CONSECUTIVE HOURS [id number] 07/12/18 Assessment/Plan - Problem List Patient Problems: All Active Problems Anasarca (Acute) R60.1 Anemia (Acute) D64.9 CAD (coronary artery disease) (Acute) I25.10 CHF (congestive heart failure) (Acute) I50.9 CKD (chronic kidney disease) (Acute) N18.9 HTN (hypertension) (Acute) I10 UTI (urinary tract infection) (Acute) sacral stage 4 wound (Acute) Nutritional Asmnt/Malnutr-PDOC - Dietary Evaluation Malnutrition Findings (Please click <Entered> for more info): Nutritional Asmnt/Malnutrition Start: 07/13/18 13: 54 Text: Status: Complete Freq: Protocol: Document 07/13/18 13:56 ALDAIR (Rec: 07/13/18 14:10 ALDAIR SAAD- [id number]) Nutritional Asmnt/Malnutrition Patient General Information Nutritional Screening Consult Diagnosis ESRD, anasarca Pertinent Medical Hx/Surgical Hx Seizure, hep C, diabetes, CAD, HTN, CVA, quadreplegia, Parkinsons, ESRD Subjective Information Consult received for "Diabetic ". Per nursing notes, patient receives hemodialysis MWF and patient is non-verbal. Patient with 2+ pitting edema. Current Diet Order/ Nutrition Support Renal diet Patient / S.O Not Indicated Pertinent Medications D50W, D5-0.45NS @50 ml/hr, Glucagon, Novolog Pertinent Labs (07/13) Na 134, BUN 48, Cr 2.9, glucose 41-137, Ca 8.2, BNP 515, albumin 2 Nutritional Hx/Data Height 1.73 m Height (Calculated Centimeters) 172.7 Current Weight (lbs) 113.852 kg Weight (Calculated Kilograms) 113.9 Weight (Calculated Grams) 514407.7 [place] Body Weight 140 % [place] Body Weight 179 Body Mass Index (BMI) 38.1 Recent Weight Change No Weight Status Morbidly Obese GI Symptoms GI Symptoms None Last BM 07/13 x 1 Difficult in: Chewing Food Allergies No Cultural/Ethnic/Oriental Orthodox Belief none indicated Usual diet at home unknown Skin Integrity/Comment: Arian 10, ulceration on sacrum, left lower leg, abrasion on L heel, scar on right leg. Current %PO Good (75-100%) Estimated Nutritional Goals BEE in Kcals: Adj wt of IBW Calories/Kcals/Kg 27-32 kcal/kg (using 76.2kg ADj wt) Kcals Calculated ~0699-1324 kcal/day Protein g/k.2-1.5 gm/kg using Adj wt Protein Calculated ~90-115 gm/day Fluid: ml Per MD due to HD Nutritional Problem 2. Problem Problem Altered nutrition related lab values related to Etiology episodes of hypoglycemia, electrolyte imbalance aeb Signs/Symptoms: Na 134, glucose 41-137, Ca 8.2 1. Problem Problem Increased nutrient needs related to Etiology hypermetabolic state, impaired skin integrity aeb Signs/Symptoms: Pt on Hemodialysis and with multiple ulcerations Intervention/Recommendation Comments 1. Continue Renal diet as tolerated by patient. No need for DM restriction at this time due to hypoglycemia. 2. Consider fluid restriction due to HD, hyponatremia and edema. 3. Consider adding Prosource 1 packet with each meal for an additional 45gm protein. Expected Outcomes/Goals Expected Outcomes/Goals Oral intake >75% of meals, weight stable or trend toward ideal body weight, nutrition related labs WNL
[2018-07-27] MEDS: Lactobacillus Rhamnosus GG 15 Billion CFU CAP.SPRINK PO SCH (09:33)
[2018-07-27] MEDS: Docusate Sodium 100 mg/10 mL UD PO SCH ×2 (09:33→16:30)
[2018-07-27] MEDS: Vitamin B Complex w/Vitamin C Tab PO SCH (09:33)
--- NOTE | 2018-07-27 13:24 | Infectious Disease Prog Note ---
Infectious Disease Subjective - Review of Systems Service Date: 07/27/18 Subjective: s/p Debridement of sacral wound and diverting colostomy Infectious Disease Objective - Results Result Diagrams: 07/29/18 05:00 07/29/18 05:00 Recent Labs: Laboratory Last Values WBC 6.8 Th/cmm (4.8-10.8) 07/27/18 04:10 RBC 2.82 Mil/cmm (3.80-5.10) L 07/27/18 04:10 Hgb 8.0 gm/dL (12-16) L 07/27/18 04:10 Hct 24.5 % (41.0-60) L 07/27/18 04:10 MCV 86.8 fl (81-100) 07/27/18 04:10 MCH 28.3 pg (27.0-31.0) 07/27/18 04:10 MCHC Differential 32.7 pg (28.0-36.0) 07/27/18 04:10 RDW 16.3 % (11.5-20.0) 07/27/18 04:10 Plt Count 133 Th/cmm (150-400) L 07/27/18 04:10 MPV 7.2 fl 07/27/18 04:10 Add Manual Diff YES 07/18/18 09:02 Neutrophils % 60.8 % (40.0-80.0) 07/27/18 04:10 Band Neutrophils % 1 % (0-10) 07/18/18 09:02 Lymphocytes % 25.2 % (20.0-50.0) 07/27/18 04:10 Monocytes % 13.5 % (2.0-10.0) H 07/27/18 04:10 Eosinophils % 0.2 % (0.0-5.0) 07/27/18 04:10 Basophils % 0.3 % (0.0-2.0) 07/27/18 04:10 Neutrophils (Manual) 52 % (40-80) 07/18/18 09:02 Lymphocytes 36 % (20-50) 07/18/18 09:02 Monocytes 11 % (2-10) H 07/18/18 09:02 Eosinophils 0 % (0-5) 07/18/18 09:02 Basophils 0 % (0-3) 07/18/18 09:02 Platelet Estimate DECREASED PLATELETS (NORMAL) 07/18/18 09:02 PT 32.4 SECONDS (9.5-11.5) H 07/25/18 05:20 INR 3.30 (0.5-1.4) H 07/25/18 05:20 PTT (Actin FS) 43.0 SECONDS (26.0-38.0) H 07/20/18 08:08 Specimen Source Arterial 07/23/18 17:00 Sample Site LB 07/23/18 17:00 pH 7.44 (7.35-7.45) 07/23/18 17:00 pCO2 44.0 mmHg (35.0-45.0) 07/23/18 17:00 pO2 86.0 mmHg (80.0-100.0) 07/23/18 17:00 HCO3 28.9 mEq/L (20.0-26.0) H 07/23/18 17:00 Base Excess 5.1 mEq/L (-3.0-3.0) H 07/23/18 17:00 O2 Saturation 97.0 % (92.0-100.0) 07/23/18 17:00 [place] Test NA 07/23/18 17:00 Vent Rate NA 07/23/18 17:00 Inspired O2 40 07/23/18 17:00 Tidal Volume NA 07/23/18 17:00 PEEP NA 07/23/18 17:00 Pressure (ins/psv/peep) NA 07/23/18 17:00 Critical Value E.QUINTEROS 07/23/18 17:00 Sodium 137 mEq/L (136-145) 07/27/18 04:10 Potassium 3.9 mEq/L (3.5-5.1) 07/27/18 04:10 Chloride 106 mEq/L (98-107) 07/27/18 04:10 Carbon Dioxide 26.9 mEq/L (21.0-31.0) 07/27/18 04:10 Anion Gap 8.0 (7.0-16.0) 07/27/18 04:10 BUN 13 mg/dL (7-25) 07/27/18 04:10 Creatinine 2.9 mg/dL (0.6-1.2) H 07/27/18 04:10 Est GFR ( Amer) 22.1 ml/min (>90) 07/27/18 04:10 Est GFR (Non-Af Amer) 18.3 ml/min 07/27/18 04:10 BUN/Creatinine Ratio 4.5 07/27/18 04:10 Glucose 199 mg/dL (70-105) H 07/27/18 04:10 POC Glucose 216 MG/DL (70 - 105) H 07/27/18 11:41 Whole Bld Lactic Acid 1.29 mmol/L (0.60-1.99) 07/12/18 20:50 Calcium 8.6 mg/dL (8.6-10.3) 07/27/18 04:10 Magnesium 1.6 mg/dL (1.9-2.7) L 07/21/18 05:00 Total Bilirubin 0.3 mg/dL (0.3-1.0) 07/18/18 05:20 AST 18 U/L (13-39) 07/18/18 05:20 ALT 7 U/L (7-52) 07/18/18 05:20 Alkaline Phosphatase 80 U/L (34-104) 07/18/18 05:20 Creatine Kinase 20 U/L (30-223) L 07/12/18 20:50 Troponin I 0.49 ng/mL (0.01-0.05) H* 07/13/18 15:20 B-Natriuretic Peptide 515.0 pg/mL (5.0-100.0) H 07/13/18 04:00 Total Protein 4.0 gm/dL (6.0-8.3) L 07/18/18 05:20 Albumin < 1.5 gm/dL (3.7-5.3) L 07/18/18 05:20 Globulin 2.5 gm/dL 07/18/18 05:20 Albumin/Globulin Ratio 0.6 (1.0-1.8) L 07/18/18 05:20 Triglycerides 53 mg/dL (<150) 07/13/18 04:00 Cholesterol 41 mg/dL (<200) 07/13/18 04:00 LDL Cholesterol Direct 11 mg/dL (75-193) L 07/13/18 04:00 HDL Cholesterol 24 mg/dL (23-92) 07/13/18 04:00 TSH 1.21 uIU/ml (0.34-5.60) 07/13/18 04:00 Urine Source [place] 07/12/18 20:50 Urine Color YELLOW 07/12/18 20:50 Urine Clarity CLOUDY (CLEAR) H 07/12/18 20:50 Urine pH 8.5 (4.6 - 8.0) 07/12/18 20:50 Ur Specific [place] 1.015 (1.005-1.030) 07/12/18 20:50 Urine Protein 100 mg/dL (NEGATIVE) H 07/12/18 20:50 Urine Glucose (UA) NEGATIVE mg/dL (NEGATIVE) 07/12/18 20:50 Urine Ketones NEGATIVE mg/dL (NEGATIVE) 07/12/18 20:50 Urine Blood TRACE (NEGATIVE) 07/12/18 20:50 Urine Nitrate NEGATIVE (NEGATIVE) 07/12/18 20:50 Urine Bilirubin NEGATIVE (NEGATIVE) 07/12/18 20:50 Urine Urobilinogen 0.2 E.U./dL (0.2 - 1.0) 07/12/18 20:50 Ur Leukocyte Esterase LARGE (NEGATIVE) H 07/12/18 20:50 Urine RBC 2-5 /hpf (0-5) 07/12/18 20:50 Urine WBC >100 /hpf (0-5) H 07/12/18 20:50 Ur Epithelial Cells MODERATE /lpf (FEW) 07/12/18 20:50 Urine Bacteria MANY /hpf (NONE SEEN) H 07/12/18 20:50 Amikacin Peak 35.4 ug/mL (20.0-30.0) H 07/25/18 23:55 Amikacin Trough 6.9 ug/mL (1.0-8.0) 07/23/18 18:00 Random Amikacin 14.8 ug/ml (1.0-30.0) 07/25/18 17:00 Random Vancomycin 25.5 ug/mL (5.0-40.0) 07/24/18 05:50 - Physical Exam Vitals and I&O: Vital Signs Temp 97.2 F 07/27/18 12:00 Pulse 108 07/27/18 12:00 Resp 14 07/27/18 12:00 BP 131/90 07/27/18 12:00 Pulse Ox 98 07/27/18 12:00 Intake & Output 07/26/18 07/27/18 07/27/18 18:59 06:59 18:59 Intake Total 650 100 Output Total 650 300 Balance 0 -200 Weight (lbs) 109.769 kg 109.769 kg Intake: Intake, IV Amount 100 100 Tigecycline 50 mg In 100 100 Sodium Chloride 0.9% 100 ml @ 100 mls/hr IV Q12HR [facility] Rx#:[id number] Oral 550 Output: Drainage 350 Sacrum 50 colostomy 300 Stool 300 Urine/Stool Mix 300 Other: Stool Characteristics Soft Green Weight Source Bedscale Bedscale Active Medications: Current Medications Acetaminophen (Tylenol) 650 mg PO Q6H PRN PRN Reason: Pain or Fever >101 Stop: 09/11/18 15:14 Albuterol/Ipratropium (Duoneb Neb) 3 ml HHN Q4HRT PRN PRN Reason: Shortness of Breath or Wheeze Stop: 09/11/18 15:14 Albuterol/Ipratropium (Duoneb Neb) 3 ml HHN Q6HRT VIKTORIA Stop: 09/21/18 18:59 Last Admin: 07/27/18 07:11 Dose: 3 ml Ascorbic Acid (Vitamin C) 500 mg PO DAILY VIKTORIA Stop: 09/12/18 08:59 Last Admin: 07/27/18 09:33 Dose: 500 mg Atorvastatin Calcium (Lipitor) 20 mg PO HS [facility] Stop: 09/11/18 20:59 Last Admin: 07/26/18 23:27 Dose: 20 mg Wilder Oil/[place] Balsam/Trypsin (Venelex) 1 appl TP DAILY VIKTORIA Stop: 09/13/18 08:59 Last Admin: 07/26/18 08:58 Dose: 1 appl Dextrose (Glutose 40%) 18.75 gm PO PRN PRN PRN Reason: Blood Glucose less than 70 Stop: 09/11/18 04:10 Docusate Sodium (Colace) 100 mg PO BID [facility] Stop: 09/11/18 16:59 Last Admin: 07/27/18 09:33 Dose: 100 mg Famotidine (Pepcid) 20 mg PO DAILY VIKTORIA Stop: 09/12/18 08:59 Last Admin: 07/27/18 09:33 Dose: 20 mg Folic Acid (Folate) 1 mg PO DAILY VIKTORIA Stop: 09/12/18 08:59 Last Admin: 07/27/18 09:33 Dose: 1 mg Glucagon (Glucagen) 1 mg IM PRN PRN PRN Reason: Blood Glucose less than 70 Stop: 09/11/18 04:10 Hydromorphone HCl (Dilaudid) 1 mg IVP Q4HR PRN PRN Reason: Pain (Severe) Stop: 09/20/18 20:12 Last Admin: 07/26/18 04:44 Dose: 1 mg Tigecycline 50 mg/ Sodium (Chloride) 100 mls @ 100 mls/hr IV Q12HR VIKTORIA Stop: 09/17/18 19:44 Last Admin: 07/27/18 10:53 Dose: 100 mls/hr Norepinephrine Bitartrate 4 mg (/ Dextrose) 254 mls @ 38.1 mls/hr IV TITR PRN; Protocol PRN Reason: BP MAINTENANCE (PER PROTOCOL) Stop: 09/21/18 14:18 Last Titration: 07/24/18 04:10 Dose: 0 mcg/min, 0 mls/hr Insulin Aspart (Novolog Insulin Sliding Scale) 0 units SUBQ Q6HR VIKTORIA; Protocol Stop: 09/11/18 05:59 Last Admin: 07/27/18 12:59 Dose: 4 units Lactobacillus Rhamnosus (Culturelle 15b) 1 each PO DAILY VIKTORIA Stop: 09/13/18 13:59 Last Admin: 07/27/18 09:33 Dose: 1 each Levothyroxine Sodium (Synthroid) 0.025 mg PO QDAC VIKTORIA Stop: 09/12/18 07:29 Last Admin: 07/27/18 07:01 Dose: 0.025 mg Miscellaneous (Probiotic Screen) 1 ea MC PRN PRN PRN Reason: PROTOCOL Stop: 09/13/18 11:44 Miscellaneous (Amikacin Iv Per Pharmacy) 1 ea MC PRN PRN PRN Reason: PROTOCOL Stop: 09/13/18 18:08 Oxcarbazepine (Trileptal) 600 mg PO BID VIKTORIA Stop: 09/11/18 16:59 Last Admin: 07/27/18 09:32 Dose: 600 mg Risperidone (Risperdal) 2 mg PO HS VIKTORIA Stop: 09/11/18 20:59 Last Admin: 07/26/18 23:27 Dose: 2 mg Senna (Senna) 17.2 mg PO BID VIKTORIA Stop: 09/11/18 16:59 Last Admin: 07/27/18 09:33 Dose: 17.2 mg Sevelamer Carbonate (Renvela) 800 mg PO TIDWM VIKTORIA Stop: 09/11/18 16:59 Last Admin: 07/27/18 12:59 Dose: 800 mg Vitamin B Complex/Vit C/Folic Acid (Vitamin B Complex W/Vitamin C) 1 tab PO DAILY VIKTORIA Stop: 09/12/18 08:59 Last Admin: 07/27/18 09:33 Dose: 1 tab Zinc Sulfate (Zinc Sulfate) 220 mg PO DAILY VIKTORIA Stop: 09/12/18 08:59 Last Admin: 07/27/18 09:33 Dose: 220 mg General: no acute distress, well developed, well nourished HEENT: atraumatic, normocephalic, PERRLA, EOMI Neck: supple, no thyromegaly Cardiovascular: S1S2, regular Lungs: clear to auscultation bilaterally, clear to percussion Abdomen: soft, no tender, no distended Extremities: no cyanosis, no clubbing, no edema Neurological: awake, alert, oriented Skin: other (sacral wound with wound vac) - Procedures Procedures: Procedures Procedure Code Date BYPASS DESCENDING COLON TO CUTANEOUS, OPEN APPROACH [id number] 07/12/18 EXCISION OF L LOW LEG SUBCU/FASCIA, OPEN APPROACH [id number] 07/12/18 EXCISION OF SACRUM, OPEN APPROACH [id number] 07/12/18 EXCISION OF SIGMOID COLON, OPEN APPROACH [id number] 07/12/18 RESPIRATORY VENTILATION, LESS THAN 24 CONSECUTIVE HOURS [id number] 07/12/18 Infectious Disease Assmt/Plan - Problem List Patient Problems: All Active Problems Anasarca (Acute) R60.1 Anemia (Acute) D64.9 CAD (coronary artery disease) (Acute) I25.10 CHF (congestive heart failure) (Acute) I50.9 CKD (chronic kidney disease) (Acute) N18.9 HTN (hypertension) (Acute) I10 UTI (urinary tract infection) (Acute) sacral stage 4 wound (Acute) - Assessment Assessment: 1. UTI 2. Staph CN in blood contaminant. 3. Hypoglycemia. 4. Diabetes mellitus type 1 with episodes of hypoglycemia. 5. Hypertension. 6. Anemia of chronic disease. 7. Coronary artery disease, 8. CHF.. 9. Anasarca 10. 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 11. sacral stage 4 wound. No evidence of osteimyelitis, 12. S/p Diverting colostomy. - Plan Plan: Continue tygacil for 7 days till tomorrow am. dc amikacin. wound care. Nutritional Asmnt/Malnutr-PDOC - Dietary Evaluation Malnutrition Findings (Please click <Entered> for more info): Nutritional Asmnt/Malnutrition Start: 07/13/18 13: 54 Text: Status: Complete Freq: Protocol: Document 07/13/18 13:56 MMULHERN (Rec: 07/13/18 14:10 [email or web address] ANSH- [id number]) Nutritional Asmnt/Malnutrition Patient General Information Nutritional Screening Consult Diagnosis ESRD, anasarca Pertinent Medical Hx/Surgical Hx Seizure, hep C, diabetes, CAD, HTN, CVA, quadreplegia, Parkinsons, ESRD Subjective Information Consult received for "Diabetic ". Per nursing notes, patient receives hemodialysis MWF and patient is non-verbal. Patient with 2+ pitting edema. Current Diet Order/ Nutrition Support Renal diet Patient / S.O Not Indicated Pertinent Medications D50W, D5-0.45NS @50 ml/hr, Glucagon, Novolog Pertinent Labs (07/13) Na 134, BUN 48, Cr 2.9, glucose 41-137, Ca 8.2, BNP 515, albumin 2 Nutritional Hx/Data Height 1.73 m Height (Calculated Centimeters) 172.7 Current Weight (lbs) 113.852 kg Weight (Calculated Kilograms) 113.9 Weight (Calculated Grams) 410955.7 [place] Body Weight 140 % [place] Body Weight 179 Body Mass Index (BMI) 38.1 Recent Weight Change No Weight Status Morbidly Obese GI Symptoms GI Symptoms None Last BM 07/13 x 1 Difficult in: Chewing Food Allergies No Cultural/Ethnic/Worship Belief none indicated Usual diet at home unknown Skin Integrity/Comment: Arian 10, ulceration on sacrum, left lower leg, abrasion on L heel, scar on right leg. Current %PO Good (75-100%) Estimated Nutritional Goals BEE in Kcals: Adj wt of IBW Calories/Kcals/Kg 27-32 kcal/kg (using 76.2kg ADj wt) Kcals Calculated ~9041-6701 kcal/day Protein g/k.2-1.5 gm/kg using Adj wt Protein Calculated ~90-115 gm/day Fluid: ml Per MD due to HD Nutritional Problem 2. Problem Problem Altered nutrition related lab values related to Etiology episodes of hypoglycemia, electrolyte imbalance aeb Signs/Symptoms: Na 134, glucose 41-137, Ca 8.2 1. Problem Problem Increased nutrient needs related to Etiology hypermetabolic state, impaired skin integrity aeb Signs/Symptoms: Pt on Hemodialysis and with multiple ulcerations Intervention/Recommendation Comments 1. Continue Renal diet as tolerated by patient. No need for DM restriction at this time due to hypoglycemia. 2. Consider fluid restriction due to HD, hyponatremia and edema. 3. Consider adding Prosource 1 packet with each meal for an additional 45gm protein. Expected Outcomes/Goals Expected Outcomes/Goals Oral intake >75% of meals, weight stable or trend toward ideal body weight, nutrition related labs WNL
--- NOTE | 2018-07-27 14:31 | General Progress Note ---
Subjective - Review of Systems Service Date: 07/27/18 Subjective: alert, comfortable, on puree diet, nods head Objective - Results Result Diagrams: 07/27/18 04:10 07/27/18 04:10 Recent Labs: Laboratory Last Values WBC 6.8 Th/cmm (4.8-10.8) 07/27/18 04:10 RBC 2.82 Mil/cmm (3.80-5.10) L 07/27/18 04:10 Hgb 8.0 gm/dL (12-16) L 07/27/18 04:10 Hct 24.5 % (41.0-60) L 07/27/18 04:10 MCV 86.8 fl (81-100) 07/27/18 04:10 MCH 28.3 pg (27.0-31.0) 07/27/18 04:10 MCHC Differential 32.7 pg (28.0-36.0) 07/27/18 04:10 RDW 16.3 % (11.5-20.0) 07/27/18 04:10 Plt Count 133 Th/cmm (150-400) L 07/27/18 04:10 MPV 7.2 fl 07/27/18 04:10 Add Manual Diff YES 07/18/18 09:02 Neutrophils % 60.8 % (40.0-80.0) 07/27/18 04:10 Band Neutrophils % 1 % (0-10) 07/18/18 09:02 Lymphocytes % 25.2 % (20.0-50.0) 07/27/18 04:10 Monocytes % 13.5 % (2.0-10.0) H 07/27/18 04:10 Eosinophils % 0.2 % (0.0-5.0) 07/27/18 04:10 Basophils % 0.3 % (0.0-2.0) 07/27/18 04:10 Neutrophils (Manual) 52 % (40-80) 07/18/18 09:02 Lymphocytes 36 % (20-50) 07/18/18 09:02 Monocytes 11 % (2-10) H 07/18/18 09:02 Eosinophils 0 % (0-5) 07/18/18 09:02 Basophils 0 % (0-3) 07/18/18 09:02 Platelet Estimate DECREASED PLATELETS (NORMAL) 07/18/18 09:02 PT 32.4 SECONDS (9.5-11.5) H 07/25/18 05:20 INR 3.30 (0.5-1.4) H 07/25/18 05:20 PTT (Actin FS) 43.0 SECONDS (26.0-38.0) H 07/20/18 08:08 Specimen Source Arterial 07/23/18 17:00 Sample Site LB 07/23/18 17:00 pH 7.44 (7.35-7.45) 07/23/18 17:00 pCO2 44.0 mmHg (35.0-45.0) 07/23/18 17:00 pO2 86.0 mmHg (80.0-100.0) 07/23/18 17:00 HCO3 28.9 mEq/L (20.0-26.0) H 07/23/18 17:00 Base Excess 5.1 mEq/L (-3.0-3.0) H 07/23/18 17:00 O2 Saturation 97.0 % (92.0-100.0) 07/23/18 17:00 [place] Test NA 07/23/18 17:00 Vent Rate NA 07/23/18 17:00 Inspired O2 40 07/23/18 17:00 Tidal Volume NA 07/23/18 17:00 PEEP NA 07/23/18 17:00 Pressure (ins/psv/peep) NA 07/23/18 17:00 Critical Value E.QUINTEROS 07/23/18 17:00 Sodium 137 mEq/L (136-145) 07/27/18 04:10 Potassium 3.9 mEq/L (3.5-5.1) 07/27/18 04:10 Chloride 106 mEq/L (98-107) 07/27/18 04:10 Carbon Dioxide 26.9 mEq/L (21.0-31.0) 07/27/18 04:10 Anion Gap 8.0 (7.0-16.0) 07/27/18 04:10 BUN 13 mg/dL (7-25) 07/27/18 04:10 Creatinine 2.9 mg/dL (0.6-1.2) H 07/27/18 04:10 Est GFR ( Amer) 22.1 ml/min (>90) 07/27/18 04:10 Est GFR (Non-Af Amer) 18.3 ml/min 07/27/18 04:10 BUN/Creatinine Ratio 4.5 07/27/18 04:10 Glucose 199 mg/dL (70-105) H 07/27/18 04:10 POC Glucose 216 MG/DL (70 - 105) H 07/27/18 11:41 Whole Bld Lactic Acid 1.29 mmol/L (0.60-1.99) 07/12/18 20:50 Calcium 8.6 mg/dL (8.6-10.3) 07/27/18 04:10 Magnesium 1.6 mg/dL (1.9-2.7) L 07/21/18 05:00 Total Bilirubin 0.3 mg/dL (0.3-1.0) 07/18/18 05:20 AST 18 U/L (13-39) 07/18/18 05:20 ALT 7 U/L (7-52) 07/18/18 05:20 Alkaline Phosphatase 80 U/L (34-104) 07/18/18 05:20 Creatine Kinase 20 U/L (30-223) L 07/12/18 20:50 Troponin I 0.49 ng/mL (0.01-0.05) H* 07/13/18 15:20 B-Natriuretic Peptide 515.0 pg/mL (5.0-100.0) H 07/13/18 04:00 Total Protein 4.0 gm/dL (6.0-8.3) L 07/18/18 05:20 Albumin < 1.5 gm/dL (3.7-5.3) L 07/18/18 05:20 Globulin 2.5 gm/dL 07/18/18 05:20 Albumin/Globulin Ratio 0.6 (1.0-1.8) L 07/18/18 05:20 Triglycerides 53 mg/dL (<150) 07/13/18 04:00 Cholesterol 41 mg/dL (<200) 07/13/18 04:00 LDL Cholesterol Direct 11 mg/dL (75-193) L 07/13/18 04:00 HDL Cholesterol 24 mg/dL (23-92) 07/13/18 04:00 TSH 1.21 uIU/ml (0.34-5.60) 07/13/18 04:00 Urine Source [place] 07/12/18 20:50 Urine Color YELLOW 07/12/18 20:50 Urine Clarity CLOUDY (CLEAR) H 07/12/18 20:50 Urine pH 8.5 (4.6 - 8.0) 07/12/18 20:50 Ur Specific [place] 1.015 (1.005-1.030) 07/12/18 20:50 Urine Protein 100 mg/dL (NEGATIVE) H 07/12/18 20:50 Urine Glucose (UA) NEGATIVE mg/dL (NEGATIVE) 07/12/18 20:50 Urine Ketones NEGATIVE mg/dL (NEGATIVE) 07/12/18 20:50 Urine Blood TRACE (NEGATIVE) 07/12/18 20:50 Urine Nitrate NEGATIVE (NEGATIVE) 07/12/18 20:50 Urine Bilirubin NEGATIVE (NEGATIVE) 07/12/18 20:50 Urine Urobilinogen 0.2 E.U./dL (0.2 - 1.0) 07/12/18 20:50 Ur Leukocyte Esterase LARGE (NEGATIVE) H 07/12/18 20:50 Urine RBC 2-5 /hpf (0-5) 07/12/18 20:50 Urine WBC >100 /hpf (0-5) H 07/12/18 20:50 Ur Epithelial Cells MODERATE /lpf (FEW) 07/12/18 20:50 Urine Bacteria MANY /hpf (NONE SEEN) H 07/12/18 20:50 Amikacin Peak 35.4 ug/mL (20.0-30.0) H 07/25/18 23:55 Amikacin Trough 6.9 ug/mL (1.0-8.0) 07/23/18 18:00 Random Amikacin 14.8 ug/ml (1.0-30.0) 07/25/18 17:00 Random Vancomycin 25.5 ug/mL (5.0-40.0) 07/24/18 05:50 - Physical Exam Vitals and I&O: Vital Signs Temp 97.2 F 07/27/18 12:00 Pulse 103 07/27/18 13:29 Resp 18 07/27/18 13:29 BP 131/90 07/27/18 12:00 Pulse Ox 100 07/27/18 13:29 Intake & Output 07/26/18 07/27/1818 18:59 06:59 18:59 Intake Total 650 100 Output Total 650 300 Balance 0 -200 Weight (lbs) 109.769 kg 109.769 kg Intake: Intake, IV Amount 100 100 Tigecycline 50 mg In 100 100 Sodium Chloride 0.9% 100 ml @ 100 mls/hr IV Q12HR [facility] Rx#:[id number] Oral 550 Output: Drainage 350 Sacrum 50 colostomy 300 Stool 300 Urine/Stool Mix 300 Other: Stool Characteristics Soft Green Weight Source Bedscale Bedscale Active Medications: Current Medications Acetaminophen (Tylenol) 650 mg PO Q6H PRN PRN Reason: Pain or Fever >101 Stop: 09/11/18 15:14 Albuterol/Ipratropium (Duoneb Neb) 3 ml HHN Q4HRT PRN PRN Reason: Shortness of Breath or Wheeze Stop: 09/11/18 15:14 Albuterol/Ipratropium (Duoneb Neb) 3 ml HHN Q6HRT [facility] Stop: 09/21/18 18:59 Last Admin: 07/27/18 13:29 Dose: 3 ml Ascorbic Acid (Vitamin C) 500 mg PO DAILY [facility] Stop: 09/12/18 08:59 Last Admin: 07/27/18 09:33 Dose: 500 mg Atorvastatin Calcium (Lipitor) 20 mg PO HS [facility] Stop: 09/11/18 20:59 Last Admin: 07/26/18 23:27 Dose: 20 mg [place] Oil/[place] Balsam/Trypsin (Venelex) 1 appl TP DAILY [facility] Stop: 09/13/18 08:59 Last Admin: 07/26/18 08:58 Dose: 1 appl Dextrose (Glutose 40%) 18.75 gm PO PRN PRN PRN Reason: Blood Glucose less than 70 Stop: 09/11/18 04:10 Docusate Sodium (Colace) 100 mg PO BID [facility] Stop: 09/11/18 16:59 Last Admin: 07/27/18 09:33 Dose: 100 mg Famotidine (Pepcid) 20 mg PO DAILY [facility] Stop: 09/12/18 08:59 Last Admin: 07/27/18 09:33 Dose: 20 mg Folic Acid (Folate) 1 mg PO DAILY [facility] Stop: 09/12/18 08:59 Last Admin: 07/27/18 09:33 Dose: 1 mg Glucagon (Glucagen) 1 mg IM PRN PRN PRN Reason: Blood Glucose less than 70 Stop: 09/11/18 04:10 Hydromorphone HCl (Dilaudid) 1 mg IVP Q4HR PRN PRN Reason: Pain (Severe) Stop: 09/20/18 20:12 Last Admin: 07/26/18 04:44 Dose: 1 mg Tigecycline 50 mg/ Sodium (Chloride) 100 mls @ 100 mls/hr IV Q12HR [facility] Stop: 09/17/18 19:44 Last Admin: 07/27/18 10:53 Dose: 100 mls/hr Norepinephrine Bitartrate 4 mg (/ Dextrose) 254 mls @ 38.1 mls/hr IV TITR PRN; Protocol PRN Reason: BP MAINTENANCE (PER PROTOCOL) Stop: 09/21/18 14:18 Last Titration: 07/24/18 04:10 Dose: 0 mcg/min, 0 mls/hr Insulin Aspart (Novolog Insulin Sliding Scale) 0 units SUBQ Q6HR [facility]; Protocol Stop: 09/11/18 05:59 Last Admin: 07/27/18 12:59 Dose: 4 units Lactobacillus Rhamnosus (Culturelle 15b) 1 each PO DAILY [facility] Stop: 09/13/18 13:59 Last Admin: 07/27/18 09:33 Dose: 1 each Levothyroxine Sodium (Synthroid) 0.025 mg PO QDAC [facility] Stop: 09/12/18 07:29 Last Admin: 07/27/18 07:01 Dose: 0.025 mg Miscellaneous (Probiotic Screen) 1 ea MC PRN PRN PRN Reason: PROTOCOL Stop: 09/13/18 11:44 Oxcarbazepine (Trileptal) 600 mg PO BID [facility] Stop: 09/11/18 16:59 Last Admin: 07/27/18 09:32 Dose: 600 mg Risperidone (Risperdal) 2 mg PO HS [facility] Stop: 09/11/18 20:59 Last Admin: 07/26/18 23:27 Dose: 2 mg Senna (Senna) 17.2 mg PO BID [facility] Stop: 09/11/18 16:59 Last Admin: 07/27/18 09:33 Dose: 17.2 mg Sevelamer Carbonate (Renvela) 800 mg PO TIDWM [facility] Stop: 09/11/18 16:59 Last Admin: 07/27/18 12:59 Dose: 800 mg Vitamin B Complex/Vit C/Folic Acid (Vitamin B Complex W/Vitamin C) 1 tab PO DAILY [facility] Stop: 09/12/18 08:59 Last Admin: 07/27/18 09:33 Dose: 1 tab Zinc Sulfate (Zinc Sulfate) 220 mg PO DAILY [facility] Stop: 09/12/18 08:59 Last Admin: 07/27/18 09:33 Dose: 220 mg General: Alert, Mild distress HEENT: Atraumatic, EOMI Neck: Supple, +2 carotid pulse wo bruit Cardiovascular: Regular rate, Normal S1, Normal S2 Lungs: Other (scattered rhonchi) Abdomen: Bowel sounds, Soft Extremities: Edema ((+) 2-3 edema), Other ((+) 2 bipedal edema) Neurological: Sensation intact Skin: no Rash Psych/Mental Status: Mood NL - Procedures Procedures: Procedures Procedure Code Date BYPASS DESCENDING COLON TO CUTANEOUS, OPEN APPROACH [id number] 07/12/18 EXCISION OF L LOW LEG SUBCU/FASCIA, OPEN APPROACH [id number] 07/12/18 EXCISION OF SACRUM, OPEN APPROACH [id number] 07/12/18 EXCISION OF SIGMOID COLON, OPEN APPROACH [id number] 07/12/18 RESPIRATORY VENTILATION, LESS THAN 24 CONSECUTIVE HOURS [id number] 07/12/18 Assessment/Plan - Problem List Patient Problems: All Active Problems Anasarca (Acute) R60.1 Anemia (Acute) D64.9 CAD (coronary artery disease) (Acute) I25.10 CHF (congestive heart failure) (Acute) I50.9 CKD (chronic kidney disease) (Acute) N18.9 HTN (hypertension) (Acute) I10 UTI (urinary tract infection) (Acute) sacral stage 4 wound (Acute) - Assessment Assessment: ESRD on HD Hypothyroid Parkinson Ds. Fnc Quad Hep B,C GERD Left Calf ulcer Sacral Decub ulcer stage 4, w/ wound vacuum Cholelithiasis B/L HAP w/ effusions Peripheral edema Left SFV DVT S/P Diverting Colostomy - Plan Plan: Lab - Result Diagrams 07/14/18 05:00 07/14/18 05:00 Current Medications Acetaminophen (Tylenol) 650 mg PO Q6H PRN PRN Reason: Pain or Fever >101 Stop: 09/11/18 15:14 Acetaminophen/Hydrocodone Bitart ([place] 5mg/325mg) 1 tab PO Q6H PRN PRN Reason: Pain (Severe) Stop: 09/11/18 15:14 Albuterol/Ipratropium (Duoneb Neb) 3 ml HHN Q4HRT PRN PRN Reason: Shortness of Breath or Wheeze Stop: 09/11/18 15:14 Ascorbic Acid (Vitamin C) 500 mg PO DAILY [facility] Stop: 09/12/18 08:59 Last Admin: 07/14/18 08:27 Dose: 500 mg Atorvastatin Calcium (Lipitor) 20 mg PO HS [facility] Stop: 09/11/18 20:59 Last Admin: 07/13/18 21:05 Dose: 20 mg Dextrose (D50w) 50 ml IVP PRN PRN PRN Reason: Blood Glucose less than 70 Stop: 09/11/18 04:10 Dextrose (Glutose 40%) 18.75 gm PO PRN PRN PRN Reason: Blood Glucose less than 70 Stop: 09/11/18 04:10 Docusate Sodium (Colace) 100 mg PO BID [facility] Stop: 09/11/18 16:59 Last Admin: 07/14/18 08:27 Dose: 100 mg Famotidine (Pepcid) 20 mg PO DAILY [facility] Stop: 09/12/18 08:59 Last Admin: 07/14/18 08:27 Dose: 20 mg Folic Acid (Folate) 1 mg PO DAILY [facility] Stop: 09/12/18 08:59 Last Admin: 07/14/18 08:27 Dose: 1 mg Glucagon (Glucagen) 1 mg IM PRN PRN PRN Reason: Blood Glucose less than 70 Stop: 09/11/18 04:10 Piperacillin Sod/Tazobactam (Sod 2.25 gm/ Sodium Chloride) 50 mls @ 100 mls/hr IV Q6H [facility] Stop: 09/11/18 05:59 Last Admin: 07/14/18 06:05 Dose: Not Given Dextrose/Sodium Chloride (D5-0.45ns) 1,000 mls @ 50 mls/hr IV .Q20H [facility] Stop: 09/11/18 02:29 Last Admin: 07/13/18 04:03 Dose: 50 mls/hr Insulin Aspart (Novolog Insulin Sliding Scale) 0 units SUBQ Q6HR [facility]; Protocol Stop: 09/11/18 05:59 Last Admin: 07/14/18 06:05 Dose: Not Given Levothyroxine Sodium (Synthroid) 0.025 mg PO QDAC [facility] Stop: 09/12/18 07:29 Last Admin: 07/14/18 06:35 Dose: 0.025 mg Miscellaneous (Vancomycin Iv Per Pharmacy) 1 ea PRN PRN PRN Reason: PROTOCOL Stop: 09/10/18 23:40 Oxcarbazepine (Trileptal) 600 mg PO BID [facility] Stop: 09/11/18 16:59 Last Admin: 07/14/18 08:27 Dose: 600 mg Risperidone (Risperdal) 2 mg PO HS [facility] Stop: 09/11/18 20:59 Last Admin: 07/13/18 21:05 Dose: 2 mg Senna (Senna) 17.2 mg PO BID [facility] Stop: 09/11/18 16:59 Last Admin: 07/14/18 08:27 Dose: 17.2 mg Sevelamer Carbonate (Renvela) 800 mg PO TIDWM [facility] Stop: 09/11/18 16:59 Last Admin: 07/14/18 08:27 Dose: 800 mg Temazepam (Restoril) 15 mg PO HS PRN; Protocol PRN Reason: Insomnia Stop: 09/11/18 15:14 Vitamin B Complex/Vit C/Folic Acid (Vitamin B Complex W/Vitamin C) 1 tab PO DAILY [facility] Stop: 09/12/18 08:59 Last Admin: 07/14/18 08:27 Dose: 1 tab Zinc Sulfate (Zinc Sulfate) 220 mg PO DAILY [facility] Stop: 09/12/18 08:59 Last Admin: 07/14/18 08:27 Dose: 220 m Lab - Result Diagrams 07/27/18 04:10 07/27/18 04:10 continue wound care Pt. had diverting colostomy CXR still w/ persistent B/L effusion L>R schedule for HD today due to persistent effusions & peripheral edema started on Puree diet for CXR Nutritional Asmnt/Malnutr-PDOC - Dietary Evaluation Malnutrition Findings (Please click <Entered> for more info): Nutritional Asmnt/Malnutrition Start: 07/13/18 13: 54 Text: Status: Complete Freq: Protocol: Document 07/13/18 13:56 ALDAIR (Rec: 07/13/18 14:10 ALDAIR SAAD- [id number]) Nutritional Asmnt/Malnutrition Patient General Information Nutritional Screening Consult Diagnosis ESRD, anasarca Pertinent Medical Hx/Surgical Hx Seizure, hep C, diabetes, CAD, HTN, CVA, quadreplegia, Parkinsons, ESRD Subjective Information Consult received for "Diabetic ". Per nursing notes, patient receives hemodialysis MWF and patient is non-verbal. Patient with 2+ pitting edema. Current Diet Order/ Nutrition Support Renal diet Patient / S.O Not Indicated Pertinent Medications D50W, D5-0.45NS @50 ml/hr, Glucagon, Novolog Pertinent Labs (07/13) Na 134, BUN 48, Cr 2.9, glucose 41-137, Ca 8.2, BNP 515, albumin 2 Nutritional Hx/Data Height 1.73 m Height (Calculated Centimeters) 172.7 Current Weight (lbs) 113.852 kg Weight (Calculated Kilograms) 113.9 Weight (Calculated Grams) 143461.7 [place] Body Weight 140 % [place] Body Weight 179 Body Mass Index (BMI) 38.1 Recent Weight Change No Weight Status Morbidly Obese GI Symptoms GI Symptoms None Last BM 07/13 x 1 Difficult in: Chewing Food Allergies No Cultural/Ethnic/[employer] Belief none indicated Usual diet at home unknown Skin Integrity/Comment: Arian 10, ulceration on sacrum, left lower leg, abrasion on L heel, scar on right leg. Current %PO Good (75-100%) Estimated Nutritional Goals BEE in Kcals: Adj wt of IBW Calories/Kcals/Kg 27-32 kcal/kg (using 76.2kg ADj wt) Kcals Calculated ~0195-6141 kcal/day Protein g/k.2-1.5 gm/kg using Adj wt Protein Calculated ~90-115 gm/day Fluid: ml Per MD due to HD Nutritional Problem 2. Problem Problem Altered nutrition related lab values related to Etiology episodes of hypoglycemia, electrolyte imbalance aeb Signs/Symptoms: Na 134, glucose 41-137, Ca 8.2 1. Problem Problem Increased nutrient needs related to Etiology hypermetabolic state, impaired skin integrity aeb Signs/Symptoms: Pt on Hemodialysis and with multiple ulcerations Intervention/Recommendation Comments 1. Continue Renal diet as tolerated by patient. No need for DM restriction at this time due to hypoglycemia. 2. Consider fluid restriction due to HD, hyponatremia and edema. 3. Consider adding Prosource 1 packet with each meal for an additional 45gm protein. Expected Outcomes/Goals Expected Outcomes/Goals Oral intake >75% of meals, weight stable or trend toward ideal body weight, nutrition related labs WNL
[2018-07-27] MEDS: HYDROmorphone 1 mg/mL 1mL Syr IVP PRN (14:55)
--- NOTE | 2018-07-27 15:59 | General Progress Note ---
Subjective - Review of Systems Events since last encounter: awake alert comfortable Objective - Results Result Diagrams: 07/27/18 04:10 07/27/18 04:10 Recent Labs: Laboratory Last Values WBC 6.8 Th/cmm (4.8-10.8) 07/27/18 04:10 RBC 2.82 Mil/cmm (3.80-5.10) L 07/27/18 04:10 Hgb 8.0 gm/dL (12-16) L 07/27/18 04:10 Hct 24.5 % (41.0-60) L 07/27/18 04:10 MCV 86.8 fl (81-100) 07/27/18 04:10 MCH 28.3 pg (27.0-31.0) 07/27/18 04:10 MCHC Differential 32.7 pg (28.0-36.0) 07/27/18 04:10 RDW 16.3 % (11.5-20.0) 07/27/18 04:10 Plt Count 133 Th/cmm (150-400) L 07/27/18 04:10 MPV 7.2 fl 07/27/18 04:10 Add Manual Diff YES 07/18/18 09:02 Neutrophils % 60.8 % (40.0-80.0) 07/27/18 04:10 Band Neutrophils % 1 % (0-10) 07/18/18 09:02 Lymphocytes % 25.2 % (20.0-50.0) 07/27/18 04:10 Monocytes % 13.5 % (2.0-10.0) H 07/27/18 04:10 Eosinophils % 0.2 % (0.0-5.0) 07/27/18 04:10 Basophils % 0.3 % (0.0-2.0) 07/27/18 04:10 Neutrophils (Manual) 52 % (40-80) 07/18/18 09:02 Lymphocytes 36 % (20-50) 07/18/18 09:02 Monocytes 11 % (2-10) H 07/18/18 09:02 Eosinophils 0 % (0-5) 07/18/18 09:02 Basophils 0 % (0-3) 07/18/18 09:02 Platelet Estimate DECREASED PLATELETS (NORMAL) 07/18/18 09:02 PT 32.4 SECONDS (9.5-11.5) H 07/25/18 05:20 INR 3.30 (0.5-1.4) H 07/25/18 05:20 PTT (Actin FS) 43.0 SECONDS (26.0-38.0) H 07/20/18 08:08 Specimen Source Arterial 07/23/18 17:00 Sample Site LB 07/23/18 17:00 pH 7.44 (7.35-7.45) 07/23/18 17:00 pCO2 44.0 mmHg (35.0-45.0) 07/23/18 17:00 pO2 86.0 mmHg (80.0-100.0) 07/23/18 17:00 HCO3 28.9 mEq/L (20.0-26.0) H 07/23/18 17:00 Base Excess 5.1 mEq/L (-3.0-3.0) H 07/23/18 17:00 O2 Saturation 97.0 % (92.0-100.0) 07/23/18 17:00 [place] Test NA 07/23/18 17:00 Vent Rate NA 07/23/18 17:00 Inspired O2 40 07/23/18 17:00 Tidal Volume NA 07/23/18 17:00 PEEP NA 07/23/18 17:00 Pressure (ins/psv/peep) NA 07/23/18 17:00 Critical Value E.QUINTEROS 07/23/18 17:00 Sodium 137 mEq/L (136-145) 07/27/18 04:10 Potassium 3.9 mEq/L (3.5-5.1) 07/27/18 04:10 Chloride 106 mEq/L (98-107) 07/27/18 04:10 Carbon Dioxide 26.9 mEq/L (21.0-31.0) 07/27/18 04:10 Anion Gap 8.0 (7.0-16.0) 07/27/18 04:10 BUN 13 mg/dL (7-25) 07/27/18 04:10 Creatinine 2.9 mg/dL (0.6-1.2) H 07/27/18 04:10 Est GFR ( Amer) 22.1 ml/min (>90) 07/27/18 04:10 Est GFR (Non-Af Amer) 18.3 ml/min 07/27/18 04:10 BUN/Creatinine Ratio 4.5 07/27/18 04:10 Glucose 199 mg/dL (70-105) H 07/27/18 04:10 POC Glucose 216 MG/DL (70 - 105) H 07/27/18 11:41 Whole Bld Lactic Acid 1.29 mmol/L (0.60-1.99) 07/12/18 20:50 Calcium 8.6 mg/dL (8.6-10.3) 07/27/18 04:10 Magnesium 1.6 mg/dL (1.9-2.7) L 07/21/18 05:00 Total Bilirubin 0.3 mg/dL (0.3-1.0) 07/18/18 05:20 AST 18 U/L (13-39) 07/18/18 05:20 ALT 7 U/L (7-52) 07/18/18 05:20 Alkaline Phosphatase 80 U/L (34-104) 07/18/18 05:20 Creatine Kinase 20 U/L (30-223) L 07/12/18 20:50 Troponin I 0.49 ng/mL (0.01-0.05) H* 07/13/18 15:20 B-Natriuretic Peptide 515.0 pg/mL (5.0-100.0) H 07/13/18 04:00 Total Protein 4.0 gm/dL (6.0-8.3) L 07/18/18 05:20 Albumin < 1.5 gm/dL (3.7-5.3) L 07/18/18 05:20 Globulin 2.5 gm/dL 07/18/18 05:20 Albumin/Globulin Ratio 0.6 (1.0-1.8) L 07/18/18 05:20 Triglycerides 53 mg/dL (<150) 07/13/18 04:00 Cholesterol 41 mg/dL (<200) 07/13/18 04:00 LDL Cholesterol Direct 11 mg/dL (75-193) L 07/13/18 04:00 HDL Cholesterol 24 mg/dL (23-92) 07/13/18 04:00 TSH 1.21 uIU/ml (0.34-5.60) 07/13/18 04:00 Urine Source [place] 07/12/18 20:50 Urine Color YELLOW 07/12/18 20:50 Urine Clarity CLOUDY (CLEAR) H 07/12/18 20:50 Urine pH 8.5 (4.6 - 8.0) 07/12/18 20:50 Ur Specific Model 1.015 (1.005-1.030) 07/12/18 20:50 Urine Protein 100 mg/dL (NEGATIVE) H 07/12/18 20:50 Urine Glucose (UA) NEGATIVE mg/dL (NEGATIVE) 07/12/18 20:50 Urine Ketones NEGATIVE mg/dL (NEGATIVE) 07/12/18 20:50 Urine Blood TRACE (NEGATIVE) 07/12/18 20:50 Urine Nitrate NEGATIVE (NEGATIVE) 07/12/18 20:50 Urine Bilirubin NEGATIVE (NEGATIVE) 07/12/18 20:50 Urine Urobilinogen 0.2 E.U./dL (0.2 - 1.0) 07/12/18 20:50 Ur Leukocyte Esterase LARGE (NEGATIVE) H 07/12/18 20:50 Urine RBC 2-5 /hpf (0-5) 07/12/18 20:50 Urine WBC >100 /hpf (0-5) H 07/12/18 20:50 Ur Epithelial Cells MODERATE /lpf (FEW) 07/12/18 20:50 Urine Bacteria MANY /hpf (NONE SEEN) H 07/12/18 20:50 Amikacin Peak 35.4 ug/mL (20.0-30.0) H 07/25/18 23:55 Amikacin Trough 6.9 ug/mL (1.0-8.0) 07/23/18 18:00 Random Amikacin 14.8 ug/ml (1.0-30.0) 07/25/18 17:00 Random Vancomycin 25.5 ug/mL (5.0-40.0) 07/24/18 05:50 - Physical Exam Vitals and I&O: Vital Signs Temp 97.2 F 07/27/18 12:00 Pulse 103 07/27/18 13:29 Resp 18 07/27/18 13:29 BP 131/90 07/27/18 12:00 Pulse Ox 100 07/27/18 13:29 Intake & Output 07/26/18 07/27/18 07/27/18 18:59 06:59 18:59 Intake Total 650 100 100 Output Total 650 300 Balance 0 -200 100 Weight (lbs) 109.769 kg 109.769 kg Intake: Intake, IV Amount 100 100 100 Tigecycline 50 mg In 100 100 100 Sodium Chloride 0.9% 100 ml @ 100 mls/hr IV Q12HR [facility] Rx#:[id number] Oral 550 Output: Drainage 350 Sacrum 50 colostomy 300 Stool 300 Urine/Stool Mix 300 Other: Stool Characteristics Soft Green Weight Source Bedscale Bedscale Active Medications: Current Medications Acetaminophen (Tylenol) 650 mg PO Q6H PRN PRN Reason: Pain or Fever >101 Stop: 09/11/18 15:14 Albuterol/Ipratropium (Duoneb Neb) 3 ml HHN Q4HRT PRN PRN Reason: Shortness of Breath or Wheeze Stop: 09/11/18 15:14 Albuterol/Ipratropium (Duoneb Neb) 3 ml HHN Q6HRT [facility] Stop: 09/21/18 18:59 Last Admin: 07/27/18 13:29 Dose: 3 ml Ascorbic Acid (Vitamin C) 500 mg PO DAILY [facility] Stop: 09/12/18 08:59 Last Admin: 07/27/18 09:33 Dose: 500 mg Atorvastatin Calcium (Lipitor) 20 mg PO HS [facility] Stop: 09/11/18 20:59 Last Admin: 07/26/18 23:27 Dose: 20 mg [place] Oil/[place] Balsam/Trypsin (Venelex) 1 appl TP DAILY [facility] Stop: 09/13/18 08:59 Last Admin: 07/26/18 08:58 Dose: 1 appl Dextrose (Glutose 40%) 18.75 gm PO PRN PRN PRN Reason: Blood Glucose less than 70 Stop: 09/11/18 04:10 Docusate Sodium (Colace) 100 mg PO BID [facility] Stop: 09/11/18 16:59 Last Admin: 07/27/18 09:33 Dose: 100 mg Famotidine (Pepcid) 20 mg PO DAILY [facility] Stop: 09/12/18 08:59 Last Admin: 07/27/18 09:33 Dose: 20 mg Folic Acid (Folate) 1 mg PO DAILY [facility] Stop: 09/12/18 08:59 Last Admin: 07/27/18 09:33 Dose: 1 mg Glucagon (Glucagen) 1 mg IM PRN PRN PRN Reason: Blood Glucose less than 70 Stop: 09/11/18 04:10 Heparin Sodium (Porcine) (Heparin) 5,000 units SUBQ Q12HR [facility] Stop: 09/25/18 20:59 Hydromorphone HCl (Dilaudid) 1 mg IVP Q4HR PRN PRN Reason: Pain (Severe) Stop: 09/20/18 20:12 Last Admin: 07/27/18 14:55 Dose: 1 mg Tigecycline 50 mg/ Sodium (Chloride) 100 mls @ 100 mls/hr IV Q12HR [facility] Stop: 09/17/18 19:44 Last Infusion: 07/27/18 12:00 Dose: Infused Norepinephrine Bitartrate 4 mg (/ Dextrose) 254 mls @ 38.1 mls/hr IV TITR PRN; Protocol PRN Reason: BP MAINTENANCE (PER PROTOCOL) Stop: 09/21/18 14:18 Last Titration: 07/24/18 04:10 Dose: 0 mcg/min, 0 mls/hr Insulin Aspart (Novolog Insulin Sliding Scale) 0 units SUBQ Q6HR [facility]; Protocol Stop: 09/11/18 05:59 Last Admin: 07/27/18 12:59 Dose: 4 units Lactobacillus Rhamnosus (Culturelle 15b) 1 each PO DAILY [facility] Stop: 09/13/18 13:59 Last Admin: 07/27/18 09:33 Dose: 1 each Levothyroxine Sodium (Synthroid) 0.025 mg PO QDAC [facility] Stop: 09/12/18 07:29 Last Admin: 07/27/18 07:01 Dose: 0.025 mg Miscellaneous (Probiotic Screen) 1 ea MC PRN PRN PRN Reason: PROTOCOL Stop: 09/13/18 11:44 Oxcarbazepine (Trileptal) 600 mg PO BID [facility] Stop: 09/11/18 16:59 Last Admin: 07/27/18 09:32 Dose: 600 mg Risperidone (Risperdal) 2 mg PO HS [facility] Stop: 09/11/18 20:59 Last Admin: 07/26/18 23:27 Dose: 2 mg Senna (Senna) 17.2 mg PO BID [facility] Stop: 09/11/18 16:59 Last Admin: 07/27/18 09:33 Dose: 17.2 mg Sevelamer Carbonate (Renvela) 800 mg PO TIDWM [facility] Stop: 09/11/18 16:59 Last Admin: 07/27/18 12:59 Dose: 800 mg Vitamin B Complex/Vit C/Folic Acid (Vitamin B Complex W/Vitamin C) 1 tab PO DAILY [facility] Stop: 09/12/18 08:59 Last Admin: 07/27/18 09:33 Dose: 1 tab Zinc Sulfate (Zinc Sulfate) 220 mg PO DAILY [facility] Stop: 09/12/18 08:59 Last Admin: 07/27/18 09:33 Dose: 220 mg General: Alert, Mild distress HEENT: Atraumatic, EOMI Neck: Supple, +2 carotid pulse wo bruit Cardiovascular: Regular rate, Normal S1, Normal S2 Lungs: Other (scattered rhonchi) Abdomen: Bowel sounds, Soft Extremities: Edema ((+) 2-3 edema), Other ((+) 2 bipedal edema) Neurological: Sensation intact Skin: no Rash Psych/Mental Status: Mood NL - Procedures Procedures: Procedures Procedure Code Date BYPASS DESCENDING COLON TO CUTANEOUS, OPEN APPROACH [id number] 07/12/18 EXCISION OF L LOW LEG SUBCU/FASCIA, OPEN APPROACH [id number] 07/12/18 EXCISION OF SACRUM, OPEN APPROACH [id number] 07/12/18 EXCISION OF SIGMOID COLON, OPEN APPROACH [id number] 07/12/18 RESPIRATORY VENTILATION, LESS THAN 24 CONSECUTIVE HOURS [id number] 07/12/18 Assessment/Plan - Problem List Patient Problems: All Active Problems Anasarca (Acute) R60.1 Anemia (Acute) D64.9 CAD (coronary artery disease) (Acute) I25.10 CHF (congestive heart failure) (Acute) I50.9 CKD (chronic kidney disease) (Acute) N18.9 HTN (hypertension) (Acute) I10 UTI (urinary tract infection) (Acute) sacral stage 4 wound (Acute) - Plan Plan: as per order sheet Nutritional Asmnt/Malnutr-PDOC - Dietary Evaluation Malnutrition Findings (Please click <Entered> for more info): Nutritional Asmnt/Malnutrition Start: 07/13/18 13: 54 Text: Status: Complete Freq: Protocol: Document 07/13/18 13:56 ALDAIR (Rec: 07/13/18 14:10 MMERIN [email or web address]) Nutritional Asmnt/Malnutrition Patient General Information Nutritional Screening Consult Diagnosis ESRD, anasarca Pertinent Medical Hx/Surgical Hx Seizure, hep C, diabetes, CAD, HTN, CVA, quadreplegia, Parkinsons, ESRD Subjective Information Consult received for "Diabetic ". Per nursing notes, patient receives hemodialysis MWF and patient is non-verbal. Patient with 2+ pitting edema. Current Diet Order/ Nutrition Support Renal diet Patient / S.O Not Indicated Pertinent Medications D50W, D5-0.45NS @50 ml/hr, Glucagon, Novolog Pertinent Labs (07/13) Na 134, BUN 48, Cr 2.9, glucose 41-137, Ca 8.2, BNP 515, albumin 2 Nutritional Hx/Data Height 1.73 m Height (Calculated Centimeters) 172.7 Current Weight (lbs) 113.852 kg Weight (Calculated Kilograms) 113.9 Weight (Calculated Grams) 385847.7 [place] Body Weight 140 % [place] Body Weight 179 Body Mass Index (BMI) 38.1 Recent Weight Change No Weight Status Morbidly Obese GI Symptoms GI Symptoms None Last BM 07/13 x 1 Difficult in: Chewing Food Allergies No Cultural/Ethnic/Yazdanism Belief none indicated Usual diet at home unknown Skin Integrity/Comment: Arian 10, ulceration on sacrum, left lower leg, abrasion on L heel, scar on right leg. Current %PO Good (75-100%) Estimated Nutritional Goals BEE in Kcals: Adj wt of IBW Calories/Kcals/Kg 27-32 kcal/kg (using 76.2kg ADj wt) Kcals Calculated ~2378-9137 kcal/day Protein g/k.2-1.5 gm/kg using Adj wt Protein Calculated ~90-115 gm/day Fluid: ml Per MD due to HD Nutritional Problem 2. Problem Problem Altered nutrition related lab values related to Etiology episodes of hypoglycemia, electrolyte imbalance aeb Signs/Symptoms: Na 134, glucose 41-137, Ca 8.2 1. Problem Problem Increased nutrient needs related to Etiology hypermetabolic state, impaired skin integrity aeb Signs/Symptoms: Pt on Hemodialysis and with multiple ulcerations Intervention/Recommendation Comments 1. Continue Renal diet as tolerated by patient. No need for DM restriction at this time due to hypoglycemia. 2. Consider fluid restriction due to HD, hyponatremia and edema. 3. Consider adding Prosource 1 packet with each meal for an additional 45gm protein. Expected Outcomes/Goals Expected Outcomes/Goals Oral intake >75% of meals, weight stable or trend toward ideal body weight, nutrition related labs WNL
[2018-07-27] MEDS: Venelex 60gm Tube TP SCH (16:31)
[2018-07-27] MEDS: Atorvastatin Calcium 10 MG TAB PO SCH (21:28)
[2018-07-28] MEDS: INSULIN ASPART SLIDING SCALE 100 UNITS/ML UNIT SUBQ SCH ×4 (00:31→18:17)
[2018-07-28] MEDS: Albuterol/Ipratropium Neb 3 ML AERS HHN SCH ×4 (00:49→19:17)
[2018-07-28 04:31] LABS: MEAN CORPUSCULAR HGB CONC 32.6 pg (28.0-36.0)
[2018-07-28 04:45] LABS: HEMATOCRIT 22.8 % (41.0-60); MEAN CELL VOLUME 87.3 fl (81-100); MEAN CORPUSCULAR HEMOGLOBIN 28.5 pg (27.0-31.0); PLATELET COUNT 113 Th/cmm (150-400); RED BLOOD COUNT 2.61 Mil/cmm (3.80-5.10); RED CELL DISTRIBUTION WIDTH 16.8 % (11.5-20.0); WHITE BLOOD COUNT 5.6 Th/cmm (4.8-10.8)
[2018-07-28] MEDS: HYDROmorphone 1 mg/mL 1mL Syr IVP PRN ×2 (05:11→16:34)
[2018-07-28 05:19] LABS: INR 1.67 (0.5-1.4)
[2018-07-28] MEDS: Levothyroxine 0.025 Mg Tab PO SCH (06:52)
[2018-07-28 06:54] LABS: BAND NEUTROPHILE 0 % (0-10); BASOPHIL 0 % (0-3); EOSINOPHIL 0 % (0-5); LYMPHOCYTE 30 % (20-50); MONOCYTE 10 % (2-10); NEUTROPHILS 60 % (40-80)
[2018-07-28 06:55] LABS: PLATELET ESTIMATE DECREASED PLATELETS (NORMAL)
[2018-07-28 07:29] LABS: ANION GAP 8.2 (7.0-16.0); CALCIUM SERUM 8.5 mg/dL (8.6-10.3); CARBON DIOXIDE 25.8 mEq/L (21.0-31.0); CREATININE - SERUM 2.3 mg/dL (0.6-1.2); GFR AFRICAN-AMERICAN 28.9 ml/min (>90); GFR NON AFRICAN-AMERICAN 23.9 ml/min
[2018-07-28 08:31] LABS: HEMATOCRIT 24.6 % (41.0-60); HEMOGLOBIN 8.2 gm/dL (12-16)
[2018-07-28] MEDS: Lactobacillus Rhamnosus GG 15 Billion CFU CAP.SPRINK PO SCH (08:46)
[2018-07-28] MEDS: Vitamin B Complex w/Vitamin C Tab PO SCH (08:47)
[2018-07-28] MEDS: Docusate Sodium 100 mg/10 mL UD PO SCH ×2 (08:47→16:34)
--- NOTE | 2018-07-28 09:07 | Diagnostic Imaging Report ---
Portable chest x-ray HISTORY: Shortness of breath Compared with the prior exam of 07/26/2018, persistent density is seen within the left lower hemithorax consistent with a pleural effusion. Question minimal right pleural effusion. IMPRESSION: 1. Persistent density within the left lower hemithorax consistent with a pleural effusion. Question minimal right pleural effusion.
--- NOTE | 2018-07-28 13:27 | Internal Medicine Prog Note ---
Internal Medicine Subjective - Subjective Service Date: 07/28/18 Patient is:: awake Per staff patient has:: tolerating meds Internal Medicine Objective - Results Result Diagrams: 07/28/18 07:30 07/28/18 04:20 Recent Labs: Laboratory Last Values WBC 5.6 Th/cmm (4.8-10.8) 07/28/18 04:20 RBC 2.61 Mil/cmm (3.80-5.10) L 07/28/18 04:20 Hgb 8.2 gm/dL (12-16) L 07/28/18 07:30 Hct 24.6 % (41.0-60) L 07/28/18 07:30 MCV 87.3 fl (81-100) 07/28/18 04:20 MCH 28.5 pg (27.0-31.0) 07/28/18 04:20 MCHC Differential 32.6 pg (28.0-36.0) 07/28/18 04:20 RDW 16.8 % (11.5-20.0) 07/28/18 04:20 Plt Count 113 Th/cmm (150-400) L 07/28/18 04:20 MPV 8.0 fl 07/28/18 04:20 Add Manual Diff YES 07/28/18 04:20 Neutrophils % GUM SPRAYER 07/28/18 04:20 Band Neutrophils % 0 % (0-10) 07/28/18 04:20 Lymphocytes % GUM SPRAYER 07/28/18 04:20 Monocytes % GUM SPRAYER 07/28/18 04:20 Eosinophils % GUM SPRAYER 07/28/18 04:20 Basophils % 0.3 % (0.0-2.0) 07/27/18 04:10 Neutrophils (Manual) 60 % (40-80) 07/28/18 04:20 Lymphocytes 30 % (20-50) 07/28/18 04:20 Monocytes 10 % (2-10) 07/28/18 04:20 Eosinophils 0 % (0-5) 07/28/18 04:20 Basophils 0 % (0-3) 07/28/18 04:20 Platelet Estimate DECREASED PLATELETS (NORMAL) 07/28/18 04:20 PT 17.0 SECONDS (9.5-11.5) H 07/28/18 04:20 INR 1.67 (0.5-1.4) H 07/28/18 04:20 PTT (Actin FS) 43.0 SECONDS (26.0-38.0) H 07/20/18 08:08 Specimen Source Arterial 07/23/18 17:00 Sample Site LB 07/23/18 17:00 pH 7.44 (7.35-7.45) 07/23/18 17:00 pCO2 44.0 mmHg (35.0-45.0) 07/23/18 17:00 pO2 86.0 mmHg (80.0-100.0) 07/23/18 17:00 HCO3 28.9 mEq/L (20.0-26.0) H 07/23/18 17:00 Base Excess 5.1 mEq/L (-3.0-3.0) H 07/23/18 17:00 O2 Saturation 97.0 % (92.0-100.0) 07/23/18 17:00 [place] Test NA 07/23/18 17:00 Vent Rate NA 07/23/18 17:00 Inspired O2 40 07/23/18 17:00 Tidal Volume NA 07/23/18 17:00 PEEP NA 07/23/18 17:00 Pressure (ins/psv/peep) NA 07/23/18 17:00 Critical Value E.QUINTEROS 07/23/18 17:00 Sodium 137 mEq/L (136-145) 07/28/18 04:20 Potassium 4.0 mEq/L (3.5-5.1) 07/28/18 04:20 Chloride 107 mEq/L (98-107) 07/28/18 04:20 Carbon Dioxide 25.8 mEq/L (21.0-31.0) 07/28/18 04:20 Anion Gap 8.2 (7.0-16.0) 07/28/18 04:20 BUN 12 mg/dL (7-25) 07/28/18 04:20 Creatinine 2.3 mg/dL (0.6-1.2) H 07/28/18 04:20 Est GFR ( Amer) 28.9 ml/min (>90) 07/28/18 04:20 Est GFR (Non-Af Amer) 23.9 ml/min 07/28/18 04:20 BUN/Creatinine Ratio 5.2 07/28/18 04:20 Glucose 222 mg/dL (70-105) H 07/28/18 04:20 POC Glucose 238 MG/DL (70 - 105) H 07/28/18 11:48 Whole Bld Lactic Acid 1.29 mmol/L (0.60-1.99) 07/12/18 20:50 Calcium 8.5 mg/dL (8.6-10.3) L 07/28/18 04:20 Magnesium 1.6 mg/dL (1.9-2.7) L 07/21/18 05:00 Total Bilirubin 0.3 mg/dL (0.3-1.0) 07/18/18 05:20 AST 18 U/L (13-39) 07/18/18 05:20 ALT 7 U/L (7-52) 07/18/18 05:20 Alkaline Phosphatase 80 U/L (34-104) 07/18/18 05:20 Creatine Kinase 20 U/L (30-223) L 07/12/18 20:50 Troponin I 0.49 ng/mL (0.01-0.05) H* 07/13/18 15:20 B-Natriuretic Peptide 515.0 pg/mL (5.0-100.0) H 07/13/18 04:00 Total Protein 4.0 gm/dL (6.0-8.3) L 07/18/18 05:20 Albumin < 1.5 gm/dL (3.7-5.3) L 07/18/18 05:20 Globulin 2.5 gm/dL 07/18/18 05:20 Albumin/Globulin Ratio 0.6 (1.0-1.8) L 07/18/18 05:20 Triglycerides 53 mg/dL (<150) 07/13/18 04:00 Cholesterol 41 mg/dL (<200) 07/13/18 04:00 LDL Cholesterol Direct 11 mg/dL (75-193) L 07/13/18 04:00 HDL Cholesterol 24 mg/dL (23-92) 07/13/18 04:00 TSH 1.21 uIU/ml (0.34-5.60) 07/13/18 04:00 Urine Source [place] 07/12/18 20:50 Urine Color YELLOW 07/12/18 20:50 Urine Clarity CLOUDY (CLEAR) H 07/12/18 20:50 Urine pH 8.5 (4.6 - 8.0) 07/12/18 20:50 Ur Specific [place] 1.015 (1.005-1.030) 07/12/18 20:50 Urine Protein 100 mg/dL (NEGATIVE) H 07/12/18 20:50 Urine Glucose (UA) NEGATIVE mg/dL (NEGATIVE) 07/12/18 20:50 Urine Ketones NEGATIVE mg/dL (NEGATIVE) 07/12/18 20:50 Urine Blood TRACE (NEGATIVE) 07/12/18 20:50 Urine Nitrate NEGATIVE (NEGATIVE) 07/12/18 20:50 Urine Bilirubin NEGATIVE (NEGATIVE) 07/12/18 20:50 Urine Urobilinogen 0.2 E.U./dL (0.2 - 1.0) 07/12/18 20:50 Ur Leukocyte Esterase LARGE (NEGATIVE) H 07/12/18 20:50 Urine RBC 2-5 /hpf (0-5) 07/12/18 20:50 Urine WBC >100 /hpf (0-5) H 07/12/18 20:50 Ur Epithelial Cells MODERATE /lpf (FEW) 07/12/18 20:50 Urine Bacteria MANY /hpf (NONE SEEN) H 07/12/18 20:50 Amikacin Peak 35.4 ug/mL (20.0-30.0) H 07/25/18 23:55 Amikacin Trough 6.9 ug/mL (1.0-8.0) 07/23/18 18:00 Random Amikacin 14.8 ug/ml (1.0-30.0) 07/25/18 17:00 Random Vancomycin 25.5 ug/mL (5.0-40.0) 07/24/18 05:50 Crossmatch See Detail 07/28/18 07:30 - Physical Exam Vitals and I&O: Vital Signs Temp 97.2 F 07/28/18 08:00 Pulse 104 07/28/18 12:28 Resp 12 07/28/18 12:28 BP 92/31 07/28/18 12:00 Pulse Ox 100 07/28/18 12:28 Intake & Output 07/27/18 07/28/18 07/28/18 18:59 06:59 18:59 Intake Total 1718 914 0425 Output Total 3020 155 Balance -1970 100 905 Weight (lbs) 242 lb 239 lb Intake: Intake, IV Amount 100 100 100 Tigecycline 50 mg In 100 100 100 Sodium Chloride 0.9% 100 ml @ 100 mls/hr IV Q12HR [facility] Rx#:[id number] Oral 950 960 Output: Drainage 10 30 Sacrum 10 30 Urine 10 50 Stool 400 75 Hemodialysis 2600 Other: Stool Characteristics Soft Soft Soft Brown Brown Brown Green Green Green Weight Source Bedscale Bedscale Active Medications: Current Medications Acetaminophen (Tylenol) 650 mg PO Q6H PRN PRN Reason: Pain or Fever >101 Stop: 09/11/18 15:14 Albuterol/Ipratropium (Duoneb Neb) 3 ml HHN Q4HRT PRN PRN Reason: Shortness of Breath or Wheeze Stop: 09/11/18 15:14 Albuterol/Ipratropium (Duoneb Neb) 3 ml HHN Q6HRT [facility] Stop: 09/21/18 18:59 Last Admin: 07/28/18 12:27 Dose: 3 ml Ascorbic Acid (Vitamin C) 500 mg PO DAILY [facility] Stop: 09/12/18 08:59 Last Admin: 07/28/18 08:47 Dose: 500 mg Atorvastatin Calcium (Lipitor) 20 mg PO HS [facility] Stop: 09/11/18 20:59 Last Admin: 07/27/18 21:28 Dose: 20 mg [place] Oil/[place] Balsam/Trypsin (Venelex) 1 appl TP DAILY [facility] Stop: 09/13/18 08:59 Last Admin: 07/27/18 16:31 Dose: 1 appl Dextrose (Glutose 40%) 18.75 gm PO PRN PRN PRN Reason: Blood Glucose less than 70 Stop: 09/11/18 04:10 Docusate Sodium (Colace) 100 mg PO BID [facility] Stop: 09/11/18 16:59 Last Admin: 07/28/18 08:47 Dose: 100 mg Famotidine (Pepcid) 20 mg PO DAILY [facility] Stop: 09/12/18 08:59 Last Admin: 07/28/18 08:46 Dose: 20 mg Folic Acid (Folate) 1 mg PO DAILY [facility] Stop: 09/12/18 08:59 Last Admin: 07/28/18 08:46 Dose: 1 mg Glucagon (Glucagen) 1 mg IM PRN PRN PRN Reason: Blood Glucose less than 70 Stop: 09/11/18 04:10 Heparin Sodium (Porcine) (Heparin) 5,000 units SUBQ Q12HR [facility] Stop: 09/25/18 20:59 Hydromorphone HCl (Dilaudid) 1 mg IVP Q4HR PRN PRN Reason: Pain (Severe) Stop: 09/20/18 20:12 Last Admin: 07/28/18 05:11 Dose: 1 mg Tigecycline 50 mg/ Sodium (Chloride) 100 mls @ 100 mls/hr IV Q12HR [facility] Stop: 09/17/18 19:44 Last Infusion: 07/28/18 09:50 Dose: Infused Norepinephrine Bitartrate 4 mg (/ Dextrose) 254 mls @ 38.1 mls/hr IV TITR PRN; Protocol PRN Reason: BP MAINTENANCE (PER PROTOCOL) Stop: 09/21/18 14:18 Last Titration: 07/24/18 04:10 Dose: 0 mcg/min, 0 mls/hr Insulin Aspart (Novolog Insulin Sliding Scale) 0 units SUBQ Q6HR [facility]; Protocol Stop: 09/11/18 05:59 Last Admin: 07/28/18 13:03 Dose: 4 units Lactobacillus Rhamnosus (Culturelle 15b) 1 each PO DAILY [facility] Stop: 09/13/18 13:59 Last Admin: 07/28/18 08:46 Dose: 1 each Levothyroxine Sodium (Synthroid) 0.025 mg PO QDAC [facility] Stop: 09/12/18 07:29 Last Admin: 07/28/18 06:52 Dose: 0.025 mg Miscellaneous (Probiotic Screen) 1 ea PRN PRN PRN Reason: PROTOCOL Stop: 09/13/18 11:44 Oxcarbazepine (Trileptal) 600 mg PO BID VIKTORIA Stop: 09/11/18 16:59 Last Admin: 07/28/18 08:47 Dose: 600 mg Risperidone (Risperdal) 2 mg PO HS VIKTORIA Stop: 09/11/18 20:59 Last Admin: 07/27/18 21:28 Dose: 2 mg Senna (Senna) 17.2 mg PO BID VIKTORIA Stop: 09/11/18 16:59 Last Admin: 07/28/18 08:46 Dose: 17.2 mg Sevelamer Carbonate (Renvela) 800 mg PO TIDWM [facility] Stop: 09/11/18 16:59 Last Admin: 07/28/18 13:04 Dose: 800 mg Vitamin B Complex/Vit C/Folic Acid (Vitamin B Complex W/Vitamin C) 1 tab PO DAILY VIKTORIA Stop: 09/12/18 08:59 Last Admin: 07/28/18 08:47 Dose: 1 tab Zinc Sulfate (Zinc Sulfate) 220 mg PO DAILY VIKTORIA Stop: 09/12/18 08:59 Last Admin: 07/28/18 08:46 Dose: 220 mg General: weak, alert HEENT: NC/AT, PERRLA Neck: Supple Lungs: CTAB Abdomen: soft, non-tender, non-distended Extremities: other (sacrum ulcer) Neurological: alert - Procedures Procedures: Procedures Procedure Code Date BYPASS DESCENDING COLON TO CUTANEOUS, OPEN APPROACH [id number] 07/12/18 EXCISION OF L LOW LEG SUBCU/FASCIA, OPEN APPROACH [id number] 07/12/18 EXCISION OF SACRUM, OPEN APPROACH [id number] 07/12/18 EXCISION OF SIGMOID COLON, OPEN APPROACH [id number] 07/12/18 RESPIRATORY VENTILATION, LESS THAN 24 CONSECUTIVE HOURS [id number] 07/12/18 Internal Medicine Assmt/Plan - Assessment Assessment: Sacral wound stage 4 acute uti dm 1 anemia cad chf anasarca ckd stage 5 on hd - Plan Plan: continue ivabx as per id wound care to continue hd as per renal continue current plan of care Nutritional Asmnt/Malnutr-PDOC - Dietary Evaluation Malnutrition Findings (Please click <Entered> for more info): Nutritional Asmnt/Malnutrition Start: 07/13/18 13: 54 Text: Status: Complete Freq: Protocol: Document 07/13/18 13:56 MMULN (Rec: 07/13/18 14:10 [email or web address] NASH- [id number]) Nutritional Asmnt/Malnutrition Patient General Information Nutritional Screening Consult Diagnosis ESRD, anasarca Pertinent Medical Hx/Surgical Hx Seizure, hep C, diabetes, CAD, HTN, CVA, quadreplegia, Parkinsons, ESRD Subjective Information Consult received for "Diabetic ". Per nursing notes, patient receives hemodialysis MWF and patient is non-verbal. Patient with 2+ pitting edema. Current Diet Order/ Nutrition Support Renal diet Patient / S.O Not Indicated Pertinent Medications D50W, D5-0.45NS @50 ml/hr, Glucagon, Novolog Pertinent Labs (07/13) Na 134, BUN 48, Cr 2.9, glucose 41-137, Ca 8.2, BNP 515, albumin 2 Nutritional Hx/Data Height 5 ft 8 in Height (Calculated Centimeters) 172.7 Current Weight (lbs) 251 lb Weight (Calculated Kilograms) 113.9 Weight (Calculated Grams) 988996.7 [place] Body Weight 140 % [place] Body Weight 179 Body Mass Index (BMI) 38.1 Recent Weight Change No Weight Status Morbidly Obese GI Symptoms GI Symptoms None Last BM 07/13 x 1 Difficult in: Chewing Food Allergies No Cultural/Ethnic/Sabianist Belief none indicated Usual diet at home unknown Skin Integrity/Comment: Arian 10, ulceration on sacrum, left lower leg, abrasion on L heel, scar on right leg. Current %PO Good (75-100%) Estimated Nutritional Goals BEE in Kcals: Adj wt of IBW Calories/Kcals/Kg 27-32 kcal/kg (using 76.2kg ADj wt) Kcals Calculated ~6866-5461 kcal/day Protein g/k.2-1.5 gm/kg using Adj wt Protein Calculated ~90-115 gm/day Fluid: ml Per MD due to HD Nutritional Problem 2. Problem Problem Altered nutrition related lab values related to Etiology episodes of hypoglycemia, electrolyte imbalance aeb Signs/Symptoms: Na 134, glucose 41-137, Ca 8.2 1. Problem Problem Increased nutrient needs related to Etiology hypermetabolic state, impaired skin integrity aeb Signs/Symptoms: Pt on Hemodialysis and with multiple ulcerations Intervention/Recommendation Comments 1. Continue Renal diet as tolerated by patient. No need for DM restriction at this time due to hypoglycemia. 2. Consider fluid restriction due to HD, hyponatremia and edema. 3. Consider adding Prosource 1 packet with each meal for an additional 45gm protein. Expected Outcomes/Goals Expected Outcomes/Goals Oral intake >75% of meals, weight stable or trend toward ideal body weight, nutrition related labs WNL
--- NOTE | 2018-07-28 14:50 | General Progress Note ---
Subjective - Review of Systems Service Date: 07/28/18 Subjective: alert, comfortable, on puree diet Objective - Results Result Diagrams: 07/28/18 07:30 07/28/18 04:20 Recent Labs: Laboratory Last Values WBC 5.6 Th/cmm (4.8-10.8) 07/28/18 04:20 RBC 2.61 Mil/cmm (3.80-5.10) L 07/28/18 04:20 Hgb 8.2 gm/dL (12-16) L 07/28/18 07:30 Hct 24.6 % (41.0-60) L 07/28/18 07:30 MCV 87.3 fl (81-100) 07/28/18 04:20 MCH 28.5 pg (27.0-31.0) 07/28/18 04:20 MCHC Differential 32.6 pg (28.0-36.0) 07/28/18 04:20 RDW 16.8 % (11.5-20.0) 07/28/18 04:20 Plt Count 113 Th/cmm (150-400) L 07/28/18 04:20 MPV 8.0 fl 07/28/18 04:20 Add Manual Diff YES 07/28/18 04:20 Neutrophils % FLIGHT SUPERINTENDENT 07/28/18 04:20 Band Neutrophils % 0 % (0-10) 07/28/18 04:20 Lymphocytes % FLIGHT SUPERINTENDENT 07/28/18 04:20 Monocytes % FLIGHT SUPERINTENDENT 07/28/18 04:20 Eosinophils % FLIGHT SUPERINTENDENT 07/28/18 04:20 Basophils % 0.3 % (0.0-2.0) 07/27/18 04:10 Neutrophils (Manual) 60 % (40-80) 07/28/18 04:20 Lymphocytes 30 % (20-50) 07/28/18 04:20 Monocytes 10 % (2-10) 07/28/18 04:20 Eosinophils 0 % (0-5) 07/28/18 04:20 Basophils 0 % (0-3) 07/28/18 04:20 Platelet Estimate DECREASED PLATELETS (NORMAL) 07/28/18 04:20 PT 17.0 SECONDS (9.5-11.5) H 07/28/18 04:20 INR 1.67 (0.5-1.4) H 07/28/18 04:20 PTT (Actin FS) 43.0 SECONDS (26.0-38.0) H 07/20/18 08:08 Specimen Source Arterial 07/23/18 17:00 Sample Site LB 07/23/18 17:00 pH 7.44 (7.35-7.45) 07/23/18 17:00 pCO2 44.0 mmHg (35.0-45.0) 07/23/18 17:00 pO2 86.0 mmHg (80.0-100.0) 07/23/18 17:00 HCO3 28.9 mEq/L (20.0-26.0) H 07/23/18 17:00 Base Excess 5.1 mEq/L (-3.0-3.0) H 07/23/18 17:00 O2 Saturation 97.0 % (92.0-100.0) 07/23/18 17:00 [place] Test NA 07/23/18 17:00 Vent Rate NA 07/23/18 17:00 Inspired O2 40 07/23/18 17:00 Tidal Volume NA 07/23/18 17:00 PEEP NA 07/23/18 17:00 Pressure (ins/psv/peep) NA 07/23/18 17:00 Critical Value E.QUINTEROS 07/23/18 17:00 Sodium 137 mEq/L (136-145) 07/28/18 04:20 Potassium 4.0 mEq/L (3.5-5.1) 07/28/18 04:20 Chloride 107 mEq/L (98-107) 07/28/18 04:20 Carbon Dioxide 25.8 mEq/L (21.0-31.0) 07/28/18 04:20 Anion Gap 8.2 (7.0-16.0) 07/28/18 04:20 BUN 12 mg/dL (7-25) 07/28/18 04:20 Creatinine 2.3 mg/dL (0.6-1.2) H 07/28/18 04:20 Est GFR ( Amer) 28.9 ml/min (>90) 07/28/18 04:20 Est GFR (Non-Af Amer) 23.9 ml/min 07/28/18 04:20 BUN/Creatinine Ratio 5.2 07/28/18 04:20 Glucose 222 mg/dL (70-105) H 07/28/18 04:20 POC Glucose 238 MG/DL (70 - 105) H 07/28/18 11:48 Whole Bld Lactic Acid 1.29 mmol/L (0.60-1.99) 07/12/18 20:50 Calcium 8.5 mg/dL (8.6-10.3) L 07/28/18 04:20 Magnesium 1.6 mg/dL (1.9-2.7) L 07/21/18 05:00 Total Bilirubin 0.3 mg/dL (0.3-1.0) 07/18/18 05:20 AST 18 U/L (13-39) 07/18/18 05:20 ALT 7 U/L (7-52) 07/18/18 05:20 Alkaline Phosphatase 80 U/L (34-104) 07/18/18 05:20 Creatine Kinase 20 U/L (30-223) L 07/12/18 20:50 Troponin I 0.49 ng/mL (0.01-0.05) H* 07/13/18 15:20 B-Natriuretic Peptide 515.0 pg/mL (5.0-100.0) H 07/13/18 04:00 Total Protein 4.0 gm/dL (6.0-8.3) L 07/18/18 05:20 Albumin < 1.5 gm/dL (3.7-5.3) L 07/18/18 05:20 Globulin 2.5 gm/dL 07/18/18 05:20 Albumin/Globulin Ratio 0.6 (1.0-1.8) L 07/18/18 05:20 Triglycerides 53 mg/dL (<150) 07/13/18 04:00 Cholesterol 41 mg/dL (<200) 07/13/18 04:00 LDL Cholesterol Direct 11 mg/dL (75-193) L 07/13/18 04:00 HDL Cholesterol 24 mg/dL (23-92) 07/13/18 04:00 TSH 1.21 uIU/ml (0.34-5.60) 07/13/18 04:00 Urine Source [place] 07/12/18 20:50 Urine Color YELLOW 07/12/18 20:50 Urine Clarity CLOUDY (CLEAR) H 07/12/18 20:50 Urine pH 8.5 (4.6 - 8.0) 07/12/18 20:50 Ur Specific [place] 1.015 (1.005-1.030) 07/12/18 20:50 Urine Protein 100 mg/dL (NEGATIVE) H 07/12/18 20:50 Urine Glucose (UA) NEGATIVE mg/dL (NEGATIVE) 07/12/18 20:50 Urine Ketones NEGATIVE mg/dL (NEGATIVE) 07/12/18 20:50 Urine Blood TRACE (NEGATIVE) 07/12/18 20:50 Urine Nitrate NEGATIVE (NEGATIVE) 07/12/18 20:50 Urine Bilirubin NEGATIVE (NEGATIVE) 07/12/18 20:50 Urine Urobilinogen 0.2 E.U./dL (0.2 - 1.0) 07/12/18 20:50 Ur Leukocyte Esterase LARGE (NEGATIVE) H 07/12/18 20:50 Urine RBC 2-5 /hpf (0-5) 07/12/18 20:50 Urine WBC >100 /hpf (0-5) H 07/12/18 20:50 Ur Epithelial Cells MODERATE /lpf (FEW) 07/12/18 20:50 Urine Bacteria MANY /hpf (NONE SEEN) H 07/12/18 20:50 Amikacin Peak 35.4 ug/mL (20.0-30.0) H 07/25/18 23:55 Amikacin Trough 6.9 ug/mL (1.0-8.0) 07/23/18 18:00 Random Amikacin 14.8 ug/ml (1.0-30.0) 07/25/18 17:00 Random Vancomycin 25.5 ug/mL (5.0-40.0) 07/24/18 05:50 Crossmatch See Detail 07/28/18 07:30 - Physical Exam Vitals and I&O: Vital Signs Temp 97.2 F 07/28/18 08:00 Pulse 104 07/28/18 12:28 Resp 12 07/28/18 12:28 BP 92/31 07/28/18 12:00 Pulse Ox 100 07/28/18 12:28 Intake & Output 07/27/18 07/28/18 07/28/18 18:59 06:59 18:59 Intake Total 8940 868 9223 Output Total 3020 155 Balance -1970 100 905 Weight (lbs) 109.769 kg 108.409 kg Intake: Intake, IV Amount 100 100 100 Tigecycline 50 mg In 100 100 100 Sodium Chloride 0.9% 100 ml @ 100 mls/hr IV Q12HR [facility] Rx#:[id number] Oral 950 960 Output: Drainage 10 30 Sacrum 10 30 Urine 10 50 Stool 400 75 Hemodialysis 2600 Other: Stool Characteristics Soft Soft Soft Brown Brown Brown Green Green Green Weight Source Bedscale Bedscale Active Medications: Current Medications Acetaminophen (Tylenol) 650 mg PO Q6H PRN PRN Reason: Pain or Fever >101 Stop: 09/11/18 15:14 Albuterol/Ipratropium (Duoneb Neb) 3 ml HHN Q4HRT PRN PRN Reason: Shortness of Breath or Wheeze Stop: 09/11/18 15:14 Albuterol/Ipratropium (Duoneb Neb) [address] [facility] Stop: 09/21/18 18:59 Last Admin: 07/28/18 12:27 Dose: 3 ml Ascorbic Acid (Vitamin C) 500 mg PO DAILY [facility] Stop: 09/12/18 08:59 Last Admin: 07/28/18 08:47 Dose: 500 mg Atorvastatin Calcium (Lipitor) 20 mg PO HS [facility] Stop: 09/11/18 20:59 Last Admin: 07/27/18 21:28 Dose: 20 mg [place] Oil/[place] Balsam/Trypsin (Venelex) [address] [facility] Stop: 09/13/18 08:59 Last Admin: 07/27/18 16:31 Dose: 1 appl Dextrose (Glutose 40%) 18.75 gm PO PRN PRN PRN Reason: Blood Glucose less than 70 Stop: 09/11/18 04:10 Docusate Sodium (Colace) [address] [facility] Stop: 09/11/18 16:59 Last Admin: 07/28/18 08:47 Dose: 100 mg Famotidine (Pepcid) 20 mg PO DAILY [facility] Stop: 09/12/18 08:59 Last Admin: 07/28/18 08:46 Dose: 20 mg Folic Acid (Folate) [address] [facility] Stop: 09/12/18 08:59 Last Admin: 07/28/18 08:46 Dose: 1 mg Glucagon (Glucagen) 1 mg IM PRN PRN PRN Reason: Blood Glucose less than 70 Stop: 09/11/18 04:10 Heparin Sodium (Porcine) (Heparin) 5,000 units SUBQ Q12HR [facility] Stop: 09/26/18 20:59 Hydromorphone HCl (Dilaudid) 1 mg IVP Q4HR PRN PRN Reason: Pain (Severe) Stop: 09/20/18 20:12 Last Admin: 07/28/18 05:11 Dose: 1 mg Tigecycline 50 mg/ Sodium (Chloride) 100 mls @ 100 mls/hr IV Q12HR [facility] Stop: 09/17/18 19:44 Last Infusion: 07/28/18 09:50 Dose: Infused Norepinephrine Bitartrate 4 mg (/ Dextrose) 254 mls @ 38.1 mls/hr IV TITR PRN; Protocol PRN Reason: BP MAINTENANCE (PER PROTOCOL) Stop: 09/21/18 14:18 Last Titration: 07/24/18 04:10 Dose: 0 mcg/min, 0 mls/hr Insulin Aspart (Novolog Insulin Sliding Scale) 0 units SUBQ Q6HR [facility]; Protocol Stop: 09/11/18 05:59 Last Admin: 07/28/18 13:03 Dose: 4 units Lactobacillus Rhamnosus (Culturelle 15b) 1 each PO DAILY [facility] Stop: 09/13/18 13:59 Last Admin: 07/28/18 08:46 Dose: 1 each Levothyroxine Sodium (Synthroid) 0.025 mg PO QDAC [facility] Stop: 09/12/18 07:29 Last Admin: 07/28/18 06:52 Dose: 0.025 mg Miscellaneous (Probiotic Screen) 1 ea PRN PRN PRN Reason: PROTOCOL Stop: 09/13/18 11:44 Oxcarbazepine (Trileptal) 600 mg PO BID [facility] Stop: 09/11/18 16:59 Last Admin: 07/28/18 08:47 Dose: 600 mg Risperidone (Risperdal) 2 mg PO HS [facility] Stop: 09/11/18 20:59 Last Admin: 07/27/18 21:28 Dose: 2 mg Senna (Senna) 17.2 mg PO BID [facility] Stop: 09/11/18 16:59 Last Admin: 07/28/18 08:46 Dose: 17.2 mg Sevelamer Carbonate (Renvela) 800 mg PO TIDWM [facility] Stop: 09/11/18 16:59 Last Admin: 07/28/18 13:04 Dose: 800 mg Vitamin B Complex/Vit C/Folic Acid (Vitamin B Complex W/Vitamin C) 1 tab PO DAILY [facility] Stop: 09/12/18 08:59 Last Admin: 07/28/18 08:47 Dose: 1 tab Zinc Sulfate (Zinc Sulfate) 220 mg PO DAILY [facility] Stop: 09/12/18 08:59 Last Admin: 07/28/18 08:46 Dose: 220 mg General: Alert, Mild distress HEENT: Atraumatic, EOMI Neck: Supple, +2 carotid pulse wo bruit Cardiovascular: Regular rate, Normal S1, Normal S2 Lungs: Other (scattered rhonchi) Abdomen: Bowel sounds, Soft Extremities: Edema ((+) 2-3 edema), Other ((+) 2 bipedal edema) Neurological: Sensation intact Skin: no Rash Psych/Mental Status: Mood NL - Procedures Procedures: Procedures Procedure Code Date BYPASS DESCENDING COLON TO CUTANEOUS, OPEN APPROACH [id number] 07/12/18 EXCISION OF L LOW LEG SUBCU/FASCIA, OPEN APPROACH [id number] 07/12/18 EXCISION OF SACRUM, OPEN APPROACH [id number] 07/12/18 EXCISION OF SIGMOID COLON, OPEN APPROACH [id number] 07/12/18 RESPIRATORY VENTILATION, LESS THAN 24 CONSECUTIVE HOURS [id number] 07/12/18 Assessment/Plan - Problem List Patient Problems: All Active Problems Anasarca (Acute) R60.1 Anemia (Acute) D64.9 CAD (coronary artery disease) (Acute) I25.10 CHF (congestive heart failure) (Acute) I50.9 CKD (chronic kidney disease) (Acute) N18.9 HTN (hypertension) (Acute) I10 UTI (urinary tract infection) (Acute) sacral stage 4 wound (Acute) - Assessment Assessment: ESRD on HD Hypothyroid Parkinson Ds. Fnc Quad Hep B,C GERD Left Calf ulcer Sacral Decub ulcer stage 4, w/ wound vacuum Cholelithiasis B/L HAP w/ effusions Peripheral edema Left SFV DVT S/P Diverting Colostomy - Plan Plan: Lab - Result Diagrams 07/14/18 05:00 07/14/18 05:00 Current Medications Acetaminophen (Tylenol) 650 mg PO Q6H PRN PRN Reason: Pain or Fever >101 Stop: 09/11/18 15:14 Acetaminophen/Hydrocodone Bitart ([place] 5mg/325mg) 1 tab PO Q6H PRN PRN Reason: Pain (Severe) Stop: 09/11/18 15:14 Albuterol/Ipratropium (Duoneb Neb) 3 ml HHN Q4HRT PRN PRN Reason: Shortness of Breath or Wheeze Stop: 09/11/18 15:14 Ascorbic Acid (Vitamin C) [address] [facility] Stop: 09/12/18 08:59 Last Admin: 07/14/18 08:27 Dose: 500 mg Atorvastatin Calcium (Lipitor) [address] [facility] Stop: 09/11/18 20:59 Last Admin: 07/13/18 21:05 Dose: 20 mg Dextrose (D50w) 50 ml IVP PRN PRN PRN Reason: Blood Glucose less than 70 Stop: 09/11/18 04:10 Dextrose (Glutose 40%) 18.75 gm PO PRN PRN PRN Reason: Blood Glucose less than 70 Stop: 09/11/18 04:10 Docusate Sodium (Colace) [address] [facility] Stop: 09/11/18 16:59 Last Admin: 07/14/18 08:27 Dose: 100 mg Famotidine (Pepcid) [address] [facility] Stop: 09/12/18 08:59 Last Admin: 07/14/18 08:27 Dose: 20 mg Folic Acid (Folate) [address] [facility] Stop: 09/12/18 08:59 Last Admin: 07/14/18 08:27 Dose: 1 mg Glucagon (Glucagen) 1 mg IM PRN PRN PRN Reason: Blood Glucose less than 70 Stop: 09/11/18 04:10 Piperacillin Sod/Tazobactam (Sod 2.25 gm/ Sodium Chloride) 50 mls @ 100 mls/hr IV Q6H [facility] Stop: 09/11/18 05:59 Last Admin: 07/14/18 06:05 Dose: Not Given Dextrose/Sodium Chloride (D5-0.45ns) 1,000 mls @ 50 mls/hr IV .Q20H [facility] Stop: 09/11/18 02:29 Last Admin: 07/13/18 04:03 Dose: 50 mls/hr Insulin Aspart (Novolog Insulin Sliding Scale) 0 units SUBQ Q6HR [facility]; Protocol Stop: 09/11/18 05:59 Last Admin: 07/14/18 06:05 Dose: Not Given Levothyroxine Sodium (Synthroid) 0.025 mg PO QDAC [facility] Stop: 09/12/18 07:29 Last Admin: 07/14/18 06:35 Dose: 0.025 mg Miscellaneous (Vancomycin Iv Per Pharmacy) 1 ea MC PRN PRN PRN Reason: PROTOCOL Stop: 09/10/18 23:40 Oxcarbazepine (Trileptal) 600 mg PO BID [facility] Stop: 09/11/18 16:59 Last Admin: 07/14/18 08:27 Dose: 600 mg Risperidone (Risperdal) 2 mg PO HS [facility] Stop: 09/11/18 20:59 Last Admin: 07/13/18 21:05 Dose: 2 mg Senna (Senna) 17.2 mg PO BID [facility] Stop: 09/11/18 16:59 Last Admin: 07/14/18 08:27 Dose: 17.2 mg Sevelamer Carbonate (Renvela) 800 mg PO TIDWM [facility] Stop: 09/11/18 16:59 Last Admin: 07/14/18 08:27 Dose: 800 mg Temazepam (Restoril) 15 mg PO HS PRN; Protocol PRN Reason: Insomnia Stop: 09/11/18 15:14 Vitamin B Complex/Vit C/Folic Acid (Vitamin B Complex W/Vitamin C) 1 tab PO DAILY [facility] Stop: 09/12/18 08:59 Last Admin: 07/14/18 08:27 Dose: 1 tab Zinc Sulfate (Zinc Sulfate) 220 mg PO DAILY [facility] Stop: 09/12/18 08:59 Last Admin: 07/14/18 08:27 Dose: 220 m Lab - Result Diagrams 07/28/18 07:30 07/28/18 04:20 continue wound care Pt. had diverting colostomy CXR still w/ persistent B/L effusion L>R schedule for HD today due to persistent effusions & peripheral edema started on Puree diet for CXR in am Nutritional Asmnt/Malnutr-PDOC - Dietary Evaluation Malnutrition Findings (Please click <Entered> for more info): Nutritional Asmnt/Malnutrition Start: 07/13/18 13: 54 Text: Status: Complete Freq: Protocol: Document 07/13/18 13:56 ALDAIR (Rec: 07/13/18 14:10 ALDAIR NASH- [id number]) Nutritional Asmnt/Malnutrition Patient General Information Nutritional Screening Consult Diagnosis ESRD, anasarca Pertinent Medical Hx/Surgical Hx Seizure, hep C, diabetes, CAD, HTN, CVA, quadreplegia, Parkinsons, ESRD Subjective Information Consult received for "Diabetic ". Per nursing notes, patient receives hemodialysis MWF and patient is non-verbal. Patient with 2+ pitting edema. Current Diet Order/ Nutrition Support Renal diet Patient / S.O Not Indicated Pertinent Medications D50W, D5-0.45NS @50 ml/hr, Glucagon, Novolog Pertinent Labs (07/13) Na 134, BUN 48, Cr 2.9, glucose 41-137, Ca 8.2, BNP 515, albumin 2 Nutritional Hx/Data Height 1.73 m Height (Calculated Centimeters) 172.7 Current Weight (lbs) 113.852 kg Weight (Calculated Kilograms) 113.9 Weight (Calculated Grams) 987828.7 [place] Body Weight 140 % [place] Body Weight 179 Body Mass Index (BMI) 38.1 Recent Weight Change No Weight Status Morbidly Obese GI Symptoms GI Symptoms None Last BM 07/13 x 1 Difficult in: Chewing Food Allergies No Cultural/Ethnic/Alevism Belief none indicated Usual diet at home unknown Skin Integrity/Comment: [place] 10, ulceration on sacrum, left lower leg, abrasion on L heel, scar on right leg. Current %PO Good (75-100%) Estimated Nutritional Goals BEE in Kcals: Adj wt of IBW Calories/Kcals/Kg 27-32 kcal/kg (using 76.2kg ADj wt) Kcals Calculated ~2318-6732 kcal/day Protein g/k.2-1.5 gm/kg using Adj wt Protein Calculated ~90-115 gm/day Fluid: ml Per MD due to HD Nutritional Problem 2. Problem Problem Altered nutrition related lab values related to Etiology episodes of hypoglycemia, electrolyte imbalance aeb Signs/Symptoms: Na 134, glucose 41-137, Ca 8.2 1. Problem Problem Increased nutrient needs related to Etiology hypermetabolic state, impaired skin integrity aeb Signs/Symptoms: Pt on Hemodialysis and with multiple ulcerations Intervention/Recommendation Comments 1. Continue Renal diet as tolerated by patient. No need for DM restriction at this time due to hypoglycemia. 2. Consider fluid restriction due to HD, hyponatremia and edema. 3. Consider adding Prosource 1 packet with each meal for an additional 45gm protein. Expected Outcomes/Goals Expected Outcomes/Goals Oral intake >75% of meals, weight stable or trend toward ideal body weight, nutrition related labs WNL
[2018-07-28] MEDS: Venelex 60gm Tube TP SCH (16:37)
[2018-07-28] MEDS: Atorvastatin Calcium 10 MG TAB PO SCH (21:00)
[2018-07-29] MEDS: INSULIN ASPART SLIDING SCALE 100 UNITS/ML UNIT SUBQ SCH ×5 (00:01→23:47)
[2018-07-29] MEDS: Albuterol/Ipratropium Neb 3 ML AERS HHN SCH ×4 (01:14→18:37)
[2018-07-29 05:13] LABS: % BASOPHILS 0.2 % (0.0-2.0); % EOSINOPHILS 0.4 % (0.0-5.0); % MONOCYTES 12.8 % (2.0-10.0); % NEUTROPHILS 51.6 % (40.0-80.0); HEMATOCRIT 26.7 % (41.0-60); HEMOGLOBIN 8.7 gm/dL (12-16); LYMPHOCYTE ABSOLUTE 2.4 Th/cmm (1.5-3.0); MEAN CELL VOLUME 87.3 fl (81-100); MEAN CORPUSCULAR HEMOGLOBIN 28.6 pg (27.0-31.0); MEAN CORPUSCULAR HGB CONC 32.8 pg (28.0-36.0); MEAN PLATELET VOLUME 7.4 fl; MONOCYTE ABSOLUTE 0.9 Th/cmm (0.3-1.0); NEUTROPHILE ABSOLUTE 3.5 Th/cmm (1.8-8.0); PLATELET COUNT 135 Th/cmm (150-400); RED BLOOD COUNT 3.06 Mil/cmm (3.80-5.10); RED CELL DISTRIBUTION WIDTH 16.8 % (11.5-20.0); WHITE BLOOD COUNT 6.8 Th/cmm (4.8-10.8)
[2018-07-29 05:45] LABS: ANION GAP 9.8 (7.0-16.0); CALCIUM SERUM 8.8 mg/dL (8.6-10.3); CARBON DIOXIDE 24.7 mEq/L (21.0-31.0); GFR AFRICAN-AMERICAN 21.2 ml/min (>90); GFR NON AFRICAN-AMERICAN 17.6 ml/min; POTASSIUM SERUM 4.5 mEq/L (3.5-5.1)
[2018-07-29] MEDS: HYDROmorphone 1 mg/mL 1mL Syr IVP PRN (05:51)
[2018-07-29] MEDS: Lactobacillus Rhamnosus GG 15 Billion CFU CAP.SPRINK PO SCH (08:20)
[2018-07-29] MEDS: Docusate Sodium 100 mg/10 mL UD PO SCH ×2 (08:20→18:04)
[2018-07-29] MEDS: Levothyroxine 0.025 Mg Tab PO SCH (08:20)
[2018-07-29] MEDS: Vitamin B Complex w/Vitamin C Tab PO SCH (08:20)
[2018-07-29] MEDS: Venelex 60gm Tube TP SCH (08:21)
[2018-07-29 08:52] LABS: HEMOGLOBIN 7.4 gm/dL (12-16)
--- NOTE | 2018-07-29 13:32 | Infectious Disease Prog Note ---
Infectious Disease Subjective - Review of Systems Service Date: 07/29/18 Subjective: s/p Debridement of sacral wound and diverting colostomy Infectious Disease Objective - Results Result Diagrams: 07/31/18 09:45 07/31/18 09:45 Recent Labs: Laboratory Last Values WBC 6.8 Th/cmm (4.8-10.8) 07/29/18 05:00 RBC 3.06 Mil/cmm (3.80-5.10) L 07/29/18 05:00 Hgb 8.7 gm/dL (12-16) L 07/29/18 05:00 Hct 26.7 % (41.0-60) L 07/29/18 05:00 MCV 87.3 fl (81-100) 07/29/18 05:00 MCH 28.6 pg (27.0-31.0) 07/29/18 05:00 MCHC Differential 32.8 pg (28.0-36.0) 07/29/18 05:00 RDW 16.8 % (11.5-20.0) 07/29/18 05:00 Plt Count 135 Th/cmm (150-400) L 07/29/18 05:00 MPV 7.4 fl 07/29/18 05:00 Add Manual Diff YES 07/28/18 04:20 Neutrophils % 51.6 % (40.0-80.0) 07/29/18 05:00 Band Neutrophils % 0 % (0-10) 07/28/18 04:20 Lymphocytes % 35.0 % (20.0-50.0) 07/29/18 05:00 Monocytes % 12.8 % (2.0-10.0) H 07/29/18 05:00 Eosinophils % 0.4 % (0.0-5.0) 07/29/18 05:00 Basophils % 0.2 % (0.0-2.0) 07/29/18 05:00 Neutrophils (Manual) 60 % (40-80) 07/28/18 04:20 Lymphocytes 30 % (20-50) 07/28/18 04:20 Monocytes 10 % (2-10) 07/28/18 04:20 Eosinophils 0 % (0-5) 07/28/18 04:20 Basophils 0 % (0-3) 07/28/18 04:20 Platelet Estimate DECREASED PLATELETS (NORMAL) 07/28/18 04:20 PT 17.0 SECONDS (9.5-11.5) H 07/28/18 04:20 INR 1.67 (0.5-1.4) H 07/28/18 04:20 PTT (Actin FS) 43.0 SECONDS (26.0-38.0) H 07/20/18 08:08 Specimen Source Arterial 07/23/18 17:00 Sample Site LB 07/23/18 17:00 pH 7.44 (7.35-7.45) 07/23/18 17:00 pCO2 44.0 mmHg (35.0-45.0) 07/23/18 17:00 pO2 86.0 mmHg (80.0-100.0) 07/23/18 17:00 HCO3 28.9 mEq/L (20.0-26.0) H 07/23/18 17:00 Base Excess 5.1 mEq/L (-3.0-3.0) H 07/23/18 17:00 O2 Saturation 97.0 % (92.0-100.0) 07/23/18 17:00 [place] Test NA 07/23/18 17:00 Vent Rate NA 07/23/18 17:00 Inspired O2 40 07/23/18 17:00 Tidal Volume NA 07/23/18 17:00 PEEP NA 07/23/18 17:00 Pressure (ins/psv/peep) NA 07/23/18 17:00 Critical Value E.QUINTEROS 07/23/18 17:00 Sodium 132 mEq/L (136-145) L 07/29/18 05:00 Potassium 4.5 mEq/L (3.5-5.1) 07/29/18 05:00 Chloride 102 mEq/L (98-107) 07/29/18 05:00 Carbon Dioxide 24.7 mEq/L (21.0-31.0) 07/29/18 05:00 Anion Gap 9.8 (7.0-16.0) 07/29/18 05:00 BUN 17 mg/dL (7-25) 07/29/18 05:00 Creatinine 3.0 mg/dL (0.6-1.2) H 07/29/18 05:00 Est GFR ( Amer) 21.2 ml/min (>90) 07/29/18 05:00 Est GFR (Non-Af Amer) 17.6 ml/min 07/29/18 05:00 BUN/Creatinine Ratio 5.7 07/29/18 05:00 Glucose 192 mg/dL (70-105) H 07/29/18 05:00 POC Glucose 211 MG/DL (70 - 105) H 07/29/18 11:35 Whole Bld Lactic Acid 1.29 mmol/L (0.60-1.99) 07/12/18 20:50 Calcium 8.8 mg/dL (8.6-10.3) 07/29/18 05:00 Magnesium 1.6 mg/dL (1.9-2.7) L 07/21/18 05:00 Total Bilirubin 0.3 mg/dL (0.3-1.0) 07/18/18 05:20 AST 18 U/L (13-39) 07/18/18 05:20 ALT 7 U/L (7-52) 07/18/18 05:20 Alkaline Phosphatase 80 U/L (34-104) 07/18/18 05:20 Creatine Kinase 20 U/L (30-223) L 07/12/18 20:50 Troponin I 0.49 ng/mL (0.01-0.05) H* 07/13/18 15:20 B-Natriuretic Peptide 515.0 pg/mL (5.0-100.0) H 07/13/18 04:00 Total Protein 4.0 gm/dL (6.0-8.3) L 07/18/18 05:20 Albumin < 1.5 gm/dL (3.7-5.3) L 07/18/18 05:20 Globulin 2.5 gm/dL 07/18/18 05:20 Albumin/Globulin Ratio 0.6 (1.0-1.8) L 07/18/18 05:20 Triglycerides 53 mg/dL (<150) 07/13/18 04:00 Cholesterol 41 mg/dL (<200) 07/13/18 04:00 LDL Cholesterol Direct 11 mg/dL (75-193) L 07/13/18 04:00 HDL Cholesterol 24 mg/dL (23-92) 07/13/18 04:00 TSH 1.21 uIU/ml (0.34-5.60) 07/13/18 04:00 Urine Source [place] 07/12/18 20:50 Urine Color YELLOW 07/12/18 20:50 Urine Clarity CLOUDY (CLEAR) H 07/12/18 20:50 Urine pH 8.5 (4.6 - 8.0) 07/12/18 20:50 Ur Specific [place] 1.015 (1.005-1.030) 07/12/18 20:50 Urine Protein 100 mg/dL (NEGATIVE) H 07/12/18 20:50 Urine Glucose (UA) NEGATIVE mg/dL (NEGATIVE) 07/12/18 20:50 Urine Ketones NEGATIVE mg/dL (NEGATIVE) 07/12/18 20:50 Urine Blood TRACE (NEGATIVE) 07/12/18 20:50 Urine Nitrate NEGATIVE (NEGATIVE) 07/12/18 20:50 Urine Bilirubin NEGATIVE (NEGATIVE) 07/12/18 20:50 Urine Urobilinogen 0.2 E.U./dL (0.2 - 1.0) 07/12/18 20:50 Ur Leukocyte Esterase LARGE (NEGATIVE) H 07/12/18 20:50 Urine RBC 2-5 /hpf (0-5) 07/12/18 20:50 Urine WBC >100 /hpf (0-5) H 07/12/18 20:50 Ur Epithelial Cells MODERATE /lpf (FEW) 07/12/18 20:50 Urine Bacteria MANY /hpf (NONE SEEN) H 07/12/18 20:50 Amikacin Peak 35.4 ug/mL (20.0-30.0) H 07/25/18 23:55 Amikacin Trough 6.9 ug/mL (1.0-8.0) 07/23/18 18:00 Random Amikacin 14.8 ug/ml (1.0-30.0) 07/25/18 17:00 Random Vancomycin 25.5 ug/mL (5.0-40.0) 07/24/18 05:50 Crossmatch See Detail 07/28/18 07:30 - Physical Exam Vitals and I&O: Vital Signs Temp 97.2 F 07/29/18 12:00 Pulse 94 07/29/18 08:00 Resp 15 07/29/18 08:00 BP 131/53 07/29/18 12:00 Pulse Ox 100 07/29/18 08:00 Intake & Output 07/28/18 07/29/18 07/29/18 18:59 06:59 18:59 Intake Total 2310 300 100 Output Total 290 470 Balance 2019 100 Weight (lbs) 108.409 kg 106.141 kg Intake: Intake, IV Amount 100 100 100 Tigecycline 50 mg In 100 100 100 Sodium Chloride 0.9% 100 ml @ 100 mls/hr IV Q12HR [facility] Rx#:[id number] Oral 2210 200 Output: Drainage 105 100 Sacrum 105 100 Urine 60 20 Stool 125 350 Other: Stool Characteristics Soft Soft Brown Liquid Green Brown Green Weight Source Bedscale Bedscale Active Medications: Current Medications Acetaminophen (Tylenol) 650 mg PO Q6H PRN PRN Reason: Pain or Fever >101 Stop: 09/11/18 15:14 Albuterol/Ipratropium (Duoneb Neb) 3 ml HHN Q4HRT PRN PRN Reason: Shortness of Breath or Wheeze Stop: 09/11/18 15:14 Albuterol/Ipratropium (Duoneb Neb) 3 ml HHN Q6HRT [facility] Stop: 09/21/18 18:59 Last Admin: 07/29/18 06:41 Dose: 3 ml Ascorbic Acid (Vitamin C) 500 mg PO DAILY [facility] Stop: 09/12/18 08:59 Last Admin: 07/29/18 08:20 Dose: 500 mg Atorvastatin Calcium (Lipitor) 20 mg PO HS [facility] Stop: 09/11/18 20:59 Last Admin: 07/28/18 21:00 Dose: 20 mg Riley Oil/Tunisian Balsam/Trypsin (Venelex) 1 appl TP DAILY [facility] Stop: 09/13/18 08:59 Last Admin: 07/29/18 08:21 Dose: 1 appl Dextrose (Glutose 40%) 18.75 gm PO PRN PRN PRN Reason: Blood Glucose less than 70 Stop: 09/11/18 04:10 Docusate Sodium (Colace) 100 mg PO BID [facility] Stop: 09/11/18 16:59 Last Admin: 07/29/18 08:20 Dose: 100 mg Famotidine (Pepcid) 20 mg PO DAILY [facility] Stop: 09/12/18 08:59 Last Admin: 07/29/18 08:20 Dose: 20 mg Folic Acid (Folate) 1 mg PO DAILY [facility] Stop: 09/12/18 08:59 Last Admin: 07/29/18 08:20 Dose: 1 mg Glucagon (Glucagen) 1 mg IM PRN PRN PRN Reason: Blood Glucose less than 70 Stop: 09/11/18 04:10 Heparin Sodium (Porcine) (Heparin) 5,000 units SUBQ Q12HR [facility] Stop: 09/26/18 20:59 Last Admin: 07/29/18 08:20 Dose: 5,000 units Hydromorphone HCl (Dilaudid) 1 mg IVP Q4HR PRN PRN Reason: Pain (Severe) Stop: 09/20/18 20:12 Last Admin: 07/29/18 05:51 Dose: 1 mg Tigecycline 50 mg/ Sodium (Chloride) 100 mls @ 100 mls/hr IV Q12HR [facility] Stop: 09/17/18 19:44 Last Infusion: 07/29/18 12:09 Dose: Infused Norepinephrine Bitartrate 4 mg (/ Dextrose) 254 mls @ 38.1 mls/hr IV TITR PRN; Protocol PRN Reason: BP MAINTENANCE (PER PROTOCOL) Stop: 09/21/18 14:18 Last Titration: 07/24/18 04:10 Dose: 0 mcg/min, 0 mls/hr Insulin Aspart (Novolog Insulin Sliding Scale) 0 units SUBQ Q6HR [facility]; Protocol Stop: 09/11/18 05:59 Last Admin: 07/29/18 12:01 Dose: 4 units Lactobacillus Rhamnosus (Culturelle 15b) 1 each PO DAILY [facility] Stop: 09/13/18 13:59 Last Admin: 07/29/18 08:20 Dose: 1 each Levothyroxine Sodium (Synthroid) 0.025 mg PO QDAC [facility] Stop: 09/12/18 07:29 Last Admin: 07/29/18 08:20 Dose: 0.025 mg Miscellaneous (Probiotic Screen) 1 ea MC PRN PRN PRN Reason: PROTOCOL Stop: 09/13/18 11:44 Miscellaneous (Clinical Monitoring) 1 ea MC DAILY PRN PRN Reason: RENAL DOSING Stop: 09/27/18 08:38 Oxcarbazepine (Trileptal) 600 mg PO BID [facility] Stop: 09/11/18 16:59 Last Admin: 07/29/18 08:19 Dose: 600 mg Risperidone (Risperdal) 2 mg PO HS [facility] Stop: 09/11/18 20:59 Last Admin: 07/28/18 20:56 Dose: 2 mg Senna (Senna) 17.2 mg PO BID [facility] Stop: 09/11/18 16:59 Last Admin: 07/29/18 08:20 Dose: 17.2 mg Sevelamer Carbonate (Renvela) 800 mg PO TIDWM [facility] Stop: 09/11/18 16:59 Last Admin: 07/29/18 08:20 Dose: 800 mg Vitamin B Complex/Vit C/Folic Acid (Vitamin B Complex W/Vitamin C) 1 tab PO DAILY [facility] Stop: 09/12/18 08:59 Last Admin: 07/29/18 08:20 Dose: 1 tab Zinc Sulfate (Zinc Sulfate) 220 mg PO DAILY [facility] Stop: 09/12/18 08:59 Last Admin: 07/29/18 08:20 Dose: 220 mg General: no acute distress, well developed, well nourished HEENT: atraumatic, normocephalic, PERRLA, EOMI Neck: supple, no thyromegaly, no lymphadenopathy Cardiovascular: S1S2, regular Lungs: clear to auscultation bilaterally, clear to percussion Abdomen: soft, no tender, no distended Extremities: no cyanosis, no edema Neurological: awake, alert, oriented Skin: other (sacral wound, wound vac.) - Procedures Procedures: Procedures Procedure Code Date BYPASS DESCENDING COLON TO CUTANEOUS, OPEN APPROACH [id number] 07/12/18 EXCISION OF L LOW LEG SUBCU/FASCIA, OPEN APPROACH [id number] 07/12/18 EXCISION OF SACRUM, OPEN APPROACH [id number] 07/12/18 EXCISION OF SIGMOID COLON, OPEN APPROACH [id number] 07/12/18 RESPIRATORY VENTILATION, LESS THAN 24 CONSECUTIVE HOURS [id number] 07/12/18 Infectious Disease Assmt/Plan - Problem List Patient Problems: All Active Problems Anasarca (Acute) R60.1 Anemia (Acute) D64.9 CAD (coronary artery disease) (Acute) I25.10 CHF (congestive heart failure) (Acute) I50.9 CKD (chronic kidney disease) (Acute) N18.9 HTN (hypertension) (Acute) I10 UTI (urinary tract infection) (Acute) sacral stage 4 wound (Acute) - Assessment Assessment: 1. UTI 2. Staph CN in blood contaminant. 3. Hypoglycemia. 4. Diabetes mellitus type 1 with episodes of hypoglycemia. 5. Hypertension. 6. Anemia of chronic disease. 7. Coronary artery disease, 8. CHF.. 9. Anasarca 10. 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 11. sacral stage 4 wound. No evidence of osteimyelitis, 12. S/p Diverting colostomy. - Plan Plan: D c tygacil very soon. wound care. Nutritional Asmnt/Malnutr-PDOC - Dietary Evaluation Malnutrition Findings (Please click <Entered> for more info): Nutritional Asmnt/Malnutrition Start: 07/13/18 13: 54 Text: Status: Complete Freq: Protocol: Document 07/13/18 13:56 MMULHERN (Rec: 07/13/18 14:10 [email or web address]- [id number]) Nutritional Asmnt/Malnutrition Patient General Information Nutritional Screening Consult Diagnosis ESRD, anasarca Pertinent Medical Hx/Surgical Hx Seizure, hep C, diabetes, CAD, HTN, CVA, quadreplegia, Parkinsons, ESRD Subjective Information Consult received for "Diabetic ". Per nursing notes, patient receives hemodialysis MWF and patient is non-verbal. Patient with 2+ pitting edema. Current Diet Order/ Nutrition Support Renal diet Patient / S.O Not Indicated Pertinent Medications D50W, D5-0.45NS @50 ml/hr, Glucagon, Novolog Pertinent Labs (07/13) Na 134, BUN 48, Cr 2.9, glucose 41-137, Ca 8.2, BNP 515, albumin 2 Nutritional Hx/Data Height 1.73 m Height (Calculated Centimeters) 172.7 Current Weight (lbs) 113.852 kg Weight (Calculated Kilograms) 113.9 Weight (Calculated Grams) 495386.7 [place] Body Weight 140 % [place] Body Weight 179 Body Mass Index (BMI) 38.1 Recent Weight Change No Weight Status Morbidly Obese GI Symptoms GI Symptoms None Last BM 07/13 x 1 Difficult in: Chewing Food Allergies No Cultural/Ethnic/Spiritism Belief none indicated Usual diet at home unknown Skin Integrity/Comment: Arian 10, ulceration on sacrum, left lower leg, abrasion on L heel, scar on right leg. Current %PO Good (75-100%) Estimated Nutritional Goals BEE in Kcals: Adj wt of IBW Calories/Kcals/Kg 27-32 kcal/kg (using 76.2kg ADj wt) Kcals Calculated ~1229-4182 kcal/day Protein g/k.2-1.5 gm/kg using Adj wt Protein Calculated ~90-115 gm/day Fluid: ml Per MD due to HD Nutritional Problem 2. Problem Problem Altered nutrition related lab values related to Etiology episodes of hypoglycemia, electrolyte imbalance aeb Signs/Symptoms: Na 134, glucose 41-137, Ca 8.2 1. Problem Problem Increased nutrient needs related to Etiology hypermetabolic state, impaired skin integrity aeb Signs/Symptoms: Pt on Hemodialysis and with multiple ulcerations Intervention/Recommendation Comments 1. Continue Renal diet as tolerated by patient. No need for DM restriction at this time due to hypoglycemia. 2. Consider fluid restriction due to HD, hyponatremia and edema. 3. Consider adding Prosource 1 packet with each meal for an additional 45gm protein. Expected Outcomes/Goals Expected Outcomes/Goals Oral intake >75% of meals, weight stable or trend toward ideal body weight, nutrition related labs WNL
--- NOTE | 2018-07-29 14:17 | General Progress Note ---
Subjective - Review of Systems Service Date: 07/29/18 Subjective: alert, comfortable, on puree diet Objective - Results Result Diagrams: 07/29/18 05:00 07/29/18 05:00 Recent Labs: Laboratory Last Values WBC 6.8 Th/cmm (4.8-10.8) 07/29/18 05:00 RBC 3.06 Mil/cmm (3.80-5.10) L 07/29/18 05:00 Hgb 8.7 gm/dL (12-16) L 07/29/18 05:00 Hct 26.7 % (41.0-60) L 07/29/18 05:00 MCV 87.3 fl (81-100) 07/29/18 05:00 MCH 28.6 pg (27.0-31.0) 07/29/18 05:00 MCHC Differential 32.8 pg (28.0-36.0) 07/29/18 05:00 RDW 16.8 % (11.5-20.0) 07/29/18 05:00 Plt Count 135 Th/cmm (150-400) L 07/29/18 05:00 MPV 7.4 fl 07/29/18 05:00 Add Manual Diff YES 07/28/18 04:20 Neutrophils % 51.6 % (40.0-80.0) 07/29/18 05:00 Band Neutrophils % 0 % (0-10) 07/28/18 04:20 Lymphocytes % 35.0 % (20.0-50.0) 07/29/18 05:00 Monocytes % 12.8 % (2.0-10.0) H 07/29/18 05:00 Eosinophils % 0.4 % (0.0-5.0) 07/29/18 05:00 Basophils % 0.2 % (0.0-2.0) 07/29/18 05:00 Neutrophils (Manual) 60 % (40-80) 07/28/18 04:20 Lymphocytes 30 % (20-50) 07/28/18 04:20 Monocytes 10 % (2-10) 07/28/18 04:20 Eosinophils 0 % (0-5) 07/28/18 04:20 Basophils 0 % (0-3) 07/28/18 04:20 Platelet Estimate DECREASED PLATELETS (NORMAL) 07/28/18 04:20 PT 17.0 SECONDS (9.5-11.5) H 07/28/18 04:20 INR 1.67 (0.5-1.4) H 07/28/18 04:20 PTT (Actin FS) 43.0 SECONDS (26.0-38.0) H 07/20/18 08:08 Specimen Source Arterial 07/23/18 17:00 Sample Site LB 07/23/18 17:00 pH 7.44 (7.35-7.45) 07/23/18 17:00 pCO2 44.0 mmHg (35.0-45.0) 07/23/18 17:00 pO2 86.0 mmHg (80.0-100.0) 07/23/18 17:00 HCO3 28.9 mEq/L (20.0-26.0) H 07/23/18 17:00 Base Excess 5.1 mEq/L (-3.0-3.0) H 07/23/18 17:00 O2 Saturation 97.0 % (92.0-100.0) 07/23/18 17:00 [place] Test NA 07/23/18 17:00 Vent Rate NA 07/23/18 17:00 Inspired O2 40 07/23/18 17:00 Tidal Volume NA 07/23/18 17:00 PEEP NA 07/23/18 17:00 Pressure (ins/psv/peep) NA 07/23/18 17:00 Critical Value E.QUINTEROS 07/23/18 17:00 Sodium 132 mEq/L (136-145) L 07/29/18 05:00 Potassium 4.5 mEq/L (3.5-5.1) 07/29/18 05:00 Chloride 102 mEq/L (98-107) 07/29/18 05:00 Carbon Dioxide 24.7 mEq/L (21.0-31.0) 07/29/18 05:00 Anion Gap 9.8 (7.0-16.0) 07/29/18 05:00 BUN 17 mg/dL (7-25) 07/29/18 05:00 Creatinine 3.0 mg/dL (0.6-1.2) H 07/29/18 05:00 Est GFR ( Amer) 21.2 ml/min (>90) 07/29/18 05:00 Est GFR (Non-Af Amer) 17.6 ml/min 07/29/18 05:00 BUN/Creatinine Ratio 5.7 07/29/18 05:00 Glucose 192 mg/dL (70-105) H 07/29/18 05:00 POC Glucose 211 MG/DL (70 - 105) H 07/29/18 11:35 Whole Bld Lactic Acid 1.29 mmol/L (0.60-1.99) 07/12/18 20:50 Calcium 8.8 mg/dL (8.6-10.3) 07/29/18 05:00 Magnesium 1.6 mg/dL (1.9-2.7) L 07/21/18 05:00 Total Bilirubin 0.3 mg/dL (0.3-1.0) 07/18/18 05:20 AST 18 U/L (13-39) 07/18/18 05:20 ALT 7 U/L (7-52) 07/18/18 05:20 Alkaline Phosphatase 80 U/L (34-104) 07/18/18 05:20 Creatine Kinase 20 U/L (30-223) L 07/12/18 20:50 Troponin I 0.49 ng/mL (0.01-0.05) H* 07/13/18 15:20 B-Natriuretic Peptide 515.0 pg/mL (5.0-100.0) H 07/13/18 04:00 Total Protein 4.0 gm/dL (6.0-8.3) L 07/18/18 05:20 Albumin < 1.5 gm/dL (3.7-5.3) L 07/18/18 05:20 Globulin 2.5 gm/dL 07/18/18 05:20 Albumin/Globulin Ratio 0.6 (1.0-1.8) L 07/18/18 05:20 Triglycerides 53 mg/dL (<150) 07/13/18 04:00 Cholesterol 41 mg/dL (<200) 07/13/18 04:00 LDL Cholesterol Direct 11 mg/dL (75-193) L 07/13/18 04:00 HDL Cholesterol 24 mg/dL (23-92) 07/13/18 04:00 TSH 1.21 uIU/ml (0.34-5.60) 07/13/18 04:00 Urine Source [place] 07/12/18 20:50 Urine Color YELLOW 07/12/18 20:50 Urine Clarity CLOUDY (CLEAR) H 07/12/18 20:50 Urine pH 8.5 (4.6 - 8.0) 07/12/18 20:50 Ur Specific Cook 1.015 (1.005-1.030) 07/12/18 20:50 Urine Protein 100 mg/dL (NEGATIVE) H 07/12/18 20:50 Urine Glucose (UA) NEGATIVE mg/dL (NEGATIVE) 07/12/18 20:50 Urine Ketones NEGATIVE mg/dL (NEGATIVE) 07/12/18 20:50 Urine Blood TRACE (NEGATIVE) 07/12/18 20:50 Urine Nitrate NEGATIVE (NEGATIVE) 07/12/18 20:50 Urine Bilirubin NEGATIVE (NEGATIVE) 07/12/18 20:50 Urine Urobilinogen 0.2 E.U./dL (0.2 - 1.0) 07/12/18 20:50 Ur Leukocyte Esterase LARGE (NEGATIVE) H 07/12/18 20:50 Urine RBC 2-5 /hpf (0-5) 07/12/18 20:50 Urine WBC >100 /hpf (0-5) H 07/12/18 20:50 Ur Epithelial Cells MODERATE /lpf (FEW) 07/12/18 20:50 Urine Bacteria MANY /hpf (NONE SEEN) H 07/12/18 20:50 Amikacin Peak 35.4 ug/mL (20.0-30.0) H 07/25/18 23:55 Amikacin Trough 6.9 ug/mL (1.0-8.0) 07/23/18 18:00 Random Amikacin 14.8 ug/ml (1.0-30.0) 07/25/18 17:00 Random Vancomycin 25.5 ug/mL (5.0-40.0) 07/24/18 05:50 Crossmatch See Detail 07/28/18 07:30 - Physical Exam Vitals and I&O: Vital Signs Temp 97.2 F 07/29/18 12:00 Pulse 112 07/29/18 14:01 Resp 18 07/29/18 14:01 BP 131/53 07/29/18 12:00 Pulse Ox 99 07/29/18 14:01 Intake & Output 07/28/18 07/29/18 07/29/18 18:59 06:59 18:59 Intake Total 2310 300 100 Output Total 290 470 Balance 2019 100 Weight (lbs) 108.409 kg 106.141 kg Intake: Intake, IV Amount 100 100 100 Tigecycline 50 mg In 100 100 100 Sodium Chloride 0.9% 100 ml @ 100 mls/hr IV Q12HR [facility] Rx#:[id number] Oral 2210 200 Output: Drainage 105 100 Sacrum 105 100 Urine 60 20 Stool 125 350 Other: Stool Characteristics Soft Soft Brown Liquid Green Brown Green Weight Source Bedscale Bedscale Active Medications: Current Medications Acetaminophen (Tylenol) 650 mg PO Q6H PRN PRN Reason: Pain or Fever >101 Stop: 09/11/18 15:14 Albuterol/Ipratropium (Duoneb Neb) 3 ml HHN Q4HRT PRN PRN Reason: Shortness of Breath or Wheeze Stop: 09/11/18 15:14 Albuterol/Ipratropium (Duoneb Neb) 3 ml HHN Q6HRT [facility] Stop: 09/21/18 18:59 Last Admin: 07/29/18 14:00 Dose: 3 ml Ascorbic Acid (Vitamin C) 500 mg PO DAILY [facility] Stop: 09/12/18 08:59 Last Admin: 07/29/18 08:20 Dose: 500 mg Atorvastatin Calcium (Lipitor) 20 mg PO HS [facility] Stop: 09/11/18 20:59 Last Admin: 07/28/18 21:00 Dose: 20 mg [place] Oil/Swiss Balsam/Trypsin (Venelex) 1 appl TP DAILY [facility] Stop: 09/13/18 08:59 Last Admin: 07/29/18 08:21 Dose: 1 appl Dextrose (Glutose 40%) 18.75 gm PO PRN PRN PRN Reason: Blood Glucose less than 70 Stop: 09/11/18 04:10 Docusate Sodium (Colace) 100 mg PO BID [facility] Stop: 09/11/18 16:59 Last Admin: 07/29/18 08:20 Dose: 100 mg Famotidine (Pepcid) 20 mg PO DAILY [facility] Stop: 09/12/18 08:59 Last Admin: 07/29/18 08:20 Dose: 20 mg Folic Acid (Folate) 1 mg PO DAILY [facility] Stop: 09/12/18 08:59 Last Admin: 07/29/18 08:20 Dose: 1 mg Glucagon (Glucagen) 1 mg IM PRN PRN PRN Reason: Blood Glucose less than 70 Stop: 09/11/18 04:10 Heparin Sodium (Porcine) (Heparin) 5,000 units SUBQ Q12HR [facility] Stop: 09/26/18 20:59 Last Admin: 07/29/18 08:20 Dose: 5,000 units Hydromorphone HCl (Dilaudid) 1 mg IVP Q4HR PRN PRN Reason: Pain (Severe) Stop: 09/20/18 20:12 Last Admin: 07/29/18 05:51 Dose: 1 mg Tigecycline 50 mg/ Sodium (Chloride) 100 mls @ 100 mls/hr IV Q12HR [facility] Stop: 09/17/18 19:44 Last Infusion: 07/29/18 12:09 Dose: Infused Norepinephrine Bitartrate 4 mg (/ Dextrose) 254 mls @ 38.1 mls/hr IV TITR PRN; Protocol PRN Reason: BP MAINTENANCE (PER PROTOCOL) Stop: 09/21/18 14:18 Last Titration: 07/24/18 04:10 Dose: 0 mcg/min, 0 mls/hr Insulin Aspart (Novolog Insulin Sliding Scale) 0 units SUBQ Q6HR [facility]; Protocol Stop: 09/11/18 05:59 Last Admin: 07/29/18 12:01 Dose: 4 units Lactobacillus Rhamnosus (Culturelle 15b) 1 each PO DAILY [facility] Stop: 09/13/18 13:59 Last Admin: 07/29/18 08:20 Dose: 1 each Levothyroxine Sodium (Synthroid) 0.025 mg PO QDAC [facility] Stop: 09/12/18 07:29 Last Admin: 07/29/18 08:20 Dose: 0.025 mg Miscellaneous (Probiotic Screen) 1 ea MC PRN PRN PRN Reason: PROTOCOL Stop: 09/13/18 11:44 Miscellaneous (Clinical Monitoring) 1 ea MC DAILY PRN PRN Reason: RENAL DOSING Stop: 09/27/18 08:38 Oxcarbazepine (Trileptal) 600 mg PO BID [facility] Stop: 09/11/18 16:59 Last Admin: 07/29/18 08:19 Dose: 600 mg Risperidone (Risperdal) 2 mg PO HS [facility] Stop: 09/11/18 20:59 Last Admin: 07/28/18 20:56 Dose: 2 mg Senna (Senna) 17.2 mg PO BID [facility] Stop: 09/11/18 16:59 Last Admin: 07/29/18 08:20 Dose: 17.2 mg Sevelamer Carbonate (Renvela) 800 mg PO TIDWM [facility] Stop: 09/11/18 16:59 Last Admin: 07/29/18 14:12 Dose: Not Given Vitamin B Complex/Vit C/Folic Acid (Vitamin B Complex W/Vitamin C) 1 tab PO DAILY [facility] Stop: 09/12/18 08:59 Last Admin: 07/29/18 08:20 Dose: 1 tab Zinc Sulfate (Zinc Sulfate) 220 mg PO DAILY [facility] Stop: 09/12/18 08:59 Last Admin: 07/29/18 08:20 Dose: 220 mg General: Alert, Mild distress HEENT: Atraumatic, EOMI Neck: Supple, +2 carotid pulse wo bruit Cardiovascular: Regular rate, Normal S1, Normal S2 Lungs: Other (scattered rhonchi) Abdomen: Bowel sounds, Soft Extremities: Edema ((+) 2-3 edema), Other ((+) 2 bipedal edema) Neurological: Sensation intact Skin: no Rash Psych/Mental Status: Mood NL - Procedures Procedures: Procedures Procedure Code Date BYPASS DESCENDING COLON TO CUTANEOUS, OPEN APPROACH [id number] 07/12/18 EXCISION OF L LOW LEG SUBCU/FASCIA, OPEN APPROACH [id number] 07/12/18 EXCISION OF SACRUM, OPEN APPROACH [id number] 07/12/18 EXCISION OF SIGMOID COLON, OPEN APPROACH [id number] 07/12/18 RESPIRATORY VENTILATION, LESS THAN 24 CONSECUTIVE HOURS [id number] 07/12/18 Assessment/Plan - Problem List Patient Problems: All Active Problems Anasarca (Acute) R60.1 Anemia (Acute) D64.9 CAD (coronary artery disease) (Acute) I25.10 CHF (congestive heart failure) (Acute) I50.9 CKD (chronic kidney disease) (Acute) N18.9 HTN (hypertension) (Acute) I10 UTI (urinary tract infection) (Acute) sacral stage 4 wound (Acute) - Assessment Assessment: ESRD on HD Hypothyroid Parkinson Ds. Fnc Quad Hep B,C GERD Left Calf ulcer Sacral Decub ulcer stage 4, w/ wound vacuum Cholelithiasis B/L HAP w/ effusions Peripheral edema Left SFV DVT S/P Diverting Colostomy - Plan Plan: Lab - Result Diagrams 07/14/18 05:00 07/14/18 05:00 Current Medications Acetaminophen (Tylenol) 650 mg PO Q6H PRN PRN Reason: Pain or Fever >101 Stop: 09/11/18 15:14 Acetaminophen/Hydrocodone Bitart ([place] 5mg/325mg) 1 tab PO Q6H PRN PRN Reason: Pain (Severe) Stop: 09/11/18 15:14 Albuterol/Ipratropium (Duoneb Neb) 3 ml HHN Q4HRT PRN PRN Reason: Shortness of Breath or Wheeze Stop: 09/11/18 15:14 Ascorbic Acid (Vitamin C) 500 mg PO DAILY [facility] Stop: 09/12/18 08:59 Last Admin: 07/14/18 08:27 Dose: 500 mg Atorvastatin Calcium (Lipitor) 20 mg PO HS [facility] Stop: 09/11/18 20:59 Last Admin: 07/13/18 21:05 Dose: 20 mg Dextrose (D50w) 50 ml IVP PRN PRN PRN Reason: Blood Glucose less than 70 Stop: 09/11/18 04:10 Dextrose (Glutose 40%) 18.75 gm PO PRN PRN PRN Reason: Blood Glucose less than 70 Stop: 09/11/18 04:10 Docusate Sodium (Colace) 100 mg PO BID [facility] Stop: 09/11/18 16:59 Last Admin: 07/14/18 08:27 Dose: 100 mg Famotidine (Pepcid) 20 mg PO DAILY [facility] Stop: 09/12/18 08:59 Last Admin: 07/14/18 08:27 Dose: 20 mg Folic Acid (Folate) 1 mg PO DAILY [facility] Stop: 09/12/18 08:59 Last Admin: 07/14/18 08:27 Dose: 1 mg Glucagon (Glucagen) 1 mg IM PRN PRN PRN Reason: Blood Glucose less than 70 Stop: 09/11/18 04:10 Piperacillin Sod/Tazobactam (Sod 2.25 gm/ Sodium Chloride) 50 mls @ 100 mls/hr IV Q6H [facility] Stop: 09/11/18 05:59 Last Admin: 07/14/18 06:05 Dose: Not Given Dextrose/Sodium Chloride (D5-0.45ns) 1,000 mls @ 50 mls/hr IV .Q20H [facility] Stop: 09/11/18 02:29 Last Admin: 07/13/18 04:03 Dose: 50 mls/hr Insulin Aspart (Novolog Insulin Sliding Scale) 0 units SUBQ Q6HR [facility]; Protocol Stop: 09/11/18 05:59 Last Admin: 07/14/18 06:05 Dose: Not Given Levothyroxine Sodium (Synthroid) 0.025 mg PO QDAC [facility] Stop: 09/12/18 07:29 Last Admin: 07/14/18 06:35 Dose: 0.025 mg Miscellaneous (Vancomycin Iv Per Pharmacy) 1 [facility] PRN PRN PRN Reason: PROTOCOL Stop: 09/10/18 23:40 Oxcarbazepine (Trileptal) 600 mg PO BID [facility] Stop: 09/11/18 16:59 Last Admin: 07/14/18 08:27 Dose: 600 mg Risperidone (Risperdal) 2 mg PO HS [facility] Stop: 09/11/18 20:59 Last Admin: 07/13/18 21:05 Dose: 2 mg Senna (Senna) 17.2 mg PO BID [facility] Stop: 09/11/18 16:59 Last Admin: 07/14/18 08:27 Dose: 17.2 mg Sevelamer Carbonate (Renvela) 800 mg PO TIDWM [facility] Stop: 09/11/18 16:59 Last Admin: 07/14/18 08:27 Dose: 800 mg Temazepam (Restoril) 15 mg PO HS PRN; Protocol PRN Reason: Insomnia Stop: 09/11/18 15:14 Vitamin B Complex/Vit C/Folic Acid (Vitamin B Complex W/Vitamin C) 1 tab PO DAILY [facility] Stop: 09/12/18 08:59 Last Admin: 07/14/18 08:27 Dose: 1 tab Zinc Sulfate (Zinc Sulfate) 220 mg PO DAILY [facility] Stop: 09/12/18 08:59 Last Admin: 07/14/18 08:27 Dose: 220 m Lab - Result Diagrams 07/29/18 05:00 07/29/18 05:00 continue wound care Pt. had diverting colostomy CXR still w/ persistent B/L effusion L>R schedule for HD today started on Puree diet for CXR in am Nutritional Asmnt/Malnutr-PDOC - Dietary Evaluation Malnutrition Findings (Please click <Entered> for more info): Nutritional Asmnt/Malnutrition Start: 07/13/18 13: 54 Text: Status: Complete Freq: Protocol: Document 07/13/18 13:56 MMERIN (Rec: 07/13/18 14:10 [email or web address]- [id number]) Nutritional Asmnt/Malnutrition Patient General Information Nutritional Screening Consult Diagnosis ESRD, anasarca Pertinent Medical Hx/Surgical Hx Seizure, hep C, diabetes, CAD, HTN, CVA, quadreplegia, Parkinsons, ESRD Subjective Information Consult received for "Diabetic ". Per nursing notes, patient receives hemodialysis MWF and patient is non-verbal. Patient with 2+ pitting edema. Current Diet Order/ Nutrition Support Renal diet Patient / S.O Not Indicated Pertinent Medications D50W, D5-0.45NS @50 ml/hr, Glucagon, Novolog Pertinent Labs (07/13) Na 134, BUN 48, Cr 2.9, glucose 41-137, Ca 8.2, BNP 515, albumin 2 Nutritional Hx/Data Height 1.73 m Height (Calculated Centimeters) 172.7 Current Weight (lbs) 113.852 kg Weight (Calculated Kilograms) 113.9 Weight (Calculated Grams) 680233.7 Theodore Body Weight 140 % Theodore Body Weight 179 Body Mass Index (BMI) 38.1 Recent Weight Change No Weight Status Morbidly Obese GI Symptoms GI Symptoms None Last BM 07/13 x 1 Difficult in: Chewing Food Allergies No Cultural/Ethnic/Rastafarian Belief none indicated Usual diet at home unknown Skin Integrity/Comment: Arian 10, ulceration on sacrum, left lower leg, abrasion on L heel, scar on right leg. Current %PO Good (75-100%) Estimated Nutritional Goals BEE in Kcals: Adj wt of IBW Calories/Kcals/Kg 27-32 kcal/kg (using 76.2kg ADj wt) Kcals Calculated ~6160-8967 kcal/day Protein g/k.2-1.5 gm/kg using Adj wt Protein Calculated ~90-115 gm/day Fluid: ml Per MD due to HD Nutritional Problem 2. Problem Problem Altered nutrition related lab values related to Etiology episodes of hypoglycemia, electrolyte imbalance aeb Signs/Symptoms: Na 134, glucose 41-137, Ca 8.2 1. Problem Problem Increased nutrient needs related to Etiology hypermetabolic state, impaired skin integrity aeb Signs/Symptoms: Pt on Hemodialysis and with multiple ulcerations Intervention/Recommendation Comments 1. Continue Renal diet as tolerated by patient. No need for DM restriction at this time due to hypoglycemia. 2. Consider fluid restriction due to HD, hyponatremia and edema. 3. Consider adding Prosource 1 packet with each meal for an additional 45gm protein. Expected Outcomes/Goals Expected Outcomes/Goals Oral intake >75% of meals, weight stable or trend toward ideal body weight, nutrition related labs WNL
[2018-07-29] MEDS: Hydrocodone/APAP 5mg/325mg Tab PO PRN (16:32)
--- NOTE | 2018-07-29 16:40 | General Progress Note ---
Subjective - Review of Systems Events since last encounter: awake in no distress no fever Objective - Results Result Diagrams: 07/29/18 05:00 07/29/18 05:00 Recent Labs: Laboratory Last Values WBC 6.8 Th/cmm (4.8-10.8) 07/29/18 05:00 RBC 3.06 Mil/cmm (3.80-5.10) L 07/29/18 05:00 Hgb 8.7 gm/dL (12-16) L 07/29/18 05:00 Hct 26.7 % (41.0-60) L 07/29/18 05:00 MCV 87.3 fl (81-100) 07/29/18 05:00 MCH 28.6 pg (27.0-31.0) 07/29/18 05:00 MCHC Differential 32.8 pg (28.0-36.0) 07/29/18 05:00 RDW 16.8 % (11.5-20.0) 07/29/18 05:00 Plt Count 135 Th/cmm (150-400) L 07/29/18 05:00 MPV 7.4 fl 07/29/18 05:00 Add Manual Diff YES 07/28/18 04:20 Neutrophils % 51.6 % (40.0-80.0) 07/29/18 05:00 Band Neutrophils % 0 % (0-10) 07/28/18 04:20 Lymphocytes % 35.0 % (20.0-50.0) 07/29/18 05:00 Monocytes % 12.8 % (2.0-10.0) H 07/29/18 05:00 Eosinophils % 0.4 % (0.0-5.0) 07/29/18 05:00 Basophils % 0.2 % (0.0-2.0) 07/29/18 05:00 Neutrophils (Manual) 60 % (40-80) 07/28/18 04:20 Lymphocytes 30 % (20-50) 07/28/18 04:20 Monocytes 10 % (2-10) 07/28/18 04:20 Eosinophils 0 % (0-5) 07/28/18 04:20 Basophils 0 % (0-3) 07/28/18 04:20 Platelet Estimate DECREASED PLATELETS (NORMAL) 07/28/18 04:20 PT 17.0 SECONDS (9.5-11.5) H 07/28/18 04:20 INR 1.67 (0.5-1.4) H 07/28/18 04:20 PTT (Actin FS) 43.0 SECONDS (26.0-38.0) H 07/20/18 08:08 Specimen Source Arterial 07/23/18 17:00 Sample Site LB 07/23/18 17:00 pH 7.44 (7.35-7.45) 07/23/18 17:00 pCO2 44.0 mmHg (35.0-45.0) 07/23/18 17:00 pO2 86.0 mmHg (80.0-100.0) 07/23/18 17:00 HCO3 28.9 mEq/L (20.0-26.0) H 07/23/18 17:00 Base Excess 5.1 mEq/L (-3.0-3.0) H 07/23/18 17:00 O2 Saturation 97.0 % (92.0-100.0) 07/23/18 17:00 [place] Test NA 07/23/18 17:00 Vent Rate NA 07/23/18 17:00 Inspired O2 40 07/23/18 17:00 Tidal Volume NA 07/23/18 17:00 PEEP NA 07/23/18 17:00 Pressure (ins/psv/peep) NA 07/23/18 17:00 Critical Value E.QUINTEROS 07/23/18 17:00 Sodium 132 mEq/L (136-145) L 07/29/18 05:00 Potassium 4.5 mEq/L (3.5-5.1) 07/29/18 05:00 Chloride 102 mEq/L (98-107) 07/29/18 05:00 Carbon Dioxide 24.7 mEq/L (21.0-31.0) 07/29/18 05:00 Anion Gap 9.8 (7.0-16.0) 07/29/18 05:00 BUN 17 mg/dL (7-25) 07/29/18 05:00 Creatinine 3.0 mg/dL (0.6-1.2) H 07/29/18 05:00 Est GFR ( Amer) 21.2 ml/min (>90) 07/29/18 05:00 Est GFR (Non-Af Amer) 17.6 ml/min 07/29/18 05:00 BUN/Creatinine Ratio 5.7 07/29/18 05:00 Glucose 192 mg/dL (70-105) H 07/29/18 05:00 POC Glucose 211 MG/DL (70 - 105) H 07/29/18 11:35 Whole Bld Lactic Acid 1.29 mmol/L (0.60-1.99) 07/12/18 20:50 Calcium 8.8 mg/dL (8.6-10.3) 07/29/18 05:00 Magnesium 1.6 mg/dL (1.9-2.7) L 07/21/18 05:00 Total Bilirubin 0.3 mg/dL (0.3-1.0) 07/18/18 05:20 AST 18 U/L (13-39) 07/18/18 05:20 ALT 7 U/L (7-52) 07/18/18 05:20 Alkaline Phosphatase 80 U/L (34-104) 07/18/18 05:20 Creatine Kinase 20 U/L (30-223) L 07/12/18 20:50 Troponin I 0.49 ng/mL (0.01-0.05) H* 07/13/18 15:20 B-Natriuretic Peptide 515.0 pg/mL (5.0-100.0) H 07/13/18 04:00 Total Protein 4.0 gm/dL (6.0-8.3) L 07/18/18 05:20 Albumin < 1.5 gm/dL (3.7-5.3) L 07/18/18 05:20 Globulin 2.5 gm/dL 07/18/18 05:20 Albumin/Globulin Ratio 0.6 (1.0-1.8) L 07/18/18 05:20 Triglycerides 53 mg/dL (<150) 07/13/18 04:00 Cholesterol 41 mg/dL (<200) 07/13/18 04:00 LDL Cholesterol Direct 11 mg/dL (75-193) L 07/13/18 04:00 HDL Cholesterol 24 mg/dL (23-92) 07/13/18 04:00 TSH 1.21 uIU/ml (0.34-5.60) 07/13/18 04:00 Urine Source [place] 07/12/18 20:50 Urine Color YELLOW 07/12/18 20:50 Urine Clarity CLOUDY (CLEAR) H 07/12/18 20:50 Urine pH 8.5 (4.6 - 8.0) 07/12/18 20:50 Ur Specific [place] 1.015 (1.005-1.030) 07/12/18 20:50 Urine Protein 100 mg/dL (NEGATIVE) H 07/12/18 20:50 Urine Glucose (UA) NEGATIVE mg/dL (NEGATIVE) 07/12/18 20:50 Urine Ketones NEGATIVE mg/dL (NEGATIVE) 07/12/18 20:50 Urine Blood TRACE (NEGATIVE) 07/12/18 20:50 Urine Nitrate NEGATIVE (NEGATIVE) 07/12/18 20:50 Urine Bilirubin NEGATIVE (NEGATIVE) 07/12/18 20:50 Urine Urobilinogen 0.2 E.U./dL (0.2 - 1.0) 07/12/18 20:50 Ur Leukocyte Esterase LARGE (NEGATIVE) H 07/12/18 20:50 Urine RBC 2-5 /hpf (0-5) 07/12/18 20:50 Urine WBC >100 /hpf (0-5) H 07/12/18 20:50 Ur Epithelial Cells MODERATE /lpf (FEW) 07/12/18 20:50 Urine Bacteria MANY /hpf (NONE SEEN) H 07/12/18 20:50 Amikacin Peak 35.4 ug/mL (20.0-30.0) H 07/25/18 23:55 Amikacin Trough 6.9 ug/mL (1.0-8.0) 07/23/18 18:00 Random Amikacin 14.8 ug/ml (1.0-30.0) 07/25/18 17:00 Random Vancomycin 25.5 ug/mL (5.0-40.0) 07/24/18 05:50 Crossmatch See Detail 07/28/18 07:30 - Physical Exam Vitals and I&O: Vital Signs Temp 97.2 F 07/29/18 12:00 Pulse 112 07/29/18 14:01 Resp 18 07/29/18 14:01 BP 131/53 07/29/18 12:00 Pulse Ox 99 07/29/18 14:01 Intake & Output 09/07/29/18 07/29/18 18:59 06:59 18:59 Intake Total 2310 300 100 Output Total 290 470 Balance 2019 100 Weight (lbs) 108.409 kg 106.141 kg Intake: Intake, IV Amount 100 100 100 Tigecycline 50 mg In 100 100 100 Sodium Chloride 0.9% 100 ml @ 100 mls/hr IV Q12HR [facility] Rx#:[id number] Oral 2210 200 Output: Drainage 105 100 Sacrum 105 100 Urine 60 20 Stool 125 350 Other: Stool Characteristics Soft Soft Brown Liquid Green Brown Green Weight Source Bedscale Bedscale Active Medications: Current Medications Acetaminophen (Tylenol) 650 mg PO Q6H PRN PRN Reason: Mild Pain or Fever >101 Stop: 09/11/18 15:14 Acetaminophen/Hydrocodone Bitart (Fries 5mg/325mg) 1 tab PO Q4H PRN PRN Reason: Pain (Moderate) Stop: 09/27/18 14:34 Last Admin: 07/29/18 16:32 Dose: 1 tab Albuterol/Ipratropium (Duoneb Neb) 3 ml HHN Q4HRT PRN PRN Reason: Shortness of Breath or Wheeze Stop: 09/11/18 15:14 Albuterol/Ipratropium (Duoneb Neb) 3 ml HHN Q6HRT [facility] Stop: 09/21/18 18:59 Last Admin: 07/29/18 14:00 Dose: 3 ml Ascorbic Acid (Vitamin C) 500 mg PO DAILY [facility] Stop: 09/12/18 08:59 Last Admin: 07/29/18 08:20 Dose: 500 mg Atorvastatin Calcium (Lipitor) 20 mg PO HS [facility] Stop: 09/11/18 20:59 Last Admin: 07/28/18 21:00 Dose: 20 mg [place] Oil/[place] Balsam/Trypsin (Venelex) 1 appl TP DAILY [facility] Stop: 09/13/18 08:59 Last Admin: 07/29/18 08:21 Dose: 1 appl Dextrose (Glutose 40%) 18.75 gm PO PRN PRN PRN Reason: Blood Glucose less than 70 Stop: 09/11/18 04:10 Docusate Sodium (Colace) 100 mg PO BID [facility] Stop: 09/11/18 16:59 Last Admin: 07/29/18 08:20 Dose: 100 mg Famotidine (Pepcid) 20 mg PO DAILY [facility] Stop: 09/12/18 08:59 Last Admin: 07/29/18 08:20 Dose: 20 mg Folic Acid (Folate) 1 mg PO DAILY [facility] Stop: 09/12/18 08:59 Last Admin: 07/29/18 08:20 Dose: 1 mg Glucagon (Glucagen) 1 mg IM PRN PRN PRN Reason: Blood Glucose less than 70 Stop: 09/11/18 04:10 Heparin Sodium (Porcine) (Heparin) 5,000 units SUBQ Q12HR [facility] Stop: 09/26/18 20:59 Last Admin: 07/29/18 08:20 Dose: 5,000 units Tigecycline 50 mg/ Sodium (Chloride) 100 mls @ 100 mls/hr IV Q12HR [facility] Stop: 09/17/18 19:44 Last Infusion: 07/29/18 12:09 Dose: Infused Norepinephrine Bitartrate 4 mg (/ Dextrose) 254 mls @ 38.1 mls/hr IV TITR PRN; Protocol PRN Reason: BP MAINTENANCE (PER PROTOCOL) Stop: 09/21/18 14:18 Last Titration: 07/24/18 04:10 Dose: 0 mcg/min, 0 mls/hr Insulin Aspart (Novolog Insulin Sliding Scale) 0 units SUBQ Q6HR [facility]; Protocol Stop: 09/11/18 05:59 Last Admin: 07/29/18 12:01 Dose: 4 units Lactobacillus Rhamnosus (Culturelle 15b) 1 each PO DAILY [facility] Stop: 09/13/18 13:59 Last Admin: 07/29/18 08:20 Dose: 1 each Levothyroxine Sodium (Synthroid) 0.025 mg PO QDAC [facility] Stop: 09/12/18 07:29 Last Admin: 07/29/18 08:20 Dose: 0.025 mg Miscellaneous (Probiotic Screen) 1 ea MC PRN PRN PRN Reason: PROTOCOL Stop: 09/13/18 11:44 Miscellaneous (Clinical Monitoring) 1 ea MC DAILY PRN PRN Reason: RENAL DOSING Stop: 09/27/18 08:38 Oxcarbazepine (Trileptal) 600 mg PO BID [facility] Stop: 09/11/18 16:59 Last Admin: 07/29/18 08:19 Dose: 600 mg Risperidone (Risperdal) 2 mg PO HS [facility] Stop: 09/11/18 20:59 Last Admin: 07/28/18 20:56 Dose: 2 mg Senna (Senna) 17.2 mg PO BID [facility] Stop: 09/11/18 16:59 Last Admin: 07/29/18 08:20 Dose: 17.2 mg Sevelamer Carbonate (Renvela) 800 mg PO TIDWM [facility] Stop: 09/11/18 16:59 Last Admin: 07/29/18 14:12 Dose: Not Given Vitamin B Complex/Vit C/Folic Acid (Vitamin B Complex W/Vitamin C) 1 tab PO DAILY [facility] Stop: 09/12/18 08:59 Last Admin: 07/29/18 08:20 Dose: 1 tab Zinc Sulfate (Zinc Sulfate) 220 mg PO DAILY [facility] Stop: 09/12/18 08:59 Last Admin: 07/29/18 08:20 Dose: 220 mg General: Alert, Mild distress HEENT: Atraumatic, EOMI Neck: Supple, +2 carotid pulse wo bruit Cardiovascular: Regular rate, Normal S1, Normal S2 Lungs: Other (scattered rhonchi) Abdomen: Bowel sounds, Soft Extremities: Edema ((+) 2-3 edema), Other ((+) 2 bipedal edema) Neurological: Sensation intact Skin: no Rash Psych/Mental Status: Mood NL - Procedures Procedures: Procedures Procedure Code Date BYPASS DESCENDING COLON TO CUTANEOUS, OPEN APPROACH [id number] 07/12/18 EXCISION OF L LOW LEG SUBCU/FASCIA, OPEN APPROACH [id number] 07/12/18 EXCISION OF SACRUM, OPEN APPROACH [id number] 07/12/18 EXCISION OF SIGMOID COLON, OPEN APPROACH [id number] 07/12/18 RESPIRATORY VENTILATION, LESS THAN 24 CONSECUTIVE HOURS [id number] 07/12/18 Assessment/Plan - Problem List Patient Problems: All Active Problems Anasarca (Acute) R60.1 Anemia (Acute) D64.9 CAD (coronary artery disease) (Acute) I25.10 CHF (congestive heart failure) (Acute) I50.9 CKD (chronic kidney disease) (Acute) N18.9 HTN (hypertension) (Acute) I10 UTI (urinary tract infection) (Acute) sacral stage 4 wound (Acute) - Plan Plan: as per order sheet Nutritional Asmnt/Malnutr-PDOC - Dietary Evaluation Malnutrition Findings (Please click <Entered> for more info): Nutritional Asmnt/Malnutrition Start: 07/13/18 13: 54 Text: Status: Complete Freq: Protocol: Document 07/13/18 13:56 HUNTERMac (Rec: 07/13/18 14:10 ALDAIR SAAD- [id number]) Nutritional Asmnt/Malnutrition Patient General Information Nutritional Screening Consult Diagnosis ESRD, anasarca Pertinent Medical Hx/Surgical Hx Seizure, hep C, diabetes, CAD, HTN, CVA, quadreplegia, Parkinsons, ESRD Subjective Information Consult received for "Diabetic ". Per nursing notes, patient receives hemodialysis MWF and patient is non-verbal. Patient with 2+ pitting edema. Current Diet Order/ Nutrition Support Renal diet Patient / S.O Not Indicated Pertinent Medications D50W, D5-0.45NS @50 ml/hr, Glucagon, Novolog Pertinent Labs (07/13) Na 134, BUN 48, Cr 2.9, glucose 41-137, Ca 8.2, BNP 515, albumin 2 Nutritional Hx/Data Height 1.73 m Height (Calculated Centimeters) 172.7 Current Weight (lbs) 113.852 kg Weight (Calculated Kilograms) 113.9 Weight (Calculated Grams) 625670.7 [place] Body Weight 140 % [place] Body Weight 179 Body Mass Index (BMI) 38.1 Recent Weight Change No Weight Status Morbidly Obese GI Symptoms GI Symptoms None Last BM 07/13 x 1 Difficult in: Chewing Food Allergies No Cultural/Ethnic/Sabianist Belief none indicated Usual diet at home unknown Skin Integrity/Comment: Arian 10, ulceration on sacrum, left lower leg, abrasion on L heel, scar on right leg. Current %PO Good (75-100%) Estimated Nutritional Goals BEE in Kcals: Adj wt of IBW Calories/Kcals/Kg 27-32 kcal/kg (using 76.2kg ADj wt) Kcals Calculated ~9543-1979 kcal/day Protein g/k.2-1.5 gm/kg using Adj wt Protein Calculated ~90-115 gm/day Fluid: ml Per MD due to HD Nutritional Problem 2. Problem Problem Altered nutrition related lab values related to Etiology episodes of hypoglycemia, electrolyte imbalance aeb Signs/Symptoms: Na 134, glucose 41-137, Ca 8.2 1. Problem Problem Increased nutrient needs related to Etiology hypermetabolic state, impaired skin integrity aeb Signs/Symptoms: Pt on Hemodialysis and with multiple ulcerations Intervention/Recommendation Comments 1. Continue Renal diet as tolerated by patient. No need for DM restriction at this time due to hypoglycemia. 2. Consider fluid restriction due to HD, hyponatremia and edema. 3. Consider adding Prosource 1 packet with each meal for an additional 45gm protein. Expected Outcomes/Goals Expected Outcomes/Goals Oral intake >75% of meals, weight stable or trend toward ideal body weight, nutrition related labs WNL
[2018-07-29] MEDS: Atorvastatin Calcium 10 MG TAB PO SCH (21:03)
[2018-07-30] MEDS: Albuterol/Ipratropium Neb 3 ML AERS HHN SCH ×4 (00:34→19:20)
[2018-07-30] MEDS: INSULIN ASPART SLIDING SCALE 100 UNITS/ML UNIT SUBQ SCH ×4 (05:54→20:49)
[2018-07-30] MEDS: Levothyroxine 0.025 Mg Tab PO SCH (06:43)
--- NOTE | 2018-07-30 07:54 | Diagnostic Imaging Report ---
Portable chest x-ray HISTORY: Shortness of breath Compared to prior exam of July 28, 2018, persistent density seen in the left lower hemithorax consistent with a small pleural effusion. Heart size difficult to assess with portable technique in a poor inspiration. IMPRESSION: 1. Little change with persistent density in the left lower hemithorax consistent with a small pleural effusion.
[2018-07-30] MEDS: Vitamin B Complex w/Vitamin C Tab PO SCH (08:19)
[2018-07-30] MEDS: Lactobacillus Rhamnosus GG 15 Billion CFU CAP.SPRINK PO SCH (08:19)
[2018-07-30] MEDS: Docusate Sodium 100 mg/10 mL UD PO SCH ×2 (10:07→17:00)
[2018-07-30] MEDS: Venelex 60gm Tube TP SCH (10:07)
--- NOTE | 2018-07-30 10:32 | General Progress Note ---
Subjective - Review of Systems Events since last encounter: patient in no distress seems comfortable Objective - Results Result Diagrams: 07/29/18 05:00 07/29/18 05:00 Recent Labs: Laboratory Last Values WBC 6.8 Th/cmm (4.8-10.8) 07/29/18 05:00 RBC 3.06 Mil/cmm (3.80-5.10) L 07/29/18 05:00 Hgb 8.7 gm/dL (12-16) L 07/29/18 05:00 Hct 26.7 % (41.0-60) L 07/29/18 05:00 MCV 87.3 fl (81-100) 07/29/18 05:00 MCH 28.6 pg (27.0-31.0) 07/29/18 05:00 MCHC Differential 32.8 pg (28.0-36.0) 07/29/18 05:00 RDW 16.8 % (11.5-20.0) 07/29/18 05:00 Plt Count 135 Th/cmm (150-400) L 07/29/18 05:00 MPV 7.4 fl 07/29/18 05:00 Add Manual Diff YES 07/28/18 04:20 Neutrophils % 51.6 % (40.0-80.0) 07/29/18 05:00 Band Neutrophils % 0 % (0-10) 07/28/18 04:20 Lymphocytes % 35.0 % (20.0-50.0) 07/29/18 05:00 Monocytes % 12.8 % (2.0-10.0) H 07/29/18 05:00 Eosinophils % 0.4 % (0.0-5.0) 07/29/18 05:00 Basophils % 0.2 % (0.0-2.0) 07/29/18 05:00 Neutrophils (Manual) 60 % (40-80) 07/28/18 04:20 Lymphocytes 30 % (20-50) 07/28/18 04:20 Monocytes 10 % (2-10) 07/28/18 04:20 Eosinophils 0 % (0-5) 07/28/18 04:20 Basophils 0 % (0-3) 07/28/18 04:20 Platelet Estimate DECREASED PLATELETS (NORMAL) 07/28/18 04:20 PT 17.0 SECONDS (9.5-11.5) H 07/28/18 04:20 INR 1.67 (0.5-1.4) H 07/28/18 04:20 PTT (Actin FS) 43.0 SECONDS (26.0-38.0) H 07/20/18 08:08 Specimen Source Arterial 07/23/18 17:00 Sample Site LB 07/23/18 17:00 pH 7.44 (7.35-7.45) 07/23/18 17:00 pCO2 44.0 mmHg (35.0-45.0) 07/23/18 17:00 pO2 86.0 mmHg (80.0-100.0) 07/23/18 17:00 HCO3 28.9 mEq/L (20.0-26.0) H 07/23/18 17:00 Base Excess 5.1 mEq/L (-3.0-3.0) H 07/23/18 17:00 O2 Saturation 97.0 % (92.0-100.0) 07/23/18 17:00 [place] Test NA 07/23/18 17:00 Vent Rate NA 07/23/18 17:00 Inspired O2 40 07/23/18 17:00 Tidal Volume NA 07/23/18 17:00 PEEP NA 07/23/18 17:00 Pressure (ins/psv/peep) NA 07/23/18 17:00 Critical Value E.QUINTEROS 07/23/18 17:00 Sodium 132 mEq/L (136-145) L 07/29/18 05:00 Potassium 4.5 mEq/L (3.5-5.1) 07/29/18 05:00 Chloride 102 mEq/L (98-107) 07/29/18 05:00 Carbon Dioxide 24.7 mEq/L (21.0-31.0) 07/29/18 05:00 Anion Gap 9.8 (7.0-16.0) 07/29/18 05:00 BUN 17 mg/dL (7-25) 07/29/18 05:00 Creatinine 3.0 mg/dL (0.6-1.2) H 07/29/18 05:00 Est GFR ( Amer) 21.2 ml/min (>90) 07/29/18 05:00 Est GFR (Non-Af Amer) 17.6 ml/min 07/29/18 05:00 BUN/Creatinine Ratio 5.7 07/29/18 05:00 Glucose 192 mg/dL (70-105) H 07/29/18 05:00 POC Glucose 174 MG/DL (70 - 105) H 07/30/18 05:51 Whole Bld Lactic Acid 1.29 mmol/L (0.60-1.99) 07/12/18 20:50 Calcium 8.8 mg/dL (8.6-10.3) 07/29/18 05:00 Magnesium 1.6 mg/dL (1.9-2.7) L 07/21/18 05:00 Total Bilirubin 0.3 mg/dL (0.3-1.0) 07/18/18 05:20 AST 18 U/L (13-39) 07/18/18 05:20 ALT 7 U/L (7-52) 07/18/18 05:20 Alkaline Phosphatase 80 U/L (34-104) 07/18/18 05:20 Creatine Kinase 20 U/L (30-223) L 07/12/18 20:50 Troponin I 0.49 ng/mL (0.01-0.05) H* 07/13/18 15:20 B-Natriuretic Peptide 515.0 pg/mL (5.0-100.0) H 07/13/18 04:00 Total Protein 4.0 gm/dL (6.0-8.3) L 07/18/18 05:20 Albumin < 1.5 gm/dL (3.7-5.3) L 07/18/18 05:20 Globulin 2.5 gm/dL 07/18/18 05:20 Albumin/Globulin Ratio 0.6 (1.0-1.8) L 07/18/18 05:20 Triglycerides 53 mg/dL (<150) 07/13/18 04:00 Cholesterol 41 mg/dL (<200) 07/13/18 04:00 LDL Cholesterol Direct 11 mg/dL (75-193) L 07/13/18 04:00 HDL Cholesterol 24 mg/dL (23-92) 07/13/18 04:00 TSH 1.21 uIU/ml (0.34-5.60) 07/13/18 04:00 Urine Source [place] 07/12/18 20:50 Urine Color YELLOW 07/12/18 20:50 Urine Clarity CLOUDY (CLEAR) H 07/12/18 20:50 Urine pH 8.5 (4.6 - 8.0) 07/12/18 20:50 Ur Specific [place] 1.015 (1.005-1.030) 07/12/18 20:50 Urine Protein 100 mg/dL (NEGATIVE) H 07/12/18 20:50 Urine Glucose (UA) NEGATIVE mg/dL (NEGATIVE) 07/12/18 20:50 Urine Ketones NEGATIVE mg/dL (NEGATIVE) 07/12/18 20:50 Urine Blood TRACE (NEGATIVE) 07/12/18 20:50 Urine Nitrate NEGATIVE (NEGATIVE) 07/12/18 20:50 Urine Bilirubin NEGATIVE (NEGATIVE) 07/12/18 20:50 Urine Urobilinogen 0.2 E.U./dL (0.2 - 1.0) 07/12/18 20:50 Ur Leukocyte Esterase LARGE (NEGATIVE) H 07/12/18 20:50 Urine RBC 2-5 /hpf (0-5) 07/12/18 20:50 Urine WBC >100 /hpf (0-5) H 07/12/18 20:50 Ur Epithelial Cells MODERATE /lpf (FEW) 07/12/18 20:50 Urine Bacteria MANY /hpf (NONE SEEN) H 07/12/18 20:50 Amikacin Peak 35.4 ug/mL (20.0-30.0) H 07/25/18 23:55 Amikacin Trough 14.1 ug/mL (1.0-8.0) H 07/25/18 20:30 Random Amikacin 14.8 ug/ml (1.0-30.0) 07/25/18 17:00 Random Vancomycin 25.5 ug/mL (5.0-40.0) 07/24/18 05:50 Crossmatch See Detail 07/28/18 07:30 - Physical Exam Vitals and I&O: Vital Signs Temp 97.8 F 07/30/18 04:00 Pulse 101 07/30/18 07:10 Resp 18 07/30/18 07:10 BP 98/41 07/30/18 04:00 Pulse Ox 99 07/30/18 07:10 Intake & Output 0907/30/18 07/30/18 18:59 06:59 18:59 Intake Total 700 200 Output Total 2890 220 Balance -2190 -20 Weight (lbs) 106.141 kg 105.233 kg Intake: Intake, IV Amount 100 100 Tigecycline 50 mg In 100 100 Sodium Chloride 0.9% 100 ml @ 100 mls/hr IV Q12HR [facility] Rx#:[id number] Oral 600 100 Output: Drainage 250 200 Sacrum 150 colostomy 100 200 Urine 40 20 Stool 100 Hemodialysis 2500 Other: Stool Characteristics Soft Soft Liquid Liquid Brown Brown Green Green Weight Source Bedscale Bedscale Active Medications: Current Medications Acetaminophen (Tylenol) 650 mg PO Q6H PRN PRN Reason: Mild Pain or Fever >101 Stop: 09/11/18 15:14 Acetaminophen/Hydrocodone Bitart ([place] 5mg/325mg) 1 tab PO Q4H PRN PRN Reason: Pain (Moderate) Stop: 09/27/18 14:34 Last Admin: 07/29/18 16:32 Dose: 1 tab Albuterol/Ipratropium (Duoneb Neb) 3 ml HHN Q4HRT PRN PRN Reason: Shortness of Breath or Wheeze Stop: 09/11/18 15:14 Albuterol/Ipratropium (Duoneb Neb) 3 ml HHN Q6HRT [facility] Stop: 09/21/18 18:59 Last Admin: 07/30/18 07:10 Dose: 3 ml Ascorbic Acid (Vitamin C) 500 mg PO DAILY [facility] Stop: 09/12/18 08:59 Last Admin: 07/30/18 08:19 Dose: 500 mg Atorvastatin Calcium (Lipitor) 20 mg PO HS [facility] Stop: 09/11/18 20:59 Last Admin: 07/29/18 21:03 Dose: 20 mg [place] Oil/Romanian Balsam/Trypsin (Venelex) 1 appl TP DAILY [facility] Stop: 09/13/18 08:59 Last Admin: 07/30/18 10:07 Dose: 1 appl Dextrose (Glutose 40%) 18.75 gm PO PRN PRN PRN Reason: Blood Glucose less than 70 Stop: 09/11/18 04:10 Docusate Sodium (Colace) 100 mg PO BID [facility] Stop: 09/11/18 16:59 Last Admin: 07/30/18 10:07 Dose: 100 mg Famotidine (Pepcid) 20 mg PO DAILY [facility] Stop: 09/12/18 08:59 Last Admin: 07/30/18 08:19 Dose: 20 mg Folic Acid (Folate) 1 mg PO DAILY [facility] Stop: 09/12/18 08:59 Last Admin: 07/30/18 08:19 Dose: 1 mg Glucagon (Glucagen) 1 mg IM PRN PRN PRN Reason: Blood Glucose less than 70 Stop: 09/11/18 04:10 Heparin Sodium (Porcine) (Heparin) 5,000 units SUBQ Q12HR [facility] Stop: 09/26/18 20:59 Last Admin: 07/30/18 08:20 Dose: 5,000 units Tigecycline 50 mg/ Sodium (Chloride) 100 mls @ 100 mls/hr IV Q12HR [facility] Stop: 09/17/18 19:44 Last Admin: 07/30/18 10:06 Dose: 100 mls/hr Norepinephrine Bitartrate 4 mg (/ Dextrose) 254 mls @ 38.1 mls/hr IV TITR PRN; Protocol PRN Reason: BP MAINTENANCE (PER PROTOCOL) Stop: 09/21/18 14:18 Last Titration: 07/24/18 04:10 Dose: 0 mcg/min, 0 mls/hr Insulin Aspart (Novolog Insulin Sliding Scale) 0 units SUBQ ACHS [facility]; Protocol Stop: 09/28/18 11:29 Lactobacillus Rhamnosus (Culturelle 15b) 1 each PO DAILY [facility] Stop: 09/13/18 13:59 Last Admin: 07/30/18 08:19 Dose: 1 each Levothyroxine Sodium (Synthroid) 0.025 mg PO QDAC [facility] Stop: 09/12/18 07:29 Last Admin: 07/30/18 06:43 Dose: 0.025 mg Miscellaneous (Probiotic Screen) 1 ea MC PRN PRN PRN Reason: PROTOCOL Stop: 09/13/18 11:44 Miscellaneous (Clinical Monitoring) 1 ea MC DAILY PRN PRN Reason: RENAL DOSING Stop: 09/27/18 08:38 Oxcarbazepine (Trileptal) 600 mg PO BID [facility] Stop: 09/11/18 16:59 Last Admin: 07/30/18 08:19 Dose: 600 mg Risperidone (Risperdal) 2 mg PO HS [facility] Stop: 09/11/18 20:59 Last Admin: 07/29/18 21:03 Dose: 2 mg Senna (Senna) 17.2 mg PO BID [facility] Stop: 09/11/18 16:59 Last Admin: 07/30/18 08:19 Dose: 17.2 mg Sevelamer Carbonate (Renvela) 800 mg PO TIDWM [facility] Stop: 09/11/18 16:59 Last Admin: 07/30/18 08:18 Dose: 800 mg Vitamin B Complex/Vit C/Folic Acid (Vitamin B Complex W/Vitamin C) 1 tab PO DAILY [facility] Stop: 09/12/18 08:59 Last Admin: 07/30/18 08:19 Dose: 1 tab Zinc Sulfate (Zinc Sulfate) 220 mg PO DAILY [facility] Stop: 09/12/18 08:59 Last Admin: 07/30/18 08:18 Dose: 220 mg General: Alert, Mild distress HEENT: Atraumatic, EOMI Neck: Supple, +2 carotid pulse wo bruit Cardiovascular: Regular rate, Normal S1, Normal S2 Lungs: Other (scattered rhonchi) Abdomen: Bowel sounds, Soft Extremities: Edema ((+) 2-3 edema), Other ((+) 2 bipedal edema) Neurological: Sensation intact Skin: no Rash Psych/Mental Status: Mood NL - Procedures Procedures: Procedures Procedure Code Date BYPASS DESCENDING COLON TO CUTANEOUS, OPEN APPROACH [id number] 07/12/18 EXCISION OF L LOW LEG SUBCU/FASCIA, OPEN APPROACH [id number] 07/12/18 EXCISION OF SACRUM, OPEN APPROACH [id number] 07/12/18 EXCISION OF SIGMOID COLON, OPEN APPROACH [id number] 07/12/18 RESPIRATORY VENTILATION, LESS THAN 24 CONSECUTIVE HOURS [id number] 07/12/18 Assessment/Plan - Problem List Patient Problems: All Active Problems Anasarca (Acute) R60.1 Anemia (Acute) D64.9 CAD (coronary artery disease) (Acute) I25.10 CHF (congestive heart failure) (Acute) I50.9 CKD (chronic kidney disease) (Acute) N18.9 HTN (hypertension) (Acute) I10 UTI (urinary tract infection) (Acute) sacral stage 4 wound (Acute) - Plan Plan: as per order sheet Nutritional Asmnt/Malnutr-PDOC - Dietary Evaluation Malnutrition Findings (Please click <Entered> for more info): Nutritional Asmnt/Malnutrition Start: 07/13/18 13: 54 Text: Status: Complete Freq: Protocol: Document 07/13/18 13:56 ALDAIR (Rec: 07/13/18 14:10 ALDAIR [id number]) Nutritional Asmnt/Malnutrition Patient General Information Nutritional Screening Consult Diagnosis ESRD, anasarca Pertinent Medical Hx/Surgical Hx Seizure, hep C, diabetes, CAD, HTN, CVA, quadreplegia, Parkinsons, ESRD Subjective Information Consult received for "Diabetic ". Per nursing notes, patient receives hemodialysis MWF and patient is non-verbal. Patient with 2+ pitting edema. Current Diet Order/ Nutrition Support Renal diet Patient / S.O Not Indicated Pertinent Medications D50W, D5-0.45NS @50 ml/hr, Glucagon, Novolog Pertinent Labs (07/13) Na 134, BUN 48, Cr 2.9, glucose 41-137, Ca 8.2, BNP 515, albumin 2 Nutritional Hx/Data Height 1.73 m Height (Calculated Centimeters) 172.7 Current Weight (lbs) 113.852 kg Weight (Calculated Kilograms) 113.9 Weight (Calculated Grams) 906237.7 [place] Body Weight 140 % [place] Body Weight 179 Body Mass Index (BMI) 38.1 Recent Weight Change No Weight Status Morbidly Obese GI Symptoms GI Symptoms None Last BM 07/13 x 1 Difficult in: Chewing Food Allergies No Cultural/Ethnic/Congregation Belief none indicated Usual diet at home unknown Skin Integrity/Comment: Arian 10, ulceration on sacrum, left lower leg, abrasion on L heel, scar on right leg. Current %PO Good (75-100%) Estimated Nutritional Goals BEE in Kcals: Adj wt of IBW Calories/Kcals/Kg 27-32 kcal/kg (using 76.2kg ADj wt) Kcals Calculated ~9921-3832 kcal/day Protein g/k.2-1.5 gm/kg using Adj wt Protein Calculated ~90-115 gm/day Fluid: ml Per MD due to HD Nutritional Problem 2. Problem Problem Altered nutrition related lab values related to Etiology episodes of hypoglycemia, electrolyte imbalance aeb Signs/Symptoms: Na 134, glucose 41-137, Ca 8.2 1. Problem Problem Increased nutrient needs related to Etiology hypermetabolic state, impaired skin integrity aeb Signs/Symptoms: Pt on Hemodialysis and with multiple ulcerations Intervention/Recommendation Comments 1. Continue Renal diet as tolerated by patient. No need for DM restriction at this time due to hypoglycemia. 2. Consider fluid restriction due to HD, hyponatremia and edema. 3. Consider adding Prosource 1 packet with each meal for an additional 45gm protein. Expected Outcomes/Goals Expected Outcomes/Goals Oral intake >75% of meals, weight stable or trend toward ideal body weight, nutrition related labs WNL
--- NOTE | 2018-07-30 11:10 | General Progress Note ---
Subjective - Review of Systems Service Date: 07/30/18 Events since last encounter: loves to eat colostomy functioning well incision clean and healig Objective - Results Result Diagrams: 07/29/18 05:00 07/29/18 05:00 Recent Labs: Laboratory Last Values WBC 6.8 Th/cmm (4.8-10.8) 07/29/18 05:00 RBC 3.06 Mil/cmm (3.80-5.10) L 07/29/18 05:00 Hgb 8.7 gm/dL (12-16) L 07/29/18 05:00 Hct 26.7 % (41.0-60) L 07/29/18 05:00 MCV 87.3 fl (81-100) 07/29/18 05:00 MCH 28.6 pg (27.0-31.0) 07/29/18 05:00 MCHC Differential 32.8 pg (28.0-36.0) 07/29/18 05:00 RDW 16.8 % (11.5-20.0) 07/29/18 05:00 Plt Count 135 Th/cmm (150-400) L 07/29/18 05:00 MPV 7.4 fl 07/29/18 05:00 Add Manual Diff YES 07/28/18 04:20 Neutrophils % 51.6 % (40.0-80.0) 07/29/18 05:00 Band Neutrophils % 0 % (0-10) 07/28/18 04:20 Lymphocytes % 35.0 % (20.0-50.0) 07/29/18 05:00 Monocytes % 12.8 % (2.0-10.0) H 07/29/18 05:00 Eosinophils % 0.4 % (0.0-5.0) 07/29/18 05:00 Basophils % 0.2 % (0.0-2.0) 07/29/18 05:00 Neutrophils (Manual) 60 % (40-80) 07/28/18 04:20 Lymphocytes 30 % (20-50) 07/28/18 04:20 Monocytes 10 % (2-10) 07/28/18 04:20 Eosinophils 0 % (0-5) 07/28/18 04:20 Basophils 0 % (0-3) 07/28/18 04:20 Platelet Estimate DECREASED PLATELETS (NORMAL) 07/28/18 04:20 PT 17.0 SECONDS (9.5-11.5) H 07/28/18 04:20 INR 1.67 (0.5-1.4) H 07/28/18 04:20 PTT (Actin FS) 43.0 SECONDS (26.0-38.0) H 07/20/18 08:08 Specimen Source Arterial 07/23/18 17:00 Sample Site LB 07/23/18 17:00 pH 7.44 (7.35-7.45) 07/23/18 17:00 pCO2 44.0 mmHg (35.0-45.0) 07/23/18 17:00 pO2 86.0 mmHg (80.0-100.0) 07/23/18 17:00 HCO3 28.9 mEq/L (20.0-26.0) H 07/23/18 17:00 Base Excess 5.1 mEq/L (-3.0-3.0) H 07/23/18 17:00 O2 Saturation 97.0 % (92.0-100.0) 07/23/18 17:00 [place] Test NA 07/23/18 17:00 Vent Rate NA 07/23/18 17:00 Inspired O2 40 07/23/18 17:00 Tidal Volume NA 07/23/18 17:00 PEEP NA 07/23/18 17:00 Pressure (ins/psv/peep) NA 07/23/18 17:00 Critical Value E.QUINTEROS 07/23/18 17:00 Sodium 132 mEq/L (136-145) L 07/29/18 05:00 Potassium 4.5 mEq/L (3.5-5.1) 07/29/18 05:00 Chloride 102 mEq/L (98-107) 07/29/18 05:00 Carbon Dioxide 24.7 mEq/L (21.0-31.0) 07/29/18 05:00 Anion Gap 9.8 (7.0-16.0) 07/29/18 05:00 BUN 17 mg/dL (7-25) 07/29/18 05:00 Creatinine 3.0 mg/dL (0.6-1.2) H 07/29/18 05:00 Est GFR ( Amer) 21.2 ml/min (>90) 07/29/18 05:00 Est GFR (Non-Af Amer) 17.6 ml/min 07/29/18 05:00 BUN/Creatinine Ratio 5.7 07/29/18 05:00 Glucose 192 mg/dL (70-105) H 07/29/18 05:00 POC Glucose 174 MG/DL (70 - 105) H 07/30/18 05:51 Whole Bld Lactic Acid 1.29 mmol/L (0.60-1.99) 07/12/18 20:50 Calcium 8.8 mg/dL (8.6-10.3) 07/29/18 05:00 Magnesium 1.6 mg/dL (1.9-2.7) L 07/21/18 05:00 Total Bilirubin 0.3 mg/dL (0.3-1.0) 07/18/18 05:20 AST 18 U/L (13-39) 07/18/18 05:20 ALT 7 U/L (7-52) 07/18/18 05:20 Alkaline Phosphatase 80 U/L (34-104) 07/18/18 05:20 Creatine Kinase 20 U/L (30-223) L 07/12/18 20:50 Troponin I 0.49 ng/mL (0.01-0.05) H* 07/13/18 15:20 B-Natriuretic Peptide 515.0 pg/mL (5.0-100.0) H 07/13/18 04:00 Total Protein 4.0 gm/dL (6.0-8.3) L 07/18/18 05:20 Albumin < 1.5 gm/dL (3.7-5.3) L 07/18/18 05:20 Globulin 2.5 gm/dL 07/18/18 05:20 Albumin/Globulin Ratio 0.6 (1.0-1.8) L 07/18/18 05:20 Triglycerides 53 mg/dL (<150) 07/13/18 04:00 Cholesterol 41 mg/dL (<200) 07/13/18 04:00 LDL Cholesterol Direct 11 mg/dL (75-193) L 07/13/18 04:00 HDL Cholesterol 24 mg/dL (23-92) 07/13/18 04:00 TSH 1.21 uIU/ml (0.34-5.60) 07/13/18 04:00 Urine Source [place] 07/12/18 20:50 Urine Color YELLOW 07/12/18 20:50 Urine Clarity CLOUDY (CLEAR) H 07/12/18 20:50 Urine pH 8.5 (4.6 - 8.0) 07/12/18 20:50 Ur Specific [place] 1.015 (1.005-1.030) 07/12/18 20:50 Urine Protein 100 mg/dL (NEGATIVE) H 07/12/18 20:50 Urine Glucose (UA) NEGATIVE mg/dL (NEGATIVE) 07/12/18 20:50 Urine Ketones NEGATIVE mg/dL (NEGATIVE) 07/12/18 20:50 Urine Blood TRACE (NEGATIVE) 07/12/18 20:50 Urine Nitrate NEGATIVE (NEGATIVE) 07/12/18 20:50 Urine Bilirubin NEGATIVE (NEGATIVE) 07/12/18 20:50 Urine Urobilinogen 0.2 E.U./dL (0.2 - 1.0) 07/12/18 20:50 Ur Leukocyte Esterase LARGE (NEGATIVE) H 07/12/18 20:50 Urine RBC 2-5 /hpf (0-5) 07/12/18 20:50 Urine WBC >100 /hpf (0-5) H 07/12/18 20:50 Ur Epithelial Cells MODERATE /lpf (FEW) 07/12/18 20:50 Urine Bacteria MANY /hpf (NONE SEEN) H 07/12/18 20:50 Amikacin Peak 35.4 ug/mL (20.0-30.0) H 07/25/18 23:55 Amikacin Trough 14.1 ug/mL (1.0-8.0) H 07/25/18 20:30 Random Amikacin 14.8 ug/ml (1.0-30.0) 07/25/18 17:00 Random Vancomycin 25.5 ug/mL (5.0-40.0) 07/24/18 05:50 Crossmatch See Detail 07/28/18 07:30 - Physical Exam Vitals and I&O: Vital Signs Temp 97.6 F 07/30/18 08:00 Pulse 87 07/30/18 08:00 Resp 16 07/30/18 08:00 BP 101/58 07/30/18 08:00 Pulse Ox 100 07/30/18 08:00 Intake & Output 07/29/18 07/30/18 07/30/18 18:59 06:59 18:59 Intake Total 700 200 Output Total 2890 220 Balance -2190 -20 Weight (lbs) 106.141 kg 105.233 kg Intake: Intake, IV Amount 100 100 Tigecycline 50 mg In 100 100 Sodium Chloride 0.9% 100 ml @ 100 mls/hr IV Q12HR [facility] Rx#:[id number] Oral 600 100 Output: Drainage 250 200 Sacrum 150 colostomy 100 200 Urine 40 20 Stool 100 Hemodialysis 2500 Other: Stool Characteristics Soft Soft Liquid Liquid Brown Brown Green Green Weight Source Bedscale Bedscale Active Medications: Current Medications Acetaminophen (Tylenol) 650 mg PO Q6H PRN PRN Reason: Mild Pain or Fever >101 Stop: 09/11/18 15:14 Acetaminophen/Hydrocodone Bitart ([place] 5mg/325mg) 1 tab PO Q4H PRN PRN Reason: Pain (Moderate) Stop: 09/27/18 14:34 Last Admin: 07/29/18 16:32 Dose: 1 tab Albuterol/Ipratropium (Duoneb Neb) 3 ml HHN Q4HRT PRN PRN Reason: Shortness of Breath or Wheeze Stop: 09/11/18 15:14 Albuterol/Ipratropium (Duoneb Neb) 3 ml HHN Q6HRT [facility] Stop: 09/21/18 18:59 Last Admin: 07/30/18 07:10 Dose: 3 ml Ascorbic Acid (Vitamin C) 500 mg PO DAILY [facility] Stop: 09/12/18 08:59 Last Admin: 07/30/18 08:19 Dose: 500 mg Atorvastatin Calcium (Lipitor) 20 mg PO HS [facility] Stop: 09/11/18 20:59 Last Admin: 07/29/18 21:03 Dose: 20 mg [place] Oil/Kittitian Balsam/Trypsin (Venelex) 1 appl TP DAILY [facility] Stop: 09/13/18 08:59 Last Admin: 07/30/18 10:07 Dose: 1 appl Dextrose (Glutose 40%) 18.75 gm PO PRN PRN PRN Reason: Blood Glucose less than 70 Stop: 09/11/18 04:10 Docusate Sodium (Colace) 100 mg PO BID [facility] Stop: 09/11/18 16:59 Last Admin: 07/30/18 10:07 Dose: 100 mg Famotidine (Pepcid) 20 mg PO DAILY [facility] Stop: 09/12/18 08:59 Last Admin: 07/30/18 08:19 Dose: 20 mg Folic Acid (Folate) 1 mg PO DAILY [facility] Stop: 09/12/18 08:59 Last Admin: 07/30/18 08:19 Dose: 1 mg Glucagon (Glucagen) 1 mg IM PRN PRN PRN Reason: Blood Glucose less than 70 Stop: 09/11/18 04:10 Heparin Sodium (Porcine) (Heparin) 5,000 units SUBQ Q12HR [facility] Stop: 09/26/18 20:59 Last Admin: 07/30/18 08:20 Dose: 5,000 units Tigecycline 50 mg/ Sodium (Chloride) 100 mls @ 100 mls/hr IV Q12HR [facility] Stop: 09/17/18 19:44 Last Admin: 07/30/18 10:06 Dose: 100 mls/hr Norepinephrine Bitartrate 4 mg (/ Dextrose) 254 mls @ 38.1 mls/hr IV TITR PRN; Protocol PRN Reason: BP MAINTENANCE (PER PROTOCOL) Stop: 09/21/18 14:18 Last Titration: 07/24/18 04:10 Dose: 0 mcg/min, 0 mls/hr Insulin Aspart (Novolog Insulin Sliding Scale) 0 units SUBQ ACHS [facility]; Protocol Stop: 09/28/18 11:29 Lactobacillus Rhamnosus (Culturelle 15b) 1 each PO DAILY [facility] Stop: 09/13/18 13:59 Last Admin: 07/30/18 08:19 Dose: 1 each Levothyroxine Sodium (Synthroid) 0.025 mg PO QDAC [facility] Stop: 09/12/18 07:29 Last Admin: 07/30/18 06:43 Dose: 0.025 mg Miscellaneous (Probiotic Screen) 1 ea MC PRN PRN PRN Reason: PROTOCOL Stop: 09/13/18 11:44 Miscellaneous (Clinical Monitoring) 1 ea MC DAILY PRN PRN Reason: RENAL DOSING Stop: 09/27/18 08:38 Oxcarbazepine (Trileptal) 600 mg PO BID [facility] Stop: 09/11/18 16:59 Last Admin: 09/20/18 08:19 Dose: 600 mg Risperidone (Risperdal) 2 mg PO HS [facility] Stop: 09/11/18 20:59 Last Admin: 07/29/18 21:03 Dose: 2 mg Senna (Senna) 17.2 mg PO BID [facility] Stop: 09/11/18 16:59 Last Admin: 07/30/18 08:19 Dose: 17.2 mg Sevelamer Carbonate (Renvela) 800 mg PO TIDWM [facility] Stop: 09/11/18 16:59 Last Admin: 07/30/18 08:18 Dose: 800 mg Vitamin B Complex/Vit C/Folic Acid (Vitamin B Complex W/Vitamin C) 1 tab PO DAILY [facility] Stop: 09/12/18 08:59 Last Admin: 07/30/18 08:19 Dose: 1 tab Zinc Sulfate (Zinc Sulfate) 220 mg PO DAILY [facility] Stop: 09/12/18 08:59 Last Admin: 07/30/18 08:18 Dose: 220 mg General: Alert, Mild distress HEENT: Atraumatic, EOMI Neck: Supple, +2 carotid pulse wo bruit Cardiovascular: Regular rate, Normal S1, Normal S2 Lungs: Other (scattered rhonchi) Abdomen: Bowel sounds, Soft Extremities: Edema ((+) 2-3 edema), Other ((+) 2 bipedal edema) Neurological: Sensation intact Skin: no Rash Psych/Mental Status: Mood NL - Procedures Procedures: Procedures Procedure Code Date BYPASS DESCENDING COLON TO CUTANEOUS, OPEN APPROACH [id number] 07/12/18 EXCISION OF L LOW LEG SUBCU/FASCIA, OPEN APPROACH [id number] 07/12/18 EXCISION OF SACRUM, OPEN APPROACH [id number] 07/12/18 EXCISION OF SIGMOID COLON, OPEN APPROACH [id number] 07/12/18 RESPIRATORY VENTILATION, LESS THAN 24 CONSECUTIVE HOURS [id number] 07/12/18 Assessment/Plan - Problem List Patient Problems: All Active Problems Anasarca (Acute) R60.1 Anemia (Acute) D64.9 CAD (coronary artery disease) (Acute) I25.10 CHF (congestive heart failure) (Acute) I50.9 CKD (chronic kidney disease) (Acute) N18.9 HTN (hypertension) (Acute) I10 UTI (urinary tract infection) (Acute) sacral stage 4 wound (Acute) Nutritional Asmnt/Malnutr-PDOC - Dietary Evaluation Malnutrition Findings (Please click <Entered> for more info): Nutritional Asmnt/Malnutrition Start: 07/13/18 13: 54 Text: Status: Complete Freq: Protocol: Document 07/13/18 13:56 ALDAIR (Rec: 07/13/18 14:10 ALDAIR [id number]) Nutritional Asmnt/Malnutrition Patient General Information Nutritional Screening Consult Diagnosis ESRD, anasarca Pertinent Medical Hx/Surgical Hx Seizure, hep C, diabetes, CAD, HTN, CVA, quadreplegia, Parkinsons, ESRD Subjective Information Consult received for "Diabetic ". Per nursing notes, patient receives hemodialysis MWF and patient is non-verbal. Patient with 2+ pitting edema. Current Diet Order/ Nutrition Support Renal diet Patient / S.O Not Indicated Pertinent Medications D50W, D5-0.45NS @50 ml/hr, Glucagon, Novolog Pertinent Labs (07/13) Na 134, BUN 48, Cr 2.9, glucose 41-137, Ca 8.2, BNP 515, albumin 2 Nutritional Hx/Data Height 1.73 m Height (Calculated Centimeters) 172.7 Current Weight (lbs) 113.852 kg Weight (Calculated Kilograms) 113.9 Weight (Calculated Grams) 314031.7 [place] Body Weight 140 % [place] Body Weight 179 Body Mass Index (BMI) 38.1 Recent Weight Change No Weight Status Morbidly Obese GI Symptoms GI Symptoms None Last BM 07/13 x 1 Difficult in: Chewing Food Allergies No Cultural/Ethnic/Restoration Belief none indicated Usual diet at home unknown Skin Integrity/Comment: Arian 10, ulceration on sacrum, left lower leg, abrasion on L heel, scar on right leg. Current %PO Good (75-100%) Estimated Nutritional Goals BEE in Kcals: Adj wt of IBW Calories/Kcals/Kg 27-32 kcal/kg (using 76.2kg ADj wt) Kcals Calculated ~3541-3907 kcal/day Protein g/k.2-1.5 gm/kg using Adj wt Protein Calculated ~90-115 gm/day Fluid: ml Per MD due to HD Nutritional Problem 2. Problem Problem Altered nutrition related lab values related to Etiology episodes of hypoglycemia, electrolyte imbalance aeb Signs/Symptoms: Na 134, glucose 41-137, Ca 8.2 1. Problem Problem Increased nutrient needs related to Etiology hypermetabolic state, impaired skin integrity aeb Signs/Symptoms: Pt on Hemodialysis and with multiple ulcerations Intervention/Recommendation Comments 1. Continue Renal diet as tolerated by patient. No need for DM restriction at this time due to hypoglycemia. 2. Consider fluid restriction due to HD, hyponatremia and edema. 3. Consider adding Prosource 1 packet with each meal for an additional 45gm protein. Expected Outcomes/Goals Expected Outcomes/Goals Oral intake >75% of meals, weight stable or trend toward ideal body weight, nutrition related labs WNL
--- NOTE | 2018-07-30 14:06 | General Progress Note ---
Subjective - Review of Systems Service Date: 07/30/18 Subjective: alert, comfortable, on puree diet Objective - Results Result Diagrams: 07/29/18 05:00 07/29/18 05:00 Recent Labs: Laboratory Last Values WBC 6.8 Th/cmm (4.8-10.8) 07/29/18 05:00 RBC 3.06 Mil/cmm (3.80-5.10) L 07/29/18 05:00 Hgb 8.7 gm/dL (12-16) L 07/29/18 05:00 Hct 26.7 % (41.0-60) L 07/29/18 05:00 MCV 87.3 fl (81-100) 07/29/18 05:00 MCH 28.6 pg (27.0-31.0) 07/29/18 05:00 MCHC Differential 32.8 pg (28.0-36.0) 07/29/18 05:00 RDW 16.8 % (11.5-20.0) 07/29/18 05:00 Plt Count 135 Th/cmm (150-400) L 07/29/18 05:00 MPV 7.4 fl 07/29/18 05:00 Add Manual Diff YES 07/28/18 04:20 Neutrophils % 51.6 % (40.0-80.0) 07/29/18 05:00 Band Neutrophils % 0 % (0-10) 07/28/18 04:20 Lymphocytes % 35.0 % (20.0-50.0) 07/29/18 05:00 Monocytes % 12.8 % (2.0-10.0) H 07/29/18 05:00 Eosinophils % 0.4 % (0.0-5.0) 07/29/18 05:00 Basophils % 0.2 % (0.0-2.0) 07/29/18 05:00 Neutrophils (Manual) 60 % (40-80) 07/28/18 04:20 Lymphocytes 30 % (20-50) 07/28/18 04:20 Monocytes 10 % (2-10) 07/28/18 04:20 Eosinophils 0 % (0-5) 07/28/18 04:20 Basophils 0 % (0-3) 07/28/18 04:20 Platelet Estimate DECREASED PLATELETS (NORMAL) 07/28/18 04:20 PT 17.0 SECONDS (9.5-11.5) H 07/28/18 04:20 INR 1.67 (0.5-1.4) H 07/28/18 04:20 PTT (Actin FS) 43.0 SECONDS (26.0-38.0) H 07/20/18 08:08 Specimen Source Arterial 07/23/18 17:00 Sample Site LB 07/23/18 17:00 pH 7.44 (7.35-7.45) 07/23/18 17:00 pCO2 44.0 mmHg (35.0-45.0) 07/23/18 17:00 pO2 86.0 mmHg (80.0-100.0) 07/23/18 17:00 HCO3 28.9 mEq/L (20.0-26.0) H 07/23/18 17:00 Base Excess 5.1 mEq/L (-3.0-3.0) H 07/23/18 17:00 O2 Saturation 97.0 % (92.0-100.0) 07/23/18 17:00 [place] Test NA 07/23/18 17:00 Vent Rate NA 07/23/18 17:00 Inspired O2 40 07/23/18 17:00 Tidal Volume NA 07/23/18 17:00 PEEP NA 07/23/18 17:00 Pressure (ins/psv/peep) NA 07/23/18 17:00 Critical Value E.QUINTEROS 07/23/18 17:00 Sodium 132 mEq/L (136-145) L 07/29/18 05:00 Potassium 4.5 mEq/L (3.5-5.1) 07/29/18 05:00 Chloride 102 mEq/L (98-107) 07/29/18 05:00 Carbon Dioxide 24.7 mEq/L (21.0-31.0) 07/29/18 05:00 Anion Gap 9.8 (7.0-16.0) 07/29/18 05:00 BUN 17 mg/dL (7-25) 07/29/18 05:00 Creatinine 3.0 mg/dL (0.6-1.2) H 07/29/18 05:00 Est GFR ( Amer) 21.2 ml/min (>90) 07/29/18 05:00 Est GFR (Non-Af Amer) 17.6 ml/min 07/29/18 05:00 BUN/Creatinine Ratio 5.7 07/29/18 05:00 Glucose 192 mg/dL (70-105) H 07/29/18 05:00 POC Glucose 223 MG/DL (70 - 105) H 07/30/18 11:33 Whole Bld Lactic Acid 1.29 mmol/L (0.60-1.99) 07/12/18 20:50 Calcium 8.8 mg/dL (8.6-10.3) 07/29/18 05:00 Magnesium 1.6 mg/dL (1.9-2.7) L 07/21/18 05:00 Total Bilirubin 0.3 mg/dL (0.3-1.0) 07/18/18 05:20 AST 18 U/L (13-39) 07/18/18 05:20 ALT 7 U/L (7-52) 07/18/18 05:20 Alkaline Phosphatase 80 U/L (34-104) 07/18/18 05:20 Creatine Kinase 20 U/L (30-223) L 07/12/18 20:50 Troponin I 0.49 ng/mL (0.01-0.05) H* 07/13/18 15:20 B-Natriuretic Peptide 515.0 pg/mL (5.0-100.0) H 07/13/18 04:00 Total Protein 4.0 gm/dL (6.0-8.3) L 07/18/18 05:20 Albumin < 1.5 gm/dL (3.7-5.3) L 07/18/18 05:20 Globulin 2.5 gm/dL 07/18/18 05:20 Albumin/Globulin Ratio 0.6 (1.0-1.8) L 07/18/18 05:20 Triglycerides 53 mg/dL (<150) 07/13/18 04:00 Cholesterol 41 mg/dL (<200) 07/13/18 04:00 LDL Cholesterol Direct 11 mg/dL (75-193) L 07/13/18 04:00 HDL Cholesterol 24 mg/dL (23-92) 07/13/18 04:00 TSH 1.21 uIU/ml (0.34-5.60) 07/13/18 04:00 Urine Source [place] 07/12/18 20:50 Urine Color YELLOW 07/12/18 20:50 Urine Clarity CLOUDY (CLEAR) H 07/12/18 20:50 Urine pH 8.5 (4.6 - 8.0) 07/12/18 20:50 Ur Specific [place] 1.015 (1.005-1.030) 07/12/18 20:50 Urine Protein 100 mg/dL (NEGATIVE) H 07/12/18 20:50 Urine Glucose (UA) NEGATIVE mg/dL (NEGATIVE) 07/12/18 20:50 Urine Ketones NEGATIVE mg/dL (NEGATIVE) 07/12/18 20:50 Urine Blood TRACE (NEGATIVE) 07/12/18 20:50 Urine Nitrate NEGATIVE (NEGATIVE) 07/12/18 20:50 Urine Bilirubin NEGATIVE (NEGATIVE) 07/12/18 20:50 Urine Urobilinogen 0.2 E.U./dL (0.2 - 1.0) 07/12/18 20:50 Ur Leukocyte Esterase LARGE (NEGATIVE) H 07/12/18 20:50 Urine RBC 2-5 /hpf (0-5) 07/12/18 20:50 Urine WBC >100 /hpf (0-5) H 07/12/18 20:50 Ur Epithelial Cells MODERATE /lpf (FEW) 07/12/18 20:50 Urine Bacteria MANY /hpf (NONE SEEN) H 07/12/18 20:50 Amikacin Peak 35.4 ug/mL (20.0-30.0) H 07/25/18 23:55 Amikacin Trough 14.1 ug/mL (1.0-8.0) H 07/25/18 20:30 Random Amikacin 14.8 ug/ml (1.0-30.0) 07/25/18 17:00 Random Vancomycin 25.5 ug/mL (5.0-40.0) 07/24/18 05:50 Crossmatch See Detail 07/28/18 07:30 - Physical Exam Vitals and I&O: Vital Signs Temp 97.8 F 07/30/18 12:00 Pulse 101 07/30/18 12:00 Resp 14 07/30/18 12:00 BP 124/55 07/30/18 12:00 Pulse Ox 100 07/30/18 12:00 Intake & Output 07/29/18 07/30/18 07/30/18 18:59 06:59 18:59 Intake Total 700 200 100 Output Total 2890 220 Balance -2190 -20 100 Weight (lbs) 106.141 kg 105.233 kg Intake: Intake, IV Amount 100 100 100 Tigecycline 50 mg In 100 100 100 Sodium Chloride 0.9% 100 ml @ 100 mls/hr IV Q12HR [facility] Rx#:[id number] Oral 600 100 Output: Drainage 250 200 Sacrum 150 colostomy 100 200 Urine 40 20 Stool 100 Hemodialysis 2500 Other: Stool Characteristics Soft Soft Liquid Liquid Brown Brown Green Green Weight Source Bedscale Bedscale Active Medications: Current Medications Acetaminophen (Tylenol) 650 mg PO Q6H PRN PRN Reason: Mild Pain or Fever >101 Stop: 09/11/18 15:14 Acetaminophen/Hydrocodone Bitart ([place] 5mg/325mg) 1 tab PO Q4H PRN PRN Reason: Pain (Moderate) Stop: 09/27/18 14:34 Last Admin: 07/29/18 16:32 Dose: 1 tab Albuterol/Ipratropium (Duoneb Neb) 3 ml HHN Q4HRT PRN PRN Reason: Shortness of Breath or Wheeze Stop: 09/11/18 15:14 Albuterol/Ipratropium (Duoneb Neb) 3 ml HHN Q6HRT [facility] Stop: 09/21/18 18:59 Last Admin: 07/30/18 07:10 Dose: 3 ml Ascorbic Acid (Vitamin C) 500 mg PO DAILY [facility] Stop: 09/12/18 08:59 Last Admin: 07/30/18 08:19 Dose: 500 mg Atorvastatin Calcium (Lipitor) 20 mg PO HS [facility] Stop: 09/11/18 20:59 Last Admin: 07/29/18 21:03 Dose: 20 mg [place] Oil/[place]inamese Balsam/Trypsin (Venelex) 1 appl TP DAILY [facility] Stop: 09/13/18 08:59 Last Admin: 07/30/18 10:07 Dose: 1 appl Dextrose (Glutose 40%) 18.75 gm PO PRN PRN PRN Reason: Blood Glucose less than 70 Stop: 09/11/18 04:10 Docusate Sodium (Colace) 100 mg PO BID [facility] Stop: 09/11/18 16:59 Last Admin: 07/30/18 10:07 Dose: 100 mg Famotidine (Pepcid) 20 mg PO DAILY [facility] Stop: 09/12/18 08:59 Last Admin: 07/30/18 08:19 Dose: 20 mg Folic Acid (Folate) 1 mg PO DAILY [facility] Stop: 09/12/18 08:59 Last Admin: 07/30/18 08:19 Dose: 1 mg Glucagon (Glucagen) 1 mg IM PRN PRN PRN Reason: Blood Glucose less than 70 Stop: 09/11/18 04:10 Heparin Sodium (Porcine) (Heparin) 5,000 units SUBQ Q12HR [facility] Stop: 09/26/18 20:59 Last Admin: 07/30/18 08:20 Dose: 5,000 units Tigecycline 50 mg/ Sodium (Chloride) 100 mls @ 100 mls/hr IV Q12HR [facility] Stop: 09/17/18 19:44 Last Infusion: 07/30/18 11:42 Dose: Infused Norepinephrine Bitartrate 4 mg (/ Dextrose) 254 mls @ 38.1 mls/hr IV TITR PRN; Protocol PRN Reason: BP MAINTENANCE (PER PROTOCOL) Stop: 09/21/18 14:18 Last Titration: 07/24/18 04:10 Dose: 0 mcg/min, 0 mls/hr Insulin Aspart (Novolog Insulin Sliding Scale) 0 units SUBQ ACHS [facility]; Protocol Stop: 09/28/18 11:29 Last Admin: 07/30/18 11:40 Dose: 4 units Lactobacillus Rhamnosus (Culturelle 15b) 1 each PO DAILY [facility] Stop: 09/13/18 13:59 Last Admin: 07/30/18 08:19 Dose: 1 each Levothyroxine Sodium (Synthroid) 0.025 mg PO QDAC [facility] Stop: 09/12/18 07:29 Last Admin: 07/30/18 06:43 Dose: 0.025 mg Miscellaneous (Probiotic Screen) 1 ea MC PRN PRN PRN Reason: PROTOCOL Stop: 09/13/18 11:44 Miscellaneous (Clinical Monitoring) 1 ea MC DAILY PRN PRN Reason: RENAL DOSING Stop: 09/27/18 08:38 Oxcarbazepine (Trileptal) 600 mg PO BID [facility] Stop: 09/11/18 16:59 Last Admin: 07/30/18 08:19 Dose: 600 mg Risperidone (Risperdal) 2 mg PO HS [facility] Stop: 09/11/18 20:59 Last Admin: 07/29/18 21:03 Dose: 2 mg Senna (Senna) 17.2 mg PO BID [facility] Stop: 09/11/18 16:59 Last Admin: 07/30/18 08:19 Dose: 17.2 mg Sevelamer Carbonate (Renvela) 800 mg PO TIDWM [facility] Stop: 09/11/18 16:59 Last Admin: 07/30/18 08:18 Dose: 800 mg Vitamin B Complex/Vit C/Folic Acid (Vitamin B Complex W/Vitamin C) 1 tab PO DAILY [facility] Stop: 09/12/18 08:59 Last Admin: 07/30/18 08:19 Dose: 1 tab Zinc Sulfate (Zinc Sulfate) 220 mg PO DAILY [facility] Stop: 09/12/18 08:59 Last Admin: 07/30/18 08:18 Dose: 220 mg General: Alert, Mild distress HEENT: Atraumatic, EOMI Neck: Supple, +2 carotid pulse wo bruit Cardiovascular: Regular rate, Normal S1, Normal S2 Lungs: Other (scattered rhonchi) Abdomen: Bowel sounds, Soft Extremities: Edema ((+) 2-3 edema), Other ((+) 2 bipedal edema) Neurological: Sensation intact Skin: no Rash Psych/Mental Status: Mood NL - Procedures Procedures: Procedures Procedure Code Date BYPASS DESCENDING COLON TO CUTANEOUS, OPEN APPROACH [id number] 07/12/18 EXCISION OF L LOW LEG SUBCU/FASCIA, OPEN APPROACH [id number] 07/12/18 EXCISION OF SACRUM, OPEN APPROACH [id number] 07/12/18 EXCISION OF SIGMOID COLON, OPEN APPROACH [id number] 07/12/18 RESPIRATORY VENTILATION, LESS THAN 24 CONSECUTIVE HOURS [id number] 07/12/18 Assessment/Plan - Problem List Patient Problems: All Active Problems Anasarca (Acute) R60.1 Anemia (Acute) D64.9 CAD (coronary artery disease) (Acute) I25.10 CHF (congestive heart failure) (Acute) I50.9 CKD (chronic kidney disease) (Acute) N18.9 HTN (hypertension) (Acute) I10 UTI (urinary tract infection) (Acute) sacral stage 4 wound (Acute) - Assessment Assessment: ESRD on HD Hypothyroid Parkinson Ds. Fnc Quad Hep B,C GERD Left Calf ulcer Sacral Decub ulcer stage 4, w/ wound vacuum Cholelithiasis B/L HAP w/ effusions Peripheral edema Left SFV DVT S/P Diverting Colostomy - Plan Plan: Lab - Result Diagrams 07/14/18 05:00 07/14/18 05:00 Current Medications Acetaminophen (Tylenol) 650 mg PO Q6H PRN PRN Reason: Pain or Fever >101 Stop: 09/11/18 15:14 Acetaminophen/Hydrocodone Bitart ([place] 5mg/325mg) 1 tab PO Q6H PRN PRN Reason: Pain (Severe) Stop: 09/11/18 15:14 Albuterol/Ipratropium (Duoneb Neb) 3 ml HHN Q4HRT PRN PRN Reason: Shortness of Breath or Wheeze Stop: 09/11/18 15:14 Ascorbic Acid (Vitamin C) 500 mg PO DAILY [facility] Stop: 09/12/18 08:59 Last Admin: 07/14/18 08:27 Dose: 500 mg Atorvastatin Calcium (Lipitor) 20 mg PO HS [facility] Stop: 09/11/18 20:59 Last Admin: 07/13/18 21:05 Dose: 20 mg Dextrose (D50w) 50 ml IVP PRN PRN PRN Reason: Blood Glucose less than 70 Stop: 09/11/18 04:10 Dextrose (Glutose 40%) 18.75 gm PO PRN PRN PRN Reason: Blood Glucose less than 70 Stop: 09/11/18 04:10 Docusate Sodium (Colace) 100 mg PO BID [facility] Stop: 09/11/18 16:59 Last Admin: 07/14/18 08:27 Dose: 100 mg Famotidine (Pepcid) 20 mg PO DAILY [facility] Stop: 09/12/18 08:59 Last Admin: 07/14/18 08:27 Dose: 20 mg Folic Acid (Folate) 1 mg PO DAILY [facility] Stop: 09/12/18 08:59 Last Admin: 07/14/18 08:27 Dose: 1 mg Glucagon (Glucagen) 1 mg IM PRN PRN PRN Reason: Blood Glucose less than 70 Stop: 09/11/18 04:10 Piperacillin Sod/Tazobactam (Sod 2.25 gm/ Sodium Chloride) 50 mls @ 100 mls/hr IV Q6H [facility] Stop: 09/11/18 05:59 Last Admin: 07/14/18 06:05 Dose: Not Given Dextrose/Sodium Chloride (D5-0.45ns) 1,000 mls @ 50 mls/hr IV .Q20H [facility] Stop: 09/11/18 02:29 Last Admin: 07/13/18 04:03 Dose: 50 mls/hr Insulin Aspart (Novolog Insulin Sliding Scale) 0 units SUBQ Q6HR [facility]; Protocol Stop: 09/11/18 05:59 Last Admin: 07/14/18 06:05 Dose: Not Given Levothyroxine Sodium (Synthroid) 0.025 mg PO QDAC [facility] Stop: 09/12/18 07:29 Last Admin: 07/14/18 06:35 Dose: 0.025 mg Miscellaneous (Vancomycin Iv Per Pharmacy) 1 ea MC PRN PRN PRN Reason: PROTOCOL Stop: 09/10/18 23:40 Oxcarbazepine (Trileptal) 600 mg PO BID [facility] Stop: 09/11/18 16:59 Last Admin: 07/14/18 08:27 Dose: 600 mg Risperidone (Risperdal) 2 mg PO HS [facility] Stop: 09/11/18 20:59 Last Admin: 07/13/18 21:05 Dose: 2 mg Senna (Senna) 17.2 mg PO BID [facility] Stop: 09/11/18 16:59 Last Admin: 07/14/18 08:27 Dose: 17.2 mg Sevelamer Carbonate (Renvela) 800 mg PO TIDWM [facility] Stop: 09/11/18 16:59 Last Admin: 07/14/18 08:27 Dose: 800 mg Temazepam (Restoril) 15 mg PO HS PRN; Protocol PRN Reason: Insomnia Stop: 09/11/18 15:14 Vitamin B Complex/Vit C/Folic Acid (Vitamin B Complex W/Vitamin C) 1 tab PO DAILY [facility] Stop: 09/12/18 08:59 Last Admin: 07/14/18 08:27 Dose: 1 tab Zinc Sulfate (Zinc Sulfate) 220 mg PO DAILY [facility] Stop: 09/12/18 08:59 Last Admin: 07/14/18 08:27 Dose: 220 m Lab - Result Diagrams 07/29/18 05:00 07/29/18 05:00 continue wound care Pt. had diverting colostomy CXR less congestion, effusion schedule for HD in am started on Puree diet Nutritional Asmnt/Malnutr-PDOC - Dietary Evaluation Malnutrition Findings (Please click <Entered> for more info): Nutritional Asmnt/Malnutrition Start: 07/13/18 13: 54 Text: Status: Complete Freq: Protocol: Document 07/13/18 13:56 ALDAIR (Rec: 07/13/18 14:10 [id number]- [id number]) Nutritional Asmnt/Malnutrition Patient General Information Nutritional Screening Consult Diagnosis ESRD, anasarca Pertinent Medical Hx/Surgical Hx Seizure, hep C, diabetes, CAD, HTN, CVA, quadreplegia, Parkinsons, ESRD Subjective Information Consult received for "Diabetic ". Per nursing notes, patient receives hemodialysis MWF and patient is non-verbal. Patient with 2+ pitting edema. Current Diet Order/ Nutrition Support Renal diet Patient / S.O Not Indicated Pertinent Medications D50W, D5-0.45NS @50 ml/hr, Glucagon, Novolog Pertinent Labs (07/13) Na 134, BUN 48, Cr 2.9, glucose 41-137, Ca 8.2, BNP 515, albumin 2 Nutritional Hx/Data Height 1.73 m Height (Calculated Centimeters) 172.7 Current Weight (lbs) 113.852 kg Weight (Calculated Kilograms) 113.9 Weight (Calculated Grams) 705383.7 [place] Body Weight 140 % [place] Body Weight 179 Body Mass Index (BMI) 38.1 Recent Weight Change No Weight Status Morbidly Obese GI Symptoms GI Symptoms None Last BM 07/13 x 1 Difficult in: Chewing Food Allergies No Cultural/Ethnic/Mosque Belief none indicated Usual diet at home unknown Skin Integrity/Comment: Arian 10, ulceration on sacrum, left lower leg, abrasion on L heel, scar on right leg. Current %PO Good (75-100%) Estimated Nutritional Goals BEE in Kcals: Adj wt of IBW Calories/Kcals/Kg 27-32 kcal/kg (using 76.2kg ADj wt) Kcals Calculated ~6735-8718 kcal/day Protein g/k.2-1.5 gm/kg using Adj wt Protein Calculated ~90-115 gm/day Fluid: ml Per MD due to HD Nutritional Problem 2. Problem Problem Altered nutrition related lab values related to Etiology episodes of hypoglycemia, electrolyte imbalance aeb Signs/Symptoms: Na 134, glucose 41-137, Ca 8.2 1. Problem Problem Increased nutrient needs related to Etiology hypermetabolic state, impaired skin integrity aeb Signs/Symptoms: Pt on Hemodialysis and with multiple ulcerations Intervention/Recommendation Comments 1. Continue Renal diet as tolerated by patient. No need for DM restriction at this time due to hypoglycemia. 2. Consider fluid restriction due to HD, hyponatremia and edema. 3. Consider adding Prosource 1 packet with each meal for an additional 45gm protein. Expected Outcomes/Goals Expected Outcomes/Goals Oral intake >75% of meals, weight stable or trend toward ideal body weight, nutrition related labs WNL
[2018-07-30] MEDS: Atorvastatin Calcium 10 MG TAB PO SCH (20:41)
--- NOTE | 2018-07-30 23:40 | Infectious Disease Prog Note ---
Infectious Disease Subjective - Review of Systems Service Date: 07/30/18 Subjective: s/p Debridement of sacral wound and diverting colostomy Infectious Disease Objective - Results Result Diagrams: 07/31/18 09:45 07/31/18 09:45 Recent Labs: Laboratory Last Values WBC 6.8 Th/cmm (4.8-10.8) 07/29/18 05:00 RBC 3.06 Mil/cmm (3.80-5.10) L 07/29/18 05:00 Hgb 8.7 gm/dL (12-16) L 07/29/18 05:00 Hct 26.7 % (41.0-60) L 07/29/18 05:00 MCV 87.3 fl (81-100) 07/29/18 05:00 MCH 28.6 pg (27.0-31.0) 07/29/18 05:00 MCHC Differential 32.8 pg (28.0-36.0) 07/29/18 05:00 RDW 16.8 % (11.5-20.0) 07/29/18 05:00 Plt Count 135 Th/cmm (150-400) L 07/29/18 05:00 MPV 7.4 fl 07/29/18 05:00 Add Manual Diff YES 07/28/18 04:20 Neutrophils % 51.6 % (40.0-80.0) 07/29/18 05:00 Band Neutrophils % 0 % (0-10) 07/28/18 04:20 Lymphocytes % 35.0 % (20.0-50.0) 07/29/18 05:00 Monocytes % 12.8 % (2.0-10.0) H 07/29/18 05:00 Eosinophils % 0.4 % (0.0-5.0) 07/29/18 05:00 Basophils % 0.2 % (0.0-2.0) 07/29/18 05:00 Neutrophils (Manual) 60 % (40-80) 07/28/18 04:20 Lymphocytes 30 % (20-50) 07/28/18 04:20 Monocytes 10 % (2-10) 07/28/18 04:20 Eosinophils 0 % (0-5) 07/28/18 04:20 Basophils 0 % (0-3) 07/28/18 04:20 Platelet Estimate DECREASED PLATELETS (NORMAL) 07/28/18 04:20 PT 17.0 SECONDS (9.5-11.5) H 07/28/18 04:20 INR 1.67 (0.5-1.4) H 07/28/18 04:20 PTT (Actin FS) 43.0 SECONDS (26.0-38.0) H 07/20/18 08:08 Specimen Source Arterial 07/23/18 17:00 Sample Site LB 07/23/18 17:00 pH 7.44 (7.35-7.45) 07/23/18 17:00 pCO2 44.0 mmHg (35.0-45.0) 07/23/18 17:00 pO2 86.0 mmHg (80.0-100.0) 07/23/18 17:00 HCO3 28.9 mEq/L (20.0-26.0) H 07/23/18 17:00 Base Excess 5.1 mEq/L (-3.0-3.0) H 07/23/18 17:00 O2 Saturation 97.0 % (92.0-100.0) 07/23/18 17:00 [place] Test NA 07/23/18 17:00 Vent Rate NA 07/23/18 17:00 Inspired O2 40 07/23/18 17:00 Tidal Volume NA 07/23/18 17:00 PEEP NA 07/23/18 17:00 Pressure (ins/psv/peep) NA 07/23/18 17:00 Critical Value E.QUINTEROS 07/23/18 17:00 Sodium 132 mEq/L (136-145) L 07/29/18 05:00 Potassium 4.5 mEq/L (3.5-5.1) 07/29/18 05:00 Chloride 102 mEq/L (98-107) 07/29/18 05:00 Carbon Dioxide 24.7 mEq/L (21.0-31.0) 07/29/18 05:00 Anion Gap 9.8 (7.0-16.0) 07/29/18 05:00 BUN 17 mg/dL (7-25) 07/29/18 05:00 Creatinine 3.0 mg/dL (0.6-1.2) H 07/29/18 05:00 Est GFR ( Amer) 21.2 ml/min (>90) 07/29/18 05:00 Est GFR (Non-Af Amer) 17.6 ml/min 07/29/18 05:00 BUN/Creatinine Ratio 5.7 07/29/18 05:00 Glucose 192 mg/dL (70-105) H 07/29/18 05:00 POC Glucose 113 MG/DL (70 - 105) H 07/30/18 20:32 Whole Bld Lactic Acid 1.29 mmol/L (0.60-1.99) 07/12/18 20:50 Calcium 8.8 mg/dL (8.6-10.3) 07/29/18 05:00 Magnesium 1.6 mg/dL (1.9-2.7) L 07/21/18 05:00 Total Bilirubin 0.3 mg/dL (0.3-1.0) 07/18/18 05:20 AST 18 U/L (13-39) 07/18/18 05:20 ALT 7 U/L (7-52) 07/18/18 05:20 Alkaline Phosphatase 80 U/L (34-104) 07/18/18 05:20 Creatine Kinase 20 U/L (30-223) L 07/12/18 20:50 Troponin I 0.49 ng/mL (0.01-0.05) H* 07/13/18 15:20 B-Natriuretic Peptide 515.0 pg/mL (5.0-100.0) H 07/13/18 04:00 Total Protein 4.0 gm/dL (6.0-8.3) L 07/18/18 05:20 Albumin < 1.5 gm/dL (3.7-5.3) L 07/18/18 05:20 Globulin 2.5 gm/dL 07/18/18 05:20 Albumin/Globulin Ratio 0.6 (1.0-1.8) L 07/18/18 05:20 Triglycerides 53 mg/dL (<150) 07/13/18 04:00 Cholesterol 41 mg/dL (<200) 07/13/18 04:00 LDL Cholesterol Direct 11 mg/dL (75-193) L 07/13/18 04:00 HDL Cholesterol 24 mg/dL (23-92) 07/13/18 04:00 TSH 1.21 uIU/ml (0.34-5.60) 07/13/18 04:00 Urine Source [place] 07/12/18 20:50 Urine Color YELLOW 07/12/18 20:50 Urine Clarity CLOUDY (CLEAR) H 07/12/18 20:50 Urine pH 8.5 (4.6 - 8.0) 07/12/18 20:50 Ur Specific [place] 1.015 (1.005-1.030) 07/12/18 20:50 Urine Protein 100 mg/dL (NEGATIVE) H 07/12/18 20:50 Urine Glucose (UA) NEGATIVE mg/dL (NEGATIVE) 07/12/18 20:50 Urine Ketones NEGATIVE mg/dL (NEGATIVE) 07/12/18 20:50 Urine Blood TRACE (NEGATIVE) 07/12/18 20:50 Urine Nitrate NEGATIVE (NEGATIVE) 07/12/18 20:50 Urine Bilirubin NEGATIVE (NEGATIVE) 07/12/18 20:50 Urine Urobilinogen 0.2 E.U./dL (0.2 - 1.0) 07/12/18 20:50 Ur Leukocyte Esterase LARGE (NEGATIVE) H 07/12/18 20:50 Urine RBC 2-5 /hpf (0-5) 07/12/18 20:50 Urine WBC >100 /hpf (0-5) H 07/12/18 20:50 Ur Epithelial Cells MODERATE /lpf (FEW) 07/12/18 20:50 Urine Bacteria MANY /hpf (NONE SEEN) H 07/12/18 20:50 Amikacin Peak 35.4 ug/mL (20.0-30.0) H 07/25/18 23:55 Amikacin Trough 14.1 ug/mL (1.0-8.0) H 07/25/18 20:30 Random Amikacin 14.8 ug/ml (1.0-30.0) 07/25/18 17:00 Random Vancomycin 25.5 ug/mL (5.0-40.0) 07/24/18 05:50 Crossmatch See Detail 07/28/18 07:30 - Physical Exam Vitals and I&O: Vital Signs Temp 97.5 F 07/30/18 20:00 Pulse 102 07/30/18 20:00 Resp 22 07/30/18 20:00 BP 104/47 07/30/18 20:00 Pulse Ox 98 07/30/18 20:00 Intake & Output 07/30/18 07/30/18 07/31/18 06:59 18:59 06:59 Intake Total 200 450 Output Total 220 75 Balance -20 375 Weight (lbs) 105.233 kg 105.829 kg Intake: Intake, IV Amount 100 100 Tigecycline 50 mg In 100 100 Sodium Chloride 0.9% 100 ml @ 100 mls/hr IV Q12HR [facility] Rx#:[id number] Oral 100 250 Other 100 Output: Drainage 200 75 Sacrum 75 colostomy 200 Urine 20 Other: # Bowel Movements 1 Stool Characteristics Soft Soft Soft Liquid Liquid Liquid Brown Brown Brown Green Green Green Weight Source Bedscale Bedscale Active Medications: Current Medications Acetaminophen (Tylenol) 650 mg PO Q6H PRN PRN Reason: Mild Pain or Fever >101 Stop: 09/11/18 15:14 Acetaminophen/Hydrocodone Bitart ([place] 5mg/325mg) 1 tab PO Q4H PRN PRN Reason: Pain (Moderate) Stop: 09/27/18 14:34 Last Admin: 07/29/18 16:32 Dose: 1 tab Albuterol/Ipratropium (Duoneb Neb) 3 ml HHN Q4HRT PRN PRN Reason: Shortness of Breath or Wheeze Stop: 09/11/18 15:14 Albuterol/Ipratropium (Duoneb Neb) 3 ml HHN Q6HRT [facility] Stop: 09/21/18 18:59 Last Admin: 07/30/18 19:20 Dose: 3 ml Ascorbic Acid (Vitamin C) 500 mg PO DAILY [facility] Stop: 09/12/18 08:59 Last Admin: 07/30/18 08:19 Dose: 500 mg Atorvastatin Calcium (Lipitor) 20 mg PO HS [facility] Stop: 09/11/18 20:59 Last Admin: 07/30/18 20:41 Dose: 20 mg [place] Oil/[place] Balsam/Trypsin (Venelex) 1 appl TP DAILY [facility] Stop: 09/13/18 08:59 Last Admin: 07/30/18 10:07 Dose: 1 appl Dextrose (Glutose 40%) 18.75 gm PO PRN PRN PRN Reason: Blood Glucose less than 70 Stop: 09/11/18 04:10 Docusate Sodium (Colace) 100 mg PO BID [facility] Stop: 09/11/18 16:59 Last Admin: 07/30/18 17:00 Dose: 100 mg Famotidine (Pepcid) 20 mg PO DAILY [facility] Stop: 09/12/18 08:59 Last Admin: 07/30/18 08:19 Dose: 20 mg Folic Acid (Folate) 1 mg PO DAILY [facility] Stop: 09/12/18 08:59 Last Admin: 07/30/18 08:19 Dose: 1 mg Glucagon (Glucagen) 1 mg IM PRN PRN PRN Reason: Blood Glucose less than 70 Stop: 09/11/18 04:10 Heparin Sodium (Porcine) (Heparin) 5,000 units SUBQ Q12HR [facility] Stop: 09/26/18 20:59 Last Admin: 07/30/18 20:41 Dose: 5,000 units Tigecycline 50 mg/ Sodium (Chloride) 100 mls @ 100 mls/hr IV Q12HR [facility] Stop: 09/17/18 19:44 Last Admin: 07/30/18 20:40 Dose: 100 mls/hr Norepinephrine Bitartrate 4 mg (/ Dextrose) 254 mls @ 38.1 mls/hr IV TITR PRN; Protocol PRN Reason: BP MAINTENANCE (PER PROTOCOL) Stop: 09/21/18 14:18 Last Titration: 07/24/18 04:10 Dose: 0 mcg/min, 0 mls/hr Insulin Aspart (Novolog Insulin Sliding Scale) 0 units SUBQ ACHS [facility]; Protocol Stop: 09/28/18 11:29 Last Admin: 07/30/18 20:49 Dose: Not Given Lactobacillus Rhamnosus (Culturelle 15b) 1 each PO DAILY [facility] Stop: 09/13/18 13:59 Last Admin: 07/30/18 08:19 Dose: 1 each Levothyroxine Sodium (Synthroid) 0.025 mg PO QDAC [facility] Stop: 09/12/18 07:29 Last Admin: 07/30/18 06:43 Dose: 0.025 mg Miscellaneous (Probiotic Screen) 1 ea MC PRN PRN PRN Reason: PROTOCOL Stop: 09/13/18 11:44 Miscellaneous (Clinical Monitoring) 1 ea MC DAILY PRN PRN Reason: RENAL DOSING Stop: 09/27/18 08:38 Oxcarbazepine (Trileptal) 600 mg PO BID [facility] Stop: 09/11/18 16:59 Last Admin: 07/30/18 17:00 Dose: 600 mg Risperidone (Risperdal) 2 mg PO HS [facility] Stop: 09/11/18 20:59 Last Admin: 07/30/18 20:41 Dose: 2 mg Senna (Senna) 17.2 mg PO BID [facility] Stop: 09/11/18 16:59 Last Admin: 07/30/18 17:00 Dose: 17.2 mg Sevelamer Carbonate (Renvela) 800 mg PO TIDWM [facility] Stop: 09/11/18 16:59 Last Admin: 07/30/18 17:00 Dose: 800 mg Vitamin B Complex/Vit C/Folic Acid (Vitamin B Complex W/Vitamin C) 1 tab PO DAILY [facility] Stop: 09/12/18 08:59 Last Admin: 07/30/18 08:19 Dose: 1 tab Zinc Sulfate (Zinc Sulfate) 220 mg PO DAILY [facility] Stop: 09/12/18 08:59 Last Admin: 07/30/18 08:18 Dose: 220 mg - Procedures Procedures: Procedures Procedure Code Date BYPASS DESCENDING COLON TO CUTANEOUS, OPEN APPROACH [id number] 07/12/18 EXCISION OF L LOW LEG SUBCU/FASCIA, OPEN APPROACH [id number] 07/12/18 EXCISION OF SACRUM, OPEN APPROACH [id number] 07/12/18 EXCISION OF SIGMOID COLON, OPEN APPROACH [id number] 07/12/18 RESPIRATORY VENTILATION, LESS THAN 24 CONSECUTIVE HOURS [id number] 07/12/18 Infectious Disease Assmt/Plan - Problem List Patient Problems: All Active Problems Anasarca (Acute) R60.1 Anemia (Acute) D64.9 CAD (coronary artery disease) (Acute) I25.10 CHF (congestive heart failure) (Acute) I50.9 CKD (chronic kidney disease) (Acute) N18.9 HTN (hypertension) (Acute) I10 UTI (urinary tract infection) (Acute) sacral stage 4 wound (Acute) - Assessment Assessment: 1. UTI 2. Staph CN in blood contaminant. 3. Hypoglycemia. 4. Diabetes mellitus type 1 with episodes of hypoglycemia. 5. Hypertension. 6. Anemia of chronic disease. 7. Coronary artery disease, 8. CHF.. 9. Anasarca 10. 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 11. sacral stage 4 wound. No evidence of osteimyelitis, 12. S/p Diverting colostomy. - Plan Plan: Continue tygacil for 7 days till tomorrow am. dc amikacin. wound care. Nutritional Asmnt/Malnutr-PDOC - Dietary Evaluation Malnutrition Findings (Please click <Entered> for more info): Nutritional Asmnt/Malnutrition Start: 07/13/18 13: 54 Text: Status: Complete Freq: Protocol: Document 07/13/18 13:56 MMULNACHO (Rec: 07/13/18 14:10 [email or web address] NASH- [id number]) Nutritional Asmnt/Malnutrition Patient General Information Nutritional Screening Consult Diagnosis ESRD, anasarca Pertinent Medical Hx/Surgical Hx Seizure, hep C, diabetes, CAD, HTN, CVA, quadreplegia, Parkinsons, ESRD Subjective Information Consult received for "Diabetic ". Per nursing notes, patient receives hemodialysis MWF and patient is non-verbal. Patient with 2+ pitting edema. Current Diet Order/ Nutrition Support Renal diet Patient / S.O Not Indicated Pertinent Medications D50W, D5-0.45NS @50 ml/hr, Glucagon, Novolog Pertinent Labs (07/13) Na 134, BUN 48, Cr 2.9, glucose 41-137, Ca 8.2, BNP 515, albumin 2 Nutritional Hx/Data Height 1.73 m Height (Calculated Centimeters) 172.7 Current Weight (lbs) 113.852 kg Weight (Calculated Kilograms) 113.9 Weight (Calculated Grams) 487292.7 [place] Body Weight 140 % [place] Body Weight 179 Body Mass Index (BMI) 38.1 Recent Weight Change No Weight Status Morbidly Obese GI Symptoms GI Symptoms None Last BM 07/13 x 1 Difficult in: Chewing Food Allergies No Cultural/Ethnic/Mandaen Belief none indicated Usual diet at home unknown Skin Integrity/Comment: Arian 10, ulceration on sacrum, left lower leg, abrasion on L heel, scar on right leg. Current %PO Good (75-100%) Estimated Nutritional Goals BEE in Kcals: Adj wt of IBW Calories/Kcals/Kg 27-32 kcal/kg (using 76.2kg ADj wt) Kcals Calculated ~7264-4231 kcal/day Protein g/k.2-1.5 gm/kg using Adj wt Protein Calculated ~90-115 gm/day Fluid: ml Per MD due to HD Nutritional Problem 2. Problem Problem Altered nutrition related lab values related to Etiology episodes of hypoglycemia, electrolyte imbalance aeb Signs/Symptoms: Na 134, glucose 41-137, Ca 8.2 1. Problem Problem Increased nutrient needs related to Etiology hypermetabolic state, impaired skin integrity aeb Signs/Symptoms: Pt on Hemodialysis and with multiple ulcerations Intervention/Recommendation Comments 1. Continue Renal diet as tolerated by patient. No need for DM restriction at this time due to hypoglycemia. 2. Consider fluid restriction due to HD, hyponatremia and edema. 3. Consider adding Prosource 1 packet with each meal for an additional 45gm protein. Expected Outcomes/Goals Expected Outcomes/Goals Oral intake >75% of meals, weight stable or trend toward ideal body weight, nutrition related labs WNL
[2018-07-31] MEDS: Albuterol/Ipratropium Neb 3 ML AERS HHN SCH ×4 (00:11→19:59)
[2018-07-31] MEDS: Hydrocodone/APAP 5mg/325mg Tab PO PRN ×3 (04:12→21:53)
[2018-07-31] MEDS: INSULIN ASPART SLIDING SCALE 100 UNITS/ML UNIT SUBQ SCH ×4 (06:47→20:42)
[2018-07-31] MEDS: Levothyroxine 0.025 Mg Tab PO SCH (06:47)
[2018-07-31] MEDS ORDERED: Heparin Sodium 1,000 Units/mL Vial HD ONE (09:35)
[2018-07-31 09:57] LABS: % BASOPHILS 0.9 % (0.0-2.0); % EOSINOPHILS 0.5 % (0.0-5.0); % LYMPHOCYTES 34.3 % (20.0-50.0); % MONOCYTES 11.9 % (2.0-10.0); % NEUTROPHILS 52.4 % (40.0-80.0); HEMATOCRIT 23.4 % (41.0-60); LYMPHOCYTE ABSOLUTE 1.7 Th/cmm (1.5-3.0); MEAN CELL VOLUME 87.4 fl (81-100); MEAN CORPUSCULAR HEMOGLOBIN 29.1 pg (27.0-31.0); MEAN CORPUSCULAR HGB CONC 33.3 pg (28.0-36.0); MEAN PLATELET VOLUME 7.2 fl; MONOCYTE ABSOLUTE 0.6 Th/cmm (0.3-1.0); NEUTROPHILE ABSOLUTE 2.7 Th/cmm (1.8-8.0); PLATELET COUNT 144 Th/cmm (150-400); RED BLOOD COUNT 2.68 Mil/cmm (3.80-5.10); RED CELL DISTRIBUTION WIDTH 16.9 % (11.5-20.0)
[2018-07-31 10:02] LABS: ANION GAP 7.1 (7.0-16.0); CALCIUM SERUM 8.3 mg/dL (8.6-10.3); CARBON DIOXIDE 27.5 mEq/L (21.0-31.0); CREATININE - SERUM 2.4 mg/dL (0.6-1.2); GFR AFRICAN-AMERICAN 27.5 ml/min (>90); GFR NON AFRICAN-AMERICAN 22.7 ml/min; POTASSIUM SERUM 3.6 mEq/L (3.5-5.1)
[2018-07-31 10:03] LABS: HEMOGLOBIN 7.8 gm/dL (12-16)
[2018-07-31] MEDS: Docusate Sodium 100 mg/10 mL UD PO SCH ×2 (10:10→16:53)
[2018-07-31] MEDS: Vitamin B Complex w/Vitamin C Tab PO SCH (10:10)
[2018-07-31] MEDS: Lactobacillus Rhamnosus GG 15 Billion CFU CAP.SPRINK PO SCH (10:11)
[2018-07-31] MEDS: Venelex 60gm Tube TP SCH (10:12)
--- NOTE | 2018-07-31 12:32 | General Progress Note ---
Subjective - Review of Systems Service Date: 07/31/18 Subjective: alert, comfortable, on puree diet Objective - Results Result Diagrams: 07/31/18 09:45 07/31/18 09:45 Recent Labs: Laboratory Last Values WBC 5.0 Th/cmm (4.8-10.8) 07/31/18 09:45 RBC 2.68 Mil/cmm (3.80-5.10) L 07/31/18 09:45 Hgb 7.8 gm/dL (12-16) L* 07/31/18 09:45 Hct 23.4 % (41.0-60) L 07/31/18 09:45 MCV 87.4 fl (81-100) 07/31/18 09:45 MCH 29.1 pg (27.0-31.0) 07/31/18 09:45 MCHC Differential 33.3 pg (28.0-36.0) 07/31/18 09:45 RDW 16.9 % (11.5-20.0) 07/31/18 09:45 Plt Count 144 Th/cmm (150-400) L 07/31/18 09:45 MPV 7.2 fl 07/31/18 09:45 Add Manual Diff YES 07/28/18 04:20 Neutrophils % 52.4 % (40.0-80.0) 07/31/18 09:45 Band Neutrophils % 0 % (0-10) 07/28/18 04:20 Lymphocytes % 34.3 % (20.0-50.0) 07/31/18 09:45 Monocytes % 11.9 % (2.0-10.0) H 07/31/18 09:45 Eosinophils % 0.5 % (0.0-5.0) 07/31/18 09:45 Basophils % 0.9 % (0.0-2.0) 07/31/18 09:45 Neutrophils (Manual) 60 % (40-80) 07/28/18 04:20 Lymphocytes 30 % (20-50) 07/28/18 04:20 Monocytes 10 % (2-10) 07/28/18 04:20 Eosinophils 0 % (0-5) 07/28/18 04:20 Basophils 0 % (0-3) 07/28/18 04:20 Platelet Estimate DECREASED PLATELETS (NORMAL) 07/28/18 04:20 PT 17.0 SECONDS (9.5-11.5) H 07/28/18 04:20 INR 1.67 (0.5-1.4) H 07/28/18 04:20 PTT (Actin FS) 43.0 SECONDS (26.0-38.0) H 07/20/18 08:08 Specimen Source Arterial 07/23/18 17:00 Sample Site LB 07/23/18 17:00 pH 7.44 (7.35-7.45) 07/23/18 17:00 pCO2 44.0 mmHg (35.0-45.0) 07/23/18 17:00 pO2 86.0 mmHg (80.0-100.0) 07/23/18 17:00 HCO3 28.9 mEq/L (20.0-26.0) H 07/23/18 17:00 Base Excess 5.1 mEq/L (-3.0-3.0) H 07/23/18 17:00 O2 Saturation 97.0 % (92.0-100.0) 07/23/18 17:00 [place] Test NA 07/23/18 17:00 Vent Rate NA 07/23/18 17:00 Inspired O2 40 07/23/18 17:00 Tidal Volume NA 07/23/18 17:00 PEEP NA 07/23/18 17:00 Pressure (ins/psv/peep) NA 07/23/18 17:00 Critical Value E.QUINTEROS 07/23/18 17:00 Sodium 136 mEq/L (136-145) 07/31/18 09:45 Potassium 3.6 mEq/L (3.5-5.1) 07/31/18 09:45 Chloride 105 mEq/L (98-107) 07/31/18 09:45 Carbon Dioxide 27.5 mEq/L (21.0-31.0) 07/31/18 09:45 Anion Gap 7.1 (7.0-16.0) 07/31/18 09:45 BUN 15 mg/dL (7-25) 07/31/18 09:45 Creatinine 2.4 mg/dL (0.6-1.2) H 07/31/18 09:45 Est GFR ( Amer) 27.5 ml/min (>90) 07/31/18 09:45 Est GFR (Non-Af Amer) 22.7 ml/min 07/31/18 09:45 BUN/Creatinine Ratio 6.3 07/31/18 09:45 Glucose 181 mg/dL (70-105) H 07/31/18 09:45 POC Glucose 164 MG/DL (70 - 105) H 07/31/18 11:57 Whole Bld Lactic Acid 1.29 mmol/L (0.60-1.99) 07/12/18 20:50 Calcium 8.3 mg/dL (8.6-10.3) L 07/31/18 09:45 Magnesium 1.6 mg/dL (1.9-2.7) L 07/21/18 05:00 Total Bilirubin 0.3 mg/dL (0.3-1.0) 07/18/18 05:20 AST 18 U/L (13-39) 07/18/18 05:20 ALT 7 U/L (7-52) 07/18/18 05:20 Alkaline Phosphatase 80 U/L (34-104) 07/18/18 05:20 Creatine Kinase 20 U/L (30-223) L 07/12/18 20:50 Troponin I 0.49 ng/mL (0.01-0.05) H* 07/13/18 15:20 B-Natriuretic Peptide 515.0 pg/mL (5.0-100.0) H 07/13/18 04:00 Total Protein 4.0 gm/dL (6.0-8.3) L 07/18/18 05:20 Albumin < 1.5 gm/dL (3.7-5.3) L 07/18/18 05:20 Globulin 2.5 gm/dL 07/18/18 05:20 Albumin/Globulin Ratio 0.6 (1.0-1.8) L 07/18/18 05:20 Triglycerides 53 mg/dL (<150) 07/13/18 04:00 Cholesterol 41 mg/dL (<200) 07/13/18 04:00 LDL Cholesterol Direct 11 mg/dL (75-193) L 07/13/18 04:00 HDL Cholesterol 24 mg/dL (23-92) 07/13/18 04:00 TSH 1.21 uIU/ml (0.34-5.60) 07/13/18 04:00 Urine Source [place] 07/12/18 20:50 Urine Color YELLOW 07/12/18 20:50 Urine Clarity CLOUDY (CLEAR) H 07/12/18 20:50 Urine pH 8.5 (4.6 - 8.0) 07/12/18 20:50 Ur Specific [place] 1.015 (1.005-1.030) 07/12/18 20:50 Urine Protein 100 mg/dL (NEGATIVE) H 07/12/18 20:50 Urine Glucose (UA) NEGATIVE mg/dL (NEGATIVE) 07/12/18 20:50 Urine Ketones NEGATIVE mg/dL (NEGATIVE) 07/12/18 20:50 Urine Blood TRACE (NEGATIVE) 07/12/18 20:50 Urine Nitrate NEGATIVE (NEGATIVE) 07/12/18 20:50 Urine Bilirubin NEGATIVE (NEGATIVE) 07/12/18 20:50 Urine Urobilinogen 0.2 E.U./dL (0.2 - 1.0) 07/12/18 20:50 Ur Leukocyte Esterase LARGE (NEGATIVE) H 07/12/18 20:50 Urine RBC 2-5 /hpf (0-5) 07/12/18 20:50 Urine WBC >100 /hpf (0-5) H 07/12/18 20:50 Ur Epithelial Cells MODERATE /lpf (FEW) 07/12/18 20:50 Urine Bacteria MANY /hpf (NONE SEEN) H 07/12/18 20:50 Amikacin Peak 35.4 ug/mL (20.0-30.0) H 07/25/18 23:55 Amikacin Trough 14.1 ug/mL (1.0-8.0) H 07/25/18 20:30 Random Amikacin 14.8 ug/ml (1.0-30.0) 07/25/18 17:00 Random Vancomycin 25.5 ug/mL (5.0-40.0) 07/24/18 05:50 Crossmatch See Detail 07/28/18 07:30 - Physical Exam Vitals and I&O: Vital Signs Temp 96.9 F 07/31/18 11:34 Pulse 108 07/31/18 11:34 Resp 18 07/31/18 11:34 BP 138/61 07/31/18 11:34 Pulse Ox 99 07/31/18 11:34 Intake & Output 07/30/18 07/31/18 07/31/18 18:59 06:59 18:59 Intake Total 450 220 240 Output Total 75 240 Balance 375 -20 240 Weight (lbs) 105.829 kg 105.687 kg 105.687 kg Intake: Intake, IV Amount 100 100 Tigecycline 50 mg In 100 100 Sodium Chloride 0.9% 100 ml @ 100 mls/hr IV Q12HR [facility] Rx#:[id number] Oral 250 120 240 Other 100 Output: Drainage 75 230 Sacrum 75 30 colostomy 200 Urine 10 Other: # Bowel Movements 1 Stool Characteristics Soft Soft Liquid Liquid Brown Brown Green Green Weight Source Bedscale Bedscale Bedscale Active Medications: Current Medications Acetaminophen (Tylenol) 650 mg PO Q6H PRN PRN Reason: Mild Pain or Fever >101 Stop: 09/11/18 15:14 Acetaminophen/Hydrocodone Bitart (Echo 5mg/325mg) 1 tab PO Q4H PRN PRN Reason: Pain (Moderate) Stop: 09/27/18 14:34 Last Admin: 07/31/18 04:12 Dose: 1 tab Albuterol/Ipratropium (Duoneb Neb) 3 ml HHN Q4HRT PRN PRN Reason: Shortness of Breath or Wheeze Stop: 09/11/18 15:14 Albuterol/Ipratropium (Duoneb Neb) 3 ml HHN Q6HRT [facility] Stop: 09/21/18 18:59 Last Admin: 07/31/18 07:15 Dose: 3 ml Ascorbic Acid (Vitamin C) 500 mg PO DAILY [facility] Stop: 09/12/18 08:59 Last Admin: 07/31/18 10:10 Dose: 500 mg Atorvastatin Calcium (Lipitor) 20 mg PO HS [facility] Stop: 09/11/18 20:59 Last Admin: 07/30/18 20:41 Dose: 20 mg Ross Oil/Polish Balsam/Trypsin (Venelex) 1 appl TP DAILY [facility] Stop: 09/13/18 08:59 Last Admin: 07/31/18 10:12 Dose: 1 appl Dextrose (Glutose 40%) 18.75 gm PO PRN PRN PRN Reason: Blood Glucose less than 70 Stop: 09/11/18 04:10 Docusate Sodium (Colace) 100 mg PO BID [facility] Stop: 09/11/18 16:59 Last Admin: 07/31/18 10:10 Dose: 100 mg Famotidine (Pepcid) 20 mg PO DAILY [facility] Stop: 09/12/18 08:59 Last Admin: 07/31/18 10:11 Dose: 20 mg Folic Acid (Folate) 1 mg PO DAILY [facility] Stop: 09/12/18 08:59 Last Admin: 07/31/18 10:11 Dose: 1 mg Glucagon (Glucagen) 1 mg IM PRN PRN PRN Reason: Blood Glucose less than 70 Stop: 09/11/18 04:10 Heparin Sodium (Porcine) (Heparin) 5,000 units SUBQ Q12HR [facility] Stop: 09/26/18 20:59 Last Admin: 07/31/18 10:12 Dose: 5,000 units Tigecycline 50 mg/ Sodium (Chloride) 100 mls @ 100 mls/hr IV Q12HR [facility] Stop: 09/17/18 19:44 Last Infusion: 07/30/18 21:40 Dose: Infused Insulin Aspart (Novolog Insulin Sliding Scale) 0 units SUBQ ACHS [facility]; Protocol Stop: 09/28/18 11:29 Last Admin: 07/31/18 06:47 Dose: 4 units Lactobacillus Rhamnosus (Culturelle 15b) 1 each PO DAILY [facility] Stop: 09/13/18 13:59 Last Admin: 07/31/18 10:11 Dose: 1 each Levothyroxine Sodium (Synthroid) 0.025 mg PO QDAC [facility] Stop: 09/12/18 07:29 Last Admin: 07/31/18 06:47 Dose: 0.025 mg Miscellaneous (Probiotic Screen) 1 ea MC PRN PRN PRN Reason: PROTOCOL Stop: 09/13/18 11:44 Miscellaneous (Clinical Monitoring) 1 ea MC DAILY PRN PRN Reason: RENAL DOSING Stop: 09/27/18 08:38 Oxcarbazepine (Trileptal) 600 mg PO BID [facility] Stop: 09/11/18 16:59 Last Admin: 07/31/18 10:11 Dose: 600 mg Risperidone (Risperdal) 2 mg PO HS [facility] Stop: 09/11/18 20:59 Last Admin: 07/30/18 20:41 Dose: 2 mg Senna (Senna) 17.2 mg PO BID [facility] Stop: 09/11/18 16:59 Last Admin: 07/31/18 10:11 Dose: 17.2 mg Sevelamer Carbonate (Renvela) 800 mg PO TIDWM [facility] Stop: 09/11/18 16:59 Last Admin: 07/31/18 10:12 Dose: Not Given Vitamin B Complex/Vit C/Folic Acid (Vitamin B Complex W/Vitamin C) 1 tab PO DAILY [facility] Stop: 09/12/18 08:59 Last Admin: 07/31/18 10:10 Dose: 1 tab Zinc Sulfate (Zinc Sulfate) 220 mg PO DAILY [facility] Stop: 09/12/18 08:59 Last Admin: 07/31/18 10:10 Dose: 220 mg General: Alert, Mild distress HEENT: Atraumatic, EOMI Neck: Supple, +2 carotid pulse wo bruit Cardiovascular: Regular rate, Normal S1, Normal S2 Lungs: Other (scattered rhonchi) Abdomen: Bowel sounds, Soft Extremities: Edema ((+) 2-3 edema), Other ((+) 2 bipedal edema) Neurological: Sensation intact Skin: no Rash Psych/Mental Status: Mood NL - Procedures Procedures: Procedures Procedure Code Date BYPASS DESCENDING COLON TO CUTANEOUS, OPEN APPROACH [id number] 07/12/18 EXCISION OF L LOW LEG SUBCU/FASCIA, OPEN APPROACH [id number] 07/12/18 EXCISION OF SACRUM, OPEN APPROACH [id number] 07/12/18 EXCISION OF SIGMOID COLON, OPEN APPROACH [id number] 07/12/18 RESPIRATORY VENTILATION, LESS THAN 24 CONSECUTIVE HOURS [id number] 07/12/18 Assessment/Plan - Problem List Patient Problems: All Active Problems Anasarca (Acute) R60.1 Anemia (Acute) D64.9 CAD (coronary artery disease) (Acute) I25.10 CHF (congestive heart failure) (Acute) I50.9 CKD (chronic kidney disease) (Acute) N18.9 HTN (hypertension) (Acute) I10 UTI (urinary tract infection) (Acute) sacral stage 4 wound (Acute) - Assessment Assessment: ESRD on HD Hypothyroid Parkinson Ds. Fnc Quad Hep B,C GERD Left Calf ulcer Sacral Decub ulcer stage 4, w/ wound vacuum Cholelithiasis B/L HAP w/ effusions Peripheral edema Left SFV DVT S/P Diverting Colostomy - Plan Plan: Lab - Result Diagrams 07/14/18 05:00 07/14/18 05:00 Current Medications Acetaminophen (Tylenol) 650 mg PO Q6H PRN PRN Reason: Pain or Fever >101 Stop: 09/11/18 15:14 Acetaminophen/Hydrocodone Bitart (Echo 5mg/325mg) 1 tab PO Q6H PRN PRN Reason: Pain (Severe) Stop: 09/11/18 15:14 Albuterol/Ipratropium (Duoneb Neb) 3 ml HHN Q4HRT PRN PRN Reason: Shortness of Breath or Wheeze Stop: 09/11/18 15:14 Ascorbic Acid (Vitamin C) 500 mg PO DAILY [facility] Stop: 09/12/18 08:59 Last Admin: 07/14/18 08:27 Dose: 500 mg Atorvastatin Calcium (Lipitor) 20 mg PO HS [facility] Stop: 09/11/18 20:59 Last Admin: 07/13/18 21:05 Dose: 20 mg Dextrose (D50w) 50 ml IVP PRN PRN PRN Reason: Blood Glucose less than 70 Stop: 09/11/18 04:10 Dextrose (Glutose 40%) 18.75 gm PO PRN PRN PRN Reason: Blood Glucose less than 70 Stop: 09/11/18 04:10 Docusate Sodium (Colace) 100 mg PO BID [facility] Stop: 09/11/18 16:59 Last Admin: 07/14/18 08:27 Dose: 100 mg Famotidine (Pepcid) 20 mg PO DAILY [facility] Stop: 09/12/18 08:59 Last Admin: 07/14/18 08:27 Dose: 20 mg Folic Acid (Folate) 1 mg PO DAILY [facility] Stop: 09/12/18 08:59 Last Admin: 07/14/18 08:27 Dose: 1 mg Glucagon (Glucagen) 1 mg IM PRN PRN PRN Reason: Blood Glucose less than 70 Stop: 09/11/18 04:10 Piperacillin Sod/Tazobactam (Sod 2.25 gm/ Sodium Chloride) 50 mls @ 100 mls/hr IV Q6H [facility] Stop: 09/11/18 05:59 Last Admin: 07/14/18 06:05 Dose: Not Given Dextrose/Sodium Chloride (D5-0.45ns) 1,000 mls @ 50 mls/hr IV .Q20H [facility] Stop: 09/11/18 02:29 Last Admin: 07/13/18 04:03 Dose: 50 mls/hr Insulin Aspart (Novolog Insulin Sliding Scale) 0 units SUBQ Q6HR [facility]; Protocol Stop: 09/11/18 05:59 Last Admin: 07/14/18 06:05 Dose: Not Given Levothyroxine Sodium (Synthroid) 0.025 mg PO QDAC [facility] Stop: 09/12/18 07:29 Last Admin: 07/14/18 06:35 Dose: 0.025 mg Miscellaneous (Vancomycin Iv Per Pharmacy) 1 [facility] PRN PRN PRN Reason: PROTOCOL Stop: 09/10/18 23:40 Oxcarbazepine (Trileptal) 600 mg PO BID [facility] Stop: 09/11/18 16:59 Last Admin: 07/14/18 08:27 Dose: 600 mg Risperidone (Risperdal) 2 mg PO HS [facility] Stop: 09/11/18 20:59 Last Admin: 07/13/18 21:05 Dose: 2 mg Senna (Senna) 17.2 mg PO BID [facility] Stop: 09/11/18 16:59 Last Admin: 07/14/18 08:27 Dose: 17.2 mg Sevelamer Carbonate (Renvela) 800 mg PO TIDWM [facility] Stop: 09/11/18 16:59 Last Admin: 07/14/18 08:27 Dose: 800 mg Temazepam (Restoril) 15 mg PO HS PRN; Protocol PRN Reason: Insomnia Stop: 09/11/18 15:14 Vitamin B Complex/Vit C/Folic Acid (Vitamin B Complex W/Vitamin C) 1 tab PO DAILY [facility] Stop: 09/12/18 08:59 Last Admin: 07/14/18 08:27 Dose: 1 tab Zinc Sulfate (Zinc Sulfate) 220 mg PO DAILY [facility] Stop: 09/12/18 08:59 Last Admin: 07/14/18 08:27 Dose: 220 m Lab - Result Diagrams 07/31/18 09:45 07/31/18 09:45 continue wound care Pt. had diverting colostomy CXR less congestion, effusion schedule for HD today started on Puree diet Nutritional Asmnt/Malnutr-PDOC - Dietary Evaluation Malnutrition Findings (Please click <Entered> for more info): Nutritional Asmnt/Malnutrition Start: 07/13/18 13: 54 Text: Status: Complete Freq: Protocol: Document 07/13/18 13:56 ALDAIR (Rec: 07/13/18 14:10 ALDAIR NASH- [id number]) Nutritional Asmnt/Malnutrition Patient General Information Nutritional Screening Consult Diagnosis ESRD, anasarca Pertinent Medical Hx/Surgical Hx Seizure, hep C, diabetes, CAD, HTN, CVA, quadreplegia, Parkinsons, ESRD Subjective Information Consult received for "Diabetic ". Per nursing notes, patient receives hemodialysis MWF and patient is non-verbal. Patient with 2+ pitting edema. Current Diet Order/ Nutrition Support Renal diet Patient / S.O Not Indicated Pertinent Medications D50W, D5-0.45NS @50 ml/hr, Glucagon, Novolog Pertinent Labs (07/13) Na 134, BUN 48, Cr 2.9, glucose 41-137, Ca 8.2, BNP 515, albumin 2 Nutritional Hx/Data Height 1.73 m Height (Calculated Centimeters) 172.7 Current Weight (lbs) 113.852 kg Weight (Calculated Kilograms) 113.9 Weight (Calculated Grams) 976111.7 [place] Body Weight 140 % [place] Body Weight 179 Body Mass Index (BMI) 38.1 Recent Weight Change No Weight Status Morbidly Obese GI Symptoms GI Symptoms None Last BM 07/13 x 1 Difficult in: Chewing Food Allergies No Cultural/Ethnic/[employer] Belief none indicated Usual diet at home unknown Skin Integrity/Comment: Arian 10, ulceration on sacrum, left lower leg, abrasion on L heel, scar on right leg. Current %PO Good (75-100%) Estimated Nutritional Goals BEE in Kcals: Adj wt of IBW Calories/Kcals/Kg 27-32 kcal/kg (using 76.2kg ADj wt) Kcals Calculated ~0908-7276 kcal/day Protein g/k.2-1.5 gm/kg using Adj wt Protein Calculated ~90-115 gm/day Fluid: ml Per MD due to HD Nutritional Problem 2. Problem Problem Altered nutrition related lab values related to Etiology episodes of hypoglycemia, electrolyte imbalance aeb Signs/Symptoms: Na 134, glucose 41-137, Ca 8.2 1. Problem Problem Increased nutrient needs related to Etiology hypermetabolic state, impaired skin integrity aeb Signs/Symptoms: Pt on Hemodialysis and with multiple ulcerations Intervention/Recommendation Comments 1. Continue Renal diet as tolerated by patient. No need for DM restriction at this time due to hypoglycemia. 2. Consider fluid restriction due to HD, hyponatremia and edema. 3. Consider adding Prosource 1 packet with each meal for an additional 45gm protein. Expected Outcomes/Goals Expected Outcomes/Goals Oral intake >75% of meals, weight stable or trend toward ideal body weight, nutrition related labs WNL
--- NOTE | 2018-07-31 12:41 | Internal Medicine Prog Note ---
Internal Medicine Subjective - Subjective Service Date: 07/31/18 Patient is:: awake Per staff patient has:: tolerating meds Internal Medicine Objective - Results Result Diagrams: 07/31/18 09:45 07/31/18 09:45 Recent Labs: Laboratory Last Values WBC 5.0 Th/cmm (4.8-10.8) 07/31/18 09:45 RBC 2.68 Mil/cmm (3.80-5.10) L 07/31/18 09:45 Hgb 7.8 gm/dL (12-16) L* 07/31/18 09:45 Hct 23.4 % (41.0-60) L 07/31/18 09:45 MCV 87.4 fl (81-100) 07/31/18 09:45 MCH 29.1 pg (27.0-31.0) 07/31/18 09:45 MCHC Differential 33.3 pg (28.0-36.0) 07/31/18 09:45 RDW 16.9 % (11.5-20.0) 07/31/18 09:45 Plt Count 144 Th/cmm (150-400) L 07/31/18 09:45 MPV 7.2 fl 07/31/18 09:45 Add Manual Diff YES 07/28/18 04:20 Neutrophils % 52.4 % (40.0-80.0) 07/31/18 09:45 Band Neutrophils % 0 % (0-10) 07/28/18 04:20 Lymphocytes % 34.3 % (20.0-50.0) 07/31/18 09:45 Monocytes % 11.9 % (2.0-10.0) H 07/31/18 09:45 Eosinophils % 0.5 % (0.0-5.0) 07/31/18 09:45 Basophils % 0.9 % (0.0-2.0) 07/31/18 09:45 Neutrophils (Manual) 60 % (40-80) 07/28/18 04:20 Lymphocytes 30 % (20-50) 07/28/18 04:20 Monocytes 10 % (2-10) 07/28/18 04:20 Eosinophils 0 % (0-5) 07/28/18 04:20 Basophils 0 % (0-3) 07/28/18 04:20 Platelet Estimate DECREASED PLATELETS (NORMAL) 07/28/18 04:20 PT 17.0 SECONDS (9.5-11.5) H 07/28/18 04:20 INR 1.67 (0.5-1.4) H 07/28/18 04:20 PTT (Actin FS) 43.0 SECONDS (26.0-38.0) H 07/20/18 08:08 Specimen Source Arterial 07/23/18 17:00 Sample Site LB 07/23/18 17:00 pH 7.44 (7.35-7.45) 07/23/18 17:00 pCO2 44.0 mmHg (35.0-45.0) 07/23/18 17:00 pO2 86.0 mmHg (80.0-100.0) 07/23/18 17:00 HCO3 28.9 mEq/L (20.0-26.0) H 07/23/18 17:00 Base Excess 5.1 mEq/L (-3.0-3.0) H 07/23/18 17:00 O2 Saturation 97.0 % (92.0-100.0) 07/23/18 17:00 [place] Test NA 07/23/18 17:00 Vent Rate NA 07/23/18 17:00 Inspired O2 40 07/23/18 17:00 Tidal Volume NA 07/23/18 17:00 PEEP NA 07/23/18 17:00 Pressure (ins/psv/peep) NA 07/23/18 17:00 Critical Value E.QUINTEROS 07/23/18 17:00 Sodium 136 mEq/L (136-145) 07/31/18 09:45 Potassium 3.6 mEq/L (3.5-5.1) 07/31/18 09:45 Chloride 105 mEq/L (98-107) 07/31/18 09:45 Carbon Dioxide 27.5 mEq/L (21.0-31.0) 07/31/18 09:45 Anion Gap 7.1 (7.0-16.0) 07/31/18 09:45 BUN 15 mg/dL (7-25) 07/31/18 09:45 Creatinine 2.4 mg/dL (0.6-1.2) H 07/31/18 09:45 Est GFR ( Amer) 27.5 ml/min (>90) 07/31/18 09:45 Est GFR (Non-Af Amer) 22.7 ml/min 07/31/18 09:45 BUN/Creatinine Ratio 6.3 07/31/18 09:45 Glucose 181 mg/dL (70-105) H 07/31/18 09:45 POC Glucose 164 MG/DL (70 - 105) H 07/31/18 11:57 Whole Bld Lactic Acid 1.29 mmol/L (0.60-1.99) 07/12/18 20:50 Calcium 8.3 mg/dL (8.6-10.3) L 07/31/18 09:45 Magnesium 1.6 mg/dL (1.9-2.7) L 07/21/18 05:00 Total Bilirubin 0.3 mg/dL (0.3-1.0) 07/18/18 05:20 AST 18 U/L (13-39) 07/18/18 05:20 ALT 7 U/L (7-52) 07/18/18 05:20 Alkaline Phosphatase 80 U/L (34-104) 07/18/18 05:20 Creatine Kinase 20 U/L (30-223) L 07/12/18 20:50 Troponin I 0.49 ng/mL (0.01-0.05) H* 07/13/18 15:20 B-Natriuretic Peptide 515.0 pg/mL (5.0-100.0) H 07/13/18 04:00 Total Protein 4.0 gm/dL (6.0-8.3) L 07/18/18 05:20 Albumin < 1.5 gm/dL (3.7-5.3) L 07/18/18 05:20 Globulin 2.5 gm/dL 07/18/18 05:20 Albumin/Globulin Ratio 0.6 (1.0-1.8) L 07/18/18 05:20 Triglycerides 53 mg/dL (<150) 07/13/18 04:00 Cholesterol 41 mg/dL (<200) 07/13/18 04:00 LDL Cholesterol Direct 11 mg/dL (75-193) L 07/13/18 04:00 HDL Cholesterol 24 mg/dL (23-92) 07/13/18 04:00 TSH 1.21 uIU/ml (0.34-5.60) 07/13/18 04:00 Urine Source [place] 07/12/18 20:50 Urine Color YELLOW 07/12/18 20:50 Urine Clarity CLOUDY (CLEAR) H 07/12/18 20:50 Urine pH 8.5 (4.6 - 8.0) 07/12/18 20:50 Ur Specific [place] 1.015 (1.005-1.030) 07/12/18 20:50 Urine Protein 100 mg/dL (NEGATIVE) H 07/12/18 20:50 Urine Glucose (UA) NEGATIVE mg/dL (NEGATIVE) 07/12/18 20:50 Urine Ketones NEGATIVE mg/dL (NEGATIVE) 07/12/18 20:50 Urine Blood TRACE (NEGATIVE) 07/12/18 20:50 Urine Nitrate NEGATIVE (NEGATIVE) 07/12/18 20:50 Urine Bilirubin NEGATIVE (NEGATIVE) 07/12/18 20:50 Urine Urobilinogen 0.2 E.U./dL (0.2 - 1.0) 07/12/18 20:50 Ur Leukocyte Esterase LARGE (NEGATIVE) H 07/12/18 20:50 Urine RBC 2-5 /hpf (0-5) 07/12/18 20:50 Urine WBC >100 /hpf (0-5) H 07/12/18 20:50 Ur Epithelial Cells MODERATE /lpf (FEW) 07/12/18 20:50 Urine Bacteria MANY /hpf (NONE SEEN) H 07/12/18 20:50 Amikacin Peak 35.4 ug/mL (20.0-30.0) H 07/25/18 23:55 Amikacin Trough 14.1 ug/mL (1.0-8.0) H 07/25/18 20:30 Random Amikacin 14.8 ug/ml (1.0-30.0) 07/25/18 17:00 Random Vancomycin 25.5 ug/mL (5.0-40.0) 07/24/18 05:50 Crossmatch See Detail 07/28/18 07:30 - Physical Exam Vitals and I&O: Vital Signs Temp 96.9 F 07/31/18 11:34 Pulse 108 07/31/18 11:34 Resp 18 07/31/18 11:34 BP 138/61 07/31/18 11:34 Pulse Ox 99 07/31/18 11:34 Intake & Output 07/30/18 07/31/18 07/31/18 18:59 06:59 18:59 Intake Total 450 220 240 Output Total 75 240 2600 Balance Weight (lbs) 233 lb 5 oz 233 lb 233 lb Intake: Intake, IV Amount 100 100 Tigecycline 50 mg In 100 100 Sodium Chloride 0.9% 100 ml @ 100 mls/hr IV Q12HR [facility] Rx#:[id number] Oral 250 120 240 Other 100 Output: Drainage 75 230 Sacrum 75 30 colostomy 200 Urine 10 Hemodialysis 2600 Other: # Bowel Movements 1 Stool Characteristics Soft Soft Liquid Liquid Brown Brown Green Green Weight Source Bedscale Bedscale Bedscale Active Medications: Current Medications Acetaminophen (Tylenol) 650 mg PO Q6H PRN PRN Reason: Mild Pain or Fever >101 Stop: 09/11/18 15:14 Acetaminophen/Hydrocodone Bitart ([place] 5mg/325mg) 1 tab PO Q4H PRN PRN Reason: Pain (Moderate) Stop: 09/27/18 14:34 Last Admin: 07/31/18 04:12 Dose: 1 tab Albuterol/Ipratropium (Duoneb Neb) 3 ml HHN Q4HRT PRN PRN Reason: Shortness of Breath or Wheeze Stop: 09/11/18 15:14 Albuterol/Ipratropium (Duoneb Neb) 3 ml HHN Q6HRT [facility] Stop: 09/21/18 18:59 Last Admin: 07/31/18 07:15 Dose: 3 ml Ascorbic Acid (Vitamin C) 500 mg PO DAILY [facility] Stop: 09/12/18 08:59 Last Admin: 07/31/18 10:10 Dose: 500 mg Atorvastatin Calcium (Lipitor) 20 mg PO HS [facility] Stop: 09/11/18 20:59 Last Admin: 07/30/18 20:41 Dose: 20 mg [place] Oil/M[place]ese Balsam/Trypsin (Venelex) 1 appl TP DAILY [facility] Stop: 09/13/18 08:59 Last Admin: 07/31/18 10:12 Dose: 1 appl Dextrose (Glutose 40%) 18.75 gm PO PRN PRN PRN Reason: Blood Glucose less than 70 Stop: 09/11/18 04:10 Docusate Sodium (Colace) 100 mg PO BID [facility] Stop: 09/11/18 16:59 Last Admin: 07/31/18 10:10 Dose: 100 mg Epoetin Evelio (Epogen) 10,000 units SUBQ MoWeFr VIKTORIA Stop: 09/29/18 12:44 Famotidine (Pepcid) 20 mg PO DAILY [facility] Stop: 09/12/18 08:59 Last Admin: 07/31/18 10:11 Dose: 20 mg Folic Acid (Folate) 1 mg PO DAILY [facility] Stop: 09/12/18 08:59 Last Admin: 07/31/18 10:11 Dose: 1 mg Glucagon (Glucagen) 1 mg IM PRN PRN PRN Reason: Blood Glucose less than 70 Stop: 09/11/18 04:10 Heparin Sodium (Porcine) (Heparin) 5,000 units SUBQ Q12HR [facility] Stop: 09/26/18 20:59 Last Admin: 07/31/18 10:12 Dose: 5,000 units Tigecycline 50 mg/ Sodium (Chloride) 100 mls @ 100 mls/hr IV Q12HR [facility] Stop: 09/17/18 19:44 Last Infusion: 07/30/18 21:40 Dose: Infused Insulin Aspart (Novolog Insulin Sliding Scale) 0 units SUBQ ACHS [facility]; Protocol Stop: 09/28/18 11:29 Last Admin: 07/31/18 06:47 Dose: 4 units Lactobacillus Rhamnosus (Culturelle 15b) 1 each PO DAILY [facility] Stop: 09/13/18 13:59 Last Admin: 07/31/18 10:11 Dose: 1 each Levothyroxine Sodium (Synthroid) 0.025 mg PO QDAC [facility] Stop: 09/12/18 07:29 Last Admin: 07/31/18 06:47 Dose: 0.025 mg Miscellaneous (Probiotic Screen) 1 ea MC PRN PRN PRN Reason: PROTOCOL Stop: 09/13/18 11:44 Miscellaneous (Clinical Monitoring) 1 ea MC DAILY PRN PRN Reason: RENAL DOSING Stop: 09/27/18 08:38 Oxcarbazepine (Trileptal) 600 mg PO BID [facility] Stop: 09/11/18 16:59 Last Admin: 07/31/18 10:11 Dose: 600 mg Risperidone (Risperdal) 2 mg PO HS [facility] Stop: 09/11/18 20:59 Last Admin: 07/30/18 20:41 Dose: 2 mg Senna (Senna) 17.2 mg PO BID [facility] Stop: 09/11/18 16:59 Last Admin: 07/31/18 10:11 Dose: 17.2 mg Sevelamer Carbonate (Renvela) 800 mg PO TIDWM [facility] Stop: 09/11/18 16:59 Last Admin: 07/31/18 10:12 Dose: Not Given Vitamin B Complex/Vit C/Folic Acid (Vitamin B Complex W/Vitamin C) 1 tab PO DAILY [facility] Stop: 09/12/18 08:59 Last Admin: 07/31/18 10:10 Dose: 1 tab Zinc Sulfate (Zinc Sulfate) 220 mg PO DAILY [facility] Stop: 09/12/18 08:59 Last Admin: 07/31/18 10:10 Dose: 220 mg General: weak, alert HEENT: NC/AT, PERRLA Neck: Supple Lungs: CTAB Abdomen: soft, non-tender, non-distended Extremities: other (sacrum ulcer) Neurological: alert - Procedures Procedures: Procedures Procedure Code Date BYPASS DESCENDING COLON TO CUTANEOUS, OPEN APPROACH [id number] 07/12/18 EXCISION OF L LOW LEG SUBCU/FASCIA, OPEN APPROACH [id number] 07/12/18 EXCISION OF SACRUM, OPEN APPROACH [id number] 07/12/18 EXCISION OF SIGMOID COLON, OPEN APPROACH [id number] 07/12/18 RESPIRATORY VENTILATION, LESS THAN 24 CONSECUTIVE HOURS [id number] 07/12/18 Internal Medicine Assmt/Plan - Assessment Assessment: Sacral wound stage 4 acute uti dm 1 anemia cad chf anasarca ckd stage 5 on hd - Plan Plan: continue ivabx as per id wound care to continue hd as per renal continue current plan of care Nutritional Asmnt/Malnutr-PDOC - Dietary Evaluation Malnutrition Findings (Please click <Entered> for more info): Nutritional Asmnt/Malnutrition Start: 07/13/18 13: 54 Text: Status: Complete Freq: Protocol: Document 07/13/18 13:56 MMULNACHO (Rec: 07/13/18 14:10 [email or web address] NASH- [id number]) Nutritional Asmnt/Malnutrition Patient General Information Nutritional Screening Consult Diagnosis ESRD, anasarca Pertinent Medical Hx/Surgical Hx Seizure, hep C, diabetes, CAD, HTN, CVA, quadreplegia, Parkinsons, ESRD Subjective Information Consult received for "Diabetic ". Per nursing notes, patient receives hemodialysis MWF and patient is non-verbal. Patient with 2+ pitting edema. Current Diet Order/ Nutrition Support Renal diet Patient / S.O Not Indicated Pertinent Medications D50W, D5-0.45NS @50 ml/hr, Glucagon, Novolog Pertinent Labs (07/13) Na 134, BUN 48, Cr 2.9, glucose 41-137, Ca 8.2, BNP 515, albumin 2 Nutritional Hx/Data Height 5 ft 8 in Height (Calculated Centimeters) 172.7 Current Weight (lbs) 251 lb Weight (Calculated Kilograms) 113.9 Weight (Calculated Grams) 422052.7 [place] Body Weight 140 % [place] Body Weight 179 Body Mass Index (BMI) 38.1 Recent Weight Change No Weight Status Morbidly Obese GI Symptoms GI Symptoms None Last BM 07/13 x 1 Difficult in: Chewing Food Allergies No Cultural/Ethnic/Congregation Belief none indicated Usual diet at home unknown Skin Integrity/Comment: Arian 10, ulceration on sacrum, left lower leg, abrasion on L heel, scar on right leg. Current %PO Good (75-100%) Estimated Nutritional Goals BEE in Kcals: Adj wt of IBW Calories/Kcals/Kg 27-32 kcal/kg (using 76.2kg ADj wt) Kcals Calculated ~9110-6596 kcal/day Protein g/k.2-1.5 gm/kg using Adj wt Protein Calculated ~90-115 gm/day Fluid: ml Per MD due to HD Nutritional Problem 2. Problem Problem Altered nutrition related lab values related to Etiology episodes of hypoglycemia, electrolyte imbalance aeb Signs/Symptoms: Na 134, glucose 41-137, Ca 8.2 1. Problem Problem Increased nutrient needs related to Etiology hypermetabolic state, impaired skin integrity aeb Signs/Symptoms: Pt on Hemodialysis and with multiple ulcerations Intervention/Recommendation Comments 1. Continue Renal diet as tolerated by patient. No need for DM restriction at this time due to hypoglycemia. 2. Consider fluid restriction due to HD, hyponatremia and edema. 3. Consider adding Prosource 1 packet with each meal for an additional 45gm protein. Expected Outcomes/Goals Expected Outcomes/Goals Oral intake >75% of meals, weight stable or trend toward ideal body weight, nutrition related labs WNL
--- NOTE | 2018-07-31 12:45 | Infectious Disease Prog Note ---
Infectious Disease Subjective - Review of Systems Service Date: 07/31/18 Subjective: s/p Debridement of sacral wound and diverting colostomy Infectious Disease Objective - Results Result Diagrams: 07/31/18 09:45 07/31/18 09:45 Recent Labs: Laboratory Last Values WBC 5.0 Th/cmm (4.8-10.8) 07/31/18 09:45 RBC 2.68 Mil/cmm (3.80-5.10) L 07/31/18 09:45 Hgb 7.8 gm/dL (12-16) L* 07/31/18 09:45 Hct 23.4 % (41.0-60) L 07/31/18 09:45 MCV 87.4 fl (81-100) 07/31/18 09:45 MCH 29.1 pg (27.0-31.0) 07/31/18 09:45 MCHC Differential 33.3 pg (28.0-36.0) 07/31/18 09:45 RDW 16.9 % (11.5-20.0) 07/31/18 09:45 Plt Count 144 Th/cmm (150-400) L 07/31/18 09:45 MPV 7.2 fl 07/31/18 09:45 Add Manual Diff YES 07/28/18 04:20 Neutrophils % 52.4 % (40.0-80.0) 07/31/18 09:45 Band Neutrophils % 0 % (0-10) 07/28/18 04:20 Lymphocytes % 34.3 % (20.0-50.0) 07/31/18 09:45 Monocytes % 11.9 % (2.0-10.0) H 07/31/18 09:45 Eosinophils % 0.5 % (0.0-5.0) 07/31/18 09:45 Basophils % 0.9 % (0.0-2.0) 07/31/18 09:45 Neutrophils (Manual) 60 % (40-80) 07/28/18 04:20 Lymphocytes 30 % (20-50) 07/28/18 04:20 Monocytes 10 % (2-10) 07/28/18 04:20 Eosinophils 0 % (0-5) 07/28/18 04:20 Basophils 0 % (0-3) 07/28/18 04:20 Platelet Estimate DECREASED PLATELETS (NORMAL) 07/28/18 04:20 PT 17.0 SECONDS (9.5-11.5) H 07/28/18 04:20 INR 1.67 (0.5-1.4) H 07/28/18 04:20 PTT (Actin FS) 43.0 SECONDS (26.0-38.0) H 07/20/18 08:08 Specimen Source Arterial 07/23/18 17:00 Sample Site LB 07/23/18 17:00 pH 7.44 (7.35-7.45) 07/23/18 17:00 pCO2 44.0 mmHg (35.0-45.0) 07/23/18 17:00 pO2 86.0 mmHg (80.0-100.0) 07/23/18 17:00 HCO3 28.9 mEq/L (20.0-26.0) H 07/23/18 17:00 Base Excess 5.1 mEq/L (-3.0-3.0) H 07/23/18 17:00 O2 Saturation 97.0 % (92.0-100.0) 07/23/18 17:00 [place] Test NA 07/23/18 17:00 Vent Rate NA 07/23/18 17:00 Inspired O2 40 07/23/18 17:00 Tidal Volume NA 07/23/18 17:00 PEEP NA 07/23/18 17:00 Pressure (ins/psv/peep) NA 07/23/18 17:00 Critical Value E.QUINTEROS 07/23/18 17:00 Sodium 136 mEq/L (136-145) 07/31/18 09:45 Potassium 3.6 mEq/L (3.5-5.1) 07/31/18 09:45 Chloride 105 mEq/L (98-107) 07/31/18 09:45 Carbon Dioxide 27.5 mEq/L (21.0-31.0) 07/31/18 09:45 Anion Gap 7.1 (7.0-16.0) 07/31/18 09:45 BUN 15 mg/dL (7-25) 07/31/18 09:45 Creatinine 2.4 mg/dL (0.6-1.2) H 07/31/18 09:45 Est GFR ( Amer) 27.5 ml/min (>90) 07/31/18 09:45 Est GFR (Non-Af Amer) 22.7 ml/min 07/31/18 09:45 BUN/Creatinine Ratio 6.3 07/31/18 09:45 Glucose 181 mg/dL (70-105) H 07/31/18 09:45 POC Glucose 164 MG/DL (70 - 105) H 07/31/18 11:57 Whole Bld Lactic Acid 1.29 mmol/L (0.60-1.99) 07/12/18 20:50 Calcium 8.3 mg/dL (8.6-10.3) L 07/31/18 09:45 Magnesium 1.6 mg/dL (1.9-2.7) L 07/21/18 05:00 Total Bilirubin 0.3 mg/dL (0.3-1.0) 07/18/18 05:20 AST 18 U/L (13-39) 07/18/18 05:20 ALT 7 U/L (7-52) 07/18/18 05:20 Alkaline Phosphatase 80 U/L (34-104) 07/18/18 05:20 Creatine Kinase 20 U/L (30-223) L 07/12/18 20:50 Troponin I 0.49 ng/mL (0.01-0.05) H* 07/13/18 15:20 B-Natriuretic Peptide 515.0 pg/mL (5.0-100.0) H 07/13/18 04:00 Total Protein 4.0 gm/dL (6.0-8.3) L 07/18/18 05:20 Albumin < 1.5 gm/dL (3.7-5.3) L 07/18/18 05:20 Globulin 2.5 gm/dL 07/18/18 05:20 Albumin/Globulin Ratio 0.6 (1.0-1.8) L 07/18/18 05:20 Triglycerides 53 mg/dL (<150) 07/13/18 04:00 Cholesterol 41 mg/dL (<200) 07/13/18 04:00 LDL Cholesterol Direct 11 mg/dL (75-193) L 07/13/18 04:00 HDL Cholesterol 24 mg/dL (23-92) 07/13/18 04:00 TSH 1.21 uIU/ml (0.34-5.60) 07/13/18 04:00 Urine Source S[place] 07/12/18 20:50 Urine Color YELLOW 07/12/18 20:50 Urine Clarity CLOUDY (CLEAR) H 07/12/18 20:50 Urine pH 8.5 (4.6 - 8.0) 07/12/18 20:50 Ur Specific Bailey 1.015 (1.005-1.030) 07/12/18 20:50 Urine Protein 100 mg/dL (NEGATIVE) H 07/12/18 20:50 Urine Glucose (UA) NEGATIVE mg/dL (NEGATIVE) 07/12/18 20:50 Urine Ketones NEGATIVE mg/dL (NEGATIVE) 07/12/18 20:50 Urine Blood TRACE (NEGATIVE) 07/12/18 20:50 Urine Nitrate NEGATIVE (NEGATIVE) 07/12/18 20:50 Urine Bilirubin NEGATIVE (NEGATIVE) 07/12/18 20:50 Urine Urobilinogen 0.2 E.U./dL (0.2 - 1.0) 07/12/18 20:50 Ur Leukocyte Esterase LARGE (NEGATIVE) H 07/12/18 20:50 Urine RBC 2-5 /hpf (0-5) 07/12/18 20:50 Urine WBC >100 /hpf (0-5) H 07/12/18 20:50 Ur Epithelial Cells MODERATE /lpf (FEW) 07/12/18 20:50 Urine Bacteria MANY /hpf (NONE SEEN) H 07/12/18 20:50 Amikacin Peak 35.4 ug/mL (20.0-30.0) H 07/25/18 23:55 Amikacin Trough 14.1 ug/mL (1.0-8.0) H 07/25/18 20:30 Random Amikacin 14.8 ug/ml (1.0-30.0) 07/25/18 17:00 Random Vancomycin 25.5 ug/mL (5.0-40.0) 07/24/18 05:50 Crossmatch See Detail 07/28/18 07:30 - Physical Exam Vitals and I&O: Vital Signs Temp 96.9 F 07/31/18 11:34 Pulse 108 07/31/18 11:34 Resp 18 07/31/18 11:34 BP 138/61 07/31/18 11:34 Pulse Ox 99 07/31/18 11:34 Intake & Output 07/30/18 07/31/18 07/31/18 18:59 06:59 18:59 Intake Total 450 220 240 Output Total 75 240 2600 Balance Weight (lbs) 105.829 kg 105.687 kg 105.687 kg Intake: Intake, IV Amount 100 100 Tigecycline 50 mg In 100 100 Sodium Chloride 0.9% 100 ml @ 100 mls/hr IV Q12HR [facility] Rx#:[id number] Oral 250 120 240 Other 100 Output: Drainage 75 230 Sacrum 75 30 colostomy 200 Urine 10 Hemodialysis 2600 Other: # Bowel Movements 1 Stool Characteristics Soft Soft Liquid Liquid Brown Brown Green Green Weight Source Bedscale Bedscale Bedscale Active Medications: Current Medications Acetaminophen (Tylenol) 650 mg PO Q6H PRN PRN Reason: Mild Pain or Fever >101 Stop: 09/11/18 15:14 Acetaminophen/Hydrocodone Bitart ([place] 5mg/325mg) 1 tab PO Q4H PRN PRN Reason: Pain (Moderate) Stop: 09/27/18 14:34 Last Admin: 07/31/18 04:12 Dose: 1 tab Albuterol/Ipratropium (Duoneb Neb) 3 ml HHN Q4HRT PRN PRN Reason: Shortness of Breath or Wheeze Stop: 09/11/18 15:14 Albuterol/Ipratropium (Duoneb Neb) 3 ml HHN Q6HRT VIKTORIA Stop: 09/21/18 18:59 Last Admin: 07/31/18 07:15 Dose: 3 ml Ascorbic Acid (Vitamin C) 500 mg PO DAILY VIKTORIA Stop: 09/12/18 08:59 Last Admin: 07/31/18 10:10 Dose: 500 mg Atorvastatin Calcium (Lipitor) 20 mg PO HS [facility] Stop: 09/11/18 20:59 Last Admin: 07/30/18 20:41 Dose: 20 mg [place] Oil/[place] Balsam/Trypsin (Venelex) 1 appl TP DAILY [facility] Stop: 09/13/18 08:59 Last Admin: 07/31/18 10:12 Dose: 1 appl Dextrose (Glutose 40%) 18.75 gm PO PRN PRN PRN Reason: Blood Glucose less than 70 Stop: 09/11/18 04:10 Docusate Sodium (Colace) 100 mg PO BID [facility] Stop: 09/11/18 16:59 Last Admin: 07/31/18 10:10 Dose: 100 mg Epoetin Evelio (Epogen) 10,000 units SUBQ MoWeFr [facility] Stop: 09/29/18 12:44 Famotidine (Pepcid) 20 mg PO DAILY [facility] Stop: 09/12/18 08:59 Last Admin: 07/31/18 10:11 Dose: 20 mg Folic Acid (Folate) 1 mg PO DAILY VIKTORIA Stop: 09/12/18 08:59 Last Admin: 07/31/18 10:11 Dose: 1 mg Glucagon (Glucagen) 1 mg IM PRN PRN PRN Reason: Blood Glucose less than 70 Stop: 09/11/18 04:10 Heparin Sodium (Porcine) (Heparin) 5,000 units SUBQ Q12HR [facility] Stop: 09/26/18 20:59 Last Admin: 07/31/18 10:12 Dose: 5,000 units Insulin Aspart (Novolog Insulin Sliding Scale) 0 units SUBQ [facility]; Protocol Stop: 09/28/18 11:29 Last Admin: 07/31/18 06:47 Dose: 4 units Lactobacillus Rhamnosus (Culturelle 15b) 1 each PO DAILY [facility] Stop: 09/13/18 13:59 Last Admin: 07/31/18 10:11 Dose: 1 each Levothyroxine Sodium (Synthroid) 0.025 mg PO QDAC [facility] Stop: 09/12/18 07:29 Last Admin: 07/31/18 06:47 Dose: 0.025 mg Miscellaneous (Probiotic Screen) 1 ea MC PRN PRN PRN Reason: PROTOCOL Stop: 09/13/18 11:44 Miscellaneous (Clinical Monitoring) 1 ea MC DAILY PRN PRN Reason: RENAL DOSING Stop: 09/27/18 08:38 Oxcarbazepine (Trileptal) 600 mg PO BID [facility] Stop: 09/11/18 16:59 Last Admin: 07/31/18 10:11 Dose: 600 mg Risperidone (Risperdal) 2 mg PO HS [facility] Stop: 09/11/18 20:59 Last Admin: 07/30/18 20:41 Dose: 2 mg Senna (Senna) 17.2 mg PO BID [facility] Stop: 09/11/18 16:59 Last Admin: 07/31/18 10:11 Dose: 17.2 mg Sevelamer Carbonate (Renvela) 800 mg PO TIDWM [facility] Stop: 09/11/18 16:59 Last Admin: 07/31/18 10:12 Dose: Not Given Vitamin B Complex/Vit C/Folic Acid (Vitamin B Complex W/Vitamin C) 1 tab PO DAILY [facility] Stop: 09/12/18 08:59 Last Admin: 07/31/18 10:10 Dose: 1 tab Zinc Sulfate (Zinc Sulfate) 220 mg PO DAILY [facility] Stop: 09/12/18 08:59 Last Admin: 07/31/18 10:10 Dose: 220 mg General: no acute distress, well developed, well nourished HEENT: atraumatic, normocephalic, PERRLA, EOMI Neck: supple, no thyromegaly Cardiovascular: S1S2, regular Lungs: clear to auscultation bilaterally, clear to percussion, crackles Abdomen: soft, no tender, no distended Extremities: no cyanosis, no clubbing, no edema Neurological: awake, alert Skin: other (sacral wound wound vac.) - Procedures Procedures: Procedures Procedure Code Date BYPASS DESCENDING COLON TO CUTANEOUS, OPEN APPROACH [id number] 07/12/18 EXCISION OF L LOW LEG SUBCU/FASCIA, OPEN APPROACH [id number] 07/12/18 EXCISION OF SACRUM, OPEN APPROACH [id number] 07/12/18 EXCISION OF SIGMOID COLON, OPEN APPROACH [id number] 07/12/18 RESPIRATORY VENTILATION, LESS THAN 24 CONSECUTIVE HOURS [id number] 07/12/18 Infectious Disease Assmt/Plan - Problem List Patient Problems: All Active Problems Anasarca (Acute) R60.1 Anemia (Acute) D64.9 CAD (coronary artery disease) (Acute) I25.10 CHF (congestive heart failure) (Acute) I50.9 CKD (chronic kidney disease) (Acute) N18.9 HTN (hypertension) (Acute) I10 UTI (urinary tract infection) (Acute) sacral stage 4 wound (Acute) - Assessment Assessment: 1. UTI 2. Staph CN in blood contaminant. 3. Hypoglycemia. 4. Diabetes mellitus type 1 with episodes of hypoglycemia. 5. Hypertension. 6. Anemia of chronic disease. 7. Coronary artery disease, 8. CHF.. 9. Anasarca 10. 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 11. sacral stage 4 wound. No evidence of osteimyelitis, 12. S/p Diverting colostomy. - Plan Plan: D c tygacil. wound care. Nutritional Asmnt/Malnutr-PDOC - Dietary Evaluation Malnutrition Findings (Please click <Entered> for more info): Nutritional Asmnt/Malnutrition Start: 07/13/18 13: 54 Text: Status: Complete Freq: Protocol: Document 07/13/18 13:56 MMULHERN (Rec: 07/13/18 14:10 MMULHERN SAAD- FN) Nutritional Asmnt/Malnutrition Patient General Information Nutritional Screening Consult Diagnosis ESRD, anasarca Pertinent Medical Hx/Surgical Hx Seizure, hep C, diabetes, CAD, HTN, CVA, quadreplegia, Parkinsons, ESRD Subjective Information Consult received for "Diabetic ". Per nursing notes, patient receives hemodialysis MWF and patient is non-verbal. Patient with 2+ pitting edema. Current Diet Order/ Nutrition Support Renal diet Patient / S.O Not Indicated Pertinent Medications D50W, D5-0.45NS @50 ml/hr, Glucagon, Novolog Pertinent Labs (07/13) Na 134, BUN 48, Cr 2.9, glucose 41-137, Ca 8.2, BNP 515, albumin 2 Nutritional Hx/Data Height 1.73 m Height (Calculated Centimeters) 172.7 Current Weight (lbs) 113.852 kg Weight (Calculated Kilograms) 113.9 Weight (Calculated Grams) 228475.7 [place] Body Weight 140 % [place] Body Weight 179 Body Mass Index (BMI) 38.1 Recent Weight Change No Weight Status Morbidly Obese GI Symptoms GI Symptoms None Last BM 07/13 x 1 Difficult in: Chewing Food Allergies No Cultural/Ethnic/Sabianist Belief none indicated Usual diet at home unknown Skin Integrity/Comment: Arian 10, ulceration on sacrum, left lower leg, abrasion on L heel, scar on right leg. Current %PO Good (75-100%) Estimated Nutritional Goals BEE in Kcals: Adj wt of IBW Calories/Kcals/Kg 27-32 kcal/kg (using 76.2kg ADj wt) Kcals Calculated ~0983-5611 kcal/day Protein g/k.2-1.5 gm/kg using Adj wt Protein Calculated ~90-115 gm/day Fluid: ml Per MD due to HD Nutritional Problem 2. Problem Problem Altered nutrition related lab values related to Etiology episodes of hypoglycemia, electrolyte imbalance aeb Signs/Symptoms: Na 134, glucose 41-137, Ca 8.2 1. Problem Problem Increased nutrient needs related to Etiology hypermetabolic state, impaired skin integrity aeb Signs/Symptoms: Pt on Hemodialysis and with multiple ulcerations Intervention/Recommendation Comments 1. Continue Renal diet as tolerated by patient. No need for DM restriction at this time due to hypoglycemia. 2. Consider fluid restriction due to HD, hyponatremia and edema. 3. Consider adding Prosource 1 packet with each meal for an additional 45gm protein. Expected Outcomes/Goals Expected Outcomes/Goals Oral intake >75% of meals, weight stable or trend toward ideal body weight, nutrition related labs WNL
[2018-07-31] MEDS: Epoetin Alfa 20000 Units/mL Vial SUBQ SCH (13:46)
[2018-07-31] MEDS: Atorvastatin Calcium 10 MG TAB PO SCH (20:42)
[2018-08-01] MEDS: Albuterol/Ipratropium Neb 3 ML AERS HHN SCH ×4 (01:22→19:39)
[2018-08-01 06:49] LABS: ALB/GLOB RATIO 0.6 (1.0-1.8); ALBUMIN 1.6 gm/dL (3.7-5.3); ANION GAP 10.4 (7.0-16.0); BILIRUBIN,TOTAL 0.4 mg/dL (0.3-1.0); CALCIUM SERUM 8.5 mg/dL (8.6-10.3); CARBON DIOXIDE 26.5 mEq/L (21.0-31.0); CREATININE - SERUM 2.8 mg/dL (0.6-1.2); POTASSIUM SERUM 3.9 mEq/L (3.5-5.1); TOTAL PROTEIN,SERUM 4.5 gm/dL (6.0-8.3)
[2018-08-01 06:51] LABS: % EOSINOPHILS 0.4 % (0.0-5.0); % LYMPHOCYTES 36.4 % (20.0-50.0); % MONOCYTES 13.4 % (2.0-10.0); % NEUTROPHILS 49.8 % (40.0-80.0); HEMATOCRIT 23.1 % (41.0-60); LYMPHOCYTE ABSOLUTE 2.3 Th/cmm (1.5-3.0); MEAN CELL VOLUME 86.8 fl (81-100); MEAN CORPUSCULAR HEMOGLOBIN 29.4 pg (27.0-31.0); MEAN CORPUSCULAR HGB CONC 33.9 pg (28.0-36.0); MEAN PLATELET VOLUME 7.4 fl; MONOCYTE ABSOLUTE 0.8 Th/cmm (0.3-1.0); NEUTROPHILE ABSOLUTE 3.2 Th/cmm (1.8-8.0); PLATELET COUNT 139 Th/cmm (150-400); RED BLOOD COUNT 2.66 Mil/cmm (3.80-5.10)
[2018-08-01] MEDS: INSULIN ASPART SLIDING SCALE 100 UNITS/ML UNIT SUBQ SCH ×4 (06:52→21:12)
[2018-08-01] MEDS: Levothyroxine 0.025 Mg Tab PO SCH (06:52)
[2018-08-01 06:54] LABS: HEMOGLOBIN 7.8 gm/dL (12-16); WHITE BLOOD COUNT 6.3 Th/cmm (4.8-10.8)
[2018-08-01] MEDS: Lactobacillus Rhamnosus GG 15 Billion CFU CAP.SPRINK PO SCH (08:37)
[2018-08-01] MEDS: Vitamin B Complex w/Vitamin C Tab PO SCH (08:37)
[2018-08-01] MEDS: Docusate Sodium 100 mg/10 mL UD PO SCH ×2 (08:38→17:30)
[2018-08-01] MEDS: Venelex 60gm Tube TP SCH (11:41)
[2018-08-01] MEDS ORDERED: Albumin 25% 25gm/100mL 25 GM/100 ML BTL IV ONE ×2 (16:22→16:24)
--- NOTE | 2018-08-01 16:22 | General Progress Note ---
Subjective - Review of Systems Service Date: 08/01/18 Subjective: alert, comfortable, on puree diet Objective - Results Result Diagrams: 08/01/18 06:11 08/01/18 06:11 Recent Labs: Laboratory Last Values WBC 6.3 Th/cmm (4.8-10.8) D 08/01/18 06:11 RBC 2.66 Mil/cmm (3.80-5.10) L 08/01/18 06:11 Hgb 7.8 gm/dL (12-16) L* 08/01/18 06:11 Hct 23.1 % (41.0-60) L 08/01/18 06:11 MCV 86.8 fl (81-100) 08/01/18 06:11 MCH 29.4 pg (27.0-31.0) 08/01/18 06:11 MCHC Differential 33.9 pg (28.0-36.0) 08/01/18 06:11 RDW 17.0 % (11.5-20.0) 08/01/18 06:11 Plt Count 139 Th/cmm (150-400) L 08/01/18 06:11 MPV 7.4 fl 08/01/18 06:11 Add Manual Diff YES 07/28/18 04:20 Neutrophils % 49.8 % (40.0-80.0) 08/01/18 06:11 Band Neutrophils % 0 % (0-10) 07/28/18 04:20 Lymphocytes % 36.4 % (20.0-50.0) 08/01/18 06:11 Monocytes % 13.4 % (2.0-10.0) H 08/01/18 06:11 Eosinophils % 0.4 % (0.0-5.0) 08/01/18 06:11 Basophils % 0.0 % (0.0-2.0) 08/01/18 06:11 Neutrophils (Manual) 60 % (40-80) 07/28/18 04:20 Lymphocytes 30 % (20-50) 07/28/18 04:20 Monocytes 10 % (2-10) 07/28/18 04:20 Eosinophils 0 % (0-5) 07/28/18 04:20 Basophils 0 % (0-3) 07/28/18 04:20 Platelet Estimate DECREASED PLATELETS (NORMAL) 07/28/18 04:20 PT 17.0 SECONDS (9.5-11.5) H 07/28/18 04:20 INR 1.67 (0.5-1.4) H 07/28/18 04:20 PTT (Actin FS) 43.0 SECONDS (26.0-38.0) H 07/20/18 08:08 Specimen Source Arterial 07/23/18 17:00 Sample Site LB 07/23/18 17:00 pH 7.44 (7.35-7.45) 07/23/18 17:00 pCO2 44.0 mmHg (35.0-45.0) 07/23/18 17:00 pO2 86.0 mmHg (80.0-100.0) 07/23/18 17:00 HCO3 28.9 mEq/L (20.0-26.0) H 07/23/18 17:00 Base Excess 5.1 mEq/L (-3.0-3.0) H 07/23/18 17:00 O2 Saturation 97.0 % (92.0-100.0) 07/23/18 17:00 [place] Test NA 07/23/18 17:00 Vent Rate NA 07/23/18 17:00 Inspired O2 40 07/23/18 17:00 Tidal Volume NA 07/23/18 17:00 PEEP NA 07/23/18 17:00 Pressure (ins/psv/peep) NA 07/23/18 17:00 Critical Value E.QUINTEROS 07/23/18 17:00 Sodium 137 mEq/L (136-145) 08/01/18 06:11 Potassium 3.9 mEq/L (3.5-5.1) 08/01/18 06:11 Chloride 104 mEq/L (98-107) 08/01/18 06:11 Carbon Dioxide 26.5 mEq/L (21.0-31.0) 08/01/18 06:11 Anion Gap 10.4 (7.0-16.0) 08/01/18 06:11 BUN 14 mg/dL (7-25) 08/01/18 06:11 Creatinine 2.8 mg/dL (0.6-1.2) H 08/01/18 06:11 Est GFR ( Amer) 23.0 ml/min (>90) 08/01/18 06:11 Est GFR (Non-Af Amer) 19.0 ml/min 08/01/18 06:11 BUN/Creatinine Ratio 5.0 08/01/18 06:11 Glucose 155 mg/dL (70-105) H 08/01/18 06:11 POC Glucose 153 MG/DL (70 - 105) H 08/01/18 06:45 Whole Bld Lactic Acid 1.29 mmol/L (0.60-1.99) 07/12/18 20:50 Calcium 8.5 mg/dL (8.6-10.3) L 08/01/18 06:11 Magnesium 1.6 mg/dL (1.9-2.7) L 07/21/18 05:00 Total Bilirubin 0.4 mg/dL (0.3-1.0) 08/01/18 06:11 AST 19 U/L (13-39) 08/01/18 06:11 ALT 9 U/L (7-52) 08/01/18 06:11 Alkaline Phosphatase 120 U/L (34-104) H 08/01/18 06:11 Creatine Kinase 20 U/L (30-223) L 07/12/18 20:50 Troponin I 0.49 ng/mL (0.01-0.05) H* 07/13/18 15:20 B-Natriuretic Peptide 515.0 pg/mL (5.0-100.0) H 07/13/18 04:00 Total Protein 4.5 gm/dL (6.0-8.3) L 08/01/18 06:11 Albumin 1.6 gm/dL (3.7-5.3) L 08/01/18 06:11 Globulin 2.9 gm/dL 08/01/18 06:11 Albumin/Globulin Ratio 0.6 (1.0-1.8) L 08/01/18 06:11 Triglycerides 53 mg/dL (<150) 07/13/18 04:00 Cholesterol 41 mg/dL (<200) 07/13/18 04:00 LDL Cholesterol Direct 11 mg/dL (75-193) L 07/13/18 04:00 HDL Cholesterol 24 mg/dL (23-92) 07/13/18 04:00 TSH 1.21 uIU/ml (0.34-5.60) 07/13/18 04:00 Urine Source [place] 07/12/18 20:50 Urine Color YELLOW 07/12/18 20:50 Urine Clarity CLOUDY (CLEAR) H 07/12/18 20:50 Urine pH 8.5 (4.6 - 8.0) 07/12/18 20:50 Ur Specific [place] 1.015 (1.005-1.030) 07/12/18 20:50 Urine Protein 100 mg/dL (NEGATIVE) H 07/12/18 20:50 Urine Glucose (UA) NEGATIVE mg/dL (NEGATIVE) 07/12/18 20:50 Urine Ketones NEGATIVE mg/dL (NEGATIVE) 07/12/18 20:50 Urine Blood TRACE (NEGATIVE) 07/12/18 20:50 Urine Nitrate NEGATIVE (NEGATIVE) 07/12/18 20:50 Urine Bilirubin NEGATIVE (NEGATIVE) 07/12/18 20:50 Urine Urobilinogen 0.2 E.U./dL (0.2 - 1.0) 07/12/18 20:50 Ur Leukocyte Esterase LARGE (NEGATIVE) H 07/12/18 20:50 Urine RBC 2-5 /hpf (0-5) 07/12/18 20:50 Urine WBC >100 /hpf (0-5) H 07/12/18 20:50 Ur Epithelial Cells MODERATE /lpf (FEW) 07/12/18 20:50 Urine Bacteria MANY /hpf (NONE SEEN) H 07/12/18 20:50 Amikacin Peak 35.4 ug/mL (20.0-30.0) H 07/25/18 23:55 Amikacin Trough 14.1 ug/mL (1.0-8.0) H 07/25/18 20:30 Random Amikacin 14.8 ug/ml (1.0-30.0) 07/25/18 17:00 Random Vancomycin 25.5 ug/mL (5.0-40.0) 07/24/18 05:50 Crossmatch See Detail 07/28/18 07:30 - Physical Exam Vitals and I&O: Vital Signs Temp 97.7 F 08/01/18 15:50 Pulse 104 08/01/18 15:50 Resp 18 08/01/18 15:50 BP 87/28 08/01/18 15:50 Pulse Ox 98 08/01/18 15:50 Intake & Output 07/31/18 08/01/18 08/01/18 18:59 06:59 18:59 Intake Total 240 120 Output Total 2600 60 Balance -2360 60 Weight (lbs) 105.687 kg 105.687 kg 105.687 kg Intake: Oral 240 120 Output: Drainage 50 Sacrum 50 Urine 10 Hemodialysis 2600 Other: # Bowel Movements 1 Weight Source Bedscale Bedscale Bedscale Active Medications: Current Medications Acetaminophen (Tylenol) 650 mg PO Q6H PRN PRN Reason: Mild Pain or Fever >101 Stop: 09/11/18 15:14 Acetaminophen/Hydrocodone Bitart ([place] 5mg/325mg) 1 tab PO Q4H PRN PRN Reason: Pain (Moderate) Stop: 09/27/18 14:34 Last Admin: 07/31/18 21:53 Dose: 1 tab Albuterol/Ipratropium (Duoneb Neb) 3 ml HHN Q4HRT PRN PRN Reason: Shortness of Breath or Wheeze Stop: 09/11/18 15:14 Albuterol/Ipratropium (Duoneb Neb) 3 ml HHN Q6HRT [facility] Stop: 09/21/18 18:59 Last Admin: 08/01/18 13:00 Dose: 3 ml Ascorbic Acid (Vitamin C) 500 mg PO DAILY [facility] Stop: 09/12/18 08:59 Last Admin: 08/01/18 08:38 Dose: 500 mg Atorvastatin Calcium (Lipitor) 20 mg PO HS [facility] Stop: 09/11/18 20:59 Last Admin: 07/31/18 20:42 Dose: 20 mg [place] Oil/[place] Balsam/Trypsin (Venelex) 1 appl TP DAILY [facility] Stop: 09/13/18 08:59 Last Admin: 08/01/18 11:41 Dose: Not Given Dextrose (Glutose 40%) 18.75 gm PO PRN PRN PRN Reason: Blood Glucose less than 70 Stop: 09/11/18 04:10 Docusate Sodium (Colace) 100 mg PO BID [facility] Stop: 09/11/18 16:59 Last Admin: 08/01/18 08:38 Dose: 100 mg Epoetin Evelio (Epogen) 10,000 units SUBQ MoWeFr [facility] Stop: 09/29/18 12:44 Last Admin: 07/31/18 13:46 Dose: 10,000 units Famotidine (Pepcid) 20 mg PO DAILY [facility] Stop: 09/12/18 08:59 Last Admin: 08/01/18 08:38 Dose: 20 mg Folic Acid (Folate) 1 mg PO DAILY [facility] Stop: 09/12/18 08:59 Last Admin: 08/01/18 08:38 Dose: 1 mg Glucagon (Glucagen) 1 mg IM PRN PRN PRN Reason: Blood Glucose less than 70 Stop: 09/11/18 04:10 Heparin Sodium (Porcine) (Heparin) 5,000 units SUBQ Q12HR [facility] Stop: 09/26/18 20:59 Last Admin: 08/01/18 08:38 Dose: 5,000 units Insulin Aspart (Novolog Insulin Sliding Scale) 0 units SUBQ ACHS [facility]; Protocol Stop: 09/28/18 11:29 Last Admin: 08/01/18 12:41 Dose: Not Given Lactobacillus Rhamnosus (Culturelle 15b) 1 each PO DAILY [facility] Stop: 09/13/18 13:59 Last Admin: 08/01/18 08:37 Dose: 1 each Levothyroxine Sodium (Synthroid) 0.025 mg PO QDAC [facility] Stop: 09/12/18 07:29 Last Admin: 08/01/18 06:52 Dose: 0.025 mg Miscellaneous (Probiotic Screen) 1 ea MC PRN PRN PRN Reason: PROTOCOL Stop: 09/13/18 11:44 Miscellaneous (Clinical Monitoring) 1 ea MC DAILY PRN PRN Reason: RENAL DOSING Stop: 09/27/18 08:38 Oxcarbazepine (Trileptal) 600 mg PO BID [facility] Stop: 09/11/18 16:59 Last Admin: 08/01/18 08:38 Dose: 600 mg Risperidone (Risperdal) 2 mg PO HS [facility] Stop: 09/11/18 20:59 Last Admin: 07/31/18 20:43 Dose: 2 mg Senna (Senna) 17.2 mg PO BID [facility] Stop: 09/11/18 16:59 Last Admin: 08/01/18 08:38 Dose: 17.2 mg Sevelamer Carbonate (Renvela) 800 mg PO TIDWM [facility] Stop: 09/11/18 16:59 Last Admin: 08/01/18 12:41 Dose: Not Given Vitamin B Complex/Vit C/Folic Acid (Vitamin B Complex W/Vitamin C) 1 tab PO DAILY [facility] Stop: 09/12/18 08:59 Last Admin: 08/01/18 08:37 Dose: 1 tab Zinc Sulfate (Zinc Sulfate) 220 mg PO DAILY [facility] Stop: 09/12/18 08:59 Last Admin: 08/01/18 08:37 Dose: 220 mg General: Alert, Mild distress HEENT: Atraumatic, EOMI Neck: Supple, +2 carotid pulse wo bruit Cardiovascular: Regular rate, Normal S1, Normal S2 Lungs: Other (scattered rhonchi) Abdomen: Bowel sounds, Soft Extremities: Edema ((+) 2-3 edema), Other ((+) 2 bipedal edema) Neurological: Sensation intact Skin: no Rash Psych/Mental Status: Mood NL - Procedures Procedures: Procedures Procedure Code Date BYPASS DESCENDING COLON TO CUTANEOUS, OPEN APPROACH [id number] 07/12/18 EXCISION OF L LOW LEG SUBCU/FASCIA, OPEN APPROACH [id number] 07/12/18 EXCISION OF SACRUM, OPEN APPROACH [id number] 07/12/18 EXCISION OF SIGMOID COLON, OPEN APPROACH [id number] 07/12/18 RESPIRATORY VENTILATION, LESS THAN 24 CONSECUTIVE HOURS [id number] 07/12/18 Assessment/Plan - Problem List Patient Problems: All Active Problems Anasarca (Acute) R60.1 Anemia (Acute) D64.9 CAD (coronary artery disease) (Acute) I25.10 CHF (congestive heart failure) (Acute) I50.9 CKD (chronic kidney disease) (Acute) N18.9 HTN (hypertension) (Acute) I10 UTI (urinary tract infection) (Acute) sacral stage 4 wound (Acute) - Assessment Assessment: ESRD on HD Hypothyroid Parkinson Ds. Fnc Quad Hep B,C GERD Left Calf ulcer Sacral Decub ulcer stage 4, w/ wound vacuum Cholelithiasis B/L HAP w/ effusions Peripheral edema Left SFV DVT S/P Diverting Colostomy - Plan Plan: Lab - Result Diagrams 07/14/18 05:00 07/14/18 05:00 Current Medications Acetaminophen (Tylenol) 650 mg PO Q6H PRN PRN Reason: Pain or Fever >101 Stop: 09/11/18 15:14 Acetaminophen/Hydrocodone Bitart ([place] 5mg/325mg) 1 tab PO Q6H PRN PRN Reason: Pain (Severe) Stop: 09/11/18 15:14 Albuterol/Ipratropium (Duoneb Neb) 3 ml HHN Q4HRT PRN PRN Reason: Shortness of Breath or Wheeze Stop: 09/11/18 15:14 Ascorbic Acid (Vitamin C) 500 mg PO DAILY [facility] Stop: 09/12/18 08:59 Last Admin: 07/14/18 08:27 Dose: 500 mg Atorvastatin Calcium (Lipitor) 20 mg PO HS [facility] Stop: 09/11/18 20:59 Last Admin: 07/13/18 21:05 Dose: 20 mg Dextrose (D50w) 50 ml IVP PRN PRN PRN Reason: Blood Glucose less than 70 Stop: 09/11/18 04:10 Dextrose (Glutose 40%) 18.75 gm PO PRN PRN PRN Reason: Blood Glucose less than 70 Stop: 09/11/18 04:10 Docusate Sodium (Colace) 100 mg PO BID [facility] Stop: 09/11/18 16:59 Last Admin: 07/14/18 08:27 Dose: 100 mg Famotidine (Pepcid) 20 mg PO DAILY [facility] Stop: 09/12/18 08:59 Last Admin: 07/14/18 08:27 Dose: 20 mg Folic Acid (Folate) 1 mg PO DAILY [facility] Stop: 09/12/18 08:59 Last Admin: 07/14/18 08:27 Dose: 1 mg Glucagon (Glucagen) 1 mg IM PRN PRN PRN Reason: Blood Glucose less than 70 Stop: 09/11/18 04:10 Piperacillin Sod/Tazobactam (Sod 2.25 gm/ Sodium Chloride) 50 mls @ 100 mls/hr IV Q6H [facility] Stop: 09/11/18 05:59 Last Admin: 07/14/18 06:05 Dose: Not Given Dextrose/Sodium Chloride (D5-0.45ns) 1,000 mls @ 50 mls/hr IV .Q20H [facility] Stop: 09/11/18 02:29 Last Admin: 07/13/18 04:03 Dose: 50 mls/hr Insulin Aspart (Novolog Insulin Sliding Scale) 0 units SUBQ Q6HR [facility]; Protocol Stop: 09/11/18 05:59 Last Admin: 07/14/18 06:05 Dose: Not Given Levothyroxine Sodium (Synthroid) 0.025 mg PO QDAC [facility] Stop: 09/12/18 07:29 Last Admin: 07/14/18 06:35 Dose: 0.025 mg Miscellaneous (Vancomycin Iv Per Pharmacy) 1 ea MC PRN PRN PRN Reason: PROTOCOL Stop: 09/10/18 23:40 Oxcarbazepine (Trileptal) 600 mg PO BID [facility] Stop: 09/11/18 16:59 Last Admin: 07/14/18 08:27 Dose: 600 mg Risperidone (Risperdal) 2 mg PO HS [facility] Stop: 09/11/18 20:59 Last Admin: 07/13/18 21:05 Dose: 2 mg Senna (Senna) 17.2 mg PO BID [facility] Stop: 09/11/18 16:59 Last Admin: 07/14/18 08:27 Dose: 17.2 mg Sevelamer Carbonate (Renvela) 800 mg PO TIDWM [facility] Stop: 09/11/18 16:59 Last Admin: 07/14/18 08:27 Dose: 800 mg Temazepam (Restoril) 15 mg PO HS PRN; Protocol PRN Reason: Insomnia Stop: 09/11/18 15:14 Vitamin B Complex/Vit C/Folic Acid (Vitamin B Complex W/Vitamin C) 1 tab PO DAILY [facility] Stop: 09/12/18 08:59 Last Admin: 07/14/18 08:27 Dose: 1 tab Zinc Sulfate (Zinc Sulfate) 220 mg PO DAILY [facility] Stop: 09/12/18 08:59 Last Admin: 07/14/18 08:27 Dose: 220 m Lab - Result Diagrams 08/01/18 06:11 08/01/18 06:11 continue wound care Pt. had diverting colostomy CXR less congestion, effusion schedule for HD today started on Puree diet Hgb/Hct stable @ 7.8/23.1 albumin for BP support Nutritional Asmnt/Malnutr-PDOC - Dietary Evaluation Malnutrition Findings (Please click <Entered> for more info): Nutritional Asmnt/Malnutrition Start: 07/13/18 13: 54 Text: Status: Complete Freq: Protocol: Document 07/13/18 13:56 [email or web address] (Rec: 07/13/18 14:10 ALDAIR NASH- [id number]) Nutritional Asmnt/Malnutrition Patient General Information Nutritional Screening Consult Diagnosis ESRD, anasarca Pertinent Medical Hx/Surgical Hx Seizure, hep C, diabetes, CAD, HTN, CVA, quadreplegia, Parkinsons, ESRD Subjective Information Consult received for "Diabetic ". Per nursing notes, patient receives hemodialysis MWF and patient is non-verbal. Patient with 2+ pitting edema. Current Diet Order/ Nutrition Support Renal diet Patient / S.O Not Indicated Pertinent Medications D50W, D5-0.45NS @50 ml/hr, Glucagon, Novolog Pertinent Labs (07/13) Na 134, BUN 48, Cr 2.9, glucose 41-137, Ca 8.2, BNP 515, albumin 2 Nutritional Hx/Data Height 1.73 m Height (Calculated Centimeters) 172.7 Current Weight (lbs) 113.852 kg Weight (Calculated Kilograms) 113.9 Weight (Calculated Grams) 143935.7 [place] Body Weight 140 % [place] Body Weight 179 Body Mass Index (BMI) 38.1 Recent Weight Change No Weight Status Morbidly Obese GI Symptoms GI Symptoms None Last BM 07/13 x 1 Difficult in: Chewing Food Allergies No Cultural/Ethnic/Moravian Belief none indicated Usual diet at home unknown Skin Integrity/Comment: Arian 10, ulceration on sacrum, left lower leg, abrasion on L heel, scar on right leg. Current %PO Good (75-100%) Estimated Nutritional Goals BEE in Kcals: Adj wt of IBW Calories/Kcals/Kg 27-32 kcal/kg (using 76.2kg ADj wt) Kcals Calculated ~7092-0154 kcal/day Protein g/k.2-1.5 gm/kg using Adj wt Protein Calculated ~90-115 gm/day Fluid: ml Per MD due to HD Nutritional Problem 2. Problem Problem Altered nutrition related lab values related to Etiology episodes of hypoglycemia, electrolyte imbalance aeb Signs/Symptoms: Na 134, glucose 41-137, Ca 8.2 1. Problem Problem Increased nutrient needs related to Etiology hypermetabolic state, impaired skin integrity aeb Signs/Symptoms: Pt on Hemodialysis and with multiple ulcerations Intervention/Recommendation Comments 1. Continue Renal diet as tolerated by patient. No need for DM restriction at this time due to hypoglycemia. 2. Consider fluid restriction due to HD, hyponatremia and edema. 3. Consider adding Prosource 1 packet with each meal for an additional 45gm protein. Expected Outcomes/Goals Expected Outcomes/Goals Oral intake >75% of meals, weight stable or trend toward ideal body weight, nutrition related labs WNL
--- NOTE | 2018-08-01 16:29 | Internal Medicine Prog Note ---
Internal Medicine Subjective - Subjective Service Date: 08/01/18 Patient is:: awake Per staff patient has:: tolerating meds Internal Medicine Objective - Results Result Diagrams: 08/01/18 06:11 08/01/18 06:11 Recent Labs: Laboratory Last Values WBC 6.3 Th/cmm (4.8-10.8) D 08/01/18 06:11 RBC 2.66 Mil/cmm (3.80-5.10) L 08/01/18 06:11 Hgb 7.8 gm/dL (12-16) L* 08/01/18 06:11 Hct 23.1 % (41.0-60) L 08/01/18 06:11 MCV 86.8 fl (81-100) 08/01/18 06:11 MCH 29.4 pg (27.0-31.0) 08/01/18 06:11 MCHC Differential 33.9 pg (28.0-36.0) 08/01/18 06:11 RDW 17.0 % (11.5-20.0) 08/01/18 06:11 Plt Count 139 Th/cmm (150-400) L 08/01/18 06:11 MPV 7.4 fl 08/01/18 06:11 Add Manual Diff YES 07/28/18 04:20 Neutrophils % 49.8 % (40.0-80.0) 08/01/18 06:11 Band Neutrophils % 0 % (0-10) 07/28/18 04:20 Lymphocytes % 36.4 % (20.0-50.0) 08/01/18 06:11 Monocytes % 13.4 % (2.0-10.0) H 08/01/18 06:11 Eosinophils % 0.4 % (0.0-5.0) 08/01/18 06:11 Basophils % 0.0 % (0.0-2.0) 08/01/18 06:11 Neutrophils (Manual) 60 % (40-80) 07/28/18 04:20 Lymphocytes 30 % (20-50) 07/28/18 04:20 Monocytes 10 % (2-10) 07/28/18 04:20 Eosinophils 0 % (0-5) 07/28/18 04:20 Basophils 0 % (0-3) 07/28/18 04:20 Platelet Estimate DECREASED PLATELETS (NORMAL) 07/28/18 04:20 PT 17.0 SECONDS (9.5-11.5) H 07/28/18 04:20 INR 1.67 (0.5-1.4) H 07/28/18 04:20 PTT (Actin FS) 43.0 SECONDS (26.0-38.0) H 07/20/18 08:08 Specimen Source Arterial 07/23/18 17:00 Sample Site LB 07/23/18 17:00 pH 7.44 (7.35-7.45) 07/23/18 17:00 pCO2 44.0 mmHg (35.0-45.0) 07/23/18 17:00 pO2 86.0 mmHg (80.0-100.0) 07/23/18 17:00 HCO3 28.9 mEq/L (20.0-26.0) H 07/23/18 17:00 Base Excess 5.1 mEq/L (-3.0-3.0) H 07/23/18 17:00 O2 Saturation 97.0 % (92.0-100.0) 07/23/18 17:00 [place] Test NA 07/23/18 17:00 Vent Rate NA 07/23/18 17:00 Inspired O2 40 07/23/18 17:00 Tidal Volume NA 07/23/18 17:00 PEEP NA 07/23/18 17:00 Pressure (ins/psv/peep) NA 07/23/18 17:00 Critical Value E.QUINTEROS 07/23/18 17:00 Sodium 137 mEq/L (136-145) 08/01/18 06:11 Potassium 3.9 mEq/L (3.5-5.1) 08/01/18 06:11 Chloride 104 mEq/L (98-107) 08/01/18 06:11 Carbon Dioxide 26.5 mEq/L (21.0-31.0) 08/01/18 06:11 Anion Gap 10.4 (7.0-16.0) 08/01/18 06:11 BUN 14 mg/dL (7-25) 08/01/18 06:11 Creatinine 2.8 mg/dL (0.6-1.2) H 08/01/18 06:11 Est GFR ( Amer) 23.0 ml/min (>90) 08/01/18 06:11 Est GFR (Non-Af Amer) 19.0 ml/min 08/01/18 06:11 BUN/Creatinine Ratio 5.0 08/01/18 06:11 Glucose 155 mg/dL (70-105) H 08/01/18 06:11 POC Glucose 153 MG/DL (70 - 105) H 08/01/18 06:45 Whole Bld Lactic Acid 1.29 mmol/L (0.60-1.99) 07/12/18 20:50 Calcium 8.5 mg/dL (8.6-10.3) L 08/01/18 06:11 Magnesium 1.6 mg/dL (1.9-2.7) L 07/21/18 05:00 Total Bilirubin 0.4 mg/dL (0.3-1.0) 08/01/18 06:11 AST 19 U/L (13-39) 08/01/18 06:11 ALT 9 U/L (7-52) 08/01/18 06:11 Alkaline Phosphatase 120 U/L (34-104) H 08/01/18 06:11 Creatine Kinase 20 U/L (30-223) L 07/12/18 20:50 Troponin I 0.49 ng/mL (0.01-0.05) H* 07/13/18 15:20 B-Natriuretic Peptide 515.0 pg/mL (5.0-100.0) H 07/13/18 04:00 Total Protein 4.5 gm/dL (6.0-8.3) L 08/01/18 06:11 Albumin 1.6 gm/dL (3.7-5.3) L 08/01/18 06:11 Globulin 2.9 gm/dL 08/01/18 06:11 Albumin/Globulin Ratio 0.6 (1.0-1.8) L 08/01/18 06:11 Triglycerides 53 mg/dL (<150) 07/13/18 04:00 Cholesterol 41 mg/dL (<200) 07/13/18 04:00 LDL Cholesterol Direct 11 mg/dL (75-193) L 07/13/18 04:00 HDL Cholesterol 24 mg/dL (23-92) 07/13/18 04:00 TSH 1.21 uIU/ml (0.34-5.60) 07/13/18 04:00 Urine Source [place] 07/12/18 20:50 Urine Color YELLOW 07/12/18 20:50 Urine Clarity CLOUDY (CLEAR) H 07/12/18 20:50 Urine pH 8.5 (4.6 - 8.0) 07/12/18 20:50 Ur Specific [place] 1.015 (1.005-1.030) 07/12/18 20:50 Urine Protein 100 mg/dL (NEGATIVE) H 07/12/18 20:50 Urine Glucose (UA) NEGATIVE mg/dL (NEGATIVE) 07/12/18 20:50 Urine Ketones NEGATIVE mg/dL (NEGATIVE) 07/12/18 20:50 Urine Blood TRACE (NEGATIVE) 07/12/18 20:50 Urine Nitrate NEGATIVE (NEGATIVE) 07/12/18 20:50 Urine Bilirubin NEGATIVE (NEGATIVE) 07/12/18 20:50 Urine Urobilinogen 0.2 E.U./dL (0.2 - 1.0) 07/12/18 20:50 Ur Leukocyte Esterase LARGE (NEGATIVE) H 07/12/18 20:50 Urine RBC 2-5 /hpf (0-5) 07/12/18 20:50 Urine WBC >100 /hpf (0-5) H 07/12/18 20:50 Ur Epithelial Cells MODERATE /lpf (FEW) 07/12/18 20:50 Urine Bacteria MANY /hpf (NONE SEEN) H 07/12/18 20:50 Amikacin Peak 35.4 ug/mL (20.0-30.0) H 07/25/18 23:55 Amikacin Trough 14.1 ug/mL (1.0-8.0) H 07/25/18 20:30 Random Amikacin 14.8 ug/ml (1.0-30.0) 07/25/18 17:00 Random Vancomycin 25.5 ug/mL (5.0-40.0) 07/24/18 05:50 Crossmatch See Detail 07/28/18 07:30 - Physical Exam Vitals and I&O: Vital Signs Temp 97.7 F 08/01/18 15:50 Pulse 104 08/01/18 15:50 Resp 18 08/01/18 15:50 BP 87/28 08/01/18 15:50 Pulse Ox 98 08/01/18 15:50 Intake & Output 07/31/18 08/01/18 08/01/18 18:59 06:59 18:59 Intake Total 240 120 Output Total 2600 60 Balance -2360 60 Weight (lbs) 233 lb 233 lb 233 lb Intake: Oral 240 120 Output: Drainage 50 Sacrum 50 Urine 10 Hemodialysis 2600 Other: # Bowel Movements 1 Weight Source Bedscale Bedscale Bedscale Active Medications: Current Medications Acetaminophen (Tylenol) 650 mg PO Q6H PRN PRN Reason: Mild Pain or Fever >101 Stop: 09/11/18 15:14 Acetaminophen/Hydrocodone Bitart ([place] 5mg/325mg) 1 tab PO Q4H PRN PRN Reason: Pain (Moderate) Stop: 09/27/18 14:34 Last Admin: 07/31/18 21:53 Dose: 1 tab Albuterol/Ipratropium (Duoneb Neb) 3 ml HHN Q4HRT PRN PRN Reason: Shortness of Breath or Wheeze Stop: 09/11/18 15:14 Albuterol/Ipratropium (Duoneb Neb) 3 ml HHN Q6HRT [facility] Stop: 09/21/18 18:59 Last Admin: 08/01/18 13:00 Dose: 3 ml Ascorbic Acid (Vitamin C) 500 mg PO DAILY [facility] Stop: 09/12/18 08:59 Last Admin: 08/01/18 08:38 Dose: 500 mg Atorvastatin Calcium (Lipitor) 20 mg PO HS [facility] Stop: 09/11/18 20:59 Last Admin: 07/31/18 20:42 Dose: 20 mg [place] Oil/[place] Balsam/Trypsin (Venelex) 1 appl TP DAILY [facility] Stop: 09/13/18 08:59 Last Admin: 08/01/18 11:41 Dose: Not Given Dextrose (Glutose 40%) 18.75 gm PO PRN PRN PRN Reason: Blood Glucose less than 70 Stop: 09/11/18 04:10 Docusate Sodium (Colace) 100 mg PO BID [facility] Stop: 09/11/18 16:59 Last Admin: 08/01/18 08:38 Dose: 100 mg Epoetin Evelio (Epogen) 10,000 units SUBQ MoWeFr [facility] Stop: 09/29/18 12:44 Last Admin: 07/31/18 13:46 Dose: 10,000 units Famotidine (Pepcid) 20 mg PO DAILY [facility] Stop: 09/12/18 08:59 Last Admin: 08/01/18 08:38 Dose: 20 mg Folic Acid (Folate) 1 mg PO DAILY [facility] Stop: 09/12/18 08:59 Last Admin: 08/01/18 08:38 Dose: 1 mg Glucagon (Glucagen) 1 mg IM PRN PRN PRN Reason: Blood Glucose less than 70 Stop: 09/11/18 04:10 Heparin Sodium (Porcine) (Heparin) 5,000 units SUBQ Q12HR [facility] Stop: 09/26/18 20:59 Last Admin: 08/01/18 08:38 Dose: 5,000 units Albumin Human (Albuminar 25%) 25 gm in 100 mls @ 50 mls/hr IV X1 ONE Stop: 08/01/18 18:21 Albumin Human (Albuminar 25%) 25 gm in 100 mls @ 50 mls/hr IV X1 ONE Stop: 08/01/18 18:23 Insulin Aspart (Novolog Insulin Sliding Scale) 0 units SUBQ ACHS [facility]; Protocol Stop: 09/28/18 11:29 Last Admin: 08/01/18 12:41 Dose: Not Given Lactobacillus Rhamnosus (Culturelle 15b) 1 each PO DAILY [facility] Stop: 09/13/18 13:59 Last Admin: 08/01/18 08:37 Dose: 1 each Levothyroxine Sodium (Synthroid) 0.025 mg PO QDAC [facility] Stop: 09/12/18 07:29 Last Admin: 08/01/18 06:52 Dose: 0.025 mg Miscellaneous (Probiotic Screen) 1 ea MC PRN PRN PRN Reason: PROTOCOL Stop: 09/13/18 11:44 Miscellaneous (Clinical Monitoring) 1 ea MC DAILY PRN PRN Reason: RENAL DOSING Stop: 09/27/18 08:38 Oxcarbazepine (Trileptal) 600 mg PO BID [facility] Stop: 09/11/18 16:59 Last Admin: 08/01/18 08:38 Dose: 600 mg Risperidone (Risperdal) 2 mg PO HS [facility] Stop: 09/11/18 20:59 Last Admin: 07/31/18 20:43 Dose: 2 mg Senna (Senna) 17.2 mg PO BID [facility] Stop: 09/11/18 16:59 Last Admin: 08/01/18 08:38 Dose: 17.2 mg Sevelamer Carbonate (Renvela) 800 mg PO TIDWM [facility] Stop: 09/11/18 16:59 Last Admin: 08/01/18 12:41 Dose: Not Given Vitamin B Complex/Vit C/Folic Acid (Vitamin B Complex W/Vitamin C) 1 tab PO DAILY [facility] Stop: 09/12/18 08:59 Last Admin: 08/01/18 08:37 Dose: 1 tab Zinc Sulfate (Zinc Sulfate) 220 mg PO DAILY [facility] Stop: 09/12/18 08:59 Last Admin: 08/01/18 08:37 Dose: 220 mg General: weak, alert HEENT: NC/AT, PERRLA Neck: Supple Lungs: CTAB Abdomen: soft, non-tender, non-distended Extremities: other (sacrum ulcer wound vac) Neurological: alert - Procedures Procedures: Procedures Procedure Code Date BYPASS DESCENDING COLON TO CUTANEOUS, OPEN APPROACH [id number] 07/12/18 EXCISION OF L LOW LEG SUBCU/FASCIA, OPEN APPROACH [id number] 07/12/18 EXCISION OF SACRUM, OPEN APPROACH [id number] 07/12/18 EXCISION OF SIGMOID COLON, OPEN APPROACH [id number] 07/12/18 RESPIRATORY VENTILATION, LESS THAN 24 CONSECUTIVE HOURS [id number] 07/12/18 Internal Medicine Assmt/Plan - Assessment Assessment: 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 acute uti dm 1 anemia cad chf anasarca ckd stage 5 on hd - Plan Plan: dc planning to snf with wound vac hd as per renal continue current plan of care Nutritional Asmnt/Malnutr-PDOC - Dietary Evaluation Malnutrition Findings (Please click <Entered> for more info): Nutritional Asmnt/Malnutrition Start: 07/13/18 13: 54 Text: Status: Complete Freq: Protocol: Document 07/13/18 13:56 ALDAIR (Rec: 07/13/18 14:10 ALDAIR NASH- [id number]) Nutritional Asmnt/Malnutrition Patient General Information Nutritional Screening Consult Diagnosis ESRD, anasarca Pertinent Medical Hx/Surgical Hx Seizure, hep C, diabetes, CAD, HTN, CVA, quadreplegia, Parkinsons, ESRD Subjective Information Consult received for "Diabetic ". Per nursing notes, patient receives hemodialysis MWF and patient is non-verbal. Patient with 2+ pitting edema. Current Diet Order/ Nutrition Support Renal diet Patient / S.O Not Indicated Pertinent Medications D50W, D5-0.45NS @50 ml/hr, Glucagon, Novolog Pertinent Labs (07/13) Na 134, BUN 48, Cr 2.9, glucose 41-137, Ca 8.2, BNP 515, albumin 2 Nutritional Hx/Data Height 5 ft 8 in Height (Calculated Centimeters) 172.7 Current Weight (lbs) 251 lb Weight (Calculated Kilograms) 113.9 Weight (Calculated Grams) 946339.7 [place] Body Weight 140 % [place] Body Weight 179 Body Mass Index (BMI) 38.1 Recent Weight Change No Weight Status Morbidly Obese GI Symptoms GI Symptoms None Last BM 07/13 x 1 Difficult in: Chewing Food Allergies No Cultural/Ethnic/[employer] Belief none indicated Usual diet at home unknown Skin Integrity/Comment: Arian 10, ulceration on sacrum, left lower leg, abrasion on L heel, scar on right leg. Current %PO Good (75-100%) Estimated Nutritional Goals BEE in Kcals: Adj wt of IBW Calories/Kcals/Kg 27-32 kcal/kg (using 76.2kg ADj wt) Kcals Calculated ~2762-1104 kcal/day Protein g/k.2-1.5 gm/kg using Adj wt Protein Calculated ~90-115 gm/day Fluid: ml Per MD due to HD Nutritional Problem 2. Problem Problem Altered nutrition related lab values related to Etiology episodes of hypoglycemia, electrolyte imbalance aeb Signs/Symptoms: Na 134, glucose 41-137, Ca 8.2 1. Problem Problem Increased nutrient needs related to Etiology hypermetabolic state, impaired skin integrity aeb Signs/Symptoms: Pt on Hemodialysis and with multiple ulcerations Intervention/Recommendation Comments 1. Continue Renal diet as tolerated by patient. No need for DM restriction at this time due to hypoglycemia. 2. Consider fluid restriction due to HD, hyponatremia and edema. 3. Consider adding Prosource 1 packet with each meal for an additional 45gm protein. Expected Outcomes/Goals Expected Outcomes/Goals Oral intake >75% of meals, weight stable or trend toward ideal body weight, nutrition related labs WNL
[2018-08-01] MEDS: Atorvastatin Calcium 10 MG TAB PO SCH ×2 (21:12→21:22)
[2018-08-02] MEDS: Albuterol/Ipratropium Neb 3 ML AERS HHN SCH ×4 (01:05→19:22)
[2018-08-02] MEDS: Hydrocodone/APAP 5mg/325mg Tab PO PRN (05:50)
[2018-08-02] MEDS: Levothyroxine 0.025 Mg Tab PO SCH (06:45)
[2018-08-02] MEDS: INSULIN ASPART SLIDING SCALE 100 UNITS/ML UNIT SUBQ SCH ×4 (06:50→21:00)
[2018-08-02 06:58] LABS: MEAN CELL VOLUME 87.2 fl (81-100); MEAN CORPUSCULAR HEMOGLOBIN 29.4 pg (27.0-31.0); MEAN CORPUSCULAR HGB CONC 33.7 pg (28.0-36.0); MEAN PLATELET VOLUME 7.6 fl; PLATELET COUNT 152 Th/cmm (150-400); RED BLOOD COUNT 2.29 Mil/cmm (3.80-5.10); RED CELL DISTRIBUTION WIDTH 16.8 % (11.5-20.0); WHITE BLOOD COUNT 6.3 Th/cmm (4.8-10.8)
[2018-08-02 07:23] LABS: ANION GAP 9.9 (7.0-16.0); CARBON DIOXIDE 26.8 mEq/L (21.0-31.0); CREATININE - SERUM 3.4 mg/dL (0.6-1.2); GFR AFRICAN-AMERICAN 18.4 ml/min (>90); GFR NON AFRICAN-AMERICAN 15.2 ml/min; POTASSIUM SERUM 3.7 mEq/L (3.5-5.1)
[2018-08-02 07:41] LABS: HEMATOCRIT 19.9 % (41.0-60); HEMOGLOBIN 6.7 gm/dL (12-16)
[2018-08-02 08:00] LABS: BAND NEUTROPHILE 4 % (0-10); BASOPHIL 0 % (0-3); EOSINOPHIL 0 % (0-5); LYMPHOCYTE 33 % (20-50); MONOCYTE 10 % (2-10); NEUTROPHILS 53 % (40-80)
[2018-08-02 08:01] LABS: HYPOCHROMIA 2+; PLATELET ESTIMATE ADEQUATE (NORMAL)
[2018-08-02] MEDS: Lactobacillus Rhamnosus GG 15 Billion CFU CAP.SPRINK PO SCH (09:00)
[2018-08-02] MEDS: Venelex 60gm Tube TP SCH (09:00)
[2018-08-02] MEDS: Vitamin B Complex w/Vitamin C Tab PO SCH (09:00)
[2018-08-02] MEDS: Docusate Sodium 100 mg/10 mL UD PO SCH ×2 (09:00→16:57)
--- NOTE | 2018-08-02 09:49 | General Progress Note ---
Subjective - Review of Systems Service Date: 08/02/18 Events since last encounter: Hb 6.7, source of bleeding - chronic no colostomy bloody output to have 2 units PRBC, 2 doctors to sign medical necessity Objective - Results Result Diagrams: 08/02/18 06:01 08/02/18 06:01 Recent Labs: Laboratory Last Values WBC 6.3 Th/cmm (4.8-10.8) 08/02/18 06:01 RBC 2.29 Mil/cmm (3.80-5.10) L 08/02/18 06:01 Hgb 6.7 gm/dL (12-16) L* 08/02/18 06:01 Hct 19.9 % (41.0-60) L* 08/02/18 06:01 MCV 87.2 fl (81-100) 08/02/18 06:01 MCH 29.4 pg (27.0-31.0) 08/02/18 06:01 MCHC Differential 33.7 pg (28.0-36.0) 08/02/18 06:01 RDW 16.8 % (11.5-20.0) 08/02/18 06:01 Plt Count 152 Th/cmm (150-400) 08/02/18 06:01 MPV 7.6 fl 08/02/18 06:01 Add Manual Diff YES 08/02/18 06:01 Neutrophils % 49.8 % (40.0-80.0) 08/01/18 06:11 Band Neutrophils % 4 % (0-10) 08/02/18 06:01 Lymphocytes % 36.4 % (20.0-50.0) 08/01/18 06:11 Monocytes % 13.4 % (2.0-10.0) H 08/01/18 06:11 Eosinophils % 0.4 % (0.0-5.0) 08/01/18 06:11 Basophils % 0.0 % (0.0-2.0) 08/01/18 06:11 Neutrophils (Manual) 53 % (40-80) 08/02/18 06:01 Lymphocytes 33 % (20-50) 08/02/18 06:01 Monocytes 10 % (2-10) 08/02/18 06:01 Eosinophils 0 % (0-5) 08/02/18 06:01 Basophils 0 % (0-3) 08/02/18 06:01 Hypochromia 2+ 08/02/18 06:01 Platelet Estimate ADEQUATE (NORMAL) 08/02/18 06:01 PT 17.0 SECONDS (9.5-11.5) H 07/28/18 04:20 INR 1.67 (0.5-1.4) H 07/28/18 04:20 PTT (Actin FS) 43.0 SECONDS (26.0-38.0) H 07/20/18 08:08 Specimen Source Arterial 07/23/18 17:00 Sample Site LB 07/23/18 17:00 pH 7.44 (7.35-7.45) 07/23/18 17:00 pCO2 44.0 mmHg (35.0-45.0) 07/23/18 17:00 pO2 86.0 mmHg (80.0-100.0) 07/23/18 17:00 HCO3 28.9 mEq/L (20.0-26.0) H 07/23/18 17:00 Base Excess 5.1 mEq/L (-3.0-3.0) H 07/23/18 17:00 O2 Saturation 97.0 % (92.0-100.0) 07/23/18 17:00 [place] Test NA 07/23/18 17:00 Vent Rate NA 07/23/18 17:00 Inspired O2 40 07/23/18 17:00 Tidal Volume NA 07/23/18 17:00 PEEP NA 07/23/18 17:00 Pressure (ins/psv/peep) NA 07/23/18 17:00 Critical Value E.QUINTEROS 07/23/18 17:00 Sodium 136 mEq/L (136-145) 08/02/18 06:01 Potassium 3.7 mEq/L (3.5-5.1) 08/02/18 06:01 Chloride 103 mEq/L (98-107) 08/02/18 06:01 Carbon Dioxide 26.8 mEq/L (21.0-31.0) 08/02/18 06:01 Anion Gap 9.9 (7.0-16.0) 08/02/18 06:01 BUN 16 mg/dL (7-25) 08/02/18 06:01 Creatinine 3.4 mg/dL (0.6-1.2) H 08/02/18 06:01 Est GFR ( Amer) 18.4 ml/min (>90) 08/02/18 06:01 Est GFR (Non-Af Amer) 15.2 ml/min 08/02/18 06:01 BUN/Creatinine Ratio 4.7 08/02/18 06:01 Glucose 121 mg/dL (70-105) H 08/02/18 06:01 POC Glucose 113 MG/DL (70 - 105) H 08/02/18 06:47 Whole Bld Lactic Acid 1.29 mmol/L (0.60-1.99) 07/12/18 20:50 Calcium 9.0 mg/dL (8.6-10.3) 08/02/18 06:01 Magnesium 1.6 mg/dL (1.9-2.7) L 07/21/18 05:00 Total Bilirubin 0.4 mg/dL (0.3-1.0) 08/01/18 06:11 AST 19 U/L (13-39) 08/01/18 06:11 ALT 9 U/L (7-52) 08/01/18 06:11 Alkaline Phosphatase 120 U/L (34-104) H 08/01/18 06:11 Creatine Kinase 20 U/L (30-223) L 07/12/18 20:50 Troponin I 0.49 ng/mL (0.01-0.05) H* 07/13/18 15:20 B-Natriuretic Peptide 515.0 pg/mL (5.0-100.0) H 07/13/18 04:00 Total Protein 4.5 gm/dL (6.0-8.3) L 08/01/18 06:11 Albumin 1.6 gm/dL (3.7-5.3) L 08/01/18 06:11 Globulin 2.9 gm/dL 08/01/18 06:11 Albumin/Globulin Ratio 0.6 (1.0-1.8) L 08/01/18 06:11 Triglycerides 53 mg/dL (<150) 07/13/18 04:00 Cholesterol 41 mg/dL (<200) 07/13/18 04:00 LDL Cholesterol Direct 11 mg/dL (75-193) L 07/13/18 04:00 HDL Cholesterol 24 mg/dL (23-92) 07/13/18 04:00 TSH 1.21 uIU/ml (0.34-5.60) 07/13/18 04:00 Urine Source [place] 07/12/18 20:50 Urine Color YELLOW 07/12/18 20:50 Urine Clarity CLOUDY (CLEAR) H 07/12/18 20:50 Urine pH 8.5 (4.6 - 8.0) 07/12/18 20:50 Ur Specific [place] 1.015 (1.005-1.030) 07/12/18 20:50 Urine Protein 100 mg/dL (NEGATIVE) H 07/12/18 20:50 Urine Glucose (UA) NEGATIVE mg/dL (NEGATIVE) 07/12/18 20:50 Urine Ketones NEGATIVE mg/dL (NEGATIVE) 07/12/18 20:50 Urine Blood TRACE (NEGATIVE) 07/12/18 20:50 Urine Nitrate NEGATIVE (NEGATIVE) 07/12/18 20:50 Urine Bilirubin NEGATIVE (NEGATIVE) 07/12/18 20:50 Urine Urobilinogen 0.2 E.U./dL (0.2 - 1.0) 07/12/18 20:50 Ur Leukocyte Esterase LARGE (NEGATIVE) H 07/12/18 20:50 Urine RBC 2-5 /hpf (0-5) 07/12/18 20:50 Urine WBC >100 /hpf (0-5) H 07/12/18 20:50 Ur Epithelial Cells MODERATE /lpf (FEW) 07/12/18 20:50 Urine Bacteria MANY /hpf (NONE SEEN) H 07/12/18 20:50 Amikacin Peak 35.4 ug/mL (20.0-30.0) H 07/25/18 23:55 Amikacin Trough 14.1 ug/mL (1.0-8.0) H 07/25/18 20:30 Random Amikacin 14.8 ug/ml (1.0-30.0) 07/25/18 17:00 Random Vancomycin 25.5 ug/mL (5.0-40.0) 07/24/18 05:50 Crossmatch See Detail 07/28/18 07:30 - Physical Exam Vitals and I&O: Vital Signs Temp 97.3 F 08/02/18 08:01 Pulse 96 08/02/18 08:01 Resp 16 09/23/18 08:02 BP 130/84 08/02/18 08:01 Pulse Ox 98 08/02/18 08:01 Intake & Output 08/01/18 08/02/18 08/02/18 18:59 06:59 18:59 Intake Total 150 610 Output Total 200 Balance 150 410 Weight (lbs) 105.687 kg 105.687 kg Intake: Oral 150 510 Albumin 100 Output: Drainage 200 Sacrum 200 Other: # Voids 1 0 # Bowel Movements 0 Weight Source Bedscale Bedscale Active Medications: Current Medications Acetaminophen (Tylenol) 650 mg PO Q6H PRN PRN Reason: Mild Pain or Fever >101 Stop: 09/11/18 15:14 Acetaminophen/Hydrocodone Bitart ([place] 5mg/325mg) 1 tab PO Q4H PRN PRN Reason: Pain (Moderate) Stop: 09/27/18 14:34 Last Admin: 08/02/18 05:50 Dose: 1 tab Albuterol/Ipratropium (Duoneb Neb) 3 ml HHN Q4HRT PRN PRN Reason: Shortness of Breath or Wheeze Stop: 09/11/18 15:14 Albuterol/Ipratropium (Duoneb Neb) 3 ml HHN Q6HRT [facility] Stop: 09/21/18 18:59 Last Admin: 08/02/18 07:13 Dose: 3 ml Ascorbic Acid (Vitamin C) 500 mg PO DAILY [facility] Stop: 09/12/18 08:59 Last Admin: 08/01/18 08:38 Dose: 500 mg Atorvastatin Calcium (Lipitor) 20 mg PO HS [facility] Stop: 09/11/18 20:59 Last Admin: 08/01/18 21:22 Dose: Not Given [place] Oil/[place] Balsam/Trypsin (Venelex) 1 appl TP DAILY [facility] Stop: 09/13/18 08:59 Last Admin: 08/01/18 11:41 Dose: Not Given Dextrose (Glutose 40%) 18.75 gm PO PRN PRN PRN Reason: Blood Glucose less than 70 Stop: 09/11/18 04:10 Docusate Sodium (Colace) 100 mg PO BID [facility] Stop: 09/11/18 16:59 Last Admin: 08/01/18 17:30 Dose: 100 mg Epoetin Evelio (Epogen) 10,000 units SUBQ MoWeFr [facility] Stop: 09/29/18 12:44 Last Admin: 07/31/18 13:46 Dose: 10,000 units Famotidine (Pepcid) 20 mg PO DAILY [facility] Stop: 09/12/18 08:59 Last Admin: 08/01/18 08:38 Dose: 20 mg Folic Acid (Folate) 1 mg PO DAILY [facility] Stop: 09/12/18 08:59 Last Admin: 08/01/18 08:38 Dose: 1 mg Glucagon (Glucagen) 1 mg IM PRN PRN PRN Reason: Blood Glucose less than 70 Stop: 09/11/18 04:10 Heparin Sodium (Porcine) (Heparin) 5,000 units SUBQ Q12HR [facility] Stop: 09/26/18 20:59 Last Admin: 08/01/18 21:12 Dose: 5,000 units Insulin Aspart (Novolog Insulin Sliding Scale) 0 units SUBQ ACHS [facility]; Protocol Stop: 09/28/18 11:29 Last Admin: 08/02/18 06:50 Dose: Not Given Lactobacillus Rhamnosus (Culturelle 15b) 1 each PO DAILY [facility] Stop: 09/13/18 13:59 Last Admin: 08/01/18 08:37 Dose: 1 each Levothyroxine Sodium (Synthroid) 0.025 mg PO QDAC [facility] Stop: 09/12/18 07:29 Last Admin: 08/02/18 06:45 Dose: 0.025 mg Miscellaneous (Probiotic Screen) 1 ea MC PRN PRN PRN Reason: PROTOCOL Stop: 09/13/18 11:44 Miscellaneous (Clinical Monitoring) 1 ea MC DAILY PRN PRN Reason: RENAL DOSING Stop: 09/27/18 08:38 Oxcarbazepine (Trileptal) 600 mg PO BID [facility] Stop: 09/11/18 16:59 Last Admin: 08/01/18 17:30 Dose: 600 mg Risperidone (Risperdal) 2 mg PO HS [facility] Stop: 09/11/18 20:59 Last Admin: 08/01/18 21:12 Dose: 2 mg Senna (Senna) 17.2 mg PO BID [facility] Stop: 09/11/18 16:59 Last Admin: 08/01/18 17:31 Dose: 17.2 mg Sevelamer Carbonate (Renvela) 800 mg PO TIDWM [facility] Stop: 09/11/18 16:59 Last Admin: 08/01/18 17:32 Dose: Not Given Vitamin B Complex/Vit C/Folic Acid (Vitamin B Complex W/Vitamin C) 1 tab PO DAILY [facility] Stop: 09/12/18 08:59 Last Admin: 08/01/18 08:37 Dose: 1 tab Zinc Sulfate (Zinc Sulfate) 220 mg PO DAILY [facility] Stop: 09/12/18 08:59 Last Admin: 08/01/18 08:37 Dose: 220 mg General: Alert, Mild distress HEENT: Atraumatic, EOMI Neck: Supple, +2 carotid pulse wo bruit Cardiovascular: Regular rate, Normal S1, Normal S2 Lungs: Other (scattered rhonchi) Abdomen: Bowel sounds, Soft Extremities: Edema ((+) 2-3 edema), Other ((+) 2 bipedal edema) Neurological: Sensation intact Skin: no Rash Psych/Mental Status: Mood NL - Procedures Procedures: Procedures Procedure Code Date BYPASS DESCENDING COLON TO CUTANEOUS, OPEN APPROACH [id number] 07/12/18 EXCISION OF L LOW LEG SUBCU/FASCIA, OPEN APPROACH [id number] 07/12/18 EXCISION OF SACRUM, OPEN APPROACH [id number] 07/12/18 EXCISION OF SIGMOID COLON, OPEN APPROACH [id number] 07/12/18 RESPIRATORY VENTILATION, LESS THAN 24 CONSECUTIVE HOURS [id number] 07/12/18 Assessment/Plan - Problem List Patient Problems: All Active Problems Anasarca (Acute) R60.1 Anemia (Acute) D64.9 CAD (coronary artery disease) (Acute) I25.10 CHF (congestive heart failure) (Acute) I50.9 CKD (chronic kidney disease) (Acute) N18.9 HTN (hypertension) (Acute) I10 UTI (urinary tract infection) (Acute) sacral stage 4 wound (Acute) Nutritional Asmnt/Malnutr-PDOC - Dietary Evaluation Malnutrition Findings (Please click <Entered> for more info): Nutritional Asmnt/Malnutrition Start: 07/13/18 13: 54 Text: Status: Complete Freq: Protocol: Document 07/13/18 13:56 MMERIN (Rec: 07/13/18 14:10 LADAIR NASH- FN) Nutritional Asmnt/Malnutrition Patient General Information Nutritional Screening Consult Diagnosis ESRD, anasarca Pertinent Medical Hx/Surgical Hx Seizure, hep C, diabetes, CAD, HTN, CVA, quadreplegia, Parkinsons, ESRD Subjective Information Consult received for "Diabetic ". Per nursing notes, patient receives hemodialysis MWF and patient is non-verbal. Patient with 2+ pitting edema. Current Diet Order/ Nutrition Support Renal diet Patient / S.O Not Indicated Pertinent Medications D50W, D5-0.45NS @50 ml/hr, Glucagon, Novolog Pertinent Labs (07/13) Na 134, BUN 48, Cr 2.9, glucose 41-137, Ca 8.2, BNP 515, albumin 2 Nutritional Hx/Data Height 1.73 m Height (Calculated Centimeters) 172.7 Current Weight (lbs) 113.852 kg Weight (Calculated Kilograms) 113.9 Weight (Calculated Grams) 758889.7 [place] Body Weight 140 % [place] Body Weight 179 Body Mass Index (BMI) 38.1 Recent Weight Change No Weight Status Morbidly Obese GI Symptoms GI Symptoms None Last BM 07/13 x 1 Difficult in: Chewing Food Allergies No Cultural/Ethnic/Temple Belief none indicated Usual diet at home unknown Skin Integrity/Comment: Arian 10, ulceration on sacrum, left lower leg, abrasion on L heel, scar on right leg. Current %PO Good (75-100%) Estimated Nutritional Goals BEE in Kcals: Adj wt of IBW Calories/Kcals/Kg 27-32 kcal/kg (using 76.2kg ADj wt) Kcals Calculated ~3739-2454 kcal/day Protein g/k.2-1.5 gm/kg using Adj wt Protein Calculated ~90-115 gm/day Fluid: ml Per MD due to HD Nutritional Problem 2. Problem Problem Altered nutrition related lab values related to Etiology episodes of hypoglycemia, electrolyte imbalance aeb Signs/Symptoms: Na 134, glucose 41-137, Ca 8.2 1. Problem Problem Increased nutrient needs related to Etiology hypermetabolic state, impaired skin integrity aeb Signs/Symptoms: Pt on Hemodialysis and with multiple ulcerations Intervention/Recommendation Comments 1. Continue Renal diet as tolerated by patient. No need for DM restriction at this time due to hypoglycemia. 2. Consider fluid restriction due to HD, hyponatremia and edema. 3. Consider adding Prosource 1 packet with each meal for an additional 45gm protein. Expected Outcomes/Goals Expected Outcomes/Goals Oral intake >75% of meals, weight stable or trend toward ideal body weight, nutrition related labs WNL
--- NOTE | 2018-08-02 13:24 | Internal Medicine Prog Note ---
Internal Medicine Subjective - Subjective Service Date: 08/02/18 Patient seen and examined:: with staff Patient is:: awake Per staff patient has:: tolerating meds Internal Medicine Objective - Results Result Diagrams: 08/02/18 06:01 08/02/18 06:01 Recent Labs: Laboratory Last Values WBC 6.3 Th/cmm (4.8-10.8) 08/02/18 06:01 RBC 2.29 Mil/cmm (3.80-5.10) L 08/02/18 06:01 Hgb 6.7 gm/dL (12-16) L* 08/02/18 06:01 Hct 19.9 % (41.0-60) L* 08/02/18 06:01 MCV 87.2 fl (81-100) 08/02/18 06:01 MCH 29.4 pg (27.0-31.0) 08/02/18 06:01 MCHC Differential 33.7 pg (28.0-36.0) 08/02/18 06:01 RDW 16.8 % (11.5-20.0) 08/02/18 06:01 Plt Count 152 Th/cmm (150-400) 08/02/18 06:01 MPV 7.6 fl 08/02/18 06:01 Add Manual Diff YES 08/02/18 06:01 Neutrophils % 49.8 % (40.0-80.0) 08/01/18 06:11 Band Neutrophils % 4 % (0-10) 08/02/18 06:01 Lymphocytes % 36.4 % (20.0-50.0) 08/01/18 06:11 Monocytes % 13.4 % (2.0-10.0) H 08/01/18 06:11 Eosinophils % 0.4 % (0.0-5.0) 08/01/18 06:11 Basophils % 0.0 % (0.0-2.0) 08/01/18 06:11 Neutrophils (Manual) 53 % (40-80) 08/02/18 06:01 Lymphocytes 33 % (20-50) 08/02/18 06:01 Monocytes 10 % (2-10) 08/02/18 06:01 Eosinophils 0 % (0-5) 08/02/18 06:01 Basophils 0 % (0-3) 09/23/18 06:01 Hypochromia 2+ 08/02/18 06:01 Platelet Estimate ADEQUATE (NORMAL) 08/02/18 06:01 PT 17.0 SECONDS (9.5-11.5) H 07/28/18 04:20 INR 1.67 (0.5-1.4) H 07/28/18 04:20 PTT (Actin FS) 43.0 SECONDS (26.0-38.0) H 07/20/18 08:08 Specimen Source Arterial 07/23/18 17:00 Sample Site LB 07/23/18 17:00 pH 7.44 (7.35-7.45) 07/23/18 17:00 pCO2 44.0 mmHg (35.0-45.0) 07/23/18 17:00 pO2 86.0 mmHg (80.0-100.0) 07/23/18 17:00 HCO3 28.9 mEq/L (20.0-26.0) H 07/23/18 17:00 Base Excess 5.1 mEq/L (-3.0-3.0) H 07/23/18 17:00 O2 Saturation 97.0 % (92.0-100.0) 07/23/18 17:00 [place] Test NA 07/23/18 17:00 Vent Rate NA 07/23/18 17:00 Inspired O2 40 07/23/18 17:00 Tidal Volume NA 07/23/18 17:00 PEEP NA 07/23/18 17:00 Pressure (ins/psv/peep) NA 07/23/18 17:00 Critical Value E.QUINTEROS 07/23/18 17:00 Sodium 136 mEq/L (136-145) 08/02/18 06:01 Potassium 3.7 mEq/L (3.5-5.1) 08/02/18 06:01 Chloride 103 mEq/L (98-107) 08/02/18 06:01 Carbon Dioxide 26.8 mEq/L (21.0-31.0) 08/02/18 06:01 Anion Gap 9.9 (7.0-16.0) 08/02/18 06:01 BUN 16 mg/dL (7-25) 08/02/18 06:01 Creatinine 3.4 mg/dL (0.6-1.2) H 08/02/18 06:01 Est GFR ( Amer) 18.4 ml/min (>90) 08/02/18 06:01 Est GFR (Non-Af Amer) 15.2 ml/min 08/02/18 06:01 BUN/Creatinine Ratio 4.7 08/02/18 06:01 Glucose 121 mg/dL (70-105) H 08/02/18 06:01 POC Glucose 130 MG/DL (70 - 105) H 08/02/18 12:41 Whole Bld Lactic Acid 1.29 mmol/L (0.60-1.99) 07/12/18 20:50 Calcium 9.0 mg/dL (8.6-10.3) 08/02/18 06:01 Magnesium 1.6 mg/dL (1.9-2.7) L 07/21/18 05:00 Total Bilirubin 0.4 mg/dL (0.3-1.0) 08/01/18 06:11 AST 19 U/L (13-39) 08/01/18 06:11 ALT 9 U/L (7-52) 08/01/18 06:11 Alkaline Phosphatase 120 U/L (34-104) H 08/01/18 06:11 Creatine Kinase 20 U/L (30-223) L 07/12/18 20:50 Troponin I 0.49 ng/mL (0.01-0.05) H* 07/13/18 15:20 B-Natriuretic Peptide 515.0 pg/mL (5.0-100.0) H 07/13/18 04:00 Total Protein 4.5 gm/dL (6.0-8.3) L 08/01/18 06:11 Albumin 1.6 gm/dL (3.7-5.3) L 08/01/18 06:11 Globulin 2.9 gm/dL 08/01/18 06:11 Albumin/Globulin Ratio 0.6 (1.0-1.8) L 08/01/18 06:11 Triglycerides 53 mg/dL (<150) 07/13/18 04:00 Cholesterol 41 mg/dL (<200) 07/13/18 04:00 LDL Cholesterol Direct 11 mg/dL (75-193) L 07/13/18 04:00 HDL Cholesterol 24 mg/dL (23-92) 07/13/18 04:00 TSH 1.21 uIU/ml (0.34-5.60) 07/13/18 04:00 Urine Source [place] 07/12/18 20:50 Urine Color YELLOW 07/12/18 20:50 Urine Clarity CLOUDY (CLEAR) H 07/12/18 20:50 Urine pH 8.5 (4.6 - 8.0) 07/12/18 20:50 Ur Specific [place] 1.015 (1.005-1.030) 07/12/18 20:50 Urine Protein 100 mg/dL (NEGATIVE) H 07/12/18 20:50 Urine Glucose (UA) NEGATIVE mg/dL (NEGATIVE) 07/12/18 20:50 Urine Ketones NEGATIVE mg/dL (NEGATIVE) 07/12/18 20:50 Urine Blood TRACE (NEGATIVE) 07/12/18 20:50 Urine Nitrate NEGATIVE (NEGATIVE) 07/12/18 20:50 Urine Bilirubin NEGATIVE (NEGATIVE) 07/12/18 20:50 Urine Urobilinogen 0.2 E.U./dL (0.2 - 1.0) 07/12/18 20:50 Ur Leukocyte Esterase LARGE (NEGATIVE) H 07/12/18 20:50 Urine RBC 2-5 /hpf (0-5) 07/12/18 20:50 Urine WBC >100 /hpf (0-5) H 07/12/18 20:50 Ur Epithelial Cells MODERATE /lpf (FEW) 07/12/18 20:50 Urine Bacteria MANY /hpf (NONE SEEN) H 07/12/18 20:50 Amikacin Peak 35.4 ug/mL (20.0-30.0) H 07/25/18 23:55 Amikacin Trough 14.1 ug/mL (1.0-8.0) H 07/25/18 20:30 Random Amikacin 14.8 ug/ml (1.0-30.0) 07/25/18 17:00 Random Vancomycin 25.5 ug/mL (5.0-40.0) 07/24/18 05:50 Blood Type O POSITIVE 08/02/18 09:20 Antibody Screen NEGATIVE 08/02/18 09:20 Crossmatch See Detail 08/02/18 09:20 - Physical Exam Vitals and I&O: Vital Signs Temp 97.4 F 08/02/18 12:09 Pulse 100 08/02/18 12:16 Resp 16 08/02/18 12:16 BP 110/92 08/02/18 12:09 Pulse Ox 95 08/02/18 12:16 Intake & Output 08/01/18 08/02/18 08/02/18 18:59 06:59 18:59 Intake Total 150 610 Output Total 200 Balance 150 410 Weight (lbs) 233 lb 233 lb 233 lb Intake: Oral 150 510 Albumin 100 Output: Drainage 200 Sacrum 200 Other: # Voids 1 0 # Bowel Movements 0 Weight Source Bedscale Bedscale Bedscale Active Medications: Current Medications Acetaminophen (Tylenol) 650 mg PO Q6H PRN PRN Reason: Mild Pain or Fever >101 Stop: 09/11/18 15:14 Acetaminophen/Hydrocodone Bitart ([place] 5mg/325mg) 1 tab PO Q4H PRN PRN Reason: Pain (Moderate) Stop: 09/27/18 14:34 Last Admin: 08/02/18 05:50 Dose: 1 tab Albuterol/Ipratropium (Duoneb Neb) 3 ml HHN Q4HRT PRN PRN Reason: Shortness of Breath or Wheeze Stop: 09/11/18 15:14 Albuterol/Ipratropium (Duoneb Neb) 3 ml HHN Q6HRT [facility] Stop: 09/21/18 18:59 Last Admin: 08/02/18 12:14 Dose: 3 ml Ascorbic Acid (Vitamin C) 500 mg PO DAILY [facility] Stop: 09/12/18 08:59 Last Admin: 08/01/18 08:38 Dose: 500 mg Atorvastatin Calcium (Lipitor) 20 mg PO HS [facility] Stop: 09/11/18 20:59 Last Admin: 08/01/18 21:22 Dose: Not Given [place] Oil/[place] Balsam/Trypsin (Venelex) 1 appl TP DAILY [facility] Stop: 09/13/18 08:59 Last Admin: 08/01/18 11:41 Dose: Not Given Dextrose (Glutose 40%) 18.75 gm PO PRN PRN PRN Reason: Blood Glucose less than 70 Stop: 09/11/18 04:10 Docusate Sodium (Colace) 100 mg PO BID [facility] Stop: 09/11/18 16:59 Last Admin: 08/01/18 17:30 Dose: 100 mg Epoetin Evelio (Epogen) 10,000 units SUBQ MoWeFr [facility] Stop: 09/29/18 12:44 Last Admin: 07/31/18 13:46 Dose: 10,000 units Famotidine (Pepcid) 20 mg PO DAILY [facility] Stop: 09/12/18 08:59 Last Admin: 08/01/18 08:38 Dose: 20 mg Folic Acid (Folate) 1 mg PO DAILY [facility] Stop: 09/12/18 08:59 Last Admin: 08/01/18 08:38 Dose: 1 mg Glucagon (Glucagen) 1 mg IM PRN PRN PRN Reason: Blood Glucose less than 70 Stop: 09/11/18 04:10 Heparin Sodium (Porcine) (Heparin) 5,000 units SUBQ Q12HR [facility] Stop: 09/26/18 20:59 Last Admin: 08/01/18 21:12 Dose: 5,000 units Insulin Aspart (Novolog Insulin Sliding Scale) 0 units SUBQ ACHS [facility]; Protocol Stop: 09/28/18 11:29 Last Admin: 08/02/18 06:50 Dose: Not Given Lactobacillus Rhamnosus (Culturelle 15b) 1 each PO DAILY [facility] Stop: 09/13/18 13:59 Last Admin: 08/01/18 08:37 Dose: 1 each Levothyroxine Sodium (Synthroid) 0.025 mg PO QDAC [facility] Stop: 09/12/18 07:29 Last Admin: 08/02/18 06:45 Dose: 0.025 mg Miscellaneous (Probiotic Screen) 1 ea PRN PRN PRN Reason: PROTOCOL Stop: 09/13/18 11:44 Miscellaneous (Clinical Monitoring) 1 ea MC DAILY PRN PRN Reason: RENAL DOSING Stop: 09/27/18 08:38 Oxcarbazepine (Trileptal) 600 mg PO BID [facility] Stop: 09/11/18 16:59 Last Admin: 08/01/18 17:30 Dose: 600 mg Risperidone (Risperdal) 2 mg PO HS [facility] Stop: 09/11/18 20:59 Last Admin: 08/01/18 21:12 Dose: 2 mg Senna (Senna) 17.2 mg PO BID [facility] Stop: 09/11/18 16:59 Last Admin: 08/01/18 17:31 Dose: 17.2 mg Sevelamer Carbonate (Renvela) 800 mg PO TIDWM [facility] Stop: 09/11/18 16:59 Last Admin: 08/01/18 17:32 Dose: Not Given Vitamin B Complex/Vit C/Folic Acid (Vitamin B Complex W/Vitamin C) 1 tab PO DAILY [facility] Stop: 09/12/18 08:59 Last Admin: 08/01/18 08:37 Dose: 1 tab Zinc Sulfate (Zinc Sulfate) 220 mg PO DAILY [facility] Stop: 09/12/18 08:59 Last Admin: 08/01/18 08:37 Dose: 220 mg General: weak, alert HEENT: NC/AT, PERRLA Neck: Supple Lungs: CTAB Abdomen: soft, non-tender, non-distended Extremities: other (sacrum ulcer wound vac) Neurological: alert - Procedures Procedures: Procedures Procedure Code Date BYPASS DESCENDING COLON TO CUTANEOUS, OPEN APPROACH [id number] 07/12/18 EXCISION OF L LOW LEG SUBCU/FASCIA, OPEN APPROACH [id number] 07/12/18 EXCISION OF SACRUM, OPEN APPROACH [id number] 07/12/18 EXCISION OF SIGMOID COLON, OPEN APPROACH [id number] 07/12/18 RESPIRATORY VENTILATION, LESS THAN 24 CONSECUTIVE HOURS [id number] 07/12/18 Internal Medicine Assmt/Plan - Assessment Assessment: 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 acute uti dm 1 anemia cad chf anasarca ckd stage 5 on hd - Plan Plan: transfuse with prbc dc planning to snf with wound vac hd as per renal continue current plan of care Nutritional Asmnt/Malnutr-PDOC - Dietary Evaluation Malnutrition Findings (Please click <Entered> for more info): Nutritional Asmnt/Malnutrition Start: 07/13/18 13: 54 Text: Status: Complete Freq: Protocol: Document 07/13/18 13:56 ALDAIR (Rec: 07/13/18 14:10 ALDAIR [place] [email or web address]) Nutritional Asmnt/Malnutrition Patient General Information Nutritional Screening Consult Diagnosis ESRD, anasarca Pertinent Medical Hx/Surgical Hx Seizure, hep C, diabetes, CAD, HTN, CVA, quadreplegia, Parkinsons, ESRD Subjective Information Consult received for "Diabetic ". Per nursing notes, patient receives hemodialysis MWF and patient is non-verbal. Patient with 2+ pitting edema. Current Diet Order/ Nutrition Support Renal diet Patient / S.O Not Indicated Pertinent Medications D50W, D5-0.45NS @50 ml/hr, Glucagon, Novolog Pertinent Labs (07/13) Na 134, BUN 48, Cr 2.9, glucose 41-137, Ca 8.2, BNP 515, albumin 2 Nutritional Hx/Data Height 5 ft 8 in Height (Calculated Centimeters) 172.7 Current Weight (lbs) 251 lb Weight (Calculated Kilograms) 113.9 Weight (Calculated Grams) 474802.7 [place] Body Weight 140 % [place] Body Weight 179 Body Mass Index (BMI) 38.1 Recent Weight Change No Weight Status Morbidly Obese GI Symptoms GI Symptoms None Last BM 07/13 x 1 Difficult in: Chewing Food Allergies No Cultural/Ethnic/[place] Belief none indicated Usual diet at home unknown Skin Integrity/Comment: Arian 10, ulceration on sacrum, left lower leg, abrasion on L heel, scar on right leg. Current %PO Good (75-100%) Estimated Nutritional Goals BEE in Kcals: Adj wt of IBW Calories/Kcals/Kg 27-32 kcal/kg (using 76.2kg ADj wt) Kcals Calculated ~2285-1219 kcal/day Protein g/k.2-1.5 gm/kg using Adj wt Protein Calculated ~90-115 gm/day Fluid: ml Per MD due to HD Nutritional Problem 2. Problem Problem Altered nutrition related lab values related to Etiology episodes of hypoglycemia, electrolyte imbalance aeb Signs/Symptoms: Na 134, glucose 41-137, Ca 8.2 1. Problem Problem Increased nutrient needs related to Etiology hypermetabolic state, impaired skin integrity aeb Signs/Symptoms: Pt on Hemodialysis and with multiple ulcerations Intervention/Recommendation Comments 1. Continue Renal diet as tolerated by patient. No need for DM restriction at this time due to hypoglycemia. 2. Consider fluid restriction due to HD, hyponatremia and edema. 3. Consider adding Prosource 1 packet with each meal for an additional 45gm protein. Expected Outcomes/Goals Expected Outcomes/Goals Oral intake >75% of meals, weight stable or trend toward ideal body weight, nutrition related labs WNL
--- NOTE | 2018-08-02 14:00 | General Progress Note ---
Subjective - Review of Systems Service Date: 08/02/18 Subjective: alert, comfortable, on puree diet Objective - Results Result Diagrams: 08/02/18 06:01 08/02/18 06:01 Recent Labs: Laboratory Last Values WBC 6.3 Th/cmm (4.8-10.8) 08/02/18 06:01 RBC 2.29 Mil/cmm (3.80-5.10) L 08/02/18 06:01 Hgb 6.7 gm/dL (12-16) L* 08/02/18 06:01 Hct 19.9 % (41.0-60) L* 08/02/18 06:01 MCV 87.2 fl (81-100) 08/02/18 06:01 MCH 29.4 pg (27.0-31.0) 08/02/18 06:01 MCHC Differential 33.7 pg (28.0-36.0) 08/02/18 06:01 RDW 16.8 % (11.5-20.0) 08/02/18 06:01 Plt Count 152 Th/cmm (150-400) 08/02/18 06:01 MPV 7.6 fl 08/02/18 06:01 Add Manual Diff YES 08/02/18 06:01 Neutrophils % 49.8 % (40.0-80.0) 08/01/18 06:11 Band Neutrophils % 4 % (0-10) 08/02/18 06:01 Lymphocytes % 36.4 % (20.0-50.0) 08/01/18 06:11 Monocytes % 13.4 % (2.0-10.0) H 08/01/18 06:11 Eosinophils % 0.4 % (0.0-5.0) 08/01/18 06:11 Basophils % 0.0 % (0.0-2.0) 08/01/18 06:11 Neutrophils (Manual) 53 % (40-80) 08/02/18 06:01 Lymphocytes 33 % (20-50) 08/02/18 06:01 Monocytes 10 % (2-10) 08/02/18 06:01 Eosinophils 0 % (0-5) 08/02/18 06:01 Basophils 0 % (0-3) 08/02/18 06:01 Hypochromia 2+ 08/02/18 06:01 Platelet Estimate ADEQUATE (NORMAL) 08/02/18 06:01 PT 17.0 SECONDS (9.5-11.5) H 07/28/18 04:20 INR 1.67 (0.5-1.4) H 07/28/18 04:20 PTT (Actin FS) 43.0 SECONDS (26.0-38.0) H 07/20/18 08:08 Specimen Source Arterial 07/23/18 17:00 Sample Site LB 07/23/18 17:00 pH 7.44 (7.35-7.45) 07/23/18 17:00 pCO2 44.0 mmHg (35.0-45.0) 07/23/18 17:00 pO2 86.0 mmHg (80.0-100.0) 07/23/18 17:00 HCO3 28.9 mEq/L (20.0-26.0) H 07/23/18 17:00 Base Excess 5.1 mEq/L (-3.0-3.0) H 07/23/18 17:00 O2 Saturation 97.0 % (92.0-100.0) 07/23/18 17:00 [place] Test NA 07/23/18 17:00 Vent Rate NA 07/23/18 17:00 Inspired O2 40 07/23/18 17:00 Tidal Volume NA 07/23/18 17:00 PEEP NA 07/23/18 17:00 Pressure (ins/psv/peep) NA 07/23/18 17:00 Critical Value E.QUINTEROS 07/23/18 17:00 Sodium 136 mEq/L (136-145) 08/02/18 06:01 Potassium 3.7 mEq/L (3.5-5.1) 08/02/18 06:01 Chloride 103 mEq/L (98-107) 08/02/18 06:01 Carbon Dioxide 26.8 mEq/L (21.0-31.0) 08/02/18 06:01 Anion Gap 9.9 (7.0-16.0) 08/02/18 06:01 BUN 16 mg/dL (7-25) 08/02/18 06:01 Creatinine 3.4 mg/dL (0.6-1.2) H 08/02/18 06:01 Est GFR ( Amer) 18.4 ml/min (>90) 08/02/18 06:01 Est GFR (Non-Af Amer) 15.2 ml/min 08/02/18 06:01 BUN/Creatinine Ratio 4.7 08/02/18 06:01 Glucose 121 mg/dL (70-105) H 08/02/18 06:01 POC Glucose 130 MG/DL (70 - 105) H 08/02/18 12:41 Whole Bld Lactic Acid 1.29 mmol/L (0.60-1.99) 07/12/18 20:50 Calcium 9.0 mg/dL (8.6-10.3) 08/02/18 06:01 Magnesium 1.6 mg/dL (1.9-2.7) L 07/21/18 05:00 Total Bilirubin 0.4 mg/dL (0.3-1.0) 08/01/18 06:11 AST 19 U/L (13-39) 08/01/18 06:11 ALT 9 U/L (7-52) 08/01/18 06:11 Alkaline Phosphatase 120 U/L (34-104) H 08/01/18 06:11 Creatine Kinase 20 U/L (30-223) L 07/12/18 20:50 Troponin I 0.49 ng/mL (0.01-0.05) H* 07/13/18 15:20 B-Natriuretic Peptide 515.0 pg/mL (5.0-100.0) H 07/13/18 04:00 Total Protein 4.5 gm/dL (6.0-8.3) L 08/01/18 06:11 Albumin 1.6 gm/dL (3.7-5.3) L 08/01/18 06:11 Globulin 2.9 gm/dL 08/01/18 06:11 Albumin/Globulin Ratio 0.6 (1.0-1.8) L 08/01/18 06:11 Triglycerides 53 mg/dL (<150) 07/13/18 04:00 Cholesterol 41 mg/dL (<200) 07/13/18 04:00 LDL Cholesterol Direct 11 mg/dL (75-193) L 07/13/18 04:00 HDL Cholesterol 24 mg/dL (23-92) 07/13/18 04:00 TSH 1.21 uIU/ml (0.34-5.60) 07/13/18 04:00 Urine Source [place] 07/12/18 20:50 Urine Color YELLOW 07/12/18 20:50 Urine Clarity CLOUDY (CLEAR) H 07/12/18 20:50 Urine pH 8.5 (4.6 - 8.0) 07/12/18 20:50 Ur Specific [place] 1.015 (1.005-1.030) 07/12/18 20:50 Urine Protein 100 mg/dL (NEGATIVE) H 07/12/18 20:50 Urine Glucose (UA) NEGATIVE mg/dL (NEGATIVE) 07/12/18 20:50 Urine Ketones NEGATIVE mg/dL (NEGATIVE) 07/12/18 20:50 Urine Blood TRACE (NEGATIVE) 07/12/18 20:50 Urine Nitrate NEGATIVE (NEGATIVE) 07/12/18 20:50 Urine Bilirubin NEGATIVE (NEGATIVE) 07/12/18 20:50 Urine Urobilinogen 0.2 E.U./dL (0.2 - 1.0) 07/12/18 20:50 Ur Leukocyte Esterase LARGE (NEGATIVE) H 07/12/18 20:50 Urine RBC 2-5 /hpf (0-5) 07/12/18 20:50 Urine WBC >100 /hpf (0-5) H 07/12/18 20:50 Ur Epithelial Cells MODERATE /lpf (FEW) 07/12/18 20:50 Urine Bacteria MANY /hpf (NONE SEEN) H 07/12/18 20:50 Amikacin Peak 35.4 ug/mL (20.0-30.0) H 07/25/18 23:55 Amikacin Trough 14.1 ug/mL (1.0-8.0) H 07/25/18 20:30 Random Amikacin 14.8 ug/ml (1.0-30.0) 07/25/18 17:00 Random Vancomycin 25.5 ug/mL (5.0-40.0) 07/24/18 05:50 Blood Type O POSITIVE 08/02/18 09:20 Antibody Screen NEGATIVE 08/02/18 09:20 Crossmatch See Detail 08/02/18 09:20 - Physical Exam Vitals and I&O: Vital Signs Temp 97.4 F 08/02/18 12:09 Pulse 100 08/02/18 12:16 Resp 16 08/02/18 12:16 BP 110/92 08/02/18 12:09 Pulse Ox 95 08/02/18 12:16 Intake & Output 08/01/18 08/02/18 08/02/18 18:59 06:59 18:59 Intake Total 150 610 Output Total 200 Balance 150 410 Weight (lbs) 105.687 kg 105.687 kg 105.687 kg Intake: Oral 150 510 Albumin 100 Output: Drainage 200 Sacrum 200 Other: # Voids 1 0 # Bowel Movements 0 Weight Source Bedscale Bedscale Bedscale Active Medications: Current Medications Acetaminophen (Tylenol) 650 mg PO Q6H PRN PRN Reason: Mild Pain or Fever >101 Stop: 09/11/18 15:14 Acetaminophen/Hydrocodone Bitart ([place] 5mg/325mg) 1 tab PO Q4H PRN PRN Reason: Pain (Moderate) Stop: 09/27/18 14:34 Last Admin: 08/02/18 05:50 Dose: 1 tab Albuterol/Ipratropium (Duoneb Neb) 3 ml HHN Q4HRT PRN PRN Reason: Shortness of Breath or Wheeze Stop: 09/11/18 15:14 Albuterol/Ipratropium (Duoneb Neb) 3 ml HHN Q6HRT ON LICENSE OF [facility] Stop: 09/21/18 18:59 Last Admin: 08/02/18 12:14 Dose: 3 ml Ascorbic Acid (Vitamin C) 500 mg PO DAILY ON LICENSE OF [facility] Stop: 09/12/18 08:59 Last Admin: 08/01/18 08:38 Dose: 500 mg Atorvastatin Calcium (Lipitor) 20 mg PO HS ON LICENSE OF [facility] Stop: 09/11/18 20:59 Last Admin: 08/01/18 21:22 Dose: Not Given [place] Oil/[place] Balsam/Trypsin (Venelex) 1 appl TP DAILY ON LICENSE OF [facility] Stop: 09/13/18 08:59 Last Admin: 08/01/18 11:41 Dose: Not Given Dextrose (Glutose 40%) 18.75 gm PO PRN PRN PRN Reason: Blood Glucose less than 70 Stop: 09/11/18 04:10 Docusate Sodium (Colace) 100 mg PO BID ON LICENSE OF [facility] Stop: 09/11/18 16:59 Last Admin: 08/01/18 17:30 Dose: 100 mg Epoetin Evelio (Epogen) 10,000 units SUBQ MoWeFr ON LICENSE OF [facility] Stop: 09/29/18 12:44 Last Admin: 07/31/18 13:46 Dose: 10,000 units Famotidine (Pepcid) 20 mg PO DAILY ON LICENSE OF [facility] Stop: 09/12/18 08:59 Last Admin: 08/01/18 08:38 Dose: 20 mg Folic Acid (Folate) 1 mg PO DAILY VIKTORIA Stop: 09/12/18 08:59 Last Admin: 08/01/18 08:38 Dose: 1 mg Glucagon (Glucagen) 1 mg IM PRN PRN PRN Reason: Blood Glucose less than 70 Stop: 09/11/18 04:10 Heparin Sodium (Porcine) (Heparin) 5,000 units SUBQ Q12HR ON LICENSE OF [facility] Stop: 09/26/18 20:59 Last Admin: 08/01/18 21:12 Dose: 5,000 units Insulin Aspart (Novolog Insulin Sliding Scale) 0 units SUBQ ACHS ON LICENSE OF [facility]; Protocol Stop: 09/28/18 11:29 Last Admin: 08/02/18 06:50 Dose: Not Given Lactobacillus Rhamnosus (Culturelle 15b) 1 each PO DAILY ON LICENSE OF [facility] Stop: 09/13/18 13:59 Last Admin: 08/01/18 08:37 Dose: 1 each Levothyroxine Sodium (Synthroid) 0.025 mg PO QDAC ON LICENSE OF [facility] Stop: 09/12/18 07:29 Last Admin: 08/02/18 06:45 Dose: 0.025 mg Miscellaneous (Probiotic Screen) 1 ea PRN PRN PRN Reason: PROTOCOL Stop: 09/13/18 11:44 Miscellaneous (Clinical Monitoring) 1 ea DAILY PRN PRN Reason: RENAL DOSING Stop: 09/27/18 08:38 Oxcarbazepine (Trileptal) 600 mg PO BID ON LICENSE OF [facility] Stop: 09/11/18 16:59 Last Admin: 08/01/18 17:30 Dose: 600 mg Risperidone (Risperdal) 2 mg PO HS ON LICENSE OF [facility] Stop: 09/11/18 20:59 Last Admin: 08/01/18 21:12 Dose: 2 mg Senna (Senna) 17.2 mg PO BID ON LICENSE OF [facility] Stop: 09/11/18 16:59 Last Admin: 08/01/18 17:31 Dose: 17.2 mg Sevelamer Carbonate (Renvela) 800 mg PO TIDWM ON LICENSE OF [facility] Stop: 09/11/18 16:59 Last Admin: 08/01/18 17:32 Dose: Not Given Vitamin B Complex/Vit C/Folic Acid (Vitamin B Complex W/Vitamin C) 1 tab PO DAILY VIKTORIA Stop: 09/12/18 08:59 Last Admin: 08/01/18 08:37 Dose: 1 tab Zinc Sulfate (Zinc Sulfate) 220 mg PO DAILY ON LICENSE OF [facility] Stop: 09/12/18 08:59 Last Admin: 08/01/18 08:37 Dose: 220 mg General: Alert, Mild distress HEENT: Atraumatic, EOMI Neck: Supple, +2 carotid pulse wo bruit Cardiovascular: Regular rate, Normal S1, Normal S2 Lungs: Other (scattered rhonchi) Abdomen: Bowel sounds, Soft Extremities: Edema ((+) 2-3 edema), Other ((+) 2 bipedal edema) Neurological: Sensation intact Skin: no Rash Psych/Mental Status: Mood NL - Procedures Procedures: Procedures Procedure Code Date BYPASS DESCENDING COLON TO CUTANEOUS, OPEN APPROACH [id number] 07/12/18 EXCISION OF L LOW LEG SUBCU/FASCIA, OPEN APPROACH [id number] 07/12/18 EXCISION OF SACRUM, OPEN APPROACH [id number] 07/12/18 EXCISION OF SIGMOID COLON, OPEN APPROACH [id number] 07/12/18 RESPIRATORY VENTILATION, LESS THAN 24 CONSECUTIVE HOURS [id number] 07/12/18 Assessment/Plan - Problem List Patient Problems: All Active Problems Anasarca (Acute) R60.1 Anemia (Acute) D64.9 CAD (coronary artery disease) (Acute) I25.10 CHF (congestive heart failure) (Acute) I50.9 CKD (chronic kidney disease) (Acute) N18.9 HTN (hypertension) (Acute) I10 UTI (urinary tract infection) (Acute) sacral stage 4 wound (Acute) - Assessment Assessment: ESRD on HD Hypothyroid Parkinson Ds. Fnc Quad Hep B,C GERD Left Calf ulcer Sacral Decub ulcer stage 4, w/ wound vacuum Cholelithiasis B/L HAP w/ effusions Peripheral edema Left SFV DVT S/P Diverting Colostomy - Plan Plan: Lab - Result Diagrams 07/14/18 05:00 07/14/18 05:00 Current Medications Acetaminophen (Tylenol) 650 mg PO Q6H PRN PRN Reason: Pain or Fever >101 Stop: 09/11/18 15:14 Acetaminophen/Hydrocodone Bitart ([place] 5mg/325mg) 1 tab PO Q6H PRN PRN Reason: Pain (Severe) Stop: 09/11/18 15:14 Albuterol/Ipratropium (Duoneb Neb) 3 ml HHN Q4HRT PRN PRN Reason: Shortness of Breath or Wheeze Stop: 09/11/18 15:14 Ascorbic Acid (Vitamin C) 500 mg PO DAILY ON LICENSE OF [facility] Stop: 09/12/18 08:59 Last Admin: 07/14/18 08:27 Dose: 500 mg Atorvastatin Calcium (Lipitor) 20 mg PO HS ON LICENSE OF [facility] Stop: 09/11/18 20:59 Last Admin: 07/13/18 21:05 Dose: 20 mg Dextrose (D50w) 50 ml IVP PRN PRN PRN Reason: Blood Glucose less than 70 Stop: 09/11/18 04:10 Dextrose (Glutose 40%) 18.75 gm PO PRN PRN PRN Reason: Blood Glucose less than 70 Stop: 09/11/18 04:10 Docusate Sodium (Colace) 100 mg PO BID ON LICENSE OF [facility] Stop: 09/11/18 16:59 Last Admin: 07/14/18 08:27 Dose: 100 mg Famotidine (Pepcid) 20 mg PO DAILY ON LICENSE OF [facility] Stop: 09/12/18 08:59 Last Admin: 07/14/18 08:27 Dose: 20 mg Folic Acid (Folate) 1 mg PO DAILY ON LICENSE OF [facility] Stop: 09/12/18 08:59 Last Admin: 07/14/18 08:27 Dose: 1 mg Glucagon (Glucagen) 1 mg IM PRN PRN PRN Reason: Blood Glucose less than 70 Stop: 09/11/18 04:10 Piperacillin Sod/Tazobactam (Sod 2.25 gm/ Sodium Chloride) 50 mls @ 100 mls/hr IV Q6H ON LICENSE OF [facility] Stop: 09/11/18 05:59 Last Admin: 07/14/18 06:05 Dose: Not Given Dextrose/Sodium Chloride (D5-0.45ns) 1,000 mls @ 50 mls/hr IV .Q20H ON LICENSE OF [facility] Stop: 09/11/18 02:29 Last Admin: 07/13/18 04:03 Dose: 50 mls/hr Insulin Aspart (Novolog Insulin Sliding Scale) 0 units SUBQ Q6HR VIKTORIA; Protocol Stop: 09/11/18 05:59 Last Admin: 07/14/18 06:05 Dose: Not Given Levothyroxine Sodium (Synthroid) 0.025 mg PO QDAC VIKTORIA Stop: 09/12/18 07:29 Last Admin: 07/14/18 06:35 Dose: 0.025 mg Miscellaneous (Vancomycin Iv Per Pharmacy) 1 ea PRN PRN PRN Reason: PROTOCOL Stop: 09/10/18 23:40 Oxcarbazepine (Trileptal) 600 mg PO BID [facility] Stop: 09/11/18 16:59 Last Admin: 07/14/18 08:27 Dose: 600 mg Risperidone (Risperdal) 2 mg PO HS VIK[place]IA Stop: 09/11/18 20:59 Last Admin: 07/13/18 21:05 Dose: 2 mg Senna (Senna) 17.2 mg PO BID [place] Stop: 09/11/18 16:59 Last Admin: 07/14/18 08:27 Dose: 17.2 mg Sevelamer Carbonate (Renvela) 800 mg PO TIDWM [place] Stop: 09/11/18 16:59 Last Admin: 07/14/18 08:27 Dose: 800 mg Temazepam (Restoril) 15 mg PO HS PRN; Protocol PRN Reason: Insomnia Stop: 09/11/18 15:14 Vitamin B Complex/Vit C/Folic Acid (Vitamin B Complex W/Vitamin C) 1 tab PO DAILY VIKTORIA Stop: 09/12/18 08:59 Last Admin: 07/14/18 08:27 Dose: 1 tab Zinc Sulfate (Zinc Sulfate) 220 mg PO DAILY [place]KTOR[place] Stop: 09/12/18 08:59 Last Admin: 07/14/18 08:27 Dose: 220 m Lab - Result Diagrams 08/02/18 06:01 08/02/18 06:01 continue wound care Pt. had diverting colostomy CXR less congestion, effusion schedule for HD in am started on Puree diet Hgb/Hct down to 6.7/19.9 agree w/ transfusion albumin for BP support Nutritional Asmnt/Malnutr-PDOC - Dietary Evaluation Malnutrition Findings (Please click <Entered> for more info): Nutritional Asmnt/Malnutrition Start: 07/13/18 13: 54 Text: Status: Complete Freq: Protocol: Document 07/13/18 13:56 ALDAIR (Rec: 07/13/18 14:10 MMERIN NASH- [id number]) Nutritional Asmnt/Malnutrition Patient General Information Nutritional Screening Consult Diagnosis ESRD, anasarca Pertinent Medical Hx/Surgical Hx Seizure, hep C, diabetes, CAD, HTN, CVA, quadreplegia, Parkinsons, ESRD Subjective Information Consult received for "Diabetic ". Per nursing notes, patient receives hemodialysis MWF and patient is non-verbal. Patient with 2+ pitting edema. Current Diet Order/ Nutrition Support Renal diet Patient / S.O Not Indicated Pertinent Medications D50W, D5-0.45NS @50 ml/hr, Glucagon, Novolog Pertinent Labs (07/13) Na 134, BUN 48, Cr 2.9, glucose 41-137, Ca 8.2, BNP 515, albumin 2 Nutritional Hx/Data Height 1.73 m Height (Calculated Centimeters) 172.7 Current Weight (lbs) 113.852 kg Weight (Calculated Kilograms) 113.9 Weight (Calculated Grams) 037877.7 [place] Body Weight 140 % [place] Body Weight 179 Body Mass Index (BMI) 38.1 Recent Weight Change No Weight Status Morbidly Obese GI Symptoms GI Symptoms None Last BM 07/13 x 1 Difficult in: Chewing Food Allergies No Cultural/Ethnic/[employer] Belief none indicated Usual diet at home unknown Skin Integrity/Comment: Arian 10, ulceration on sacrum, left lower leg, abrasion on L heel, scar on right leg. Current %PO Good (75-100%) Estimated Nutritional Goals BEE in Kcals: Adj wt of IBW Calories/Kcals/Kg 27-32 kcal/kg (using 76.2kg ADj wt) Kcals Calculated ~8587-6110 kcal/day Protein g/k.2-1.5 gm/kg using Adj wt Protein Calculated ~90-115 gm/day Fluid: ml Per MD due to HD Nutritional Problem 2. Problem Problem Altered nutrition related lab values related to Etiology episodes of hypoglycemia, electrolyte imbalance aeb Signs/Symptoms: Na 134, glucose 41-137, Ca 8.2 1. Problem Problem Increased nutrient needs related to Etiology hypermetabolic state, impaired skin integrity aeb Signs/Symptoms: Pt on Hemodialysis and with multiple ulcerations Intervention/Recommendation Comments 1. Continue Renal diet as tolerated by patient. No need for DM restriction at this time due to hypoglycemia. 2. Consider fluid restriction due to HD, hyponatremia and edema. 3. Consider adding Prosource 1 packet with each meal for an additional 45gm protein. Expected Outcomes/Goals Expected Outcomes/Goals Oral intake >75% of meals, weight stable or trend toward ideal body weight, nutrition related labs WNL
[2018-08-02] MEDS: Atorvastatin Calcium 10 MG TAB PO SCH (20:22)
[2018-08-03] MEDS: Albuterol/Ipratropium Neb 3 ML AERS HHN SCH ×4 (00:36→18:53)
--- NOTE | 2018-08-03 03:31 | Infectious Disease Prog Note ---
Infectious Disease Subjective - Review of Systems Service Date: 08/03/18 Subjective: s/p Debridement of sacral wound and diverting colostomy Infectious Disease Objective - Results Result Diagrams: 08/02/18 06:01 08/02/18 06:01 Recent Labs: Laboratory Last Values WBC 6.3 Th/cmm (4.8-10.8) 08/02/18 06:01 RBC 2.29 Mil/cmm (3.80-5.10) L 08/02/18 06:01 Hgb 6.7 gm/dL (12-16) L* 08/02/18 06:01 Hct 19.9 % (41.0-60) L* 08/02/18 06:01 MCV 87.2 fl (81-100) 08/02/18 06:01 MCH 29.4 pg (27.0-31.0) 08/02/18 06:01 MCHC Differential 33.7 pg (28.0-36.0) 08/02/18 06:01 RDW 16.8 % (11.5-20.0) 08/02/18 06:01 Plt Count 152 Th/cmm (150-400) 08/02/18 06:01 MPV 7.6 fl 08/02/18 06:01 Add Manual Diff YES 08/02/18 06:01 Neutrophils % 49.8 % (40.0-80.0) 08/01/18 06:11 Band Neutrophils % 4 % (0-10) 08/02/18 06:01 Lymphocytes % 36.4 % (20.0-50.0) 08/01/18 06:11 Monocytes % 13.4 % (2.0-10.0) H 08/01/18 06:11 Eosinophils % 0.4 % (0.0-5.0) 08/01/18 06:11 Basophils % 0.0 % (0.0-2.0) 08/01/18 06:11 Neutrophils (Manual) 53 % (40-80) 08/02/18 06:01 Lymphocytes 33 % (20-50) 08/02/18 06:01 Monocytes 10 % (2-10) 08/02/18 06:01 Eosinophils 0 % (0-5) 08/02/18 06:01 Basophils 0 % (0-3) 08/02/18 06:01 Hypochromia 2+ 08/02/18 06:01 Platelet Estimate ADEQUATE (NORMAL) 08/02/18 06:01 PT 17.0 SECONDS (9.5-11.5) H 07/28/18 04:20 INR 1.67 (0.5-1.4) H 07/28/18 04:20 PTT (Actin FS) 43.0 SECONDS (26.0-38.0) H 07/20/18 08:08 Specimen Source Arterial 07/23/18 17:00 Sample Site LB 07/23/18 17:00 pH 7.44 (7.35-7.45) 07/23/18 17:00 pCO2 44.0 mmHg (35.0-45.0) 07/23/18 17:00 pO2 86.0 mmHg (80.0-100.0) 07/23/18 17:00 HCO3 28.9 mEq/L (20.0-26.0) H 07/23/18 17:00 Base Excess 5.1 mEq/L (-3.0-3.0) H 07/23/18 17:00 O2 Saturation 97.0 % (92.0-100.0) 07/23/18 17:00 [place] Test NA 07/23/18 17:00 Vent Rate NA 07/23/18 17:00 Inspired O2 40 07/23/18 17:00 Tidal Volume NA 07/23/18 17:00 PEEP NA 07/23/18 17:00 Pressure (ins/psv/peep) NA 07/23/18 17:00 Critical Value E.QUINTEROS 07/23/18 17:00 Sodium 136 mEq/L (136-145) 08/02/18 06:01 Potassium 3.7 mEq/L (3.5-5.1) 08/02/18 06:01 Chloride 103 mEq/L (98-107) 08/02/18 06:01 Carbon Dioxide 26.8 mEq/L (21.0-31.0) 08/02/18 06:01 Anion Gap 9.9 (7.0-16.0) 08/02/18 06:01 BUN 16 mg/dL (7-25) 08/02/18 06:01 Creatinine 3.4 mg/dL (0.6-1.2) H 08/02/18 06:01 Est GFR ( Amer) 18.4 ml/min (>90) 08/02/18 06:01 Est GFR (Non-Af Amer) 15.2 ml/min 08/02/18 06:01 BUN/Creatinine Ratio 4.7 08/02/18 06:01 Glucose 121 mg/dL (70-105) H 08/02/18 06:01 POC Glucose 123 MG/DL (70 - 105) H 08/02/18 20:11 Whole Bld Lactic Acid 1.29 mmol/L (0.60-1.99) 07/12/18 20:50 Calcium 9.0 mg/dL (8.6-10.3) 08/02/18 06:01 Magnesium 1.6 mg/dL (1.9-2.7) L 07/21/18 05:00 Total Bilirubin 0.4 mg/dL (0.3-1.0) 08/01/18 06:11 AST 19 U/L (13-39) 08/01/18 06:11 ALT 9 U/L (7-52) 08/01/18 06:11 Alkaline Phosphatase 120 U/L (34-104) H 08/01/18 06:11 Creatine Kinase 20 U/L (30-223) L 07/12/18 20:50 Troponin I 0.49 ng/mL (0.01-0.05) H* 07/13/18 15:20 B-Natriuretic Peptide 515.0 pg/mL (5.0-100.0) H 07/13/18 04:00 Total Protein 4.5 gm/dL (6.0-8.3) L 08/01/18 06:11 Albumin 1.6 gm/dL (3.7-5.3) L 08/01/18 06:11 Globulin 2.9 gm/dL 08/01/18 06:11 Albumin/Globulin Ratio 0.6 (1.0-1.8) L 08/01/18 06:11 Triglycerides 53 mg/dL (<150) 07/13/18 04:00 Cholesterol 41 mg/dL (<200) 07/13/18 04:00 LDL Cholesterol Direct 11 mg/dL (75-193) L 07/13/18 04:00 HDL Cholesterol 24 mg/dL (23-92) 07/13/18 04:00 TSH 1.21 uIU/ml (0.34-5.60) 07/13/18 04:00 Urine Source [place] 07/12/18 20:50 Urine Color YELLOW 07/12/18 20:50 Urine Clarity CLOUDY (CLEAR) H 07/12/18 20:50 Urine pH 8.5 (4.6 - 8.0) 07/12/18 20:50 Ur Specific [place] 1.015 (1.005-1.030) 07/12/18 20:50 Urine Protein 100 mg/dL (NEGATIVE) H 07/12/18 20:50 Urine Glucose (UA) NEGATIVE mg/dL (NEGATIVE) 07/12/18 20:50 Urine Ketones NEGATIVE mg/dL (NEGATIVE) 07/12/18 20:50 Urine Blood TRACE (NEGATIVE) 07/12/18 20:50 Urine Nitrate NEGATIVE (NEGATIVE) 07/12/18 20:50 Urine Bilirubin NEGATIVE (NEGATIVE) 07/12/18 20:50 Urine Urobilinogen 0.2 E.U./dL (0.2 - 1.0) 07/12/18 20:50 Ur Leukocyte Esterase LARGE (NEGATIVE) H 07/12/18 20:50 Urine RBC 2-5 /hpf (0-5) 07/12/18 20:50 Urine WBC >100 /hpf (0-5) H 07/12/18 20:50 Ur Epithelial Cells MODERATE /lpf (FEW) 07/12/18 20:50 Urine Bacteria MANY /hpf (NONE SEEN) H 07/12/18 20:50 Amikacin Peak 35.4 ug/mL (20.0-30.0) H 07/25/18 23:55 Amikacin Trough 14.1 ug/mL (1.0-8.0) H 07/25/18 20:30 Random Amikacin 14.8 ug/ml (1.0-30.0) 07/25/18 17:00 Random Vancomycin 25.5 ug/mL (5.0-40.0) 07/24/18 05:50 Blood Type O POSITIVE 08/02/18 09:20 Antibody Screen NEGATIVE 08/02/18 09:20 Crossmatch See Detail 08/02/18 09:20 - Physical Exam Vitals and I&O: Vital Signs Temp 98.5 F 09/24/18 00:00 Pulse 102 08/03/18 00:37 Resp 18 08/03/18 00:37 BP 145/70 08/03/18 00:00 Pulse Ox 100 08/03/18 00:37 Intake & Output 08/02/18 08/02/18 08/03/18 06:59 18:59 06:59 Intake Total 610 750 Output Total 200 250 Balance 410 500 Weight (lbs) 105.687 kg 105.687 kg Intake: Oral 510 250 Blood Product 500 Albumin 100 Output: Drainage 200 50 Sacrum 200 colostomy 50 Urine 50 Stool 50 Other 100 Other: # Voids 0 # Bowel Movements 0 Stool Characteristics Soft Formed Brown Weight Source Bedscale Bedscale Active Medications: Current Medications Acetaminophen (Tylenol) 650 mg PO Q6H PRN PRN Reason: Mild Pain or Fever >101 Stop: 09/11/18 15:14 Acetaminophen/Hydrocodone Bitart ([place] 5mg/325mg) 1 tab PO Q4H PRN PRN Reason: Pain (Moderate) Stop: 09/27/18 14:34 Last Admin: 08/02/18 05:50 Dose: 1 tab Albuterol/Ipratropium (Duoneb Neb) 3 ml HHN Q4HRT PRN PRN Reason: Shortness of Breath or Wheeze Stop: 09/11/18 15:14 Albuterol/Ipratropium (Duoneb Neb) 3 ml HHN Q6HRT [facility] Stop: 09/21/18 18:59 Last Admin: 08/03/18 00:36 Dose: 3 ml Ascorbic Acid (Vitamin C) 500 mg PO DAILY [facility] Stop: 09/12/18 08:59 Last Admin: 08/02/18 09:00 Dose: Not Given Atorvastatin Calcium (Lipitor) 20 mg PO HS [facility] Stop: 09/11/18 20:59 Last Admin: 08/02/18 20:22 Dose: 20 mg [place] Oil/Cypriot Balsam/Trypsin (Venelex) 1 appl TP DAILY [facility] Stop: 09/13/18 08:59 Last Admin: 08/02/18 09:00 Dose: Not Given Dextrose (Glutose 40%) 18.75 gm PO PRN PRN PRN Reason: Blood Glucose less than 70 Stop: 09/11/18 04:10 Docusate Sodium (Colace) 100 mg PO BID [facility] Stop: 09/11/18 16:59 Last Admin: 08/02/18 16:57 Dose: 100 mg Epoetin Evelio (Epogen) 10,000 units SUBQ MoWeFr [facility] Stop: 09/29/18 12:44 Last Admin: 07/31/18 13:46 Dose: 10,000 units Famotidine (Pepcid) 20 mg PO DAILY [facility] Stop: 09/12/18 08:59 Last Admin: 08/02/18 09:00 Dose: Not Given Folic Acid (Folate) 1 mg PO DAILY [place] Stop: 09/12/18 08:59 Last Admin: 08/02/18 09:00 Dose: Not Given Glucagon (Glucagen) 1 mg IM PRN PRN PRN Reason: Blood Glucose less than 70 Stop: 09/11/18 04:10 Heparin Sodium (Porcine) (Heparin) 5,000 units SUBQ Q12HR [facility] Stop: 09/26/18 20:59 Last Admin: 08/02/18 20:16 Dose: 5,000 units Insulin Aspart (Novolog Insulin Sliding Scale) 0 units SUBQ [facility]; Protocol Stop: 09/28/18 11:29 Last Admin: 08/02/18 21:00 Dose: Not Given Lactobacillus Rhamnosus (Culturelle 15b) 1 each PO DAILY [facility] Stop: 09/13/18 13:59 Last Admin: 08/02/18 09:00 Dose: Not Given Levothyroxine Sodium (Synthroid) 0.025 mg PO QDAC [facility] Stop: 09/12/18 07:29 Last Admin: 08/02/18 06:45 Dose: 0.025 mg Miscellaneous (Probiotic Screen) 1 ea MC PRN PRN PRN Reason: PROTOCOL Stop: 09/13/18 11:44 Miscellaneous (Clinical Monitoring) 1 ea MC DAILY PRN PRN Reason: RENAL DOSING Stop: 09/27/18 08:38 Oxcarbazepine (Trileptal) 600 mg PO BID [facility] Stop: 09/11/18 16:59 Last Admin: 08/02/18 16:58 Dose: 600 mg Risperidone (Risperdal) 2 mg PO HS [facility] Stop: 09/11/18 20:59 Last Admin: 08/02/18 20:22 Dose: 2 mg Senna (Senna) 17.2 mg PO BID [facility] Stop: 09/11/18 16:59 Last Admin: 08/02/18 16:58 Dose: 17.2 mg Sevelamer Carbonate (Renvela) 800 mg PO TIDWM [facility] Stop: 09/11/18 16:59 Last Admin: 08/02/18 16:58 Dose: Not Given Vitamin B Complex/Vit C/Folic Acid (Vitamin B Complex W/Vitamin C) 1 tab PO DAILY VIKTORIA Stop: 09/12/18 08:59 Last Admin: 08/02/18 09:00 Dose: Not Given Zinc Sulfate (Zinc Sulfate) 220 mg PO DAILY VIKTORIA Stop: 09/12/18 08:59 Last Admin: 08/02/18 09:00 Dose: Not Given General: no acute distress, well developed, well nourished HEENT: atraumatic, normocephalic, PERRLA Neck: supple, no thyromegaly Cardiovascular: S1S2, regular Lungs: clear to auscultation bilaterally, clear to percussion Abdomen: soft, no tender, no distended, no mass Extremities: no cyanosis, no clubbing, no edema - Procedures Procedures: Procedures Procedure Code Date BYPASS DESCENDING COLON TO CUTANEOUS, OPEN APPROACH [id number] 07/12/18 EXCISION OF L LOW LEG SUBCU/FASCIA, OPEN APPROACH [id number] 07/12/18 EXCISION OF SACRUM, OPEN APPROACH [id number] 07/12/18 EXCISION OF SIGMOID COLON, OPEN APPROACH [id number] 07/12/18 RESPIRATORY VENTILATION, LESS THAN 24 CONSECUTIVE HOURS [id number] 07/12/18 Infectious Disease Assmt/Plan - Problem List Patient Problems: All Active Problems Anasarca (Acute) R60.1 Anemia (Acute) D64.9 CAD (coronary artery disease) (Acute) I25.10 CHF (congestive heart failure) (Acute) I50.9 CKD (chronic kidney disease) (Acute) N18.9 HTN (hypertension) (Acute) I10 UTI (urinary tract infection) (Acute) sacral stage 4 wound (Acute) - Assessment Assessment: 1. UTI 2. Staph CN in blood contaminant. 3. Hypoglycemia. 4. Diabetes mellitus type 1 with episodes of hypoglycemia. 5. Hypertension. 6. Anemia of chronic disease. 7. Coronary artery disease, 8. CHF.. 9. Anasarca 10. 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 11. sacral stage 4 wound. No evidence of osteimyelitis, 12. S/p Diverting colostomy. - Plan Plan: offantibiotics. wound care. Nutritional Asmnt/Malnutr-PDOC - Dietary Evaluation Malnutrition Findings (Please click <Entered> for more info): Nutritional Asmnt/Malnutrition Start: 07/13/18 13: 54 Text: Status: Complete Freq: Protocol: Document 07/13/18 13:56 MMULNACHO (Rec: 07/13/18 14:10 [email or web address] NASH- [id number]) Nutritional Asmnt/Malnutrition Patient General Information Nutritional Screening Consult Diagnosis ESRD, anasarca Pertinent Medical Hx/Surgical Hx Seizure, hep C, diabetes, CAD, HTN, CVA, quadreplegia, Parkinsons, ESRD Subjective Information Consult received for "Diabetic ". Per nursing notes, patient receives hemodialysis MWF and patient is non-verbal. Patient with 2+ pitting edema. Current Diet Order/ Nutrition Support Renal diet Patient / S.O Not Indicated Pertinent Medications D50W, D5-0.45NS @50 ml/hr, Glucagon, Novolog Pertinent Labs (07/13) Na 134, BUN 48, Cr 2.9, glucose 41-137, Ca 8.2, BNP 515, albumin 2 Nutritional Hx/Data Height 1.73 m Height (Calculated Centimeters) 172.7 Current Weight (lbs) 113.852 kg Weight (Calculated Kilograms) 113.9 Weight (Calculated Grams) 335027.7 [place] Body Weight 140 % [place] Body Weight 179 Body Mass Index (BMI) 38.1 Recent Weight Change No Weight Status Morbidly Obese GI Symptoms GI Symptoms None Last BM 07/13 x 1 Difficult in: Chewing Food Allergies No Cultural/Ethnic/Adventism Belief none indicated Usual diet at home unknown Skin Integrity/Comment: Arian 10, ulceration on sacrum, left lower leg, abrasion on L heel, scar on right leg. Current %PO Good (75-100%) Estimated Nutritional Goals BEE in Kcals: Adj wt of IBW Calories/Kcals/Kg 27-32 kcal/kg (using 76.2kg ADj wt) Kcals Calculated ~1040-6483 kcal/day Protein g/k.2-1.5 gm/kg using Adj wt Protein Calculated ~90-115 gm/day Fluid: ml Per MD due to HD Nutritional Problem 2. Problem Problem Altered nutrition related lab values related to Etiology episodes of hypoglycemia, electrolyte imbalance aeb Signs/Symptoms: Na 134, glucose 41-137, Ca 8.2 1. Problem Problem Increased nutrient needs related to Etiology hypermetabolic state, impaired skin integrity aeb Signs/Symptoms: Pt on Hemodialysis and with multiple ulcerations Intervention/Recommendation Comments 1. Continue Renal diet as tolerated by patient. No need for DM restriction at this time due to hypoglycemia. 2. Consider fluid restriction due to HD, hyponatremia and edema. 3. Consider adding Prosource 1 packet with each meal for an additional 45gm protein. Expected Outcomes/Goals Expected Outcomes/Goals Oral intake >75% of meals, weight stable or trend toward ideal body weight, nutrition related labs WNL
[2018-08-03 06:37] LABS: % BASOPHILS 0.1 % (0.0-2.0); % EOSINOPHILS 0.6 % (0.0-5.0); % LYMPHOCYTES 30.6 % (20.0-50.0); % MONOCYTES 14.1 % (2.0-10.0); % NEUTROPHILS 54.6 % (40.0-80.0); LYMPHOCYTE ABSOLUTE 1.9 Th/cmm (1.5-3.0); MEAN CELL VOLUME 86.8 fl (81-100); MEAN CORPUSCULAR HEMOGLOBIN 29.1 pg (27.0-31.0); MEAN CORPUSCULAR HGB CONC 33.6 pg (28.0-36.0); MEAN PLATELET VOLUME 7.2 fl; MONOCYTE ABSOLUTE 0.9 Th/cmm (0.3-1.0); NEUTROPHILE ABSOLUTE 3.5 Th/cmm (1.8-8.0); PLATELET COUNT 158 Th/cmm (150-400); RED BLOOD COUNT 3.57 Mil/cmm (3.80-5.10); RED CELL DISTRIBUTION WIDTH 15.4 % (11.5-20.0); WHITE BLOOD COUNT 6.3 Th/cmm (4.8-10.8)
[2018-08-03] MEDS: Levothyroxine 0.025 Mg Tab PO SCH (06:53)
[2018-08-03 07:00] LABS: HEMOGLOBIN 10.4 gm/dL (12-16)
[2018-08-03 07:01] LABS: ANION GAP 11.8 (7.0-16.0); CALCIUM SERUM 9.1 mg/dL (8.6-10.3); GFR AFRICAN-AMERICAN 15.2 ml/min (>90); GFR NON AFRICAN-AMERICAN 12.6 ml/min; POTASSIUM SERUM 3.8 mEq/L (3.5-5.1)
[2018-08-03] MEDS: INSULIN ASPART SLIDING SCALE 100 UNITS/ML UNIT SUBQ SCH ×4 (07:40→22:05)
[2018-08-03] MEDS: Lactobacillus Rhamnosus GG 15 Billion CFU CAP.SPRINK PO SCH (09:14)
[2018-08-03] MEDS: Docusate Sodium 100 mg/10 mL UD PO SCH ×2 (09:14→17:56)
[2018-08-03] MEDS: Vitamin B Complex w/Vitamin C Tab PO SCH (09:15)
--- NOTE | 2018-08-03 11:37 | General Progress Note ---
Subjective - Review of Systems Service Date: 08/03/18 Subjective: alert, comfortable, on puree diet Objective - Results Result Diagrams: 08/03/18 06:00 08/03/18 06:00 Recent Labs: Laboratory Last Values WBC 6.3 Th/cmm (4.8-10.8) 08/03/18 06:00 RBC 3.57 Mil/cmm (3.80-5.10) L 08/03/18 06:00 Hgb 10.4 gm/dL (12-16) L D 08/03/18 06:00 Hct 31.0 % (41.0-60) L D 08/03/18 06:00 MCV 86.8 fl (81-100) 08/03/18 06:00 MCH 29.1 pg (27.0-31.0) 08/03/18 06:00 MCHC Differential 33.6 pg (28.0-36.0) 08/03/18 06:00 RDW 15.4 % (11.5-20.0) 08/03/18 06:00 Plt Count 158 Th/cmm (150-400) 08/03/18 06:00 MPV 7.2 fl 08/03/18 06:00 Add Manual Diff YES 08/02/18 06:01 Neutrophils % 54.6 % (40.0-80.0) 08/03/18 06:00 Band Neutrophils % 4 % (0-10) 08/02/18 06:01 Lymphocytes % 30.6 % (20.0-50.0) 08/03/18 06:00 Monocytes % 14.1 % (2.0-10.0) H 08/03/18 06:00 Eosinophils % 0.6 % (0.0-5.0) 08/03/18 06:00 Basophils % 0.1 % (0.0-2.0) 08/03/18 06:00 Neutrophils (Manual) 53 % (40-80) 08/02/18 06:01 Lymphocytes 33 % (20-50) 08/02/18 06:01 Monocytes 10 % (2-10) 08/02/18 06:01 Eosinophils 0 % (0-5) 08/02/18 06:01 Basophils 0 % (0-3) 08/02/18 06:01 Hypochromia 2+ 08/02/18 06:01 Platelet Estimate ADEQUATE (NORMAL) 08/02/18 06:01 PT 17.0 SECONDS (9.5-11.5) H 07/28/18 04:20 INR 1.67 (0.5-1.4) H 07/28/18 04:20 PTT (Actin FS) 43.0 SECONDS (26.0-38.0) H 07/20/18 08:08 Specimen Source Arterial 07/23/18 17:00 Sample Site LB 07/23/18 17:00 pH 7.44 (7.35-7.45) 07/23/18 17:00 pCO2 44.0 mmHg (35.0-45.0) 07/23/18 17:00 pO2 86.0 mmHg (80.0-100.0) 07/23/18 17:00 HCO3 28.9 mEq/L (20.0-26.0) H 07/23/18 17:00 Base Excess 5.1 mEq/L (-3.0-3.0) H 07/23/18 17:00 O2 Saturation 97.0 % (92.0-100.0) 07/23/18 17:00 [place] Test NA 07/23/18 17:00 Vent Rate NA 07/23/18 17:00 Inspired O2 40 07/23/18 17:00 Tidal Volume NA 07/23/18 17:00 PEEP NA 07/23/18 17:00 Pressure (ins/psv/peep) NA 07/23/18 17:00 Critical Value E.QUINTEROS 07/23/18 17:00 Sodium 135 mEq/L (136-145) L 08/03/18 06:00 Potassium 3.8 mEq/L (3.5-5.1) 08/03/18 06:00 Chloride 103 mEq/L (98-107) 08/03/18 06:00 Carbon Dioxide 24.0 mEq/L (21.0-31.0) 08/03/18 06:00 Anion Gap 11.8 (7.0-16.0) 08/03/18 06:00 BUN 16 mg/dL (7-25) 08/03/18 06:00 Creatinine 4.0 mg/dL (0.6-1.2) H 08/03/18 06:00 Est GFR ( Amer) 15.2 ml/min (>90) 08/03/18 06:00 Est GFR (Non-Af Amer) 12.6 ml/min 08/03/18 06:00 BUN/Creatinine Ratio 4.0 08/03/18 06:00 Glucose 154 mg/dL (70-105) H 08/03/18 06:00 POC Glucose 128 MG/DL (70 - 105) H 08/03/18 05:15 Whole Bld Lactic Acid 1.29 mmol/L (0.60-1.99) 07/12/18 20:50 Calcium 9.1 mg/dL (8.6-10.3) 08/03/18 06:00 Magnesium 1.6 mg/dL (1.9-2.7) L 07/21/18 05:00 Total Bilirubin 0.4 mg/dL (0.3-1.0) 08/01/18 06:11 AST 19 U/L (13-39) 08/01/18 06:11 ALT 9 U/L (7-52) 08/01/18 06:11 Alkaline Phosphatase 120 U/L (34-104) H 08/01/18 06:11 Creatine Kinase 20 U/L (30-223) L 07/12/18 20:50 Troponin I 0.49 ng/mL (0.01-0.05) H* 07/13/18 15:20 B-Natriuretic Peptide 515.0 pg/mL (5.0-100.0) H 07/13/18 04:00 Total Protein 4.5 gm/dL (6.0-8.3) L 08/01/18 06:11 Albumin 1.6 gm/dL (3.7-5.3) L 08/01/18 06:11 Globulin 2.9 gm/dL 08/01/18 06:11 Albumin/Globulin Ratio 0.6 (1.0-1.8) L 08/01/18 06:11 Triglycerides 53 mg/dL (<150) 07/13/18 04:00 Cholesterol 41 mg/dL (<200) 07/13/18 04:00 LDL Cholesterol Direct 11 mg/dL (75-193) L 07/13/18 04:00 HDL Cholesterol 24 mg/dL (23-92) 07/13/18 04:00 TSH 1.21 uIU/ml (0.34-5.60) 07/13/18 04:00 Urine Source [place] 07/12/18 20:50 Urine Color YELLOW 07/12/18 20:50 Urine Clarity CLOUDY (CLEAR) H 07/12/18 20:50 Urine pH 8.5 (4.6 - 8.0) 07/12/18 20:50 Ur Specific [place] 1.015 (1.005-1.030) 07/12/18 20:50 Urine Protein 100 mg/dL (NEGATIVE) H 07/12/18 20:50 Urine Glucose (UA) NEGATIVE mg/dL (NEGATIVE) 07/12/18 20:50 Urine Ketones NEGATIVE mg/dL (NEGATIVE) 07/12/18 20:50 Urine Blood TRACE (NEGATIVE) 07/12/18 20:50 Urine Nitrate NEGATIVE (NEGATIVE) 07/12/18 20:50 Urine Bilirubin NEGATIVE (NEGATIVE) 07/12/18 20:50 Urine Urobilinogen 0.2 E.U./dL (0.2 - 1.0) 07/12/18 20:50 Ur Leukocyte Esterase LARGE (NEGATIVE) H 07/12/18 20:50 Urine RBC 2-5 /hpf (0-5) 07/12/18 20:50 Urine WBC >100 /hpf (0-5) H 07/12/18 20:50 Ur Epithelial Cells MODERATE /lpf (FEW) 07/12/18 20:50 Urine Bacteria MANY /hpf (NONE SEEN) H 07/12/18 20:50 Amikacin Peak 35.4 ug/mL (20.0-30.0) H 07/25/18 23:55 Amikacin Trough 14.1 ug/mL (1.0-8.0) H 07/25/18 20:30 Random Amikacin 14.8 ug/ml (1.0-30.0) 07/25/18 17:00 Random Vancomycin 25.5 ug/mL (5.0-40.0) 07/24/18 05:50 Blood Type O POSITIVE 08/02/18 09:20 Antibody Screen NEGATIVE 08/02/18 09:20 Crossmatch See Detail 08/02/18 09:20 - Physical Exam Vitals and I&O: Vital Signs Temp 97.7 F 08/03/18 07:50 Pulse 113 08/03/18 07:50 Resp 20 09/24/18 07:50 BP 148/89 08/03/18 07:50 Pulse Ox 95 08/03/18 07:50 Intake & Output 08/02/18 08/03/18 08/03/18 18:59 06:59 18:59 Intake Total 750 Output Total 250 Balance 500 Weight (lbs) 105.687 kg Intake: Oral 250 Blood Product 500 Output: Drainage 50 colostomy 50 Urine 50 Stool 50 Other 100 Other: Stool Characteristics Soft Formed Brown Weight Source Bedscale Active Medications: Current Medications Acetaminophen (Tylenol) 650 mg PO Q6H PRN PRN Reason: Mild Pain or Fever >101 Stop: 09/11/18 15:14 Acetaminophen/Hydrocodone Bitart ([place] 5mg/325mg) 1 tab PO Q4H PRN PRN Reason: Pain (Moderate) Stop: 09/27/18 14:34 Last Admin: 08/02/18 05:50 Dose: 1 tab Albuterol/Ipratropium (Duoneb Neb) 3 ml HHN Q4HRT PRN PRN Reason: Shortness of Breath or Wheeze Stop: 09/11/18 15:14 Albuterol/Ipratropium (Duoneb Neb) 3 ml HHN Q6HRT [facility] Stop: 09/21/18 18:59 Last Admin: 08/03/18 06:56 Dose: 3 ml Ascorbic Acid (Vitamin C) 500 mg PO DAILY [facility] Stop: 09/12/18 08:59 Last Admin: 08/03/18 09:16 Dose: 500 mg Atorvastatin Calcium (Lipitor) 20 mg PO HS [facility] Stop: 09/11/18 20:59 Last Admin: 08/02/18 20:22 Dose: 20 mg [place] Oil/[place] Balsam/Trypsin (Venelex) 1 appl TP DAILY [facility] Stop: 09/13/18 08:59 Last Admin: 08/02/18 09:00 Dose: Not Given Dextrose (Glutose 40%) 18.75 gm PO PRN PRN PRN Reason: Blood Glucose less than 70 Stop: 09/11/18 04:10 Docusate Sodium (Colace) 100 mg PO BID [facility] Stop: 09/11/18 16:59 Last Admin: 08/03/18 09:14 Dose: 100 mg Epoetin Evelio (Epogen) 10,000 units SUBQ MoWeFr [facility] Stop: 09/29/18 12:44 Last Admin: 07/31/18 13:46 Dose: 10,000 units Famotidine (Pepcid) 20 mg PO DAILY [facility] Stop: 09/12/18 08:59 Last Admin: 08/03/18 09:15 Dose: 20 mg Folic Acid (Folate) 1 mg PO DAILY [facility] Stop: 09/12/18 08:59 Last Admin: 08/03/18 09:16 Dose: 1 mg Glucagon (Glucagen) 1 mg IM PRN PRN PRN Reason: Blood Glucose less than 70 Stop: 09/11/18 04:10 Heparin Sodium (Porcine) (Heparin) 5,000 units SUBQ Q12HR [facility] Stop: 09/26/18 20:59 Last Admin: 08/03/18 09:17 Dose: 5,000 units Insulin Aspart (Novolog Insulin Sliding Scale) 0 units SUBQ ACHS [facility]; Protocol Stop: 09/28/18 11:29 Last Admin: 08/03/18 07:40 Dose: Not Given Lactobacillus Rhamnosus (Culturelle 15b) 1 each PO DAILY [facility] Stop: 09/13/18 13:59 Last Admin: 08/03/18 09:14 Dose: 1 each Levothyroxine Sodium (Synthroid) 0.025 mg PO QDAC [facility] Stop: 09/12/18 07:29 Last Admin: 08/03/18 06:53 Dose: 0.025 mg Miscellaneous (Probiotic Screen) 1 ea PRN PRN PRN Reason: PROTOCOL Stop: 09/13/18 11:44 Miscellaneous (Clinical Monitoring) 1 ea MC DAILY PRN PRN Reason: RENAL DOSING Stop: 09/27/18 08:38 Oxcarbazepine (Trileptal) 600 mg PO BID [facility] Stop: 09/11/18 16:59 Last Admin: 08/03/18 09:15 Dose: 600 mg Risperidone (Risperdal) 2 mg PO HS [facility] Stop: 09/11/18 20:59 Last Admin: 08/02/18 20:22 Dose: 2 mg Senna (Senna) 17.2 mg PO BID [facility] Stop: 09/11/18 16:59 Last Admin: 08/03/18 09:15 Dose: 17.2 mg Sevelamer Carbonate (Renvela) 800 mg PO TIDWM [facility] Stop: 09/11/18 16:59 Last Admin: 08/03/18 09:15 Dose: 800 mg Vitamin B Complex/Vit C/Folic Acid (Vitamin B Complex W/Vitamin C) 1 tab PO DAILY [facility] Stop: 09/12/18 08:59 Last Admin: 08/03/18 09:15 Dose: 1 tab Zinc Sulfate (Zinc Sulfate) 220 mg PO DAILY [facility] Stop: 09/12/18 08:59 Last Admin: 08/03/18 09:15 Dose: 220 mg General: Alert, Mild distress HEENT: Atraumatic, EOMI Neck: Supple, +2 carotid pulse wo bruit Cardiovascular: Regular rate, Normal S1, Normal S2 Lungs: Other (scattered rhonchi) Abdomen: Bowel sounds, Soft Extremities: Edema ((+) 2-3 edema), Other ((+) 2 bipedal edema) Neurological: Sensation intact Skin: no Rash Psych/Mental Status: Mood NL - Procedures Procedures: Procedures Procedure Code Date BYPASS DESCENDING COLON TO CUTANEOUS, OPEN APPROACH [id number] 07/12/18 EXCISION OF L LOW LEG SUBCU/FASCIA, OPEN APPROACH [id number] 07/12/18 EXCISION OF SACRUM, OPEN APPROACH [id number] 07/12/18 EXCISION OF SIGMOID COLON, OPEN APPROACH [id number] 07/12/18 RESPIRATORY VENTILATION, LESS THAN 24 CONSECUTIVE HOURS [id number] 07/12/18 Assessment/Plan - Problem List Patient Problems: All Active Problems Anasarca (Acute) R60.1 Anemia (Acute) D64.9 CAD (coronary artery disease) (Acute) I25.10 CHF (congestive heart failure) (Acute) I50.9 CKD (chronic kidney disease) (Acute) N18.9 HTN (hypertension) (Acute) I10 UTI (urinary tract infection) (Acute) sacral stage 4 wound (Acute) - Assessment Assessment: ESRD on HD Hypothyroid Parkinson Ds. Fnc Quad Hep B,C GERD Left Calf ulcer Sacral Decub ulcer stage 4, w/ wound vacuum Cholelithiasis B/L HAP w/ effusions Peripheral edema Left SFV DVT S/P Diverting Colostomy - Plan Plan: Lab - Result Diagrams 07/14/18 05:00 07/14/18 05:00 Current Medications Acetaminophen (Tylenol) 650 mg PO Q6H PRN PRN Reason: Pain or Fever >101 Stop: 09/11/18 15:14 Acetaminophen/Hydrocodone Bitart ([place] 5mg/325mg) 1 tab PO Q6H PRN PRN Reason: Pain (Severe) Stop: 09/11/18 15:14 Albuterol/Ipratropium (Duoneb Neb) 3 ml HHN Q4HRT PRN PRN Reason: Shortness of Breath or Wheeze Stop: 09/11/18 15:14 Ascorbic Acid (Vitamin C) 500 mg PO DAILY [facility] Stop: 09/12/18 08:59 Last Admin: 07/14/18 08:27 Dose: 500 mg Atorvastatin Calcium (Lipitor) 20 mg PO HS [facility] Stop: 09/11/18 20:59 Last Admin: 07/13/18 21:05 Dose: 20 mg Dextrose (D50w) 50 ml IVP PRN PRN PRN Reason: Blood Glucose less than 70 Stop: 09/11/18 04:10 Dextrose (Glutose 40%) 18.75 gm PO PRN PRN PRN Reason: Blood Glucose less than 70 Stop: 09/11/18 04:10 Docusate Sodium (Colace) 100 mg PO BID [facility] Stop: 09/11/18 16:59 Last Admin: 07/14/18 08:27 Dose: 100 mg Famotidine (Pepcid) 20 mg PO DAILY [facility] Stop: 09/12/18 08:59 Last Admin: 07/14/18 08:27 Dose: 20 mg Folic Acid (Folate) 1 mg PO DAILY [facility] Stop: 09/12/18 08:59 Last Admin: 07/14/18 08:27 Dose: 1 mg Glucagon (Glucagen) 1 mg IM PRN PRN PRN Reason: Blood Glucose less than 70 Stop: 09/11/18 04:10 Piperacillin Sod/Tazobactam (Sod 2.25 gm/ Sodium Chloride) 50 mls @ 100 mls/hr IV Q6H [facility] Stop: 09/11/18 05:59 Last Admin: 07/14/18 06:05 Dose: Not Given Dextrose/Sodium Chloride (D5-0.45ns) 1,000 mls @ 50 mls/hr IV .Q20H [facility] Stop: 09/11/18 02:29 Last Admin: 07/13/18 04:03 Dose: 50 mls/hr Insulin Aspart (Novolog Insulin Sliding Scale) 0 units SUBQ Q6HR [facility]; Protocol Stop: 09/11/18 05:59 Last Admin: 07/14/18 06:05 Dose: Not Given Levothyroxine Sodium (Synthroid) 0.025 mg PO QDAC [facility] Stop: 09/12/18 07:29 Last Admin: 07/14/18 06:35 Dose: 0.025 mg Miscellaneous (Vancomycin Iv Per Pharmacy) 1 ea MC PRN PRN PRN Reason: PROTOCOL Stop: 09/10/18 23:40 Oxcarbazepine (Trileptal) 600 mg PO BID [facility] Stop: 09/11/18 16:59 Last Admin: 07/14/18 08:27 Dose: 600 mg Risperidone (Risperdal) 2 mg PO HS [facility] Stop: 09/11/18 20:59 Last Admin: 07/13/18 21:05 Dose: 2 mg Senna (Senna) 17.2 mg PO BID [facility] Stop: 09/11/18 16:59 Last Admin: 07/14/18 08:27 Dose: 17.2 mg Sevelamer Carbonate (Renvela) 800 mg PO TIDWM [facility] Stop: 09/11/18 16:59 Last Admin: 07/14/18 08:27 Dose: 800 mg Temazepam (Restoril) 15 mg PO HS PRN; Protocol PRN Reason: Insomnia Stop: 09/11/18 15:14 Vitamin B Complex/Vit C/Folic Acid (Vitamin B Complex W/Vitamin C) 1 tab PO DAILY [facility] Stop: 09/12/18 08:59 Last Admin: 07/14/18 08:27 Dose: 1 tab Zinc Sulfate (Zinc Sulfate) 220 mg PO DAILY [facility] Stop: 09/12/18 08:59 Last Admin: 07/14/18 08:27 Dose: 220 m Lab - Result Diagrams 08/03/18 06:00 08/03/18 06:00 continue wound care Pt. had diverting colostomy CXR less congestion, effusion schedule for HD today started on Puree diet Hgb/Hct improved to 10.4/31 after transfusion albumin for BP support Nutritional Asmnt/Malnutr-PDOC - Dietary Evaluation Malnutrition Findings (Please click <Entered> for more info): Nutritional Asmnt/Malnutrition Start: 07/13/18 13: 54 Text: Status: Complete Freq: Protocol: Document 07/13/18 13:56 ALDAIR (Rec: 07/13/18 14:10 ALDAIR [id number]) Nutritional Asmnt/Malnutrition Patient General Information Nutritional Screening Consult Diagnosis ESRD, anasarca Pertinent Medical Hx/Surgical Hx Seizure, hep C, diabetes, CAD, HTN, CVA, quadreplegia, Parkinsons, ESRD Subjective Information Consult received for "Diabetic ". Per nursing notes, patient receives hemodialysis MWF and patient is non-verbal. Patient with 2+ pitting edema. Current Diet Order/ Nutrition Support Renal diet Patient / S.O Not Indicated Pertinent Medications D50W, D5-0.45NS @50 ml/hr, Glucagon, Novolog Pertinent Labs (07/13) Na 134, BUN 48, Cr 2.9, glucose 41-137, Ca 8.2, BNP 515, albumin 2 Nutritional Hx/Data Height 1.73 m Height (Calculated Centimeters) 172.7 Current Weight (lbs) 113.852 kg Weight (Calculated Kilograms) 113.9 Weight (Calculated Grams) 776105.7 [place] Body Weight 140 % [place] Body Weight 179 Body Mass Index (BMI) 38.1 Recent Weight Change No Weight Status Morbidly Obese GI Symptoms GI Symptoms None Last BM 07/13 x 1 Difficult in: Chewing Food Allergies No Cultural/Ethnic/Mormon Belief none indicated Usual diet at home unknown Skin Integrity/Comment: Arian 10, ulceration on sacrum, left lower leg, abrasion on L heel, scar on right leg. Current %PO Good (75-100%) Estimated Nutritional Goals BEE in Kcals: Adj wt of IBW Calories/Kcals/Kg 27-32 kcal/kg (using 76.2kg ADj wt) Kcals Calculated ~1398-8955 kcal/day Protein g/k.2-1.5 gm/kg using Adj wt Protein Calculated ~90-115 gm/day Fluid: ml Per MD due to HD Nutritional Problem 2. Problem Problem Altered nutrition related lab values related to Etiology episodes of hypoglycemia, electrolyte imbalance aeb Signs/Symptoms: Na 134, glucose 41-137, Ca 8.2 1. Problem Problem Increased nutrient needs related to Etiology hypermetabolic state, impaired skin integrity aeb Signs/Symptoms: Pt on Hemodialysis and with multiple ulcerations Intervention/Recommendation Comments 1. Continue Renal diet as tolerated by patient. No need for DM restriction at this time due to hypoglycemia. 2. Consider fluid restriction due to HD, hyponatremia and edema. 3. Consider adding Prosource 1 packet with each meal for an additional 45gm protein. Expected Outcomes/Goals Expected Outcomes/Goals Oral intake >75% of meals, weight stable or trend toward ideal body weight, nutrition related labs WNL
[2018-08-03] MEDS: Epoetin Alfa 20000 Units/mL Vial SUBQ SCH (14:20)
[2018-08-03] MEDS: Hydrocodone/APAP 5mg/325mg Tab PO PRN (15:30)
[2018-08-03] MEDS: Venelex 60gm Tube TP SCH (17:00)
[2018-08-03] MEDS: Atorvastatin Calcium 10 MG TAB PO SCH (21:46)
[2018-08-04] MEDS: Albuterol/Ipratropium Neb 3 ML AERS HHN SCH ×4 (00:11→19:17)
--- NOTE | 2018-08-04 00:51 | Infectious Disease Prog Note ---
Infectious Disease Subjective - Review of Systems Service Date: 08/04/18 Subjective: s/p Debridement of sacral wound and diverting colostomy Infectious Disease Objective - Results Result Diagrams: 08/03/18 06:00 08/03/18 06:00 Recent Labs: Laboratory Last Values WBC 6.3 Th/cmm (4.8-10.8) 08/03/18 06:00 RBC 3.57 Mil/cmm (3.80-5.10) L 08/03/18 06:00 Hgb 10.4 gm/dL (12-16) L D 08/03/18 06:00 Hct 31.0 % (41.0-60) L D 08/03/18 06:00 MCV 86.8 fl (81-100) 08/03/18 06:00 MCH 29.1 pg (27.0-31.0) 08/03/18 06:00 MCHC Differential 33.6 pg (28.0-36.0) 08/03/18 06:00 RDW 15.4 % (11.5-20.0) 08/03/18 06:00 Plt Count 158 Th/cmm (150-400) 08/03/18 06:00 MPV 7.2 fl 08/03/18 06:00 Add Manual Diff YES 08/02/18 06:01 Neutrophils % 54.6 % (40.0-80.0) 08/03/18 06:00 Band Neutrophils % 4 % (0-10) 08/02/18 06:01 Lymphocytes % 30.6 % (20.0-50.0) 08/03/18 06:00 Monocytes % 14.1 % (2.0-10.0) H 08/03/18 06:00 Eosinophils % 0.6 % (0.0-5.0) 08/03/18 06:00 Basophils % 0.1 % (0.0-2.0) 08/03/18 06:00 Neutrophils (Manual) 53 % (40-80) 08/02/18 06:01 Lymphocytes 33 % (20-50) 08/02/18 06:01 Monocytes 10 % (2-10) 08/02/18 06:01 Eosinophils 0 % (0-5) 08/02/18 06:01 Basophils 0 % (0-3) 08/02/18 06:01 Hypochromia 2+ 08/02/18 06:01 Platelet Estimate ADEQUATE (NORMAL) 08/02/18 06:01 PT 17.0 SECONDS (9.5-11.5) H 07/28/18 04:20 INR 1.67 (0.5-1.4) H 07/28/18 04:20 PTT (Actin FS) 43.0 SECONDS (26.0-38.0) H 07/20/18 08:08 Specimen Source Arterial 07/23/18 17:00 Sample Site LB 07/23/18 17:00 pH 7.44 (7.35-7.45) 07/23/18 17:00 pCO2 44.0 mmHg (35.0-45.0) 07/23/18 17:00 pO2 86.0 mmHg (80.0-100.0) 07/23/18 17:00 HCO3 28.9 mEq/L (20.0-26.0) H 07/23/18 17:00 Base Excess 5.1 mEq/L (-3.0-3.0) H 07/23/18 17:00 O2 Saturation 97.0 % (92.0-100.0) 07/23/18 17:00 [place] Test NA 07/23/18 17:00 Vent Rate NA 07/23/18 17:00 Inspired O2 40 07/23/18 17:00 Tidal Volume NA 07/23/18 17:00 PEEP NA 07/23/18 17:00 Pressure (ins/psv/peep) NA 07/23/18 17:00 Critical Value E.QUINTEROS 07/23/18 17:00 Sodium 135 mEq/L (136-145) L 08/03/18 06:00 Potassium 3.8 mEq/L (3.5-5.1) 08/03/18 06:00 Chloride 103 mEq/L (98-107) 08/03/18 06:00 Carbon Dioxide 24.0 mEq/L (21.0-31.0) 08/03/18 06:00 Anion Gap 11.8 (7.0-16.0) 08/03/18 06:00 BUN 16 mg/dL (7-25) 08/03/18 06:00 Creatinine 4.0 mg/dL (0.6-1.2) H 08/03/18 06:00 Est GFR ( Amer) 15.2 ml/min (>90) 08/03/18 06:00 Est GFR (Non-Af Amer) 12.6 ml/min 08/03/18 06:00 BUN/Creatinine Ratio 4.0 08/03/18 06:00 Glucose 154 mg/dL (70-105) H 08/03/18 06:00 POC Glucose 178 MG/DL (70 - 105) H 08/03/18 21:54 Whole Bld Lactic Acid 1.29 mmol/L (0.60-1.99) 07/12/18 20:50 Calcium 9.1 mg/dL (8.6-10.3) 08/03/18 06:00 Magnesium 1.6 mg/dL (1.9-2.7) L 07/21/18 05:00 Total Bilirubin 0.4 mg/dL (0.3-1.0) 08/01/18 06:11 AST 19 U/L (13-39) 08/01/18 06:11 ALT 9 U/L (7-52) 08/01/18 06:11 Alkaline Phosphatase 120 U/L (34-104) H 08/01/18 06:11 Creatine Kinase 20 U/L (30-223) L 07/12/18 20:50 Troponin I 0.49 ng/mL (0.01-0.05) H* 07/13/18 15:20 B-Natriuretic Peptide 515.0 pg/mL (5.0-100.0) H 07/13/18 04:00 Total Protein 4.5 gm/dL (6.0-8.3) L 08/01/18 06:11 Albumin 1.6 gm/dL (3.7-5.3) L 08/01/18 06:11 Globulin 2.9 gm/dL 08/01/18 06:11 Albumin/Globulin Ratio 0.6 (1.0-1.8) L 08/01/18 06:11 Triglycerides 53 mg/dL (<150) 07/13/18 04:00 Cholesterol 41 mg/dL (<200) 07/13/18 04:00 LDL Cholesterol Direct 11 mg/dL (75-193) L 07/13/18 04:00 HDL Cholesterol 24 mg/dL (23-92) 07/13/18 04:00 TSH 1.21 uIU/ml (0.34-5.60) 07/13/18 04:00 Urine Source S[place] 07/12/18 20:50 Urine Color YELLOW 07/12/18 20:50 Urine Clarity CLOUDY (CLEAR) H 07/12/18 20:50 Urine pH 8.5 (4.6 - 8.0) 07/12/18 20:50 Ur Specific Snyder 1.015 (1.005-1.030) 07/12/18 20:50 Urine Protein 100 mg/dL (NEGATIVE) H 07/12/18 20:50 Urine Glucose (UA) NEGATIVE mg/dL (NEGATIVE) 07/12/18 20:50 Urine Ketones NEGATIVE mg/dL (NEGATIVE) 07/12/18 20:50 Urine Blood TRACE (NEGATIVE) 07/12/18 20:50 Urine Nitrate NEGATIVE (NEGATIVE) 07/12/18 20:50 Urine Bilirubin NEGATIVE (NEGATIVE) 07/12/18 20:50 Urine Urobilinogen 0.2 E.U./dL (0.2 - 1.0) 07/12/18 20:50 Ur Leukocyte Esterase LARGE (NEGATIVE) H 07/12/18 20:50 Urine RBC 2-5 /hpf (0-5) 07/12/18 20:50 Urine WBC >100 /hpf (0-5) H 07/12/18 20:50 Ur Epithelial Cells MODERATE /lpf (FEW) 07/12/18 20:50 Urine Bacteria MANY /hpf (NONE SEEN) H 07/12/18 20:50 Amikacin Peak 35.4 ug/mL (20.0-30.0) H 07/25/18 23:55 Amikacin Trough 14.1 ug/mL (1.0-8.0) H 07/25/18 20:30 Random Amikacin 14.8 ug/ml (1.0-30.0) 07/25/18 17:00 Random Vancomycin 25.5 ug/mL (5.0-40.0) 07/24/18 05:50 Blood Type O POSITIVE 08/02/18 09:20 Antibody Screen NEGATIVE 08/02/18 09:20 Crossmatch See Detail 08/02/18 09:20 - Physical Exam Vitals and I&O: Vital Signs Temp 98.4 F 08/04/18 00:00 Pulse 116 08/04/18 00:11 Resp 16 08/04/18 00:11 BP 119/79 08/04/18 00:00 Pulse Ox 100 08/04/18 00:11 Intake & Output 08/03/18 08/03/18 08/04/18 06:59 18:59 06:59 Output Total 340 Balance -340 Weight (lbs) 106.594 kg Output: Urine 60 Stool 200 Other 80 Other: Stool Characteristics Soft Soft Formed Formed Brown Brown Weight Source Bedscale Active Medications: Current Medications Acetaminophen (Tylenol) 650 mg PO Q6H PRN PRN Reason: Mild Pain or Fever >101 Stop: 09/11/18 15:14 Acetaminophen/Hydrocodone Bitart (Spicer 5mg/325mg) 1 tab PO Q4H PRN PRN Reason: Pain (Moderate) Stop: 09/27/18 14:34 Last Admin: 08/03/18 15:30 Dose: 1 tab Albuterol/Ipratropium (Duoneb Neb) 3 ml HHN Q4HRT PRN PRN Reason: Shortness of Breath or Wheeze Stop: 09/11/18 15:14 Albuterol/Ipratropium (Duoneb Neb) 3 ml HHN Q6HRT [facility] Stop: 09/21/18 18:59 Last Admin: 08/04/18 00:11 Dose: 3 ml Ascorbic Acid (Vitamin C) 500 mg PO DAILY [facility] Stop: 09/12/18 08:59 Last Admin: 08/03/18 09:16 Dose: 500 mg Atorvastatin Calcium (Lipitor) 20 mg PO HS [facility] Stop: 09/11/18 20:59 Last Admin: 08/03/18 21:46 Dose: 20 mg [place] Oil/[place]ovan Balsam/Trypsin (Venelex) 1 appl TP DAILY [facility] Stop: 09/13/18 08:59 Last Admin: 08/03/18 17:00 Dose: 1 appl Dextrose (Glutose 40%) 18.75 gm PO PRN PRN PRN Reason: Blood Glucose less than 70 Stop: 09/11/18 04:10 Docusate Sodium (Colace) 100 mg PO BID [facility] Stop: 09/11/18 16:59 Last Admin: 08/03/18 17:56 Dose: 100 mg Epoetin Evelio (Epogen) 10,000 units SUBQ MoWeFr [facility] Stop: 09/29/18 12:44 Last Admin: 08/03/18 14:20 Dose: 10,000 units Famotidine (Pepcid) 20 mg PO DAILY [facility] Stop: 09/12/18 08:59 Last Admin: 08/03/18 09:15 Dose: 20 mg Folic Acid (Folate) 1 mg PO DAILY [facility] Stop: 09/12/18 08:59 Last Admin: 08/03/18 09:16 Dose: 1 mg Glucagon (Glucagen) 1 mg IM PRN PRN PRN Reason: Blood Glucose less than 70 Stop: 09/11/18 04:10 Heparin Sodium (Porcine) (Heparin) 5,000 units SUBQ Q12HR [facility] Stop: 09/26/18 20:59 Last Admin: 08/03/18 21:46 Dose: 5,000 units Insulin Aspart (Novolog Insulin Sliding Scale) 0 units SUBQ ACHS [facility]; Protocol Stop: 09/28/18 11:29 Last Admin: 08/03/18 22:05 Dose: 2 units Lactobacillus Rhamnosus (Culturelle 15b) 1 each PO DAILY [facility] Stop: 09/13/18 13:59 Last Admin: 08/03/18 09:14 Dose: 1 each Levothyroxine Sodium (Synthroid) 0.025 mg PO QDAC [facility] Stop: 09/12/18 07:29 Last Admin: 08/03/18 06:53 Dose: 0.025 mg Miscellaneous (Probiotic Screen) 1 ea PRN PRN PRN Reason: PROTOCOL Stop: 09/13/18 11:44 Miscellaneous (Clinical Monitoring) 1 ea DAILY PRN PRN Reason: RENAL DOSING Stop: 09/27/18 08:38 Oxcarbazepine (Trileptal) 600 mg PO BID [facility] Stop: 09/11/18 16:59 Last Admin: 08/03/18 17:55 Dose: 600 mg Risperidone (Risperdal) 2 mg PO HS [facility] Stop: 09/11/18 20:59 Last Admin: 08/03/18 21:45 Dose: 2 mg Senna (Senna) 17.2 mg PO BID [facility] Stop: 09/11/18 16:59 Last Admin: 08/03/18 17:55 Dose: 17.2 mg Sevelamer Carbonate (Renvela) 800 mg PO TIDWM [facility] Stop: 09/11/18 16:59 Last Admin: 08/03/18 17:56 Dose: 800 mg Vitamin B Complex/Vit C/Folic Acid (Vitamin B Complex W/Vitamin C) 1 tab PO DAILY [facility] Stop: 09/12/18 08:59 Last Admin: 08/03/18 09:15 Dose: 1 tab Zinc Sulfate (Zinc Sulfate) 220 mg PO DAILY [facility] Stop: 09/12/18 08:59 Last Admin: 08/03/18 09:15 Dose: 220 mg General: no acute distress, well developed, well nourished HEENT: atraumatic, normocephalic, PERRLA, EOMI, moist mucous membrane Neck: supple, no thyromegaly Cardiovascular: S1S2, regular Lungs: clear to auscultation bilaterally, clear to percussion Abdomen: soft, other (coloctomy), no tender, no distended Extremities: no cyanosis, no clubbing, no edema Neurological: awake, alert, oriented Skin: other (sacral wound) - Procedures Procedures: Procedures Procedure Code Date BYPASS DESCENDING COLON TO CUTANEOUS, OPEN APPROACH [id number] 07/12/18 EXCISION OF L LOW LEG SUBCU/FASCIA, OPEN APPROACH [id number] 07/12/18 EXCISION OF SACRUM, OPEN APPROACH [id number] 07/12/18 EXCISION OF SIGMOID COLON, OPEN APPROACH [id number] 07/12/18 RESPIRATORY VENTILATION, LESS THAN 24 CONSECUTIVE HOURS [id number] 07/12/18 Infectious Disease Assmt/Plan - Problem List Patient Problems: All Active Problems Anasarca (Acute) R60.1 Anemia (Acute) D64.9 CAD (coronary artery disease) (Acute) I25.10 CHF (congestive heart failure) (Acute) I50.9 CKD (chronic kidney disease) (Acute) N18.9 HTN (hypertension) (Acute) I10 UTI (urinary tract infection) (Acute) sacral stage 4 wound (Acute) - Assessment Assessment: 1. UTI 2. Staph CN in blood contaminant. 3. Hypoglycemia. 4. Diabetes mellitus type 1 with episodes of hypoglycemia. 5. Hypertension. 6. Anemia of chronic disease. 7. Coronary artery disease, 8. CHF.. 9. Anasarca 10. 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 11. sacral stage 4 wound. No evidence of osteimyelitis, 12. S/p Diverting colostomy. - Plan Plan: off antibiotics. wound care. Nutritional Asmnt/Malnutr-PDOC - Dietary Evaluation Malnutrition Findings (Please click <Entered> for more info): Nutritional Asmnt/Malnutrition Start: 07/13/18 13: 54 Text: Status: Complete Freq: Protocol: Document 07/13/18 13:56 MMULN (Rec: 07/13/18 14:10 [id number] NASH- [id number]) Nutritional Asmnt/Malnutrition Patient General Information Nutritional Screening Consult Diagnosis ESRD, anasarca Pertinent Medical Hx/Surgical Hx Seizure, hep C, diabetes, CAD, HTN, CVA, quadreplegia, Parkinsons, ESRD Subjective Information Consult received for "Diabetic ". Per nursing notes, patient receives hemodialysis MWF and patient is non-verbal. Patient with 2+ pitting edema. Current Diet Order/ Nutrition Support Renal diet Patient / S.O Not Indicated Pertinent Medications D50W, D5-0.45NS @50 ml/hr, Glucagon, Novolog Pertinent Labs (07/13) Na 134, BUN 48, Cr 2.9, glucose 41-137, Ca 8.2, BNP 515, albumin 2 Nutritional Hx/Data Height 1.73 m Height (Calculated Centimeters) 172.7 Current Weight (lbs) 113.852 kg Weight (Calculated Kilograms) 113.9 Weight (Calculated Grams) 623387.7 [place] Body Weight 140 % [place] Body Weight 179 Body Mass Index (BMI) 38.1 Recent Weight Change No Weight Status Morbidly Obese GI Symptoms GI Symptoms None Last BM 07/13 x 1 Difficult in: Chewing Food Allergies No Cultural/Ethnic/Confucianist Belief none indicated Usual diet at home unknown Skin Integrity/Comment: Arian 10, ulceration on sacrum, left lower leg, abrasion on L heel, scar on right leg. Current %PO Good (75-100%) Estimated Nutritional Goals BEE in Kcals: Adj wt of IBW Calories/Kcals/Kg 27-32 kcal/kg (using 76.2kg ADj wt) Kcals Calculated ~3325-3394 kcal/day Protein g/k.2-1.5 gm/kg using Adj wt Protein Calculated ~90-115 gm/day Fluid: ml Per MD due to HD Nutritional Problem 2. Problem Problem Altered nutrition related lab values related to Etiology episodes of hypoglycemia, electrolyte imbalance aeb Signs/Symptoms: Na 134, glucose 41-137, Ca 8.2 1. Problem Problem Increased nutrient needs related to Etiology hypermetabolic state, impaired skin integrity aeb Signs/Symptoms: Pt on Hemodialysis and with multiple ulcerations Intervention/Recommendation Comments 1. Continue Renal diet as tolerated by patient. No need for DM restriction at this time due to hypoglycemia. 2. Consider fluid restriction due to HD, hyponatremia and edema. 3. Consider adding Prosource 1 packet with each meal for an additional 45gm protein. Expected Outcomes/Goals Expected Outcomes/Goals Oral intake >75% of meals, weight stable or trend toward ideal body weight, nutrition related labs WNL
[2018-08-04] MEDS: Levothyroxine 0.025 Mg Tab PO SCH (08:24)
[2018-08-04] MEDS: Docusate Sodium 100 mg/10 mL UD PO SCH ×2 (08:24→16:46)
[2018-08-04] MEDS: Lactobacillus Rhamnosus GG 15 Billion CFU CAP.SPRINK PO SCH (08:24)
[2018-08-04] MEDS: Vitamin B Complex w/Vitamin C Tab PO SCH (08:25)
[2018-08-04] MEDS: INSULIN ASPART SLIDING SCALE 100 UNITS/ML UNIT SUBQ SCH ×4 (08:27→20:44)
--- NOTE | 2018-08-04 08:49 | Diagnostic Imaging Report ---
CHEST X-RAY: AP view INDICATION: CHF COMPARISON: 07/30/2018 FINDINGS: Improving congestive changes are seen with probable residual small effusions. Lower extremity Vascular catheter is seen terminating within the right atrium. IMPRESSION Improving congestive changes. No focal consolidation identified. Vascular catheter from a lower extremity approach terminating in the region of the right atrium. Please correlate clinically.
--- NOTE | 2018-08-04 11:50 | General Progress Note ---
Subjective - Review of Systems Service Date: 08/04/18 Events since last encounter: discussed with wound care nurse (José Miguel) - will need to continue wound vac post DC Objective - Results Result Diagrams: 08/03/18 06:00 08/03/18 06:00 Recent Labs: Laboratory Last Values WBC 6.3 Th/cmm (4.8-10.8) 08/03/18 06:00 RBC 3.57 Mil/cmm (3.80-5.10) L 08/03/18 06:00 Hgb 10.4 gm/dL (12-16) L D 08/03/18 06:00 Hct 31.0 % (41.0-60) L D 08/03/18 06:00 MCV 86.8 fl (81-100) 08/03/18 06:00 MCH 29.1 pg (27.0-31.0) 08/03/18 06:00 MCHC Differential 33.6 pg (28.0-36.0) 08/03/18 06:00 RDW 15.4 % (11.5-20.0) 08/03/18 06:00 Plt Count 158 Th/cmm (150-400) 08/03/18 06:00 MPV 7.2 fl 08/03/18 06:00 Add Manual Diff YES 08/02/18 06:01 Neutrophils % 54.6 % (40.0-80.0) 08/03/18 06:00 Band Neutrophils % 4 % (0-10) 08/02/18 06:01 Lymphocytes % 30.6 % (20.0-50.0) 08/03/18 06:00 Monocytes % 14.1 % (2.0-10.0) H 08/03/18 06:00 Eosinophils % 0.6 % (0.0-5.0) 08/03/18 06:00 Basophils % 0.1 % (0.0-2.0) 08/03/18 06:00 Neutrophils (Manual) 53 % (40-80) 08/02/18 06:01 Lymphocytes 33 % (20-50) 08/02/18 06:01 Monocytes 10 % (2-10) 08/02/18 06:01 Eosinophils 0 % (0-5) 08/02/18 06:01 Basophils 0 % (0-3) 08/02/18 06:01 Hypochromia 2+ 08/02/18 06:01 Platelet Estimate ADEQUATE (NORMAL) 08/02/18 06:01 PT 17.0 SECONDS (9.5-11.5) H 07/28/18 04:20 INR 1.67 (0.5-1.4) H 07/28/18 04:20 PTT (Actin FS) 43.0 SECONDS (26.0-38.0) H 07/20/18 08:08 Specimen Source Arterial 07/23/18 17:00 Sample Site LB 07/23/18 17:00 pH 7.44 (7.35-7.45) 07/23/18 17:00 pCO2 44.0 mmHg (35.0-45.0) 07/23/18 17:00 pO2 86.0 mmHg (80.0-100.0) 07/23/18 17:00 HCO3 28.9 mEq/L (20.0-26.0) H 07/23/18 17:00 Base Excess 5.1 mEq/L (-3.0-3.0) H 07/23/18 17:00 O2 Saturation 97.0 % (92.0-100.0) 07/23/18 17:00 [place] Test NA 07/23/18 17:00 Vent Rate NA 07/23/18 17:00 Inspired O2 40 07/23/18 17:00 Tidal Volume NA 07/23/18 17:00 PEEP NA 07/23/18 17:00 Pressure (ins/psv/peep) NA 07/23/18 17:00 Critical Value E.QUINTEROS 07/23/18 17:00 Sodium 135 mEq/L (136-145) L 08/03/18 06:00 Potassium 3.8 mEq/L (3.5-5.1) 08/03/18 06:00 Chloride 103 mEq/L (98-107) 08/03/18 06:00 Carbon Dioxide 24.0 mEq/L (21.0-31.0) 08/03/18 06:00 Anion Gap 11.8 (7.0-16.0) 08/03/18 06:00 BUN 16 mg/dL (7-25) 08/03/18 06:00 Creatinine 4.0 mg/dL (0.6-1.2) H 08/03/18 06:00 Est GFR ( Amer) 15.2 ml/min (>90) 08/03/18 06:00 Est GFR (Non-Af Amer) 12.6 ml/min 08/03/18 06:00 BUN/Creatinine Ratio 4.0 08/03/18 06:00 Glucose 154 mg/dL (70-105) H 08/03/18 06:00 POC Glucose 175 MG/DL (70 - 105) H 08/04/18 07:15 Whole Bld Lactic Acid 1.29 mmol/L (0.60-1.99) 07/12/18 20:50 Calcium 9.1 mg/dL (8.6-10.3) 08/03/18 06:00 Magnesium 1.6 mg/dL (1.9-2.7) L 07/21/18 05:00 Total Bilirubin 0.4 mg/dL (0.3-1.0) 08/01/18 06:11 AST 19 U/L (13-39) 08/01/18 06:11 ALT 9 U/L (7-52) 08/01/18 06:11 Alkaline Phosphatase 120 U/L (34-104) H 08/01/18 06:11 Creatine Kinase 20 U/L (30-223) L 07/12/18 20:50 Troponin I 0.49 ng/mL (0.01-0.05) H* 07/13/18 15:20 B-Natriuretic Peptide 515.0 pg/mL (5.0-100.0) H 07/13/18 04:00 Total Protein 4.5 gm/dL (6.0-8.3) L 08/01/18 06:11 Albumin 1.6 gm/dL (3.7-5.3) L 08/01/18 06:11 Globulin 2.9 gm/dL 08/01/18 06:11 Albumin/Globulin Ratio 0.6 (1.0-1.8) L 08/01/18 06:11 Triglycerides 53 mg/dL (<150) 07/13/18 04:00 Cholesterol 41 mg/dL (<200) 07/13/18 04:00 LDL Cholesterol Direct 11 mg/dL (75-193) L 07/13/18 04:00 HDL Cholesterol 24 mg/dL (23-92) 07/13/18 04:00 TSH 1.21 uIU/ml (0.34-5.60) 07/13/18 04:00 Urine Source [place] 07/12/18 20:50 Urine Color YELLOW 07/12/18 20:50 Urine Clarity CLOUDY (CLEAR) H 07/12/18 20:50 Urine pH 8.5 (4.6 - 8.0) 07/12/18 20:50 Ur Specific [place] 1.015 (1.005-1.030) 07/12/18 20:50 Urine Protein 100 mg/dL (NEGATIVE) H 07/12/18 20:50 Urine Glucose (UA) NEGATIVE mg/dL (NEGATIVE) 07/12/18 20:50 Urine Ketones NEGATIVE mg/dL (NEGATIVE) 07/12/18 20:50 Urine Blood TRACE (NEGATIVE) 07/12/18 20:50 Urine Nitrate NEGATIVE (NEGATIVE) 07/12/18 20:50 Urine Bilirubin NEGATIVE (NEGATIVE) 07/12/18 20:50 Urine Urobilinogen 0.2 E.U./dL (0.2 - 1.0) 07/12/18 20:50 Ur Leukocyte Esterase LARGE (NEGATIVE) H 07/12/18 20:50 Urine RBC 2-5 /hpf (0-5) 07/12/18 20:50 Urine WBC >100 /hpf (0-5) H 07/12/18 20:50 Ur Epithelial Cells MODERATE /lpf (FEW) 07/12/18 20:50 Urine Bacteria MANY /hpf (NONE SEEN) H 07/12/18 20:50 Amikacin Peak 35.4 ug/mL (20.0-30.0) H 07/25/18 23:55 Amikacin Trough 14.1 ug/mL (1.0-8.0) H 07/25/18 20:30 Random Amikacin 14.8 ug/ml (1.0-30.0) 07/25/18 17:00 Random Vancomycin 25.5 ug/mL (5.0-40.0) 07/24/18 05:50 Blood Type O POSITIVE 08/02/18 09:20 Antibody Screen NEGATIVE 08/02/18 09:20 Crossmatch See Detail 08/02/18 09:20 - Physical Exam Vitals and I&O: Vital Signs Temp 97.4 F 08/04/18 11:44 Pulse 100 08/04/18 11:44 Resp 19 08/04/18 11:44 BP 99/56 08/04/18 11:44 Pulse Ox 100 08/04/18 11:44 Intake & Output 08/03/18 08/04/18 08/04/18 18:59 06:59 18:59 Output Total 340 Balance -340 Weight (lbs) 106.594 kg Output: Urine 60 Stool 200 Other 80 Other: Stool Characteristics Soft Formed Brown Weight Source Bedscale Active Medications: Current Medications Acetaminophen (Tylenol) 650 mg PO Q6H PRN PRN Reason: Mild Pain or Fever >101 Stop: 09/11/18 15:14 Acetaminophen/Hydrocodone Bitart ([place] 5mg/325mg) 1 tab PO Q4H PRN PRN Reason: Pain (Moderate) Stop: 09/27/18 14:34 Last Admin: 08/03/18 15:30 Dose: 1 tab Albuterol/Ipratropium (Duoneb Neb) 3 ml HHN Q4HRT PRN PRN Reason: Shortness of Breath or Wheeze Stop: 09/11/18 15:14 Albuterol/Ipratropium (Duoneb Neb) 3 ml HHN Q6HRT [facility] Stop: 09/21/18 18:59 Last Admin: 08/04/18 07:53 Dose: 3 ml Ascorbic Acid (Vitamin C) 500 mg PO DAILY [facility] Stop: 09/12/18 08:59 Last Admin: 08/04/18 08:24 Dose: 500 mg Atorvastatin Calcium (Lipitor) 20 mg PO HS [facility] Stop: 09/11/18 20:59 Last Admin: 08/03/18 21:46 Dose: 20 mg [place] Oil/[place] Balsam/Trypsin (Venelex) 1 appl TP DAILY [facility] Stop: 09/13/18 08:59 Last Admin: 08/03/18 17:00 Dose: 1 appl Dextrose (Glutose 40%) 18.75 gm PO PRN PRN PRN Reason: Blood Glucose less than 70 Stop: 09/11/18 04:10 Docusate Sodium (Colace) 100 mg PO BID [facility] Stop: 09/11/18 16:59 Last Admin: 08/04/18 08:24 Dose: 100 mg Epoetin Evelio (Epogen) 10,000 units SUBQ MoWeFr [facility] Stop: 09/29/18 12:44 Last Admin: 08/03/18 14:20 Dose: 10,000 units Famotidine (Pepcid) 20 mg PO DAILY [facility] Stop: 09/12/18 08:59 Last Admin: 08/04/18 08:24 Dose: 20 mg Folic Acid (Folate) 1 mg PO DAILY VIKTORIA Stop: 09/12/18 08:59 Last Admin: 08/04/18 08:24 Dose: 1 mg Glucagon (Glucagen) 1 mg IM PRN PRN PRN Reason: Blood Glucose less than 70 Stop: 09/11/18 04:10 Heparin Sodium (Porcine) (Heparin) 5,000 units SUBQ Q12HR [facility] Stop: 09/26/18 20:59 Last Admin: 08/04/18 08:25 Dose: 5,000 units Insulin Aspart (Novolog Insulin Sliding Scale) 0 units SUBQ ACHS [facility]; Protocol Stop: 09/28/18 11:29 Last Admin: 08/04/18 08:27 Dose: 2 units Lactobacillus Rhamnosus (Culturelle 15b) 1 each PO DAILY VIKTORIA Stop: 09/13/18 13:59 Last Admin: 08/04/18 08:24 Dose: 1 each Levothyroxine Sodium (Synthroid) 0.025 mg PO QDAC [facility] Stop: 09/12/18 07:29 Last Admin: 08/04/18 08:24 Dose: 0.025 mg Miscellaneous (Probiotic Screen) 1 ea PRN PRN PRN Reason: PROTOCOL Stop: 09/13/18 11:44 Miscellaneous (Clinical Monitoring) 1 ea MC DAILY PRN PRN Reason: RENAL DOSING Stop: 09/27/18 08:38 Oxcarbazepine (Trileptal) 600 mg PO BID [facility] Stop: 09/11/18 16:59 Last Admin: 08/04/18 08:24 Dose: 600 mg Risperidone (Risperdal) 2 mg PO HS [facility] Stop: 09/11/18 20:59 Last Admin: 08/03/18 21:45 Dose: 2 mg Senna (Senna) 17.2 mg PO BID VIKTOR[facility] Stop: 09/11/18 16:59 Last Admin: 08/04/18 08:24 Dose: 17.2 mg Sevelamer Carbonate (Renvela) 800 mg PO TIDWM [facility] Stop: 09/11/18 16:59 Last Admin: 08/04/18 08:24 Dose: 800 mg Vitamin B Complex/Vit C/Folic Acid (Vitamin B Complex W/Vitamin C) 1 tab PO DAILY [facility] Stop: 09/12/18 08:59 Last Admin: 08/04/18 08:25 Dose: 1 tab Zinc Sulfate (Zinc Sulfate) 220 mg PO DAILY [facility] Stop: 09/12/18 08:59 Last Admin: 08/04/18 08:24 Dose: 220 mg General: Alert, Mild distress HEENT: Atraumatic, EOMI Neck: Supple, +2 carotid pulse wo bruit Cardiovascular: Regular rate, Normal S1, Normal S2 Lungs: Other (scattered rhonchi) Abdomen: Bowel sounds, Soft Extremities: Edema ((+) 2-3 edema), Other ((+) 2 bipedal edema) Neurological: Sensation intact Skin: no Rash Psych/Mental Status: Mood NL - Procedures Procedures: Procedures Procedure Code Date BYPASS DESCENDING COLON TO CUTANEOUS, OPEN APPROACH [id number] 07/12/18 EXCISION OF L LOW LEG SUBCU/FASCIA, OPEN APPROACH [id number] 07/12/18 EXCISION OF SACRUM, OPEN APPROACH [id number] 07/12/18 EXCISION OF SIGMOID COLON, OPEN APPROACH [id number] 07/12/18 RESPIRATORY VENTILATION, LESS THAN 24 CONSECUTIVE HOURS [id number] 07/12/18 Assessment/Plan - Problem List Patient Problems: All Active Problems Anasarca (Acute) R60.1 Anemia (Acute) D64.9 CAD (coronary artery disease) (Acute) I25.10 CHF (congestive heart failure) (Acute) I50.9 CKD (chronic kidney disease) (Acute) N18.9 HTN (hypertension) (Acute) I10 UTI (urinary tract infection) (Acute) sacral stage 4 wound (Acute) Nutritional Asmnt/Malnutr-PDOC - Dietary Evaluation Malnutrition Findings (Please click <Entered> for more info): Nutritional Asmnt/Malnutrition Start: 07/13/18 13: 54 Text: Status: Complete Freq: Protocol: Document 07/13/18 13:56 MMULHERN (Rec: 07/13/18 14:10 [email or web address]- [id number]) Nutritional Asmnt/Malnutrition Patient General Information Nutritional Screening Consult Diagnosis ESRD, anasarca Pertinent Medical Hx/Surgical Hx Seizure, hep C, diabetes, CAD, HTN, CVA, quadreplegia, Parkinsons, ESRD Subjective Information Consult received for "Diabetic ". Per nursing notes, patient receives hemodialysis MWF and patient is non-verbal. Patient with 2+ pitting edema. Current Diet Order/ Nutrition Support Renal diet Patient / S.O Not Indicated Pertinent Medications D50W, D5-0.45NS @50 ml/hr, Glucagon, Novolog Pertinent Labs (07/13) Na 134, BUN 48, Cr 2.9, glucose 41-137, Ca 8.2, BNP 515, albumin 2 Nutritional Hx/Data Height 1.73 m Height (Calculated Centimeters) 172.7 Current Weight (lbs) 113.852 kg Weight (Calculated Kilograms) 113.9 Weight (Calculated Grams) 508124.7 [place] Body Weight 140 % [place] Body Weight 179 Body Mass Index (BMI) 38.1 Recent Weight Change No Weight Status Morbidly Obese GI Symptoms GI Symptoms None Last BM 07/13 x 1 Difficult in: Chewing Food Allergies No Cultural/Ethnic/Lutheran Belief none indicated Usual diet at home unknown Skin Integrity/Comment: Arian 10, ulceration on sacrum, left lower leg, abrasion on L heel, scar on right leg. Current %PO Good (75-100%) Estimated Nutritional Goals BEE in Kcals: Adj wt of IBW Calories/Kcals/Kg 27-32 kcal/kg (using 76.2kg ADj wt) Kcals Calculated ~3802-0505 kcal/day Protein g/k.2-1.5 gm/kg using Adj wt Protein Calculated ~90-115 gm/day Fluid: ml Per MD due to HD Nutritional Problem 2. Problem Problem Altered nutrition related lab values related to Etiology episodes of hypoglycemia, electrolyte imbalance aeb Signs/Symptoms: Na 134, glucose 41-137, Ca 8.2 1. Problem Problem Increased nutrient needs related to Etiology hypermetabolic state, impaired skin integrity aeb Signs/Symptoms: Pt on Hemodialysis and with multiple ulcerations Intervention/Recommendation Comments 1. Continue Renal diet as tolerated by patient. No need for DM restriction at this time due to hypoglycemia. 2. Consider fluid restriction due to HD, hyponatremia and edema. 3. Consider adding Prosource 1 packet with each meal for an additional 45gm protein. Expected Outcomes/Goals Expected Outcomes/Goals Oral intake >75% of meals, weight stable or trend toward ideal body weight, nutrition related labs WNL
--- NOTE | 2018-08-04 12:29 | Infectious Disease Prog Note ---
Infectious Disease Subjective - Review of Systems Service Date: 08/04/18 Subjective: s/p Debridement of sacral wound and diverting colostomy Infectious Disease Objective - Results Result Diagrams: 08/03/18 06:00 08/03/18 06:00 Recent Labs: Laboratory Last Values WBC 6.3 Th/cmm (4.8-10.8) 08/03/18 06:00 RBC 3.57 Mil/cmm (3.80-5.10) L 08/03/18 06:00 Hgb 10.4 gm/dL (12-16) L D 08/03/18 06:00 Hct 31.0 % (41.0-60) L D 08/03/18 06:00 MCV 86.8 fl (81-100) 08/03/18 06:00 MCH 29.1 pg (27.0-31.0) 08/03/18 06:00 MCHC Differential 33.6 pg (28.0-36.0) 08/03/18 06:00 RDW 15.4 % (11.5-20.0) 08/03/18 06:00 Plt Count 158 Th/cmm (150-400) 08/03/18 06:00 MPV 7.2 fl 08/03/18 06:00 Add Manual Diff YES 08/02/18 06:01 Neutrophils % 54.6 % (40.0-80.0) 08/03/18 06:00 Band Neutrophils % 4 % (0-10) 08/02/18 06:01 Lymphocytes % 30.6 % (20.0-50.0) 08/03/18 06:00 Monocytes % 14.1 % (2.0-10.0) H 08/03/18 06:00 Eosinophils % 0.6 % (0.0-5.0) 08/03/18 06:00 Basophils % 0.1 % (0.0-2.0) 08/03/18 06:00 Neutrophils (Manual) 53 % (40-80) 08/02/18 06:01 Lymphocytes 33 % (20-50) 08/02/18 06:01 Monocytes 10 % (2-10) 08/02/18 06:01 Eosinophils 0 % (0-5) 08/02/18 06:01 Basophils 0 % (0-3) 08/02/18 06:01 Hypochromia 2+ 08/02/18 06:01 Platelet Estimate ADEQUATE (NORMAL) 08/02/18 06:01 PT 17.0 SECONDS (9.5-11.5) H 07/28/18 04:20 INR 1.67 (0.5-1.4) H 07/28/18 04:20 PTT (Actin FS) 43.0 SECONDS (26.0-38.0) H 07/20/18 08:08 Specimen Source Arterial 07/23/18 17:00 Sample Site LB 07/23/18 17:00 pH 7.44 (7.35-7.45) 07/23/18 17:00 pCO2 44.0 mmHg (35.0-45.0) 07/23/18 17:00 pO2 86.0 mmHg (80.0-100.0) 07/23/18 17:00 HCO3 28.9 mEq/L (20.0-26.0) H 07/23/18 17:00 Base Excess 5.1 mEq/L (-3.0-3.0) H 07/23/18 17:00 O2 Saturation 97.0 % (92.0-100.0) 07/23/18 17:00 [place] Test NA 07/23/18 17:00 Vent Rate NA 07/23/18 17:00 Inspired O2 40 07/23/18 17:00 Tidal Volume NA 07/23/18 17:00 PEEP NA 07/23/18 17:00 Pressure (ins/psv/peep) NA 07/23/18 17:00 Critical Value E.QUINTEROS 07/23/18 17:00 Sodium 135 mEq/L (136-145) L 08/03/18 06:00 Potassium 3.8 mEq/L (3.5-5.1) 08/03/18 06:00 Chloride 103 mEq/L (98-107) 08/03/18 06:00 Carbon Dioxide 24.0 mEq/L (21.0-31.0) 08/03/18 06:00 Anion Gap 11.8 (7.0-16.0) 08/03/18 06:00 BUN 16 mg/dL (7-25) 08/03/18 06:00 Creatinine 4.0 mg/dL (0.6-1.2) H 08/03/18 06:00 Est GFR ( Amer) 15.2 ml/min (>90) 08/03/18 06:00 Est GFR (Non-Af Amer) 12.6 ml/min 08/03/18 06:00 BUN/Creatinine Ratio 4.0 08/03/18 06:00 Glucose 154 mg/dL (70-105) H 08/03/18 06:00 POC Glucose 267 MG/DL (70 - 105) H 08/04/18 12:05 Whole Bld Lactic Acid 1.29 mmol/L (0.60-1.99) 07/12/18 20:50 Calcium 9.1 mg/dL (8.6-10.3) 08/03/18 06:00 Magnesium 1.6 mg/dL (1.9-2.7) L 07/21/18 05:00 Total Bilirubin 0.4 mg/dL (0.3-1.0) 08/01/18 06:11 AST 19 U/L (13-39) 08/01/18 06:11 ALT 9 U/L (7-52) 08/01/18 06:11 Alkaline Phosphatase 120 U/L (34-104) H 08/01/18 06:11 Creatine Kinase 20 U/L (30-223) L 07/12/18 20:50 Troponin I 0.49 ng/mL (0.01-0.05) H* 07/13/18 15:20 B-Natriuretic Peptide 515.0 pg/mL (5.0-100.0) H 07/13/18 04:00 Total Protein 4.5 gm/dL (6.0-8.3) L 08/01/18 06:11 Albumin 1.6 gm/dL (3.7-5.3) L 08/01/18 06:11 Globulin 2.9 gm/dL 08/01/18 06:11 Albumin/Globulin Ratio 0.6 (1.0-1.8) L 08/01/18 06:11 Triglycerides 53 mg/dL (<150) 07/13/18 04:00 Cholesterol 41 mg/dL (<200) 07/13/18 04:00 LDL Cholesterol Direct 11 mg/dL (75-193) L 07/13/18 04:00 HDL Cholesterol 24 mg/dL (23-92) 07/13/18 04:00 TSH 1.21 uIU/ml (0.34-5.60) 07/13/18 04:00 Urine Source [place] 07/12/18 20:50 Urine Color YELLOW 07/12/18 20:50 Urine Clarity CLOUDY (CLEAR) H 07/12/18 20:50 Urine pH 8.5 (4.6 - 8.0) 07/12/18 20:50 Ur Specific [place] 1.015 (1.005-1.030) 07/12/18 20:50 Urine Protein 100 mg/dL (NEGATIVE) H 07/12/18 20:50 Urine Glucose (UA) NEGATIVE mg/dL (NEGATIVE) 07/12/18 20:50 Urine Ketones NEGATIVE mg/dL (NEGATIVE) 07/12/18 20:50 Urine Blood TRACE (NEGATIVE) 07/12/18 20:50 Urine Nitrate NEGATIVE (NEGATIVE) 07/12/18 20:50 Urine Bilirubin NEGATIVE (NEGATIVE) 07/12/18 20:50 Urine Urobilinogen 0.2 E.U./dL (0.2 - 1.0) 07/12/18 20:50 Ur Leukocyte Esterase LARGE (NEGATIVE) H 07/12/18 20:50 Urine RBC 2-5 /hpf (0-5) 07/12/18 20:50 Urine WBC >100 /hpf (0-5) H 07/12/18 20:50 Ur Epithelial Cells MODERATE /lpf (FEW) 07/12/18 20:50 Urine Bacteria MANY /hpf (NONE SEEN) H 07/12/18 20:50 Amikacin Peak 35.4 ug/mL (20.0-30.0) H 07/25/18 23:55 Amikacin Trough 14.1 ug/mL (1.0-8.0) H 07/25/18 20:30 Random Amikacin 14.8 ug/ml (1.0-30.0) 07/25/18 17:00 Random Vancomycin 25.5 ug/mL (5.0-40.0) 07/24/18 05:50 Blood Type O POSITIVE 08/02/18 09:20 Antibody Screen NEGATIVE 08/02/18 09:20 Crossmatch See Detail 08/02/18 09:20 - Physical Exam Vitals and I&O: Vital Signs Temp 97.4 F 08/04/18 11:44 Pulse 100 08/04/18 11:44 Resp 19 08/04/18 11:44 BP 99/56 08/04/18 11:44 Pulse Ox 100 08/04/18 11:44 Intake & Output 08/03/18 08/04/18 08/04/18 18:59 06:59 18:59 Output Total 340 Balance -340 Weight (lbs) 106.594 kg Output: Urine 60 Stool 200 Other 80 Other: Stool Characteristics Soft Formed Brown Weight Source Bedscale Active Medications: Current Medications Acetaminophen (Tylenol) 650 mg PO Q6H PRN PRN Reason: Mild Pain or Fever >101 Stop: 09/11/18 15:14 Acetaminophen/Hydrocodone Bitart (Arminto 5mg/325mg) 1 tab PO Q4H PRN PRN Reason: Pain (Moderate) Stop: 09/27/18 14:34 Last Admin: 08/03/18 15:30 Dose: 1 tab Albuterol/Ipratropium (Duoneb Neb) 3 ml HHN Q4HRT PRN PRN Reason: Shortness of Breath or Wheeze Stop: 09/11/18 15:14 Albuterol/Ipratropium (Duoneb Neb) 3 ml HHN Q6HRT [facility] Stop: 09/21/18 18:59 Last Admin: 08/04/18 07:53 Dose: 3 ml Ascorbic Acid (Vitamin C) 500 mg PO DAILY [facility] Stop: 09/12/18 08:59 Last Admin: 08/04/18 08:24 Dose: 500 mg Atorvastatin Calcium (Lipitor) 20 mg PO HS [facility] Stop: 09/11/18 20:59 Last Admin: 08/03/18 21:46 Dose: 20 mg [place] Oil/[place] Balsam/Trypsin (Venelex) 1 appl TP DAILY [facility] Stop: 09/13/18 08:59 Last Admin: 08/03/18 17:00 Dose: 1 appl Dextrose (Glutose 40%) 18.75 gm PO PRN PRN PRN Reason: Blood Glucose less than 70 Stop: 09/11/18 04:10 Docusate Sodium (Colace) 100 mg PO BID [facility] Stop: 09/11/18 16:59 Last Admin: 08/04/18 08:24 Dose: 100 mg Epoetin Evelio (Epogen) 10,000 units SUBQ MoWeFr [facility] Stop: 09/29/18 12:44 Last Admin: 08/03/18 14:20 Dose: 10,000 units Famotidine (Pepcid) 20 mg PO DAILY [facility]K[place] Stop: 09/12/18 08:59 Last Admin: 08/04/18 08:24 Dose: 20 mg Folic Acid (Folate) 1 mg PO DAILY VIKTORIA Stop: 09/12/18 08:59 Last Admin: 08/04/18 08:24 Dose: 1 mg Glucagon (Glucagen) 1 mg IM PRN PRN PRN Reason: Blood Glucose less than 70 Stop: 09/11/18 04:10 Heparin Sodium (Porcine) (Heparin) 5,000 units SUBQ Q12HR VIKTORIA Stop: 09/26/18 20:59 Last Admin: 08/04/18 08:25 Dose: 5,000 units Insulin Aspart (Novolog Insulin Sliding Scale) 0 units SUBQ ACHS [facility]; Protocol Stop: 09/28/18 11:29 Last Admin: 08/04/18 08:27 Dose: 2 units Lactobacillus Rhamnosus (Culturelle 15b) 1 each PO DAILY VIKTORIA Stop: 09/13/18 13:59 Last Admin: 08/04/18 08:24 Dose: 1 each Levothyroxine Sodium (Synthroid) 0.025 mg PO QDAC VIKTORIA Stop: 09/12/18 07:29 Last Admin: 08/04/18 08:24 Dose: 0.025 mg Miscellaneous (Probiotic Screen) 1 ea MC PRN PRN PRN Reason: PROTOCOL Stop: 09/13/18 11:44 Miscellaneous (Clinical Monitoring) 1 ea MC DAILY PRN PRN Reason: RENAL DOSING Stop: 09/27/18 08:38 Oxcarbazepine (Trileptal) 600 mg PO BID [facility] Stop: 09/11/18 16:59 Last Admin: 08/04/18 08:24 Dose: 600 mg Risperidone (Risperdal) 2 mg PO HS [facility] Stop: 09/11/18 20:59 Last Admin: 08/03/18 21:45 Dose: 2 mg Senna (Senna) 17.2 mg PO BID VIKTORIA Stop: 09/11/18 16:59 Last Admin: 08/04/18 08:24 Dose: 17.2 mg Sevelamer Carbonate (Renvela) 800 mg PO TIDWM [facility] Stop: 09/11/18 16:59 Last Admin: 08/04/18 08:24 Dose: 800 mg Vitamin B Complex/Vit C/Folic Acid (Vitamin B Complex W/Vitamin C) 1 tab PO DAILY [facility] Stop: 09/12/18 08:59 Last Admin: 08/04/18 08:25 Dose: 1 tab Zinc Sulfate (Zinc Sulfate) 220 mg PO DAILY [facility] Stop: 09/12/18 08:59 Last Admin: 08/04/18 08:24 Dose: 220 mg General: no acute distress, well developed, well nourished HEENT: atraumatic, normocephalic, PERRLA Neck: supple, no thyromegaly, no lymphadenopathy Cardiovascular: S1S2, regular Lungs: clear to auscultation bilaterally, clear to percussion Abdomen: soft, no tender, no distended Extremities: no cyanosis, no clubbing, no edema Neurological: awake, alert, oriented Skin: other (sacral wound, wound vac) - Procedures Procedures: Procedures Procedure Code Date BYPASS DESCENDING COLON TO CUTANEOUS, OPEN APPROACH [id number] 07/12/18 EXCISION OF L LOW LEG SUBCU/FASCIA, OPEN APPROACH [id number] 07/12/18 EXCISION OF SACRUM, OPEN APPROACH [id number] 07/12/18 EXCISION OF SIGMOID COLON, OPEN APPROACH [id number] 07/12/18 RESPIRATORY VENTILATION, LESS THAN 24 CONSECUTIVE HOURS [id number] 07/12/18 Infectious Disease Assmt/Plan - Problem List Patient Problems: All Active Problems Anasarca (Acute) R60.1 Anemia (Acute) D64.9 CAD (coronary artery disease) (Acute) I25.10 CHF (congestive heart failure) (Acute) I50.9 CKD (chronic kidney disease) (Acute) N18.9 HTN (hypertension) (Acute) I10 UTI (urinary tract infection) (Acute) sacral stage 4 wound (Acute) - Assessment Assessment: 1. UTI treated. 2. Staph CN in blood contaminant. 3. Hypoglycemia. 4. Diabetes mellitus type 1 with episodes of hypoglycemia. 5. Hypertension. 6. Anemia of chronic disease. 7. Coronary artery disease, 8. CHF.. 9. Anasarca 10. 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 11. sacral stage 4 wound. No evidence of osteimyelitis, 12. S/p Diverting colostomy. - Plan Plan: off antibiotics. wound care. Nutritional Asmnt/Malnutr-PDOC - Dietary Evaluation Malnutrition Findings (Please click <Entered> for more info): Nutritional Asmnt/Malnutrition Start: 07/13/18 13: 54 Text: Status: Complete Freq: Protocol: Document 07/13/18 13:56 ALDAIR (Rec: 07/13/18 14:10 ALDAIR NASH- [id number]) Nutritional Asmnt/Malnutrition Patient General Information Nutritional Screening Consult Diagnosis ESRD, anasarca Pertinent Medical Hx/Surgical Hx Seizure, hep C, diabetes, CAD, HTN, CVA, quadreplegia, Parkinsons, ESRD Subjective Information Consult received for "Diabetic ". Per nursing notes, patient receives hemodialysis MWF and patient is non-verbal. Patient with 2+ pitting edema. Current Diet Order/ Nutrition Support Renal diet Patient / S.O Not Indicated Pertinent Medications D50W, D5-0.45NS @50 ml/hr, Glucagon, Novolog Pertinent Labs (07/13) Na 134, BUN 48, Cr 2.9, glucose 41-137, Ca 8.2, BNP 515, albumin 2 Nutritional Hx/Data Height 1.73 m Height (Calculated Centimeters) 172.7 Current Weight (lbs) 113.852 kg Weight (Calculated Kilograms) 113.9 Weight (Calculated Grams) 301291.7 [place] Body Weight 140 % [place] Body Weight 179 Body Mass Index (BMI) 38.1 Recent Weight Change No Weight Status Morbidly Obese GI Symptoms GI Symptoms None Last BM 07/13 x 1 Difficult in: Chewing Food Allergies No Cultural/Ethnic/Adventist Belief none indicated Usual diet at home unknown Skin Integrity/Comment: Arian 10, ulceration on sacrum, left lower leg, abrasion on L heel, scar on right leg. Current %PO Good (75-100%) Estimated Nutritional Goals BEE in Kcals: Adj wt of IBW Calories/Kcals/Kg 27-32 kcal/kg (using 76.2kg ADj wt) Kcals Calculated ~3269-5236 kcal/day Protein g/k.2-1.5 gm/kg using Adj wt Protein Calculated ~90-115 gm/day Fluid: ml Per MD due to HD Nutritional Problem 2. Problem Problem Altered nutrition related lab values related to Etiology episodes of hypoglycemia, electrolyte imbalance aeb Signs/Symptoms: Na 134, glucose 41-137, Ca 8.2 1. Problem Problem Increased nutrient needs related to Etiology hypermetabolic state, impaired skin integrity aeb Signs/Symptoms: Pt on Hemodialysis and with multiple ulcerations Intervention/Recommendation Comments 1. Continue Renal diet as tolerated by patient. No need for DM restriction at this time due to hypoglycemia. 2. Consider fluid restriction due to HD, hyponatremia and edema. 3. Consider adding Prosource 1 packet with each meal for an additional 45gm protein. Expected Outcomes/Goals Expected Outcomes/Goals Oral intake >75% of meals, weight stable or trend toward ideal body weight, nutrition related labs WNL
--- NOTE | 2018-08-04 13:49 | General Progress Note ---
Subjective - Review of Systems Service Date: 08/04/18 Subjective: alert, comfortable, on puree diet Objective - Results Result Diagrams: 08/03/18 06:00 08/03/18 06:00 Recent Labs: Laboratory Last Values WBC 6.3 Th/cmm (4.8-10.8) 08/03/18 06:00 RBC 3.57 Mil/cmm (3.80-5.10) L 08/03/18 06:00 Hgb 10.4 gm/dL (12-16) L D 08/03/18 06:00 Hct 31.0 % (41.0-60) L D 08/03/18 06:00 MCV 86.8 fl (81-100) 08/03/18 06:00 MCH 29.1 pg (27.0-31.0) 08/03/18 06:00 MCHC Differential 33.6 pg (28.0-36.0) 08/03/18 06:00 RDW 15.4 % (11.5-20.0) 08/03/18 06:00 Plt Count 158 Th/cmm (150-400) 08/03/18 06:00 MPV 7.2 fl 08/03/18 06:00 Add Manual Diff YES 08/02/18 06:01 Neutrophils % 54.6 % (40.0-80.0) 08/03/18 06:00 Band Neutrophils % 4 % (0-10) 08/02/18 06:01 Lymphocytes % 30.6 % (20.0-50.0) 08/03/18 06:00 Monocytes % 14.1 % (2.0-10.0) H 08/03/18 06:00 Eosinophils % 0.6 % (0.0-5.0) 08/03/18 06:00 Basophils % 0.1 % (0.0-2.0) 08/03/18 06:00 Neutrophils (Manual) 53 % (40-80) 08/02/18 06:01 Lymphocytes 33 % (20-50) 08/02/18 06:01 Monocytes 10 % (2-10) 08/02/18 06:01 Eosinophils 0 % (0-5) 08/02/18 06:01 Basophils 0 % (0-3) 08/02/18 06:01 Hypochromia 2+ 08/02/18 06:01 Platelet Estimate ADEQUATE (NORMAL) 08/02/18 06:01 PT 17.0 SECONDS (9.5-11.5) H 07/28/18 04:20 INR 1.67 (0.5-1.4) H 07/28/18 04:20 PTT (Actin FS) 43.0 SECONDS (26.0-38.0) H 07/20/18 08:08 Specimen Source Arterial 07/23/18 17:00 Sample Site LB 07/23/18 17:00 pH 7.44 (7.35-7.45) 07/23/18 17:00 pCO2 44.0 mmHg (35.0-45.0) 07/23/18 17:00 pO2 86.0 mmHg (80.0-100.0) 07/23/18 17:00 HCO3 28.9 mEq/L (20.0-26.0) H 07/23/18 17:00 Base Excess 5.1 mEq/L (-3.0-3.0) H 07/23/18 17:00 O2 Saturation 97.0 % (92.0-100.0) 07/23/18 17:00 [place] Test NA 07/23/18 17:00 Vent Rate NA 07/23/18 17:00 Inspired O2 40 07/23/18 17:00 Tidal Volume NA 07/23/18 17:00 PEEP NA 07/23/18 17:00 Pressure (ins/psv/peep) NA 07/23/18 17:00 Critical Value E.QUINTEROS 07/23/18 17:00 Sodium 135 mEq/L (136-145) L 08/03/18 06:00 Potassium 3.8 mEq/L (3.5-5.1) 08/03/18 06:00 Chloride 103 mEq/L (98-107) 08/03/18 06:00 Carbon Dioxide 24.0 mEq/L (21.0-31.0) 08/03/18 06:00 Anion Gap 11.8 (7.0-16.0) 08/03/18 06:00 BUN 16 mg/dL (7-25) 08/03/18 06:00 Creatinine 4.0 mg/dL (0.6-1.2) H 08/03/18 06:00 Est GFR ( Amer) 15.2 ml/min (>90) 08/03/18 06:00 Est GFR (Non-Af Amer) 12.6 ml/min 08/03/18 06:00 BUN/Creatinine Ratio 4.0 08/03/18 06:00 Glucose 154 mg/dL (70-105) H 08/03/18 06:00 POC Glucose 267 MG/DL (70 - 105) H 08/04/18 12:05 Whole Bld Lactic Acid 1.29 mmol/L (0.60-1.99) 07/12/18 20:50 Calcium 9.1 mg/dL (8.6-10.3) 08/03/18 06:00 Magnesium 1.6 mg/dL (1.9-2.7) L 07/21/18 05:00 Total Bilirubin 0.4 mg/dL (0.3-1.0) 08/01/18 06:11 AST 19 U/L (13-39) 08/01/18 06:11 ALT 9 U/L (7-52) 08/01/18 06:11 Alkaline Phosphatase 120 U/L (34-104) H 08/01/18 06:11 Creatine Kinase 20 U/L (30-223) L 07/12/18 20:50 Troponin I 0.49 ng/mL (0.01-0.05) H* 07/13/18 15:20 B-Natriuretic Peptide 515.0 pg/mL (5.0-100.0) H 07/13/18 04:00 Total Protein 4.5 gm/dL (6.0-8.3) L 08/01/18 06:11 Albumin 1.6 gm/dL (3.7-5.3) L 08/01/18 06:11 Globulin 2.9 gm/dL 08/01/18 06:11 Albumin/Globulin Ratio 0.6 (1.0-1.8) L 08/01/18 06:11 Triglycerides 53 mg/dL (<150) 07/13/18 04:00 Cholesterol 41 mg/dL (<200) 07/13/18 04:00 LDL Cholesterol Direct 11 mg/dL (75-193) L 07/13/18 04:00 HDL Cholesterol 24 mg/dL (23-92) 07/13/18 04:00 TSH 1.21 uIU/ml (0.34-5.60) 07/13/18 04:00 Urine Source [place] 07/12/18 20:50 Urine Color YELLOW 07/12/18 20:50 Urine Clarity CLOUDY (CLEAR) H 07/12/18 20:50 Urine pH 8.5 (4.6 - 8.0) 07/12/18 20:50 Ur Specific [place] 1.015 (1.005-1.030) 07/12/18 20:50 Urine Protein 100 mg/dL (NEGATIVE) H 07/12/18 20:50 Urine Glucose (UA) NEGATIVE mg/dL (NEGATIVE) 07/12/18 20:50 Urine Ketones NEGATIVE mg/dL (NEGATIVE) 07/12/18 20:50 Urine Blood TRACE (NEGATIVE) 07/12/18 20:50 Urine Nitrate NEGATIVE (NEGATIVE) 07/12/18 20:50 Urine Bilirubin NEGATIVE (NEGATIVE) 07/12/18 20:50 Urine Urobilinogen 0.2 E.U./dL (0.2 - 1.0) 07/12/18 20:50 Ur Leukocyte Esterase LARGE (NEGATIVE) H 07/12/18 20:50 Urine RBC 2-5 /hpf (0-5) 07/12/18 20:50 Urine WBC >100 /hpf (0-5) H 07/12/18 20:50 Ur Epithelial Cells MODERATE /lpf (FEW) 07/12/18 20:50 Urine Bacteria MANY /hpf (NONE SEEN) H 07/12/18 20:50 Amikacin Peak 35.4 ug/mL (20.0-30.0) H 07/25/18 23:55 Amikacin Trough 14.1 ug/mL (1.0-8.0) H 07/25/18 20:30 Random Amikacin 14.8 ug/ml (1.0-30.0) 07/25/18 17:00 Random Vancomycin 25.5 ug/mL (5.0-40.0) 07/24/18 05:50 Blood Type O POSITIVE 08/02/18 09:20 Antibody Screen NEGATIVE 08/02/18 09:20 Crossmatch See Detail 08/02/18 09:20 - Physical Exam Vitals and I&O: Vital Signs Temp 97.4 F 08/04/18 11:44 Pulse 100 08/04/18 11:44 Resp 19 08/04/18 11:44 BP 99/56 08/04/18 11:44 Pulse Ox 100 08/04/18 11:44 Intake & Output 08/03/18 08/04/18 08/04/18 18:59 06:59 18:59 Output Total 340 Balance -340 Weight (lbs) 106.594 kg Output: Urine 60 Stool 200 Other 80 Other: Stool Characteristics Soft Formed Brown Weight Source Bedscale Active Medications: Current Medications Acetaminophen (Tylenol) 650 mg PO Q6H PRN PRN Reason: Mild Pain or Fever >101 Stop: 09/11/18 15:14 Acetaminophen/Hydrocodone Bitart (Aurora 5mg/325mg) 1 tab PO Q4H PRN PRN Reason: Pain (Moderate) Stop: 09/27/18 14:34 Last Admin: 08/03/18 15:30 Dose: 1 tab Albuterol/Ipratropium (Duoneb Neb) 3 ml HHN Q4HRT PRN PRN Reason: Shortness of Breath or Wheeze Stop: 09/11/18 15:14 Albuterol/Ipratropium (Duoneb Neb) 3 ml HHN Q6HRT [facility] Stop: 09/21/18 18:59 Last Admin: 08/04/18 07:53 Dose: 3 ml Ascorbic Acid (Vitamin C) 500 mg PO DAILY [facility] Stop: 09/12/18 08:59 Last Admin: 08/04/18 08:24 Dose: 500 mg Atorvastatin Calcium (Lipitor) 20 mg PO HS [facility] Stop: 09/11/18 20:59 Last Admin: 08/03/18 21:46 Dose: 20 mg [place] Oil/[place] Balsam/Trypsin (Venelex) 1 appl TP DAILY [facility] Stop: 09/13/18 08:59 Last Admin: 08/03/18 17:00 Dose: 1 appl Dextrose (Glutose 40%) 18.75 gm PO PRN PRN PRN Reason: Blood Glucose less than 70 Stop: 09/11/18 04:10 Docusate Sodium (Colace) 100 mg PO BID [facility] Stop: 09/11/18 16:59 Last Admin: 08/04/18 08:24 Dose: 100 mg Epoetin Evelio (Epogen) 10,000 units SUBQ MoWeFr [facility] Stop: 09/29/18 12:44 Last Admin: 08/03/18 14:20 Dose: 10,000 units Famotidine (Pepcid) 20 mg PO DAILY [facility] Stop: 09/12/18 08:59 Last Admin: 08/04/18 08:24 Dose: 20 mg Folic Acid (Folate) 1 mg PO DAILY [facility] Stop: 09/12/18 08:59 Last Admin: 08/04/18 08:24 Dose: 1 mg Glucagon (Glucagen) 1 mg IM PRN PRN PRN Reason: Blood Glucose less than 70 Stop: 09/11/18 04:10 Heparin Sodium (Porcine) (Heparin) 5,000 units SUBQ Q12HR [facility] Stop: 09/26/18 20:59 Last Admin: 08/04/18 08:25 Dose: 5,000 units Insulin Aspart (Novolog Insulin Sliding Scale) 0 units SUBQ ACHS [facility]; Protocol Stop: 09/28/18 11:29 Last Admin: 08/04/18 13:08 Dose: 6 units Lactobacillus Rhamnosus (Culturelle 15b) 1 each PO DAILY [facility] Stop: 09/13/18 13:59 Last Admin: 08/04/18 08:24 Dose: 1 each Levothyroxine Sodium (Synthroid) 0.025 mg PO QDAC [facility] Stop: 09/12/18 07:29 Last Admin: 08/04/18 08:24 Dose: 0.025 mg Miscellaneous (Probiotic Screen) 1 ea MC PRN PRN PRN Reason: PROTOCOL Stop: 09/13/18 11:44 Miscellaneous (Clinical Monitoring) 1 ea MC DAILY PRN PRN Reason: RENAL DOSING Stop: 09/27/18 08:38 Oxcarbazepine (Trileptal) 600 mg PO BID [facility] Stop: 09/11/18 16:59 Last Admin: 08/04/18 08:24 Dose: 600 mg Risperidone (Risperdal) 2 mg PO HS [facility] Stop: 09/11/18 20:59 Last Admin: 08/03/18 21:45 Dose: 2 mg Senna (Senna) 17.2 mg PO BID [facility] Stop: 09/11/18 16:59 Last Admin: 08/04/18 08:24 Dose: 17.2 mg Sevelamer Carbonate (Renvela) 800 mg PO TIDWM [facility] Stop: 09/11/18 16:59 Last Admin: 08/04/18 13:08 Dose: 800 mg Vitamin B Complex/Vit C/Folic Acid (Vitamin B Complex W/Vitamin C) 1 tab PO DAILY [facility] Stop: 09/12/18 08:59 Last Admin: 08/04/18 08:25 Dose: 1 tab Zinc Sulfate (Zinc Sulfate) 220 mg PO DAILY [facility] Stop: 09/12/18 08:59 Last Admin: 08/04/18 08:24 Dose: 220 mg General: Alert, Mild distress HEENT: Atraumatic, EOMI Neck: Supple, +2 carotid pulse wo bruit Cardiovascular: Regular rate, Normal S1, Normal S2 Lungs: Other (scattered rhonchi) Abdomen: Bowel sounds, Soft Extremities: Edema ((+) 2-3 edema), Other ((+) 2 bipedal edema) Neurological: Sensation intact Skin: no Rash Psych/Mental Status: Mood NL - Procedures Procedures: Procedures Procedure Code Date BYPASS DESCENDING COLON TO CUTANEOUS, OPEN APPROACH [id number] 07/12/18 EXCISION OF L LOW LEG SUBCU/FASCIA, OPEN APPROACH [id number] 07/12/18 EXCISION OF SACRUM, OPEN APPROACH [id number] 07/12/18 EXCISION OF SIGMOID COLON, OPEN APPROACH [id number] 07/12/18 RESPIRATORY VENTILATION, LESS THAN 24 CONSECUTIVE HOURS [id number] 07/12/18 Assessment/Plan - Problem List Patient Problems: All Active Problems Anasarca (Acute) R60.1 Anemia (Acute) D64.9 CAD (coronary artery disease) (Acute) I25.10 CHF (congestive heart failure) (Acute) I50.9 CKD (chronic kidney disease) (Acute) N18.9 HTN (hypertension) (Acute) I10 UTI (urinary tract infection) (Acute) sacral stage 4 wound (Acute) - Assessment Assessment: ESRD on HD Hypothyroid Parkinson Ds. Fnc Quad Hep B,C GERD Left Calf ulcer Sacral Decub ulcer stage 4, w/ wound vacuum Cholelithiasis B/L HAP w/ effusions Peripheral edema Left SFV DVT S/P Diverting Colostomy - Plan Plan: Lab - Result Diagrams 07/14/18 05:00 07/14/18 05:00 Current Medications Acetaminophen (Tylenol) 650 mg PO Q6H PRN PRN Reason: Pain or Fever >101 Stop: 09/11/18 15:14 Acetaminophen/Hydrocodone Bitart ([place] 5mg/325mg) 1 tab PO Q6H PRN PRN Reason: Pain (Severe) Stop: 09/11/18 15:14 Albuterol/Ipratropium (Duoneb Neb) 3 ml HHN Q4HRT PRN PRN Reason: Shortness of Breath or Wheeze Stop: 09/11/18 15:14 Ascorbic Acid (Vitamin C) 500 mg PO DAILY [facility] Stop: 09/12/18 08:59 Last Admin: 07/14/18 08:27 Dose: 500 mg Atorvastatin Calcium (Lipitor) 20 mg PO HS [facility] Stop: 09/11/18 20:59 Last Admin: 07/13/18 21:05 Dose: 20 mg Dextrose (D50w) 50 ml IVP PRN PRN PRN Reason: Blood Glucose less than 70 Stop: 09/11/18 04:10 Dextrose (Glutose 40%) 18.75 gm PO PRN PRN PRN Reason: Blood Glucose less than 70 Stop: 09/11/18 04:10 Docusate Sodium (Colace) 100 mg PO BID [facility] Stop: 09/11/18 16:59 Last Admin: 07/14/18 08:27 Dose: 100 mg Famotidine (Pepcid) 20 mg PO DAILY [facility] Stop: 09/12/18 08:59 Last Admin: 07/14/18 08:27 Dose: 20 mg Folic Acid (Folate) 1 mg PO DAILY [facility] Stop: 09/12/18 08:59 Last Admin: 07/14/18 08:27 Dose: 1 mg Glucagon (Glucagen) 1 mg IM PRN PRN PRN Reason: Blood Glucose less than 70 Stop: 09/11/18 04:10 Piperacillin Sod/Tazobactam (Sod 2.25 gm/ Sodium Chloride) 50 mls @ 100 mls/hr IV Q6H [facility] Stop: 09/11/18 05:59 Last Admin: 07/14/18 06:05 Dose: Not Given Dextrose/Sodium Chloride (D5-0.45ns) 1,000 mls @ 50 mls/hr IV .Q20H [facility] Stop: 09/11/18 02:29 Last Admin: 07/13/18 04:03 Dose: 50 mls/hr Insulin Aspart (Novolog Insulin Sliding Scale) 0 units SUBQ Q6HR [facility]; Protocol Stop: 09/11/18 05:59 Last Admin: 07/14/18 06:05 Dose: Not Given Levothyroxine Sodium (Synthroid) 0.025 mg PO QDAC [facility] Stop: 09/12/18 07:29 Last Admin: 07/14/18 06:35 Dose: 0.025 mg Miscellaneous (Vancomycin Iv Per Pharmacy) 1 ea MC PRN PRN PRN Reason: PROTOCOL Stop: 09/10/18 23:40 Oxcarbazepine (Trileptal) 600 mg PO BID [facility] Stop: 09/11/18 16:59 Last Admin: 07/14/18 08:27 Dose: 600 mg Risperidone (Risperdal) 2 mg PO HS [facility] Stop: 09/11/18 20:59 Last Admin: 07/13/18 21:05 Dose: 2 mg Senna (Senna) 17.2 mg PO BID [facility] Stop: 09/11/18 16:59 Last Admin: 07/14/18 08:27 Dose: 17.2 mg Sevelamer Carbonate (Renvela) 800 mg PO TIDWM [facility] Stop: 09/11/18 16:59 Last Admin: 07/14/18 08:27 Dose: 800 mg Temazepam (Restoril) 15 mg PO HS PRN; Protocol PRN Reason: Insomnia Stop: 09/11/18 15:14 Vitamin B Complex/Vit C/Folic Acid (Vitamin B Complex W/Vitamin C) 1 tab PO DAILY [facility] Stop: 09/12/18 08:59 Last Admin: 07/14/18 08:27 Dose: 1 tab Zinc Sulfate (Zinc Sulfate) 220 mg PO DAILY [facility] Stop: 09/12/18 08:59 Last Admin: 07/14/18 08:27 Dose: 220 m Lab - Result Diagrams 08/03/18 06:00 08/03/18 06:00 continue wound care Pt. had diverting colostomy CXR much improved schedule for HD in am started on Puree diet Hgb/Hct improved to 10.4/31 after transfusion albumin for BP support Nutritional Asmnt/Malnutr-PDOC - Dietary Evaluation Malnutrition Findings (Please click <Entered> for more info): Nutritional Asmnt/Malnutrition Start: 07/13/18 13: 54 Text: Status: Complete Freq: Protocol: Document 07/13/18 13:56 [email or web address] (Rec: 07/13/18 14:10 HUNTERMac [id number]) Nutritional Asmnt/Malnutrition Patient General Information Nutritional Screening Consult Diagnosis ESRD, anasarca Pertinent Medical Hx/Surgical Hx Seizure, hep C, diabetes, CAD, HTN, CVA, quadreplegia, Parkinsons, ESRD Subjective Information Consult received for "Diabetic ". Per nursing notes, patient receives hemodialysis MWF and patient is non-verbal. Patient with 2+ pitting edema. Current Diet Order/ Nutrition Support Renal diet Patient / S.O Not Indicated Pertinent Medications D50W, D5-0.45NS @50 ml/hr, Glucagon, Novolog Pertinent Labs (07/13) Na 134, BUN 48, Cr 2.9, glucose 41-137, Ca 8.2, BNP 515, albumin 2 Nutritional Hx/Data Height 1.73 m Height (Calculated Centimeters) 172.7 Current Weight (lbs) 113.852 kg Weight (Calculated Kilograms) 113.9 Weight (Calculated Grams) 291412.7 [place] Body Weight 140 % [place] Body Weight 179 Body Mass Index (BMI) 38.1 Recent Weight Change No Weight Status Morbidly Obese GI Symptoms GI Symptoms None Last BM 07/13 x 1 Difficult in: Chewing Food Allergies No Cultural/Ethnic/Mu-Ism Belief none indicated Usual diet at home unknown Skin Integrity/Comment: Arian 10, ulceration on sacrum, left lower leg, abrasion on L heel, scar on right leg. Current %PO Good (75-100%) Estimated Nutritional Goals BEE in Kcals: Adj wt of IBW Calories/Kcals/Kg 27-32 kcal/kg (using 76.2kg ADj wt) Kcals Calculated ~1621-2324 kcal/day Protein g/k.2-1.5 gm/kg using Adj wt Protein Calculated ~90-115 gm/day Fluid: ml Per MD due to HD Nutritional Problem 2. Problem Problem Altered nutrition related lab values related to Etiology episodes of hypoglycemia, electrolyte imbalance aeb Signs/Symptoms: Na 134, glucose 41-137, Ca 8.2 1. Problem Problem Increased nutrient needs related to Etiology hypermetabolic state, impaired skin integrity aeb Signs/Symptoms: Pt on Hemodialysis and with multiple ulcerations Intervention/Recommendation Comments 1. Continue Renal diet as tolerated by patient. No need for DM restriction at this time due to hypoglycemia. 2. Consider fluid restriction due to HD, hyponatremia and edema. 3. Consider adding Prosource 1 packet with each meal for an additional 45gm protein. Expected Outcomes/Goals Expected Outcomes/Goals Oral intake >75% of meals, weight stable or trend toward ideal body weight, nutrition related labs WNL
[2018-08-04] MEDS: Venelex 60gm Tube TP SCH (16:47)
[2018-08-04] MEDS: Atorvastatin Calcium 10 MG TAB PO SCH (20:38)
[2018-08-04] MEDS: Hydrocodone/APAP 5mg/325mg Tab PO PRN (20:39)
[2018-08-05] MEDS: Albuterol/Ipratropium Neb 3 ML AERS HHN SCH ×4 (00:37→18:56)
[2018-08-05] MEDS: Hydrocodone/APAP 5mg/325mg Tab PO PRN ×2 (05:24→11:59)
[2018-08-05 06:34] LABS: % BASOPHILS 0.1 % (0.0-2.0); % LYMPHOCYTES 39.6 % (20.0-50.0); % MONOCYTES 11.2 % (2.0-10.0); % NEUTROPHILS 48.1 % (40.0-80.0); EOSINOPHILE ABSOLUTE 0.1 Th/cmm (0.1-0.4); HEMATOCRIT 30.4 % (41.0-60); HEMOGLOBIN 10.1 gm/dL (12-16); LYMPHOCYTE ABSOLUTE 2.7 Th/cmm (1.5-3.0); MEAN CELL VOLUME 87.2 fl (81-100); MEAN CORPUSCULAR HGB CONC 33.2 pg (28.0-36.0); MEAN PLATELET VOLUME 7.3 fl; MONOCYTE ABSOLUTE 0.8 Th/cmm (0.3-1.0); NEUTROPHILE ABSOLUTE 3.2 Th/cmm (1.8-8.0); PLATELET COUNT 153 Th/cmm (150-400); RED BLOOD COUNT 3.49 Mil/cmm (3.80-5.10); RED CELL DISTRIBUTION WIDTH 15.6 % (11.5-20.0); WHITE BLOOD COUNT 6.8 Th/cmm (4.8-10.8)
[2018-08-05] MEDS: INSULIN ASPART SLIDING SCALE 100 UNITS/ML UNIT SUBQ SCH ×4 (06:46→21:06)
[2018-08-05] MEDS: Levothyroxine 0.025 Mg Tab PO SCH (06:47)
[2018-08-05 06:52] LABS: ANION GAP 10.8 (7.0-16.0); CALCIUM SERUM 8.9 mg/dL (8.6-10.3); CARBON DIOXIDE 26.1 mEq/L (21.0-31.0); CREATININE - SERUM 3.8 mg/dL (0.6-1.2); GFR AFRICAN-AMERICAN 16.2 ml/min (>90); GFR NON AFRICAN-AMERICAN 13.4 ml/min; POTASSIUM SERUM 3.9 mEq/L (3.5-5.1)
[2018-08-05] MEDS: Docusate Sodium 100 mg/10 mL UD PO SCH ×2 (08:32→17:25)
[2018-08-05] MEDS: Lactobacillus Rhamnosus GG 15 Billion CFU CAP.SPRINK PO SCH (08:32)
[2018-08-05] MEDS: Vitamin B Complex w/Vitamin C Tab PO SCH (08:32)
[2018-08-05] MEDS: Venelex 60gm Tube TP SCH (08:36)
--- NOTE | 2018-08-05 11:13 | Infectious Disease Prog Note ---
Infectious Disease Subjective - Review of Systems Service Date: 08/05/18 Subjective: s/p Debridement of sacral wound and diverting colostomy Infectious Disease Objective - Results Result Diagrams: 08/05/18 05:35 08/05/18 05:35 Recent Labs: Laboratory Last Values WBC 6.8 Th/cmm (4.8-10.8) 08/05/18 05:35 RBC 3.49 Mil/cmm (3.80-5.10) L 08/05/18 05:35 Hgb 10.1 gm/dL (12-16) L 08/05/18 05:35 Hct 30.4 % (41.0-60) L 08/05/18 05:35 MCV 87.2 fl (81-100) 08/05/18 05:35 MCH 29.0 pg (27.0-31.0) 08/05/18 05:35 MCHC Differential 33.2 pg (28.0-36.0) 08/05/18 05:35 RDW 15.6 % (11.5-20.0) 08/05/18 05:35 Plt Count 153 Th/cmm (150-400) 08/05/18 05:35 MPV 7.3 fl 08/05/18 05:35 Add Manual Diff YES 08/02/18 06:01 Neutrophils % 48.1 % (40.0-80.0) 08/05/18 05:35 Band Neutrophils % 4 % (0-10) 08/02/18 06:01 Lymphocytes % 39.6 % (20.0-50.0) 08/05/18 05:35 Monocytes % 11.2 % (2.0-10.0) H 08/05/18 05:35 Eosinophils % 1.0 % (0.0-5.0) 08/05/18 05:35 Basophils % 0.1 % (0.0-2.0) 08/05/18 05:35 Neutrophils (Manual) 53 % (40-80) 08/02/18 06:01 Lymphocytes 33 % (20-50) 08/02/18 06:01 Monocytes 10 % (2-10) 08/02/18 06:01 Eosinophils 0 % (0-5) 08/02/18 06:01 Basophils 0 % (0-3) 08/02/18 06:01 Hypochromia 2+ 09/23/18 06:01 Platelet Estimate ADEQUATE (NORMAL) 08/02/18 06:01 PT 17.0 SECONDS (9.5-11.5) H 07/28/18 04:20 INR 1.67 (0.5-1.4) H 07/28/18 04:20 PTT (Actin FS) 43.0 SECONDS (26.0-38.0) H 07/20/18 08:08 Specimen Source Arterial 07/23/18 17:00 Sample Site LB 07/23/18 17:00 pH 7.44 (7.35-7.45) 07/23/18 17:00 pCO2 44.0 mmHg (35.0-45.0) 07/23/18 17:00 pO2 86.0 mmHg (80.0-100.0) 07/23/18 17:00 HCO3 28.9 mEq/L (20.0-26.0) H 07/23/18 17:00 Base Excess 5.1 mEq/L (-3.0-3.0) H 07/23/18 17:00 O2 Saturation 97.0 % (92.0-100.0) 07/23/18 17:00 [place] Test NA 07/23/18 17:00 Vent Rate NA 07/23/18 17:00 Inspired O2 40 07/23/18 17:00 Tidal Volume NA 07/23/18 17:00 PEEP NA 07/23/18 17:00 Pressure (ins/psv/peep) NA 07/23/18 17:00 Critical Value E.QUINTEROS 07/23/18 17:00 Sodium 135 mEq/L (136-145) L 08/05/18 05:35 Potassium 3.9 mEq/L (3.5-5.1) 08/05/18 05:35 Chloride 102 mEq/L (98-107) 08/05/18 05:35 Carbon Dioxide 26.1 mEq/L (21.0-31.0) 08/05/18 05:35 Anion Gap 10.8 (7.0-16.0) 08/05/18 05:35 BUN 15 mg/dL (7-25) 08/05/18 05:35 Creatinine 3.8 mg/dL (0.6-1.2) H 08/05/18 05:35 Est GFR ( Amer) 16.2 ml/min (>90) 08/05/18 05:35 Est GFR (Non-Af Amer) 13.4 ml/min 08/05/18 05:35 BUN/Creatinine Ratio 3.9 08/05/18 05:35 Glucose 142 mg/dL (70-105) H 08/05/18 05:35 POC Glucose 206 MG/DL (70 - 105) H 08/04/18 16:41 Whole Bld Lactic Acid 1.29 mmol/L (0.60-1.99) 07/12/18 20:50 Calcium 8.9 mg/dL (8.6-10.3) 08/05/18 05:35 Magnesium 1.6 mg/dL (1.9-2.7) L 07/21/18 05:00 Total Bilirubin 0.4 mg/dL (0.3-1.0) 08/01/18 06:11 AST 19 U/L (13-39) 08/01/18 06:11 ALT 9 U/L (7-52) 08/01/18 06:11 Alkaline Phosphatase 120 U/L (34-104) H 08/01/18 06:11 Creatine Kinase 20 U/L (30-223) L 07/12/18 20:50 Troponin I 0.49 ng/mL (0.01-0.05) H* 07/13/18 15:20 B-Natriuretic Peptide 370.0 pg/mL (5.0-100.0) H 08/05/18 05:35 Total Protein 4.5 gm/dL (6.0-8.3) L 08/01/18 06:11 Albumin 1.6 gm/dL (3.7-5.3) L 08/01/18 06:11 Globulin 2.9 gm/dL 08/01/18 06:11 Albumin/Globulin Ratio 0.6 (1.0-1.8) L 08/01/18 06:11 Triglycerides 53 mg/dL (<150) 07/13/18 04:00 Cholesterol 41 mg/dL (<200) 07/13/18 04:00 LDL Cholesterol Direct 11 mg/dL (75-193) L 07/13/18 04:00 HDL Cholesterol 24 mg/dL (23-92) 07/13/18 04:00 TSH 1.21 uIU/ml (0.34-5.60) 07/13/18 04:00 Urine Source [place] 07/12/18 20:50 Urine Color YELLOW 07/12/18 20:50 Urine Clarity CLOUDY (CLEAR) H 07/12/18 20:50 Urine pH 8.5 (4.6 - 8.0) 07/12/18 20:50 Ur Specific [place] 1.015 (1.005-1.030) 07/12/18 20:50 Urine Protein 100 mg/dL (NEGATIVE) H 07/12/18 20:50 Urine Glucose (UA) NEGATIVE mg/dL (NEGATIVE) 07/12/18 20:50 Urine Ketones NEGATIVE mg/dL (NEGATIVE) 07/12/18 20:50 Urine Blood TRACE (NEGATIVE) 07/12/18 20:50 Urine Nitrate NEGATIVE (NEGATIVE) 07/12/18 20:50 Urine Bilirubin NEGATIVE (NEGATIVE) 07/12/18 20:50 Urine Urobilinogen 0.2 E.U./dL (0.2 - 1.0) 07/12/18 20:50 Ur Leukocyte Esterase LARGE (NEGATIVE) H 07/12/18 20:50 Urine RBC 2-5 /hpf (0-5) 07/12/18 20:50 Urine WBC >100 /hpf (0-5) H 07/12/18 20:50 Ur Epithelial Cells MODERATE /lpf (FEW) 07/12/18 20:50 Urine Bacteria MANY /hpf (NONE SEEN) H 07/12/18 20:50 Amikacin Peak 35.4 ug/mL (20.0-30.0) H 07/25/18 23:55 Amikacin Trough 14.1 ug/mL (1.0-8.0) H 07/25/18 20:30 Random Amikacin 14.8 ug/ml (1.0-30.0) 07/25/18 17:00 Random Vancomycin 25.5 ug/mL (5.0-40.0) 07/24/18 05:50 Blood Type O POSITIVE 08/02/18 09:20 Antibody Screen NEGATIVE 08/02/18 09:20 Crossmatch See Detail 08/02/18 09:20 - Physical Exam Vitals and I&O: Vital Signs Temp 96.8 F 08/05/18 07:39 Pulse 72 08/05/18 07:39 Resp 18 08/05/18 07:39 BP 96/32 08/05/18 07:39 Pulse Ox 98 08/05/18 07:39 Intake & Output 08/04/18 08/05/18 08/05/18 18:59 06:59 18:59 Intake Total 450 Output Total 170 Balance 280 Weight (lbs) 106.594 kg Intake: Oral 450 Output: Drainage 120 Sacrum 120 Urine 50 Other: # Bowel Movements 0 Stool Characteristics Soft Formed Weight Source Bedscale Active Medications: Current Medications Acetaminophen (Tylenol) 650 mg PO Q6H PRN PRN Reason: Mild Pain or Fever >101 Stop: 09/11/18 15:14 Last Admin: 08/05/18 08:31 Dose: 650 mg Acetaminophen/Hydrocodone Bitart ([place] 5mg/325mg) 1 tab PO Q4H PRN PRN Reason: Pain (Moderate) Stop: 09/27/18 14:34 Last Admin: 08/05/18 05:24 Dose: 1 tab Albuterol/Ipratropium (Duoneb Neb) 3 ml HHN Q4HRT PRN PRN Reason: Shortness of Breath or Wheeze Stop: 09/11/18 15:14 Albuterol/Ipratropium (Duoneb Neb) 3 ml HHN Q6HRT [facility] Stop: 09/21/18 18:59 Last Admin: 08/05/18 07:06 Dose: 3 ml Ascorbic Acid (Vitamin C) 500 mg PO DAILY [facility] Stop: 09/12/18 08:59 Last Admin: 08/05/18 08:32 Dose: 500 mg Atorvastatin Calcium (Lipitor) 20 mg PO HS [facility] Stop: 09/11/18 20:59 Last Admin: 08/04/18 20:38 Dose: 20 mg [place] Oil/[place] Balsam/Trypsin (Venelex) 1 appl TP DAILY [facility] Stop: 09/13/18 08:59 Last Admin: 08/05/18 08:36 Dose: 1 appl Dextrose (Glutose 40%) 18.75 gm PO PRN PRN PRN Reason: Blood Glucose less than 70 Stop: 09/11/18 04:10 Docusate Sodium (Colace) 100 mg PO BID [facility] Stop: 09/11/18 16:59 Last Admin: 08/05/18 08:32 Dose: 100 mg Epoetin Evelio (Epogen) 10,000 units SUBQ MoWeFr [facility] Stop: 09/29/18 12:44 Last Admin: 08/03/18 14:20 Dose: 10,000 units Famotidine (Pepcid) 20 mg PO DAILY [facility] Stop: 09/12/18 08:59 Last Admin: 08/05/18 08:32 Dose: 20 mg Folic Acid (Folate) 1 mg PO DAILY [facility] Stop: 09/12/18 08:59 Last Admin: 08/05/18 08:32 Dose: 1 mg Glucagon (Glucagen) 1 mg IM PRN PRN PRN Reason: Blood Glucose less than 70 Stop: 09/11/18 04:10 Heparin Sodium (Porcine) (Heparin) 5,000 units SUBQ Q12HR [facility] Stop: 09/26/18 20:59 Last Admin: 08/05/18 08:33 Dose: 5,000 units Insulin Aspart (Novolog Insulin Sliding Scale) 0 units SUBQ ACHS [facility]; Protocol Stop: 09/28/18 11:29 Last Admin: 08/05/18 06:46 Dose: Not Given Lactobacillus Rhamnosus (Culturelle 15b) 1 each PO DAILY [facility] Stop: 09/13/18 13:59 Last Admin: 08/05/18 08:32 Dose: 1 each Levothyroxine Sodium (Synthroid) 0.025 mg PO QDAC [facility] Stop: 09/12/18 07:29 Last Admin: 08/05/18 06:47 Dose: 0.025 mg Miscellaneous (Probiotic Screen) 1 ea MC PRN PRN PRN Reason: PROTOCOL Stop: 09/13/18 11:44 Miscellaneous (Clinical Monitoring) 1 ea MC DAILY PRN PRN Reason: RENAL DOSING Stop: 09/27/18 08:38 Oxcarbazepine (Trileptal) 600 mg PO BID [facility] Stop: 09/11/18 16:59 Last Admin: 08/05/18 08:32 Dose: 600 mg Risperidone (Risperdal) 2 mg PO HS [facility] Stop: 09/11/18 20:59 Last Admin: 08/04/18 20:39 Dose: 2 mg Senna (Senna) 17.2 mg PO BID [facility] Stop: 09/11/18 16:59 Last Admin: 08/05/18 08:32 Dose: 17.2 mg Sevelamer Carbonate (Renvela) 800 mg PO TIDWM [facility] Stop: 09/11/18 16:59 Last Admin: 08/05/18 08:32 Dose: 800 mg Vitamin B Complex/Vit C/Folic Acid (Vitamin B Complex W/Vitamin C) 1 tab PO DAILY [facility] Stop: 09/12/18 08:59 Last Admin: 08/05/18 08:32 Dose: 1 tab Zinc Sulfate (Zinc Sulfate) 220 mg PO DAILY [facility] Stop: 09/12/18 08:59 Last Admin: 08/05/18 08:32 Dose: 220 mg General: no acute distress, well developed HEENT: atraumatic, normocephalic, PERRLA, EOMI Neck: supple, no thyromegaly Cardiovascular: S1S2, regular Lungs: clear to auscultation bilaterally, clear to percussion Abdomen: soft, no tender, no mass Extremities: no cyanosis, no clubbing, no edema Neurological: awake, alert, oriented Skin: intact - Procedures Procedures: Procedures Procedure Code Date BYPASS DESCENDING COLON TO CUTANEOUS, OPEN APPROACH [id number] 07/12/18 EXCISION OF L LOW LEG SUBCU/FASCIA, OPEN APPROACH [id number] 07/12/18 EXCISION OF SACRUM, OPEN APPROACH [id number] 07/12/18 EXCISION OF SIGMOID COLON, OPEN APPROACH [id number] 07/12/18 RESPIRATORY VENTILATION, LESS THAN 24 CONSECUTIVE HOURS [id number] 07/12/18 Infectious Disease Assmt/Plan - Problem List Patient Problems: All Active Problems Anasarca (Acute) R60.1 Anemia (Acute) D64.9 CAD (coronary artery disease) (Acute) I25.10 CHF (congestive heart failure) (Acute) I50.9 CKD (chronic kidney disease) (Acute) N18.9 HTN (hypertension) (Acute) I10 UTI (urinary tract infection) (Acute) sacral stage 4 wound (Acute) - Assessment Assessment: 1. UTI treated. 2. Staph CN in blood contaminant. 3. Hypoglycemia. 4. Diabetes mellitus type 1 with episodes of hypoglycemia. 5. Hypertension. 6. Anemia of chronic disease. 7. Coronary artery disease, 8. CHF.. 9. Anasarca 10. 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 11. sacral stage 4 wound. No evidence of osteimyelitis, 12. S/p Diverting colostomy. - Plan Plan: off antibiotics. wound care. Nutritional Asmnt/Malnutr-PDOC - Dietary Evaluation Malnutrition Findings (Please click <Entered> for more info): Nutritional Asmnt/Malnutrition Start: 07/13/18 13: 54 Text: Status: Complete Freq: Protocol: Document 07/13/18 13:56 MMULN (Rec: 07/13/18 14:10 [id number] NASH- [id number]) Nutritional Asmnt/Malnutrition Patient General Information Nutritional Screening Consult Diagnosis ESRD, anasarca Pertinent Medical Hx/Surgical Hx Seizure, hep C, diabetes, CAD, HTN, CVA, quadreplegia, Parkinsons, ESRD Subjective Information Consult received for "Diabetic ". Per nursing notes, patient receives hemodialysis MWF and patient is non-verbal. Patient with 2+ pitting edema. Current Diet Order/ Nutrition Support Renal diet Patient / S.O Not Indicated Pertinent Medications D50W, D5-0.45NS @50 ml/hr, Glucagon, Novolog Pertinent Labs (07/13) Na 134, BUN 48, Cr 2.9, glucose 41-137, Ca 8.2, BNP 515, albumin 2 Nutritional Hx/Data Height 1.73 m Height (Calculated Centimeters) 172.7 Current Weight (lbs) 113.852 kg Weight (Calculated Kilograms) 113.9 Weight (Calculated Grams) 141356.7 [place] Body Weight 140 % [place] Body Weight 179 Body Mass Index (BMI) 38.1 Recent Weight Change No Weight Status Morbidly Obese GI Symptoms GI Symptoms None Last BM 07/13 x 1 Difficult in: Chewing Food Allergies No Cultural/Ethnic/P[employer]al Belief none indicated Usual diet at home unknown Skin Integrity/Comment: Arian 10, ulceration on sacrum, left lower leg, abrasion on L heel, scar on right leg. Current %PO Good (75-100%) Estimated Nutritional Goals BEE in Kcals: Adj wt of IBW Calories/Kcals/Kg 27-32 kcal/kg (using 76.2kg ADj wt) Kcals Calculated ~7585-3572 kcal/day Protein g/k.2-1.5 gm/kg using Adj wt Protein Calculated ~90-115 gm/day Fluid: ml Per MD due to HD Nutritional Problem 2. Problem Problem Altered nutrition related lab values related to Etiology episodes of hypoglycemia, electrolyte imbalance aeb Signs/Symptoms: Na 134, glucose 41-137, Ca 8.2 1. Problem Problem Increased nutrient needs related to Etiology hypermetabolic state, impaired skin integrity aeb Signs/Symptoms: Pt on Hemodialysis and with multiple ulcerations Intervention/Recommendation Comments 1. Continue Renal diet as tolerated by patient. No need for DM restriction at this time due to hypoglycemia. 2. Consider fluid restriction due to HD, hyponatremia and edema. 3. Consider adding Prosource 1 packet with each meal for an additional 45gm protein. Expected Outcomes/Goals Expected Outcomes/Goals Oral intake >75% of meals, weight stable or trend toward ideal body weight, nutrition related labs WNL
[2018-08-05] MEDS: Epoetin Alfa 20000 Units/mL Vial SUBQ SCH (12:33)
--- NOTE | 2018-08-05 13:53 | General Progress Note ---
Subjective - Review of Systems Service Date: 08/05/18 Subjective: alert, comfortable Objective - Results Result Diagrams: 08/05/18 05:35 08/05/18 05:35 Recent Labs: Laboratory Last Values WBC 6.8 Th/cmm (4.8-10.8) 08/05/18 05:35 RBC 3.49 Mil/cmm (3.80-5.10) L 08/05/18 05:35 Hgb 10.1 gm/dL (12-16) L 08/05/18 05:35 Hct 30.4 % (41.0-60) L 08/05/18 05:35 MCV 87.2 fl (81-100) 08/05/18 05:35 MCH 29.0 pg (27.0-31.0) 08/05/18 05:35 MCHC Differential 33.2 pg (28.0-36.0) 08/05/18 05:35 RDW 15.6 % (11.5-20.0) 08/05/18 05:35 Plt Count 153 Th/cmm (150-400) 08/05/18 05:35 MPV 7.3 fl 08/05/18 05:35 Add Manual Diff YES 08/02/18 06:01 Neutrophils % 48.1 % (40.0-80.0) 08/05/18 05:35 Band Neutrophils % 4 % (0-10) 08/02/18 06:01 Lymphocytes % 39.6 % (20.0-50.0) 08/05/18 05:35 Monocytes % 11.2 % (2.0-10.0) H 08/05/18 05:35 Eosinophils % 1.0 % (0.0-5.0) 08/05/18 05:35 Basophils % 0.1 % (0.0-2.0) 08/05/18 05:35 Neutrophils (Manual) 53 % (40-80) 08/02/18 06:01 Lymphocytes 33 % (20-50) 08/02/18 06:01 Monocytes 10 % (2-10) 08/02/18 06:01 Eosinophils 0 % (0-5) 08/02/18 06:01 Basophils 0 % (0-3) 08/02/18 06:01 Hypochromia 2+ 08/02/18 06:01 Platelet Estimate ADEQUATE (NORMAL) 08/02/18 06:01 PT 17.0 SECONDS (9.5-11.5) H 07/28/18 04:20 INR 1.67 (0.5-1.4) H 07/28/18 04:20 PTT (Actin FS) 43.0 SECONDS (26.0-38.0) H 07/20/18 08:08 Specimen Source Arterial 07/23/18 17:00 Sample Site LB 07/23/18 17:00 pH 7.44 (7.35-7.45) 07/23/18 17:00 pCO2 44.0 mmHg (35.0-45.0) 07/23/18 17:00 pO2 86.0 mmHg (80.0-100.0) 07/23/18 17:00 HCO3 28.9 mEq/L (20.0-26.0) H 07/23/18 17:00 Base Excess 5.1 mEq/L (-3.0-3.0) H 07/23/18 17:00 O2 Saturation 97.0 % (92.0-100.0) 07/23/18 17:00 [place] Test NA 07/23/18 17:00 Vent Rate NA 07/23/18 17:00 Inspired O2 40 07/23/18 17:00 Tidal Volume NA 07/23/18 17:00 PEEP NA 07/23/18 17:00 Pressure (ins/psv/peep) NA 07/23/18 17:00 Critical Value E.QUINTEROS 07/23/18 17:00 Sodium 135 mEq/L (136-145) L 08/05/18 05:35 Potassium 3.9 mEq/L (3.5-5.1) 08/05/18 05:35 Chloride 102 mEq/L (98-107) 08/05/18 05:35 Carbon Dioxide 26.1 mEq/L (21.0-31.0) 08/05/18 05:35 Anion Gap 10.8 (7.0-16.0) 08/05/18 05:35 BUN 15 mg/dL (7-25) 08/05/18 05:35 Creatinine 3.8 mg/dL (0.6-1.2) H 08/05/18 05:35 Est GFR ( Amer) 16.2 ml/min (>90) 08/05/18 05:35 Est GFR (Non-Af Amer) 13.4 ml/min 08/05/18 05:35 BUN/Creatinine Ratio 3.9 08/05/18 05:35 Glucose 142 mg/dL (70-105) H 08/05/18 05:35 POC Glucose 199 MG/DL (70 - 105) H 08/05/18 11:57 Whole Bld Lactic Acid 1.29 mmol/L (0.60-1.99) 07/12/18 20:50 Calcium 8.9 mg/dL (8.6-10.3) 08/05/18 05:35 Magnesium 1.6 mg/dL (1.9-2.7) L 07/21/18 05:00 Total Bilirubin 0.4 mg/dL (0.3-1.0) 08/01/18 06:11 AST 19 U/L (13-39) 08/01/18 06:11 ALT 9 U/L (7-52) 08/01/18 06:11 Alkaline Phosphatase 120 U/L (34-104) H 08/01/18 06:11 Creatine Kinase 20 U/L (30-223) L 07/12/18 20:50 Troponin I 0.49 ng/mL (0.01-0.05) H* 07/13/18 15:20 B-Natriuretic Peptide 370.0 pg/mL (5.0-100.0) H 08/05/18 05:35 Total Protein 4.5 gm/dL (6.0-8.3) L 08/01/18 06:11 Albumin 1.6 gm/dL (3.7-5.3) L 08/01/18 06:11 Globulin 2.9 gm/dL 08/01/18 06:11 Albumin/Globulin Ratio 0.6 (1.0-1.8) L 08/01/18 06:11 Triglycerides 53 mg/dL (<150) 07/13/18 04:00 Cholesterol 41 mg/dL (<200) 07/13/18 04:00 LDL Cholesterol Direct 11 mg/dL (75-193) L 07/13/18 04:00 HDL Cholesterol 24 mg/dL (23-92) 07/13/18 04:00 TSH 1.21 uIU/ml (0.34-5.60) 07/13/18 04:00 Urine Source [place] 07/12/18 20:50 Urine Color YELLOW 07/12/18 20:50 Urine Clarity CLOUDY (CLEAR) H 07/12/18 20:50 Urine pH 8.5 (4.6 - 8.0) 07/12/18 20:50 Ur Specific [place] 1.015 (1.005-1.030) 07/12/18 20:50 Urine Protein 100 mg/dL (NEGATIVE) H 07/12/18 20:50 Urine Glucose (UA) NEGATIVE mg/dL (NEGATIVE) 07/12/18 20:50 Urine Ketones NEGATIVE mg/dL (NEGATIVE) 07/12/18 20:50 Urine Blood TRACE (NEGATIVE) 07/12/18 20:50 Urine Nitrate NEGATIVE (NEGATIVE) 07/12/18 20:50 Urine Bilirubin NEGATIVE (NEGATIVE) 07/12/18 20:50 Urine Urobilinogen 0.2 E.U./dL (0.2 - 1.0) 07/12/18 20:50 Ur Leukocyte Esterase LARGE (NEGATIVE) H 07/12/18 20:50 Urine RBC 2-5 /hpf (0-5) 07/12/18 20:50 Urine WBC >100 /hpf (0-5) H 07/12/18 20:50 Ur Epithelial Cells MODERATE /lpf (FEW) 07/12/18 20:50 Urine Bacteria MANY /hpf (NONE SEEN) H 07/12/18 20:50 Amikacin Peak 35.4 ug/mL (20.0-30.0) H 07/25/18 23:55 Amikacin Trough 14.1 ug/mL (1.0-8.0) H 07/25/18 20:30 Random Amikacin 14.8 ug/ml (1.0-30.0) 07/25/18 17:00 Random Vancomycin 25.5 ug/mL (5.0-40.0) 07/24/18 05:50 Blood Type O POSITIVE 08/02/18 09:20 Antibody Screen NEGATIVE 08/02/18 09:20 Crossmatch See Detail 08/02/18 09:20 - Physical Exam Vitals and I&O: Vital Signs Temp 97.1 F 08/05/18 11:40 Pulse 103 08/05/18 11:40 Resp 17 08/05/18 11:40 BP 113/48 08/05/18 11:40 Pulse Ox 98 08/05/18 11:40 Intake & Output 08/04/18 08/05/18 08/05/18 18:59 06:59 18:59 Intake Total 450 Output Total 170 Balance 280 Weight (lbs) 106.594 kg Intake: Oral 450 Output: Drainage 120 Sacrum 120 Urine 50 Other: # Bowel Movements 0 Stool Characteristics Soft Formed Weight Source Bedscale Active Medications: Current Medications Acetaminophen (Tylenol) 650 mg PO Q6H PRN PRN Reason: Mild Pain or Fever >101 Stop: 09/11/18 15:14 Last Admin: 08/05/18 08:31 Dose: 650 mg Acetaminophen/Hydrocodone Bitart ([place] 5mg/325mg) 1 tab PO Q4H PRN PRN Reason: Pain (Moderate) Stop: 09/27/18 14:34 Last Admin: 08/05/18 11:59 Dose: 1 tab Albuterol/Ipratropium (Duoneb Neb) 3 ml HHN Q4HRT PRN PRN Reason: Shortness of Breath or Wheeze Stop: 09/11/18 15:14 Albuterol/Ipratropium (Duoneb Neb) 3 ml HHN Q6HRT [facility] Stop: 09/21/18 18:59 Last Admin: 08/05/18 07:06 Dose: 3 ml Ascorbic Acid (Vitamin C) 500 mg PO DAILY [facility] Stop: 09/12/18 08:59 Last Admin: 08/05/18 08:32 Dose: 500 mg Atorvastatin Calcium (Lipitor) 20 mg PO HS [facility] Stop: 09/11/18 20:59 Last Admin: 08/04/18 20:38 Dose: 20 mg [place] Oil/[place] Balsam/Trypsin (Venelex) 1 appl TP DAILY [facility] Stop: 09/13/18 08:59 Last Admin: 08/05/18 08:36 Dose: 1 appl Dextrose (Glutose 40%) 18.75 gm PO PRN PRN PRN Reason: Blood Glucose less than 70 Stop: 09/11/18 04:10 Docusate Sodium (Colace) 100 mg PO BID [facility] Stop: 09/11/18 16:59 Last Admin: 08/05/18 08:32 Dose: 100 mg Epoetin Evelio (Epogen) 10,000 units SUBQ MoWeFr [facility] Stop: 09/29/18 12:44 Last Admin: 08/05/18 12:33 Dose: 10,000 units Famotidine (Pepcid) 20 mg PO DAILY [facility] Stop: 09/12/18 08:59 Last Admin: 08/05/18 08:32 Dose: 20 mg Folic Acid (Folate) 1 mg PO DAILY [facility] Stop: 09/12/18 08:59 Last Admin: 08/05/18 08:32 Dose: 1 mg Glucagon (Glucagen) 1 mg IM PRN PRN PRN Reason: Blood Glucose less than 70 Stop: 09/11/18 04:10 Heparin Sodium (Porcine) (Heparin) 5,000 units SUBQ Q12HR [facility] Stop: 09/26/18 20:59 Last Admin: 08/05/18 08:33 Dose: 5,000 units Insulin Aspart (Novolog Insulin Sliding Scale) 0 units SUBQ ACHS [facility]; Protocol Stop: 09/28/18 11:29 Last Admin: 08/05/18 12:33 Dose: 2 units Lactobacillus Rhamnosus (Culturelle 15b) 1 each PO DAILY [facility] Stop: 09/13/18 13:59 Last Admin: 08/05/18 08:32 Dose: 1 each Levothyroxine Sodium (Synthroid) 0.025 mg PO QDAC [facility] Stop: 09/12/18 07:29 Last Admin: 08/05/18 06:47 Dose: 0.025 mg Miscellaneous (Probiotic Screen) 1 ea PRN PRN PRN Reason: PROTOCOL Stop: 09/13/18 11:44 Miscellaneous (Clinical Monitoring) 1 ea MC DAILY PRN PRN Reason: RENAL DOSING Stop: 09/27/18 08:38 Oxcarbazepine (Trileptal) 600 mg PO BID [facility] Stop: 09/11/18 16:59 Last Admin: 08/05/18 08:32 Dose: 600 mg Risperidone (Risperdal) 2 mg PO HS [facility] Stop: 09/11/18 20:59 Last Admin: 08/04/18 20:39 Dose: 2 mg Senna (Senna) 17.2 mg PO BID [facility] Stop: 09/11/18 16:59 Last Admin: 08/05/18 08:32 Dose: 17.2 mg Sevelamer Carbonate (Renvela) 800 mg PO TIDWM [facility] Stop: 09/11/18 16:59 Last Admin: 08/05/18 11:59 Dose: 800 mg Vitamin B Complex/Vit C/Folic Acid (Vitamin B Complex W/Vitamin C) 1 tab PO DAILY [facility] Stop: 09/12/18 08:59 Last Admin: 08/05/18 08:32 Dose: 1 tab Zinc Sulfate (Zinc Sulfate) 220 mg PO DAILY [facility] Stop: 09/12/18 08:59 Last Admin: 08/05/18 08:32 Dose: 220 mg General: Alert, Mild distress HEENT: Atraumatic, EOMI Neck: Supple, +2 carotid pulse wo bruit Cardiovascular: Regular rate, Normal S1, Normal S2 Lungs: Other (scattered rhonchi) Abdomen: Bowel sounds, Soft Extremities: Edema ((+) 2-3 edema), Other ((+) 2 bipedal edema) Neurological: Sensation intact Skin: no Rash Psych/Mental Status: Mood NL - Procedures Procedures: Procedures Procedure Code Date BYPASS DESCENDING COLON TO CUTANEOUS, OPEN APPROACH [id number] 07/12/18 EXCISION OF L LOW LEG SUBCU/FASCIA, OPEN APPROACH [id number] 07/12/18 EXCISION OF SACRUM, OPEN APPROACH [id number] 07/12/18 EXCISION OF SIGMOID COLON, OPEN APPROACH [id number] 07/12/18 RESPIRATORY VENTILATION, LESS THAN 24 CONSECUTIVE HOURS [id number] 07/12/18 Assessment/Plan - Problem List Patient Problems: All Active Problems Anasarca (Acute) R60.1 Anemia (Acute) D64.9 CAD (coronary artery disease) (Acute) I25.10 CHF (congestive heart failure) (Acute) I50.9 CKD (chronic kidney disease) (Acute) N18.9 HTN (hypertension) (Acute) I10 UTI (urinary tract infection) (Acute) sacral stage 4 wound (Acute) - Assessment Assessment: ESRD on HD Hypothyroid Parkinson Ds. Fnc Quad Hep B,C GERD Left Calf ulcer Sacral Decub ulcer stage 4, w/ wound vacuum Cholelithiasis B/L HAP w/ effusions Peripheral edema Left SFV DVT S/P Diverting Colostomy - Plan Plan: Lab - Result Diagrams 07/14/18 05:00 07/14/18 05:00 Current Medications Acetaminophen (Tylenol) 650 mg PO Q6H PRN PRN Reason: Pain or Fever >101 Stop: 09/11/18 15:14 Acetaminophen/Hydrocodone Bitart ([place] 5mg/325mg) 1 tab PO Q6H PRN PRN Reason: Pain (Severe) Stop: 09/11/18 15:14 Albuterol/Ipratropium (Duoneb Neb) 3 ml HHN Q4HRT PRN PRN Reason: Shortness of Breath or Wheeze Stop: 09/11/18 15:14 Ascorbic Acid (Vitamin C) 500 mg PO DAILY [facility] Stop: 09/12/18 08:59 Last Admin: 07/14/18 08:27 Dose: 500 mg Atorvastatin Calcium (Lipitor) 20 mg PO HS [facility] Stop: 09/11/18 20:59 Last Admin: 07/13/18 21:05 Dose: 20 mg Dextrose (D50w) 50 ml IVP PRN PRN PRN Reason: Blood Glucose less than 70 Stop: 09/11/18 04:10 Dextrose (Glutose 40%) 18.75 gm PO PRN PRN PRN Reason: Blood Glucose less than 70 Stop: 09/11/18 04:10 Docusate Sodium (Colace) 100 mg PO BID [facility] Stop: 09/11/18 16:59 Last Admin: 07/14/18 08:27 Dose: 100 mg Famotidine (Pepcid) 20 mg PO DAILY [facility] Stop: 09/12/18 08:59 Last Admin: 07/14/18 08:27 Dose: 20 mg Folic Acid (Folate) 1 mg PO DAILY [facility] Stop: 09/12/18 08:59 Last Admin: 07/14/18 08:27 Dose: 1 mg Glucagon (Glucagen) 1 mg IM PRN PRN PRN Reason: Blood Glucose less than 70 Stop: 09/11/18 04:10 Piperacillin Sod/Tazobactam (Sod 2.25 gm/ Sodium Chloride) 50 mls @ 100 mls/hr IV Q6H [facility] Stop: 09/11/18 05:59 Last Admin: 07/14/18 06:05 Dose: Not Given Dextrose/Sodium Chloride (D5-0.45ns) 1,000 mls @ 50 mls/hr IV .Q20H [facility] Stop: 09/11/18 02:29 Last Admin: 07/13/18 04:03 Dose: 50 mls/hr Insulin Aspart (Novolog Insulin Sliding Scale) 0 units SUBQ Q6HR [facility]; Protocol Stop: 09/11/18 05:59 Last Admin: 07/14/18 06:05 Dose: Not Given Levothyroxine Sodium (Synthroid) 0.025 mg PO QDAC [facility] Stop: 09/12/18 07:29 Last Admin: 07/14/18 06:35 Dose: 0.025 mg Miscellaneous (Vancomycin Iv Per Pharmacy) 1 ea MC PRN PRN PRN Reason: PROTOCOL Stop: 09/10/18 23:40 Oxcarbazepine (Trileptal) 600 mg PO BID [facility] Stop: 09/11/18 16:59 Last Admin: 07/14/18 08:27 Dose: 600 mg Risperidone (Risperdal) 2 mg PO HS [facility] Stop: 09/11/18 20:59 Last Admin: 07/13/18 21:05 Dose: 2 mg Senna (Senna) 17.2 mg PO BID [facility] Stop: 09/11/18 16:59 Last Admin: 07/14/18 08:27 Dose: 17.2 mg Sevelamer Carbonate (Renvela) 800 mg PO TIDWM [facility] Stop: 09/11/18 16:59 Last Admin: 07/14/18 08:27 Dose: 800 mg Temazepam (Restoril) 15 mg PO HS PRN; Protocol PRN Reason: Insomnia Stop: 09/11/18 15:14 Vitamin B Complex/Vit C/Folic Acid (Vitamin B Complex W/Vitamin C) 1 tab PO DAILY [facility] Stop: 09/12/18 08:59 Last Admin: 07/14/18 08:27 Dose: 1 tab Zinc Sulfate (Zinc Sulfate) 220 mg PO DAILY [facility] Stop: 09/12/18 08:59 Last Admin: 07/14/18 08:27 Dose: 220 m Lab - Result Diagrams 08/05/18 05:35 08/05/18 05:35 continue wound care Pt. had diverting colostomy CXR much improved schedule for HD in am started on Puree diet Hgb/Hct improved to 10.4/31 after transfusion albumin for BP support Nutritional Asmnt/Malnutr-PDOC - Dietary Evaluation Malnutrition Findings (Please click <Entered> for more info): Nutritional Asmnt/Malnutrition Start: 07/13/18 13: 54 Text: Status: Complete Freq: Protocol: Document 07/13/18 13:56 ALDAIR (Rec: 07/13/18 14:10 ALDAIR SAAD- [id number]) Nutritional Asmnt/Malnutrition Patient General Information Nutritional Screening Consult Diagnosis ESRD, anasarca Pertinent Medical Hx/Surgical Hx Seizure, hep C, diabetes, CAD, HTN, CVA, quadreplegia, Parkinsons, ESRD Subjective Information Consult received for "Diabetic ". Per nursing notes, patient receives hemodialysis MWF and patient is non-verbal. Patient with 2+ pitting edema. Current Diet Order/ Nutrition Support Renal diet Patient / S.O Not Indicated Pertinent Medications D50W, D5-0.45NS @50 ml/hr, Glucagon, Novolog Pertinent Labs (07/13) Na 134, BUN 48, Cr 2.9, glucose 41-137, Ca 8.2, BNP 515, albumin 2 Nutritional Hx/Data Height 1.73 m Height (Calculated Centimeters) 172.7 Current Weight (lbs) 113.852 kg Weight (Calculated Kilograms) 113.9 Weight (Calculated Grams) 922986.7 [place] Body Weight 140 % [place] Body Weight 179 Body Mass Index (BMI) 38.1 Recent Weight Change No Weight Status Morbidly Obese GI Symptoms GI Symptoms None Last BM 07/13 x 1 Difficult in: Chewing Food Allergies No Cultural/Ethnic/Roman [employer] Belief none indicated Usual diet at home unknown Skin Integrity/Comment: Arian 10, ulceration on sacrum, left lower leg, abrasion on L heel, scar on right leg. Current %PO Good (75-100%) Estimated Nutritional Goals BEE in Kcals: Adj wt of IBW Calories/Kcals/Kg 27-32 kcal/kg (using 76.2kg ADj wt) Kcals Calculated ~4959-5522 kcal/day Protein g/k.2-1.5 gm/kg using Adj wt Protein Calculated ~90-115 gm/day Fluid: ml Per MD due to HD Nutritional Problem 2. Problem Problem Altered nutrition related lab values related to Etiology episodes of hypoglycemia, electrolyte imbalance aeb Signs/Symptoms: Na 134, glucose 41-137, Ca 8.2 1. Problem Problem Increased nutrient needs related to Etiology hypermetabolic state, impaired skin integrity aeb Signs/Symptoms: Pt on Hemodialysis and with multiple ulcerations Intervention/Recommendation Comments 1. Continue Renal diet as tolerated by patient. No need for DM restriction at this time due to hypoglycemia. 2. Consider fluid restriction due to HD, hyponatremia and edema. 3. Consider adding Prosource 1 packet with each meal for an additional 45gm protein. Expected Outcomes/Goals Expected Outcomes/Goals Oral intake >75% of meals, weight stable or trend toward ideal body weight, nutrition related labs WNL
[2018-08-05] MEDS: Atorvastatin Calcium 10 MG TAB PO SCH (21:09)
[2018-08-06] MEDS: Hydrocodone/APAP 5mg/325mg Tab PO PRN ×2 (00:55→08:57)
[2018-08-06] MEDS: Albuterol/Ipratropium Neb 3 ML AERS HHN SCH ×4 (00:59→19:12)
[2018-08-06] MEDS: Levothyroxine 0.025 Mg Tab PO SCH (07:11)
[2018-08-06] MEDS: INSULIN ASPART SLIDING SCALE 100 UNITS/ML UNIT SUBQ SCH ×4 (07:31→20:58)
[2018-08-06] MEDS: Docusate Sodium 100 mg/10 mL UD PO SCH ×2 (08:57→17:47)
[2018-08-06] MEDS: Vitamin B Complex w/Vitamin C Tab PO SCH (08:57)
[2018-08-06] MEDS: Lactobacillus Rhamnosus GG 15 Billion CFU CAP.SPRINK PO SCH (08:57)
[2018-08-06] MEDS: Venelex 60gm Tube TP SCH (08:57)
--- NOTE | 2018-08-06 13:30 | Infectious Disease Prog Note ---
Infectious Disease Subjective - Review of Systems Service Date: 08/06/18 Subjective: s/p Debridement of sacral wound and diverting colostomy. No fever. Infectious Disease Objective - Results Result Diagrams: 08/05/18 05:35 08/05/18 05:35 Recent Labs: Laboratory Last Values WBC 6.8 Th/cmm (4.8-10.8) 08/05/18 05:35 RBC 3.49 Mil/cmm (3.80-5.10) L 08/05/18 05:35 Hgb 10.1 gm/dL (12-16) L 08/05/18 05:35 Hct 30.4 % (41.0-60) L 08/05/18 05:35 MCV 87.2 fl (81-100) 08/05/18 05:35 MCH 29.0 pg (27.0-31.0) 08/05/18 05:35 MCHC Differential 33.2 pg (28.0-36.0) 08/05/18 05:35 RDW 15.6 % (11.5-20.0) 08/05/18 05:35 Plt Count 153 Th/cmm (150-400) 08/05/18 05:35 MPV 7.3 fl 08/05/18 05:35 Add Manual Diff YES 08/02/18 06:01 Neutrophils % 48.1 % (40.0-80.0) 08/05/18 05:35 Band Neutrophils % 4 % (0-10) 08/02/18 06:01 Lymphocytes % 39.6 % (20.0-50.0) 08/05/18 05:35 Monocytes % 11.2 % (2.0-10.0) H 08/05/18 05:35 Eosinophils % 1.0 % (0.0-5.0) 08/05/18 05:35 Basophils % 0.1 % (0.0-2.0) 08/05/18 05:35 Neutrophils (Manual) 53 % (40-80) 08/02/18 06:01 Lymphocytes 33 % (20-50) 08/02/18 06:01 Monocytes 10 % (2-10) 08/02/18 06:01 Eosinophils 0 % (0-5) 08/02/18 06:01 Basophils 0 % (0-3) 08/02/18 06:01 Hypochromia 2+ 08/02/18 06:01 Platelet Estimate ADEQUATE (NORMAL) 08/02/18 06:01 PT 17.0 SECONDS (9.5-11.5) H 07/28/18 04:20 INR 1.67 (0.5-1.4) H 07/28/18 04:20 PTT (Actin FS) 43.0 SECONDS (26.0-38.0) H 07/20/18 08:08 Specimen Source Arterial 07/23/18 17:00 Sample Site LB 07/23/18 17:00 pH 7.44 (7.35-7.45) 07/23/18 17:00 pCO2 44.0 mmHg (35.0-45.0) 07/23/18 17:00 pO2 86.0 mmHg (80.0-100.0) 07/23/18 17:00 HCO3 28.9 mEq/L (20.0-26.0) H 07/23/18 17:00 Base Excess 5.1 mEq/L (-3.0-3.0) H 07/23/18 17:00 O2 Saturation 97.0 % (92.0-100.0) 07/23/18 17:00 [place] Test NA 07/23/18 17:00 Vent Rate NA 07/23/18 17:00 Inspired O2 40 07/23/18 17:00 Tidal Volume NA 07/23/18 17:00 PEEP NA 07/23/18 17:00 Pressure (ins/psv/peep) NA 07/23/18 17:00 Critical Value E.QUINTEROS 07/23/18 17:00 Sodium 135 mEq/L (136-145) L 08/05/18 05:35 Potassium 3.9 mEq/L (3.5-5.1) 08/05/18 05:35 Chloride 102 mEq/L (98-107) 08/05/18 05:35 Carbon Dioxide 26.1 mEq/L (21.0-31.0) 08/05/18 05:35 Anion Gap 10.8 (7.0-16.0) 08/05/18 05:35 BUN 15 mg/dL (7-25) 08/05/18 05:35 Creatinine 3.8 mg/dL (0.6-1.2) H 08/05/18 05:35 Est GFR ( Amer) 16.2 ml/min (>90) 08/05/18 05:35 Est GFR (Non-Af Amer) 13.4 ml/min 08/05/18 05:35 BUN/Creatinine Ratio 3.9 08/05/18 05:35 Glucose 142 mg/dL (70-105) H 08/05/18 05:35 POC Glucose 166 MG/DL (70 - 105) H 08/06/18 11:36 Whole Bld Lactic Acid 1.29 mmol/L (0.60-1.99) 07/12/18 20:50 Calcium 8.9 mg/dL (8.6-10.3) 08/05/18 05:35 Magnesium 1.6 mg/dL (1.9-2.7) L 07/21/18 05:00 Total Bilirubin 0.4 mg/dL (0.3-1.0) 08/01/18 06:11 AST 19 U/L (13-39) 08/01/18 06:11 ALT 9 U/L (7-52) 08/01/18 06:11 Alkaline Phosphatase 120 U/L (34-104) H 08/01/18 06:11 Creatine Kinase 20 U/L (30-223) L 07/12/18 20:50 Troponin I 0.49 ng/mL (0.01-0.05) H* 07/13/18 15:20 B-Natriuretic Peptide 370.0 pg/mL (5.0-100.0) H 08/05/18 05:35 Total Protein 4.5 gm/dL (6.0-8.3) L 08/01/18 06:11 Albumin 1.6 gm/dL (3.7-5.3) L 08/01/18 06:11 Globulin 2.9 gm/dL 08/01/18 06:11 Albumin/Globulin Ratio 0.6 (1.0-1.8) L 08/01/18 06:11 Triglycerides 53 mg/dL (<150) 07/13/18 04:00 Cholesterol 41 mg/dL (<200) 07/13/18 04:00 LDL Cholesterol Direct 11 mg/dL (75-193) L 07/13/18 04:00 HDL Cholesterol 24 mg/dL (23-92) 07/13/18 04:00 TSH 1.21 uIU/ml (0.34-5.60) 07/13/18 04:00 Urine Source [place] 07/12/18 20:50 Urine Color YELLOW 07/12/18 20:50 Urine Clarity CLOUDY (CLEAR) H 07/12/18 20:50 Urine pH 8.5 (4.6 - 8.0) 07/12/18 20:50 Ur Specific [place] 1.015 (1.005-1.030) 07/12/18 20:50 Urine Protein 100 mg/dL (NEGATIVE) H 07/12/18 20:50 Urine Glucose (UA) NEGATIVE mg/dL (NEGATIVE) 07/12/18 20:50 Urine Ketones NEGATIVE mg/dL (NEGATIVE) 07/12/18 20:50 Urine Blood TRACE (NEGATIVE) 07/12/18 20:50 Urine Nitrate NEGATIVE (NEGATIVE) 07/12/18 20:50 Urine Bilirubin NEGATIVE (NEGATIVE) 07/12/18 20:50 Urine Urobilinogen 0.2 E.U./dL (0.2 - 1.0) 07/12/18 20:50 Ur Leukocyte Esterase LARGE (NEGATIVE) H 07/12/18 20:50 Urine RBC 2-5 /hpf (0-5) 07/12/18 20:50 Urine WBC >100 /hpf (0-5) H 07/12/18 20:50 Ur Epithelial Cells MODERATE /lpf (FEW) 07/12/18 20:50 Urine Bacteria MANY /hpf (NONE SEEN) H 07/12/18 20:50 Amikacin Peak 35.4 ug/mL (20.0-30.0) H 07/25/18 23:55 Amikacin Trough 14.1 ug/mL (1.0-8.0) H 07/25/18 20:30 Random Amikacin 14.8 ug/ml (1.0-30.0) 07/25/18 17:00 Random Vancomycin 25.5 ug/mL (5.0-40.0) 07/24/18 05:50 Blood Type O POSITIVE 08/02/18 09:20 Antibody Screen NEGATIVE 08/02/18 09:20 Crossmatch See Detail 08/02/18 09:20 - Physical Exam Vitals and I&O: Vital Signs Temp 98.6 F 08/06/18 12:08 Pulse 102 09/27/18 12:08 Resp 17 08/06/18 12:08 BP 96/41 08/06/18 12:08 Pulse Ox 100 08/06/18 12:08 Intake & Output 08/05/18 08/06/18 08/06/18 18:59 06:59 18:59 Intake Total 550 100 Output Total 125 70 Balance 425 30 Weight (lbs) 106.594 kg 106.594 kg Intake: Oral 550 100 Output: Drainage 100 50 Sacrum 100 50 Urine 15 5 Stool 10 15 Other: # Bowel Movements 0 Stool Characteristics Soft Soft Formed Formed Weight Source Bedscale Bedscale Active Medications: Current Medications Acetaminophen (Tylenol) 650 mg PO Q6H PRN PRN Reason: Mild Pain or Fever >101 Stop: 09/11/18 15:14 Last Admin: 08/05/18 08:31 Dose: 650 mg Acetaminophen/Hydrocodone Bitart ([place] 5mg/325mg) 1 tab PO Q4H PRN PRN Reason: Pain (Moderate) Stop: 09/27/18 14:34 Last Admin: 08/06/18 08:57 Dose: 1 tab Albuterol/Ipratropium (Duoneb Neb) 3 ml HHN Q4HRT PRN PRN Reason: Shortness of Breath or Wheeze Stop: 09/11/18 15:14 Albuterol/Ipratropium (Duoneb Neb) 3 ml HHN Q6HRT [place] Stop: 09/21/18 18:59 Last Admin: 08/06/18 07:26 Dose: 3 ml Ascorbic Acid (Vitamin C) 500 mg PO DAILY [facility] Stop: 09/12/18 08:59 Last Admin: 08/06/18 08:57 Dose: 500 mg Atorvastatin Calcium (Lipitor) 20 mg PO HS [facility] Stop: 09/11/18 20:59 Last Admin: 08/05/18 21:09 Dose: 20 mg Palisade Oil/[place]is[place] Balsam/Trypsin (Venelex) 1 appl TP DAILY [facility] Stop: 09/13/18 08:59 Last Admin: 08/06/18 08:57 Dose: 1 appl Dextrose (Glutose 40%) 18.75 gm PO PRN PRN PRN Reason: Blood Glucose less than 70 Stop: 09/11/18 04:10 Docusate Sodium (Colace) 100 mg PO BID [facility] Stop: 09/11/18 16:59 Last Admin: 08/06/18 08:57 Dose: 100 mg Epoetin Evelio (Epogen) 10,000 units SUBQ MoWeFr [facility] Stop: 09/29/18 12:44 Last Admin: 08/05/18 12:33 Dose: 10,000 units Famotidine (Pepcid) 20 mg PO DAILY [facility] Stop: 09/12/18 08:59 Last Admin: 08/06/18 08:57 Dose: 20 mg Folic Acid (Folate) 1 mg PO DAILY [place] Stop: 09/12/18 08:59 Last Admin: 08/06/18 08:57 Dose: 1 mg Glucagon (Glucagen) 1 mg IM PRN PRN PRN Reason: Blood Glucose less than 70 Stop: 09/11/18 04:10 Heparin Sodium (Porcine) (Heparin) 5,000 units SUBQ Q12HR [facility] Stop: 09/26/18 20:59 Last Admin: 08/06/18 08:56 Dose: 5,000 units Insulin Aspart (Novolog Insulin Sliding Scale) 0 units SUBQ [facility]; Protocol Stop: 09/28/18 11:29 Last Admin: 08/06/18 11:43 Dose: 2 units Lactobacillus Rhamnosus (Culturelle 15b) 1 each PO DAILY [facility] Stop: 09/13/18 13:59 Last Admin: 08/06/18 08:57 Dose: 1 each Levothyroxine Sodium (Synthroid) 0.025 mg PO QDAC [facility] Stop: 09/12/18 07:29 Last Admin: 08/06/18 07:11 Dose: 0.025 mg Miscellaneous (Probiotic Screen) 1 ea MC PRN PRN PRN Reason: PROTOCOL Stop: 09/13/18 11:44 Miscellaneous (Clinical Monitoring) 1 ea MC DAILY PRN PRN Reason: RENAL DOSING Stop: 09/27/18 08:38 Oxcarbazepine (Trileptal) 600 mg PO BID [facility] Stop: 09/11/18 16:59 Last Admin: 08/06/18 08:56 Dose: 600 mg Risperidone (Risperdal) 2 mg PO HS [facility] Stop: 09/11/18 20:59 Last Admin: 08/05/18 22:15 Dose: 2 mg Senna (Senna) 17.2 mg PO BID [facility] Stop: 09/11/18 16:59 Last Admin: 08/06/18 08:56 Dose: 17.2 mg Sevelamer Carbonate (Renvela) 800 mg PO TIDWM [place] Stop: 09/11/18 16:59 Last Admin: 08/06/18 11:43 Dose: 800 mg Vitamin B Complex/Vit C/Folic Acid (Vitamin B Complex W/Vitamin C) 1 tab PO DAILY [facility] Stop: 09/12/18 08:59 Last Admin: 08/06/18 08:57 Dose: 1 tab Zinc Sulfate (Zinc Sulfate) 220 mg PO DAILY [facility] Stop: 09/12/18 08:59 Last Admin: 08/06/18 08:57 Dose: 220 mg General: no acute distress, well developed, well nourished HEENT: atraumatic, normocephalic, PERRLA Neck: supple Cardiovascular: S1S2, regular Lungs: clear to auscultation bilaterally, no clear to percussion, no crackles Abdomen: soft, other (Colostomy.), no tender, no distended Extremities: no cyanosis, no clubbing, no edema Neurological: awake, alert, oriented Skin: other (sacral wound) - Procedures Procedures: Procedures Procedure Code Date BYPASS DESCENDING COLON TO CUTANEOUS, OPEN APPROACH [id number] 07/12/18 EXCISION OF L LOW LEG SUBCU/FASCIA, OPEN APPROACH [id number] 07/12/18 EXCISION OF SACRUM, OPEN APPROACH [id number] 07/12/18 EXCISION OF SIGMOID COLON, OPEN APPROACH [id number] 07/12/18 RESPIRATORY VENTILATION, LESS THAN 24 CONSECUTIVE HOURS [id number] 07/12/18 Infectious Disease Assmt/Plan - Problem List Patient Problems: All Active Problems Anasarca (Acute) R60.1 Anemia (Acute) D64.9 CAD (coronary artery disease) (Acute) I25.10 CHF (congestive heart failure) (Acute) I50.9 CKD (chronic kidney disease) (Acute) N18.9 HTN (hypertension) (Acute) I10 UTI (urinary tract infection) (Acute) sacral stage 4 wound (Acute) - Assessment Assessment: 1. UTI treated. 2. Staph CN in blood contaminant. 3. Hypoglycemia. 4. Diabetes mellitus type 1 with episodes of hypoglycemia. 5. Hypertension. 6. Anemia of chronic disease. 7. Coronary artery disease, 8. CHF.. 9. Anasarca 10. 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 11. sacral stage 4 wound. No evidence of osteimyelitis, 12. S/p Diverting colostomy. - Plan Plan: off antibiotics. wound care. Nutritional Asmnt/Malnutr-PDOC - Dietary Evaluation Malnutrition Findings (Please click <Entered> for more info): Nutritional Asmnt/Malnutrition Start: 07/13/18 13: 54 Text: Status: Complete Freq: Protocol: Document 07/13/18 13:56 MMULHERN (Rec: 07/13/18 14:10 [email or web address] [id number]) Nutritional Asmnt/Malnutrition Patient General Information Nutritional Screening Consult Diagnosis ESRD, anasarca Pertinent Medical Hx/Surgical Hx Seizure, hep C, diabetes, CAD, HTN, CVA, quadreplegia, Parkinsons, ESRD Subjective Information Consult received for "Diabetic ". Per nursing notes, patient receives hemodialysis MWF and patient is non-verbal. Patient with 2+ pitting edema. Current Diet Order/ Nutrition Support Renal diet Patient / S.O Not Indicated Pertinent Medications D50W, D5-0.45NS @50 ml/hr, Glucagon, Novolog Pertinent Labs (07/13) Na 134, BUN 48, Cr 2.9, glucose 41-137, Ca 8.2, BNP 515, albumin 2 Nutritional Hx/Data Height 1.73 m Height (Calculated Centimeters) 172.7 Current Weight (lbs) 113.852 kg Weight (Calculated Kilograms) 113.9 Weight (Calculated Grams) 043391.7 [place] Body Weight 140 % [place] Body Weight 179 Body Mass Index (BMI) 38.1 Recent Weight Change No Weight Status Morbidly Obese GI Symptoms GI Symptoms None Last BM 07/13 x 1 Difficult in: Chewing Food Allergies No Cultural/Ethnic/Gnosticist Belief none indicated Usual diet at home unknown Skin Integrity/Comment: Arian 10, ulceration on sacrum, left lower leg, abrasion on L heel, scar on right leg. Current %PO Good (75-100%) Estimated Nutritional Goals BEE in Kcals: Adj wt of IBW Calories/Kcals/Kg 27-32 kcal/kg (using 76.2kg ADj wt) Kcals Calculated ~1503-7586 kcal/day Protein g/k.2-1.5 gm/kg using Adj wt Protein Calculated ~90-115 gm/day Fluid: ml Per MD due to HD Nutritional Problem 2. Problem Problem Altered nutrition related lab values related to Etiology episodes of hypoglycemia, electrolyte imbalance aeb Signs/Symptoms: Na 134, glucose 41-137, Ca 8.2 1. Problem Problem Increased nutrient needs related to Etiology hypermetabolic state, impaired skin integrity aeb Signs/Symptoms: Pt on Hemodialysis and with multiple ulcerations Intervention/Recommendation Comments 1. Continue Renal diet as tolerated by patient. No need for DM restriction at this time due to hypoglycemia. 2. Consider fluid restriction due to HD, hyponatremia and edema. 3. Consider adding Prosource 1 packet with each meal for an additional 45gm protein. Expected Outcomes/Goals Expected Outcomes/Goals Oral intake >75% of meals, weight stable or trend toward ideal body weight, nutrition related labs WNL
--- NOTE | 2018-08-06 15:29 | General Progress Note ---
Subjective - Review of Systems Events since last encounter: in no distress awake alert s/p Debridement of sacral wound and diverting colostomy. Objective - Results Result Diagrams: 08/05/18 05:35 08/05/18 05:35 Recent Labs: Laboratory Last Values WBC 6.8 Th/cmm (4.8-10.8) 08/05/18 05:35 RBC 3.49 Mil/cmm (3.80-5.10) L 08/05/18 05:35 Hgb 10.1 gm/dL (12-16) L 08/05/18 05:35 Hct 30.4 % (41.0-60) L 08/05/18 05:35 MCV 87.2 fl (81-100) 08/05/18 05:35 MCH 29.0 pg (27.0-31.0) 08/05/18 05:35 MCHC Differential 33.2 pg (28.0-36.0) 08/05/18 05:35 RDW 15.6 % (11.5-20.0) 08/05/18 05:35 Plt Count 153 Th/cmm (150-400) 08/05/18 05:35 MPV 7.3 fl 08/05/18 05:35 Add Manual Diff YES 08/02/18 06:01 Neutrophils % 48.1 % (40.0-80.0) 08/05/18 05:35 Band Neutrophils % 4 % (0-10) 08/02/18 06:01 Lymphocytes % 39.6 % (20.0-50.0) 08/05/18 05:35 Monocytes % 11.2 % (2.0-10.0) H 08/05/18 05:35 Eosinophils % 1.0 % (0.0-5.0) 08/05/18 05:35 Basophils % 0.1 % (0.0-2.0) 08/05/18 05:35 Neutrophils (Manual) 53 % (40-80) 08/02/18 06:01 Lymphocytes 33 % (20-50) 08/02/18 06:01 Monocytes 10 % (2-10) 08/02/18 06:01 Eosinophils 0 % (0-5) 08/02/18 06:01 Basophils 0 % (0-3) 08/02/18 06:01 Hypochromia 2+ 08/02/18 06:01 Platelet Estimate ADEQUATE (NORMAL) 08/02/18 06:01 PT 17.0 SECONDS (9.5-11.5) H 07/28/18 04:20 INR 1.67 (0.5-1.4) H 07/28/18 04:20 PTT (Actin FS) 43.0 SECONDS (26.0-38.0) H 07/20/18 08:08 Specimen Source Arterial 07/23/18 17:00 Sample Site LB 07/23/18 17:00 pH 7.44 (7.35-7.45) 07/23/18 17:00 pCO2 44.0 mmHg (35.0-45.0) 07/23/18 17:00 pO2 86.0 mmHg (80.0-100.0) 07/23/18 17:00 HCO3 28.9 mEq/L (20.0-26.0) H 07/23/18 17:00 Base Excess 5.1 mEq/L (-3.0-3.0) H 07/23/18 17:00 O2 Saturation 97.0 % (92.0-100.0) 07/23/18 17:00 [place] Test NA 07/23/18 17:00 Vent Rate NA 07/23/18 17:00 Inspired O2 40 07/23/18 17:00 Tidal Volume NA 07/23/18 17:00 PEEP NA 07/23/18 17:00 Pressure (ins/psv/peep) NA 07/23/18 17:00 Critical Value E.QUINTEROS 07/23/18 17:00 Sodium 135 mEq/L (136-145) L 08/05/18 05:35 Potassium 3.9 mEq/L (3.5-5.1) 08/05/18 05:35 Chloride 102 mEq/L (98-107) 08/05/18 05:35 Carbon Dioxide 26.1 mEq/L (21.0-31.0) 08/05/18 05:35 Anion Gap 10.8 (7.0-16.0) 08/05/18 05:35 BUN 15 mg/dL (7-25) 08/05/18 05:35 Creatinine 3.8 mg/dL (0.6-1.2) H 08/05/18 05:35 Est GFR ( Amer) 16.2 ml/min (>90) 08/05/18 05:35 Est GFR (Non-Af Amer) 13.4 ml/min 08/05/18 05:35 BUN/Creatinine Ratio 3.9 08/05/18 05:35 Glucose 142 mg/dL (70-105) H 08/05/18 05:35 POC Glucose 166 MG/DL (70 - 105) H 08/06/18 11:36 Whole Bld Lactic Acid 1.29 mmol/L (0.60-1.99) 07/12/18 20:50 Calcium 8.9 mg/dL (8.6-10.3) 08/05/18 05:35 Magnesium 1.6 mg/dL (1.9-2.7) L 07/21/18 05:00 Total Bilirubin 0.4 mg/dL (0.3-1.0) 08/01/18 06:11 AST 19 U/L (13-39) 08/01/18 06:11 ALT 9 U/L (7-52) 08/01/18 06:11 Alkaline Phosphatase 120 U/L (34-104) H 08/01/18 06:11 Creatine Kinase 20 U/L (30-223) L 07/12/18 20:50 Troponin I 0.49 ng/mL (0.01-0.05) H* 07/13/18 15:20 B-Natriuretic Peptide 370.0 pg/mL (5.0-100.0) H 08/05/18 05:35 Total Protein 4.5 gm/dL (6.0-8.3) L 08/01/18 06:11 Albumin 1.6 gm/dL (3.7-5.3) L 08/01/18 06:11 Globulin 2.9 gm/dL 08/01/18 06:11 Albumin/Globulin Ratio 0.6 (1.0-1.8) L 08/01/18 06:11 Triglycerides 53 mg/dL (<150) 07/13/18 04:00 Cholesterol 41 mg/dL (<200) 07/13/18 04:00 LDL Cholesterol Direct 11 mg/dL (75-193) L 07/13/18 04:00 HDL Cholesterol 24 mg/dL (23-92) 07/13/18 04:00 TSH 1.21 uIU/ml (0.34-5.60) 07/13/18 04:00 Urine Source [place] 07/12/18 20:50 Urine Color YELLOW 07/12/18 20:50 Urine Clarity CLOUDY (CLEAR) H 07/12/18 20:50 Urine pH 8.5 (4.6 - 8.0) 07/12/18 20:50 Ur Specific [place] 1.015 (1.005-1.030) 07/12/18 20:50 Urine Protein 100 mg/dL (NEGATIVE) H 07/12/18 20:50 Urine Glucose (UA) NEGATIVE mg/dL (NEGATIVE) 07/12/18 20:50 Urine Ketones NEGATIVE mg/dL (NEGATIVE) 07/12/18 20:50 Urine Blood TRACE (NEGATIVE) 07/12/18 20:50 Urine Nitrate NEGATIVE (NEGATIVE) 07/12/18 20:50 Urine Bilirubin NEGATIVE (NEGATIVE) 07/12/18 20:50 Urine Urobilinogen 0.2 E.U./dL (0.2 - 1.0) 07/12/18 20:50 Ur Leukocyte Esterase LARGE (NEGATIVE) H 07/12/18 20:50 Urine RBC 2-5 /hpf (0-5) 07/12/18 20:50 Urine WBC >100 /hpf (0-5) H 07/12/18 20:50 Ur Epithelial Cells MODERATE /lpf (FEW) 07/12/18 20:50 Urine Bacteria MANY /hpf (NONE SEEN) H 07/12/18 20:50 Amikacin Peak 35.4 ug/mL (20.0-30.0) H 07/25/18 23:55 Amikacin Trough 14.1 ug/mL (1.0-8.0) H 07/25/18 20:30 Random Amikacin 14.8 ug/ml (1.0-30.0) 07/25/18 17:00 Random Vancomycin 25.5 ug/mL (5.0-40.0) 07/24/18 05:50 HIV 1&2 Antibody Screen NEGATIVE (NEG) 08/06/18 13:12 Blood Type O POSITIVE 08/02/18 09:20 Antibody Screen NEGATIVE 08/02/18 09:20 Crossmatch See Detail 08/02/18 09:20 - Physical Exam Vitals and I&O: Vital Signs Temp 98.7 F 08/06/18 15:26 Pulse 98 08/06/18 15:26 Resp 17 08/06/18 15:26 BP 109/59 08/06/18 15:26 Pulse Ox 100 08/06/18 15:26 Intake & Output 08/05/18 08/06/18 08/06/18 18:59 06:59 18:59 Intake Total 550 100 Output Total 125 70 Balance 425 30 Weight (lbs) 106.594 kg 106.594 kg Intake: Oral 550 100 Output: Drainage 100 50 Sacrum 100 50 Urine 15 5 Stool 10 15 Other: # Bowel Movements 0 Stool Characteristics Soft Soft Soft Formed Formed Formed Weight Source Bedscale Bedscale Active Medications: Current Medications Acetaminophen (Tylenol) 650 mg PO Q6H PRN PRN Reason: Mild Pain or Fever >101 Stop: 09/11/18 15:14 Last Admin: 08/05/18 08:31 Dose: 650 mg Acetaminophen/Hydrocodone Bitart ([place] 5mg/325mg) 1 tab PO Q4H PRN PRN Reason: Pain (Moderate) Stop: 09/27/18 14:34 Last Admin: 08/06/18 08:57 Dose: 1 tab Albuterol/Ipratropium (Duoneb Neb) 3 ml HHN Q4HRT PRN PRN Reason: Shortness of Breath or Wheeze Stop: 09/11/18 15:14 Albuterol/Ipratropium (Duoneb Neb) 3 ml HHN Q6HRT [facility] Stop: 09/21/18 18:59 Last Admin: 08/06/18 13:51 Dose: 3 ml Ascorbic Acid (Vitamin C) 500 mg PO DAILY [facility] Stop: 09/12/18 08:59 Last Admin: 08/06/18 08:57 Dose: 500 mg Atorvastatin Calcium (Lipitor) 20 mg PO HS [facility] Stop: 09/11/18 20:59 Last Admin: 08/05/18 21:09 Dose: 20 mg [place] Oil/Indonesian Balsam/Trypsin (Venelex) 1 appl TP DAILY [facility] Stop: 09/13/18 08:59 Last Admin: 08/06/18 08:57 Dose: 1 appl Dextrose (Glutose 40%) 18.75 gm PO PRN PRN PRN Reason: Blood Glucose less than 70 Stop: 09/11/18 04:10 Docusate Sodium (Colace) 100 mg PO BID [facility] Stop: 09/11/18 16:59 Last Admin: 08/06/18 08:57 Dose: 100 mg Epoetin Evelio (Epogen) 10,000 units SUBQ MoWeFr [facility] Stop: 09/29/18 12:44 Last Admin: 08/05/18 12:33 Dose: 10,000 units Famotidine (Pepcid) 20 mg PO DAILY [facility] Stop: 09/12/18 08:59 Last Admin: 08/06/18 08:57 Dose: 20 mg Folic Acid (Folate) 1 mg PO DAILY [facility] Stop: 09/12/18 08:59 Last Admin: 08/06/18 08:57 Dose: 1 mg Glucagon (Glucagen) 1 mg IM PRN PRN PRN Reason: Blood Glucose less than 70 Stop: 09/11/18 04:10 Heparin Sodium (Porcine) (Heparin) 5,000 units SUBQ Q12HR [facility] Stop: 09/26/18 20:59 Last Admin: 08/06/18 08:56 Dose: 5,000 units Insulin Aspart (Novolog Insulin Sliding Scale) 0 units SUBQ ACHS [facility]; Protocol Stop: 09/28/18 11:29 Last Admin: 08/06/18 11:43 Dose: 2 units Lactobacillus Rhamnosus (Culturelle 15b) 1 each PO DAILY [facility] Stop: 09/13/18 13:59 Last Admin: 08/06/18 08:57 Dose: 1 each Levothyroxine Sodium (Synthroid) 0.025 mg PO QDAC [facility] Stop: 09/12/18 07:29 Last Admin: 08/06/18 07:11 Dose: 0.025 mg Miscellaneous (Probiotic Screen) 1 ea MC PRN PRN PRN Reason: PROTOCOL Stop: 09/13/18 11:44 Miscellaneous (Clinical Monitoring) 1 ea MC DAILY PRN PRN Reason: RENAL DOSING Stop: 09/27/18 08:38 Oxcarbazepine (Trileptal) 600 mg PO BID [facility] Stop: 09/11/18 16:59 Last Admin: 08/06/18 08:56 Dose: 600 mg Risperidone (Risperdal) 2 mg PO HS [facility] Stop: 09/11/18 20:59 Last Admin: 08/05/18 22:15 Dose: 2 mg Senna (Senna) 17.2 mg PO BID [facility] Stop: 09/11/18 16:59 Last Admin: 08/06/18 08:56 Dose: 17.2 mg Sevelamer Carbonate (Renvela) 800 mg PO TIDWM [facility] Stop: 09/11/18 16:59 Last Admin: 08/06/18 11:43 Dose: 800 mg Vitamin B Complex/Vit C/Folic Acid (Vitamin B Complex W/Vitamin C) 1 tab PO DAILY [facility] Stop: 09/12/18 08:59 Last Admin: 08/06/18 08:57 Dose: 1 tab Zinc Sulfate (Zinc Sulfate) 220 mg PO DAILY [facility] Stop: 09/12/18 08:59 Last Admin: 08/06/18 08:57 Dose: 220 mg General: Alert, Mild distress HEENT: Atraumatic, EOMI Neck: Supple, +2 carotid pulse wo bruit Cardiovascular: Regular rate, Normal S1, Normal S2 Lungs: Other (scattered rhonchi) Abdomen: Bowel sounds, Soft Extremities: Edema ((+) 2-3 edema), Other ((+) 2 bipedal edema) Neurological: Sensation intact Skin: no Rash Psych/Mental Status: Mood NL - Procedures Procedures: Procedures Procedure Code Date BYPASS DESCENDING COLON TO CUTANEOUS, OPEN APPROACH [id number] 07/12/18 EXCISION OF L LOW LEG SUBCU/FASCIA, OPEN APPROACH [id number] 07/12/18 EXCISION OF SACRUM, OPEN APPROACH [id number] 07/12/18 EXCISION OF SIGMOID COLON, OPEN APPROACH [id number] 07/12/18 RESPIRATORY VENTILATION, LESS THAN 24 CONSECUTIVE HOURS [id number] 07/12/18 Assessment/Plan - Problem List Patient Problems: All Active Problems Anasarca (Acute) R60.1 Anemia (Acute) D64.9 CAD (coronary artery disease) (Acute) I25.10 CHF (congestive heart failure) (Acute) I50.9 CKD (chronic kidney disease) (Acute) N18.9 HTN (hypertension) (Acute) I10 UTI (urinary tract infection) (Acute) sacral stage 4 wound (Acute) - Plan Plan: as per order sheet Nutritional Asmnt/Malnutr-PDOC - Dietary Evaluation Malnutrition Findings (Please click <Entered> for more info): Nutritional Asmnt/Malnutrition Start: 07/13/18 13: 54 Text: Status: Complete Freq: Protocol: Document 07/13/18 13:56 ALDAIR (Rec: 07/13/18 14:10 ALDAIR [id number]) Nutritional Asmnt/Malnutrition Patient General Information Nutritional Screening Consult Diagnosis ESRD, anasarca Pertinent Medical Hx/Surgical Hx Seizure, hep C, diabetes, CAD, HTN, CVA, quadreplegia, Parkinsons, ESRD Subjective Information Consult received for "Diabetic ". Per nursing notes, patient receives hemodialysis MWF and patient is non-verbal. Patient with 2+ pitting edema. Current Diet Order/ Nutrition Support Renal diet Patient / S.O Not Indicated Pertinent Medications D50W, D5-0.45NS @50 ml/hr, Glucagon, Novolog Pertinent Labs (07/13) Na 134, BUN 48, Cr 2.9, glucose 41-137, Ca 8.2, BNP 515, albumin 2 Nutritional Hx/Data Height 1.73 m Height (Calculated Centimeters) 172.7 Current Weight (lbs) 113.852 kg Weight (Calculated Kilograms) 113.9 Weight (Calculated Grams) 290680.7 [place] Body Weight 140 % [place] Body Weight 179 Body Mass Index (BMI) 38.1 Recent Weight Change No Weight Status Morbidly Obese GI Symptoms GI Symptoms None Last BM 07/13 x 1 Difficult in: Chewing Food Allergies No Cultural/Ethnic/Scientologist Belief none indicated Usual diet at home unknown Skin Integrity/Comment: Arian 10, ulceration on sacrum, left lower leg, abrasion on L heel, scar on right leg. Current %PO Good (75-100%) Estimated Nutritional Goals BEE in Kcals: Adj wt of IBW Calories/Kcals/Kg 27-32 kcal/kg (using 76.2kg ADj wt) Kcals Calculated ~6906-6265 kcal/day Protein g/k.2-1.5 gm/kg using Adj wt Protein Calculated ~90-115 gm/day Fluid: ml Per MD due to HD Nutritional Problem 2. Problem Problem Altered nutrition related lab values related to Etiology episodes of hypoglycemia, electrolyte imbalance aeb Signs/Symptoms: Na 134, glucose 41-137, Ca 8.2 1. Problem Problem Increased nutrient needs related to Etiology hypermetabolic state, impaired skin integrity aeb Signs/Symptoms: Pt on Hemodialysis and with multiple ulcerations Intervention/Recommendation Comments 1. Continue Renal diet as tolerated by patient. No need for DM restriction at this time due to hypoglycemia. 2. Consider fluid restriction due to HD, hyponatremia and edema. 3. Consider adding Prosource 1 packet with each meal for an additional 45gm protein. Expected Outcomes/Goals Expected Outcomes/Goals Oral intake >75% of meals, weight stable or trend toward ideal body weight, nutrition related labs WNL
--- NOTE | 2018-08-06 19:52 | General Progress Note ---
Subjective - Review of Systems Service Date: 08/06/18 Subjective: alert, comfortable Objective - Results Result Diagrams: 08/05/18 05:35 08/05/18 05:35 Recent Labs: Laboratory Last Values WBC 6.8 Th/cmm (4.8-10.8) 08/05/18 05:35 RBC 3.49 Mil/cmm (3.80-5.10) L 08/05/18 05:35 Hgb 10.1 gm/dL (12-16) L 08/05/18 05:35 Hct 30.4 % (41.0-60) L 08/05/18 05:35 MCV 87.2 fl (81-100) 08/05/18 05:35 MCH 29.0 pg (27.0-31.0) 08/05/18 05:35 MCHC Differential 33.2 pg (28.0-36.0) 08/05/18 05:35 RDW 15.6 % (11.5-20.0) 08/05/18 05:35 Plt Count 153 Th/cmm (150-400) 08/05/18 05:35 MPV 7.3 fl 08/05/18 05:35 Add Manual Diff YES 08/02/18 06:01 Neutrophils % 48.1 % (40.0-80.0) 08/05/18 05:35 Band Neutrophils % 4 % (0-10) 08/02/18 06:01 Lymphocytes % 39.6 % (20.0-50.0) 08/05/18 05:35 Monocytes % 11.2 % (2.0-10.0) H 08/05/18 05:35 Eosinophils % 1.0 % (0.0-5.0) 08/05/18 05:35 Basophils % 0.1 % (0.0-2.0) 08/05/18 05:35 Neutrophils (Manual) 53 % (40-80) 08/02/18 06:01 Lymphocytes 33 % (20-50) 08/02/18 06:01 Monocytes 10 % (2-10) 08/02/18 06:01 Eosinophils 0 % (0-5) 08/02/18 06:01 Basophils 0 % (0-3) 08/02/18 06:01 Hypochromia 2+ 08/02/18 06:01 Platelet Estimate ADEQUATE (NORMAL) 08/02/18 06:01 PT 17.0 SECONDS (9.5-11.5) H 07/28/18 04:20 INR 1.67 (0.5-1.4) H 07/28/18 04:20 PTT (Actin FS) 43.0 SECONDS (26.0-38.0) H 07/20/18 08:08 Specimen Source Arterial 07/23/18 17:00 Sample Site LB 07/23/18 17:00 pH 7.44 (7.35-7.45) 07/23/18 17:00 pCO2 44.0 mmHg (35.0-45.0) 07/23/18 17:00 pO2 86.0 mmHg (80.0-100.0) 07/23/18 17:00 HCO3 28.9 mEq/L (20.0-26.0) H 07/23/18 17:00 Base Excess 5.1 mEq/L (-3.0-3.0) H 07/23/18 17:00 O2 Saturation 97.0 % (92.0-100.0) 07/23/18 17:00 [place] Test NA 07/23/18 17:00 Vent Rate NA 07/23/18 17:00 Inspired O2 40 07/23/18 17:00 Tidal Volume NA 07/23/18 17:00 PEEP NA 07/23/18 17:00 Pressure (ins/psv/peep) NA 07/23/18 17:00 Critical Value E.QUINTEROS 07/23/18 17:00 Sodium 135 mEq/L (136-145) L 08/05/18 05:35 Potassium 3.9 mEq/L (3.5-5.1) 08/05/18 05:35 Chloride 102 mEq/L (98-107) 08/05/18 05:35 Carbon Dioxide 26.1 mEq/L (21.0-31.0) 08/05/18 05:35 Anion Gap 10.8 (7.0-16.0) 08/05/18 05:35 BUN 15 mg/dL (7-25) 08/05/18 05:35 Creatinine 3.8 mg/dL (0.6-1.2) H 08/05/18 05:35 Est GFR ( Amer) 16.2 ml/min (>90) 08/05/18 05:35 Est GFR (Non-Af Amer) 13.4 ml/min 08/05/18 05:35 BUN/Creatinine Ratio 3.9 08/05/18 05:35 Glucose 142 mg/dL (70-105) H 08/05/18 05:35 POC Glucose 161 MG/DL (70 - 105) H 08/06/18 17:27 Whole Bld Lactic Acid 1.29 mmol/L (0.60-1.99) 07/12/18 20:50 Calcium 8.9 mg/dL (8.6-10.3) 08/05/18 05:35 Magnesium 1.6 mg/dL (1.9-2.7) L 07/21/18 05:00 Total Bilirubin 0.4 mg/dL (0.3-1.0) 08/01/18 06:11 AST 19 U/L (13-39) 08/01/18 06:11 ALT 9 U/L (7-52) 08/01/18 06:11 Alkaline Phosphatase 120 U/L (34-104) H 08/01/18 06:11 Creatine Kinase 20 U/L (30-223) L 07/12/18 20:50 Troponin I 0.49 ng/mL (0.01-0.05) H* 07/13/18 15:20 B-Natriuretic Peptide 370.0 pg/mL (5.0-100.0) H 08/05/18 05:35 Total Protein 4.5 gm/dL (6.0-8.3) L 08/01/18 06:11 Albumin 1.6 gm/dL (3.7-5.3) L 08/01/18 06:11 Globulin 2.9 gm/dL 08/01/18 06:11 Albumin/Globulin Ratio 0.6 (1.0-1.8) L 08/01/18 06:11 Triglycerides 53 mg/dL (<150) 07/13/18 04:00 Cholesterol 41 mg/dL (<200) 07/13/18 04:00 LDL Cholesterol Direct 11 mg/dL (75-193) L 07/13/18 04:00 HDL Cholesterol 24 mg/dL (23-92) 07/13/18 04:00 TSH 1.21 uIU/ml (0.34-5.60) 07/13/18 04:00 Urine Source [place] 07/12/18 20:50 Urine Color YELLOW 07/12/18 20:50 Urine Clarity CLOUDY (CLEAR) H 07/12/18 20:50 Urine pH 8.5 (4.6 - 8.0) 07/12/18 20:50 Ur Specific [place] 1.015 (1.005-1.030) 07/12/18 20:50 Urine Protein 100 mg/dL (NEGATIVE) H 07/12/18 20:50 Urine Glucose (UA) NEGATIVE mg/dL (NEGATIVE) 07/12/18 20:50 Urine Ketones NEGATIVE mg/dL (NEGATIVE) 07/12/18 20:50 Urine Blood TRACE (NEGATIVE) 07/12/18 20:50 Urine Nitrate NEGATIVE (NEGATIVE) 07/12/18 20:50 Urine Bilirubin NEGATIVE (NEGATIVE) 07/12/18 20:50 Urine Urobilinogen 0.2 E.U./dL (0.2 - 1.0) 07/12/18 20:50 Ur Leukocyte Esterase LARGE (NEGATIVE) H 07/12/18 20:50 Urine RBC 2-5 /hpf (0-5) 07/12/18 20:50 Urine WBC >100 /hpf (0-5) H 07/12/18 20:50 Ur Epithelial Cells MODERATE /lpf (FEW) 07/12/18 20:50 Urine Bacteria MANY /hpf (NONE SEEN) H 07/12/18 20:50 Amikacin Peak 35.4 ug/mL (20.0-30.0) H 07/25/18 23:55 Amikacin Trough 14.1 ug/mL (1.0-8.0) H 07/25/18 20:30 Random Amikacin 14.8 ug/ml (1.0-30.0) 07/25/18 17:00 Random Vancomycin 25.5 ug/mL (5.0-40.0) 07/24/18 05:50 HIV 1&2 Antibody Screen NEGATIVE (NEG) 08/06/18 13:12 Blood Type O POSITIVE 08/02/18 09:20 Antibody Screen NEGATIVE 08/02/18 09:20 Crossmatch See Detail 08/02/18 09:20 - Physical Exam Vitals and I&O: Vital Signs Temp 98.7 F 08/06/18 15:26 Pulse 98 08/06/18 19:12 Resp 20 08/06/18 19:12 BP 109/59 08/06/18 15:26 Pulse Ox 99 08/06/18 19:12 Intake & Output 08/06/18 08/06/18 08/07/18 06:59 18:59 06:59 Intake Total 100 500 Output Total 70 100 Balance 30 400 Weight (lbs) 106.594 kg 106.594 kg Intake: Oral 100 500 Output: Drainage 50 100 Sacrum 50 100 Urine 5 0 Stool 15 0 Other: # Bowel Movements 0 Stool Characteristics Soft Soft Formed Formed Weight Source Bedscale Bedscale Active Medications: Current Medications Acetaminophen (Tylenol) 650 mg PO Q6H PRN PRN Reason: Mild Pain or Fever >101 Stop: 09/11/18 15:14 Last Admin: 08/05/18 08:31 Dose: 650 mg Acetaminophen/Hydrocodone Bitart ([place] 5mg/325mg) 1 tab PO Q4H PRN PRN Reason: Pain (Moderate) Stop: 09/27/18 14:34 Last Admin: 08/06/18 08:57 Dose: 1 tab Albuterol/Ipratropium (Duoneb Neb) 3 ml HHN Q4HRT PRN PRN Reason: Shortness of Breath or Wheeze Stop: 09/11/18 15:14 Albuterol/Ipratropium (Duoneb Neb) 3 ml HHN Q6HRT [facility] Stop: 09/21/18 18:59 Last Admin: 08/06/18 19:12 Dose: 3 ml Ascorbic Acid (Vitamin C) 500 mg PO DAILY [facility] Stop: 09/12/18 08:59 Last Admin: 08/06/18 08:57 Dose: 500 mg Atorvastatin Calcium (Lipitor) 20 mg PO HS [facility] Stop: 09/11/18 20:59 Last Admin: 08/05/18 21:09 Dose: 20 mg [place] Oil/Macedonian Balsam/Trypsin (Venelex) 1 appl TP DAILY [facility] Stop: 09/13/18 08:59 Last Admin: 08/06/18 08:57 Dose: 1 appl Dextrose (Glutose 40%) 18.75 gm PO PRN PRN PRN Reason: Blood Glucose less than 70 Stop: 09/11/18 04:10 Docusate Sodium (Colace) 100 mg PO BID [facility] Stop: 09/11/18 16:59 Last Admin: 08/06/18 17:47 Dose: 100 mg Epoetin Evelio (Epogen) 10,000 units SUBQ MoWeFr [facility] Stop: 09/29/18 12:44 Last Admin: 08/05/18 12:33 Dose: 10,000 units Famotidine (Pepcid) 20 mg PO DAILY [facility] Stop: 09/12/18 08:59 Last Admin: 08/06/18 08:57 Dose: 20 mg Folic Acid (Folate) 1 mg PO DAILY [facility] Stop: 09/12/18 08:59 Last Admin: 08/06/18 08:57 Dose: 1 mg Glucagon (Glucagen) 1 mg IM PRN PRN PRN Reason: Blood Glucose less than 70 Stop: 09/11/18 04:10 Heparin Sodium (Porcine) (Heparin) 5,000 units SUBQ Q12HR [facility] Stop: 09/26/18 20:59 Last Admin: 08/06/18 08:56 Dose: 5,000 units Insulin Aspart (Novolog Insulin Sliding Scale) 0 units SUBQ ACHS [facility]; Protocol Stop: 09/28/18 11:29 Last Admin: 08/06/18 17:33 Dose: 2 units Lactobacillus Rhamnosus (Culturelle 15b) 1 each PO DAILY [facility] Stop: 09/13/18 13:59 Last Admin: 08/06/18 08:57 Dose: 1 each Levothyroxine Sodium (Synthroid) 0.025 mg PO QDAC [facility] Stop: 09/12/18 07:29 Last Admin: 08/06/18 07:11 Dose: 0.025 mg Miscellaneous (Probiotic Screen) 1 ea MC PRN PRN PRN Reason: PROTOCOL Stop: 09/13/18 11:44 Miscellaneous (Clinical Monitoring) 1 ea MC DAILY PRN PRN Reason: RENAL DOSING Stop: 09/27/18 08:38 Oxcarbazepine (Trileptal) 600 mg PO BID [facility] Stop: 09/11/18 16:59 Last Admin: 08/06/18 17:47 Dose: 600 mg Risperidone (Risperdal) 2 mg PO HS [facility] Stop: 09/11/18 20:59 Last Admin: 08/05/18 22:15 Dose: 2 mg Senna (Senna) 17.2 mg PO BID [facility] Stop: 09/11/18 16:59 Last Admin: 08/06/18 17:47 Dose: 17.2 mg Sevelamer Carbonate (Renvela) 800 mg PO TIDWM [facility] Stop: 09/11/18 16:59 Last Admin: 08/06/18 17:47 Dose: 800 mg Vitamin B Complex/Vit C/Folic Acid (Vitamin B Complex W/Vitamin C) 1 tab PO DAILY [facility] Stop: 09/12/18 08:59 Last Admin: 08/06/18 08:57 Dose: 1 tab Zinc Sulfate (Zinc Sulfate) 220 mg PO DAILY [facility] Stop: 09/12/18 08:59 Last Admin: 08/06/18 08:57 Dose: 220 mg General: Alert, Mild distress HEENT: Atraumatic, EOMI Neck: Supple, +2 carotid pulse wo bruit Cardiovascular: Regular rate, Normal S1, Normal S2 Lungs: Other (scattered rhonchi) Abdomen: Bowel sounds, Soft Extremities: Edema ((+) 2-3 edema), Other ((+) 2 bipedal edema) Neurological: Sensation intact Skin: no Rash Psych/Mental Status: Mood NL - Procedures Procedures: Procedures Procedure Code Date BYPASS DESCENDING COLON TO CUTANEOUS, OPEN APPROACH [id number] 07/12/18 EXCISION OF L LOW LEG SUBCU/FASCIA, OPEN APPROACH [id number] 07/12/18 EXCISION OF SACRUM, OPEN APPROACH [id number] 07/12/18 EXCISION OF SIGMOID COLON, OPEN APPROACH [id number] 07/12/18 RESPIRATORY VENTILATION, LESS THAN 24 CONSECUTIVE HOURS [id number] 07/12/18 Assessment/Plan - Problem List Patient Problems: All Active Problems Anasarca (Acute) R60.1 Anemia (Acute) D64.9 CAD (coronary artery disease) (Acute) I25.10 CHF (congestive heart failure) (Acute) I50.9 CKD (chronic kidney disease) (Acute) N18.9 HTN (hypertension) (Acute) I10 UTI (urinary tract infection) (Acute) sacral stage 4 wound (Acute) - Assessment Assessment: ESRD on HD Hypothyroid Parkinson Ds. Fnc Quad Hep B,C GERD Left Calf ulcer Sacral Decub ulcer stage 4, w/ wound vacuum Cholelithiasis B/L HAP w/ effusions Peripheral edema Left SFV DVT S/P Diverting Colostomy - Plan Plan: Lab - Result Diagrams 07/14/18 05:00 07/14/18 05:00 Current Medications Acetaminophen (Tylenol) 650 mg PO Q6H PRN PRN Reason: Pain or Fever >101 Stop: 09/11/18 15:14 Acetaminophen/Hydrocodone Bitart ([place] 5mg/325mg) 1 tab PO Q6H PRN PRN Reason: Pain (Severe) Stop: 09/11/18 15:14 Albuterol/Ipratropium (Duoneb Neb) 3 ml HHN Q4HRT PRN PRN Reason: Shortness of Breath or Wheeze Stop: 09/11/18 15:14 Ascorbic Acid (Vitamin C) 500 mg PO DAILY [facility] Stop: 09/12/18 08:59 Last Admin: 07/14/18 08:27 Dose: 500 mg Atorvastatin Calcium (Lipitor) 20 mg PO HS [facility] Stop: 09/11/18 20:59 Last Admin: 07/13/18 21:05 Dose: 20 mg Dextrose (D50w) 50 ml IVP PRN PRN PRN Reason: Blood Glucose less than 70 Stop: 09/11/18 04:10 Dextrose (Glutose 40%) 18.75 gm PO PRN PRN PRN Reason: Blood Glucose less than 70 Stop: 09/11/18 04:10 Docusate Sodium (Colace) 100 mg PO BID [facility] Stop: 09/11/18 16:59 Last Admin: 07/14/18 08:27 Dose: 100 mg Famotidine (Pepcid) 20 mg PO DAILY [facility] Stop: 09/12/18 08:59 Last Admin: 07/14/18 08:27 Dose: 20 mg Folic Acid (Folate) 1 mg PO DAILY [facility] Stop: 09/12/18 08:59 Last Admin: 07/14/18 08:27 Dose: 1 mg Glucagon (Glucagen) 1 mg IM PRN PRN PRN Reason: Blood Glucose less than 70 Stop: 09/11/18 04:10 Piperacillin Sod/Tazobactam (Sod 2.25 gm/ Sodium Chloride) 50 mls @ 100 mls/hr IV Q6H [facility] Stop: 09/11/18 05:59 Last Admin: 07/14/18 06:05 Dose: Not Given Dextrose/Sodium Chloride (D5-0.45ns) 1,000 mls @ 50 mls/hr IV .Q20H [facility] Stop: 09/11/18 02:29 Last Admin: 07/13/18 04:03 Dose: 50 mls/hr Insulin Aspart (Novolog Insulin Sliding Scale) 0 units SUBQ Q6HR [facility]; Protocol Stop: 09/11/18 05:59 Last Admin: 07/14/18 06:05 Dose: Not Given Levothyroxine Sodium (Synthroid) 0.025 mg PO QDAC [facility] Stop: 09/12/18 07:29 Last Admin: 07/14/18 06:35 Dose: 0.025 mg Miscellaneous (Vancomycin Iv Per Pharmacy) 1 [facility] PRN PRN PRN Reason: PROTOCOL Stop: 09/10/18 23:40 Oxcarbazepine (Trileptal) 600 mg PO BID [facility] Stop: 09/11/18 16:59 Last Admin: 07/14/18 08:27 Dose: 600 mg Risperidone (Risperdal) 2 mg PO HS [facility] Stop: 09/11/18 20:59 Last Admin: 07/13/18 21:05 Dose: 2 mg Senna (Senna) 17.2 mg PO BID [facility] Stop: 09/11/18 16:59 Last Admin: 07/14/18 08:27 Dose: 17.2 mg Sevelamer Carbonate (Renvela) 800 mg PO TIDWM [facility] Stop: 09/11/18 16:59 Last Admin: 07/14/18 08:27 Dose: 800 mg Temazepam (Restoril) 15 mg PO HS PRN; Protocol PRN Reason: Insomnia Stop: 09/11/18 15:14 Vitamin B Complex/Vit C/Folic Acid (Vitamin B Complex W/Vitamin C) 1 tab PO DAILY [facility] Stop: 09/12/18 08:59 Last Admin: 07/14/18 08:27 Dose: 1 tab Zinc Sulfate (Zinc Sulfate) 220 mg PO DAILY [facility] Stop: 09/12/18 08:59 Last Admin: 07/14/18 08:27 Dose: 220 m Lab - Result Diagrams 08/05/18 05:35 08/05/18 05:35 continue wound care Pt. had diverting colostomy CXR much improved schedule for HD in am started on Puree diet Hgb/Hct improved to 10.1/30.4 after transfusion albumin for BP support Placement in progress Nutritional Asmnt/Malnutr-PDOC - Dietary Evaluation Malnutrition Findings (Please click <Entered> for more info): Nutritional Asmnt/Malnutrition Start: 07/13/18 13: 54 Text: Status: Complete Freq: Protocol: Document 07/13/18 13:56 HUNTERMac (Rec: 07/13/18 14:10 ALDAIR SAAD- [id number]) Nutritional Asmnt/Malnutrition Patient General Information Nutritional Screening Consult Diagnosis ESRD, anasarca Pertinent Medical Hx/Surgical Hx Seizure, hep C, diabetes, CAD, HTN, CVA, quadreplegia, Parkinsons, ESRD Subjective Information Consult received for "Diabetic ". Per nursing notes, patient receives hemodialysis MWF and patient is non-verbal. Patient with 2+ pitting edema. Current Diet Order/ Nutrition Support Renal diet Patient / S.O Not Indicated Pertinent Medications D50W, D5-0.45NS @50 ml/hr, Glucagon, Novolog Pertinent Labs (07/13) Na 134, BUN 48, Cr 2.9, glucose 41-137, Ca 8.2, BNP 515, albumin 2 Nutritional Hx/Data Height 1.73 m Height (Calculated Centimeters) 172.7 Current Weight (lbs) 113.852 kg Weight (Calculated Kilograms) 113.9 Weight (Calculated Grams) 106715.7 [place] Body Weight 140 % [place] Body Weight 179 Body Mass Index (BMI) 38.1 Recent Weight Change No Weight Status Morbidly Obese GI Symptoms GI Symptoms None Last BM 07/13 x 1 Difficult in: Chewing Food Allergies No Cultural/Ethnic/Mosque Belief none indicated Usual diet at home unknown Skin Integrity/Comment: Arian 10, ulceration on sacrum, left lower leg, abrasion on L heel, scar on right leg. Current %PO Good (75-100%) Estimated Nutritional Goals BEE in Kcals: Adj wt of IBW Calories/Kcals/Kg 27-32 kcal/kg (using 76.2kg ADj wt) Kcals Calculated ~0041-0007 kcal/day Protein g/k.2-1.5 gm/kg using Adj wt Protein Calculated ~90-115 gm/day Fluid: ml Per MD due to HD Nutritional Problem 2. Problem Problem Altered nutrition related lab values related to Etiology episodes of hypoglycemia, electrolyte imbalance aeb Signs/Symptoms: Na 134, glucose 41-137, Ca 8.2 1. Problem Problem Increased nutrient needs related to Etiology hypermetabolic state, impaired skin integrity aeb Signs/Symptoms: Pt on Hemodialysis and with multiple ulcerations Intervention/Recommendation Comments 1. Continue Renal diet as tolerated by patient. No need for DM restriction at this time due to hypoglycemia. 2. Consider fluid restriction due to HD, hyponatremia and edema. 3. Consider adding Prosource 1 packet with each meal for an additional 45gm protein. Expected Outcomes/Goals Expected Outcomes/Goals Oral intake >75% of meals, weight stable or trend toward ideal body weight, nutrition related labs WNL
[2018-08-06] MEDS: Atorvastatin Calcium 10 MG TAB PO SCH (20:53)
[2018-08-07] MEDS: Albuterol/Ipratropium Neb 3 ML AERS HHN SCH ×4 (01:06→19:35)
[2018-08-07] MEDS: INSULIN ASPART SLIDING SCALE 100 UNITS/ML UNIT SUBQ SCH ×4 (06:29→21:54)
[2018-08-07 07:00] LABS: ANION GAP 11.4 (7.0-16.0); CALCIUM SERUM 9.1 mg/dL (8.6-10.3); CARBON DIOXIDE 25.4 mEq/L (21.0-31.0); CREATININE - SERUM 3.7 mg/dL (0.6-1.2); GFR AFRICAN-AMERICAN 16.7 ml/min (>90); GFR NON AFRICAN-AMERICAN 13.8 ml/min; POTASSIUM SERUM 3.8 mEq/L (3.5-5.1)
[2018-08-07 08:08] LABS: HEP A AB IGM Negative (Negative); HEP B CORE IGM Negative (Negative); HEP B SURFACE AG QL Negative (Negative); HEP C ANTIBODY >11.0 s/co ratio (0.0-0.9)
[2018-08-07] MEDS: Lactobacillus Rhamnosus GG 15 Billion CFU CAP.SPRINK PO SCH (09:45)
[2018-08-07] MEDS: Docusate Sodium 100 mg/10 mL UD PO SCH ×2 (09:45→18:26)
[2018-08-07] MEDS: Vitamin B Complex w/Vitamin C Tab PO SCH (09:45)
[2018-08-07] MEDS: Levothyroxine 0.025 Mg Tab PO SCH (11:00)
[2018-08-07] MEDS: Hydrocodone/APAP 5mg/325mg Tab PO PRN (15:42)
[2018-08-07] MEDS: Epoetin Alfa 20000 Units/mL Vial SUBQ SCH (15:42)
[2018-08-07] MEDS: Atorvastatin Calcium 10 MG TAB PO SCH (21:54)
--- NOTE | 2018-08-15 05:49 | Discharge Summary ---
DATE OF DISCHARGE: 08/07/2018 HOSPITAL COURSE: This patient known to have history of generalized anasarca; renal failure; end-stage renal disease; shortness of breath; hypoxemia; diabetes; history of hypertension; anemia; quadriparesis, functional; history of Parkinson disease; history of seizure. The patient was admitted and monitored. The patient found to have seizures and also have difficulty with ____ control and to have difficulty in placing her ____. The patient was stable on 08/07/2018. FINAL DIAGNOSES: Seizures, controlled; anasarca, better; renal failure; hypoxemia, improved; diabetes; hypertension; anemia; quadriparesis. The patient was sent back to [facility] where her primary will be following the patient. Condition at the time of discharge to [place] was stable. JOB# [id number]
== END 2018-08-07 22:30 | DRG 364 ==
LOC: ER 20:06 → TELE 23:40 → ICU 07-22 17:31 → TELE 07-31 05:55
PROVIDERS: ADMIT Internal Medicine; ATTEND Internal Medicine
PROC: 5A1D70Z Performance of Urinary Filtration, Intermittent, Less than 6 Hours Per Day (ICD-10-PCS; 2018-07-14)
PROC: 5A1D70Z Performance of Urinary Filtration, Intermittent, Less than 6 Hours Per Day (ICD-10-PCS; 2018-07-16)
PROC: 5A1D70Z Performance of Urinary Filtration, Intermittent, Less than 6 Hours Per Day (ICD-10-PCS; 2018-07-17)
PROC: 5A1D70Z Performance of Urinary Filtration, Intermittent, Less than 6 Hours Per Day (ICD-10-PCS; 2018-07-18)
PROC: 5A1D70Z Performance of Urinary Filtration, Intermittent, Less than 6 Hours Per Day (ICD-10-PCS; 2018-07-20)
PROC: 5A1D70Z Performance of Urinary Filtration, Intermittent, Less than 6 Hours Per Day (ICD-10-PCS; 2018-07-21)
PROC: 0QB10ZZ Excision of Sacrum, Open Approach (ICD-10-PCS; principal; 2018-07-22)
PROC: 0JBP0ZZ Excision of Left Lower Leg Subcutaneous Tissue and Fascia, Open Approach (ICD-10-PCS; 2018-07-22)
PROC: 0D1M0Z4 Bypass Descending Colon to Cutaneous, Open Approach (ICD-10-PCS; 2018-07-22)
PROC: 0DBN0ZZ Excision of Sigmoid Colon, Open Approach (ICD-10-PCS; 2018-07-22)
PROC: 5A1935Z Respiratory Ventilation, Less than 24 Consecutive Hours (ICD-10-PCS; 2018-07-22)
PROC: 5A1D70Z Performance of Urinary Filtration, Intermittent, Less than 6 Hours Per Day (ICD-10-PCS; 2018-07-23)
PROC: 5A1D70Z Performance of Urinary Filtration, Intermittent, Less than 6 Hours Per Day (ICD-10-PCS; 2018-07-25)
PROC: 5A1D70Z Performance of Urinary Filtration, Intermittent, Less than 6 Hours Per Day (ICD-10-PCS; 2018-07-27)
PROC: 5A1D70Z Performance of Urinary Filtration, Intermittent, Less than 6 Hours Per Day (ICD-10-PCS; 2018-07-29)
PROC: 5A1D70Z Performance of Urinary Filtration, Intermittent, Less than 6 Hours Per Day (ICD-10-PCS; 2018-07-31)
PROC: 30233N1 Transfusion of Nonautologous Red Blood Cells into Peripheral Vein, Percutaneous Approach (ICD-10-PCS; 2018-08-02)
PROC: 5A1D70Z Performance of Urinary Filtration, Intermittent, Less than 6 Hours Per Day (ICD-10-PCS; 2018-08-03)
PROC: 5A1D70Z Performance of Urinary Filtration, Intermittent, Less than 6 Hours Per Day (ICD-10-PCS; 2018-08-05)
PROC: 5A1D70Z Performance of Urinary Filtration, Intermittent, Less than 6 Hours Per Day (ICD-10-PCS; 2018-08-07)
DX: L89.154 Pressure ulcer of sacral region, stage 4 (principal); I21.9 Acute myocardial infarction, unspecified; J96.01 Acute respiratory failure with hypoxia; I13.2 Hypertensive heart and chronic kidney disease with heart failure and with stage 5 chronic kidney disease, or end stage renal disease; E43 Unspecified severe protein-calorie malnutrition; J18.9 Pneumonia, unspecified organism; R53.2 Functional quadriplegia; E11.22 Type 2 diabetes mellitus with diabetic chronic kidney disease; I82.412 Acute embolism and thrombosis of left femoral vein; G20 Parkinson's disease; N18.6 End stage renal disease; E87.1 Hypo-osmolality and hyponatremia; I25.10 Atherosclerotic heart disease of native coronary artery without angina pectoris; N39.0 Urinary tract infection, site not specified; K21.9 Gastro-esophageal reflux disease without esophagitis; G40.909 Epilepsy, unspecified, not intractable, without status epilepticus; R47.01 Aphasia; B19.20 Unspecified viral hepatitis C without hepatic coma; E03.9 Hypothyroidism, unspecified; L97.229 Non-pressure chronic ulcer of left calf with unspecified severity; E66.01 Morbid (severe) obesity due to excess calories; B19.10 Unspecified viral hepatitis B without hepatic coma; D63.8 Anemia in other chronic diseases classified elsewhere; I50.9 Heart failure, unspecified; K80.20 Calculus of gallbladder without cholecystitis without obstruction; R32 Unspecified urinary incontinence; K59.09 Other constipation; E11.621 Type 2 diabetes mellitus with foot ulcer; L97.519 Non-pressure chronic ulcer of other part of right foot with unspecified severity; E11.649 Type 2 diabetes mellitus with hypoglycemia without coma; Y95 Nosocomial condition; G31.84 Mild cognitive impairment of uncertain or unknown etiology; F39 Unspecified mood [affective] disorder; D50.9 Iron deficiency anemia, unspecified; Z99.2 Dependence on renal dialysis; Z68.35 Body mass index [BMI] 35.0-35.9, adult; Z74.01 Bed confinement status; Z79.4 Long term (current) use of insulin; Z86.73 Personal history of transient ischemic attack (TIA), and cerebral infarction without residual deficits
CPT/HCPCS: 36415-UA; 36600-90; 71045-TC; 71250-TC; 78315-TC; 80048-TC; 80053-TC; 80061-TC; 80074-90; 80150-TC; 80202-TC; 81001-TC; 82550-TC; 82803-TC; 82948-90; 83036-90; 83605; 83735-TC; 83880-TC; 84443-TC; 84484-TC; 85007-TC; 85014-TC; 85018-TC; 85025-TC; 85610-TC; 86703-TC; 86850-TC; 86900-TC; 86901-TC; 86922-TC; 87070; 87070-90; 87086-90; 90937; 93005; 93970-TC-50; 94002; 94003; 94760; 96372; 99201; A9503; J0278; J0885; J1170; J1644; J1815; J2405; J2543; J2704; J2710; J3010; J3243; J3370; J7040; J7799; P9016; P9046; X6024; X6258; X6452; Z7610